=== PATIENT | female | born 1940 | race Caucasian/White ===

== ENCOUNTER → 2017-08-10 | Day surgery (SDC) | payer MEDICARE, SELFPAY | END | disposition home or self-care (01) | PROVIDERS: PCP Physician Assistant; Visit Provider Ophthalmology | DX: H25.12 Age-related nuclear cataract, left eye (principal); H40.119 Primary open-angle glaucoma, unspecified eye; I10 Essential (primary) hypertension | CPT/HCPCS: 66984; J2250; J3010 ==

== ENCOUNTER → 2017-09-17 09:58 | Outpatient (CLI) | payer MEDICARE, SELFPAY ==
--- NOTE | 2017-09-17 | DI.MG.S_ITS ---
BILATERAL DIGITAL DIAGNOSTIC MAMMOGRAM 3D/2D POST LUMPECTOMY: 09/17/2017 CLINICAL: Breast pain. Comparison is made to exams dated: 05/13/2016 mammogram, 09/14/2014 mammogram, and 07/21/2013 mammogram - [facility]. The tissue of both breasts is predominantly fatty. The left breast has post-operative findings. No significant masses, calcifications, or other findings are seen in either breast. IMPRESSION: NEGATIVE There is no abnormality seen in the left breast to correspond with the area of clinical concern, however, clinical followup is recommended. There is no mammographic evidence of malignancy. A 1 year screening mammogram is recommended. Note is made of the history of left breast cancer treated with surgery alone. Recommend continued clinical followup of the surgical site and if needed bilateral breast MRI with and without contrast. This exam was interpreted at Station ID: [id number]. NOTE: For mammograms, a report in lay terms will be sent to the patient. Approximately 15% of breast malignancies will not be visualized mammographically. In the management of a palpable breast mass, a negative mammogram must not discourage biopsy of a clinically suspicious lesion. Electronically Signed By: Rick Berry M.D. cj/:09/17/2017 12:33:40 copy to: ERNA JORGE letter sent: Clinical Evaluation ACR BI-RADS Category 1: Negative [id number]
== END ==
PROVIDERS: PCP Physician Assistant; Visit Provider Physician Assistant
DX: N64.4 Mastodynia (principal)
CPT/HCPCS: 77066; G0279

== ENCOUNTER → 2017-11-02 14:52 | Outpatient (CLI) | payer MEDICARE, SELFPAY ==
--- NOTE | 2017-11-02 | DI.RAD.S_ITS ---
PROCEDURE: XR HIP W PEL IF DONE RT 2V INDICATIONS: PAIN IN RIGHT HIP TECHNIQUE: AP pelvis with lateral view(s) of the right hip(s). COMPARISON: [facility], , HIPBILAT 3TO4V W PEL IF PERFD, 02/23/2017, 10:41. FINDINGS: Bones: There is a subcapital fracture of the right femoral neck with minimal displacement. Pelvic ring appears intact. No suspicious bony lesions. Soft tissues: The visualized bowel gas pattern is normal. No suspicious soft tissue calcifications. IMPRESSION: Minimally displaced subcapital fracture of the right femoral neck. Dictated by: Rosalina Calderón M.D. on 11/02/2017 at 16:05 Approved by: Rosalina Calderón M.D. on 11/02/2017 at 16:07
== END ==
PROVIDERS: PCP Physician Assistant; Visit Provider Physician Assistant
DX: S72.011A Unspecified intracapsular fracture of right femur, initial encounter for closed fracture (principal); M25.551 Pain in right hip
CPT/HCPCS: 73502

== ENCOUNTER 2017-11-02 15:42 | Inpatient (IN) | payer MEDICARE, SELFPAY ==
[2017-11-02] VITALS (9 sets, daily range): BP systolic 128–157; BP diastolic 80–96; PULSE 75–87; RESP 13–20; TEMP 36.4–36.6; O2SAT 95–100; BMI 26.9
--- NOTE | 2017-11-02 16:20 | ED.LOWEXIN ---
HPI - Extremity Injury (Lower) <Taty Leung PA-C - Last Filed: 11/02/17 22:44> General Chief Complaint: Extremity Injury, Lower Stated Complaint: HIP FX Time Seen by Provider: 11/02/17 16:20 Source: patient Mode of arrival: ambulatory Limitations: no limitations History of Present Illness HPI Narrative: This 77-year-old female was walking out of a restaurant when she is slipped on a curb and fell onto her right hip. She denies any other contusions or injuries such as head contusion. She does not have neck pain or spinal pain, and states that she actually walked on the curb and drove to her scheduled doctor's appointment, but it was painful to walk. She was sent for x-ray from that office and found to have a fracture so presents here. She states that she has pain with certain movements such as trying to cross her leg, but is not having pain in the hip at rest. She denies any weakness or paresthesia in the leg. She states that she simply tripped and denies any chest pain, dizziness, or other symptoms leading to her fall Related Data Home Medications Medication Instructions Recorded Confirmed cholecalciferol (vitamin D3) 1 tab PO QDAY #0 05/29/11 11/02/17 [Vitamin D3] melatonin 10 mg PO HSP PRN #0 05/29/11 11/02/17 multivitamin [Multiple Vitamins] 1 tab PO QDAY #0 05/29/11 11/02/17 simvastatin 20 mg PO HS #0 05/29/11 11/02/17 spironolactone 12.5 mg PO QDAY #0 05/29/11 11/02/17 yrwedmr-ixzzdzbcmjnci-oqhmbhhm 2 tab PO Q6HP PRN #0 01/12/17 11/02/17 [Excedrin Extra Strength] carvedilol [Coreg] 3.125 mg PO BID #0 01/12/17 11/02/17 omega 0-nes-skf-fish oil [Omera] 1,200 mg PO QDAY #0 01/12/17 11/02/17 timolol maleate 1 drp OPHTH BID #0 01/12/17 11/02/17 latanoprost [Xalatan] 1 drp OPHTH HS #0 08/10/17 11/02/17 aspirin 81 mg PO DAILY 11/02/17 11/02/17 bupropion HCl 150 mg PO BID 11/02/17 11/02/17 cetirizine 10 mg PO DAILY 11/02/17 11/02/17 denosumab [Prolia] 60 mg SUB-Q [id number] 11/02/17 11/02/17 duloxetine See Label Instructions .ROUTE 11/02/17 11/02/17 .COMPLEX meloxicam 15 mg PO DAILY 11/02/17 11/02/17 omeprazole 20 mg PO BID 11/02/17 11/02/17 oxycodone-acetaminophen [Percocet] 1 tab PO Q12H PRN 11/02/17 11/02/17 zonisamide 100 mg PO DAILY 11/02/17 11/02/17 Previous Rx's Medication Instructions Recorded erenumab-aooe 70 mg/mL 70 mg SUBCUT QMONTH #1 ml 10/28/17 subcutaneous auto-injector Allergies Allergy/AdvReac Type Severity Reaction Status Date / Time No Known Drug Allergies Allergy Unverified 10/28/17 13:12 Review of Systems <Taty Leung PA-C - Last Filed: 11/02/17 22:44> Review of Systems All systems reviewed & are unremarkable except as noted in HPI and below Exam <Taty Leung PA-C - Last Filed: 11/02/17 22:44> Initial Vital Signs Initial Vital Signs: Vital Signs Temperature 98 F 11/02/17 15:56 Pulse Rate 87 11/02/17 15:56 Respiratory Rate 13 11/02/17 15:56 Blood Pressure 147/81 H 11/02/17 15:56 Pulse Oximetry 98 11/02/17 15:56 GENERAL APPEARANCE: Patient sitting comfortably, in no distress. NECK: Supple LUNGS: Clear to auscultation bilaterally. HEART: Rate and rhythm regular, normal S1 and S2, no S3 or S4. ABDOMEN: Soft, nontender, nondistended palpable DERMATOLOGIC: No edema or ecchymoses on the hip, nor abrasions. She has various small abrasions on the right knee and right upper extremity NEUROLOGIC: Alert and oriented with normal speech and coordination MS: TTP over the R. anterolateral hip. Reduced range of motion secondary to tenderness. No tenderness to palpation about the knee or ankle with normal flexion and extension of the knee. EXTREMITIES: No cyanosis or edema, pedal pulses are intact on the right and sensation is grossly intact <Angeles Cortes DO - Last Filed: 11/03/17 08:08> Initial Vital Signs Initial Vital Signs: Vital Signs Temperature 98 F 11/02/17 15:56 Pulse Rate 87 11/02/17 15:56 Respiratory Rate 13 11/02/17 15:56 Blood Pressure 147/81 H 11/02/17 15:56 Pulse Oximetry 98 11/02/17 15:56 Course <Taty Leung PA-C - Last Filed: 11/02/17 22:44> Additional Information: [address] Tracy pest control technician for Ortho. He requested that we get CT scan and then phone when results are back so he can evaluate. 1800 Dr. Tracy has reviewed CT and seen patient. He requested she be admitted as inpatient to Medicine and he will follow and plan for surgery probably on . I spoke with Dr. Graff pest control technician for Internal Medicine who is agreeable with admission. Basic lab work and EKG ordered. Orders Ordered: Acetaminophen (Tylenol) 650 mg PO Q6HR PRN PRN Reason: As Needed for Fever/Mild Pain Carvedilol (Coreg) 3.125 mg PO BID [facility] Last Admin: 11/02/17 21:00 Dose: 3.125 mg Duloxetine HCl (Cymbalta) 30 mg PO BID [facility] Last Admin: 11/02/17 21:00 Dose: 30 mg Dextrose/Sodium Chloride (Dextrose 5%-0.45% Ns) 1,000 mls @ 100 mls/hr IV CONT [facility] Last Admin: 11/03/17 08:00 Dose: 100 mls/hr Infusion: 11/03/17 06:49 Dose: 100 mls/hr Admin: 11/02/17 20:49 Dose: 100 mls/hr Latanoprost (Xalatan) 1 drops EYE-BOTH BEDTIME [facility] Last Admin: 11/02/17 21:01 Dose: 1 drops Loratadine (Claritin) 10 mg PO DAILY [facility] Melatonin (Melatonin) 9 mg PO BEDTIME PRN PRN Reason: Sleep Morphine Sulfate (Morphine) 2 mg IV Q4HR PRN PRN Reason: Pain, Moderate (4-6) Last Admin: 11/03/17 05:17 Dose: 2 mg Admin: 11/02/17 20:30 Dose: 2 mg Simvastatin (Zocor) 20 mg PO BEDTIME [facility] Last Admin: 11/02/17 21:01 Dose: 20 mg Spironolactone (Aldactone) 12.5 mg PO DAILY [facility] Timolol Maleate (Timoptic 0.5%) 1 drops EYE-RIGHT BID [facility] Last Admin: 11/02/17 21:01 Dose: 1 % Zonisamide (Zonegran) 100 mg PO DAILY [facility] Discontinued Medications Hydromorphone HCl (Dilaudid) 0.5 mg IV NOW ONE Stop: 11/02/17 16:42 Last Admin: 11/02/17 17:06 Dose: 0.5 mg Morphine Sulfate (Morphine) 2 mg IV Q4HR PRN PRN Reason: Pain, Moderate (4-6) Vital Signs - 8 hr 11/03/17 04:46 Temperature 97.9 F Pulse Rate 73 Respiratory Rate 18 Blood Pressure 124/77 H Pulse Oximetry 97 <Angeles Cortes, - Last Filed: 11/03/17 08:08> Orders Ordered: Acetaminophen (Tylenol) 650 mg PO Q6HR PRN PRN Reason: As Needed for Fever/Mild Pain Carvedilol (Coreg) 3.125 mg PO BID [facility] Last Admin: 11/02/17 21:00 Dose: 3.125 mg Duloxetine HCl (Cymbalta) 30 mg PO BID [facility] Last Admin: 11/02/17 21:00 Dose: 30 mg Dextrose/Sodium Chloride (Dextrose 5%-0.45% Ns) 1,000 mls @ 100 mls/hr IV CONT [facility] Last Admin: 11/03/17 08:00 Dose: 100 mls/hr Infusion: 11/03/17 06:49 Dose: 100 mls/hr Admin: 18 20:49 Dose: 100 mls/hr Latanoprost (Xalatan) 1 drops EYE-BOTH BEDTIME [facility] Last Admin: 11/02/17 21:01 Dose: 1 drops Loratadine (Claritin) 10 mg PO DAILY [facility] Melatonin (Melatonin) 9 mg PO BEDTIME PRN PRN Reason: Sleep Morphine Sulfate (Morphine) 2 mg IV Q4HR PRN PRN Reason: Pain, Moderate (4-6) Last Admin: 11/03/17 05:17 Dose: 2 mg Admin: 11/02/17 20:30 Dose: 2 mg Simvastatin (Zocor) 20 mg PO BEDTIME [facility] Last Admin: 11/02/17 21:01 Dose: 20 mg Spironolactone (Aldactone) 12.5 mg PO DAILY [facility] Timolol Maleate (Timoptic 0.5%) 1 drops EYE-RIGHT BID [facility] Last Admin: 11/02/17 21:01 Dose: 1 % Zonisamide (Zonegran) 100 mg PO DAILY [facility] Discontinued Medications Hydromorphone HCl (Dilaudid) 0.5 mg IV NOW ONE Stop: 11/02/17 16:42 Last Admin: 11/02/17 17:06 Dose: 0.5 mg Morphine Sulfate (Morphine) 2 mg IV Q4HR PRN PRN Reason: Pain, Moderate (4-6) Vital Signs - 8 hr 11/03/17 04:46 Temperature 97.9 F Pulse Rate 73 Respiratory Rate 18 Blood Pressure 124/77 H Pulse Oximetry 97 MDM - Extremity Injury (Lower) <Taty Leung PA-C - Last Filed: 11/02/17 22:44> Lab Data Attestation: I reviewed the patient's lab results. Result diagrams: 11/02/17 16:14 11/02/17 16:14 Lab Results 11/02/17 11/02/17 11/02/17 Range/Units 16:14 16:14 16:14 WBC 10.5 (4.5-11.0) X10^3/uL RBC 3.94 L (4.0-5.2) X10^6/uL Hgb 12.4 (12.0-16.0) g/dL Hct 37.1 (36-46) % MCV 94.3 (80-100) fL MCH 31.4 (26-34) PG MCHC 33.3 (30-36) % RDW 14.0 (11.6-14.8) % Plt Count 350 (150-400) X10^3/uL Neut % (Auto) 55.1 (50-75) % Lymph % (Auto) 31.4 (25-40) % [place] % (Auto) 8.2 (3-14) % Eos % (Auto) 4.0 (2-4) % Baso % (Auto) 1.3 (0-2) % Neut # (Auto) 5800 (2548-5240) /uL PT 11.6 (10.1-12.7) SECONDS INR 1.1 (0.9-1.3) APTT 28 (26.4-36.2) SECONDS Sodium 139 (137-145) mmol/L Potassium 3.7 (3.4-5.1) mmol/L Chloride 105 (98-107) mmol/L Carbon Dioxide 23 (22-32) mmol/L BUN 18 H (7-17) mg/dL Creatinine 1.30 H (0.52-1.04) mg/dL Estimated GFR 39.8 L (>60) mL/min BUN/Creatinine Ratio 13.8 (6-22) Glucose 122 H (80-110) mg/dL Calcium 9.3 (8.4-10.2) mg/dL Imaging Data hip: Radiologist's impression: View Report History [address] [address] [address] Scan Report Signed Patient: Yaneth Laguerre MR#: [id number] : 1940 Acct:[id number] Age/Sex: 77 / F Date of Service: 11/02/17 Loc: ED Accession Number: [id number] Procedure: CT LE RT wo con Ordering Provider: Taty Leung P.A-C PROCEDURE: CT LE RT WO CON INDICATIONS: right hip fx, req per ortho TECHNIQUE: Noncontrast 3 mm axial sections acquired through the bony pelvis. Additional 3 mm axial sections acquired through the symptomatic hip joint, with coronal and sagittal reformats. COMPARISON: [facility], CR, XR HIP W PEL IF DONE RT 2V, 11/02/2017, 14:57. FINDINGS: Image quality: Excellent. Bones: Mildly displaced and impacted fracture of the right subcapital femoral neck is present, which demonstrates mild angulation. Soft tissues: Aortoiliac stent graft has been placed. IMPRESSION: No change in right subcapital femoral neck fracture. Dictated by: Trent Gamboa M.D. on 11/02/2017 at 17:41 Approved by: Trent Gamboa M.D. on 11/02/2017 at 17:43 View Report History [address] [address] XRay Report Signed Patient: Yaneth Laguerre MR#: [id number] : 1940 Acct:[id number] Age/Sex: 77 / F Date of Service: 11/02/17 Loc: [facility] Accession Number: [id number] Procedure: XR hip w pel if done RT 2V Ordering Provider: Maryanne Gaviria P.A-C PROCEDURE: XR HIP W PEL IF DONE RT 2V INDICATIONS: PAIN IN RIGHT HIP TECHNIQUE: AP pelvis with lateral view(s) of the right hip(s). COMPARISON: [facility], , HIPBILAT 3TO4V W PEL IF PERFD, 02/23/2017, 10:41. FINDINGS: Bones: There is a subcapital fracture of the right femoral neck with minimal displacement. Pelvic ring appears intact. No suspicious bony lesions. Soft tissues: The visualized bowel gas pattern is normal. No suspicious soft tissue calcifications. IMPRESSION: Minimally displaced subcapital fracture of the right femoral neck. Dictated by: Rosalina Calderón M.D. on 11/02/2017 at 16:05 Approved by: Rosalina Calderón M.D. on 11/02/2017 at 16:07 ECG Data Attestation: I personally reviewed and interpreted this ECG as follows: (Normal sinus rhythm with rate 76, no acute ST/T changes) <Angeles Cortes, - Last Filed: 11/03/17 08:08> Lab Data Lab Results 11/02/17 11/02/17 11/02/17 Range/Units 16:14 16:14 16:14 WBC 10.5 (4.5-11.0) X10^3/uL RBC 3.94 L (4.0-5.2) X10^6/uL Hgb 12.4 (12.0-16.0) g/dL Hct 37.1 (36-46) % MCV 94.3 (80-100) fL MCH 31.4 (26-34) PG MCHC 33.3 (30-36) % RDW 14.0 (11.6-14.8) % Plt Count 350 (150-400) X10^3/uL Neut % (Auto) 55.1 (50-75) % Lymph % (Auto) 31.4 (25-40) % [place] % (Auto) 8.2 (3-14) % Eos % (Auto) 4.0 (2-4) % Baso % (Auto) 1.3 (0-2) % Neut # (Auto) 5800 (1647-6491) /uL PT 11.6 (10.1-12.7) SECONDS INR 1.1 (0.9-1.3) APTT 28 (26.4-36.2) SECONDS Sodium 139 (137-145) mmol/L Potassium 3.7 (3.4-5.1) mmol/L Chloride 105 (98-107) mmol/L Carbon Dioxide 23 (22-32) mmol/L BUN 18 H (7-17) mg/dL Creatinine 1.30 H (0.52-1.04) mg/dL Estimated GFR 39.8 L (>60) mL/min BUN/Creatinine Ratio 13.8 (6-22) Glucose 122 H (80-110) mg/dL Calcium 9.3 (8.4-10.2) mg/dL Discharge Plan Departure Patient Disposition: Admitted As Inpatient Clinical Impression: Closed displaced fracture of right femoral neck Discharge Date/Time: 11/02/17 20:13 Interventions: ED Discharge Assessment Last Done: 11/02/17 20:12 Admit Date/Time: 11/02/17 19:39 Admit Provider: Joel Graff <Angeles Cortes DO - Last Filed: 11/03/17 08:08> Cosign ED Attending Janet Attestation: I was immediately available in the department for consultation. Documentation has been reviewed. I agree with assessment and plan.
--- NOTE | 2017-11-02 16:28 | PC.NURSE ---
Pt states she is not in much pain if she is lying supine without moving the affected limb. Both legs are warm, pink, and dry. Pulses are equal. She denies any symptoms at this time.
--- NOTE | 2017-11-02 16:53 | DI.CT.S_ITS ---
PROCEDURE: CT LE RT WO CON INDICATIONS: right hip fx, req per ortho TECHNIQUE: Noncontrast 3 mm axial sections acquired through the bony pelvis. Additional 3 mm axial sections acquired through the symptomatic hip joint, with coronal and sagittal reformats. COMPARISON: [facility], CR, XR HIP W PEL IF DONE RT 2V, 11/02/2017, 14:57. FINDINGS: Image quality: Excellent. Bones: Mildly displaced and impacted fracture of the right subcapital femoral neck is present, which demonstrates mild angulation. Soft tissues: Aortoiliac stent graft has been placed. IMPRESSION: No change in right subcapital femoral neck fracture. Dictated by: Trent Gamboa M.D. on 11/02/2017 at 17:41 Approved by: Trent Gamboa M.D. on 11/02/2017 at 17:43
[2017-11-02] MEDS: HYDROMORPHONE 1 MG INJ 0.5 MG IV (17:06)
[2017-11-02 19:27] LABS: Add Manual Diff / Slide Review NO; Basophils Percent Auto 1.3 % (0-2); Hematocrit 37.1 % (36-46); Hemoglobin 12.4 g/dL (12.0-16.0); INR 1.1 (0.9-1.3); Lymphocytes Percent Auto 31.4 % (25-40); Mean Corpuscular HGB Conc 33.3 % (30-36); Mean Corpuscular Hemoglobin 31.4 PG (26-34); Mean Corpuscular Volume 94.3 fL (80-100); Monocytes Percent Auto 8.2 % (3-14); Neutrophils Absolute Auto 5800 /uL (3000-5900); Neutrophils Percent Auto 55.1 % (50-75); Platelet Count 350 X10^3/uL (150-400); Prothrombin Time 11.6 SECONDS (10.1-12.7); Red Blood Cell Count 3.94 X10^6/uL (4.0-5.2); White Blood Cell Count 10.5 X10^3/uL (4.5-11.0)
[2017-11-02 19:30] LABS: PTT Partial Thromboplastin Tim 28 SECONDS (26.4-36.2)
[2017-11-02 19:32] LABS: BUN Creatinine Ratio 13.8 (6-22); Blood Urea Nitrogen 18 mg/dL (7-17); Calcium 9.3 mg/dL (8.4-10.2); Carbon Dioxide 23 mmol/L (22-32); Chloride 105 mmol/L (98-107); Estimated Glomerular Filt Rate 39.8 mL/min (>60); Glucose 122 mg/dL (80-110); HEMOLYSIS 31 (0-50); Potassium 3.7 mmol/L (3.4-5.1); Sodium 139 mmol/L (137-145)
[2017-11-02] MEDS: MORPHINE 4 MG/ML INJ 2 MG IV (20:30)
[2017-11-02] MEDS: DEXTROSE 5%-0.45% NS 1,000 ML 100 ML IV (20:49)
[2017-11-02] MEDS: DULOXETINE 30 MG CAPSULE PO (21:00)
[2017-11-02] MEDS: CARVEDILOL 3.125 MG TABLET PO (21:00)
[2017-11-02] MEDS: LATANOPROST 0.005% OPHTH 2.5 ML 1 DROPS EYE-BOTH (21:01)
[2017-11-02] MEDS: TIMOLOL 0.5% OPHTH 1 DROPS EYE-RIGHT (21:01)
[2017-11-02] MEDS: SIMVASTATIN 20 MG TABLET PO (21:01)
[2017-11-03 04:46] VITALS: BP 124/77; PULSE 73; RESP 18; TEMP 36.6; O2SAT 97
[2017-11-03] MEDS: MORPHINE 4 MG/ML INJ 2 MG IV ×3 (05:17→16:30)
--- NOTE | 2017-11-03 05:31 | PC.NURSE ---
Pt is AxOx3, VSS. Pt given 2mg Morphine IV 1x for pain 09/26. Pts blanton patent and draining 350cc of clear yellow urine. Pt kept NPO for now as per orders, Dr. Dash contacted abt order and said to continue NPO status until further clarification in the morning. IVF running as ordered. B/L SCD on.
[2017-11-03 07:00] VITALS: O2SAT 97
[2017-11-03 08:00] VITALS: BP 154/91; PULSE 69; RESP 16; TEMP 36.1; O2SAT 97
[2017-11-03] MEDS: DEXTROSE 5%-0.45% NS 1,000 ML 100 ML IV ×2 (08:00→17:31)
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
[2017-11-03] MEDS: CARVEDILOL 3.125 MG TABLET PO ×2 (09:44→20:54)
[2017-11-03] MEDS: DULOXETINE 30 MG CAPSULE PO ×2 (09:44→20:54)
[2017-11-03] MEDS: ZONISAMIDE 100 MG CAPSULE PO (09:44)
[2017-11-03] MEDS: LORATADINE 10 MG TABLET PO (09:44)
[2017-11-03] MEDS: SPIRONOLACTONE 25 MG TABLET 12.5 MG PO (09:44)
[2017-11-03] MEDS: TIMOLOL 0.5% OPHTH 1 DROPS EYE-RIGHT ×2 (09:44→20:56)
--- NOTE | 2017-11-03 11:05 | PM.PN.1 ---
Subjective Date Patient Seen: 11/03/17 Time Patient Seen: 11:05 Interval history: Hospital day 1. Pt with RT hip neck fracture after fall. Scheduled for surgery tomorrow with Dr. Thompson. 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 Exam Vital Signs (past 8 hours): - 11/03/17 04:46 11/03/17 07:00 11/03/17 08:00 Temperature 97.9 F 96.9 F L Pulse Rate 73 69 Respiratory Rate 18 16 Blood Pressure 124/77 H 154/91 H Pulse Oximetry 97 97 97 Oxygen Delivery Method Room Air Narrative Exam Narrative: Pt in bed. CHILDR[employer]'S SERVICE WORKER. Shelley. Rt hip TTP. Bilateral calves soft and nontender. Neurovascular status intact. 5/5 right ankle strength. Patient is alert and orient x3. Dressing over right carreon area. Objective Labs Result Diagrams: 11/02/17 16:14 11/02/17 16:14 Labs: Laboratory Results - last 24 hr 11/02/17 11/02/17 11/02/17 16:14 16:14 16:14 WBC 10.5 RBC 3.94 L Hgb 12.4 Hct 37.1 MCV 94.3 MCH 31.4 MCHC 33.3 RDW 14.0 Plt Count 350 Neut % (Auto) 55.1 Lymph % (Auto) 31.4 [place] % (Auto) 8.2 Eos % (Auto) 4.0 Baso % (Auto) 1.3 Neut # (Auto) 5800 PT 11.6 INR 1.1 APTT 28 Sodium 139 Potassium 3.7 Chloride 105 Carbon Dioxide 23 BUN 18 H Creatinine 1.30 H Estimated GFR 39.8 L BUN/Creatinine Ratio 13.8 Glucose 122 H Calcium 9.3 Assessment & Plan Plan: Assessment/Plan Narrative: Hospital day 1 patient with a right femoral neck fracture. Plan for surgery tomorrow. NPO after midnight. Continue DVT prophylaxis with SCD. Quality VTE Deep Vein Thrombosis/Pulmonary Embolism Present on Admission: No
--- NOTE | 2017-11-03 11:09 | P.PN_ITS ---
Subjective Date Patient Seen: 11/03/17 Time Patient Seen: 11:05 Interval history: Hospital day 1. Pt with RT hip neck fracture after fall. Scheduled for surgery tomorrow with Dr. Thompson. Pt on TOP POLISHER for pain. Exam Vital Signs (past 8 hours): - 11/03/17 04:46 11/03/17 07:00 11/03/17 08:00 Temperature 97.9 F 96.9 F L Pulse Rate 73 69 Respiratory Rate 18 16 Blood Pressure 124/77 H 154/91 H Pulse Oximetry 97 97 97 Oxygen Delivery Method Room Air Narrative Exam Narrative: Pt in bed. TOP POLISHER. Shelley. Rt hip TTP. Bilateral calves soft and nontender. Neurovascular status intact. 5/5 right ankle strength. Patient is alert and orient x3. Dressing over right carreon area. Objective Labs Result Diagrams: 11/02/17 16:14 11/02/17 16:14 Labs: Laboratory Results - last 24 hr 11/02/17 11/02/17 11/02/17 16:14 16:14 16:14 WBC 10.5 RBC 3.94 L Hgb 12.4 Hct 37.1 MCV 94.3 MCH 31.4 MCHC 33.3 RDW 14.0 Plt Count 350 Neut % (Auto) 55.1 Lymph % (Auto) 31.4 [place] % (Auto) 8.2 Eos % (Auto) 4.0 Baso % (Auto) 1.3 Neut # (Auto) 5800 PT 11.6 INR 1.1 APTT 28 Sodium 139 Potassium 3.7 Chloride 105 Carbon Dioxide 23 BUN 18 H Creatinine 1.30 H Estimated GFR 39.8 L BUN/Creatinine Ratio 13.8 Glucose 122 H Calcium 9.3 Assessment & Plan Plan: Assessment/Plan Narrative: Hospital day 1 patient with a right femoral neck fracture. Plan for surgery tomorrow. NPO after midnight. Continue DVT prophylaxis with SCD. Quality VTE Deep Vein Thrombosis/Pulmonary Embolism Present on Admission: No
[2017-11-03] MEDS: PANTOPRAZOLE 40 MG TABLET PO (12:47)
--- NOTE | 2017-11-03 12:57 | CM.DPNOTE ---
Addendum entered by Jeannine Perez LPN 11/03/17 13:15: Need: PASRR: can complete when pt is closer to d/c Original Note: Discharge Planning/Care Management DCP: assessment: case received, EMR reviewed and met with pt. Introduced self and role. Pt is a 77 year female who admitted last evening after a fall resulting in hip fracture. Admitted to hospitalist team. Ortho team consulting: surgery to repair this scheduled for tomorrow. Payer: Medicare and [employer] PCP: Zeus Gaviria Inpt admission status/confirmed by UR RN Pt is independent at baseline. Discussed d/c options for rehab after hospital with short snf stay identified as the plan. Snf choice list discussed: Decision: [facility] P: [facility] when stable for same....surgery tomorrow. Discharge Assessment Start: 11/03/17 12:46 Freq: Status: Active Protocol: Document 11/03/17 12:47 ITV (Rec: 11/03/17 12:57 ITV [id number]) Discharge Planning Assessment History Provided By Patient Medical Record Is this patient on Medicare? Yes Prior Living Arrangements House Household Members none Comment has had snf stay at [facility] and post snf in past/not recent Patient Discharge Plan Description Residential Facility Referrals Initiated Residential Comment [facility]/referral: [facility]: will review, expects to accept. Discharge Plan Residential Facility If patient plan is SNF: Has PASSR been will be done prior to d/c. completed? Review Status In Process Next Review Type Continued Stay Review
[2017-11-03 15:46] VITALS: BP 149/89; PULSE 76; RESP 18; TEMP 36.6; O2SAT 95
[2017-11-03] MEDS: MORPHINE 2 MG/ML INJ IV (16:30)
[2017-11-03 19:11] VITALS: BP 148/91; PULSE 85; RESP 18; TEMP 36.9; O2SAT 94
[2017-11-03] MEDS: LATANOPROST 0.005% OPHTH 2.5 ML 1 DROPS EYE-BOTH (20:54)
[2017-11-03] MEDS: SIMVASTATIN 20 MG TABLET PO (20:55)
[2017-11-04] VITALS (25 sets, daily range): BP systolic 101–178; BP diastolic 66–100; PULSE 75–100; RESP 10–18; TEMP 36.4–36.9; O2SAT 85–97; BMI 27.2
[2017-11-04] MEDS: MORPHINE 2 MG/ML INJ IV ×2 (00:19→11:33)
[2017-11-04] MEDS: DEXTROSE 5%-0.45% NS 1,000 ML 100 ML IV (03:20)
--- NOTE | 2017-11-04 03:35 | PC.NURSE ---
[employer]- Pt A&OX4, able to make needs known using call light. Pt reported 6/10 pain to right hip and anterior headache that is a chronic issue. Medicated with 2mg Morphine IV PRN with good effect, pain decreased to 3/10. IVF infusing well to right AC PIV. NPO since midnight for surgery later today. RLE CMS+, PPP, pt has good dorsal and plantar flexion. OOB with 1PA with LAPPING MACHINE SET UP OPERATOR using walker to BSC for large soft BM. Pt tolerated fair. Educated on repositioning in bed with slight tilt and not crossing BLE, keeping a pillow in between BLE. Pt stated she understood. Shelley insitu draining clear yellow urine. High fall risk precautions in place, bed alarm on.
[2017-11-04] MEDS: PANTOPRAZOLE 40 MG TABLET PO (06:28)
[2017-11-04 08:54] LABS: Add Manual Diff / Slide Review NO; Basophils Percent Auto 0.4 % (0-2); Eosinophils Percent Auto 4.2 % (2-4); Hematocrit 36.2 % (36-46); Hemoglobin 12.2 g/dL (12.0-16.0); Lymphocytes Percent Auto 17.1 % (25-40); Mean Corpuscular HGB Conc 33.8 % (30-36); Mean Corpuscular Hemoglobin 31.8 PG (26-34); Mean Corpuscular Volume 94.2 fL (80-100); Monocytes Percent Auto 9.7 % (3-14); Neutrophils Absolute Auto 6800 /uL (3000-5900); Neutrophils Percent Auto 68.6 % (50-75); Platelet Count 314 X10^3/uL (150-400); Red Blood Cell Count 3.84 X10^6/uL (4.0-5.2)
[2017-11-04 08:55] LABS: INR 1.1 (0.9-1.3); Prothrombin Time 11.4 SECONDS (10.1-12.7)
[2017-11-04 09:02] LABS: BUN Creatinine Ratio 12.2 (6-22); Blood Urea Nitrogen 11 mg/dL (7-17); Calcium 8.8 mg/dL (8.4-10.2); Carbon Dioxide 26 mmol/L (22-32); Chloride 104 mmol/L (98-107); Estimated Glomerular Filt Rate > 60.0 mL/min (>60); Glucose 117 mg/dL (80-110); HEMOLYSIS < 15 (0-50); Potassium 4.2 mmol/L (3.4-5.1); Sodium 136 mmol/L (137-145)
[2017-11-04] MEDS: CARVEDILOL 3.125 MG TABLET PO (09:27)
[2017-11-04] MEDS: TIMOLOL 0.5% OPHTH 1 DROPS EYE-RIGHT (09:27)
--- NOTE | 2017-11-04 10:23 | PM.PN.1 ---
Subjective Date Patient Seen: 11/04/17 Time Patient Seen: 10:23 Interval history: Hospital day 2 following right femoral neck subcapital fracture. The patient remained stable at the hospital. She is scheduled for right hip surgery at [address] Thompson. She is NPO. Patient does live alone. No stairs at home. Exam Vital Signs (past 8 hours): - 11/04/17 06:00 11/04/17 08:00 11/04/17 08:22 Temperature 97.9 F 98.5 F Pulse Rate 91 H 79 Respiratory Rate 18 16 Blood Pressure 158/97 H 178/92 H Pulse Oximetry 96 94 94 11/04/17 09:30 Temperature 98.5 F Pulse Rate 79 Respiratory Rate 16 Blood Pressure 178/92 H Pulse Oximetry 94 Oxygen Delivery Method Room Air Oxygen Flow Rate 0 Narrative Exam Narrative: Alert, oriented no acute distress resting in bed. Legs. No calf pain or swelling. Pulses symmetrical. Good sensation to touch her lower legs. Increased pain with movement of right hip. Objective Labs Result Diagrams: 11/04/17 08:25 11/04/17 08:25 Labs: Laboratory Results - last 24 hr 11/04/17 11/04/17 11/04/17 08:25 08:25 08:25 WBC 10.0 RBC 3.84 L Hgb 12.2 Hct 36.2 MCV 94.2 MCH 31.8 MCHC 33.8 RDW 14.0 Plt Count 314 Neut % (Auto) 68.6 Lymph % (Auto) 17.1 L [place] % (Auto) 9.7 Eos % (Auto) 4.2 H Baso % (Auto) 0.4 Neut # (Auto) 6800 H PT 11.4 INR 1.1 Sodium 136 L Potassium 4.2 Chloride 104 Carbon Dioxide 26 BUN 11 Creatinine 0.90 Estimated GFR > 60.0 BUN/Creatinine Ratio 12.2 Glucose 117 H Calcium 8.8 Assessment & Plan Plan: Assessment/Plan Narrative: Assessment: Right femoral neck subcapital fracture Patient will remain NPO. Plan right hip surgery later today by Dr. Thompson. Patient does live alone and may need either SNF or other help but did on her weight-bearing status postoperatively. Quality VTE Deep Vein Thrombosis/Pulmonary Embolism Present on Admission: No
--- NOTE | 2017-11-04 11:18 | PM.CN ---
History of Present Illness Date Patient Seen: 11/02/17 Time Patient Seen: 22:19 Chief complaint: HIP FX Reason for consult: Right hip pain Requesting provider: Negro Henning Narrative: Ms. Laguerre is a 77 yo female who had a fall from standing. She started to have right groin pain after she fell. She continue to weightbear L1 to a doctor's appointment afterwards. She continued to have groin pain and presented to the emergency room after x-ray was taken which showed a femoral neck fracture. 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 (Acute) Sleep apnea (Acute) Spinal stenosis of lumbar region (Acute) Vitamin D deficiency (Acute) Hyperglycemia (Chronic) Hyperlipidemia (Chronic) Social History household members: none Smoking Status: Never smoker alcohol intake: current Meds Home Medications Medication Instructions Recorded Confirmed Type cholecalciferol (vitamin D3) 1 tab PO QDAY #0 05/29/11 11/02/17 History [Vitamin D3] melatonin 10 mg PO HSP PRN #0 05/29/11 11/02/17 History multivitamin [Multiple Vitamins] 1 tab PO QDAY #0 05/29/11 11/02/17 History simvastatin 20 mg PO HS #0 05/29/11 11/02/17 History spironolactone 12.5 mg PO QDAY #0 05/29/11 11/02/17 History eoynpxc-sybttoexrhhll-kletyaqt 2 tab PO Q6HP PRN #0 01/12/17 11/02/17 History [Excedrin Extra Strength] carvedilol [Coreg] 3.125 mg PO BID #0 01/12/17 11/02/17 History omega 3-ikv-qlb-fish oil [Omera] 1,200 mg PO QDAY #0 01/12/17 11/02/17 History timolol maleate 1 drp OPHTH BID #0 01/12/17 11/02/17 History latanoprost [Xalatan] 1 drp OPHTH HS #0 08/10/17 11/02/17 History erenumab-aooe 70 mg/mL 70 mg SUBCUT QMONTH #1 ml 10/28/17 11/02/17 Rx subcutaneous auto-injector aspirin 81 mg PO DAILY 11/02/17 11/02/17 History bupropion HCl 150 mg PO BID 11/02/17 11/02/17 History cetirizine 10 mg PO DAILY 11/02/17 11/02/17 History denosumab [Prolia] 60 mg SUB-Q [id number] 11/02/17 11/02/17 History duloxetine See Label Instructions .ROUTE 11/02/17 11/02/17 History .COMPLEX meloxicam 15 mg PO DAILY 11/02/17 11/02/17 History omeprazole 20 mg PO BID 11/02/17 11/02/17 History oxycodone-acetaminophen [Percocet] 1 tab PO Q12H PRN 11/02/17 11/02/17 History zonisamide 100 mg PO DAILY 11/02/17 11/02/17 History Allergies Allergy/AdvReac Type Severity Reaction Status Date / Time No Known Drug Allergies Allergy Unverified 10/28/17 13:12 Review of Systems Review of Systems All systems reviewed & are unremarkable except as noted in HPI and below Exam Vital Signs (past 8 hours): - 11/04/17 06:00 11/04/17 08:00 11/04/17 08:22 Temperature 97.9 F 98.5 F Pulse Rate 91 H 79 Respiratory Rate 18 16 Blood Pressure 158/97 H 178/92 H Pulse Oximetry 96 94 94 11/04/17 09:30 Temperature 98.5 F Pulse Rate 79 Respiratory Rate 16 Blood Pressure 178/92 H Pulse Oximetry 94 Oxygen Delivery Method Room Air Oxygen Flow Rate 0 Extrem Other: RLE with pain on ROM and palpation in the groin, limited exam due to pain Objective Imaging CT right hip: My impression: Right minimumly displaced subcapital fx of the femoral neck Labs Result Diagrams: 11/04/17 08:25 11/04/17 08:25 Labs: Laboratory Results - last 24 hr 0711/04/17 11/04/17 08:25 08:25 08:25 WBC 10.0 RBC 3.84 L Hgb 12.2 Hct 36.2 MCV 94.2 MCH 31.8 MCHC 33.8 RDW 14.0 Plt Count 314 Neut % (Auto) 68.6 Lymph % (Auto) 17.1 L [place] % (Auto) 9.7 Eos % (Auto) 4.2 H Baso % (Auto) 0.4 Neut # (Auto) 6800 H PT 11.4 INR 1.1 Sodium 136 L Potassium 4.2 Chloride 104 Carbon Dioxide 26 BUN 11 Creatinine 0.90 Estimated GFR > 60.0 BUN/Creatinine Ratio 12.2 Glucose 117 H Calcium 8.8 Assessment & Plan Plan: Assessment/Plan Narrative: 77 yo F with active life style has minimumly displaced fermoal neck fx. After discussing risks and benefits of treatment options, patient elected to proceed with surgery treatment. Patient will be scheduled for closed reduction internal fixation of her femoral neck fracture on the right side. Patient is scheduled to have surgery after medical clearance. Time Spent With Patient Time with patient: 25 - 35 minutes
--- NOTE | 2017-11-04 11:24 | P.CONS_ITS ---
History of Present Illness Date Patient Seen: 11/02/17 Time Patient Seen: 22:19 Chief complaint: HIP FX Reason for consult: Right hip pain Requesting provider: Negro Henning Narrative: Ms. Laguerre is a 77 yo female who had a fall from standing. She started to have right groin pain after she fell. She continue to weightbear L1 to a doctor's appointment afterwards. She continued to have groin pain and presented to the emergency room after x-ray was taken which showed a femoral neck fracture. 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 (Acute) Sleep apnea (Acute) Spinal stenosis of lumbar region (Acute) Vitamin D deficiency (Acute) Hyperglycemia (Chronic) Hyperlipidemia (Chronic) Social History household members: none Smoking Status: Never smoker alcohol intake: current Meds Home Medications Medication Instructions Recorded Confirmed Type cholecalciferol (vitamin D3) 1 tab PO QDAY #0 05/29/11 11/02/17 History [Vitamin D3] melatonin 10 mg PO HSP PRN #0 05/29/11 11/02/17 History multivitamin [Multiple Vitamins] 1 tab PO QDAY #0 05/29/11 11/02/17 History simvastatin 20 mg PO HS #0 05/29/11 11/02/17 History spironolactone 12.5 mg PO QDAY #0 05/29/11 11/02/17 History krbxhgf-njtfkxmojsjui-oeekevbt 2 tab PO Q6HP PRN #0 01/12/17 11/02/17 History [Excedrin Extra Strength] carvedilol [Coreg] 3.125 mg PO BID #0 01/12/17 11/02/17 History omega 8-oof-kqz-fish oil [Omera] 1,200 mg PO QDAY #0 01/12/17 11/02/17 History timolol maleate 1 drp OPHTH BID #0 01/12/17 11/02/17 History latanoprost [Xalatan] 1 drp OPHTH HS #0 08/10/17 11/02/17 History erenumab-aooe 70 mg/mL 70 mg SUBCUT QMONTH #1 ml 10/28/17 11/02/17 Rx subcutaneous auto-injector aspirin 81 mg PO DAILY 11/02/17 11/02/17 History bupropion HCl 150 mg PO BID 11/02/17 11/02/17 History cetirizine 10 mg PO DAILY 11/02/17 11/02/17 History denosumab [Prolia] 60 mg SUB-Q [id number] 11/02/17 11/02/17 History duloxetine See Label Instructions .ROUTE 11/02/17 11/02/17 History .COMPLEX meloxicam 15 mg PO DAILY 11/02/17 11/02/17 History omeprazole 20 mg PO BID 11/02/17 11/02/17 History oxycodone-acetaminophen [Percocet] 1 tab PO Q12H PRN 11/02/17 11/02/17 History zonisamide 100 mg PO DAILY 11/02/17 11/02/17 History Allergies Allergy/AdvReac Type Severity Reaction Status Date / Time No Known Drug Allergies Allergy Unverified 10/28/17 13:12 Review of Systems Review of Systems All systems reviewed & are unremarkable except as noted in HPI and below Exam Vital Signs (past 8 hours): - 11/04/17 06:00 11/04/17 08:00 11/04/17 08:22 Temperature 97.9 F 98.5 F Pulse Rate 91 H 79 Respiratory Rate 18 16 Blood Pressure 158/97 H 178/92 H Pulse Oximetry 96 94 94 11/04/17 09:30 Temperature 98.5 F Pulse Rate 79 Respiratory Rate 16 Blood Pressure 178/92 H Pulse Oximetry 94 Oxygen Delivery Method Room Air Oxygen Flow Rate 0 Extrem Other: RLE with pain on ROM and palpation in the groin, limited exam due to pain Objective Imaging CT right hip: My impression: Right minimumly displaced subcapital fx of the femoral neck Labs Result Diagrams: 11/04/17 08:25 11/04/17 08:25 Labs: Laboratory Results - last 24 hr 0711/04/17 11/04/17 08:25 08:25 08:25 WBC 10.0 RBC 3.84 L Hgb 12.2 Hct 36.2 MCV 94.2 MCH 31.8 MCHC 33.8 RDW 14.0 Plt Count 314 Neut % (Auto) 68.6 Lymph % (Auto) 17.1 L [place] % (Auto) 9.7 Eos % (Auto) 4.2 H Baso % (Auto) 0.4 Neut # (Auto) 6800 H PT 11.4 INR 1.1 Sodium 136 L Potassium 4.2 Chloride 104 Carbon Dioxide 26 BUN 11 Creatinine 0.90 Estimated GFR > 60.0 BUN/Creatinine Ratio 12.2 Glucose 117 H Calcium 8.8 Assessment & Plan Plan: Assessment/Plan Narrative: 77 yo F with active life style has minimumly displaced fermoal neck fx. After discussing risks and benefits of treatment options, patient elected to proceed with surgery treatment. Patient will be scheduled for closed reduction internal fixation of her femoral neck fracture on the right side. Patient is scheduled to have surgery after medical clearance. Time Spent With Patient Time with patient: 25 - 35 minutes
--- NOTE | 2017-11-04 11:47 | PC.NURSE ---
Pt MEGHAN and franny emptied to prepare Pt for surgery. Surgery is able to take Pt early and she will be leaving shortly. 2mg IV Morphine given at 1133. Called Pt's son on Pt behalf to notify him that she would be leaving for surgery in a few minutesl
[2017-11-04] MEDS: LACTATED RINGERS 1,000 ML 42 ML IV (12:20)
--- NOTE | 2017-11-04 12:37 | SUR.HOLD ---
Pt. has abrasion to right elbow due to fall yesterday () at home. ER had dressed the wound yesterday; today this RN (author) noted dried blood on current dressing. This RN changed the dressing while in holding; using N.S. to clean the abrasion, sterile 2x2 to gently scrub/cleanse and to pat dry, antibiotic ointment applied to telfa and telfa applied to abrasion right elbow. Used paper tape to secure onto skin.
--- NOTE | 2017-11-04 13:00 | CM.DPC ---
DCP Cont: Patient having surgery today. Will continue to note progress with therapy team. Called [facility] to ensure that they would hold a bed. P: Will plan on [facility] if patient has 3 day length of stay. Florencia Kent RN/[employer]
[2017-11-04] MEDS: CEFAZOLIN VIAL 2 GM in SODIUM CHLORIDE 0.9% 100 ML 200 ML IV (13:48)
--- NOTE | 2017-11-04 14:21 | SUR.OPER ---
Head on pillow. Supine on fracture table with operative leg secured in traction. Other leg secured in padded stirrup. Arms across chest, secured with sheet.
[2017-11-04] MEDS: BUPIVACAINE 0.25% W/ EPI VIAL 30 ML INJ (14:30)
--- NOTE | 2017-11-04 14:51 | P.OP_ITS ---
Operative Date/Time/Diagnoses Date of procedure: 11/04/17 Time of procedure: 13:47 Pre-op diagnosis: Right femoral neck fracture Post-op diagnosis: same Procedure & Clinicians Procedure: Right hip close reduction and internal fixation with cannulated screws Same procedure as scheduled: Yes Indications: Ms. Laguerre is a 77-year-old female who had a fall from standing. She was seen in her family practice doctors office after ambulating since the fall. X-ray done in the family doctor's office shows a nondisplaced subcapital femoral neck fracture. Patient was sent to the emergency room. CT scan was ordered and shows and confirm a subcapital femoral neck fracture on the right side. After discussing risks benefits of treatment options patient elected proceed with surgical treatment. Surgeon: Vilma Thompson Click Yes if Unassisted: Yes Anesthesia Type: General Operative Notes Closure Type: primary Specimen(s): none sent Implants & Drains: Synthes 7.3 mm cannulated screws x 3 Applied: catheter Estimated Blood Loss (mL): 50 Blood products transfused: none Procedure in detail: Patient was seen in the preoperative area. Risks and benefits of the surgery was discussed with the patient. Informed consent was obtained from the patient and placed in the chart. Surgical site was marked. Patient was taken to the operative room. General anesthesia was administered. Prophylactic antibiotic was given to the patient less than 30 min before the incision was made. Patient was placed into a supine position on the fracture table. Patient's hip was then prepped and draped in the sterile fashion. Time- out was performed at this time. Using the fracture table, a closed reduction maneuver was performed to the right femoral neck fracture. This was done by distracting internally rotating and adducting the right hip. After the fracture reduction was completed and confirmed with AP and lateral C-arm imaging, Patient's hip was then prepped and draped in the sterile fashion. A 2 in incision just proximal to the greater trochanter was made on the lateral aspect of the patient's hip. Guidewire for the 7.3 mm cannulate screws was inserted through the incision onto the greater trochanter. The guidewire was driven into the femoral head through the femoral neck using power drill and confirmed with AP and lateral C-arm imaging. Two additional guidewires was driven through the lateral cortex of the femur into the femoral head and confirmed with AP and lateral C-arm imaging. Total 3 guidewires was placed. Depth gauge was used to measure the length of the cannulated screws. Two 80 mm screws and one 85 mm screw was placed after drilling the lateral cortex with a cannulated drill. The screws were placed into the proximal femur by hand. All 3 screws had excellent purchase. After all the hardware was placed, AP and lateral C-arm imaging was used to confirm placement of the hardware and reduction of the fracture. Good placement of the hardware and good reduction of the fracture was confirmed. The wound was then irrigated with sterile normal saline. The deep fascia was closed with 1-0 Vicryl, subcutaneous tissue was closed with 2-0 Vicryl and skin was closed with skin steven. Sterile dressing was applied the patient's skin and patient was woken up from anesthesia and transferred to recovery room stable condition. Complications: none Condition: stable Disposition: Acute Care Plan for aftercare: admit to inpatient hospital
[2017-11-04] MEDS: HYDROMORPHONE 2 MG INJ 0.25 MG IV ×4 (15:20→15:35)
--- NOTE | 2017-11-04 16:06 | PC.NURSE ---
Addendum entered by Yesica Sands R.N. 11/04/17 22:45: Spoke to Dr. Dash at [phone] regarding discontinued medications. stated to administer eye drops tonight and to hold the other medications until the AM. Medications that are listed as discontinued, but the pt requests to continue are: simvastatin, spironolactone, zonisamide, claritin, cymbalta, and corvedilol. Original Note: Addendum entered by Yesica Sands R.N. 11/04/17 21:00: Patient titrated to 2L NS, 95%. Reports tolerating pain of 4/10 and plans to ask for pain meds before bed time. Some of patient's medications, both evening and morning, are currently discontinued in JUN. Plan on reviewing records and calling health care team for rationale. Original Note: Addendum entered by Yesica Sands R.N. 11/04/17 17:23: Arrived to floor with 88% O2 RA, RT evaluated pt and placed on 3L with pt at 91%. NS started at 100ml/hr. Patient reports tolerating pain stilla t 3/10. Original Note: Patient arrived from PACU at 1600. 3 out of 10 pain reported, but pt able to tolerate at this time. Oriented to room. Denies n/v. Dressing to right hip cdi.
[2017-11-04] MEDS: SODIUM CHLORIDE 0.9% 1,000 ML 100 ML IV (17:08)
[2017-11-04] MEDS: PANTOPRAZOLE 20 MG TABLET PO (20:56)
[2017-11-04] MEDS: buPROPion SR 150 MG TAB PO (20:56)
[2017-11-05] VITALS: BP 149/96; PULSE 96; RESP 18; TEMP 36.1; O2SAT 98
[2017-11-05] MEDS: SODIUM CHLORIDE 0.9% 1,000 ML 100 ML IV (04:43)
[2017-11-05 05:11] VITALS: BP 147/97; PULSE 80; RESP 18; TEMP 36.1; O2SAT 96
[2017-11-05 06:53] VITALS: O2SAT 96
--- NOTE | 2017-11-05 08:02 | PM.PNPO.1 ---
Subjective Date Patient Seen: 11/05/17 Time Patient Seen: 08:02 Interval history: The patient is hospital day 3, postop day 1 status post ORIF right hip with percutaneous pinning for right femoral neck fracture by Dr. Thompson. Patient in bed. No complaints of pain. Plan is for the patient to the DC to SNF when medically stable by the hospital service for further therapy and rehab. Exam Vital Signs (past 8 hours): - 11/05/17 05:11 11/05/17 06:53 Temperature 97.0 F L Pulse Rate 80 Respiratory Rate 18 Blood Pressure 147/97 H Pulse Oximetry 96 96 Fraction of Inspired Oxygen 28 Oxygen Delivery Method Room Air Oxygen Flow Rate 2 Narrative Exam Narrative: Patient in bed. Nasal O2. Appears comfortable. Alert and orient x3. Right hip dressing clean dry intact. Moderate swelling right thigh. Bilateral calves soft and nontender. Neurovascular status intact. Able to actively dorsiflex and plantar flex right ankle. Objective Labs Result Diagrams: 11/04/17 08:25 11/04/17 08:25 Labs: Laboratory Results - last 24 hr 11/04/17 11/04/17 11/04/17 08:25 08:25 08:25 WBC 10.0 RBC 3.84 L Hgb 12.2 Hct 36.2 MCV 94.2 MCH 31.8 MCHC 33.8 RDW 14.0 Plt Count 314 Neut % (Auto) 68.6 Lymph % (Auto) 17.1 L Childress % (Auto) 9.7 Eos % (Auto) 4.2 H Baso % (Auto) 0.4 Neut # (Auto) 6800 H PT 11.4 INR 1.1 Sodium 136 L Potassium 4.2 Chloride 104 Carbon Dioxide 26 BUN 11 Creatinine 0.90 Estimated GFR > 60.0 BUN/Creatinine Ratio 12.2 Glucose 117 H Calcium 8.8 Assessment & Plan Post-op Postoperative Procedures Operation Date: 11/04/17 13:45 Actual Procedures Side Surgeon p ORIF Hip/Cannulated Screws Right Vilma Thompson MD Postop day 1 status post ORIF with percutaneous screws for a right hip fracture. Patient to be partial weight-bearing with walker. Ambulate with physical therapy. Aspirin 81 mg b.i.d. times 14 days for DVT prophylaxis. DC to his long-term facility when medically stable. Follow up with Ortho in 10-14 days postop. Time Spent With Patient less than 15 minutes Quality VTE Deep Vein Thrombosis/Pulmonary Embolism Present on Admission: No
[2017-11-05] MEDS: CEFAZOLIN 2 GM/100 ML FROZ.PIGGY IV (08:10)
--- NOTE | 2017-11-05 08:12 | PM.PN.1 ---
Subjective Date Patient Seen: 11/05/17 Time Patient Seen: 08:12 Interval history: Hospital day 3 Postop day 1 status post open reduction internal fixation right hip with percutaneous pinning for right femoral neck fracture for this pleasant 77-year-old lady sitting up in bed in no acute distress. She reports her pain as being 2-3 a rest. Exam Vital Signs (past 8 hours): - 11/05/17 05:11 11/05/17 06:53 Temperature 97.0 F L Pulse Rate 80 Respiratory Rate 18 Blood Pressure 147/97 H Pulse Oximetry 96 96 Fraction of Inspired Oxygen 28 Oxygen Delivery Method Room Air Oxygen Flow Rate 2 Const General: cooperative, healthy appearing, comfortable, well developed and well groomed Nutritional Appearance: average body habitus and well nourished Orientation: alert, awake and oriented x3 HENMT Head: normal to inspection, normocephalic and atraumatic Eyes General: appearance normal, both eyes and all related structures Pupils: PERRL Neck Neck: normal visual inspection and trachea midline Other: No JVD or lymphadenopathy Chest Chest: normal inspection of the chest Resp Effort & Inspection: normal respiratory effort and able to speak in complete sentences Auscultation: crackles bilaterally in the lower lung pichardo Cardio Rate: regular rate Rhythm: regular rhythm Heart Sounds: S1 normal and S2 normal GI Inspection: normal to inspection Palpation: soft Auscultation: normal bowel sounds Other: Urinary catheter drain in place. Skin General: no rashes or lesions noted, turgor normal, dry skin and warm Other: Right hip dressing dry and intact. Moderate swelling in right, but is soft. Bilateral calves soft and nontender. Neurovascular status intact. Neuro General: alert, awake, oriented x3 and moves all extremities Cognition: normal cognition Speech: speech normal Motor: muscle tone normal throughout Sensory Exam: no sensory deficits noted Extrem General: normal to inspection, capillary refill normal, no pedal edema and no calf tenderness Psych Appearance: grossly normal Mental Status: mental status grossly normal Speech and Movement: speech and movement normal Mood: congruent mood Affect: normal affect Attitude: cooperative Thought Process: normal Thought Content: normal Judgment: judgment good Objective Labs Result Diagrams: 11/04/17 08:25 11/04/17 08:25 Labs: Laboratory Results - last 24 hr 11/04/17 11/04/17 11/04/17 08:25 08:25 08:25 WBC 10.0 RBC 3.84 L Hgb 12.2 Hct 36.2 MCV 94.2 MCH 31.8 MCHC 33.8 RDW 14.0 Plt Count 314 Neut % (Auto) 68.6 Lymph % (Auto) 17.1 L Bacon % (Auto) 9.7 Eos % (Auto) 4.2 H Baso % (Auto) 0.4 Neut # (Auto) 6800 H PT 11.4 INR 1.1 Sodium 136 L Potassium 4.2 Chloride 104 Carbon Dioxide 26 BUN 11 Creatinine 0.90 Estimated GFR > 60.0 BUN/Creatinine Ratio 12.2 Glucose 117 H Calcium 8.8 Assessment & Plan Plan: Assessment/Plan Narrative: 1. Hip fracture the management as per Orthopedics. This is a pathologic fracture with underlying osteoporosis. This is postop day 1, and she is doing remarkably well. Minimal pain with pivoting to the bedside commode. She will work with PT and OT today for rehab. 2. History of chronic kidney disease with history of right nephrectomy for renal cell carcinoma creatinine baseline about 1.5 this has been stable. Her creatinine this morning is 0.9. We would recommend she not take anti-inflammatories 3. Hyperlipidemia on simvastatin plan to continue. 4. Chronic diastolic dysfunction stable 5. Hyperglycemia: probably mild diabetes previously undiagnosed plan to watch her glucose carefully while she is here. Her nonfasting glucose this morning is 117. 6. Code status she desires to be full code this was discussed with patient. 7. Disposition admission to inpatient status. Will work with physical therapy and probably discharge tomorrow a.m.. 8. Hypertension: plan to continue Coreg for management of her hypertension. Quality VTE Deep Vein Thrombosis/Pulmonary Embolism Present on Admission: No
[2017-11-05 08:30] VITALS: BP 140/93; PULSE 80; RESP 18; TEMP 36.3; O2SAT 98
--- NOTE | 2017-11-05 09:18 | PT.IIE ---
Current Diagnoses Essential (primary) hypertension (11/02/17) Other osteoporosis with current pathological fracture, right femur, initial encounter for fracture (11/02/17) Fracture of unspecified part of neck of right femur, initial encounter for closed fracture (11/02/17) Surgery Performed Operation Date: 11/04/17 13:45 Actual Procedures p ORIF Hip/Cannulated Screws(Right) - Vilma Thompson MD Medical History (Last Reviewed 11/04/17 @ 11:20 by Vilma Thompson MD) Age-related osteoporosis without current pathological fracture (Acute) Aortic aneurysm of unspecified site, without rupture (Acute) Chronic pain syndrome (Acute) Essential (primary) hypertension (Acute) GERD (gastroesophageal reflux disease) (Acute) Headache (Acute) Heart failure (Acute) Insomnia (Acute) Major depressive disorder, recurrent, moderate (Acute) Mixed hyperlipidemia (Acute) 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 Activities of Daily Living and IADL's independent Prior Functional Level (Other details) Pt reports multiple falls in the last year. At least 2 in the last 6 months - one maneuvering walker in/and out of her car. Social History Household Members none Living Arrangements House Number of Floors (Floors) One Floor Number of Stairs To Enter/Railing? no stairs to enter. Home Equipment Four Wheel Walker Quad Cane Straight Cane Grab Bars In Shower Employment Status Retired Additional Social History Comment Does not have any close neighbors. Son and daughter in law live nearby, but is often out of town traveling. 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 M2 PT-IP Current Condition Start: 11/04/17 17:10 Freq: NEEDED Status: Active Protocol: Document 11/05/17 09:18 MDD (Rec: 11/05/17 11:31 [facility] [id number]) Physical Therapy Current Condition Current Condition Evaluation Date 11/05/17 Treatment Diagnosis s/p R hip ORIF Onset Date 11/02/17 Weight Bearing Status Weight Bearing Status Touch Down Weight Bearing M3 PT-IP Subjective Start: 11/04/17 17:10 Freq: NEEDED Status: Active Protocol: Document 11/05/17 09:18 MDD (Rec: 11/05/17 11:31 [facility] [id number]) Subjective Physical Therapy Visit Type Type Initial Evaluation Visit Start Time 08:40 Visit Stop Time 09:18 Total Visit Minutes 38 Number of ENVIRONMENTAL ENGINEERING PROFESSOR Visits 0 Physical Therapy Visit Comments Patient Comments Agreeable to participate with PT. Reports she is nervous about going home due to fear of suffering additional falls. Therapy Pain Assessment Pain Present Pain Present Denied Pain M4 PT-IP Mobility and Gait Start: 11/04/17 17:10 Freq: NEEDED Status: Active Protocol: Document 11/05/17 09:18 MDD (Rec: 11/05/17 11:31 [facility] [id number]) PT-Bed Mobility Assessment Rolling Type of Rolling Roll to Left Level of Assist Independent Supine to Sit Supine to Sit Standby Assistance Sit to Supine Sit to Supine Standby Assistance Scooting Scooting to Edge of Bed Independent Scooting Up and Down in Bed Independent PT-Transfer Assessment Sit to and From Stand Sit to and from Stand Contact Guard Assistance Equipment Transfer Assistive Device Gait Belt Front Wheeled Walker Transfers Transfer Destination Bed Toilet Transfer Ability Level of Assist Contact Guard Assistance Gait Assessment Gait Gait Assistance Required: Contact Guard Assist Distance (Feet) (feet) 20 Able to Maintain Weight Bearing Status No During Gait Assistive Devices Assistive Device Gait Belt Front Wheeled Walker Orthotic/Prosthetic Devices or Brace: No Comments Gait Comments Difficulty maintaining TTWB. Requires heavy cues to follow precautions. PT-Balance Assessment Sitting Balance and Reactions Static Sitting Balance Ability Normal Dynamic Sitting Balance Ability Normal Standing Balance and Reactions Static Standing Balance Ability Fair Dynamic Standing Balance Ability Fair M5 PT-IP Objective Assessments Start: 11/04/17 17:10 Freq: NEEDED Status: Active Protocol: Document 11/05/17 09:18 MDD (Rec: 11/05/17 11:31 [facility] [id number]) Orientation Orientation/Cognition Level of Alertness Alert Orientation Name Age Birthday Month Date Year Day of Week Place Situation Language Function Ability No Deficits Noted Safety Awareness Understands Safety Issues Memory Description No Deficits Noted Gross Range of Motion Lower Extremity ROM Assessment Within Functional Limits Strength Lower Extremity Strength Assessment Within Functional Limits Sensation Assessment Sensation Gross Sensation WNL M6 PT-IP Treatment Start: 11/04/17 17:10 Freq: NEEDED Status: Active Protocol: Document 11/05/17 09:18 MDD (Rec: 11/05/17 11:31 MDD [id number]) Physical Therapy Treatment Exercises Exercises Ankle Pumps Gluteal Sets Quad Sets Heel Slides Straight Leg Raises Supine Hip Abduction Education Education Provided Precautions Weight Bearing Status Safety M7 PT-IP Assessment and Plan Start: 11/04/17 17:10 Freq: NEEDED Status: Active Protocol: Document 11/05/17 09:18 MDD (Rec: 11/05/17 11:31 MDD [id number]) PT Summary Assessment and Plan Potential Rehabilitation Potential Excellent Status of Condition at Evaluation Stable Summary Impairments Strength Balance Transfers Gait Progress Towards Goals Progressing Toward Goals Assessment Summary Pt demonstrates good LE strength and independent bed mobility. Requires CGA for safety with transfers and gait and heavy cueing for maintaining WB precautions. Goals Bed Mobility Goal Independent Transfer Goal Independent Gait Goal Independent Gait Distance 150 maintaining TTWB Days to Meet Goals 2 Frequency of Treatment Frequency Of Treatment Twice a Day Treatment Plan Physical Therapy Treatment Plan Transfer Training Gait Training Balance Retraining Post Op Education Other Recommendations and Next Treatment Emphasize WB precautions, Focus safety training Recommendations To Nursing Amount of Assist Needed 1 Person Assist Discharge Recommendations PT Discharge Recommendations SNF Rehab Outpatient PT Equipment Needed for Home Before front wheeled walker Discharge
[2017-11-05] MEDS: ASPIRIN EC 81 MG TABLET PO ×2 (10:34→20:45)
[2017-11-05] MEDS: DOCUSATE 100 MG CAPSULE PO (10:35)
[2017-11-05] MEDS: MULTIVITAMIN 1 TABLET 1 TAB PO (10:35)
[2017-11-05] MEDS: CHOLECALCIFEROL (VITAMIN D3) 1,000 UNIT TABLET 1000 UNIT PO (10:35)
[2017-11-05] MEDS: buPROPion SR 150 MG TAB PO ×2 (10:35→20:45)
[2017-11-05] MEDS: SPIRONOLACTONE 25 MG TABLET 12.5 MG PO (10:35)
[2017-11-05] MEDS: PANTOPRAZOLE 20 MG TABLET PO ×2 (10:35→20:45)
[2017-11-05] MEDS: CARVEDILOL 3.125 MG TABLET PO ×2 (10:35→20:45)
[2017-11-05] MEDS: TIMOLOL 0.25% OPHTH 1 DROPS EYE-BOTH (12:15)
--- NOTE | 2017-11-05 12:21 | PC.NURSE ---
Pt resting in bed. Shelley removed. Pt denies pain. Alert and oriented. Pt declines pain meds but agrees to call if pain level changes.
--- NOTE | 2017-11-05 14:43 | PT.IPTN ---
Current Diagnoses Essential (primary) hypertension (11/02/17) Other osteoporosis with current pathological fracture, right femur, initial encounter for fracture (11/02/17) Fracture of unspecified part of neck of right femur, initial encounter for closed fracture (11/02/17) Surgery Performed Operation Date: 11/04/17 13:45 Actual Procedures p ORIF Hip/Cannulated Screws(Right) - Vilma Thompson MD Physical Therapy Treatment Note M2 PT-IP Current Condition Start: 11/04/17 17:10 Freq: NEEDED Status: Active Protocol: Document 11/05/17 09:18 MDD (Rec: 11/05/17 11:31 MDD [id number]) Physical Therapy Current Condition Current Condition Evaluation Date 11/05/17 Treatment Diagnosis s/p R hip ORIF Onset Date 11/02/17 Weight Bearing Status Weight Bearing Status Touch Down Weight Bearing M3 PT-IP Subjective Start: 11/04/17 17:10 Freq: NEEDED Status: Active Protocol: Document 11/05/17 14:43 MDD (Rec: 11/05/17 16:41 MDD [id number]) Subjective Physical Therapy Visit Type Type Treatment Note Visit Start Time 14:20 Visit Stop Time 14:43 Total Visit Minutes 23 Number of PRESS OPERATOR AUTOMATIC Visits 1 Physical Therapy Visit Comments Patient Comments Reports very little pain this afternoon. Said she started feeling it a little while ago, but it was manageable and now it's gone again. Therapy Pain Assessment Pain Present Pain Present Denied Pain M4 PT-IP Mobility and Gait Start: 11/04/17 17:10 Freq: NEEDED Status: Active Protocol: Document 11/05/17 09:18 MDD (Rec: 11/05/17 11:31 MDD [id number]) PT-Bed Mobility Assessment Rolling Type of Rolling Roll to Left Level of Assist Independent Supine to Sit Supine to Sit Standby Assistance Sit to Supine Sit to Supine Standby Assistance Scooting Scooting to Edge of Bed Independent Scooting Up and Down in Bed Independent PT-Transfer Assessment Sit to and From Stand Sit to and from Stand Contact Guard Assistance Equipment Transfer Assistive Device Gait Belt Front Wheeled Walker Transfers Transfer Destination Bed Toilet Transfer Ability Level of Assist Contact Guard Assistance Gait Assessment Gait Gait Assistance Required: Contact Guard Assist Distance (Feet) (feet) 20 Able to Maintain Weight Bearing Status No During Gait Assistive Devices Assistive Device Gait Belt Front Wheeled Walker Orthotic/Prosthetic Devices or Brace: No Comments Gait Comments Difficulty maintaining TTWB. Requires heavy cues to follow precautions. PT-Balance Assessment Sitting Balance and Reactions Static Sitting Balance Ability Normal Dynamic Sitting Balance Ability Normal Standing Balance and Reactions Static Standing Balance Ability Fair Dynamic Standing Balance Ability Fair M5 PT-IP Objective Assessments Start: 11/04/17 17:10 Freq: NEEDED Status: Active Protocol: Document 11/05/17 09:18 MDD (Rec: 11/05/17 11:31 MDD [id number]) Orientation Orientation/Cognition Level of Alertness Alert Orientation Name Age Birthday Month Date Year Day of Week Place Situation Language Function Ability No Deficits Noted Safety Awareness Understands Safety Issues Memory Description No Deficits Noted Gross Range of Motion Lower Extremity ROM Assessment Within Functional Limits Strength Lower Extremity Strength Assessment Within Functional Limits Sensation Assessment Sensation Gross Sensation WNL M6 PT-IP Treatment Start: 11/04/17 17:10 Freq: NEEDED Status: Active Protocol: Document 11/05/17 14:43 MDD (Rec: 11/05/17 16:41 MDD [id number]) Physical Therapy Treatment Education Education Provided Precautions Weight Bearing Status Safety Other Treatments Other Treatment Performed Continued practice with ambulation x 30 [address] with CGA. Improved ability to maintain toe touch WB, but intermittently needs cues. Pt ambulated additional 10 feet <> toilet. Performing transfers with SBA. M7 PT-IP Assessment and Plan Start: 11/04/17 17:10 Freq: NEEDED Status: Active Protocol: Document 11/05/17 14:43 MDD (Rec: 11/05/17 16:41 MDD [id number]) PT Summary Assessment and Plan Potential Rehabilitation Potential Excellent Status of Condition at Evaluation Stable Summary Impairments Strength Balance Bed Mobility Transfers Gait Activity Tolerance Progress Towards Goals Progressing Toward Goals Assessment Summary Pt demonstrating improved mobility and greater gait distances. Continues to present high fall risk due to history of falls and no help in the home. Goals Bed Mobility Goal Independent Transfer Goal Independent Gait Goal Independent Gait Distance 150 maintaining TTWB Days to Meet Goals 2 Frequency of Treatment Frequency Of Treatment Twice a Day Treatment Plan Physical Therapy Treatment Plan Transfer Training Gait Training Balance Retraining Post Op Education Other Recommendations and Next Treatment Emphasize WB precautions, Focus safety training Recommendations To Nursing Amount of Assist Needed 1 Person Assist Discharge Recommendations PT Discharge Recommendations SNF Rehab Outpatient PT Equipment Needed for Home Before front wheeled walker Discharge
--- NOTE | 2017-11-05 15:57 | OT.IP.EVAL ---
Current Diagnoses Essential (primary) hypertension (11/02/17) Other osteoporosis with current pathological fracture, right femur, initial encounter for fracture (11/02/17) Fracture of unspecified part of neck of right femur, initial encounter for closed fracture (11/02/17) Surgery Performed Operation Date: 11/04/17 13:45 Actual Procedures p ORIF Hip/Cannulated Screws(Right) - Vilma Thompson MD Past Medical History (Last Reviewed 11/04/17 @ 11:20 by Vilma Thompson MD) Age-related osteoporosis without current pathological fracture (Acute) Aortic aneurysm of unspecified site, without rupture (Acute) Chronic pain syndrome (Acute) Essential (primary) hypertension (Acute) GERD (gastroesophageal reflux disease) (Acute) Headache (Acute) Heart failure (Acute) Insomnia (Acute) Major depressive disorder, recurrent, moderate (Acute) Mixed hyperlipidemia (Acute) 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 Activities of Daily Living and IADL's independent Prior Functional Level (Other details) Pt reports multiple falls in the last year. At least 2 in the last 6 months - one maneuvering walker in/and out of her car. Social History Household Members none Living Arrangements House Number of Floors (Floors) One Floor Number of Stairs To Enter/Railing? no stairs to enter. Home Equipment Four Wheel Walker Quad Cane Straight Cane Grab Bars In Shower Employment Status Retired Additional Social History Comment Does not have any close neighbors. Son and daughter in law live nearby, but is often out of town traveling. Has an emergency call button ( only works inside her home). Database Tester comes to clean once a week. M1 PT/OT-IP Prior Functional Status Start: 11/05/17 15:32 Freq: NEEDED Status: Active Protocol: Document 11/05/17 15:35 [facility] (Rec: 07/20/18 15:55 [facility] [id number]) Medical Review Prior Functional Status Medical History Reviewed Yes Communication nml Mobility and Gait mod independent with 4WW. Activities of Daily Living and IADL's independent Prior Functional Level (Other details) Pt reports multiple falls in the last year. At least 2 in the last 6 months - one maneuvering walker in/and out of her car. Social History Household Members none Living Arrangements House Number of Floors (Floors) One Floor Number of Stairs To Enter/Railing? no stairs to enter. Home Equipment Four Wheel Walker Quad Cane Straight Cane Grab Bars In Shower Employment Status Retired Additional Social History Comment Does not have any close neighbors. Son and daughter in law live nearby, but is often out of town traveling. Has an emergency call button ( only works inside her home). Database Tester comes to clean once a week. M2 OT-IP Current Condition Start: 11/05/17 15:32 Freq: Status: Active Protocol: Document 11/05/17 15:35 [facility] (Rec: 11/05/17 15:55 [facility] [id number]) Occupational Therapy Current Condition Current Condition Evaluation Date 11/05/17 Treatment Diagnosis Fracture of unspecified part of the neck Right femur Diagnosis Onset Date 11/02/17 Weight Bearing Status Weight Bearing Status Touch Down Weight Bearing M3 OT- IP Subjective and Pain Start: 11/05/17 15:32 Freq: Status: Active Protocol: Document 11/05/17 15:35 [facility] (Rec: 11/05/17 15:55 [facility] [id number]) OT- Subjective Occupational Therapy Visit Type Type Initial Evaluation Visit Start Time 15:05 Visit Stop Time 15:30 Total Visit Minutes 25 Occupational Therapy Visit Comments Patient/Caregiver Goals Pt wanting to go to rehab prior to going home as lives alone. OT Pain Assessment Pain When Pain Assessed At Rest Pain Present Pain Present Denied Pain M4 OT- IP ADL's Start: 11/05/17 15:32 Freq: Status: Active Protocol: Document 11/05/17 15:35 [facility] (Rec: 11/05/17 15:55 [facility] [id number]) OT ADL-Dressing General Eval Lower Body Dressing Ability Maximum Assistance Areas Needing Assistance Socks Comments OT Dressing Comments Pt unable to reach R foot to do LB dressing needs and will benefit from use of AED. M5 OT- IP IADL's Start: 11/05/17 15:32 Freq: Status: Active Protocol: Document 11/05/17 15:35 [facility] (Rec: 11/05/17 15:55 [facility] [id number]) OT-Instrumental Activities of Daily Living Scullion Chief Scullion Chief Comments At this time pt will not be able to care for her cat, do laundry, take out the garbage. M6 OT- IP Functional Cognition Start: 11/05/17 15:32 Freq: Status: Active Protocol: Document 11/05/17 15:35 [facility] (Rec: 11/05/17 15:55 [facility] [id number]) Cognitive Factors Limiting Selfcare Function Cognitive Ability Level of Alertness Alert Patient Orientation Name Place Situation Attention Span Ability Capable of Focused Attention Capable of Sustained Attention Ability to Follow Commands Able to Follow Multi-Step Commands Memory Description No Deficits Noted OT- Vision and Hearing OT- Hearing Assessment OT- Hearing Assessment WFL M7 OT- IP Mobility and Balance Start: 11/05/17 15:32 Freq: Status: Active Protocol: Document 11/05/17 15:35 [facility] (Rec: 11/05/17 15:55 [facility] [email or web address]) OT- Bed Mobility Assessment Sit to Supine Sit to Supine Assist Standby Assistance OT-Transfer Assessment Sit to and From Stand Sit to and from Stand Contact Guard Assistance Transfers Transfer Ability Contact Guard Assistance Technique Transfer Destination Bed Transfer Technique Stand Step Pivot Devices Transfer Assistive Devices Gait Belt Front Wheeled Walker Comments Mobility Comments Pt will need assist to stand from lower surfaces. Pt able to maintain TTWB while taking steps from recliner to bed. Pt would benefit from a wheelchair from longer distances. OT- Balance Assessment Sitting Balance and Reactions Static Sitting Balance Ability Normal Dynamic Sitting Balance Ability Normal Standing Balance and Reactions Static Standing Balance Ability Fair M8 OT- IP Objective Assessments Start: 11/05/17 15:32 Freq: Status: Active Protocol: Document 11/05/17 15:35 [facility] (Rec: 11/05/17 15:55 [facility] [email or web address]) OT Gross Range of Motion Upper Extremity Range of Motion Assessment Within Functional Limits OT Strength Upper Extremity Strength Assessment Within Functional Limits OT-Muscle Tone Assessment Muscle Tone WNL Yes M9 OT- IP Assessment and Plan Start: 11/05/17 15:32 Freq: Status: Active Protocol: Document 11/05/17 15:35 [facility] (Rec: 11/05/17 15:55 [facility] [email or web address]) OT Summary Assessment and Plan Potential Rehabilitation Potential Good Analytic Complexity at Evaluation Low Summary OT Impairments Balance Functional Mobility Grooming Dressing Toileting Bathing Toilet Transfers Shower Transfers Progress Towards Goals Progressing Toward Goals Assessment Summary Pt main barrier activity tolerance due to TTWB status and needing assist for ADl's, IADL needs and would benefit from skilled rehab prior to going home. Goals Grooming Goal Standby Assistance Dressing Goal Standby Assistance Toileting Goal Standby Assistance Bathing Goal Minimal Assistance Toilet Transfer Goal Standby Assistance Shower Transfer Goal Minimal Assistance Patient/Caregiver Education Goal Demonstrate Energy Conservation and Pacing Days to Meet Goals 5 Frequency of Treatment Frequency Of Treatment Once a Day Treatment Plan OT Treatment Plan ADL Training Functional Mobility Patient/Family Education Discharge Planning Other Treatment Recommendations and Next Practice AED for dressing, Treatment Focus shower if appropriate. Discharge Recommendations OT Discharge Recommendations SNF Rehab Home Equipment Needs stool for shower,grab bars
[2017-11-05 16:01] VITALS: BP 149/86; PULSE 83; RESP 19; TEMP 36.4; O2SAT 96
[2017-11-05] MEDS: LATANOPROST 0.005% OPHTH 2.5 ML 1 DROPS EYE-BOTH (20:43)
[2017-11-05] MEDS: SODIUM CHLORIDE 0.9% FLUSH 10 ML IV (20:45)
[2017-11-05 23:43] VITALS: BP 155/94; PULSE 81; RESP 16; TEMP 36.7; O2SAT 95
[2017-11-06 05:33] LABS: Add Manual Diff / Slide Review NO; Basophils Percent Auto 0.8 % (0-2); Eosinophils Percent Auto 2.6 % (2-4); Hematocrit 32.9 % (36-46); Hemoglobin 10.9 g/dL (12.0-16.0); Lymphocytes Percent Auto 30.2 % (25-40); Mean Corpuscular HGB Conc 33.2 % (30-36); Mean Corpuscular Hemoglobin 31.3 PG (26-34); Mean Corpuscular Volume 94.1 fL (80-100); Monocytes Percent Auto 7.5 % (3-14); Neutrophils Absolute Auto 6900 /uL (3000-5900); Neutrophils Percent Auto 58.9 % (50-75); Platelet Count 293 X10^3/uL (150-400); Red Blood Cell Count 3.49 X10^6/uL (4.0-5.2); Red Cell Distribution Width 14.3 % (11.6-14.8); White Blood Cell Count 11.7 X10^3/uL (4.5-11.0)
[2017-11-06 05:40] LABS: Chloride 108 mmol/L (98-107); HEMOLYSIS < 15 (0-50)
[2017-11-06 05:42] LABS: Blood Urea Nitrogen 17 mg/dL (7-17); Calcium 8.8 mg/dL (8.4-10.2); Carbon Dioxide 25 mmol/L (22-32); Estimated Glomerular Filt Rate 53.9 mL/min (>60); Glucose 95 mg/dL (80-110); Sodium 140 mmol/L (137-145)
--- NOTE | 2017-11-06 08:34 | PM.PNPO.1 ---
Subjective Date Patient Seen: 11/06/17 Time Patient Seen: 08:34 Interval history: Postop day 2 status post ORIF right hip with percutaneous pinning for right femoral neck fracture by Dr. Thompson. No complaints of pain. Plan is for the patient to the [facility] to [facility] when medically stable by the hospital service for further therapy and rehab. Exam Vital Signs (past 8 hours): Fraction of Inspired Oxygen 28 Oxygen Delivery Method Room Air Oxygen Flow Rate 2 Narrative Exam Narrative: Patient lying in bed in no acute distress. Dressing is peeling on upper corner. This will need to be changed prior to discharge. Dressing is dry. She is able to actively dorsiflex and plantar flex. Calves are soft, compressible, nontender bilaterally. Objective Labs Result Diagrams: 11/06/17 05:15 11/06/17 05:15 Labs: Laboratory Results - last 24 hr 11/06/17 11/06/17 05:15 05:15 WBC 11.7 H RBC 3.49 L Hgb 10.9 L Hct 32.9 L MCV 94.1 MCH 31.3 MCHC 33.2 RDW 14.3 Plt Count 293 Neut % (Auto) 58.9 Lymph % (Auto) 30.2 Person % (Auto) 7.5 Eos % (Auto) 2.6 Baso % (Auto) 0.8 Neut # (Auto) 6900 H Sodium 140 Potassium 4.0 Chloride 108 H Carbon Dioxide 25 BUN 17 Creatinine 1.00 Estimated GFR 53.9 L BUN/Creatinine Ratio 17.0 Glucose 95 Calcium 8.8 Assessment & Plan Post-op Postoperative Procedures Operation Date: 11/04/17 13:45 Actual Procedures Side Surgeon p ORIF Hip/Cannulated Screws Right Vilma Thompson MD POD 2 status post ORIF right hip with percutaneous pinning for right femoral neck fracture by Dr. Thompson. Change dressing or secure with tape prior to discharge. Plan is for the patient to the [place] to [facility] when medically stable by the hospital service for further therapy and rehab, likely today. Time Spent With Patient less than 15 minutes Quality VTE Deep Vein Thrombosis/Pulmonary Embolism Present on Admission: No
[2017-11-06] MEDS: MULTIVITAMIN 1 TABLET 1 TAB PO (08:55)
[2017-11-06] MEDS: TIMOLOL 0.25% OPHTH 1 DROPS EYE-BOTH (08:55)
[2017-11-06] MEDS: CHOLECALCIFEROL (VITAMIN D3) 1,000 UNIT TABLET 1000 UNIT PO (08:55)
[2017-11-06] MEDS: buPROPion SR 150 MG TAB PO (08:56)
[2017-11-06] MEDS: ASPIRIN EC 81 MG TABLET PO (08:56)
[2017-11-06] MEDS: PANTOPRAZOLE 20 MG TABLET PO (08:56)
[2017-11-06] MEDS: SPIRONOLACTONE 25 MG TABLET 12.5 MG PO (08:56)
[2017-11-06] MEDS: CARVEDILOL 3.125 MG TABLET PO (08:57)
[2017-11-06 09:15] VITALS: BP 174/99; PULSE 76; RESP 18; TEMP 36.8; O2SAT 97
--- NOTE | 2017-11-06 09:53 | P.DS_ITS ---
History of Present Illness Chief complaint: HIP FX Narrative: 77-year-old female presents after falling at home and injuring her right hip. Seen in the ER with a diagnosis of mildly displaced subcapital neck fracture on the right. She has been in relatively good health recently no specific medical complaints today. Discharge Providers Date of admission: 11/02/17 19:39 Primary care physician: Maryanne Gaviria PA-C Consults: 11/04/17 16:03 Consult to Occupational Therapy Evaluate & Treat Comment: Physician Instructions: Evaluate and treat Consult to Physical Therapy Evaluate & Treat Comment: Physician Instructions: Evaluate and Treat Discharge provider: Joel Graff MD Summary Discharge Diagnosis: One. Hip fracture status post closed reduction and internal fixation with cannulated screws 2. History of chronic kidney disease with history of right nephrectomy baseline creatinine 1.5 3. Hyperlipidemia 4. Chronic diastolic dysfunction 5. Impaired glucose tolerance 6. Hypertension Hospital Course: Patient admitted with the hip fracture underwent surgical repair as per the Orthopedics. She has been healing well she has been recovering and has been up with physical physical therapy. Her medical problems have remained stable during this hospitalization. She does have some mild chronic kidney disease from previous nephrectomy baseline creatinine probably about 1.3-1.5. Because of this we have stopped her anti- inflammatories the meloxicam that she was taking. Also blood sugar was mildly elevated and probably has some mild impaired glucose tolerance. Otherwise medical problems have been stable while she has been here the patient will follow up with her orthopedic outpatient visit and also when she is discharged from the dog a will follow up with primary care who is Rose at [facility] Status at Discharge Functional status at discharge: uses cane/walker Overall status at discharge: patient is not back to baseline Time Spent with Patient Greater than 30 minutes Exam Vital Signs (past 8 hours): Fraction of Inspired Oxygen 28 Oxygen Delivery Method Room Air Oxygen Flow Rate 2 Objective Labs Result Diagrams: 11/06/17 05:15 11/06/17 05:15 Labs: Laboratory Results - last 24 hr 11/06/17 11/06/17 05:15 05:15 WBC 11.7 H RBC 3.49 L Hgb 10.9 L Hct 32.9 L MCV 94.1 MCH 31.3 MCHC 33.2 RDW 14.3 Plt Count 293 Neut % (Auto) 58.9 Lymph % (Auto) 30.2 [place]ake % (Auto) 7.5 Eos % (Auto) 2.6 Baso % (Auto) 0.8 Neut # (Auto) 6900 H Sodium 140 Potassium 4.0 Chloride 108 H Carbon Dioxide 25 BUN 17 Creatinine 1.00 Estimated GFR 53.9 L BUN/Creatinine Ratio 17.0 Glucose 95 Calcium 8.8 Discharge Plan Discharge Plan Patient Disposition: SNF Transfer to: [facility] Under care of provider: Dr. Ng Transportation: Facility vehicle Consult as needed: Dental, Hearing, Mental health, Podiatry and Vision Discharge comment: to snf I certify the postop hospital usp care is medically necessary on a continuing basis for any conditions for which he/ she received care during this hospitalization.: Yes The receiving facility has agreed to accept transfer and provide medical treatment.: Yes Discharge Health Status Brief summary of current health status: see notes Multidrug resistant organism: No MDRO MDRO Verified by culture: No Precautions: [place] Provider Discharge Instructions Diet: Diet as Tolerated Liquid consistency: Normal/Thin Food texture: Regular Activity: Patient to be partial weight-bearing with walker. Special Rehabilitation Services Reason for rehabilitation: Post-operative therapy Rehab type: Physical therapy Discharge Data Primary Care Provider: Maryanne Gaviria Attending Provider: Joel Graff Admit Date/Time: 11/02/17 19:39 Quality VTE Deep Vein Thrombosis/Pulmonary Embolism Present on Admission: No
--- NOTE | 2017-11-06 10:31 | PT.IPTN ---
Current Diagnoses Essential (primary) hypertension (11/02/17) Other osteoporosis with current pathological fracture, right femur, initial encounter for fracture (11/02/17) Fracture of unspecified part of neck of right femur, initial encounter for closed fracture (11/02/17) Surgery Performed Operation Date: 11/04/17 13:45 Actual Procedures p ORIF Hip/Cannulated Screws(Right) - Vilma Thompson MD Physical Therapy Treatment Note M2 PT-IP Current Condition Start: 11/04/17 17:10 Freq: NEEDED Status: Active Protocol: Document 11/05/17 09:18 MDD (Rec: 11/05/17 11:31 MDD [id number]) Physical Therapy Current Condition Current Condition Evaluation Date 11/05/17 Treatment Diagnosis s/p R hip ORIF Onset Date 11/02/17 Weight Bearing Status Weight Bearing Status Touch Down Weight Bearing M3 PT-IP Subjective Start: 11/04/17 17:10 Freq: NEEDED Status: Active Protocol: Document 11/06/17 10:31 GGD (Rec: 11/06/17 10:31 GGD [id number]) Subjective Physical Therapy Visit Type Type Patient Refusal Notes Pt states she is tired after her shower and would like to rest. M4 PT-IP Mobility and Gait Start: 11/04/17 17:10 Freq: NEEDED Status: Active Protocol: Document 11/05/17 09:18 MDD (Rec: 11/05/17 11:31 MDD [id number]) PT-Bed Mobility Assessment Rolling Type of Rolling Roll to Left Level of Assist Independent Supine to Sit Supine to Sit Standby Assistance Sit to Supine Sit to Supine Standby Assistance Scooting Scooting to Edge of Bed Independent Scooting Up and Down in Bed Independent PT-Transfer Assessment Sit to and From Stand Sit to and from Stand Contact Guard Assistance Equipment Transfer Assistive Device Gait Belt Front Wheeled Walker Transfers Transfer Destination Bed Toilet Transfer Ability Level of Assist Contact Guard Assistance Gait Assessment Gait Gait Assistance Required: Contact Guard Assist Distance (Feet) (feet) 20 Able to Maintain Weight Bearing Status No During Gait Assistive Devices Assistive Device Gait Belt Front Wheeled Walker Orthotic/Prosthetic Devices or Brace: No Comments Gait Comments Difficulty maintaining TTWB. Requires heavy cues to follow precautions. Frequency Of Treatment Twice a Day Treatment Plan Physical Therapy Treatment Plan Transfer Training Gait Training Balance Retraining Post Op Education Other Recommendations and Next Treatment Emphasize WB precautions, Focus safety training Recommendations To Nursing Amount of Assist Needed 1 Person Assist Discharge Recommendations PT Discharge Recommendations SNF Rehab Outpatient PT Equipment Needed for Home Before front wheeled walker Discharge
--- NOTE | 2017-11-06 10:40 | CM.DPC ---
DCP: continued: Case received. Pt now ok'd for d/c to [facility] for rehab/recovery. Finalized orders with Dr. Graff. PASRR completed. Checked in with pt and YANA Pérez and called Evelyn/[facility]. All is now set up for w/c transport at 1130 today. Pt has already spoken with her son today re the d/c and confirms she will call him re the time. Orders and PASRR are faxed and placed to [facility]. Pt states she feels ready for the d/c to [facility] today.
[2017-11-06] MEDS: OXYCODONE IR 5 MG TABLET PO (10:54)
--- NOTE | 2017-11-06 13:00 | PC.NURSE ---
Report called to Ashley at [facility], all questions answered to satisfaction. patient left w/ staff from [facility] by at 1135.
== END 2017-11-06 11:35 | DRG 481 ==
LOC: ED 19:20 → AC 19:39
PROVIDERS: Nurse Practitioner Acute Care; Orthopaedic Surgery Orthopaedic Surgery of the Spine; Physician Assistant; Admitting Provider Internal Medicine; Emergency Provider Internal Medicine; PCP Physician Assistant; Referring Provider Physician Assistant; Visit Provider Internal Medicine
PROC: 0QH604Z Insertion of Internal Fixation Device into Right Upper Femur, Open Approach (ICD-10-PCS; principal; 2017-11-04 13:45)
DX: M80.851A Other osteoporosis with current pathological fracture, right femur, initial encounter for fracture (principal); I50.32 Chronic diastolic (congestive) heart failure; W10.1XXA Fall (on)(from) sidewalk curb, initial encounter; Y92.511 Restaurant or cafe as the place of occurrence of the external cause; N18.9 Chronic kidney disease, unspecified; G89.4 Chronic pain syndrome; K21.9 Gastro-esophageal reflux disease without esophagitis; F32.9 Major depressive disorder, single episode, unspecified; G47.30 Sleep apnea, unspecified; E55.9 Vitamin D deficiency, unspecified; E78.5 Hyperlipidemia, unspecified; Z85.528 Personal history of other malignant neoplasm of kidney; R73.02 Impaired glucose tolerance (oral)
CPT/HCPCS: 36415; 36591; 51701; 73502; 73700; 80048; 85025; 85610; 85730; 93005; 94760; 94762; 96374; 97110; 97116; 97161; 97165; 99283; 99285; J0690; J1100; J1170; J2270; J2405; J2704; J3010

== ENCOUNTER 2018-01-11 17:15 | Inpatient (IN) | payer MEDICARE, SELFPAY ==
[2017-11-02 21:28] VITALS: BMI 26.9
[2018-01-11 17:24] VITALS: BP 167/94; PULSE 85; RESP 20; TEMP 36.4; O2SAT 98; BMI 24.7
--- NOTE | 2018-01-11 17:26 | ED.FALL ---
HPI - Fall <Taty Leung PA-C - Last Filed: 01/11/18 21:43> General Chief Complaint: Fall Stated Complaint: GLF Time Seen by Provider: 01/11/18 17:26 Source: patient Mode of arrival: EMS Limitations: no limitations History of Present Illness HPI Narrative: This 77-year-old female is brought in by EMS due to ground level fall. She states that she fell mainly onto her left hip and rib area (states she purposefully tried to avoid the right side due to recent hip fracture). She states that she over did it with her walking today, played pool and went to the grocery store and felt like her leg was sore and weak. She states that she had to rest at the grocery store due to this. After she got home, she was bringing groceries with her walker and felt like her leg gave out and fell backwards onto the cement. She states that she hit her hip and left side 1st, states that she bumped the back of her head slightly. Does not think she hit her neck at all. She states that she has very mild headache, no nausea or vision change. She states that she has mild pain just lying down, but increased pain with deep breath, cough, or moving her trunk. She does not feel short of breath. She states that she any chest pain or dizziness leading up to the fall, but states when she was scooting and crawling to get back in the house her chest hurt somewhat, no pain now. She denies any other complaints on systems review. States she has been doing okay with her recent right hip fracture and was supposed to start outpatient PT tomorrow Related Data Home Medications Medication Instructions Recorded Confirmed cholecalciferol (vitamin D3) 1 tab PO QDAY #0 05/29/11 01/11/18 [Vitamin D3] melatonin 10 mg PO HSP PRN #0 05/29/11 01/11/18 simvastatin 20 mg PO HS #0 05/29/11 01/11/18 spironolactone 12.5 mg PO QDAY #0 05/29/11 01/11/18 gbzbvbg-usfkzmzkvurkg-erikjhwf 2 tab PO Q6HP PRN #0 01/12/17 01/11/18 [Excedrin Extra Strength] carvedilol [Coreg] 3.125 mg PO BID #0 01/12/17 01/11/18 omega 2-jru-gqy-fish oil [[place]] 1,200 mg PO QDAY #0 01/12/17 01/11/18 timolol maleate 1 drp OPHTH BID #0 01/12/17 01/11/18 latanoprost [Xalatan] 1 drp OPHTH HS #0 08/10/17 01/11/18 aspirin 81 mg PO DAILY 11/02/17 01/11/18 bupropion HCl 150 mg PO BID 11/02/17 01/11/18 cetirizine 10 mg PO DAILY 11/02/17 01/11/18 duloxetine See Label Instructions .ROUTE 11/02/17 01/11/18 .COMPLEX omeprazole 20 mg PO BID 11/02/17 01/11/18 zonisamide 100 mg PO DAILY 11/02/17 01/11/18 Previous Rx's Medication Instructions Recorded erenumab-aooe 70 mg/mL 70 mg SUBCUT QMONTH #1 ml 10/28/17 subcutaneous auto-injector oxycodone-acetaminophen [Percocet] 1 tab PO Q12H PRN #30 tab 11/06/17 Allergies Allergy/AdvReac Type Severity Reaction Status Date / Time No Known Drug Allergies Allergy Verified 11/04/17 12:26 Review of Systems <Taty Leung PA-C - Last Filed: 01/11/18 21:43> Review of Systems All systems reviewed & are unremarkable except as noted in HPI and below Exam <Taty Leung PA-C - Last Filed: 01/11/18 21:43> Narrative Exam Narrative: GENERAL APPEARANCE: Patient sitting comfortably, in no distress. HEENT: No visible scalp hematoma, no ecchymoses. PERRL, EOMI, NORMAL TMS AND OROPHARYNX NECK/THYROID: Neck supple, LUNGS: Clear to auscultation bilaterally. HEART: Regular rate and rhythm without murmur, normal S1, S2, no S3 or S4. ABDOMEN: Soft, NT, ND EXTREMITIES: No cyanosis. No calf tenderness NEUROLOGIC: Alert and oriented, normal speech, and coordination. MS: Moderate tenderness at the mid C-spine most C3-4 levels. No tenderness over the remainder of the cervical, thoracic or lumbar spine. Mild paraspinal musculature tenderness. Full range of motion of the neck. Normal upper extremity range of motion. Tender over the left inferior lateral and posterior ribs. Moderate tenderness over the left lateral hip. She appears to have normal range of motion nonweightbearing, negative [place]'s test. No tenderness over the knees or ankles bilaterally. DERMATOLOGIC: Patchy ecchymoses around the right posterior shoulder, none noted elsewhere Initial Vital Signs Initial Vital Signs: Vital Signs Temperature 97.5 F L 01/11/18 17:24 Pulse Rate 85 01/11/18 17:24 Respiratory Rate 20 01/11/18 17:24 Blood Pressure 167/94 H 01/11/18 17:24 Pulse Oximetry 98 01/11/18 17:24 <Negro Henning DO - Last Filed: 01/12/18 02:59> Initial Vital Signs Initial Vital Signs: Vital Signs Temperature 97.5 F L 01/11/18 17:24 Pulse Rate 85 01/11/18 17:24 Respiratory Rate 20 01/11/18 17:24 Blood Pressure 167/94 H 01/11/18 17:24 Pulse Oximetry 98 01/11/18 17:24 Course <Taty Leung PA-C - Last Filed: 01/11/18 21:43> Decision to Admit Date: 01/11/18 Decision to Admit time: 19:23 Additional Information: I spoke with Dr. Young relationship associate for Medicine re: 3 L. sided rib fractures. Patient is splinting. O2 sats in low to upper 90% range. She is agreeable with admission for pain control and monitoring. Reviewed additional workup done Orders Ordered: ED Orders 01/11/18 18:35 Basic Metabolic Panel Stat Complete Blood Count AUTO DIFF Stat Troponin & CK Cardiac Panel Stat 01/11/18 20:55 Education, smoking cessation ONGOING 01/11/18 20:57 Consult to Occupational Therapy Evaluate & Treat Consult to Physical Therapy Evaluate & Treat 01/12/18 05:00 Basic Metabolic Panel Routine Complete Blood Count AUTO DIFF Routine Hydrocodone Bitart/Acetaminophen ([place] 5/325) 1 tab PO Q4HR PRN PRN Reason: Pain, Moderate (4-6) Last Admin: 01/11/18 23:57 Dose: 1 tab Aspirin (Aspirin Ec) 81 mg PO DAILY [facility] Bisacodyl (Dulcolax) 10 mg SC DAILY PRN PRN Reason: Constipation Bupropion HCl (Welbutrin) 150 mg PO BID [facility] Last Admin: 01/11/18 21:34 Dose: 150 mg Calcium Carbonate (Tums) 500 mg PO BID [facility] Last Admin: 01/11/18 21:30 Dose: Not Given Carvedilol (Coreg) 3.125 mg PO BID [facility] Last Admin: 01/11/18 21:29 Dose: 3.125 mg Docusate Sodium (Colace) 100 mg PO BID [facility] Last Admin: 01/11/18 21:28 Dose: Not Given Duloxetine HCl (Cymbalta) 20 mg PO DAILY [facility] Enoxaparin Sodium (Lovenox) 40 mg SUBCUT DAILY [facility] Hydromorphone HCl (Dilaudid) 0.5 mg IV Q4H PRN PRN Reason: Pain, Severe (7-10) Sodium Chloride (Normal Saline 0.45%) 1,000 mls @ 100 mls/hr IV CONT [facility] Last Admin: 01/11/18 21:26 Dose: 100 mls/hr Latanoprost (Xalatan) 1 drops EYE-BOTH BEDTIME [facility] Last Admin: 01/11/18 21:27 Dose: 1 drops Ondansetron HCl (Zofran) 4 mg IV Q8HR PRN PRN Reason: Nausea And Vomiting Pantoprazole Sodium (Protonix) 20 mg PO BID [facility] Last Admin: 01/11/18 21:35 Dose: 20 mg Simvastatin (Zocor) 20 mg PO BEDTIME [facility] Last Admin: 01/11/18 21:29 Dose: 20 mg Spironolactone (Aldactone) 12.5 mg PO DAILY [facility] Timolol Maleate (Timoptic 0.25% Oph) 1 drops EYE-BOTH DAILY [facility] Vitamin D (Vitamin D3) 2,000 unit PO DAILY [facility] Zonisamide (Zonegran) 100 mg PO BEDTIME [facility] Last Admin: 01/11/18 21:31 Dose: 100 mg Discontinued Medications Denosumab (Prolia) 60 mg SUBCUT NOW ONE Stop: 01/11/18 21:01 Influenza Virus Vaccine (Flu Vaccine) 0.5 ml IM .ONCE ONE Stop: 01/11/18 20:57 Last Admin: 01/11/18 21:40 Dose: 0.5 ml Non-Formulary Medication (Omeprazole) 20 mg PO BID [facility] Last Admin: 01/11/18 21:40 Dose: Oxycodone/Acetaminophen (Percocet 5/325) 2 tab PO NOW ONE Stop: 01/11/18 17:44 Last Admin: 01/11/18 18:52 Dose: 2 tab Vital Signs - 8 hr 01/11/18 20:55 01/11/18 21:05 01/11/18 21:29 Temperature 97.9 F Pulse Rate 90 90 Respiratory Rate 16 Blood Pressure 150/98 H 150/98 H Pulse Oximetry 97 97 01/12/18 00:10 01/12/18 00:17 Temperature 97.3 F L Pulse Rate 84 Respiratory Rate 19 Blood Pressure 150/90 H Pulse Oximetry 93 97 <Negro Henning DO - Last Filed: 01/12/18 02:59> Orders Ordered: ED Orders 01/11/18 18:35 Basic Metabolic Panel Stat Complete Blood Count AUTO DIFF Stat Troponin & CK Cardiac Panel Stat 01/11/18 20:55 Education, smoking cessation ONGOING 01/11/18 20:57 Consult to Occupational Therapy Evaluate & Treat Consult to Physical Therapy Evaluate & Treat 01/12/18 05:00 Basic Metabolic Panel Routine Complete Blood Count AUTO DIFF Routine Hydrocodone Bitart/Acetaminophen ([place] 5/325) 1 tab PO Q4HR PRN PRN Reason: Pain, Moderate (4-6) Last Admin: 01/11/18 23:57 Dose: 1 tab Aspirin (Aspirin Ec) 81 mg PO DAILY [facility] Bisacodyl (Dulcolax) 10 mg SC DAILY PRN PRN Reason: Constipation Bupropion HCl (Welbutrin) 150 mg PO BID [facility] Last Admin: 01/11/18 21:34 Dose: 150 mg Calcium Carbonate (Tums) 500 mg PO BID [facility] Last Admin: 01/11/18 21:30 Dose: Not Given Carvedilol (Coreg) 3.125 mg PO BID [facility] Last Admin: 01/11/18 21:29 Dose: 3.125 mg Docusate Sodium (Colace) 100 mg PO BID [facility] Last Admin: 01/11/18 21:28 Dose: Not Given Duloxetine HCl (Cymbalta) 20 mg PO DAILY [facility] Enoxaparin Sodium (Lovenox) 40 mg SUBCUT DAILY [facility] Hydromorphone HCl (Dilaudid) 0.5 mg IV Q4H PRN PRN Reason: Pain, Severe (7-10) Sodium Chloride (Normal Saline 0.45%) 1,000 mls @ 100 mls/hr IV CONT [facility] Last Admin: 01/11/18 21:26 Dose: 100 mls/hr Latanoprost (Xalatan) 1 drops EYE-BOTH BEDTIME [facility] Last Admin: 01/11/18 21:27 Dose: 1 drops Ondansetron HCl (Zofran) 4 mg IV Q8HR PRN PRN Reason: Nausea And Vomiting Pantoprazole Sodium (Protonix) 20 mg PO BID [facility] Last Admin: 01/11/18 21:35 Dose: 20 mg Simvastatin (Zocor) 20 mg PO BEDTIME [facility] Last Admin: 01/11/18 21:29 Dose: 20 mg Spironolactone (Aldactone) 12.5 mg PO DAILY [facility] Timolol Maleate (Timoptic 0.25% Ophth) 1 drops EYE-BOTH DAILY [facility] Vitamin D (Vitamin D3) 2,000 unit PO DAILY [facility] Zonisamide (Zonegran) 100 mg PO BEDTIME [facility] Last Admin: 01/11/18 21:31 Dose: 100 mg Discontinued Medications Denosumab (Prolia) 60 mg SUBCUT NOW ONE Stop: 01/11/18 21:01 Influenza Virus Vaccine (Flu Vaccine) 0.5 ml IM .ONCE ONE Stop: 01/11/18 20:57 Last Admin: 01/11/18 21:40 Dose: 0.5 ml Non-Formulary Medication (Omeprazole) 20 mg PO BID [facility] Last Admin: 01/11/18 21:40 Dose: Oxycodone/Acetaminophen (Percocet 5/325) 2 tab PO NOW ONE Stop: 01/11/18 17:44 Last Admin: 01/11/18 18:52 Dose: 2 tab Vital Signs - 8 hr 01/11/18 20:55 01/11/18 21:05 01/11/18 21:29 Temperature 97.9 F Pulse Rate 90 90 Respiratory Rate 16 Blood Pressure 150/98 H 150/98 H Pulse Oximetry 97 97 01/12/18 00:10 01/12/18 00:17 Temperature 97.3 F L Pulse Rate 84 Respiratory Rate 19 Blood Pressure 150/90 H Pulse Oximetry 93 97 MDM - Fall <Taty Leung PA-C - Last Filed: 01/11/18 21:43> Lab Data Attestation: I reviewed the patient's lab results. Result diagrams: 01/11/18 18:35 01/11/18 18:35 Lab Results 01/11/18 01/11/18 Range/Units 18:35 18:35 WBC 12.2 H (4.5-11.0) X10^3/uL RBC 4.29 (4.0-5.2) X10^6/uL Hgb 13.0 (12.0-16.0) g/dL Hct 38.6 (36-46) % MCV 90.0 (80-100) fL MCH 30.4 (26-34) PG MCHC 33.8 (30-36) % RDW 14.6 (11.6-14.8) % Plt Count 312 (150-400) X10^3/uL Neut % (Auto) 68.4 (50-75) % Lymph % (Auto) 23.0 L (25-40) % [place] % (Auto) 7.3 (3-14) % Eos % (Auto) 0.9 L (2-4) % Baso % (Auto) 0.4 (0-2) % Neut # (Auto) 8300 H (6718-2700) /uL Sodium 140 (137-145) mmol/L Potassium 3.3 L (3.4-5.1) mmol/L Chloride 105 (98-107) mmol/L Carbon Dioxide 22 (22-32) mmol/L BUN 20 H (7-17) mg/dL Creatinine 1.20 H (0.52-1.04) mg/dL Estimated GFR 43.7 L (>60) mL/min BUN/Creatinine Ratio 16.7 (6-22) Glucose 101 (80-110) mg/dL Calcium 9.6 (8.4-10.2) mg/dL Total Creatine Kinase 61 (30-135) U/L CK-MB (CK-2) TNP CK-MB (CK-2) Rel Index TNP Troponin I < 0.012 (0.01-0.034) ng/mL Imaging Data CT scan - head: Radiologist's impression: [address] [address] [address] Scan Report Signed Patient: Yaneth Laguerre LMR#: [id number] : 2Acct:[id number] Age/Sex: 77 / FDate of Service: 01/11/18 Loc: ED Accession Number: [id number] Procedure: CT head/brain wo con Ordering Provider: Taty Leung P.A-C PROCEDURE: CT HEAD/BRAIN WO CON INDICATIONS: fall, head contusion TECHNIQUE: Noncontrast 4.5 mm thick angled axial sections acquired from the foramen magnum to the vertex, with coronal and sagittal reformats. For radiation dose reduction, the following was used: automated exposure control, adjustment of mA and/or kV according to patient size. COMPARISON: [facility], CT, HEAD WITHOUT CONTRAST, 01/12/2017, 12:19. FINDINGS: Image quality: Excellent. CSF spaces: Basal cisterns are patent. No extra-axial fluid collections. The ventricles are symmetric in size and shape. Brain: No intracranial bleeds or masses. There is moderate cerebral volume loss for age, with resultant ventricular and sulcal prominence. There are severe periventricular and deep white matter chronic small vessel ischemic changes. There is intracranial internal carotid artery atherosclerosis. Skull and face: Calvarium and visualized facial bones appear intact, without suspicious lesions. Sinuses: Visualized sinuses and mastoids are clear. IMPRESSION: No acute intracranial disease process. Dictated by: Kristal De Leon MD, PhD on 01/11/2018 at 18:39 Approved by: Kristal De Leon MD, PhD on 01/11/2018 at 18:43 hip: Radiologist's impression: [address] [address] XRay Report Signed Patient: Yaneth Laguerre LMR#: [id number] : 2Acct:[id number] Age/Sex: 77 / FDate of Service: 01/11/18 Loc: ED Accession Number: [id number] Procedure: XR hip w pel if done JESUS 3to4V Ordering Provider: Taty Leung P.A-C PROCEDURE: XR HIP W PEL IF DONE LT MIN 4V INDICATIONS: fall, pain TECHNIQUE: AP pelvis with lateral view(s) of the left and right hip(s). COMPARISON: None. FINDINGS: Bones: Postsurgical changes compatible with ORIF of right femoral neck fracture noted. No acute fractures or dislocations. Pelvic ring appears intact. No suspicious bony lesions. Soft tissues: The visualized bowel gas pattern is normal. No suspicious soft tissue calcifications. Aortic endograft noted. IMPRESSION: No fracture. No acute osseous lesion. If there are persistent symptoms or clinical suspicion for pathology, then repeat radiographs or advanced imaging (CT, MRI or bone scan) should be considered for further evaluation. Dictated by: Kristal De Leon MD, PhD on 01/11/2018 at 18:38 Approved by: Kristal De Leon MD, PhD on 01/11/2018 at 18:39 ribs: Radiologist's impression: [address] [address] XRay Report Signed Patient: Yaneth Laguerre LMR#: [id number] : 1940cct:[id number] Age/Sex: 77 / FDate of Service: 01/11/18 Loc: ED Accession Number: [id number] Procedure: XR ribs LT min 3V w CXR1V Ordering Provider: Taty Leung P.A-C PROCEDURE: XR RIBS LT MIN 3V W CXR1V INDICATIONS: pain L. inferior ribs s/p fall TECHNIQUE: 2 views of the left ribs were acquired, along with a single view chest. COMPARISON: None. FINDINGS: Surgical changes and devices: Aortic endograft noted. Bones and chest wall: Displaced posterior lateral left eighth, ninth and 10th ribs. No suspicious bony lesions. Overlying soft tissues appear unremarkable. Lungs and pleura: No pleural effusions or pneumothorax. Lungs appear clear. Mediastinum: Mediastinal contours appear normal. Heart size is normal. IMPRESSION: Left eighth, ninth and 10th rib fractures. Dictated by: Kristal De Leon MD, PhD on 01/11/2018 at 18:36 Approved by: Kristal De Leon MD, PhD on 01/11/2018 at 18:38 neck: Radiologist's impression: 19 Taty Leung PA-C Find Patient Imaging ACTIVITY DATE EXAM STATUS AUTHOR 01/11/18 17:43 Signed Kristal De Leon ~ 01/11/18 17:43 Signed Kristal De Leon ~ 01/11/18 17:43 Signed Kristal De Leon ~ 01/11/18 17:43 Signed Kristal De Leon ~ ORDER STATUS ORDER START ORDER DETAIL XR hip w pel if done LT min 4V Cancelled 01/11/18 17:[address] [address] [address] Scan Report Signed Patient: Yaneth Laguerre LMR#: [id number] : 2Acct:[id number] Age/Sex: 77 / FDate of Service: 01/11/18 Loc: ED Accession Number: [id number] Procedure: CT cervical spine wo con Ordering Provider: Taty Leung P.A-C PROCEDURE: CT CERVICAL SPINE WO CON INDICATIONS: pain, fall TECHNIQUE: Noncontrast 3 mm thick sections acquired from the skull base to the T4 level. Sagittal and coronal reformats were then constructed. For radiation dose reduction, the following was used: automated exposure control, adjustment of mA and/or kV according to patient size. COMPARISON: [facility], CT, C-SPINE WITHOUT CONTRAST, 01/12/2017, 12:19. FINDINGS: Image quality: Excellent. Bones: No fractures or dislocations. Trace degenerative C7-T1 and T1-T2 anterolisthesis Visualized superior ribs are intact. Spine degenerative disease and facet arthropathy noted. Soft tissues: Prevertebral soft tissues are normal in thickness. No paravertebral hematomas. No apical pneumothoraces. Atherosclerotic calcifications noted in the carotid arteries. IMPRESSION: No fracture. No acute osseous lesion. If there are persistent symptoms or continued clinical suspicion for pathology, then MRI should be considered for further evaluation. Dictated by: Kristal De Leon MD, PhD on 01/11/2018 at 18:43 Approved by: Kristal De Leon MD, PhD on 01/11/2018 at 18:49 ECG Data Attestation: I personally reviewed and interpreted this ECG as follows: (Normal sinus rhythm with rate 82, normal axis, no acute changes) Prior ECG tracings: available for review <Negro Henning DO - Last Filed: 01/12/18 02:59> Lab Data Lab Results 01/11/18 01/11/18 Range/Units 18:35 18:35 WBC 12.2 H (4.5-11.0) X10^3/uL RBC 4.29 (4.0-5.2) X10^6/uL Hgb 13.0 (12.0-16.0) g/dL Hct 38.6 (36-46) % MCV 90.0 (80-100) fL MCH 30.4 (26-34) PG MCHC 33.8 (30-36) % RDW 14.6 (11.6-14.8) % Plt Count 312 (150-400) X10^3/uL Neut % (Auto) 68.4 (50-75) % Lymph % (Auto) 23.0 L (25-40) % [place] % (Auto) 7.3 (3-14) % Eos % (Auto) 0.9 L (2-4) % Baso % (Auto) 0.4 (0-2) % Neut # (Auto) 8300 H (7485-5125) /uL Sodium 140 (137-145) mmol/L Potassium 3.3 L (3.4-5.1) mmol/L Chloride 105 (98-107) mmol/L Carbon Dioxide 22 (22-32) mmol/L BUN 20 H (7-17) mg/dL Creatinine 1.20 H (0.52-1.04) mg/dL Estimated GFR 43.7 L (>60) mL/min BUN/Creatinine Ratio 16.7 (6-22) Glucose 101 (80-110) mg/dL Calcium 9.6 (8.4-10.2) mg/dL Total Creatine Kinase 61 (30-135) U/L CK-MB (CK-2) TNP CK-MB (CK-2) Rel Index TNP Troponin I < 0.012 (0.01-0.034) ng/mL Discharge Plan Departure Patient Disposition: Admitted As Inpatient Clinical Impression: Multiple fractures of ribs of left side Discharge Date/Time: 01/11/18 20:35 Interventions: ED Discharge Assessment Last Done: 01/11/18 20:34 Admit Date/Time: 01/11/18 20:28 Admit Provider: Roz Young <Negro Henning DO - Last Filed: 01/12/18 02:59> Cosign ED Attending Janet Attestation: I was immediately available in the department for consultation. Documentation has been reviewed. I agree with assessment and plan.
--- NOTE | 2018-01-11 17:43 | DI.CT.S_ITS ---
PROCEDURE: CT HEAD/BRAIN WO CON INDICATIONS: fall, head contusion TECHNIQUE: Noncontrast 4.5 mm thick angled axial sections acquired from the foramen magnum to the vertex, with coronal and sagittal reformats. For radiation dose reduction, the following was used: automated exposure control, adjustment of mA and/or kV according to patient size. COMPARISON: [facility], CT, HEAD WITHOUT CONTRAST, 01/12/2017, 12:19. FINDINGS: Image quality: Excellent. CSF spaces: Basal cisterns are patent. No extra-axial fluid collections. The ventricles are symmetric in size and shape. Brain: No intracranial bleeds or masses. There is moderate cerebral volume loss for age, with resultant ventricular and sulcal prominence. There are severe periventricular and deep white matter chronic small vessel ischemic changes. There is intracranial internal carotid artery atherosclerosis. Skull and face: Calvarium and visualized facial bones appear intact, without suspicious lesions. Sinuses: Visualized sinuses and mastoids are clear. IMPRESSION: No acute intracranial disease process. Dictated by: Kristal De Leon MD, PhD on 01/11/2018 at 18:39 Approved by: Kristal De Leon MD, PhD on 01/11/2018 at 18:43
--- NOTE | 2018-01-11 17:43 | DI.CT.S_ITS ---
PROCEDURE: CT CERVICAL SPINE WO CON INDICATIONS: pain, fall TECHNIQUE: Noncontrast 3 mm thick sections acquired from the skull base to the T4 level. Sagittal and coronal reformats were then constructed. For radiation dose reduction, the following was used: automated exposure control, adjustment of mA and/or kV according to patient size. COMPARISON: [facility], CT, C-SPINE WITHOUT CONTRAST, 01/12/2017, 12:19. FINDINGS: Image quality: Excellent. Bones: No fractures or dislocations. Trace degenerative C7-T1 and T1-T2 anterolisthesis Visualized superior ribs are intact. Spine degenerative disease and facet arthropathy noted. Soft tissues: Prevertebral soft tissues are normal in thickness. No paravertebral hematomas. No apical pneumothoraces. Atherosclerotic calcifications noted in the carotid arteries. IMPRESSION: No fracture. No acute osseous lesion. If there are persistent symptoms or continued clinical suspicion for pathology, then MRI should be considered for further evaluation. Dictated by: Kristal De Leon MD, PhD on 01/11/2018 at 18:43 Approved by: Kristal De Leon MD, PhD on 01/11/2018 at 18:49
--- NOTE | 2018-01-11 17:43 | DI.RAD.S_ITS ---
PROCEDURE: XR HIP W PEL IF DONE LT MIN 4V INDICATIONS: fall, pain TECHNIQUE: AP pelvis with lateral view(s) of the left and right hip(s). COMPARISON: None. FINDINGS: Bones: Postsurgical changes compatible with ORIF of right femoral neck fracture noted. No acute fractures or dislocations. Pelvic ring appears intact. No suspicious bony lesions. Soft tissues: The visualized bowel gas pattern is normal. No suspicious soft tissue calcifications. Aortic endograft noted. IMPRESSION: No fracture. No acute osseous lesion. If there are persistent symptoms or clinical suspicion for pathology, then repeat radiographs or advanced imaging (CT, MRI or bone scan) should be considered for further evaluation. Dictated by: Kristal De Leon MD, PhD on 01/11/2018 at 18:38 Approved by: Kristal De Leon MD, PhD on 01/11/2018 at 18:39
--- NOTE | 2018-01-11 17:43 | DI.RAD.S_ITS ---
PROCEDURE: XR RIBS LT MIN 3V W CXR1V INDICATIONS: pain L. inferior ribs s/p fall TECHNIQUE: 2 views of the left ribs were acquired, along with a single view chest. COMPARISON: None. FINDINGS: Surgical changes and devices: Aortic endograft noted. Bones and chest wall: Displaced posterior lateral left eighth, ninth and 10th ribs. No suspicious bony lesions. Overlying soft tissues appear unremarkable. Lungs and pleura: No pleural effusions or pneumothorax. Lungs appear clear. Mediastinum: Mediastinal contours appear normal. Heart size is normal. IMPRESSION: Left eighth, ninth and 10th rib fractures. Dictated by: Kristal De Leon MD, PhD on 01/11/2018 at 18:36 Approved by: Kristal De Leon MD, PhD on 01/11/2018 at 18:38
--- NOTE | 2018-01-11 17:51 | ED_ITS ---
HPI - Fall <Taty Leung PA-C - Last Filed: 01/11/18 21:43> General Chief Complaint: Fall Stated Complaint: GLF Time Seen by Provider: 01/11/18 17:26 Source: patient Mode of arrival: EMS Limitations: no limitations History of Present Illness HPI Narrative: This 77-year-old female is brought in by EMS due to ground level fall. She states that she fell mainly onto her left hip and rib area (states she purposefully tried to avoid the right side due to recent hip fracture). She states that she over did it with her walking today, played pool and went to the grocery store and felt like her leg was sore and weak. She states that she had to rest at the grocery store due to this. After she got home, she was bringing groceries with her walker and felt like her leg gave out and fell backwards onto the cement. She states that she hit her hip and left side 1st, states that she bumped the back of her head slightly. Does not think she hit her neck at all. She states that she has very mild headache, no nausea or vision change. She states that she has mild pain just lying down, but increased pain with deep breath, cough, or moving her trunk. She does not feel short of breath. She states that she any chest pain or dizziness leading up to the fall, but states when she was scooting and crawling to get back in the house her chest hurt somewhat, no pain now. She denies any other complaints on systems review. States she has been doing okay with her recent right hip fracture and was supposed to start outpatient PT tomorrow Related Data Home Medications Medication Instructions Recorded Confirmed cholecalciferol (vitamin D3) 1 tab PO QDAY #0 05/29/11 01/11/18 [Vitamin D3] melatonin 10 mg PO HSP PRN #0 05/29/11 01/11/18 simvastatin 20 mg PO HS #0 05/29/11 01/11/18 spironolactone 12.5 mg PO QDAY #0 05/29/11 01/11/18 mjgqwkd-hloknbktkuxpi-asqlabzw 2 tab PO Q6HP PRN #0 01/12/17 01/11/18 [Excedrin Extra Strength] carvedilol [Coreg] 3.125 mg PO BID #0 01/12/17 01/11/18 omega 0-wgh-thv-fish oil [Omera] 1,200 mg PO QDAY #0 01/12/17 01/11/18 timolol maleate 1 drp OPHTH BID #0 01/12/17 01/11/18 latanoprost [Xalatan] 1 drp OPHTH HS #0 08/10/17 01/11/18 aspirin 81 mg PO DAILY 11/02/17 01/11/18 bupropion HCl 150 mg PO BID 11/02/17 01/11/18 cetirizine 10 mg PO DAILY 11/02/17 01/11/18 duloxetine See Label Instructions .ROUTE 11/02/17 01/11/18 .COMPLEX omeprazole 20 mg PO BID 11/02/17 01/11/18 zonisamide 100 mg PO DAILY 11/02/17 01/11/18 Previous Rx's Medication Instructions Recorded erenumab-aooe 70 mg/mL 70 mg SUBCUT QMONTH #1 ml 10/28/17 subcutaneous auto-injector oxycodone-acetaminophen [Percocet] 1 tab PO Q12H PRN #30 tab 11/06/17 Allergies Allergy/AdvReac Type Severity Reaction Status Date / Time No Known Drug Allergies Allergy Verified 11/04/17 12:26 Review of Systems <Taty Leung PA-C - Last Filed: 01/11/18 21:43> Review of Systems All systems reviewed & are unremarkable except as noted in HPI and below Exam <Taty Leung PA-C - Last Filed: 01/11/18 21:43> Narrative Exam Narrative: GENERAL APPEARANCE: Patient sitting comfortably, in no distress. HEENT: No visible scalp hematoma, no ecchymoses. PERRL, EOMI, NORMAL TMS AND OROPHARYNX NECK/THYROID: Neck supple, LUNGS: Clear to auscultation bilaterally. HEART: Regular rate and rhythm without murmur, normal S1, S2, no S3 or S4. ABDOMEN: Soft, NT, ND EXTREMITIES: No cyanosis. No calf tenderness NEUROLOGIC: Alert and oriented, normal speech, and coordination. MS: Moderate tenderness at the mid C-spine most C3-4 levels. No tenderness over the remainder of the cervical, thoracic or lumbar spine. Mild paraspinal musculature tenderness. Full range of motion of the neck. Normal upper extremity range of motion. Tender over the left inferior lateral and posterior ribs. Moderate tenderness over the left lateral hip. She appears to have normal range of motion nonweightbearing, negative [place]'s test. No tenderness over the knees or ankles bilaterally. DERMATOLOGIC: Patchy ecchymoses around the right posterior shoulder, none noted elsewhere Initial Vital Signs Initial Vital Signs: Vital Signs Temperature 97.5 F L 01/11/18 17:24 Pulse Rate 85 01/11/18 17:24 Respiratory Rate 20 01/11/18 17:24 Blood Pressure 167/94 H 01/11/18 17:24 Pulse Oximetry 98 01/11/18 17:24 <Negro Henning DO - Last Filed: 01/12/18 02:59> Initial Vital Signs Initial Vital Signs: Vital Signs Temperature 97.5 F L 01/11/18 17:24 Pulse Rate 85 01/11/18 17:24 Respiratory Rate 20 01/11/18 17:24 Blood Pressure 167/94 H 01/11/18 17:24 Pulse Oximetry 98 01/11/18 17:24 Course <Taty Leung PA-C - Last Filed: 01/11/18 21:43> Decision to Admit Date: 01/11/18 Decision to Admit time: 19:23 Additional Information: I spoke with Dr. Young personal care service provider for Medicine re: 3 L. sided rib fractures. Patient is splinting. O2 sats in low to upper 90% range. She is agreeable with admission for pain control and monitoring. Reviewed additional workup done Orders Ordered: ED Orders 01/11/18 18:35 Basic Metabolic Panel Stat Complete Blood Count AUTO DIFF Stat Troponin & CK Cardiac Panel Stat 01/11/18 20:55 Education, smoking cessation ONGOING 01/11/18 20:57 Consult to Occupational Therapy Evaluate & Treat Consult to Physical Therapy Evaluate & Treat 01/12/18 05:00 Basic Metabolic Panel Routine Complete Blood Count AUTO DIFF Routine Hydrocodone Bitart/Acetaminophen ([place] 5/325) 1 tab PO Q4HR PRN PRN Reason: Pain, Moderate (4-6) Last Admin: 01/11/18 23:57 Dose: 1 tab Aspirin (Aspirin Ec) 81 mg PO DAILY [facility] Bisacodyl (Dulcolax) 10 mg [place] DAILY PRN PRN Reason: Constipation Bupropion HCl (Welbutrin) 150 mg PO BID [facility] Last Admin: 01/11/18 21:34 Dose: 150 mg Calcium Carbonate (Tums) 500 mg PO BID [facility] Last Admin: 01/11/18 21:30 Dose: Not Given Carvedilol (Coreg) 3.125 mg PO BID [facility] Last Admin: 01/11/18 21:29 Dose: 3.125 mg Docusate Sodium (Colace) 100 mg PO BID [facility] Last Admin: 01/11/18 21:28 Dose: Not Given Duloxetine HCl (Cymbalta) 20 mg PO DAILY [facility] Enoxaparin Sodium (Lovenox) 40 mg SUBCUT DAILY [facility] Hydromorphone HCl (Dilaudid) 0.5 mg IV Q4H PRN PRN Reason: Pain, Severe (7-10) Sodium Chloride (Normal Saline 0.45%) 1,000 mls @ 100 mls/hr IV CONT [facility] Last Admin: 01/11/18 21:26 Dose: 100 mls/hr Latanoprost (Xalatan) 1 drops EYE-BOTH BEDTIME [facility] Last Admin: 01/11/18 21:27 Dose: 1 drops Ondansetron HCl (Zofran) 4 mg IV Q8HR PRN PRN Reason: Nausea And Vomiting Pantoprazole Sodium (Protonix) 20 mg PO BID [facility] Last Admin: 01/11/18 21:35 Dose: 20 mg Simvastatin (Zocor) 20 mg PO BEDTIME [facility] Last Admin: 01/11/18 21:29 Dose: 20 mg Spironolactone (Aldactone) 12.5 mg PO DAILY [facility] Timolol Maleate (Timoptic 0.25% Oph) 1 drops EYE-BOTH DAILY [facility] Vitamin D (Vitamin D3) 2,000 unit PO DAILY [facility] Zonisamide (Zonegran) 100 mg PO BEDTIME [facility] Last Admin: 01/11/18 21:31 Dose: 100 mg Discontinued Medications Denosumab (Prolia) 60 mg SUBCUT NOW ONE Stop: 01/11/18 21:01 Influenza Virus Vaccine (Flu Vaccine) 0.5 ml IM .ONCE ONE Stop: 01/11/18 20:57 Last Admin: 01/11/18 21:40 Dose: 0.5 ml Non-Formulary Medication (Omeprazole) 20 mg PO BID [facility] Last Admin: 01/11/18 21:40 Dose: Oxycodone/Acetaminophen (Percocet 5/325) 2 tab PO NOW ONE Stop: 01/11/18 17:44 Last Admin: 01/11/18 18:52 Dose: 2 tab Vital Signs - 8 hr 01/11/18 20:55 01/11/18 21:05 01/11/18 21:29 Temperature 97.9 F Pulse Rate 90 90 Respiratory Rate 16 Blood Pressure 150/98 H 150/98 H Pulse Oximetry 97 97 01/12/18 00:10 01/12/18 00:17 Temperature 97.3 F L Pulse Rate 84 Respiratory Rate 19 Blood Pressure 150/90 H Pulse Oximetry 93 97 <Negro Henning DO - Last Filed: 01/12/18 02:59> Orders Ordered: ED Orders 01/11/18 18:35 Basic Metabolic Panel Stat Complete Blood Count AUTO DIFF Stat Troponin & CK Cardiac Panel Stat 01/11/18 20:55 Education, smoking cessation ONGOING 01/11/18 20:57 Consult to Occupational Therapy Evaluate & Treat Consult to Physical Therapy Evaluate & Treat 01/12/18 05:00 Basic Metabolic Panel Routine Complete Blood Count AUTO DIFF Routine Hydrocodone Bitart/Acetaminophen ([place] 5/325) 1 tab PO Q4HR PRN PRN Reason: Pain, Moderate (4-6) Last Admin: 01/11/18 23:57 Dose: 1 tab Aspirin (Aspirin Ec) 81 mg PO DAILY [facility] Bisacodyl (Dulcolax) 10 mg [place] DAILY PRN PRN Reason: Constipation Bupropion HCl (Welbutrin) 150 mg PO BID [facility] Last Admin: 01/11/18 21:34 Dose: 150 mg Calcium Carbonate (Tums) 500 mg PO BID [facility] Last Admin: 01/11/18 21:30 Dose: Not Given Carvedilol (Coreg) 3.125 mg PO BID [facility] Last Admin: 01/11/18 21:29 Dose: 3.125 mg Docusate Sodium (Colace) 100 mg PO BID [facility] Last Admin: 01/11/18 21:28 Dose: Not Given Duloxetine HCl (Cymbalta) 20 mg PO DAILY [facility] Enoxaparin Sodium (Lovenox) 40 mg SUBCUT DAILY [facility] Hydromorphone HCl (Dilaudid) 0.5 mg IV Q4H PRN PRN Reason: Pain, Severe (7-10) Sodium Chloride (Normal Saline 0.45%) 1,000 mls @ 100 mls/hr IV CONT [facility] Last Admin: 01/11/18 21:26 Dose: 100 mls/hr Latanoprost (Xalatan) 1 drops EYE-BOTH BEDTIME [facility] Last Admin: 01/11/18 21:27 Dose: 1 drops Ondansetron HCl (Zofran) 4 mg IV Q8HR PRN PRN Reason: Nausea And Vomiting Pantoprazole Sodium (Protonix) 20 mg PO BID [facility] Last Admin: 01/11/18 21:35 Dose: 20 mg Simvastatin (Zocor) 20 mg PO BEDTIME [facility] Last Admin: 01/11/18 21:29 Dose: 20 mg Spironolactone (Aldactone) 12.5 mg PO DAILY [facility] Timolol Maleate (Timoptic 0.25% Ophth) 1 drops EYE-BOTH DAILY [facility] Vitamin D (Vitamin D3) 2,000 unit PO DAILY [facility] Zonisamide (Zonegran) 100 mg PO BEDTIME [facility] Last Admin: 01/11/18 21:31 Dose: 100 mg Discontinued Medications Denosumab (Prolia) 60 mg SUBCUT NOW ONE Stop: 01/11/18 21:01 Influenza Virus Vaccine (Flu Vaccine) 0.5 ml IM .ONCE ONE Stop: 01/11/18 20:57 Last Admin: 01/11/18 21:40 Dose: 0.5 ml Non-Formulary Medication (Omeprazole) 20 mg PO BID [facility] Last Admin: 01/11/18 21:40 Dose: Oxycodone/Acetaminophen (Percocet 5/325) 2 tab PO NOW ONE Stop: 01/11/18 17:44 Last Admin: 01/11/18 18:52 Dose: 2 tab Vital Signs - 8 hr 01/11/18 20:55 01/11/18 21:05 01/11/18 21:29 Temperature 97.9 F Pulse Rate 90 90 Respiratory Rate 16 Blood Pressure 150/98 H 150/98 H Pulse Oximetry 97 97 01/12/18 00:10 01/12/18 00:17 Temperature 97.3 F L Pulse Rate 84 Respiratory Rate 19 Blood Pressure 150/90 H Pulse Oximetry 93 97 MDM - Fall <Taty Leung PA-C - Last Filed: 01/11/18 21:43> Lab Data Attestation: I reviewed the patient's lab results. Result diagrams: 01/11/18 18:35 01/11/18 18:35 Lab Results 01/11/18 01/11/18 Range/Units 18:35 18:35 WBC 12.2 H (4.5-11.0) X10^3/uL RBC 4.29 (4.0-5.2) X10^6/uL Hgb 13.0 (12.0-16.0) g/dL Hct 38.6 (36-46) % MCV 90.0 (80-100) fL MCH 30.4 (26-34) PG MCHC 33.8 (30-36) % RDW 14.6 (11.6-14.8) % Plt Count 312 (150-400) X10^3/uL Neut % (Auto) 68.4 (50-75) % Lymph % (Auto) 23.0 L (25-40) % [place] % (Auto) 7.3 (3-14) % Eos % (Auto) 0.9 L (2-4) % Baso % (Auto) 0.4 (0-2) % Neut # (Auto) 8300 H (1575-0766) /uL Sodium 140 (137-145) mmol/L Potassium 3.3 L (3.4-5.1) mmol/L Chloride 105 (98-107) mmol/L Carbon Dioxide 22 (22-32) mmol/L BUN 20 H (7-17) mg/dL Creatinine 1.20 H (0.52-1.04) mg/dL Estimated GFR 43.7 L (>60) mL/min BUN/Creatinine Ratio 16.7 (6-22) Glucose 101 (80-110) mg/dL Calcium 9.6 (8.4-10.2) mg/dL Total Creatine Kinase 61 (30-135) U/L CK-MB (CK-2) TNP CK-MB (CK-2) Rel Index TNP Troponin I < 0.012 (0.01-0.034) ng/mL Imaging Data CT scan - head: Radiologist's impression: [address] [address] [address] Scan Report Signed Patient: Yaneth Laguerre LMR#: [id number] : 2Acct:[id number] Age/Sex: 77 / FDate of Service: 01/11/18 Loc: ED Accession Number: [id number] Procedure: CT head/brain wo con Ordering Provider: Taty Leung P.A-C PROCEDURE: CT HEAD/BRAIN WO CON INDICATIONS: fall, head contusion TECHNIQUE: Noncontrast 4.5 mm thick angled axial sections acquired from the foramen magnum to the vertex, with coronal and sagittal reformats. For radiation dose reduction, the following was used: automated exposure control, adjustment of mA and/or kV according to patient size. COMPARISON: [facility], CT, HEAD WITHOUT CONTRAST, 01/12/2017, 12:19. FINDINGS: Image quality: Excellent. CSF spaces: Basal cisterns are patent. No extra-axial fluid collections. The ventricles are symmetric in size and shape. Brain: No intracranial bleeds or masses. There is moderate cerebral volume loss for age, with resultant ventricular and sulcal prominence. There are severe periventricular and deep white matter chronic small vessel ischemic changes. There is intracranial internal carotid artery atherosclerosis. Skull and face: Calvarium and visualized facial bones appear intact, without suspicious lesions. Sinuses: Visualized sinuses and mastoids are clear. IMPRESSION: No acute intracranial disease process. Dictated by: Kristal De Leon MD, PhD on 01/11/2018 at 18:39 Approved by: Kristal De Leon MD, PhD on 01/11/2018 at 18:43 hip: Radiologist's impression: [address] [address] XRay Report Signed Patient: Yaneth Laguerre LMR#: [id number] : 2Acct:[id number] Age/Sex: 77 / FDate of Service: 01/11/18 Loc: ED Accession Number: [id number] Procedure: XR hip w pel if done JESUS 3to4V Ordering Provider: Taty Leung P.A-C PROCEDURE: XR HIP W PEL IF DONE LT MIN 4V INDICATIONS: fall, pain TECHNIQUE: AP pelvis with lateral view(s) of the left and right hip(s). COMPARISON: None. FINDINGS: Bones: Postsurgical changes compatible with ORIF of right femoral neck fracture noted. No acute fractures or dislocations. Pelvic ring appears intact. No suspicious bony lesions. Soft tissues: The visualized bowel gas pattern is normal. No suspicious soft tissue calcifications. Aortic endograft noted. IMPRESSION: No fracture. No acute osseous lesion. If there are persistent symptoms or clinical suspicion for pathology, then repeat radiographs or advanced imaging ( CT, MRI or bone scan) should be considered for further evaluation. Dictated by: Kristal De Leon MD, PhD on 01/11/2018 at 18:38 Approved by: Kristal De Leon MD, PhD on 01/11/2018 at 18:39 ribs: Radiologist's impression: [address] [address] XRay Report Signed Patient: Yaneth Laguerre LMR#: [id number] : 1940cct:[id number] Age/Sex: 77 / FDate of Service: 01/11/18 Loc: ED Accession Number: [id number] Procedure: XR ribs LT min 3V w CXR1V Ordering Provider: Taty Leung P.A-C PROCEDURE: XR RIBS LT MIN 3V W CXR1V INDICATIONS: pain L. inferior ribs s/p fall TECHNIQUE: 2 views of the left ribs were acquired, along with a single view chest. COMPARISON: None. FINDINGS: Surgical changes and devices: Aortic endograft noted. Bones and chest wall: Displaced posterior lateral left eighth, ninth and 10th ribs. No suspicious bony lesions. Overlying soft tissues appear unremarkable. Lungs and pleura: No pleural effusions or pneumothorax. Lungs appear clear. Mediastinum: Mediastinal contours appear normal. Heart size is normal. IMPRESSION: Left eighth, ninth and 10th rib fractures. Dictated by: Kristal De Leon MD, PhD on 01/11/2018 at 18:36 Approved by: Kristal De Leon MD, PhD on 01/11/2018 at 18:38 neck: Radiologist's impression: 19 Taty Leung PA-C Find Patient Imaging ACTIVITY DATE EXAM STATUS AUTHOR 01/11/18 17:43 Signed Kristal De Leon ~ 01/11/18 17:43 Signed Kristal De Leon ~ 01/11/18 17:43 Signed Kristal De Leon ~ 01/11/18 17:43 Signed Kristal De Leon ~ ORDER STATUS ORDER START ORDER DETAIL XR hip w pel if done LT min 4V Cancelled 01/11/18 17:[address] [address] [address] Scan Report Signed Patient: Yaneth Laguerre LMR#: [id number] : 2Acct:[id number] Age/Sex: 77 / FDate of Service: 01/11/18 Loc: ED Accession Number: [id number] Procedure: CT cervical spine wo con Ordering Provider: Taty Leung P.A-C PROCEDURE: CT CERVICAL SPINE WO CON INDICATIONS: pain, fall TECHNIQUE: Noncontrast 3 mm thick sections acquired from the skull base to the T4 level. Sagittal and coronal reformats were then constructed. For radiation dose reduction, the following was used: automated exposure control, adjustment of mA and/or kV according to patient size. COMPARISON: [facility], CT, C-SPINE WITHOUT CONTRAST, 01/12/2017, 12:19. FINDINGS: Image quality: Excellent. Bones: No fractures or dislocations. Trace degenerative C7-T1 and T1-T2 anterolisthesis Visualized superior ribs are intact. Spine degenerative disease and facet arthropathy noted. Soft tissues: Prevertebral soft tissues are normal in thickness. No paravertebral hematomas. No apical pneumothoraces. Atherosclerotic calcifications noted in the carotid arteries. IMPRESSION: No fracture. No acute osseous lesion. If there are persistent symptoms or continued clinical suspicion for pathology, then MRI should be considered for further evaluation. Dictated by: Kristal De Leon MD, PhD on 01/11/2018 at 18:43 Approved by: Kristal De Leon MD, PhD on 01/11/2018 at 18:49 ECG Data Attestation: I personally reviewed and interpreted this ECG as follows: (Normal sinus rhythm with rate 82, normal axis, no acute changes) Prior ECG tracings: available for review <Negro Henning DO - Last Filed: 01/12/18 02:59> Lab Data Lab Results 01/11/18 01/11/18 Range/Units 18:35 18:35 WBC 12.2 H (4.5-11.0) X10^3/uL RBC 4.29 (4.0-5.2) X10^6/uL Hgb 13.0 (12.0-16.0) g/dL Hct 38.6 (36-46) % MCV 90.0 (80-100) fL MCH 30.4 (26-34) PG MCHC 33.8 (30-36) % RDW 14.6 (11.6-14.8) % Plt Count 312 (150-400) X10^3/uL Neut % (Auto) 68.4 (50-75) % Lymph % (Auto) 23.0 L (25-40) % [place] % (Auto) 7.3 (3-14) % Eos % (Auto) 0.9 L (2-4) % Baso % (Auto) 0.4 (0-2) % Neut # (Auto) 8300 H (2102-8005) /uL Sodium 140 (137-145) mmol/L Potassium 3.3 L (3.4-5.1) mmol/L Chloride 105 (98-107) mmol/L Carbon Dioxide 22 (22-32) mmol/L BUN 20 H (7-17) mg/dL Creatinine 1.20 H (0.52-1.04) mg/dL Estimated GFR 43.7 L (>60) mL/min BUN/Creatinine Ratio 16.7 (6-22) Glucose 101 (80-110) mg/dL Calcium 9.6 (8.4-10.2) mg/dL Total Creatine Kinase 61 (30-135) U/L CK-MB (CK-2) TNP CK-MB (CK-2) Rel Index TNP Troponin I < 0.012 (0.01-0.034) ng/mL Discharge Plan Departure Patient Disposition: Admitted As Inpatient Clinical Impression: Multiple fractures of ribs of left side Discharge Date/Time: 01/11/18 20:35 Interventions: ED Discharge Assessment Last Done: 01/11/18 20:34 Admit Date/Time: 01/11/18 20:28 Admit Provider: Roz Young <Negro Henning DO - Last Filed: 01/12/18 02:59> Cosign ED Attending Janet Attestation: I was immediately available in the department for consultation. Documentation has been reviewed. I agree with assessment and plan.
[2018-01-11 18:46] LABS: Add Manual Diff / Slide Review NO; Basophils Percent Auto 0.4 % (0-2); Eosinophils Percent Auto 0.9 % (2-4); Hematocrit 38.6 % (36-46); Mean Corpuscular HGB Conc 33.8 % (30-36); Mean Corpuscular Hemoglobin 30.4 PG (26-34); Monocytes Percent Auto 7.3 % (3-14); Neutrophils Absolute Auto 8300 /uL (3000-5900); Neutrophils Percent Auto 68.4 % (50-75); Platelet Count 312 X10^3/uL (150-400); Red Blood Cell Count 4.29 X10^6/uL (4.0-5.2); Red Cell Distribution Width 14.6 % (11.6-14.8); White Blood Cell Count 12.2 X10^3/uL (4.5-11.0)
[2018-01-11 18:49] VITALS: BP 150/91; PULSE 94; RESP 28; O2SAT 97
[2018-01-11] MEDS: OXYCODONE/ACETAMINOPHEN 5/325 TABLET 2 TAB PO (18:52)
[2018-01-11 19:02] LABS: BUN Creatinine Ratio 16.7 (6-22); Blood Urea Nitrogen 20 mg/dL (7-17); Calcium 9.6 mg/dL (8.4-10.2); Carbon Dioxide 22 mmol/L (22-32); Chloride 105 mmol/L (98-107); Creatine Kinase 61 U/L (30-135); Estimated Glomerular Filt Rate 43.7 mL/min (>60); Glucose 101 mg/dL (80-110); HEMOLYSIS 18 (0-50); Potassium 3.3 mmol/L (3.4-5.1); Sodium 140 mmol/L (137-145)
--- NOTE | 2018-01-11 19:04 | PC.NURSE ---
C-collar removed by provider.
[2018-01-11 19:20] LABS: Troponin I < 0.012 ng/mL (0.01-0.034)
[2018-01-11 20:50] VITALS: BMI 24.7
[2018-01-11 20:55] VITALS: BP 150/98; PULSE 90; RESP 16; TEMP 36.6; O2SAT 97
[2018-01-11 21:05] VITALS: O2SAT 97
[2018-01-11] MEDS: SODIUM CHLORIDE 0.45% 1,000 ML 100 ML IV (21:26)
[2018-01-11] MEDS: LATANOPROST 0.005% OPHTH 2.5 ML 1 DROPS EYE-BOTH (21:27)
[2018-01-11 21:29] VITALS: BP 150/98; PULSE 90
[2018-01-11] MEDS: SIMVASTATIN 20 MG TABLET PO (21:29)
[2018-01-11] MEDS: CARVEDILOL 3.125 MG TABLET PO (21:29)
[2018-01-11] MEDS: ZONISAMIDE 100 MG CAPSULE PO (21:31)
[2018-01-11] MEDS: buPROPion 75 MG TABLET 150 MG PO (21:34)
[2018-01-11] MEDS: PANTOPRAZOLE 20 MG TABLET PO (21:35)
[2018-01-11] MEDS: INFLUENZA VACCINE 0.5 ML SYRINGE IM (21:40)
--- NOTE | 2018-01-11 21:57 | PC.ADMIT ---
Addendum entered by Lien Martin R.N. 01/11/18 22:41: sub cut. shot not available in night pharmacy. will get form day pharmacy tomorrow. pt updated, will continue to monitor. Original Note: [id number] [address] Admission Note: The patient,Yaneth Laguerre,77 y/o, was given written information regarding hospital policies, unit procedures and contact persons. Patient's smoking status: Former smoker. Vital Signs - 8 hr 01/11/18 17:24 01/11/18 18:49 01/11/18 20:55 Temperature 97.5 F L 97.9 F Pulse Rate 85 94 H 90 Respiratory Rate 20 28 H 16 Blood Pressure 167/94 H 150/98 H Blood Pressure [Left Arm] 150/91 H Pulse Oximetry 98 97 97 01/11/18 21:05 01/11/18 21:29 Temperature Pulse Rate 90 Respiratory Rate Blood Pressure 150/98 H Blood Pressure [Left Arm] Pulse Oximetry 97 Pt arrived to floor with long goods drier and stretcher. Pt complains of pain 4/10 but states it is tolerable. Pt compliant and good historian with admission process. FLU vaccine ordered and administered. Pt uses call light. encouraged to take deep breaths. will teach IS use. fluids started. night meds given. pt uses call light. will continue to monitor pt for safety.
[2018-01-11] MEDS: HYDROCODONE/ACET 5/325 TABLET 1 TAB PO (23:57)
[2018-01-12] VITALS (12 sets, daily range): BP systolic 124–150; BP diastolic 73–90; PULSE 67–89; RESP 14–19; TEMP 35.9–36.6; O2SAT 93–99
--- NOTE | 2018-01-12 00:18 | PC.NURSE ---
Patient is alert and oriented except off on day of week. Breath sounds CTA with RA sat of 97%; hurts to take deep breath so discussed importance of pain control so that she maintains ability to deep breathe in order to prevent pneumonia. HRR with elevated BP of 150/90. Denies nausea. BT present and abdomen is soft. Up to BSC with 1 assist and denies dysuria, frequency, urgency or incontinence. Noted large bruised area at posterior, lower left ribs and small bruises on right posterior shoulder. States pain is currently 5/10 so medicated with Vicodin. Fall risk score is high and bed alarm is activated.
[2018-01-12] MEDS: HYDROCODONE/ACET 5/325 TABLET 1 TAB PO ×3 (05:44→21:17)
[2018-01-12 06:07] LABS: Add Manual Diff / Slide Review NO; Basophils Percent Auto 0.5 % (0-2); Eosinophils Percent Auto 1.6 % (2-4); Hematocrit 36.7 % (36-46); Hemoglobin 12.5 g/dL (12.0-16.0); Mean Corpuscular HGB Conc 34.1 % (30-36); Mean Corpuscular Hemoglobin 30.2 PG (26-34); Mean Corpuscular Volume 88.8 fL (80-100); Monocytes Percent Auto 10.3 % (3-14); Neutrophils Absolute Auto 4300 /uL (3000-5900); Neutrophils Percent Auto 58.6 % (50-75); Platelet Count 286 X10^3/uL (150-400); Red Blood Cell Count 4.14 X10^6/uL (4.0-5.2); Red Cell Distribution Width 14.4 % (11.6-14.8); White Blood Cell Count 7.4 X10^3/uL (4.5-11.0)
[2018-01-12 06:17] LABS: BUN Creatinine Ratio 14.2 (6-22); Blood Urea Nitrogen 17 mg/dL (7-17); Calcium 9.3 mg/dL (8.4-10.2); Carbon Dioxide 25 mmol/L (22-32); Chloride 105 mmol/L (98-107); Estimated Glomerular Filt Rate 43.7 mL/min (>60); Glucose 93 mg/dL (80-110); HEMOLYSIS < 15 (0-50); Sodium 141 mmol/L (137-145)
[2018-01-12] MEDS: SODIUM CHLORIDE 0.45% 1,000 ML 100 ML IV ×2 (07:01→16:52)
[2018-01-12] MEDS: ASPIRIN EC 81 MG TABLET PO (08:35)
[2018-01-12] MEDS: buPROPion 75 MG TABLET 150 MG PO ×2 (08:36→21:17)
[2018-01-12] MEDS: CARVEDILOL 3.125 MG TABLET PO ×2 (08:37→21:17)
[2018-01-12] MEDS: DOCUSATE 100 MG CAPSULE PO ×2 (08:38→21:17)
[2018-01-12] MEDS: CHOLECALCIFEROL (VITAMIN D3) 1,000 UNIT TABLET 2000 UNIT PO (08:38)
[2018-01-12] MEDS: DULOXETINE 20 MG CAPSULE PO (08:39)
[2018-01-12] MEDS: ENOXAPARIN 40 MG/0.4 ML SYRINGE SUBCUT (08:39)
[2018-01-12] MEDS: PANTOPRAZOLE 20 MG TABLET PO ×2 (08:40→21:18)
[2018-01-12] MEDS: SPIRONOLACTONE 25 MG TABLET 12.5 MG PO (08:40)
[2018-01-12] MEDS: TIMOLOL 0.25% OPHTH 1 DROPS EYE-BOTH (08:41)
[2018-01-12] MEDS: HYDROMORPHONE 2 MG INJ 0.5 MG IV (10:07)
--- NOTE | 2018-01-12 11:50 | PT.IIE ---
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 Activities of Daily Living and IADL's Independent Prior Functional Level (Other details) Has had several falls in the past including one about 6 - 8 weeks ago with a fracture of her right hip - ORIF, WBAT. The day of admit through the ER she had gone to play pool at the [employer] and then to the grocery store. This was her first time out since her fractured hip and she feels she over did it as it felt like her left leg went out when bringing groceries in. Social History Household Members none Living Arrangements House Number of Floors (Floors) One Floor Number of Stairs To Enter/Railing? None Home Environment Standard Height Toilet Home Equipment Front Wheel Walker Four Wheel Walker Straight Cane Tub Transfer Bench Grab Bars In Shower Employment Status Retired Additional Social History Comment Plays pool at the [employer] on girls day each week prior to fall. Likes to play bingo as well, still driving. M2 PT-IP Current Condition Start: 01/12/18 11:10 Freq: NEEDED Status: Active Protocol: Document 01/12/18 09:30 IJS (Rec: 01/12/18 11:50 [facility] [id number]) Physical Therapy Current Condition Current Condition Evaluation Date 11/10/17 Treatment Diagnosis Fractured ribs, mobility disturbance Onset Date 11/09/17 Precautions Other Precautions Gait belt below 10th rib. Weight Bearing Status Weight Bearing Status Full Weight Bearing M3 PT-IP Subjective Start: 01/12/18 11:10 Freq: NEEDED Status: Active Protocol: Document 01/12/18 09:30 IJS (Rec: 01/12/18 11:50 IJS [id number]) Subjective Physical Therapy Visit Type Type Initial Evaluation Visit Start Time 09:30 Visit Stop Time 09:53 Total Visit Minutes 28 Number of RESEARCH ENVIRONMENTAL SCIENTIST Visits 0 Physical Therapy Visit Comments Patient Comments Willing to get up and move around, needs to go to the bathroom. Waiting for her son to visit and bring her a book . Patient Goals Return home when pain controlled well. Therapy Pain Assessment Pain When Pain Assessed During Mobility Pain Present Pain Present Pain Reported Location Left rib Intensity 8 Description Acute Sharp Pain Behaviors Holding Area Pain Management Techniques Re-positioning Timing of Activity with Medications M4 PT-IP Mobility and Gait Start: 01/12/18 11:10 Freq: NEEDED Status: Active Protocol: Document 01/12/18 09:30 IJS (Rec: 01/12/18 11:50 IJS [id number]) PT-Bed Mobility Assessment Rolling Level of Assist Standby Assistance Supine to Sit Supine to Sit Standby Assistance Scooting Scooting to Edge of Bed Standby Assistance Scooting Up and Down in Bed Standby Assistance PT-Transfer Assessment Sit to and From Stand Sit to and from Stand Standby Assistance Equipment Transfer Assistive Device Gait Belt Front Wheeled Walker Orthotic/Prosthetic Devices or Brace: No Transfers Transfer Destination Chair Transfer Technique Stand Step Pivot Transfer Ability Level of Assist Standby Assistance Comments Mobility Comments Pain at rest 6/10 left rib fractures. After gait/ mobility pain 8/10 at ribs and right hip. Gait Assessment Gait Gait Assistance Required: Standby Assistance Distance (Feet) 140 Able to Maintain Weight Bearing Status Yes During Gait Assistive Devices Assistive Device Gait Belt Front Wheeled Walker Orthotic/Prosthetic Devices or Brace: No Gait Deviations General Gait Pattern Within Normal Limits Comments Gait Comments Slower pace than normal right now. PT-Balance Assessment Sitting Balance and Reactions Static Sitting Balance Ability Normal Dynamic Sitting Balance Ability Normal Standing Balance and Reactions Static Standing Balance Ability Normal Dynamic Standing Balance Ability Good Functional Assessments Functional Tests Tinetti Balance and Gait Assessment moderate fall risk M6 PT-IP Treatment Start: 01/12/18 11:10 Freq: NEEDED Status: Active Protocol: Document 01/12/18 09:30 IJS (Rec: 01/12/18 11:50 IJS [id number]) Physical Therapy Treatment Exercises Exercises Ankle Pumps Shoulder Flexion M7 PT-IP Assessment and Plan Start: 01/12/18 11:10 Freq: NEEDED Status: Active Protocol: Document 01/12/18 09:30 IJS (Rec: 01/12/18 11:50 IJS [id number]) PT Summary Assessment and Plan Potential Rehabilitation Potential Good Status of Condition at Evaluation Stable Summary Impairments Pain Balance Activity Tolerance Goals Bed Mobility Goal Independent Transfer Goal Independent Gait Goal Independent Cane Front Wheel Walker Gait Distance 200 Days to Meet Goals 2 Frequency of Treatment Frequency Of Treatment Once a Day Treatment Plan Physical Therapy Treatment Plan Bed Mobility Training Gait Training Balance Retraining Neuromuscular Re-ed Other Recommendations and Next Treatment Ease with bed mobility, log Focus roll. Some pain medicaton before treatment. Progress with balance and gait training with goal of returning to use of single point cane. Recommendations To Nursing Amount of Assist Needed Standby Assistance Discharge Recommendations PT Discharge Recommendations Home Outpatient PT Other Discharge Recommendations She was scheduled for outpatient PT at [facility] to start today so we cancelled that apt. She was getting home health but thinks she can do the exercises on her own now. Plans to start outpatient PT when she is ready.
--- NOTE | 2018-01-12 12:17 | PT.IIE ---
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 Activities of Daily Living and IADL's Independent Prior Functional Level (Other details) Has had several falls in the past including one about 6 - 8 weeks ago with a fracture of her right hip - ORIF, WBAT. The day of admit through the ER she had gone to play pool at the [employer] and then to the grocery store. This was her first time out since her fractured hip and she feels she over did it as it felt like her left leg went out when bringing groceries in. Social History Household Members none Living Arrangements House Number of Floors (Floors) One Floor Number of Stairs To Enter/Railing? None Home Environment Standard Height Toilet Home Equipment Front Wheel Walker Four Wheel Walker Straight Cane Tub Transfer Bench Grab Bars In Shower Employment Status Retired Additional Social History Comment Plays pool at the [employer] on girls day each week prior to fall. Likes to play bingo as well, still driving. M2 PT-IP Current Condition Start: 01/12/18 11:10 Freq: NEEDED Status: Active Protocol: Document 01/12/18 09:30 IJS (Rec: 01/12/18 11:50 [facility] [id number]) Physical Therapy Current Condition Current Condition Evaluation Date 11/10/17 Treatment Diagnosis Fractured ribs, mobility disturbance Onset Date 11/09/17 Precautions Other Precautions Gait belt below 10th rib. Weight Bearing Status Weight Bearing Status Full Weight Bearing M3 PT-IP Subjective Start: 01/12/18 11:10 Freq: NEEDED Status: Active Protocol: Document 01/12/18 09:30 IJS (Rec: 01/12/18 11:50 IJS [id number]) Subjective Physical Therapy Visit Type Type Initial Evaluation Visit Start Time 09:30 Visit Stop Time 09:53 Total Visit Minutes 28 Number of [employer] AGENT Visits 0 Physical Therapy Visit Comments Patient Comments Willing to get up and move around, needs to go to the bathroom. Waiting for her son to visit and bring her a book . Patient Goals Return home when pain controlled well. Therapy Pain Assessment Pain When Pain Assessed During Mobility Pain Present Pain Present Pain Reported Location Left rib Intensity 8 Description Acute Sharp Pain Behaviors Holding Area Pain Management Techniques Re-positioning Timing of Activity with Medications M4 PT-IP Mobility and Gait Start: 01/12/18 11:10 Freq: NEEDED Status: Active Protocol: Document 01/12/18 09:30 IJS (Rec: 01/12/18 11:50 IJS [id number]) PT-Bed Mobility Assessment Rolling Level of Assist Standby Assistance Supine to Sit Supine to Sit Standby Assistance Scooting Scooting to Edge of Bed Standby Assistance Scooting Up and Down in Bed Standby Assistance PT-Transfer Assessment Sit to and From Stand Sit to and from Stand Standby Assistance Equipment Transfer Assistive Device Gait Belt Front Wheeled Walker Orthotic/Prosthetic Devices or Brace: No Transfers Transfer Destination Chair Transfer Technique Stand Step Pivot Transfer Ability Level of Assist Standby Assistance Comments Mobility Comments Pain at rest 6/10 left rib fractures. After gait/ mobility pain 8/10 at ribs and right hip. Gait Assessment Gait Gait Assistance Required: Standby Assistance Distance (Feet) 140 Able to Maintain Weight Bearing Status Yes During Gait Assistive Devices Assistive Device Gait Belt Front Wheeled Walker Orthotic/Prosthetic Devices or Brace: No Gait Deviations General Gait Pattern Within Normal Limits Comments Gait Comments Slower pace than normal right now. PT-Balance Assessment Sitting Balance and Reactions Static Sitting Balance Ability Normal Dynamic Sitting Balance Ability Normal Standing Balance and Reactions Static Standing Balance Ability Normal Dynamic Standing Balance Ability Good Functional Assessments Functional Tests Tinetti Balance and Gait Assessment moderate fall risk M5 PT-IP Objective Assessments Start: 01/12/18 11:10 Freq: NEEDED Status: Active Protocol: Document 01/12/18 09:30 IJS (Rec: 01/12/18 12:16 IJS [id number]) Orientation Orientation/Cognition Level of Alertness Alert Orientation Name Age Birthday Month Date Year Day of Week Place Situation Language Function Ability No Deficits Noted Gross Range of Motion Upper Extremity ROM Assessment Within Functional Limits Lower Extremity ROM Assessment Within Functional Limits Strength Upper Extremity Strength Assessment Within Functional Limits Lower Extremity Strength Assessment Within Functional Limits Coordination Assessment Gross Coordination Gross Coordination WNL Assessment Finger to Nose Test Normal Performance Pronation/Supination Test Normal Performance Foot Tapping Test Normal Performance Sensation Assessment Sensation Gross Sensation WNL Light Touch Intact Proprioception (Position) Intact Muscle Tone Muscle Tone WNL Yes M6 PT-IP Treatment Start: 01/12/18 11:10 Freq: NEEDED Status: Active Protocol: Document 01/12/18 09:30 IJS (Rec: 01/12/18 11:50 IJS [id number]) Physical Therapy Treatment Exercises Exercises Ankle Pumps Shoulder Flexion M7 PT-IP Assessment and Plan Start: 01/12/18 11:10 Freq: NEEDED Status: Active Protocol: Document 01/12/18 09:30 IJS (Rec: 01/12/18 11:50 IJS [id number]) PT Summary Assessment and Plan Potential Rehabilitation Potential Good Status of Condition at Evaluation Stable Summary Impairments Pain Balance Activity Tolerance Goals Bed Mobility Goal Independent Transfer Goal Independent Gait Goal Independent Cane Front Wheel Walker Gait Distance 200 Days to Meet Goals 2 Frequency of Treatment Frequency Of Treatment Once a Day Treatment Plan Physical Therapy Treatment Plan Bed Mobility Training Gait Training Balance Retraining Neuromuscular Re-ed Other Recommendations and Next Treatment Ease with bed mobility, log Focus roll. Some pain medicaton before treatment. Progress with balance and gait training with goal of returning to use of single point cane. Recommendations To Nursing Amount of Assist Needed Standby Assistance Discharge Recommendations PT Discharge Recommendations Home Outpatient PT Other Discharge Recommendations She was scheduled for outpatient PT at [place] to start today so we cancelled that apt. She was getting home health but thinks she can do the exercises on her own now. Plans to start outpatient PT when she is ready.
--- NOTE | 2018-01-12 16:02 | OT.IP.EVAL ---
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 Activities of Daily Living and IADL's Independent Prior Functional Level (Other details) Has had several falls in the past including one about 6 - 8 weeks ago with a fracture of her right hip - ORIF, WBAT. The day of admit through the ER she had gone to play pool at the [employer] and then to the grocery store. This was her first time out since her fractured hip and she feels she over did it as it felt like her left leg went out when bringing groceries in. Social History Household Members none Living Arrangements House Number of Floors (Floors) One Floor Number of Stairs To Enter/Railing? None Home Environment Standard Height Toilet Home Equipment Front Wheel Walker Four Wheel Walker Straight Cane Tub Transfer Bench Grab Bars In Shower Employment Status Retired Additional Social History Comment Plays pool at the [employer] on girls day each week prior to fall. Likes to play bingo as well, still driving. M1 PT/OT-IP Prior Functional Status Start: 01/12/18 15:40 Freq: NEEDED Status: Active Protocol: Document 01/12/18 15:41 [facility] (Rec: 01/12/18 16:02 [facility] [id number]) Medical Review Prior Functional Status Medical History Reviewed Yes Communication No deficits noted Mobility and Gait Independent with single point cane. Activities of Daily Living and IADL's Independent Prior Functional Level (Other details) Has had several falls in the past including one about 6 - 8 weeks ago with a fracture of her right hip - ORIF, WBAT. The day of admit through the ER she had gone to play pool at the [employer] [place] and then to the grocery store. This was her first time out since her fractured hip and she feels she over did it as it felt like her left leg went out when bringing groceries in. Social History Household Members none Living Arrangements House Number of Floors (Floors) One Floor Number of Stairs To Enter/Railing? None Home Environment Standard Height Toilet Home Equipment Front Wheel Walker Four Wheel Walker Straight Cane Tub Transfer Bench Grab Bars In Shower Employment Status Retired Additional Social History Comment Plays pool at the [facility] on girls day each week prior to fall. Likes to play bingo as well, still driving. M2 OT-IP Current Condition Start: 01/12/18 15:40 Freq: Status: Active Protocol: Document 01/12/18 15:41 [facility] (Rec: 01/12/18 16:02 [facility] [id number]) Occupational Therapy Current Condition Current Condition Evaluation Date 01/12/18 Treatment Diagnosis Rib fx 8,9,10 Diagnosis Onset Date 01/11/18 Post Operative Precautions Other Precautions Gait belt below 10th rib. Weight Bearing Status Weight Bearing Status Full Weight Bearing M3 OT- IP Subjective and Pain Start: 01/12/18 15:40 Freq: Status: Active Protocol: Document 01/12/18 15:41 [facility] (Rec: 01/12/18 16:02 [facility] [id number]) OT- Subjective Occupational Therapy Visit Type Type Initial Evaluation Visit Start Time 15:00 Visit Stop Time 15:35 Total Visit Minutes 35 Occupational Therapy Visit Comments Patient/Caregiver Goals Pt states would like to do short skilled rehab prior to going home. 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 OT Pain Assessment Pain When Pain Assessed At Rest Pain Present Pain Present Pain Reported Location Left rib Intensity 7 Scale Used Numeric (1 - 10) Description Radiating Pain Behaviors Calling Out Facial Grimacing Wincing Management Techniques Re-positioning Timing of Activity with Medications M4 OT- IP ADL's Start: 01/12/18 15:40 Freq: Status: Active Protocol: Document 01/12/18 15:41 [facility] (Rec: 01/12/18 16:02 [facility] [id number]) OT ADL-Grooming General Evaluation Grooming Ability Standby Assistance Areas Needing Assistance Retrieving/Set-up of Grooming Items Comments OT Grooming Comments SBA with FWW at sink and vc to keep FWW in front of her at all times. OT ADL-Oral Care General Eval Oral Care Ability Independent OT ADL-Dressing General Eval Lower Body Dressing Ability Maximum Assistance Comments OT Dressing Comments MAX A at this time due to pain and not able to bend down to do LB dressing needs of socks and shoes. OT ADL-Toileting General Evaluation Toileting Ability Standby Assistance Minimal Assistance Areas Needing Assistance Manage Clothing Perform Perineal Hygiene Comments OT Toileting Comments CGA for balance while standing and would benefit from completeness for hygiene as pt has pain while trying to wipe . Pt has RTS at home. M5 OT- IP IADL's Start: 01/12/18 15:40 Freq: Status: Active Protocol: Document 01/12/18 15:41 [facility] (Rec: 01/12/18 16:02 [facility] [id number]) OT-Instrumental Activities of Daily Living Medication Management Medication Management Comments Pt states just started using pill organizer to assist with her independence. M6 OT- IP Functional Cognition Start: 01/12/18 15:40 Freq: Status: Active Protocol: Document 01/12/18 15:41 [facility] (Rec: 01/12/18 16:02 [facility] [id number]) Cognitive Factors Limiting Selfcare Function Cognitive Ability Level of Alertness Alert Patient Orientation Name Place Situation Attention Span Ability Capable of Focused Attention Capable of Sustained Attention Ability to Follow Commands Able to Follow Multi-Step Commands Safety Awareness Underestimates Need for Assistance Cognitive Comments Cognitive Assessment Comments Pt a bit impulsive and needing vc to use FWW at all times, have the FWW in front of her, FWW safety, and getting all the way turned around before sitting down. M7 OT- IP Mobility and Balance Start: 01/12/18 15:40 Freq: Status: Active Protocol: Document 01/12/18 15:41 [facility] (Rec: 01/12/18 16:02 [facility] [id number]) OT- Bed Mobility Assessment Rolling Type of Rolling Roll to Right Level of Assistance Standby Assistance Supine to Sit Supine to Sit Assist Standby Assistance Head of Bed Elevated Sit to Supine Sit to Supine Assist Standby Assistance Head of Bed Elevated Scooting Scooting to Edge of Bed Standby Assistance Scooting Up and Down in Bed Standby Assistance OT-Transfer Assessment Sit to and From Stand Sit to and from Stand Standby Assistance Transfers Transfer Ability Standby Assistance Contact Guard Assistance Technique Transfer Destination Bed Toilet Transfer Technique Stand Step Pivot Devices Transfer Assistive Devices Gait Belt Front Wheeled Walker Comments Mobility Comments Pt tends to lean to left side while walking with FWW and needs occasional CGA for balance and assist for IV pole management. OT- Balance Assessment Sitting Balance and Reactions Static Sitting Balance Ability Normal Dynamic Sitting Balance Ability Good Standing Balance and Reactions Static Standing Balance Ability Fair M8 OT- IP Objective Assessments Start: 01/12/18 15:40 Freq: Status: Active Protocol: Document 01/12/18 15:41 [facility] (Rec: 01/12/18 16:02 [facility] [id number]) OT Gross Range of Motion Upper Extremity Range of Motion ROM Impairments Grossly WFL. OT Strength Comments Strength Comments WFL for needs, not formally tested due to rib pain at least 4-/5. OT- Coordination Assessment Comments Coordination Comments Pt needing assist for FMS to open small items/objects. M9 OT- IP Assessment and Plan Start: 01/12/18 15:40 Freq: Status: Active Protocol: Document 01/12/18 15:41 [facility] (Rec: 01/12/18 16:02 [facility] [id number]) OT Summary Assessment and Plan Potential Rehabilitation Potential Excellent Analytic Complexity at Evaluation Low Summary OT Impairments Pain Strength Balance Coordination Functional Mobility Dressing Toileting Bathing Toilet Transfers Shower Transfers Progress Towards Goals Slow Progress due to Pain Assessment Summary Pt low complexity and main barrier is pain, and now needing assist for LB dressing needs due to pain and would benefit from skilled rehab prior to going home. Goals Grooming Goal Independent Dressing Goal Minimal Assistance Toileting Goal Standby Assistance Bathing Goal Minimal Assistance Toilet Transfer Goal Independent Shower Transfer Goal Contact Guard Assistance Patient/Caregiver Education Goal Demonstrate Energy Conservation and Pacing Days to Meet Goals 5 Frequency of Treatment Frequency Of Treatment Once a Day Treatment Plan OT Treatment Plan ADL Training Functional Cognition Training Functional Mobility Patient/Family Education Discharge Planning Other Treatment Recommendations and Next AED for dressing, shower if Treatment Focus appropriate. Discharge Recommendations OT Discharge Recommendations SNF Rehab
--- NOTE | 2018-01-12 16:08 | CM.DANOTE ---
Discharge Planning/Care Management DCP: assessment: case received, EMR reviewed and met with pt, early this morning for introduction of self and role and than again after her session with OT Niecy. Pt is a 77 year old female who admitted to care of hospitalist team last night. OT and PT are ordered. PayerL Medicare and [employer]. P: now identified as [facility]...expect likely Sunday 01/14 or >. Will be following CM Discharge Assessment Start: 01/12/18 15:50 Freq: Status: Active Protocol: Document 01/12/18 15:50 ITV (Rec: 01/12/18 16:07 ITV [id number]) Discharge Planning Assessment Advance Directives? No History Provided By Patient Medical Record Prior Living Arrangements House Household Members none Type of transporation used prior to Drives own vehicle admit Independent with ADL's Yes Is patient alert and oriented? Yes DME Already Rented / Owned FWW / Walker Cane Comment uses cane since recent R hip fx and surgery with recovery at [facility]. uses 4ww to haul items such as groceries from car to home Patient/Family Preference Group Home Facility Comment FCC/referral: Rk: has pt on pending list for Wednesday if pt stable for same. Barriers to Discharge No Discharge Plan Group Home Facility Referrals Initiated Group Home If patient plan is SNF: Has PASSR been will be done prior to d/c. completed? Comment inpt admission confirmed: 01/11 Medicare Choice List Provided Yes SNF/HH Preference [facility] Has Agency SNF been contacted Yes Comment Rk has referral Whiteboard Updated in Patient Room with Yes name and ext. # of Litigation Support Analyst Review Status In Process Next Review Type Continued Stay Review Discharge Planning/Care Management CM Discharge Assessment Start: 01/12/18 15:50 Freq: Status: Active Protocol: Document 01/12/18 15:50 ITV (Rec: 01/12/18 16:07 ITV [id number]) Discharge Planning Assessment Advance Directives? No History Provided By Patient Medical Record Prior Living Arrangements House Household Members none Type of transporation used prior to Drives own vehicle admit Independent with ADL's Yes Is patient alert and oriented? Yes DME Already Rented / Owned FWW / Walker Cane Comment uses cane since recent R hip fx and surgery with recovery at [facility]. uses 4ww to haul items such as groceries from car to home Patient/Family Preference Group Home Facility Comment FCC/referral: Rk: has pt on pending list for Wednesday if pt stable for same. Barriers to Discharge No Discharge Plan Group Home Facility Referrals Initiated Group Home If patient plan is SNF: Has PASSR been will be done prior to d/c. completed? Comment inpt admission confirmed: 01/11 Medicare Choice List Provided Yes SNF/HH Preference [facility] Has Agency SNF been contacted Yes Comment Rk has referral Whiteboard Updated in Patient Room with Yes name and ext. # of Litigation Support Analyst Review Status In Process Next Review Type Continued Stay Review
--- NOTE | 2018-01-12 19:25 | P.PN_ITS ---
Subjective Date Patient Seen: 01/12/18 Time Patient Seen: 19:16 Interval history: Patient seen at bedside. Complaining of pain in the L rib cage area. Using incentive spirometer with good volumes. No overnight events. Exam Vital Signs (past 8 hours): - 01/12/18 15:35 01/12/18 16:53 Temperature 97.3 F L Pulse Rate 67 Respiratory Rate 18 Blood Pressure 132/73 Pulse Oximetry 99 99 Oxygen Delivery Method Room Air Oxygen Flow Rate 0 Narrative Exam Narrative: General: NAD, AAOx3 HEENT: NC/AT, EOMI, PERRL, Oropharyxn clear neck supple Lungs: clear to auscultation CV: RRR nl Sl S2 2/6 MISSY Chest: L sided bruising ABd: soft non tender non distended Chest: patient guarding right side Ext: no edema Neuro: non focal Psychiatry: no delusions, hallucinations Objective Labs Result Diagrams: 01/12/18 05:31 01/12/18 05:31 Labs: Laboratory Results - last 24 hr 01/11/18 01/12/18 01/12/18 18:35 05:31 05:31 WBC 7.4 RBC 4.14 Hgb 12.5 Hct 36.7 MCV 88.8 MCH 30.2 MCHC 34.1 RDW 14.4 Plt Count 286 Neut % (Auto) 58.6 Lymph % (Auto) 29.0 [place] % (Auto) 10.3 Eos % (Auto) 1.6 L Baso % (Auto) 0.5 Neut # (Auto) 4300 Sodium 141 Potassium 3.0 L Chloride 105 Carbon Dioxide 25 BUN 17 Creatinine 1.20 H Estimated GFR 43.7 L BUN/Creatinine Ratio 14.2 Glucose 93 Calcium 9.3 Troponin I < 0.012 Assessment & Plan Plan: Assessment/Plan Narrative: 77yo F with PMH of HTN, osteoporosis, recent R hip fracture presented to ED s/ p Fall. Found to have multiple L rib fractures 1. Multiple L Rib fractures - Continue incentive spirometry and pain control - Cont Ca, Vit D, bisphosponate 2. Falls - PT/OT on board, will follow up for placement recommendations 3. HTN - Continue Coreg and Spiranolactone 4. Osteoporosis - continue Ca/ Vit D/Bisphosphonate 5. ALOK - Cr 1.20 - Continue IVF .45NS @100cc/hr DNR/DNI Quality VTE Deep Vein Thrombosis/Pulmonary Embolism Present on Admission: No
[2018-01-12] MEDS: POTASSIUM CHLORIDE 40 MEQ in SODIUM CHLORIDE 0.9% 500 ML 130 ML IV (21:17)
[2018-01-12] MEDS: ZONISAMIDE 100 MG CAPSULE PO (21:18)
[2018-01-12] MEDS: CALCIUM CARBONATE 500 MG TAB PO (21:18)
[2018-01-12] MEDS: SIMVASTATIN 20 MG TABLET PO (21:18)
[2018-01-12] MEDS: LATANOPROST 0.005% OPHTH 2.5 ML 1 DROPS EYE-BOTH (21:19)
--- NOTE | 2018-01-12 23:57 | PC.NURSE ---
Addendum entered by Tata Paula R.N. 01/13/18 04:20: Complains of 7/10 left lower, posterior rib cage pain; medicated with Vicodin. Up to bathroom to void. Upon lying down in bed states she feels dizzy but then relates that dizziness when lying down is normal for her and only lasts for about 30 minutes. BP remains elevated at 152/94. Original Note: Patient is alert and oriented. Breath sounds diminished but CTA with RA sat of 95%. HRR but BP remains slightly elevated at 143/87. Denies nausea. BT present and abdomen is soft. Bruising on left posterior lower ribs and right posterior shoulder. States pain at rest is 5/10 but tolerable and last had Vicodin at 2116. Is able to turn self in bed. Ambulates to bathroom with SBA and walker. Fall risk score is high and bed alarm is activated.
[2018-01-13] VITALS (8 sets, daily range): BP systolic 129–152; BP diastolic 82–94; PULSE 73–82; RESP 15–20; TEMP 36.4–37.1; O2SAT 96–98
[2018-01-13] MEDS: HYDROCODONE/ACET 5/325 TABLET 1 TAB PO ×3 (04:13→20:39)
[2018-01-13 05:35] LABS: Add Manual Diff / Slide Review NO; Basophils Percent Auto 0.3 % (0-2); Eosinophils Percent Auto 1.6 % (2-4); Hematocrit 33.6 % (36-46); Hemoglobin 11.6 g/dL (12.0-16.0); Lymphocytes Percent Auto 24.8 % (25-40); Mean Corpuscular HGB Conc 34.6 % (30-36); Mean Corpuscular Hemoglobin 30.7 PG (26-34); Mean Corpuscular Volume 88.5 fL (80-100); Monocytes Percent Auto 10.3 % (3-14); Neutrophils Absolute Auto 4100 /uL (3000-5900); Platelet Count 265 X10^3/uL (150-400); Red Cell Distribution Width 14.2 % (11.6-14.8); White Blood Cell Count 6.4 X10^3/uL (4.5-11.0)
[2018-01-13 05:41] LABS: BUN Creatinine Ratio 13.6 (6-22); Blood Urea Nitrogen 15 mg/dL (7-17); Carbon Dioxide 23 mmol/L (22-32); Chloride 109 mmol/L (98-107); Estimated Glomerular Filt Rate 48.3 mL/min (>60); Glucose 98 mg/dL (80-110); HEMOLYSIS < 15 (0-50); Potassium 3.5 mmol/L (3.4-5.1); Sodium 142 mmol/L (137-145)
[2018-01-13] MEDS: SODIUM CHLORIDE 0.45% 1,000 ML 100 ML IV (06:54)
[2018-01-13] MEDS: buPROPion 75 MG TABLET 150 MG PO ×2 (07:52→20:41)
[2018-01-13] MEDS: ASPIRIN EC 81 MG TABLET PO (07:52)
[2018-01-13] MEDS: CHOLECALCIFEROL (VITAMIN D3) 1,000 UNIT TABLET 2000 UNIT PO (07:53)
[2018-01-13] MEDS: CARVEDILOL 3.125 MG TABLET PO ×2 (07:53→20:41)
[2018-01-13] MEDS: CALCIUM CARBONATE 500 MG TAB PO ×2 (07:53→20:41)
[2018-01-13] MEDS: TIMOLOL 0.25% OPHTH 1 DROPS EYE-BOTH (07:54)
[2018-01-13] MEDS: PANTOPRAZOLE 20 MG TABLET PO ×2 (07:54→20:40)
[2018-01-13] MEDS: DULOXETINE 20 MG CAPSULE PO (07:54)
[2018-01-13] MEDS: SPIRONOLACTONE 25 MG TABLET 12.5 MG PO (07:54)
[2018-01-13] MEDS: ENOXAPARIN 40 MG/0.4 ML SYRINGE SUBCUT (07:54)
--- NOTE | 2018-01-13 09:05 | PT.IPTN ---
Physical Therapy Treatment Note M2 PT-IP Current Condition Start: 01/12/18 11:10 Freq: NEEDED Status: Active Protocol: Document 01/12/18 09:30 IJS (Rec: 01/12/18 11:50 IJS [id number]) Physical Therapy Current Condition Current Condition Evaluation Date 11/10/17 Treatment Diagnosis Fractured ribs, mobility disturbance Onset Date 11/09/17 Precautions Other Precautions Gait belt below 10th rib. Weight Bearing Status Weight Bearing Status Full Weight Bearing M3 PT-IP Subjective Start: 01/12/18 11:10 Freq: NEEDED Status: Active Protocol: Document 01/13/18 08:40 LRN (Rec: 01/13/18 09:13 LRN [id number]) Subjective Physical Therapy Visit Type Type Treatment Note Visit Start Time 08:40 Visit Stop Time 09:04 Total Visit Minutes 24 Number of ELECTRIC MOTOR TESTER ASSEMBLER Visits 0 Physical Therapy Visit Comments Patient Comments Just finished breakfast, willing to walk. States she does not feel safe walking by herself. Patient Goals SNF for rehab because fearful of going home alone,. Therapy Pain Assessment Pain When Pain Assessed During Exercise Pain Present Pain Present Pain Reported Location Left rib Intensity 8 M4 PT-IP Mobility and Gait Start: 01/12/18 11:10 Freq: NEEDED Status: Active Protocol: Document 01/13/18 09:05 LRN (Rec: 01/13/18 09:13 LRN [id number]) PT-Transfer Assessment Sit to and From Stand Sit to and from Stand Standby Assistance Equipment Transfer Assistive Device Front Wheeled Walker Orthotic/Prosthetic Devices or Brace: No Comments Mobility Comments Pain at rest 6/10 left rib fractures. After gait/ mobility pain 8/10 at ribs. Gait Assessment Gait Gait Assistance Required: Independent Standby Assistance Distance (Feet) 100 Able to Maintain Weight Bearing Status Yes During Gait Assistive Devices Assistive Device Gait Belt Front Wheeled Walker Orthotic/Prosthetic Devices or Brace: No M5 PT-IP Objective Assessments Start: 01/12/18 11:10 Freq: NEEDED Status: Active Protocol: Document 01/12/18 09:30 IJS (Rec: 01/12/18 12:16 IJS [id number]) Orientation Orientation/Cognition Level of Alertness Alert Orientation Name Age Birthday Month Date Year Day of Week Place Situation Language Function Ability No Deficits Noted Gross Range of Motion Upper Extremity ROM Assessment Within Functional Limits Lower Extremity ROM Assessment Within Functional Limits Strength Upper Extremity Strength Assessment Within Functional Limits Lower Extremity Strength Assessment Within Functional Limits Coordination Assessment Gross Coordination Gross Coordination WNL Assessment Finger to Nose Test Normal Performance Pronation/Supination Test Normal Performance Foot Tapping Test Normal Performance Sensation Assessment Sensation Gross Sensation WNL Light Touch Intact Proprioception (Position) Intact Muscle Tone Muscle Tone WNL Yes M6 PT-IP Treatment Start: 01/12/18 11:10 Freq: NEEDED Status: Active Protocol: Document 01/13/18 08:40 LRN (Rec: 01/13/18 09:13 LRN [id number]) Physical Therapy Treatment Exercises Exercises Shoulder Flexion Elbow Flexion/Extension Other Treatments Other Treatment Performed Shoulder AB with elbow flexed. M7 PT-IP Assessment and Plan Start: 01/12/18 11:10 Freq: NEEDED Status: Active Protocol: Document 01/13/18 08:40 LRN (Rec: 01/13/18 10:31 LRN [id number]) PT Summary Assessment and Plan Frequency of Treatment Frequency Of Treatment Once a Day Treatment Plan Physical Therapy Treatment Plan Bed Mobility Training Gait Training Balance Retraining Neuromuscular Re-ed Other Recommendations and Next Treatment Ease with bed mobility, log Focus roll. Some pain medicaton before treatment. Progress with balance and gait training with goal of returning to use of single point cane. Recommendations To Nursing Amount of Assist Needed Standby Assistance Discharge Recommendations PT Discharge Recommendations SNF Rehab Other Discharge Recommendations Outpatient physical therapy when appropriate.
--- NOTE | 2018-01-13 11:05 | PC.NURSE ---
Patient without complaints today. SHowered with OT assistance. Ambulating with walker and min assist for safety. Denies pain at rest, up in chair with call light within reach. Continue to follow.
--- NOTE | 2018-01-13 11:09 | OT.IP.TRT ---
Occupational Therapy Treatment Note M2 OT-IP Current Condition Start: 01/12/18 15:40 Freq: Status: Active Protocol: Document 01/12/18 15:41 [facility] (Rec: 01/12/18 16:02 [facility] [id number]) Occupational Therapy Current Condition Current Condition Evaluation Date 01/12/18 Treatment Diagnosis Rib fx 8,9,10 Diagnosis Onset Date 01/11/18 Post Operative Precautions Other Precautions Gait belt below 10th rib. Weight Bearing Status Weight Bearing Status Full Weight Bearing M3 OT- IP Subjective and Pain Start: 01/12/18 15:40 Freq: Status: Active Protocol: Document 01/13/18 10:56 [facility] (Rec: 01/13/18 11:09 [facility] [id number]) OT- Subjective Occupational Therapy Visit Type Type Treatment Note Visit Start Time 10:00 Visit Stop Time 10:45 Total Visit Minutes 45 Occupational Therapy Visit Comments Patient/Caregiver Goals Pt wanting to shower. OT Pain Assessment Pain When Pain Assessed During Mobility Pain Present Pain Present Pain Reported Location Left rib Intensity 9 Scale Used Numeric (1 - 10) Description Radiating Pain Behaviors Calling Out Facial Grimacing Management Techniques Re-positioning Timing of Activity with Medications M4 OT- IP ADL's Start: 01/12/18 15:40 Freq: Status: Active Protocol: Document 01/13/18 10:56 [facility] (Rec: 01/13/18 11:09 [facility] [id number]) OT ADL-Dressing General Eval Lower Body Dressing Ability Moderate Assistance Areas Needing Assistance Underpants/Brief Socks Comments OT Dressing Comments Due to pain by reaching down to her feet, pt needing assist for LB dressing. OT ADL-Toileting General Evaluation Toileting Ability Standby Assistance Comments OT Toileting Comments SBA today and able to reach better for pericare needs. OT ADL-Bathing Bathing Type Bathing Type Shower General Evaluation Bathing Ability Moderate Assistance Areas Needing Assistance Wash/Dry Back Wash/Dry Lower Extremities Devices Bathing Equipment Hand Held Shower Sprayer Shower Chair with Arms Grab Bars Comments OT Bathing Comments Due to pain from her ribs, needing RASHEED for LE, back, and assist to wash her hair. M5 OT- IP IADL's Start: 01/12/18 15:40 Freq: Status: Active Protocol: Document 01/12/18 15:41 [facility] (Rec: 01/12/18 16:02 [facility] [id number]) OT-Instrumental Activities of Daily Living Medication Management Medication Management Comments Pt states just started using pill organizer to assist with her independence. M6 OT- IP Functional Cognition Start: 01/12/18 15:40 Freq: Status: Active Protocol: Document 01/13/18 10:56 [facility] (Rec: 01/13/18 11:09 [facility] [id number]) Cognitive Factors Limiting Selfcare Function Cognitive Ability Level of Alertness Alert Patient Orientation Name Place Situation Attention Span Ability Capable of Focused Attention Capable of Sustained Attention Ability to Follow Commands Able to Follow Multi-Step Commands Memory Description No Deficits Noted Safety Awareness Underestimates Need for Assistance M7 OT- IP Mobility and Balance Start: 01/12/18 15:40 Freq: Status: Active Protocol: Document 01/13/18 10:56 [facility] (Rec: 01/13/18 11:09 [facility] [id number]) OT-Transfer Assessment Sit to and From Stand Sit to and from Stand Standby Assistance Transfers Transfer Ability Standby Assistance Technique Transfer Destination Chair Shower Stall Toilet Transfer Technique Stand Step Pivot Devices Transfer Assistive Devices Gait Belt Front Wheeled Walker Comments Mobility Comments Pt moving better today and attempted sojme walking without device and was SBA to CGA as a little unsteady on her fett and needing to shuffle her feet versus picking them all the way up. OT- Balance Assessment Sitting Balance and Reactions Static Sitting Balance Ability Normal Dynamic Sitting Balance Ability Normal Standing Balance and Reactions Static Standing Balance Ability Good Dynamic Standing Balance Ability Fair M8 OT- IP Objective Assessments Start: 01/12/18 15:40 Freq: Status: Active Protocol: Document 01/12/18 15:41 [facility] (Rec: 01/12/18 16:02 [facility] [id number]) OT Gross Range of Motion Upper Extremity Range of Motion ROM Impairments Grossly WFL. OT Strength Comments Strength Comments WFL for needs, not formally tested due to rib pain at least 4-/5. OT- Coordination Assessment Comments Coordination Comments Pt needing assist for FMS to open small items/objects. M9 OT- IP Assessment and Plan Start: 01/12/18 15:40 Freq: Status: Active Protocol: Document 01/13/18 10:56 [facility] (Rec: 01/13/18 11:09 [facility] [id number]) OT Summary Assessment and Plan Potential Rehabilitation Potential Excellent Analytic Complexity at Evaluation Low Summary OT Impairments Pain Strength Balance Functional Mobility Dressing Bathing Shower Transfers Progress Towards Goals Progressing Toward Goals Assessment Summary Pt doing better with ADL's however still needing assist for ADl's due to pain and would benefit from skilled rehab to work on increasing overall strength, endurance, and balance needs. Goals Dressing Goal Minimal Assistance Bathing Goal Minimal Assistance Patient/Caregiver Education Goal Demonstrate Energy Conservation and Pacing Days to Meet Goals 2 Frequency of Treatment Frequency Of Treatment Once a Day Treatment Plan OT Treatment Plan ADL Training Functional Cognition Training Functional Mobility Patient/Family Education Discharge Planning Other Treatment Recommendations and Next Go over fall prevention Treatment Focus information. Discharge Recommendations OT Discharge Recommendations SNF Rehab
--- NOTE | 2018-01-13 12:03 | CM.DPC ---
Addendum entered by Jeannine Perez LPN 01/13/18 12:27: Spoke with pt re transport. She advised to call her son Gumaro who wanted to help in any way her could. Called his cell [phone]. He notes he is happy to transport her by car and help her settle into the facility. Agreed to call him tomorrow when have a firmer idea of the d/c time. Will update pt. Original Note: DCP: continued: Met with pt again after morning Team Rounds. KUSHAL Mena reported that pt now wanted to go home and not to snf setting. Pt expressed surprise re this, said that she saw PT Priya this morning (those notes are not yet in) and that Priya was encouraging re the snf plan. I still very much want to go to [facility] for rehab. I do not feel that I am ready to go to my home with these rib fractures.. Left Vm for [facility]. Plan for a d/c tomorrow. Transport discussed: If [facility] van is unavailable pt's son Gumaro would be able to drive her. staff to assist pt into car and [facility] staff assist out of car. Confirmed with multimedia project manager Treasure that this was acceptable as long as ok on [facility] end. Spoke with [facility]. She confirms above transport plan is appropriate as long as staff insure that pt is escorted to the car and assisted into in on side. She notes van is likely not available. P: [facility] tomorrow if stable for same. Will do PASRR prior to the d/c.
--- NOTE | 2018-01-13 15:14 | PM.PN.1 ---
Subjective Date Patient Seen: 01/13/18 Time Patient Seen: 15:15 Interval history: Patient seen at bedside. Still has a little bit of pain in the L side of the chest. No overnight events. Pending placement. Exam Vital Signs (past 8 hours): - 01/13/18 07:45 01/13/18 07:53 01/13/18 12:00 Temperature 98.1 F 98.0 F Pulse Rate 80 80 73 Respiratory Rate 16 16 Blood Pressure 136/88 136/88 129/87 Pulse Oximetry 96 98 Oxygen Delivery Method Room Air Oxygen Flow Rate 0 Narrative Exam Narrative: General: NAD, AAOx3 HEENT: NC/AT, EOMI, PERRL, Oropharyxn clear neck supple Lungs: clear to auscultation CV: RRR nl Sl S2 2/6 MISSY Chest: L sided bruising ABd: soft non tender non distended Chest: patient guarding right side Ext: no edema Neuro: non focal Psychiatry: no delusions, hallucinations Objective Labs Result Diagrams: 01/13/18 05:18 01/13/18 05:18 Labs: Laboratory Results - last 24 hr 01/13/18 01/13/18 05:18 05:18 WBC 6.4 RBC 3.80 L Hgb 11.6 L Hct 33.6 L MCV 88.5 MCH 30.7 MCHC 34.6 RDW 14.2 Plt Count 265 Neut % (Auto) 63.0 Lymph % (Auto) 24.8 L [place] % (Auto) 10.3 Eos % (Auto) 1.6 L Baso % (Auto) 0.3 Neut # (Auto) 4100 Sodium 142 Potassium 3.5 Chloride 109 H Carbon Dioxide 23 BUN 15 Creatinine 1.10 H Estimated GFR 48.3 L BUN/Creatinine Ratio 13.6 Glucose 98 Calcium 9.0 Assessment & Plan Plan: Assessment/Plan Narrative: 77yo F with PMH of HTN, osteoporosis, recent R hip fracture presented to ED s/p Fall. Found to have multiple L rib fractures 1. Multiple L Rib fractures - Continue incentive spirometry and pain control - Cont Ca, Vit D, bisphosponate 2. Falls - PT/OT on board, will follow up for placement recommendations 3. HTN - Continue Coreg and Spiranolactone 4. Osteoporosis - continue Ca/ Vit D/Bisphosphonate 5. ALOK - Cr 1.20->1.10, improving - Will stop fluids Quality VTE Deep Vein Thrombosis/Pulmonary Embolism Present on Admission: No
[2018-01-13] MEDS: SIMVASTATIN 20 MG TABLET PO (20:40)
[2018-01-13] MEDS: LATANOPROST 0.005% OPHTH 2.5 ML 1 DROPS EYE-BOTH (20:41)
[2018-01-13] MEDS: ZONISAMIDE 100 MG CAPSULE PO (20:41)
--- NOTE | 2018-01-14 00:26 | PC.NURSE ---
0010 Checked pt. to do assessment, but she's sound asleep. Snoring lightly, will monitor & assess when she wakes up.
[2018-01-14 02:30] VITALS: BP 144/83; PULSE 81; RESP 18; TEMP 36.4; O2SAT 94
[2018-01-14] MEDS: HYDROCODONE/ACET 5/325 TABLET 1 TAB PO ×2 (02:38→10:02)
[2018-01-14 02:51] VITALS: O2SAT 92
[2018-01-14 05:45] LABS: Add Manual Diff / Slide Review NO; Basophils Percent Auto 0.3 % (0-2); Eosinophils Percent Auto 1.6 % (2-4); Hematocrit 34.2 % (36-46); Hemoglobin 11.7 g/dL (12.0-16.0); Mean Corpuscular HGB Conc 34.4 % (30-36); Mean Corpuscular Hemoglobin 30.3 PG (26-34); Neutrophils Absolute Auto 3300 /uL (3000-5900); Neutrophils Percent Auto 52.1 % (50-75); Platelet Count 273 X10^3/uL (150-400); Red Blood Cell Count 3.88 X10^6/uL (4.0-5.2); Red Cell Distribution Width 14.6 % (11.6-14.8); White Blood Cell Count 6.3 X10^3/uL (4.5-11.0)
[2018-01-14 06:01] LABS: Blood Urea Nitrogen 12 mg/dL (7-17); Calcium 9.3 mg/dL (8.4-10.2); Carbon Dioxide 23 mmol/L (22-32); Chloride 109 mmol/L (98-107); Estimated Glomerular Filt Rate 53.9 mL/min (>60); Glucose 107 mg/dL (80-110); HEMOLYSIS < 15 (0-50); Sodium 142 mmol/L (137-145)
[2018-01-14 06:08] VITALS: BP 152/84; PULSE 85; RESP 16; TEMP 36.4; O2SAT 96
[2018-01-14 08:47] VITALS: BP 152/84
[2018-01-14] MEDS: CARVEDILOL 3.125 MG TABLET PO (08:47)
[2018-01-14] MEDS: ASPIRIN EC 81 MG TABLET PO (08:47)
[2018-01-14] MEDS: buPROPion 75 MG TABLET 150 MG PO (08:47)
[2018-01-14] MEDS: POTASSIUM CHLORIDE 20 MEQ TAB 60 MEQ PO (08:47)
[2018-01-14] MEDS: CHOLECALCIFEROL (VITAMIN D3) 1,000 UNIT TABLET 2000 UNIT PO (08:48)
[2018-01-14] MEDS: CALCIUM CARBONATE 500 MG TAB PO (08:48)
[2018-01-14] MEDS: ENOXAPARIN 40 MG/0.4 ML SYRINGE SUBCUT (08:48)
[2018-01-14] MEDS: TIMOLOL 0.25% OPHTH 1 DROPS EYE-BOTH (08:49)
[2018-01-14] MEDS: PANTOPRAZOLE 20 MG TABLET PO (08:49)
[2018-01-14] MEDS: SPIRONOLACTONE 25 MG TABLET 12.5 MG PO (08:49)
[2018-01-14] MEDS: SODIUM CHLORIDE 0.9% FLUSH 10 ML IV (08:49)
[2018-01-14] MEDS: DULOXETINE 20 MG CAPSULE PO (08:50)
[2018-01-14 09:36] VITALS: O2SAT 96
--- NOTE | 2018-01-14 10:19 | PM.DS.1 ---
History of Present Illness Date Patient Seen: 01/14/18 Time Patient Seen: 10:21 Chief complaint: GLF Narrative: 77yo F with PMH of recent R hip fracture, GERD, CHF, HLD, and depression presented to ED s/p fall. Patient was shopping day of the admission and felt her leg giving out. In an attempt to prevent falling on her hip, she fell forward. Patient hit the back of her head. She presented to the ED where she was found to have 3 rib fractures on the right. Her head CT was negative for a bleed. Patient had an Xray of her hip with no evidence of fracture. She had significant pain, splinting, an difficulty breathing. She was admitted to the hospital for further evaluation. Discharge Providers Date of admission: 01/11/18 20:28 Primary care physician: Maryanne Gaviria PA-C Consults: 01/11/18 20:57 Consult to Occupational Therapy Evaluate & Treat Comment: Physician Instructions: Evaluate and treat Consult to Physical Therapy Evaluate & Treat Comment: Physician Instructions: Evaluate and Treat Discharge provider: Paula Poole MD Summary Discharge Diagnosis: L 3 rib fractures Hospital Course: Patient was admitted for pain control and further monitoring. She was assessed by Physical therapy who recommended the patient goes to a subacute rehab facility in to regain her strength. Patient was put on incentive spirometry, where she was able to get good volumes. Her high blood pressure was controlled with home medications Coreg and spironolactone. Her osteoporosis was controlled with calcium vitamin-D and bisphosphonate. Patient initially had ALOK on admission, which resolved with 2 days worth of fluid administration. She was accepted at the downgoing care and will be going there for further rehab. Status at Discharge Functional status at discharge: uses cane/walker Overall status at discharge: patient is progressing back to baseline Time Spent with Patient Less than 30 minutes Exam Vital Signs (past 8 hours): - 01/14/18 02:30 01/14/18 02:51 01/14/18 06:08 Temperature 97.5 F L 97.6 F Pulse Rate 81 85 Respiratory Rate 18 16 Blood Pressure 144/83 H 152/84 H Pulse Oximetry 94 92 96 01/14/18 08:47 01/14/18 09:36 Temperature Pulse Rate Respiratory Rate Blood Pressure 152/84 H Pulse Oximetry 96 Oxygen Delivery Method Room Air Oxygen Flow Rate 0 Narrative Exam Narrative: General: NAD, AAOx3 HEENT: NC/AT, EOMI, PERRL, Oropharyxn clear neck supple Lungs: clear to auscultation CV: RRR nl Sl S2 2/6 MISSY Chest: L sided bruising ABd: soft non tender non distended Chest: patient guarding right side Ext: no edema Neuro: non focal Psychiatry: no delusions, hallucinations Objective Labs Result Diagrams: 01/14/18 05:19 01/14/18 05:19 Labs: Laboratory Results - last 24 hr 01/14/18 01/14/18 05:19 05:19 WBC 6.3 RBC 3.88 L Hgb 11.7 L Hct 34.2 L MCV 88.0 MCH 30.3 MCHC 34.4 RDW 14.6 Plt Count 273 Neut % (Auto) 52.1 Lymph % (Auto) 36.0 [place] % (Auto) 10.0 Eos % (Auto) 1.6 L Baso % (Auto) 0.3 Neut # (Auto) 3300 Sodium 142 Potassium 3.0 L Chloride 109 H Carbon Dioxide 23 BUN 12 Creatinine 1.00 Estimated GFR 53.9 L BUN/Creatinine Ratio 12.0 Glucose 107 Calcium 9.3 Discharge Plan Discharge Plan Transfer to: [facility] I certify the postop hospital care home care is medically necessary on a continuing basis for any conditions for which he/ she received care during this hospitalization.: Yes The receiving facility has agreed to accept transfer and provide medical treatment.: Yes Discharge Med Rec/Prescriptions Prescriptions: New hydrocodone-acetaminophen 5-325 mg Tablet 1 tab PO Q4HR PRN (Reason: Pain, Moderate (4-6)) Qty: 20 RF: 0 Continue melatonin 5 MG tablet 10 mg PO HSP PRN (Reason: Sleep) Qty: 0 RF: 0 spironolactone 25 MG tablet 12.5 mg PO QDAY Qty: 0 RF: 0 simvastatin 20 MG tablet 20 mg PO HS Qty: 0 RF: 0 cholecalciferol (vitamin D3) [Vitamin D3] 2,000 UNIT tablet 1 tab PO QDAY Qty: 0 RF: 0 omega 5-fmx-vej-fish oil [Omera] 1 EACH capsule 1,200 mg PO QDAY Qty: 0 RF: 0 carvedilol [Coreg] 3.125 MG tablet 3.125 mg PO BID Qty: 0 RF: 0 zxejrvd-tettgocsogoje-hrhqccal [Excedrin Extra Strength] 1 EACH tablet 2 tab PO Q6HP PRN (Reason: Pain, Moderate) Qty: 0 RF: 0 timolol maleate 0.5 % drops 1 drp OPHTH BID Qty: 0 RF: 0 latanoprost [Xalatan] 0.005 % drops 1 drp OPHTH HS Qty: 0 RF: 0 cetirizine 10 mg Tablet 10 mg PO DAILY RF: 0 zonisamide 100 mg Capsule 100 mg PO DAILY RF: 0 duloxetine 30 mg Capsule,Delayed Release(Dr/Ec) See Label Instructions .ROUTE .COMPLEX RF: 0 bupropion HCl 150 mg Tablet Extended Release 12 Hr 150 mg PO BID RF: 0 aspirin 81 mg Tablet,Delayed Release (Dr/Ec) 81 mg PO DAILY RF: 0 omeprazole 20 mg Capsule,Delayed Release(Dr/Ec) 20 mg PO BID RF: 0 erenumab-aooe [Aimovig Autoinjector] 70 mg/mL auto-injector 70 mg SUBCUT QMONTH Qty: 1 RF: 0 Discontinued oxycodone-acetaminophen [Percocet] 5-325 mg Tablet 1 tab PO Q12H PRN (Reason: spinal stenosis pain) Qty: 30 RF: 0 Follow up/Referrals: Maryanne Gaviria PA-C [Primary Care Provider] - 1 Week Discharge Orders: Discharge (Order); Ordered 01/14/18 Ordered By: Paula Poole Provider Discharge Instructions Diet: Low-sodium Liquid consistency: Normal/Thin Food texture: Regular [facility] Reason for rehabilitation: Other Rehab type: Physical therapy Discharge Data Primary Care Provider: Maryanne Gaviria Attending Provider: Roz Young Admit Date/Time: 01/11/18 20:28 Quality VTE Deep Vein Thrombosis/Pulmonary Embolism Present on Admission: No
--- NOTE | 2018-01-14 10:27 | P.DS_ITS ---
History of Present Illness Date Patient Seen: 01/14/18 Time Patient Seen: 10:21 Chief complaint: GLF Narrative: 77yo F with PMH of recent R hip fracture, GERD, CHF, HLD, and depression presented to ED s/p fall. Patient was shopping day of the admission and felt her leg giving out. In an attempt to prevent falling on her hip, she fell forward. Patient hit the back of her head. She presented to the ED where she was found to have 3 rib fractures on the right. Her head CT was negative for a bleed. Patient had an Xray of her hip with no evidence of fracture. She had significant pain, splinting, an difficulty breathing. She was admitted to the hospital for further evaluation. Discharge Providers Date of admission: 01/11/18 20:28 Primary care physician: Maryanne Gaviria PA-C Consults: 01/11/18 20:57 Consult to Occupational Therapy Evaluate & Treat Comment: Physician Instructions: Evaluate and treat Consult to Physical Therapy Evaluate & Treat Comment: Physician Instructions: Evaluate and Treat Discharge provider: Paula Poole MD Summary Discharge Diagnosis: L 3 rib fractures Hospital Course: Patient was admitted for pain control and further monitoring. She was assessed by Physical therapy who recommended the patient goes to a subacute rehab facility in to regain her strength. Patient was put on incentive spirometry, where she was able to get good volumes. Her high blood pressure was controlled with home medications Coreg and spironolactone. Her osteoporosis was controlled with calcium vitamin-D and bisphosphonate. Patient initially had ALOK on admission, which resolved with 2 days worth of fluid administration. She was accepted at the downgoing care and will be going there for further rehab. Status at Discharge Functional status at discharge: uses cane/walker Overall status at discharge: patient is progressing back to baseline Time Spent with Patient Less than 30 minutes Exam Vital Signs (past 8 hours): - 01/14/18 02:30 01/14/18 02:51 01/14/18 06:08 Temperature 97.5 F L 97.6 F Pulse Rate 81 85 Respiratory Rate 18 16 Blood Pressure 144/83 H 152/84 H Pulse Oximetry 94 92 96 01/14/18 08:47 01/14/18 09:36 Temperature Pulse Rate Respiratory Rate Blood Pressure 152/84 H Pulse Oximetry 96 Oxygen Delivery Method Room Air Oxygen Flow Rate 0 Narrative Exam Narrative: General: NAD, AAOx3 HEENT: NC/AT, EOMI, PERRL, Oropharyxn clear neck supple Lungs: clear to auscultation CV: RRR nl Sl S2 2/6 MISSY Chest: L sided bruising ABd: soft non tender non distended Chest: patient guarding right side Ext: no edema Neuro: non focal Psychiatry: no delusions, hallucinations Objective Labs Result Diagrams: 01/14/18 05:19 01/14/18 05:19 Labs: Laboratory Results - last 24 hr 01/14/18 01/14/18 05:19 05:19 WBC 6.3 RBC 3.88 L Hgb 11.7 L Hct 34.2 L MCV 88.0 MCH 30.3 MCHC 34.4 RDW 14.6 Plt Count 273 Neut % (Auto) 52.1 Lymph % (Auto) 36.0 [place] % (Auto) 10.0 Eos % (Auto) 1.6 L Baso % (Auto) 0.3 Neut # (Auto) 3300 Sodium 142 Potassium 3.0 L Chloride 109 H Carbon Dioxide 23 BUN 12 Creatinine 1.00 Estimated GFR 53.9 L BUN/Creatinine Ratio 12.0 Glucose 107 Calcium 9.3 Discharge Plan Discharge Plan Transfer to: [facility] I certify the postop hospital jail care is medically necessary on a continuing basis for any conditions for which he/ she received care during this hospitalization.: Yes The receiving facility has agreed to accept transfer and provide medical treatment.: Yes Discharge Med Rec/Prescriptions Prescriptions: New hydrocodone-acetaminophen 5-325 mg Tablet 1 tab PO Q4HR PRN (Reason: Pain, Moderate (4-6)) Qty: 20 RF: 0 Continue melatonin 5 MG tablet 10 mg PO HSP PRN (Reason: Sleep) Qty: 0 RF: 0 spironolactone 25 MG tablet 12.5 mg PO QDAY Qty: 0 RF: 0 simvastatin 20 MG tablet 20 mg PO HS Qty: 0 RF: 0 cholecalciferol (vitamin D3) [Vitamin D3] 2,000 UNIT tablet 1 tab PO QDAY Qty: 0 RF: 0 omega 0-rqu-spk-fish oil [Omera] 1 EACH capsule 1,200 mg PO QDAY Qty: 0 RF: 0 carvedilol [Coreg] 3.125 MG tablet 3.125 mg PO BID Qty: 0 RF: 0 kepojur-bgivoytvoywbi-whmpughc [Excedrin Extra Strength] 1 EACH tablet 2 tab PO Q6HP PRN (Reason: Pain, Moderate) Qty: 0 RF: 0 timolol maleate 0.5 % drops 1 drp OPHTH BID Qty: 0 RF: 0 latanoprost [Xalatan] 0.005 % drops 1 drp OPHTH HS Qty: 0 RF: 0 cetirizine 10 mg Tablet 10 mg PO DAILY RF: 0 zonisamide 100 mg Capsule 100 mg PO DAILY RF: 0 duloxetine 30 mg Capsule,Delayed Release(Dr/Ec) See Label Instructions .ROUTE .COMPLEX RF: 0 bupropion HCl 150 mg Tablet Extended Release 12 Hr 150 mg PO BID RF: 0 aspirin 81 mg Tablet,Delayed Release (Dr/Ec) 81 mg PO DAILY RF: 0 omeprazole 20 mg Capsule,Delayed Release(Dr/Ec) 20 mg PO BID RF: 0 erenumab-aooe [Aimovig Autoinjector] 70 mg/mL auto-injector 70 mg SUBCUT QMONTH Qty: 1 RF: 0 Discontinued oxycodone-acetaminophen [Percocet] 5-325 mg Tablet 1 tab PO Q12H PRN (Reason: spinal stenosis pain) Qty: 30 RF: 0 Follow up/Referrals: Maryanne Gaviria PA-C [Primary Care Provider] - 1 Week Discharge Orders: Discharge (Order); Ordered 01/14/18 Ordered By: Paula Poole Provider Discharge Instructions Diet: Low-sodium Liquid consistency: Normal/Thin Food texture: Regular [facility] Reason for rehabilitation: Other Rehab type: Physical therapy Discharge Data Primary Care Provider: Maryanne Gaviria Attending Provider: Roz Young Admit Date/Time: 01/11/18 20:28 Quality VTE Deep Vein Thrombosis/Pulmonary Embolism Present on Admission: No
--- NOTE | 2018-01-14 11:10 | PC.NURSE ---
Gave report to Lorraine at [facility]. Answered all questions and Pt will be ready for discharge.
--- NOTE | 2018-01-14 11:35 | CM.DPC ---
DCP: continued: Pt now with orders for [facility]. Rk can accept at 1330. Pt's son Gumaro is alerted and will drive pt to the facility as planned. Pt continues to be comfortable with the d/c for today. PASRR completed and faxed to [facility] along with snf orders. YANA Zapien is updated.
--- NOTE | 2018-01-14 11:50 | PT.IPTN ---
Current Diagnoses Multiple fractures of ribs, left side, initial encounter for closed fracture (01/11/18) Physical Therapy Treatment Note M2 PT-IP Current Condition Start: 01/12/18 11:10 Freq: NEEDED Status: Active Protocol: Document 01/12/18 09:30 IJS (Rec: 01/12/18 11:50 IJS [id number]) Physical Therapy Current Condition Current Condition Evaluation Date 11/10/17 Treatment Diagnosis Fractured ribs, mobility disturbance Onset Date 11/09/17 Precautions Other Precautions Gait belt below 10th rib. Weight Bearing Status Weight Bearing Status Full Weight Bearing M3 PT-IP Subjective Start: 01/12/18 11:10 Freq: NEEDED Status: Active Protocol: Document 01/14/18 11:44 LRN (Rec: 01/14/18 11:49 LRN [id number]) Subjective Physical Therapy Visit Type Type Discharge Summary Visit Start Time 11:30 Visit Stop Time 11:35 Total Visit Minutes 5 Notes Pt dressed for DC from hospital. Pt refused PT, I just finished showering and I' m leaving after lunch. Physical Therapy Visit Comments Patient Comments Condition is the same but she feels she is gaining some confidence in her level of independence. Patient Goals SNF for rehab because fearful of going home alone,. M4 PT-IP Mobility and Gait Start: 01/12/18 11:10 Freq: NEEDED Status: Active Protocol: Document 01/13/18 09:05 LRN (Rec: 01/13/18 09:13 LRN [id number]) PT-Transfer Assessment Sit to and From Stand Sit to and from Stand Standby Assistance Equipment Transfer Assistive Device Front Wheeled Walker Orthotic/Prosthetic Devices or Brace: No Comments Mobility Comments Pain at rest 6/10 left rib fractures. After gait/ mobility pain 8/10 at ribs. Gait Assessment Gait Gait Assistance Required: Independent Standby Assistance Distance (Feet) 100 Able to Maintain Weight Bearing Status Yes During Gait Assistive Devices Assistive Device Gait Belt Front Wheeled Walker Orthotic/Prosthetic Devices or Brace: No M5 PT-IP Objective Assessments Start: 01/12/18 11:10 Freq: NEEDED Status: Active Protocol: Document 01/12/18 09:30 IJS (Rec: 01/12/18 12:16 IJS [id number]) Orientation Orientation/Cognition Level of Alertness Alert Orientation Name Age Birthday Month Date Year Day of Week Place Situation Language Function Ability No Deficits Noted Gross Range of Motion Upper Extremity ROM Assessment Within Functional Limits Lower Extremity ROM Assessment Within Functional Limits Strength Upper Extremity Strength Assessment Within Functional Limits Lower Extremity Strength Assessment Within Functional Limits Coordination Assessment Gross Coordination Gross Coordination WNL Assessment Finger to Nose Test Normal Performance Pronation/Supination Test Normal Performance Foot Tapping Test Normal Performance Sensation Assessment Sensation Gross Sensation WNL Light Touch Intact Proprioception (Position) Intact Muscle Tone Muscle Tone WNL Yes M6 PT-IP Treatment Start: 01/12/18 11:10 Freq: NEEDED Status: Active Protocol: Document 01/13/18 08:40 LRN (Rec: 01/13/18 09:13 LRN [id number]) Physical Therapy Treatment Exercises Exercises Shoulder Flexion Elbow Flexion/Extension Other Treatments Other Treatment Performed Shoulder AB with elbow flexed. M7 PT-IP Assessment and Plan Start: 01/12/18 11:10 Freq: NEEDED Status: Active Protocol: Document 01/14/18 11:44 LRN (Rec: 01/14/18 11:49 LRN [id number]) PT Summary Assessment and Plan Summary Assessment Summary Unable to assess, pt chosing to decline therapy due to pending DC from hospital. Discharge Recommendations PT Discharge Recommendations SNF Rehab
--- NOTE | 2018-01-14 13:54 | PC.NURSE ---
Pt out via w/c by RN with Pt's son and all belongings. Pt's son plans to wheel her across the street to [facility] as he does not wish to put her thru getting in and out of the car. Pt's son states he will return the w/c to the er entrance w/c depot.
--- NOTE | 2018-01-14 13:57 | OT.IP.TRT ---
Current Diagnoses Multiple fractures of ribs, left side, initial encounter for closed fracture (01/11/18) Occupational Therapy Treatment Note M2 OT-IP Current Condition Start: 01/12/18 15:40 Freq: Status: Active Protocol: Document 01/12/18 15:41 [facility] (Rec: 01/12/18 16:02 [facility] [id number]) Occupational Therapy Current Condition Current Condition Evaluation Date 01/12/18 Treatment Diagnosis Rib fx 8,9,10 Diagnosis Onset Date 01/11/18 Post Operative Precautions Other Precautions Gait belt below 10th rib. Weight Bearing Status Weight Bearing Status Full Weight Bearing M3 OT- IP Subjective and Pain Start: 01/12/18 15:40 Freq: Status: Active Protocol: Document 01/14/18 13:55 [facility] (Rec: 01/14/18 13:56 [facility] [id number]) OT- Subjective Occupational Therapy Visit Type Type Administrative Note Notes Spoke to pt and pt's son. Son states for the future looking into alternative living arrangement for his mother, apartment, assistive or independent living. Pt going to skilled rehab today.
== END 2018-01-14 13:56 | DRG 543 ==
LOC: ED 19:27 → AC 20:29
PROVIDERS: Internal Medicine; Admitting Provider Internal Medicine; Emergency Provider Internal Medicine; Family Provider Physician Assistant; PCP Physician Assistant; Visit Provider Internal Medicine
DX: M80.00XA Age-related osteoporosis with current pathological fracture, unspecified site, initial encounter for fracture (principal); N17.9 Acute kidney failure, unspecified; S00.93XA Contusion of unspecified part of head, initial encounter; W18.30XA Fall on same level, unspecified, initial encounter; Z91.81 History of falling; I10 Essential (primary) hypertension; R53.1 Weakness; K21.9 Gastro-esophageal reflux disease without esophagitis; E78.5 Hyperlipidemia, unspecified; G89.29 Other chronic pain; G47.33 Obstructive sleep apnea (adult) (pediatric); G47.00 Insomnia, unspecified; F32.9 Major depressive disorder, single episode, unspecified
CPT/HCPCS: 36415; 36591; 70450; 71101; 72125; 73522; 80048; 82550; 84484; 85025; 90471; 90656; 93005; 97161; 97165; 97530; 97535; 99283; 99285; J0897; J1170; J1650; J3480; J7050; Q2038

== ENCOUNTER 2018-01-24 15:10 | Inpatient (IN) | payer MEDICARE, SELFPAY ==
[2018-01-24] VITALS (8 sets, daily range): BP systolic 107–189; BP diastolic 75–117; PULSE 75–91; RESP 14–22; TEMP 36.1–36.6; O2SAT 89–94; BMI 25.8
--- NOTE | 2018-01-24 15:19 | DI.RAD.S_ITS ---
PROCEDURE: XR CHEST 2V INDICATIONS: cough, hypoxia, rib fractures TECHNIQUE: 2 views of the chest were acquired. COMPARISON: [facility], , XR RIBS LT MIN 3V W CXR1V, 01/11/2018, 17:32. [facility], , CHEST 1 VIEW, 10/02/2016, 9:42. [facility], CR, CHEST 1 VIEW, 10/01/2016, 18:06. [facility], , CHEST 2 VIEW, 12/30/2015, 14:59. FINDINGS: Surgical changes and devices: None. Lungs and pleura: No pleural effusions or pneumothorax. Lungs are abnormal with alveolar radiodensity increased across the lung bases bilaterally to the degree that mild or early pneumonia could be present. However, no pleural effusion is seen. The inspiratory volume is reduced. Mediastinum: Mediastinal contours are normal. Heart size is normal. Bones and chest wall: No new suspicious bony abnormalities in addition to the prior left-sided lower lateral rib fractures identified 01/11/18. Soft tissues appear unremarkable. IMPRESSION: Reduced inspiration, bibasilar mild atelectasis or pneumonia. No pleural effusion found. Healing left-sided rib fractures. Dictated by: Michel Royal M.D. on 01/24/2018 at 15:41 Approved by: Michel Royal M.D. on 01/24/2018 at 15:43
--- NOTE | 2018-01-24 15:33 | ED.CHESTPAIN ---
HPI - Chest Pain General Chief Complaint: Chest Pain Stated Complaint: L sided chest pain Time Seen by Provider: 01/24/18 15:14 Source: patient, EMS and old records reviewed Mode of arrival: EMS Limitations: no limitations History of Present Illness HPI narrative: Patient is a 77-year-old female who presents with chest pain as and left rib pain. She was admitted January 11 12/21/2027 for multiple rib fractures as. She now is having increasing pain she throughout the few times yesterday she denies shortness of breath though on room air she is satting 90% with a good waveform. She has no chest pain. She says she has a little bit of a cough but does not feel like she gets anything up Related Data Home Medications Medication Instructions Recorded Confirmed cholecalciferol (vitamin D3) 1 tab PO QDAY #0 05/29/11 01/24/18 [Vitamin D3] simvastatin 20 mg PO HS #0 05/29/11 01/24/18 spironolactone 12.5 mg PO QDAY #0 05/29/11 01/24/18 cqrxkco-askzocwrbxraw-dykhbtnv 2 tab PO Q6HP PRN #0 01/12/17 01/24/18 [Excedrin Extra Strength] carvedilol [Coreg] 3.125 mg PO BID #0 01/12/17 01/24/18 omega 1-uok-pgt-fish oil [Omera] 1,200 mg PO QDAY #0 01/12/17 01/24/18 timolol maleate 1 drp OPHTH BID #0 01/12/17 01/24/18 latanoprost [Xalatan] 1 drp OPHTH HS #0 08/10/17 01/24/18 aspirin 81 mg PO DAILY 11/02/17 01/24/18 bupropion HCl 150 mg PO BID 11/02/17 01/24/18 cetirizine 10 mg PO DAILY 11/02/17 01/24/18 duloxetine 30 mg PO QPM 11/02/17 01/24/18 omeprazole 20 mg PO BID 11/02/17 01/24/18 zonisamide 100 mg PO QPM 11/02/17 01/24/18 bisacodyl 1 - 2 tab PO PRN PRN 01/24/18 01/24/18 bisacodyl 1 supp CA PRN PRN 01/24/18 01/24/18 duloxetine 60 mg PO QAM 01/24/18 01/24/18 hydrocodone-acetaminophen 2 tab PO Q4HR PRN MDD 3000 mg 01/24/18 01/24/18 magnesium hydroxide [Milk of 30 ml PO PRN PRN 01/24/18 01/24/18 Magnesia] melatonin 10 mg PO BEDTIME PRN 01/24/18 01/24/18 ondansetron HCl [Zofran] 4 mg PO Q6H PRN 01/24/18 01/24/18 sodium phosphates [Fleet Enema] 1 supp CA PRN PRN 01/24/18 01/24/18 Previous Rx's Medication Instructions Recorded erenumab-aooe 70 mg/mL 70 mg SUBCUT QMONTH #1 ml 10/28/17 subcutaneous auto-injector Allergies Allergy/AdvReac Type Severity Reaction Status Date / Time No Known Drug Allergies Allergy Verified 01/24/18 15:20 Review of Systems Constitutional Denies chills, Denies fever(s), Denies lethargy and Denies weakness Cardiovascular Reports chest pain (Rib pain), Denies edema, Denies dyspnea, Denies dyspnea on exertion and Denies orthopnea Respiratory Reports cough, Reports pain with cough, Denies dyspnea, Denies dyspnea on exertion and Denies wheezing Gastrointestinal Gastrointestinal: Denies abdominal pain, Denies change in bowel habits, Denies diarrhea, Reports nausea and Reports vomiting Musculoskeletal Reports as per HPI Integumentary/Breasts Denies pruritus, Denies erythema, Denies rash and Denies wounds Neurologic Denies weakness Allergic/Immunologic Denies wheezing [facility] Medical History Age-related osteoporosis without current pathological fracture (Chronic) Aortic aneurysm of unspecified site, without rupture (Chronic) Chronic pain syndrome (Chronic) Essential (primary) hypertension (Chronic) GERD (gastroesophageal reflux disease) (Chronic) Headache (Chronic) Heart failure (Chronic) Hyperglycemia (Chronic) Hyperlipidemia (Chronic) Insomnia (Chronic) Major depressive disorder, recurrent, moderate (Chronic) Mixed hyperlipidemia (Chronic) 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 HEENT: Head atraumatic,EOMI, pupils reactive, face symmetric Chest: Mastectomy left CARDIOVASCULAR: Regular rate and rhythm without murmurs, rubs or gallops. RESPIRATORY: Crackles bilaterally no respiratory distress no paradoxical movement ABDOMEN: Soft, nontender. Normoactive bowel sounds all 4 quadrants. No guarding or rebound. EXTREMITIES: Normal range of motion, no clubbing or edema. Neurovascularly intact NEUROLOGICAL: Alert and oriented x4.Normal gait and speech. Cranial nerves II through XII grossly intact. SKIN: Warm, dry, no laceration, no petechiae, no rashes or lesions. Scores qSOFA Altered Mental Status (GCS <15): No Respiratory rate greater than/equal to 22: No Systolic blood pressure less than or equal to 100: No qSOFA Total: 0 0-1 Not High Risk 1-3 High risk Course Orders Ordered: ED Orders 01/24/18 15:19 XR chest 2V Stat 01/24/18 15:25 B Type Natriuretic Peptide Stat Complete Blood Count AUTO DIFF Stat Comprehensive Metabolic Panel Stat Lactate (Lactic Acid) Stat Procalcitonin Stat Troponin & CK Cardiac Panel Stat 01/24/18 15:50 Blood Culture Stat 01/24/18 16:23 Urinalysis and Microscopic Stat 01/24/18 16:34 CT abdomen pelvis w con Stat 01/24/18 17:39 Consult to General Surgery Stat Sodium Chloride (Normal Saline 0.9%) 1,000 mls @ 150 mls/hr IV CONT AUDELIA Last Admin: 01/24/18 16:04 Dose: 150 mls/hr Vancomycin HCl/Dextrose (Vancomycin) 1,000 mg in 200 mls @ 200 mls/hr IV NOW ONE Stop: 01/24/18 18:52 Last Admin: 01/24/18 18:05 Dose: 200 mls/hr Discontinued Medications Piperacillin/Tazobactam/Dextrose (Zosyn) 3.375 gm in 50 mls @ 100 mls/hr IV NOW ONE Stop: 01/24/18 17:17 Last Infusion: 01/24/18 18:04 Dose: 0 mls/hr Admin: 01/24/18 17:16 Dose: 100 mls/hr Vital Signs - 8 hr 01/24/18 15:10 01/24/18 15:27 01/24/18 15:55 Temperature 97.0 F L Pulse Rate 91 H 91 H 87 Respiratory Rate 22 22 20 Blood Pressure 186/117 H Blood Pressure [Left Arm] 189/101 H 143/89 H Pulse Oximetry 90 L 92 93 01/24/18 18:07 Temperature Pulse Rate 87 Respiratory Rate 14 Blood Pressure Blood Pressure [Left Arm] 142/98 H Pulse Oximetry 92 MDM - Chest Pain Medical Records Data Attestation: I reviewed the patient's medical records. Lab Data Attestation: I reviewed the patient's lab results. Result diagrams: 01/24/18 15:25 01/24/18 15:25 Lab Results 01/24/18 01/24/18 01/24/18 Range/Units 15:25 15:25 15:25 WBC 19.5 H (4.5-11.0) X10^3/uL RBC 4.75 (4.0-5.2) X10^6/uL Hgb 14.3 (12.0-16.0) g/dL Hct 42.2 (36-46) % MCV 88.8 (80-100) fL MCH 30.2 (26-34) PG MCHC 34.0 (30-36) % RDW 14.7 (11.6-14.8) % Plt Count 370 (150-400) X10^3/uL Neut % (Auto) 86.1 H (50-75) % Lymph % (Auto) 8.9 L (25-40) % [place] % (Auto) 4.9 (3-14) % Eos % (Auto) 0.0 L (2-4) % Baso % (Auto) 0.1 (0-2) % Neut # (Auto) 19493 H (6240-7799) /uL Sodium 141 (137-145) mmol/L Potassium 3.3 L (3.4-5.1) mmol/L Chloride 94 L (98-107) mmol/L Carbon Dioxide 30 (22-32) mmol/L BUN 31 H (7-17) mg/dL Creatinine 1.20 H (0.52-1.04) mg/dL Estimated GFR 43.7 L (>60) mL/min BUN/Creatinine Ratio 25.8 H (6-22) Glucose 157 H (80-110) mg/dL Lactate (0.7-2.1) mmol/L Calcium 9.6 (8.4-10.2) mg/dL Total Bilirubin 0.9 (0.2-1.3) mg/dL AST 33 (14-36) IU/L ALT 18 (9-52) IU/L Alkaline Phosphatase 77 (38-126) U/L Total Creatine Kinase < 20 L (30-135) U/L CK-MB (CK-2) TNP CK-MB (CK-2) Rel Index TNP Troponin I 0.013 (0.01-0.034) ng/mL B-Natriuretic Peptide 281.0 H (<100) Total Protein 7.7 (6.3-8.2) g/dL Albumin 4.2 (3.5-5.0) g/dL Globulin 3.5 (1.7-4.1) g/dL Albumin/Globulin Ratio 1.2 (1.0-2.8) Procalcitonin 13.09 H (<0.5) ng/mL 01/24/18 Range/Units 15:25 WBC (4.5-11.0) X10^3/uL RBC (4.0-5.2) X10^6/uL Hgb (12.0-16.0) g/dL Hct (36-46) % MCV (80-100) fL MCH (26-34) PG MCHC (30-36) % RDW (11.6-14.8) % Plt Count (150-400) X10^3/uL Neut % (Auto) (50-75) % Lymph % (Auto) (25-40) % [place] % (Auto) (3-14) % Eos % (Auto) (2-4) % Baso % (Auto) (0-2) % Neut # (Auto) (1849-6633) /uL Sodium (137-145) mmol/L Potassium (3.4-5.1) mmol/L Chloride (98-107) mmol/L Carbon Dioxide (22-32) mmol/L BUN (7-17) mg/dL Creatinine (0.52-1.04) mg/dL Estimated GFR (>60) mL/min BUN/Creatinine Ratio (6-22) Glucose (80-110) mg/dL Lactate 1.6 (0.7-2.1) mmol/L Calcium (8.4-10.2) mg/dL Total Bilirubin (0.2-1.3) mg/dL AST (14-36) IU/L ALT (9-52) IU/L Alkaline Phosphatase (38-126) U/L Total Creatine Kinase (30-135) U/L CK-MB (CK-2) CK-MB (CK-2) Rel Index Troponin I (0.01-0.034) ng/mL B-Natriuretic Peptide (<100) Total Protein (6.3-8.2) g/dL Albumin (3.5-5.0) g/dL Globulin (1.7-4.1) g/dL Albumin/Globulin Ratio (1.0-2.8) Procalcitonin (<0.5) ng/mL Imaging Data Chest x-ray: Radiologist's impression: PROCEDURE: XR CHEST 2V INDICATIONS: cough, hypoxia, rib fractures TECHNIQUE: 2 views of the chest were acquired. COMPARISON: [facility], , XR RIBS LT MIN 3V W CXR1V, 01/11/2018, 17:32. [facility], , CHEST 1 VIEW, 10/02/2016, 9:42. [facility], , CHEST 1 VIEW, 10/01/2016, 18:06. [facility], , CHEST 2 VIEW, 12/30/2015, 14:59. FINDINGS: Surgical changes and devices: None. Lungs and pleura: No pleural effusions or pneumothorax. Lungs are abnormal with alveolar radiodensity increased across the lung bases bilaterally to the degree that mild or early pneumonia could be present. However, no pleural effusion is seen. The inspiratory volume is reduced. Mediastinum: Mediastinal contours are normal. Heart size is normal. Bones and chest wall: No new suspicious bony abnormalities in addition to the prior left-sided lower lateral rib fractures identified 01/11/18. Soft tissues appear unremarkable. IMPRESSION: Reduced inspiration, bibasilar mild atelectasis or pneumonia. No pleural effusion found. Healing left-sided rib fractures. Dictated by: Michel Royal M.D. on 01/24/2018 at 15:41 CT scan - abdomen: Radiologist's impression: PROCEDURE: CT ABDOMEN PELVIS W CON INDICATIONS: Vomiting, fever and abdominal pain TECHNIQUE: After the administration of intravenous contrast, 5 mm thick sections acquired from the diaphragm to the symphysis. 5 mm coronal and sagittal reformats were acquired. For radiation dose reduction, the following was used: automated exposure control, adjustment of mA and/or kV according to patient size. COMPARISON: [facility], CT, ABDOMEN/PELVIS WITH CONTRAST, 12/29/2012, 10:40. FINDINGS: Image quality: Excellent. ABDOMEN: Lung bases: Lung bases are abnormal with what appears to be mild bibasilar pneumonia without effusions, or basilar atelectasis. Heart size is normal. Solid organs: Liver is normal in size and enhancement. Gallbladder has been previously resected. Biliary system is non dilated. Pancreas enhances normally. Spleen is normal in size and enhancement. No adrenal nodules. Kidneys demonstrate normal size and enhancement, without hydronephrosis. Peritoneum and bowel: Small bowel loops demonstrate normal wall thickness but abnormal increased caliber and fluid retention over the upper and mid small bowel. Portions of the distal small bowel are collapsed at the right lower quadrant, and the colon also does not appear distended. An underlying cause is not identified.. No free fluid or air. Nodes and vessels: No retroperitoneal or mesenteric adenopathy by size criteria. Aorta and inferior vena cava are normal in size. Aortobiiliac stent graft appears present. Miscellaneous: No ventral hernias. PELVIS: Genitourinary: Bladder wall thickness is normal. Miscellaneous: No inguinal hernias or adenopathy. Bones: No suspicious bony lesions. No vertebral body compression fractures. IMPRESSION: 1. Prior cholecystectomy. 2. Bibasilar pneumonia versus atelectasis. 3. Small bowel obstruction pattern, leading to distention of the small bowel to the right lower quadrant where collapsed small bowel loops can be seen without a discrete underlying etiology. Small bowel mass or intussusception, or volvulus, in general he is easily detectable by CT scanning and for this reason adhesion either acquired or congenital is the likely cause. 4. Patent biiliac stent graft. Dictated by: Michel Royal M.D. on 01/24/2018 at 17:16 MDM Narrative Medical decision making narrative: Patient has leukocytosis and a significantly elevated procalcitonin. She has crackles in her lungs bilaterally and pneumonia on x-ray. She does continue to feel nauseous is an vomited once in the ED. Decision for abdominal CT. Patient is started on Zosyn and vancomycin for recent hospitalization and hospital-acquired organisms. Abdominal CT does confirm a small bowel obstruction. Head I have called and spoken with Dr. Young who agrees with admission along with Zosyn and vancomycin. I have spoken with Dr. giraldo on surgery in regards to small bowel obstruction. She will be on consult and follow patient. Recommends if patient is still nauseous for an and NG tube Over 1 L out of NG. Patient is feeling better. Discharge Plan Departure Patient Disposition: Admitted As Inpatient Clinical Impression: Pneumonia, SBO (small bowel obstruction) Admit Date/Time: 01/24/18 17:48 Admit Provider: Roz Young
[2018-01-24 15:34] LABS: Add Manual Diff / Slide Review NO; Basophils Percent Auto 0.1 % (0-2); Hematocrit 42.2 % (36-46); Hemoglobin 14.3 g/dL (12.0-16.0); Lymphocytes Percent Auto 8.9 % (25-40); Mean Corpuscular Hemoglobin 30.2 PG (26-34); Mean Corpuscular Volume 88.8 fL (80-100); Monocytes Percent Auto 4.9 % (3-14); Neutrophils Absolute Auto 16800 /uL (3000-5900); Neutrophils Percent Auto 86.1 % (50-75); Platelet Count 370 X10^3/uL (150-400); Red Blood Cell Count 4.75 X10^6/uL (4.0-5.2); Red Cell Distribution Width 14.7 % (11.6-14.8); White Blood Cell Count 19.5 X10^3/uL (4.5-11.0)
--- NOTE | 2018-01-24 15:36 | ED_ITS ---
HPI - Chest Pain General Chief Complaint: Chest Pain Stated Complaint: L sided chest pain Time Seen by Provider: 01/24/18 15:14 Source: patient, EMS and old records reviewed Mode of arrival: EMS Limitations: no limitations History of Present Illness HPI narrative: Patient is a 77-year-old female who presents with chest pain as and left rib pain. She was admitted January 11 12/21/2027 for multiple rib fractures as. She now is having increasing pain she throughout the few times yesterday she denies shortness of breath though on room air she is satting 90% with a good waveform. She has no chest pain. She says she has a little bit of a cough but does not feel like she gets anything up Related Data Home Medications Medication Instructions Recorded Confirmed cholecalciferol (vitamin D3) 1 tab PO QDAY #0 05/29/11 01/24/18 [Vitamin D3] simvastatin 20 mg PO HS #0 05/29/11 01/24/18 spironolactone 12.5 mg PO QDAY #0 05/29/11 01/24/18 uymcksq-mvlfacbmjjhxf-ffohlemc 2 tab PO Q6HP PRN #0 01/12/17 01/24/18 [Excedrin Extra Strength] carvedilol [Coreg] 3.125 mg PO BID #0 01/12/17 01/24/18 omega 0-bcz-cfz-fish oil [Omera] 1,200 mg PO QDAY #0 01/12/17 01/24/18 timolol maleate 1 drp OPHTH BID #0 01/12/17 01/24/18 latanoprost [Xalatan] 1 drp OPHTH HS #0 08/10/17 01/24/18 aspirin 81 mg PO DAILY 11/02/17 01/24/18 bupropion HCl 150 mg PO BID 11/02/17 01/24/18 cetirizine 10 mg PO DAILY 11/02/17 01/24/18 duloxetine 30 mg PO QPM 11/02/17 01/24/18 omeprazole 20 mg PO BID 11/02/17 01/24/18 zonisamide 100 mg PO QPM 11/02/17 01/24/18 bisacodyl 1 - 2 tab PO PRN PRN 01/24/18 01/24/18 bisacodyl 1 supp MS PRN PRN 01/24/18 01/24/18 duloxetine 60 mg PO QAM 01/24/18 01/24/18 hydrocodone-acetaminophen 2 tab PO Q4HR PRN MDD 3000 mg 01/24/18 01/24/18 magnesium hydroxide [Milk of 30 ml PO PRN PRN 01/24/18 01/24/18 Magnesia] melatonin 10 mg PO BEDTIME PRN 01/24/18 01/24/18 ondansetron HCl [Zofran] 4 mg PO Q6H PRN 01/24/18 01/24/18 sodium phosphates [Fleet Enema] 1 supp MS PRN PRN 01/24/18 01/24/18 Previous Rx's Medication Instructions Recorded erenumab-aooe 70 mg/mL 70 mg SUBCUT QMONTH #1 ml 10/28/17 subcutaneous auto-injector Allergies Allergy/AdvReac Type Severity Reaction Status Date / Time No Known Drug Allergies Allergy Verified 01/24/18 15:20 Review of Systems Constitutional Denies chills, Denies fever(s), Denies lethargy and Denies weakness Cardiovascular Reports chest pain (Rib pain), Denies edema, Denies dyspnea, Denies dyspnea on exertion and Denies orthopnea Respiratory Reports cough, Reports pain with cough, Denies dyspnea, Denies dyspnea on exertion and Denies wheezing Gastrointestinal Gastrointestinal: Denies abdominal pain, Denies change in bowel habits, Denies diarrhea, Reports nausea and Reports vomiting Musculoskeletal Reports as per HPI Integumentary/Breasts Denies pruritus, Denies erythema, Denies rash and Denies wounds Neurologic Denies weakness Allergic/Immunologic Denies wheezing [facility] Medical History Age-related osteoporosis without current pathological fracture (Chronic) Aortic aneurysm of unspecified site, without rupture (Chronic) Chronic pain syndrome (Chronic) Essential (primary) hypertension (Chronic) GERD (gastroesophageal reflux disease) (Chronic) Headache (Chronic) Heart failure (Chronic) Hyperglycemia (Chronic) Hyperlipidemia (Chronic) Insomnia (Chronic) Major depressive disorder, recurrent, moderate (Chronic) Mixed hyperlipidemia (Chronic) 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 HEENT: Head atraumatic,EOMI, pupils reactive, face symmetric Chest: Mastectomy left CARDIOVASCULAR: Regular rate and rhythm without murmurs, rubs or gallops. RESPIRATORY: Crackles bilaterally no respiratory distress no paradoxical movement ABDOMEN: Soft, nontender. Normoactive bowel sounds all 4 quadrants. No guarding or rebound. EXTREMITIES: Normal range of motion, no clubbing or edema. Neurovascularly intact NEUROLOGICAL: Alert and oriented x4.Normal gait and speech. Cranial nerves II through XII grossly intact. SKIN: Warm, dry, no laceration, no petechiae, no rashes or lesions. Scores qSOFA Altered Mental Status (GCS <15): No Respiratory rate greater than/equal to 22: No Systolic blood pressure less than or equal to 100: No qSOFA Total: 0 0-1 Not High Risk 1-3 High risk Course Orders Ordered: ED Orders 01/24/18 15:19 XR chest 2V Stat 01/24/18 15:25 B Type Natriuretic Peptide Stat Complete Blood Count AUTO DIFF Stat Comprehensive Metabolic Panel Stat Lactate (Lactic Acid) Stat Procalcitonin Stat Troponin & CK Cardiac Panel Stat 01/24/18 15:50 Blood Culture Stat 01/24/18 16:23 Urinalysis and Microscopic Stat 01/24/18 16:34 CT abdomen pelvis w con Stat 01/24/18 17:39 Consult to General Surgery Stat Sodium Chloride (Normal Saline 0.9%) 1,000 mls @ 150 mls/hr IV CONT AUDELIA Last Admin: 01/24/18 16:04 Dose: 150 mls/hr Vancomycin HCl/Dextrose (Vancomycin) 1,000 mg in 200 mls @ 200 mls/hr IV NOW ONE Stop: 01/24/18 18:52 Last Admin: 01/24/18 18:05 Dose: 200 mls/hr Discontinued Medications Piperacillin/Tazobactam/Dextrose (Zosyn) 3.375 gm in 50 mls @ 100 mls/hr IV NOW ONE Stop: 01/24/18 17:17 Last Infusion: 01/24/18 18:04 Dose: 0 mls/hr Admin: 01/24/18 17:16 Dose: 100 mls/hr Vital Signs - 8 hr 01/24/18 15:10 01/24/18 15:27 01/24/18 15:55 Temperature 97.0 F L Pulse Rate 91 H 91 H 87 Respiratory Rate 22 22 20 Blood Pressure 186/117 H Blood Pressure [Left Arm] 189/101 H 143/89 H Pulse Oximetry 90 L 92 93 01/24/18 18:07 Temperature Pulse Rate 87 Respiratory Rate 14 Blood Pressure Blood Pressure [Left Arm] 142/98 H Pulse Oximetry 92 MDM - Chest Pain Medical Records Data Attestation: I reviewed the patient's medical records. Lab Data Attestation: I reviewed the patient's lab results. Result diagrams: 01/24/18 15:25 01/24/18 15:25 Lab Results 01/24/18 01/24/18 01/24/18 Range/Units 15:25 15:25 15:25 WBC 19.5 H (4.5-11.0) X10^3/uL RBC 4.75 (4.0-5.2) X10^6/uL Hgb 14.3 (12.0-16.0) g/dL Hct 42.2 (36-46) % MCV 88.8 (80-100) fL MCH 30.2 (26-34) PG MCHC 34.0 (30-36) % RDW 14.7 (11.6-14.8) % Plt Count 370 (150-400) X10^3/uL Neut % (Auto) 86.1 H (50-75) % Lymph % (Auto) 8.9 L (25-40) % Jessamine % (Auto) 4.9 (3-14) % Eos % (Auto) 0.0 L (2-4) % Baso % (Auto) 0.1 (0-2) % Neut # (Auto) 66046 H (3916-5264) /uL Sodium 141 (137-145) mmol/L Potassium 3.3 L (3.4-5.1) mmol/L Chloride 94 L (98-107) mmol/L Carbon Dioxide 30 (22-32) mmol/L BUN 31 H (7-17) mg/dL Creatinine 1.20 H (0.52-1.04) mg/dL Estimated GFR 43.7 L (>60) mL/min BUN/Creatinine Ratio 25.8 H (6-22) Glucose 157 H (80-110) mg/dL Lactate (0.7-2.1) mmol/L Calcium 9.6 (8.4-10.2) mg/dL Total Bilirubin 0.9 (0.2-1.3) mg/dL AST 33 (14-36) IU/L ALT 18 (9-52) IU/L Alkaline Phosphatase 77 (38-126) U/L Total Creatine Kinase < 20 L (30-135) U/L CK-MB (CK-2) TNP CK-MB (CK-2) Rel Index TNP Troponin I 0.013 (0.01-0.034) ng/mL B-Natriuretic Peptide 281.0 H (<100) Total Protein 7.7 (6.3-8.2) g/dL Albumin 4.2 (3.5-5.0) g/dL Globulin 3.5 (1.7-4.1) g/dL Albumin/Globulin Ratio 1.2 (1.0-2.8) Procalcitonin 13.09 H (<0.5) ng/mL 01/24/18 Range/Units 15:25 WBC (4.5-11.0) X10^3/uL RBC (4.0-5.2) X10^6/uL Hgb (12.0-16.0) g/dL Hct (36-46) % MCV (80-100) fL MCH (26-34) PG MCHC (30-36) % RDW (11.6-14.8) % Plt Count (150-400) X10^3/uL Neut % (Auto) (50-75) % Lymph % (Auto) (25-40) % Jessamine % (Auto) (3-14) % Eos % (Auto) (2-4) % Baso % (Auto) (0-2) % Neut # (Auto) (1240-2465) /uL Sodium (137-145) mmol/L Potassium (3.4-5.1) mmol/L Chloride (98-107) mmol/L Carbon Dioxide (22-32) mmol/L BUN (7-17) mg/dL Creatinine (0.52-1.04) mg/dL Estimated GFR (>60) mL/min BUN/Creatinine Ratio (6-22) Glucose (80-110) mg/dL Lactate 1.6 (0.7-2.1) mmol/L Calcium (8.4-10.2) mg/dL Total Bilirubin (0.2-1.3) mg/dL AST (14-36) IU/L ALT (9-52) IU/L Alkaline Phosphatase (38-126) U/L Total Creatine Kinase (30-135) U/L CK-MB (CK-2) CK-MB (CK-2) Rel Index Troponin I (0.01-0.034) ng/mL B-Natriuretic Peptide (<100) Total Protein (6.3-8.2) g/dL Albumin (3.5-5.0) g/dL Globulin (1.7-4.1) g/dL Albumin/Globulin Ratio (1.0-2.8) Procalcitonin (<0.5) ng/mL Imaging Data Chest x-ray: Radiologist's impression: PROCEDURE: XR CHEST 2V INDICATIONS: cough, hypoxia, rib fractures TECHNIQUE: 2 views of the chest were acquired. COMPARISON: [facility], , XR RIBS LT MIN 3V W CXR1V, 01/11/2018, 17:32. [facility], , CHEST 1 VIEW, 10/02/2016, 9:42. [facility], , CHEST 1 VIEW , 10/01/2016, 18:06. [facility], , CHEST 2 VIEW, 12/30/2015, 14:59. FINDINGS: Surgical changes and devices: None. Lungs and pleura: No pleural effusions or pneumothorax. Lungs are abnormal with alveolar radiodensity increased across the lung bases bilaterally to the degree that mild or early pneumonia could be present. However, no pleural effusion is seen. The inspiratory volume is reduced. Mediastinum: Mediastinal contours are normal. Heart size is normal. Bones and chest wall: No new suspicious bony abnormalities in addition to the prior left-sided lower lateral rib fractures identified 01/11/18. Soft tissues appear unremarkable. IMPRESSION: Reduced inspiration, bibasilar mild atelectasis or pneumonia. No pleural effusion found. Healing left-sided rib fractures. Dictated by: Michel Royal M.D. on 01/24/2018 at 15:41 CT scan - abdomen: Radiologist's impression: PROCEDURE: CT ABDOMEN PELVIS W CON INDICATIONS: Vomiting, fever and abdominal pain TECHNIQUE: After the administration of intravenous contrast, 5 mm thick sections acquired from the diaphragm to the symphysis. 5 mm coronal and sagittal reformats were acquired. For radiation dose reduction, the following was used: automated exposure control, adjustment of mA and/or kV according to patient size. COMPARISON: [facility], CT, ABDOMEN/PELVIS WITH CONTRAST, 12/29/2012, 10: 40. FINDINGS: Image quality: Excellent. ABDOMEN: Lung bases: Lung bases are abnormal with what appears to be mild bibasilar pneumonia without effusions, or basilar atelectasis. Heart size is normal. Solid organs: Liver is normal in size and enhancement. Gallbladder has been previously resected. Biliary system is non dilated. Pancreas enhances normally. Spleen is normal in size and enhancement. No adrenal nodules. Kidneys demonstrate normal size and enhancement, without hydronephrosis. Peritoneum and bowel: Small bowel loops demonstrate normal wall thickness but abnormal increased caliber and fluid retention over the upper and mid small bowel. Portions of the distal small bowel are collapsed at the right lower quadrant, and the colon also does not appear distended. An underlying cause is not identified.. No free fluid or air. Nodes and vessels: No retroperitoneal or mesenteric adenopathy by size criteria. Aorta and inferior vena cava are normal in size. Aortobiiliac stent graft appears present. Miscellaneous: No ventral hernias. PELVIS: Genitourinary: Bladder wall thickness is normal. Miscellaneous: No inguinal hernias or adenopathy. Bones: No suspicious bony lesions. No vertebral body compression fractures. IMPRESSION: 1. Prior cholecystectomy. 2. Bibasilar pneumonia versus atelectasis. 3. Small bowel obstruction pattern, leading to distention of the small bowel to the right lower quadrant where collapsed small bowel loops can be seen without a discrete underlying etiology. Small bowel mass or intussusception, or volvulus, in general he is easily detectable by CT scanning and for this reason adhesion either acquired or congenital is the likely cause. 4. Patent biiliac stent graft. Dictated by: Michel Royal M.D. on 01/24/2018 at 17:16 MDM Narrative Medical decision making narrative: Patient has leukocytosis and a significantly elevated procalcitonin. She has crackles in her lungs bilaterally and pneumonia on x-ray. She does continue to feel nauseous is an vomited once in the ED. Decision for abdominal CT. Patient is started on Zosyn and vancomycin for recent hospitalization and hospital-acquired organisms. Abdominal CT does confirm a small bowel obstruction. Head I have called and spoken with Dr. Young who agrees with admission along with Zosyn and vancomycin. I have spoken with Dr. giraldo on surgery in regards to small bowel obstruction. She will be on consult and follow patient. Recommends if patient is still nauseous for an and NG tube Over 1 L out of NG. Patient is feeling better. Discharge Plan Departure Patient Disposition: Admitted As Inpatient Clinical Impression: Pneumonia, SBO (small bowel obstruction) Admit Date/Time: 01/24/18 17:48 Admit Provider: Roz Young
[2018-01-24 15:54] LABS: Lactate (Lactic Acid) 1.6 mmol/L (0.7-2.1)
[2018-01-24 15:55] LABS: Alanine Aminotransferase 18 IU/L (9-52); Albumin 4.2 g/dL (3.5-5.0); Albumin Globulin Ratio 1.2 (1.0-2.8); Alkaline Phosphatase 77 U/L (38-126); Aspartate Aminotransferase 33 IU/L (14-36); BUN Creatinine Ratio 25.8 (6-22); Bilirubin Total 0.9 mg/dL (0.2-1.3); Blood Urea Nitrogen 31 mg/dL (7-17); Calcium 9.6 mg/dL (8.4-10.2); Carbon Dioxide 30 mmol/L (22-32); Chloride 94 mmol/L (98-107); Creatine Kinase < 20 U/L (30-135); Estimated Glomerular Filt Rate 43.7 mL/min (>60); Globulin 3.5 g/dL (1.7-4.1); Glucose 157 mg/dL (80-110); HEMOLYSIS < 15 (0-50); Potassium 3.3 mmol/L (3.4-5.1); Sodium 141 mmol/L (137-145); Total Protein 7.7 g/dL (6.3-8.2)
--- NOTE | 2018-01-24 15:57 | PC.NURSE ---
Received zofran 8 mg en route via EMS for nausea / vomiting.
[2018-01-24] MEDS: SODIUM CHLORIDE 0.9% 1,000 ML 150 ML IV ×2 (16:04→23:29)
[2018-01-24 16:06] LABS: Troponin I 0.013 ng/mL (0.01-0.034)
--- NOTE | 2018-01-24 16:34 | DI.CT.S_ITS ---
PROCEDURE: CT ABDOMEN PELVIS W CON INDICATIONS: Vomiting, fever and abdominal pain TECHNIQUE: After the administration of intravenous contrast, 5 mm thick sections acquired from the diaphragm to the symphysis. 5 mm coronal and sagittal reformats were acquired. For radiation dose reduction, the following was used: automated exposure control, adjustment of mA and/or kV according to patient size. COMPARISON: Located [facility], CT, ABDOMEN/PELVIS WITH CONTRAST, 12/29/2012, 10:40. FINDINGS: Image quality: Excellent. ABDOMEN: Lung bases: Lung bases are abnormal with what appears to be mild bibasilar pneumonia without effusions, or basilar atelectasis. Heart size is normal. Solid organs: Liver is normal in size and enhancement. Gallbladder has been previously resected. Biliary system is non dilated. Pancreas enhances normally. Spleen is normal in size and enhancement. No adrenal nodules. Kidneys demonstrate normal size and enhancement, without hydronephrosis. Peritoneum and bowel: Small bowel loops demonstrate normal wall thickness but abnormal increased caliber and fluid retention over the upper and mid small bowel. Portions of the distal small bowel are collapsed at the right lower quadrant, and the colon also does not appear distended. An underlying cause is not identified.. No free fluid or air. Nodes and vessels: No retroperitoneal or mesenteric adenopathy by size criteria. Aorta and inferior vena cava are normal in size. Aortobiiliac stent graft appears present. Miscellaneous: No ventral hernias. PELVIS: Genitourinary: Bladder wall thickness is normal. Miscellaneous: No inguinal hernias or adenopathy. Bones: No suspicious bony lesions. No vertebral body compression fractures. IMPRESSION: 1. Prior cholecystectomy. 2. Bibasilar pneumonia versus atelectasis. 3. Small bowel obstruction pattern, leading to distention of the small bowel to the right lower quadrant where collapsed small bowel loops can be seen without a discrete underlying etiology. Small bowel mass or intussusception, or volvulus, in general he is easily detectable by CT scanning and for this reason adhesion either acquired or congenital is the likely cause. 4. Patent biiliac stent graft. Dictated by: Michel Royal M.D. on 01/24/2018 at 17:16 Approved by: Michel Royal M.D. on 01/24/2018 at 17:20
[2018-01-24 16:40] LABS: Procalcitonin 13.09 ng/mL (<0.5)
[2018-01-24] MEDS: PIPERACILLIN-TAZO 3.375 GM/50 ML FROZ.PIGGY IV ×2 (17:16→23:28)
[2018-01-24] MEDS: VANCOMYCIN 1,000 MG/200 ML FROZ.PIGGY 200 MG IV (18:05)
--- NOTE | 2018-01-24 18:08 | PC.NURSE ---
NGT insertion tolerated well w/ large amount (1000 cc +) of bile / green fluid out. Tube secured w/ nose tape as well as safety pin. Pt states nausea is now resolved. To Low wall intermittent suction.
--- NOTE | 2018-01-24 20:24 | PM.HP.1 ---
History of Present Illness Date Patient Seen: 01/24/18 Chief complaint: L sided chest pain Narrative: Patient is an 77 y/o female who was hospitalized last week following a fall for multiple rib fractures. She was discharged to [facility] where she was well until 2 days prior to admission. Patient reports she developed nausea, vomiting, and abdominal pain. She has been unable to eat for the last 2 days because of the nausea. She felt chilled but had no fever. She had a cough that was non productive. She denies any hemetemesis, bright red blood per rectum or melena. Patient has felt poorly and presented to the hospital for evaluation. Her right lower quadrant pain is dull, does not radiate is not worse with coughing and does not seem to improve with activity. She was evaulated in the Emergency Department with a Chest Xray/ ABD/ Pelvic CT which confirmed bibasilar infiltrates and a small bowel obstruction. The patient had her right kidney removed years ago. She also reports breathing more shallow since her rib fractures from her fall. 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) Sleep apnea (Chronic) Spinal stenosis of lumbar region (Chronic) Vitamin D deficiency (Chronic) History of fracture of right hip (Resolved) Surgical History History of nephrectomy (Acute) Family & Social History Family History Father Cancer Brother Cancer Social History: household members none Prior Living Arrangements Skilled Nurse Facility Safety & Behavioral: Feels Safe in Current Yes Environment Been Physically Hurt or No Threatened By a Person Suicidal Ideation Description None Suicide Plan Description No Plan Tobacco & Substance use: Smoking Status Former smoker alcohol intake current alcohol intake frequency holiday/special occasion Substance Use Type does not use Meds Home Medications Medication Instructions Recorded Confirmed Type cholecalciferol (vitamin D3) 1 tab PO QDAY #0 05/29/11 01/24/18 History [Vitamin D3] simvastatin 20 mg PO HS #0 05/29/11 01/24/18 History spironolactone 12.5 mg PO QDAY #0 05/29/11 01/24/18 History bvsvyfu-unbnrpolqybfk-jqhghbes 2 tab PO Q6HP PRN #0 01/12/17 01/24/18 History [Excedrin Extra Strength] carvedilol [Coreg] 3.125 mg PO BID #0 01/12/17 01/24/18 History omega 5-yeh-spi-fish oil [Omera] 1,200 mg PO QDAY #0 01/12/17 01/24/18 History timolol maleate 1 drp OPHTH BID #0 01/12/17 01/24/18 History latanoprost [Xalatan] 1 drp OPHTH HS #0 08/10/17 01/24/18 History erenumab-aooe 70 mg/mL 70 mg SUBCUT QMONTH #1 ml 10/28/17 01/24/18 Rx subcutaneous auto-injector aspirin 81 mg PO DAILY 11/02/17 01/24/18 History bupropion HCl 150 mg PO BID 11/02/17 01/24/18 History cetirizine 10 mg PO DAILY 11/02/17 01/24/18 History duloxetine 30 mg PO QPM 11/02/17 01/24/18 History omeprazole 20 mg PO BID 11/02/17 01/24/18 History zonisamide 100 mg PO QPM 11/02/17 01/24/18 History bisacodyl 1 - 2 tab PO PRN PRN 01/24/18 01/24/18 History bisacodyl 1 supp NM PRN PRN 01/24/18 01/24/18 History duloxetine 60 mg PO QAM 01/24/18 01/24/18 History hydrocodone-acetaminophen 2 tab PO Q4HR PRN MDD 3000 mg 01/24/18 01/24/18 History magnesium hydroxide [Milk of 30 ml PO PRN PRN 01/24/18 01/24/18 History Magnesia] melatonin 10 mg PO BEDTIME PRN 01/24/18 01/24/18 History ondansetron HCl [Zofran] 4 mg PO Q6H PRN 01/24/18 01/24/18 History sodium phosphates [Fleet Enema] 1 supp NM PRN PRN 01/24/18 01/24/18 History Allergies Allergy/AdvReac Type Severity Reaction Status Date / Time No Known Drug Allergies Allergy Verified 01/24/18 15:20 Review of Systems Review of Systems All systems reviewed & are unremarkable except as noted in HPI and below Exam Vital Signs (past 8 hours): - 01/24/18 15:10 01/24/18 15:27 01/24/18 15:55 Temperature 97.0 F L Pulse Rate 91 H 91 H 87 Respiratory Rate 22 22 20 Blood Pressure 186/117 H Blood Pressure [Left Arm] 189/101 H 143/89 H Pulse Oximetry 90 L 92 93 01/24/18 18:07 01/24/18 18:41 01/24/18 20:13 Temperature 97.7 F Pulse Rate 87 75 85 Respiratory Rate 14 14 20 Blood Pressure 157/86 H Blood Pressure [Left Arm] 142/98 H 107/75 Pulse Oximetry 92 93 94 Oxygen Delivery Method Nasal Cannula Oxygen Flow Rate 2 Narrative Exam Narrative: Ill appearing female who appears mildly uncomfortable HEENT: NC/AT, EOMI, Oropharynx reveals dry mucus membranes, Neck supple, no adenopathy Lungs: bibasilar crackles CV: RRR nl Sl S2 2/6 MISSY ABd: soft/ non distended/ mild right lower quadrant tenderness, no board like rigidity/ no rebound, no palpable masses, well healed midline surgical scar Ext: no edema Skin: no lesion Neuro: non focal Psychiatry: clear coherent, no hallucinations, no delusions Objective Labs Result Diagrams: 01/24/18 15:25 01/24/18 15:25 Labs: Laboratory Results - last 24 hr 01/24/18 01/24/18 01/24/18 15:25 15:25 15:25 WBC 19.5 H RBC 4.75 Hgb 14.3 Hct 42.2 MCV 88.8 MCH 30.2 MCHC 34.0 RDW 14.7 Plt Count 370 Neut % (Auto) 86.1 H Lymph % (Auto) 8.9 L Bath % (Auto) 4.9 Eos % (Auto) 0.0 L Baso % (Auto) 0.1 Neut # (Auto) 25008 H Sodium 141 Potassium 3.3 L Chloride 94 L Carbon Dioxide 30 BUN 31 H Creatinine 1.20 H Estimated GFR 43.7 L BUN/Creatinine Ratio 25.8 H Glucose 157 H Lactate Calcium 9.6 Total Bilirubin 0.9 AST 33 ALT 18 Alkaline Phosphatase 77 Total Creatine Kinase < 20 L CK-MB (CK-2) TNP CK-MB (CK-2) Rel Index TNP Troponin I 0.013 B-Natriuretic Peptide 281.0 H Total Protein 7.7 Albumin 4.2 Globulin 3.5 Albumin/Globulin Ratio 1.2 Procalcitonin 13.09 H 01/24/18 15:25 WBC RBC Hgb Hct MCV MCH MCHC RDW Plt Count Neut % (Auto) Lymph % (Auto) Bath % (Auto) Eos % (Auto) Baso % (Auto) Neut # (Auto) Sodium Potassium Chloride Carbon Dioxide BUN Creatinine Estimated GFR BUN/Creatinine Ratio Glucose Lactate 1.6 Calcium Total Bilirubin AST ALT Alkaline Phosphatase Total Creatine Kinase CK-MB (CK-2) CK-MB (CK-2) Rel Index Troponin I B-Natriuretic Peptide Total Protein Albumin Globulin Albumin/Globulin Ratio Procalcitonin Assessment & Plan (1) History of nephrectomy, unilateral: Problem details: Likely etiology of adhesions Current visit: Yes Status: Acute (2) SBO (small bowel obstruction): Problem details: NPO, NG tube to LIS, follow up KUB 1-2 days Current visit: Yes Status: Acute (3) Pneumonia: Problem details: Agree with Vancomycin and Zosyn given recent hospitalization Qualifiers: Aspiration pneumonia type: Laterality: bilateral Lung location: lower lobe of lung Pneumonia type: due to unspecified organism Qualified Code(s): J18.1 - Lobar pneumonia, unspecified organism Current visit: Yes Status: Acute (4) Multiple fractures of ribs of left side: Problem details: pain control PT/OT consultation Qualifiers: Encounter type: initial encounter Fracture healing: Fracture type: closed Qualified Code(s): S22.42XA - Multiple fractures of ribs, left side, initial encounter for closed fracture Current visit: No Status: Acute (5) Hypertension: Problem details: continue usual medications Current visit: No Status: Chronic (6) Osteoporosis: Problem details: as above Current visit: No Status: Acute (7) Hypokalemia: Problem details: Will replace Current visit: Yes Status: Acute (8) Renal insufficiency, mild: Current visit: Yes Status: Acute (9) Renal insufficiency: Problem details: continue IV hydration and follow up Current visit: Yes Status: Acute
--- NOTE | 2018-01-24 20:35 | P.HP_ITS ---
History of Present Illness Date Patient Seen: 01/24/18 Chief complaint: L sided chest pain Narrative: Patient is an 77 y/o female who was hospitalized last week following a fall for multiple rib fractures. She was discharged to [facility] where she was well until 2 days prior to admission. Patient reports she developed nausea, vomiting, and abdominal pain. She has been unable to eat for the last 2 days because of the nausea. She felt chilled but had no fever. She had a cough that was non productive. She denies any hemetemesis, bright red blood per rectum or melena. Patient has felt poorly and presented to the hospital for evaluation. Her right lower quadrant pain is dull, does not radiate is not worse with coughing and does not seem to improve with activity. She was evaulated in the Emergency Department with a Chest Xray/ ABD/ Pelvic CT which confirmed bibasilar infiltrates and a small bowel obstruction. The patient had her right kidney removed years ago. She also reports breathing more shallow since her rib fractures from her fall. 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) Sleep apnea (Chronic) Spinal stenosis of lumbar region (Chronic) Vitamin D deficiency (Chronic) History of fracture of right hip (Resolved) Surgical History History of nephrectomy (Acute) Family & Social History Family History Father Cancer Brother Cancer Social History: household members none Prior Living Arrangements Skilled Nurse Facility Safety & Behavioral: Feels Safe in Current Yes Environment Been Physically Hurt or No Threatened By a Person Suicidal Ideation Description None Suicide Plan Description No Plan Tobacco & Substance use: Smoking Status Former smoker alcohol intake current alcohol intake frequency holiday/special occasion Substance Use Type does not use Meds Home Medications Medication Instructions Recorded Confirmed Type cholecalciferol (vitamin D3) 1 tab PO QDAY #0 05/29/11 01/24/18 History [Vitamin D3] simvastatin 20 mg PO HS #0 05/29/11 01/24/18 History spironolactone 12.5 mg PO QDAY #0 05/29/11 01/24/18 History zndtata-qplfwvncfgsui-pkwqueoj 2 tab PO Q6HP PRN #0 01/12/17 01/24/18 History [Excedrin Extra Strength] carvedilol [Coreg] 3.125 mg PO BID #0 01/12/17 01/24/18 History omega 2-jzk-ifq-fish oil [Omera] 1,200 mg PO QDAY #0 01/12/17 01/24/18 History timolol maleate 1 drp OPHTH BID #0 01/12/17 01/24/18 History latanoprost [Xalatan] 1 drp OPHTH HS #0 08/10/17 01/24/18 History erenumab-aooe 70 mg/mL 70 mg SUBCUT QMONTH #1 ml 10/28/17 01/24/18 Rx subcutaneous auto-injector aspirin 81 mg PO DAILY 11/02/17 01/24/18 History bupropion HCl 150 mg PO BID 11/02/17 01/24/18 History cetirizine 10 mg PO DAILY 11/02/17 01/24/18 History duloxetine 30 mg PO QPM 11/02/17 01/24/18 History omeprazole 20 mg PO BID 11/02/17 01/24/18 History zonisamide 100 mg PO QPM 11/02/17 01/24/18 History bisacodyl 1 - 2 tab PO PRN PRN 01/24/18 01/24/18 History bisacodyl 1 supp GA PRN PRN 01/24/18 01/24/18 History duloxetine 60 mg PO QAM 01/24/18 01/24/18 History hydrocodone-acetaminophen 2 tab PO Q4HR PRN MDD 3000 mg 01/24/18 01/24/18 History magnesium hydroxide [Milk of 30 ml PO PRN PRN 01/24/18 01/24/18 History Magnesia] melatonin 10 mg PO BEDTIME PRN 01/24/18 01/24/18 History ondansetron HCl [Zofran] 4 mg PO Q6H PRN 01/24/18 01/24/18 History sodium phosphates [Fleet Enema] 1 supp GA PRN PRN 01/24/18 01/24/18 History Allergies Allergy/AdvReac Type Severity Reaction Status Date / Time No Known Drug Allergies Allergy Verified 01/24/18 15:20 Review of Systems Review of Systems All systems reviewed & are unremarkable except as noted in HPI and below Exam Vital Signs (past 8 hours): - 01/24/18 15:10 01/24/18 15:27 01/24/18 15:55 Temperature 97.0 F L Pulse Rate 91 H 91 H 87 Respiratory Rate 22 22 20 Blood Pressure 186/117 H Blood Pressure [Left Arm] 189/101 H 143/89 H Pulse Oximetry 90 L 92 93 01/24/18 18:07 01/24/18 18:41 01/24/18 20:13 Temperature 97.7 F Pulse Rate 87 75 85 Respiratory Rate 14 14 20 Blood Pressure 157/86 H Blood Pressure [Left Arm] 142/98 H 107/75 Pulse Oximetry 92 93 94 Oxygen Delivery Method Nasal Cannula Oxygen Flow Rate 2 Narrative Exam Narrative: Ill appearing female who appears mildly uncomfortable HEENT: NC/AT, EOMI, Oropharynx reveals dry mucus membranes, Neck supple, no adenopathy Lungs: bibasilar crackles CV: RRR nl Sl S2 2/6 MISSY ABd: soft/ non distended/ mild right lower quadrant tenderness, no board like rigidity/ no rebound, no palpable masses, well healed midline surgical scar Ext: no edema Skin: no lesion Neuro: non focal Psychiatry: clear coherent, no hallucinations, no delusions Objective Labs Result Diagrams: 01/24/18 15:25 01/24/18 15:25 Labs: Laboratory Results - last 24 hr 01/24/18 01/24/18 01/24/18 15:25 15:25 15:25 WBC 19.5 H RBC 4.75 Hgb 14.3 Hct 42.2 MCV 88.8 MCH 30.2 MCHC 34.0 RDW 14.7 Plt Count 370 Neut % (Auto) 86.1 H Lymph % (Auto) 8.9 L [place] % (Auto) 4.9 Eos % (Auto) 0.0 L Baso % (Auto) 0.1 Neut # (Auto) 20657 H Sodium 141 Potassium 3.3 L Chloride 94 L Carbon Dioxide 30 BUN 31 H Creatinine 1.20 H Estimated GFR 43.7 L BUN/Creatinine Ratio 25.8 H Glucose 157 H Lactate Calcium 9.6 Total Bilirubin 0.9 AST 33 ALT 18 Alkaline Phosphatase 77 Total Creatine Kinase < 20 L CK-MB (CK-2) TNP CK-MB (CK-2) Rel Index TNP Troponin I 0.013 B-Natriuretic Peptide 281.0 H Total Protein 7.7 Albumin 4.2 Globulin 3.5 Albumin/Globulin Ratio 1.2 Procalcitonin 13.09 H 01/24/18 15:25 WBC RBC Hgb Hct MCV MCH MCHC RDW Plt Count Neut % (Auto) Lymph % (Auto) [place] % (Auto) Eos % (Auto) Baso % (Auto) Neut # (Auto) Sodium Potassium Chloride Carbon Dioxide BUN Creatinine Estimated GFR BUN/Creatinine Ratio Glucose Lactate 1.6 Calcium Total Bilirubin AST ALT Alkaline Phosphatase Total Creatine Kinase CK-MB (CK-2) CK-MB (CK-2) Rel Index Troponin I B-Natriuretic Peptide Total Protein Albumin Globulin Albumin/Globulin Ratio Procalcitonin Assessment & Plan (1) History of nephrectomy, unilateral: Problem details: Likely etiology of adhesions Current visit: Yes Status: Acute (2) SBO (small bowel obstruction): Problem details: NPO, NG tube to LIS, follow up KUB 1-2 days Current visit: Yes Status: Acute (3) Pneumonia: Problem details: Agree with Vancomycin and Zosyn given recent hospitalization Qualifiers: Aspiration pneumonia type: Laterality: bilateral Lung location: lower lobe of lung Pneumonia type: due to unspecified organism Qualified Code( s): J18.1 - Lobar pneumonia, unspecified organism Current visit: Yes Status: Acute (4) Multiple fractures of ribs of left side: Problem details: pain control PT/OT consultation Qualifiers: Encounter type: initial encounter Fracture healing: Fracture type: closed Qualified Code(s): S22.42XA - Multiple fractures of ribs, left side, initial encounter for closed fracture Current visit: No Status: Acute (5) Hypertension: Problem details: continue usual medications Current visit: No Status: Chronic (6) Osteoporosis: Problem details: as above Current visit: No Status: Acute (7) Hypokalemia: Problem details: Will replace Current visit: Yes Status: Acute (8) Renal insufficiency, mild: Current visit: Yes Status: Acute (9) Renal insufficiency: Problem details: continue IV hydration and follow up Current visit: Yes Status: Acute
[2018-01-24] MEDS: LATANOPROST 0.005% OPHTH 2.5 ML 1 DROPS EYE-BOTH (21:13)
[2018-01-24] MEDS: HYDROMORPHONE 1 MG INJ 0.5 MG IV (21:20)
[2018-01-24] MEDS: TIMOLOL 0.25% OPHTH 1 DROPS EYE-BOTH (21:21)
--- NOTE | 2018-01-24 22:07 | PC.NURSE ---
Pt jf GAINES patent. IV fluids infusing via pump as per orders w/o incidence. Pt oriented to room and call system. Med at 2114 w/ Dilaudid w/ good relief. HS CBG 109. Call light w/in reach, bed alarm on for pt safety. Continue w/plan of care.
[2018-01-24 22:57] LABS: Appearance Urine UA SL CLOUDY; Bilirubin Urine UA NEGATIVE (NEGATIVE); Color Urine UA YELLOW; Glucose Urine UA NEGATIVE (Normal); Ketones Urine UA TRACE (NEGATIVE); Leukocyte Esterase Urine UA 1+ (NEGATIVE); Nitrite Urine UA POSITIVE (Negative); Occult Blood Urine UA 1+ (Negative); Protein Urine UA 2+ (Negative); Urobilinogen Urine UA 0.2 E.U./dL (0.2)
[2018-01-24 23:02] LABS: Bacteria Urine Many (>30); Culture Indicated Urine Specimen Cultured; Hyaline Casts Urine 0-1/LPF; RBC Urine 0-1/HPF (0-5/HPF); Squamous Epithelial Cell Urine 1-5 /HPF; WBC Urine 30-100/HPF (0-5/HPF)
[2018-01-25] VITALS (14 sets, daily range): BP systolic 111–142; BP diastolic 73–97; PULSE 80–91; RESP 16–19; TEMP 35.7–37.2; O2SAT 88–96
[2018-01-25] MEDS: HYDROMORPHONE 1 MG INJ 0.5 MG IV ×4 (04:03→22:07)
[2018-01-25] MEDS: PIPERACILLIN-TAZO 3.375 GM/50 ML FROZ.PIGGY IV ×4 (05:28→21:54)
[2018-01-25 05:55] LABS: Add Manual Diff / Slide Review NO; Basophils Percent Auto 0.2 % (0-2); Eosinophils Percent Auto 0.5 % (2-4); Hematocrit 38.5 % (36-46); Lymphocytes Percent Auto 16.2 % (25-40); Mean Corpuscular HGB Conc 33.7 % (30-36); Mean Corpuscular Hemoglobin 30.2 PG (26-34); Mean Corpuscular Volume 89.6 fL (80-100); Monocytes Percent Auto 7.9 % (3-14); Neutrophils Absolute Auto 8300 /uL (3000-5900); Neutrophils Percent Auto 75.2 % (50-75); Platelet Count 339 X10^3/uL (150-400); Red Cell Distribution Width 14.6 % (11.6-14.8)
[2018-01-25 06:10] LABS: Blood Urea Nitrogen 36 mg/dL (7-17); Calcium 8.5 mg/dL (8.4-10.2); Carbon Dioxide 34 mmol/L (22-32); Chloride 95 mmol/L (98-107); Estimated Glomerular Filt Rate 33.8 mL/min (>60); Glucose 124 mg/dL (80-110); HEMOLYSIS < 15 (0-50); Potassium 2.9 mmol/L (3.4-5.1); Sodium 141 mmol/L (137-145)
[2018-01-25] MEDS: SODIUM CHLORIDE 0.9% 1,000 ML 150 ML IV (06:54)
--- NOTE | 2018-01-25 07:40 | PC.NURSE ---
shift boss: Pt has been alert and oriented. Sats on RA 88-89%, placed on 1L o2 overnight with sats 93-94%, diminished lung sounds and crackles, shallow breathing noted. Repositioning frequently due to erythema and open area to gluteal fold, wound graph and picture done and placed in chart. Barrier cream applied to site as well. Medicated with IV Dilaudid for left side rib pain with good pain relief. Bed alarm on.
--- NOTE | 2018-01-25 08:48 | CM.DANOTE ---
DCP: Case received, EMR reviewed. Patient sleeping in her room at this time, but updated her white board in her room,. Information received from Mychal at [facility] on patient. DCP template completed with information currently available. Patient is a 77 year old female who admitted yesterday afternoon to the care of the hospitalist team. PCP: Dr. Gaviria. Payer: confirmed: Medicare/AARP Patient was sent to hospital by [facility]. Had been recently admitted there for a post ground level fall, in which she had rib fracture. At this time, she presented with bowel impaction, and shortness of breath. Patient carries diagnosis of small bowel obstruction, as well as Pneumonia. Spoke to Mychal at [facility], who stated that they will accept her back when she is medically stable. P: DCP to continue to assess. Plan is for patient to return to [facility]. Florencia Kent RN/Scientific Artist
[2018-01-25] MEDS: ENOXAPARIN 40 MG/0.4 ML SYRINGE SUBCUT (09:35)
[2018-01-25] MEDS: PANTOPRAZOLE 40 MG VIAL IV (09:36)
[2018-01-25] MEDS: TIMOLOL 0.25% OPHTH 1 DROPS EYE-BOTH ×2 (09:37→21:06)
--- NOTE | 2018-01-25 10:40 | PC.NURSE ---
Assumed pt care at 0700. Pt c/o pain 11/26, Dilaudid given at 1000. Pt is a/o x3, no c/o nausea. On 1.5L O2. Q2 turns in bed. Bed in lowest position, call light within reach and bed alarm set. Pt care continues.
[2018-01-25] MEDS: VANCOMYCIN 1,000 MG/200 ML FROZ.PIGGY 200 MG IV (12:11)
[2018-01-25] MEDS: SODIUM CHLORIDE 0.9% FLUSH 10 ML IV ×2 (13:18→20:51)
--- NOTE | 2018-01-25 15:28 | PM.PN.1 ---
Subjective Date Patient Seen: 01/25/18 Interval history: Still with abdominal pain, no nausea, no emesis. Still with significant NG tube output. She reports her ribs hurt with deep breathing Exam Vital Signs (past 8 hours): - 01/25/18 07:45 01/25/18 08:46 01/25/18 09:24 Temperature 97.7 F Pulse Rate 80 Respiratory Rate 16 Blood Pressure 129/85 Pulse Oximetry 96 96 95 01/25/18 10:14 01/25/18 11:25 Temperature 97.7 F Pulse Rate 80 Respiratory Rate 18 Blood Pressure 132/74 Pulse Oximetry 95 95 Oxygen Delivery Method Room Air Oxygen Flow Rate 1.5 Narrative Exam Narrative: appears more comfortable today Lungs: Decreased breath sounds CV: RRR nl Sl S2 2/6 MISSY ABd: soft/non tender/ hypoactive bowel tones, no board like rigidity no rebound tenderness, no palpable masses Ext: no edema Objective Labs Result Diagrams: 01/25/18 05:43 01/25/18 05:43 Labs: Laboratory Results - last 24 hr 01/24/18 01/24/18 01/24/18 15:25 15:25 15:25 WBC 19.5 H RBC 4.75 Hgb 14.3 Hct 42.2 MCV 88.8 MCH 30.2 MCHC 34.0 RDW 14.7 Plt Count 370 Neut % (Auto) 86.1 H Lymph % (Auto) 8.9 L [place] % (Auto) 4.9 Eos % (Auto) 0.0 L Baso % (Auto) 0.1 Neut # (Auto) 30307 H Sodium 141 Potassium 3.3 L Chloride 94 L Carbon Dioxide 30 BUN 31 H Creatinine 1.20 H Estimated GFR 43.7 L BUN/Creatinine Ratio 25.8 H Glucose 157 H Lactate Calcium 9.6 Total Bilirubin 0.9 AST 33 ALT 18 Alkaline Phosphatase 77 Total Creatine Kinase < 20 L CK-MB (CK-2) TNP CK-MB (CK-2) Rel Index TNP Troponin I 0.013 B-Natriuretic Peptide 281.0 H Total Protein 7.7 Albumin 4.2 Globulin 3.5 Albumin/Globulin Ratio 1.2 Procalcitonin 13.09 H Urine Color Urine Appearance Urine pH Ur Specific [place] Urine Protein Urine Glucose (UA) Urine Ketones Urine Occult Blood Urine Nitrate Urine Bilirubin Urine Urobilinogen Ur Leukocyte Esterase Urine RBC Urine WBC Ur Squamous Epith Cells Urine Bacteria Hyaline Casts Ur Culture Indicated? Micro UA Comment 01/24/18 01/24/18 01/25/18 15:25 22:30 05:43 WBC 11.0 RBC 4.30 Hgb 13.0 Hct 38.5 MCV 89.6 MCH 30.2 MCHC 33.7 RDW 14.6 Plt Count 339 Neut % (Auto) 75.2 H Lymph % (Auto) 16.2 L [place] % (Auto) 7.9 Eos % (Auto) 0.5 L Baso % (Auto) 0.2 Neut # (Auto) 8300 H Sodium Potassium Chloride Carbon Dioxide BUN Creatinine Estimated GFR BUN/Creatinine Ratio Glucose Lactate 1.6 Calcium Total Bilirubin AST ALT Alkaline Phosphatase Total Creatine Kinase CK-MB (CK-2) CK-MB (CK-2) Rel Index Troponin I B-Natriuretic Peptide Total Protein Albumin Globulin Albumin/Globulin Ratio Procalcitonin Urine Color Yellow Urine Appearance Sl cloudy Urine pH 5.0 Ur Specific [place] 1.010 Urine Protein 2+ H Urine Glucose (UA) Negative Urine Ketones Trace H Urine Occult Blood 1+ H Urine Nitrate Positive H Urine Bilirubin Negative Urine Urobilinogen 0.2 Ur Leukocyte Esterase 1+ H Urine RBC 0-1/hpf Urine WBC 30-100/hpf H Ur Squamous Epith Cells 1-5 /hpf Urine Bacteria Many (>30) H Hyaline Casts 0-1/lpf Ur Culture Indicated? Specimen cultured Micro UA Comment Not Reportable 01/25/18 05:43 WBC RBC Hgb Hct MCV MCH MCHC RDW Plt Count Neut % (Auto) Lymph % (Auto) [place] % (Auto) Eos % (Auto) Baso % (Auto) Neut # (Auto) Sodium 141 Potassium 2.9 L Chloride 95 L Carbon Dioxide 34 H BUN 36 H Creatinine 1.50 H Estimated GFR 33.8 L BUN/Creatinine Ratio 24.0 H Glucose 124 H Lactate Calcium 8.5 Total Bilirubin AST ALT Alkaline Phosphatase Total Creatine Kinase CK-MB (CK-2) CK-MB (CK-2) Rel Index Troponin I B-Natriuretic Peptide Total Protein Albumin Globulin Albumin/Globulin Ratio Procalcitonin Urine Color Urine Appearance Urine pH Ur Specific [place] Urine Protein Urine Glucose (UA) Urine Ketones Urine Occult Blood Urine Nitrate Urine Bilirubin Urine Urobilinogen Ur Leukocyte Esterase Urine RBC Urine WBC Ur Squamous Epith Cells Urine Bacteria Hyaline Casts Ur Culture Indicated? Micro UA Comment Assessment & Plan (1) Renal insufficiency: Problem details: continue IV hydration and follow up I will discontinue vancomycin for now Current visit: Yes Status: Acute (2) Hypokalemia: Problem details: Will replace Added to IVF Current visit: Yes Status: Acute (3) Pneumonia: Problem details: Agree with Zosyn given recent hospitalization Qualifiers: Aspiration pneumonia type: Laterality: bilateral Lung location: lower lobe of lung Pneumonia type: due to unspecified organism Qualified Code(s): J18.1 - Lobar pneumonia, unspecified organism Current visit: Yes Status: Acute (4) SBO (small bowel obstruction): Problem details: NPO, NG tube to LIS, follow up KUB 1-2 days Current visit: Yes Status: Acute (5) Osteoporosis: Problem details: as above Current visit: No Status: Acute Plan: Assessment/Plan Narrative: KUB in am
--- NOTE | 2018-01-25 15:45 | DI.RAD.S_ITS ---
PROCEDURE: XR KUB INDICATIONS: f/u SBO TECHNIQUE: One view of the abdomen acquired. COMPARISON: [facility], CT, CT ABDOMEN PELVIS W CON, 01/24/2018, 16:55. [facility], CR, KUB XRAY (1 VIEW ABDOMEN), 09/27/2015, 18:22. FINDINGS: Surgical changes and devices: None. Bowel: Dilated, gas-filled loops of small bowel persist, predominantly within the right and left upper quadrants. No pneumoperitoneum on this supine view. Soft tissues: No suspicious abdominal calcifications. Visualized solid organ contours appear normal in size. Aortic endograft is redemonstrated. Contrast is visualized within the decompressed bladder. Cholecystectomy clips are present in the gallbladder fossa. Bones: No suspicious bony lesions. 2 right cannulated femoral screws are noted. IMPRESSION: Persistent dilated loops of small bowel consistent with small bowel obstruction or ileus. Dictated by: Bisi Leavitt M.D. on 01/25/2018 at 17:04 Approved by: Bisi Leavitt M.D. on 01/25/2018 at 17:05
[2018-01-25] MEDS: KCL 40 MEQ IN NS 1,000 ML 125 MEQ IV (15:52)
--- NOTE | 2018-01-25 17:38 | PC.NURSE ---
Addendum entered by Fabby Hopson R.N. 01/25/18 22:28: Procalcitonin at 2100 was 7.32, Dr. Castaneda notified. Original Note: Addendum entered by Fabby Hopson R.N. 01/25/18 20:55: Relatively uneventful evening. Dr. Castaneda in to see and discussion of possible surgery. States discomfort mid abdomen and left rib area is tolerable. IV fluids continue as per orders. NG patent dark content. Call light w/in reach. Continue w/plan of care. Original Note: Pt resting quielty at thsi time Med w/dilaudid w/good relief. IV fluids infusing via pump as per orders w/o incidence. NG patent dark content. Call light w/in reach, bed alarm on for pt safety.
--- NOTE | 2018-01-25 19:03 | P.CONS_ITS ---
History of Present Illness Date Patient Seen: 01/25/18 Time Patient Seen: 19:02 Chief complaint: L sided chest pain Reason for consult: Abdominal pain and distention Requesting provider: Roz Young Narrative: 77-year-old female with significant comorbid medical conditions who presented the emergency department with abdominal pain, distention, nausea, and vomiting. She is also complaining of some left chest wall pain possibly related to recent rib fractures. She states that she last passed flatus and had a bowel movement 3 or 4 days ago. She has been relatively anorexic and unable to tolerate any significant oral intake. She is also complaining of some right-sided abdominal pain which does not radiate to the back of the shoulder. No current chest pain or shortness of breath. No productive cough. However, she did have evidence of pneumonia on initial admission for which she is being treated. Denies any dysuria or hematuria. No subjective fever or chills. 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, unilateral (Acute) Small bowel obstruction, partial (Acute) Age-related osteoporosis without current pathological fracture (Chronic) Aortic aneurysm of unspecified site, without rupture (Chronic) Chronic pain syndrome (Chronic) Essential (primary) hypertension (Chronic) GERD (gastroesophageal reflux disease) (Chronic) Headache (Chronic) Heart failure (Chronic) Hyperglycemia (Chronic) Hyperlipidemia (Chronic) Insomnia (Chronic) Major depressive disorder, recurrent, moderate (Chronic) Mixed hyperlipidemia (Chronic) 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) Sleep apnea (Chronic) Spinal stenosis of lumbar region (Chronic) Vitamin D deficiency (Chronic) History of fracture of right hip (Resolved) Surgical History History of lumpectomy (Acute) History of nephrectomy (Acute) History of repair of aneurysm of abdominal aorta using endovascular stent graft (Acute) Family History Father Cancer Brother Cancer Social History household members: none Smoking Status: Former smoker alcohol intake: current Meds Home Medications Medication Instructions Recorded Confirmed Type cholecalciferol (vitamin D3) 1 tab PO QDAY #0 05/29/11 01/24/18 History [Vitamin D3] simvastatin 20 mg PO HS #0 05/29/11 01/24/18 History spironolactone 12.5 mg PO QDAY #0 05/29/11 01/24/18 History bokjtrj-rebmroszblatp-ksrjqjhi 2 tab PO Q6HP PRN #0 01/12/17 01/24/18 History [Excedrin Extra Strength] carvedilol [Coreg] 3.125 mg PO BID #0 01/12/17 01/24/18 History omega 1-kjp-trf-fish oil [Omera] 1,200 mg PO QDAY #0 01/12/17 01/24/18 History timolol maleate 1 drp OPHTH BID #0 01/12/17 01/24/18 History latanoprost [Xalatan] 1 drp OPHTH HS #0 08/10/17 01/24/18 History erenumab-aooe 70 mg/mL 70 mg SUBCUT QMONTH #1 ml 10/28/17 01/24/18 Rx subcutaneous auto-injector aspirin 81 mg PO DAILY 11/02/17 01/24/18 History bupropion HCl 150 mg PO BID 11/02/17 01/24/18 History cetirizine 10 mg PO DAILY 11/02/17 01/24/18 History duloxetine 30 mg PO QPM 11/02/17 01/24/18 History omeprazole 20 mg PO BID 11/02/17 01/24/18 History zonisamide 100 mg PO QPM 11/02/17 01/24/18 History bisacodyl 1 - 2 tab PO PRN PRN 01/24/18 01/24/18 History bisacodyl 1 supp SC PRN PRN 01/24/18 01/24/18 History duloxetine 60 mg PO QAM 01/24/18 01/24/18 History hydrocodone-acetaminophen 2 tab PO Q4HR PRN MDD 3000 mg 01/24/18 01/24/18 History magnesium hydroxide [Milk of 30 ml PO PRN PRN 01/24/18 01/24/18 History Magnesia] melatonin 10 mg PO BEDTIME PRN 01/24/18 01/24/18 History ondansetron HCl [Zofran] 4 mg PO Q6H PRN 01/24/18 01/24/18 History sodium phosphates [Fleet Enema] 1 supp SC PRN PRN 01/24/18 01/24/18 History Allergies Allergy/AdvReac Type Severity Reaction Status Date / Time No Known Drug Allergies Allergy Verified 01/24/18 15:20 Review of Systems Review of Systems All systems reviewed & are unremarkable except as noted in HPI and below Exam Vital Signs (past 8 hours): - 01/25/18 11:25 01/25/18 15:42 01/25/18 17:30 Temperature 97.7 F 96.3 F L Pulse Rate 80 81 Respiratory Rate 18 18 Blood Pressure 132/74 138/80 Pulse Oximetry 95 95 95 Oxygen Delivery Method Nasal Cannula Oxygen Flow Rate 1.5 Narrative Exam Narrative: Patient seen and examined with the assistance of the nurseFabby Nasogastric tube is in place draining dark bilious fluid. Output this shift is been approximately 400 cc. Urine output is approximately 300-400 cc per shift, but patient does not have Shelley catheter in place. Elderly female lying comfortably in bed in no acute distress. Alert oriented x3. Overall, she is in good spirits. Neck is supple Regular rate and rhythm. No crackles Abdomen is soft and mildly distended. She is tympanitic in the right abdomen. She has actually moderately tender in the right lateral abdomen toward the right lower quadrant but without involuntary guarding. No rebound tenderness. No obvious masses. No ascites. Well-healed midline abdominal scar without obvious hernias. Extremities show no clubbing or cyanosis Objective Labs Result Diagrams: 01/25/18 05:43 01/25/18 05:43 Labs: Laboratory Results - last 24 hr 01/24/18 01/25/18 01/25/18 22:30 05:43 05:43 WBC 11.0 RBC 4.30 Hgb 13.0 Hct 38.5 MCV 89.6 MCH 30.2 MCHC 33.7 RDW 14.6 Plt Count 339 Neut % (Auto) 75.2 H Lymph % (Auto) 16.2 L [place] % (Auto) 7.9 Eos % (Auto) 0.5 L Baso % (Auto) 0.2 Neut # (Auto) 8300 H Sodium 141 Potassium 2.9 L Chloride 95 L Carbon Dioxide 34 H BUN 36 H Creatinine 1.50 H Estimated GFR 33.8 L BUN/Creatinine Ratio 24.0 H Glucose 124 H Calcium 8.5 Urine Color Yellow Urine Appearance Sl cloudy Urine pH 5.0 Ur Specific [place] 1.010 Urine Protein 2+ H Urine Glucose (UA) Negative Urine Ketones Trace H Urine Occult Blood 1+ H Urine Nitrate Positive H Urine Bilirubin Negative Urine Urobilinogen 0.2 Ur Leukocyte Esterase 1+ H Urine RBC 0-1/hpf Urine WBC 30-100/hpf H Ur Squamous Epith Cells 1-5 /hpf Urine Bacteria Many (>30) H Hyaline Casts 0-1/lpf Ur Culture Indicated? Specimen cultured Micro UA Comment Not Reportable Urine and blood cultures are pending at this time. Early growth in the urine culture but no growth in the blood cultures at this point. Quite concerning is her significantly elevated procalcitonin level at admission. Repeat level is pending at this time. Creatinine mildly elevated. I have personally reviewed her CT scan of the abdomen and pelvis done at the time of admission along with KUB plain x-ray today. She clearly has multiple dilated loops of small bowel with what appears to be a distal partial small bowel obstruction. I suspect etiology is adhesions deep in the pelvis. No free fluid or obviously inflamed bowel loops. No free air. Assessment & Plan Plan: Assessment/Plan Narrative: 77-year-old female with significant comorbid medical conditions and partial small bowel obstruction. I am concerned about her procalcitonin level and abdominal exam findings at the moment. She does not have evidence of obvious peritonitis however. Elevated procalcitonin could be due to pneumonia and/or urinary tract infection. She is currently maintained on Zosyn. Lactate level was normal at admission. She has significant NG output and no reportable bowel function. Am concerned that the bowel obstruction will not resolve spontaneously. Await procalcitonin level currently. Repeat CBC and basic metabolic panel tomorrow as well as three-view abdominal x-ray series. If her examination and above studies continue to show unchanging bowel obstruction that I believe she would likely warrant laparotomy. I discussed this with her at some length this evening, especially regarding the elevated risk in a somewhat elderly debilitated patient with single kidney, active pneumonia, elevated creatinine, and probable significant abdominal adhesions. We discussed the small possibility of ICU admission afterwards depending upon findings if surgery is even indicated. We will continue to follow her examination and clinical evaluation as above. In the interim we will continue current care. All patient's questions were answered to her satisfaction, and she voiced understanding. She was agreeable to the plan. Orders were written.
[2018-01-25] MEDS: LATANOPROST 0.005% OPHTH 2.5 ML 1 DROPS EYE-BOTH (20:45)
[2018-01-25 21:45] LABS: Procalcitonin 7.32 ng/mL (<0.5)
[2018-01-26] VITALS (31 sets, daily range): BP systolic 110–187; BP diastolic 66–111; PULSE 71–91; RESP 12–18; TEMP 36.1–37.2; O2SAT 90–97; BMI 25.5
--- NOTE | 2018-01-26 | DI.RAD.S_ITS ---
PROCEDURE: XR ACUTE ABDOMEN SERIES INDICATIONS: SMALL BOWEL OBSTRUCTION TECHNIQUE: One view chest and two views of the abdomen were acquired. COMPARISON: [facility], CT, CT ABDOMEN PELVIS W CON, 01/24/2018, 16:55. [facility], CR, XR KUB, 01/25/2018, 15:46. FINDINGS: Surgical changes and devices: An NG tube is seen, with the tip coiled and overlying the fundus of the stomach. The sidehole is clearly below the level of the diaphragm. There is an aortobiiliac stent graft in. There are right proximal femur screws. A right mid abdomen clip can be seen. Cholecystectomy clips are seen. Chest: Mild, streaky opacities are seen at the lung bases. Interstitial prominence is seen. The cardiac contours are within normal limits. The aorta demonstrates calcification and tortuosity. No pleural effusions. No pneumoperitoneum. Abdomen: Dilated loops of small bowel are seen, which measure up to 3.8 cm. Differential air-fluid levels can be seen on the upright image. No suspicious calcifications. Visualized solid organ contours appear normal. Bones: No suspicious bony lesions. Age-appropriate bony degenerative changes are seen. Mild dextroconvex scoliotic curvature is seen. IMPRESSION: Continued small bowel obstruction. The tip of the NG tube is seen overlying the fundus of the stomach. Postoperative and degenerative changes. Likely atelectasis is seen at the lung bases. Interstitial prominence is seen throughout. The interstitial prominence is nonspecific, yet may be related to pulmonary edema. Dictated by: Dave Craft M.D. on 01/26/2018 at 8:56 Approved by: Dave Craft M.D. on 01/26/2018 at 9:05
[2018-01-26] MEDS: KCL 40 MEQ IN NS 1,000 ML 125 MEQ IV ×2 (01:04→11:11)
[2018-01-26] MEDS: PIPERACILLIN-TAZO 3.375 GM/50 ML FROZ.PIGGY IV ×4 (05:04→23:41)
[2018-01-26 05:55] LABS: Add Manual Diff / Slide Review NO; Basophils Percent Auto 0.3 % (0-2); Eosinophils Percent Auto 2.1 % (2-4); Hematocrit 36.9 % (36-46); Hemoglobin 12.5 g/dL (12.0-16.0); Lymphocytes Percent Auto 18.3 % (25-40); Mean Corpuscular HGB Conc 33.9 % (30-36); Mean Corpuscular Hemoglobin 30.4 PG (26-34); Mean Corpuscular Volume 89.7 fL (80-100); Monocytes Percent Auto 5.9 % (3-14); Neutrophils Absolute Auto 6600 /uL (3000-5900); Neutrophils Percent Auto 73.4 % (50-75); Platelet Count 298 X10^3/uL (150-400); Red Blood Cell Count 4.11 X10^6/uL (4.0-5.2); Red Cell Distribution Width 14.6 % (11.6-14.8)
[2018-01-26 06:06] LABS: BUN Creatinine Ratio 17.1 (6-22); Blood Urea Nitrogen 24 mg/dL (7-17); Calcium 8.6 mg/dL (8.4-10.2); Carbon Dioxide 30 mmol/L (22-32); Chloride 101 mmol/L (98-107); Estimated Glomerular Filt Rate 36.6 mL/min (>60); Glucose 96 mg/dL (80-110); HEMOLYSIS < 15 (0-50); Potassium 3.5 mmol/L (3.4-5.1); Sodium 144 mmol/L (137-145)
[2018-01-26] MEDS: HYDROMORPHONE 1 MG INJ 0.5 MG IV (08:25)
[2018-01-26] MEDS: PANTOPRAZOLE 40 MG VIAL IV (08:57)
[2018-01-26] MEDS: ENOXAPARIN 40 MG/0.4 ML SYRINGE SUBCUT (09:30)
[2018-01-26] MEDS: BENZOCAINE/MENTHOL 1 LOZ PKT 1 EACH PO (09:35)
[2018-01-26] MEDS: TIMOLOL 0.25% OPHTH 1 DROPS EYE-BOTH ×2 (09:36→20:42)
--- NOTE | 2018-01-26 10:18 | PM.PN.1 ---
Subjective Date Patient Seen: 01/26/18 Time Patient Seen: :18 Interval history: Continues to complain of right-sided abdominal pain. No new chest pain or shortness of breath although she is now on 2 L nasal cannula oxygen. Denies productive cough. No subjective fever or chills. Continues to feel subjectively distended throughout the abdomen. Denies any flatus or bowel function of any type. Complaining of mild dry sore throat secondary to nasogastric tube. No dysuria. Exam Vital Signs (past 8 hours): - 01/26/18 03:00 01/26/18 07:40 01/26/18 09:00 Temperature 98.0 F 97.8 F Pulse Rate 83 91 H Respiratory Rate 18 18 Blood Pressure 142/94 H 151/111 H Pulse Oximetry 94 92 92 01/26/18 09:10 01/26/18 09:12 Temperature Pulse Rate Respiratory Rate Blood Pressure Pulse Oximetry 90 L 92 Fraction of Inspired Oxygen 24 Oxygen Delivery Method Nasal Cannula Oxygen Flow Rate 1 Narrative Exam Narrative: Elderly female sitting comfortably in bed in no acute distress. Alert oriented x3. No fevers and no tachycardia. Mildly hypertensive last night but blood pressure otherwise stable. Nasogastric tube has collected approximately 2.2 L of dark green bilious fluid over the last 24 hr. Chest is clear to auscultation although breath sounds are diminished bilaterally. No crackles or wheezes currently. Abdomen is soft but distended. She does have active bowel sounds. She remains markedly tender in the right lateral abdomen with some voluntary guarding. No masses. Remains tympanitic. Exam otherwise does not seem to be remarkably changed since yesterday at the time of my initial consultation. Again, her tenderness is significant. Extremities show no clubbing or cyanosis Objective Labs Result Diagrams: 01/26/18 05:43 01/26/18 05:43 Labs: Laboratory Results - last 24 hr 01/25/18 01/26/18 01/26/18 21:12 05:43 05:43 WBC 9.0 RBC 4.11 Hgb 12.5 Hct 36.9 MCV 89.7 MCH 30.4 MCHC 33.9 RDW 14.6 Plt Count 298 Neut % (Auto) 73.4 Lymph % (Auto) 18.3 L [place] % (Auto) 5.9 Eos % (Auto) 2.1 Baso % (Auto) 0.3 Neut # (Auto) 6600 H Sodium 144 Potassium 3.5 Chloride 101 Carbon Dioxide 30 BUN 24 H Creatinine 1.40 H Estimated GFR 36.6 L BUN/Creatinine Ratio 17.1 Glucose 96 Calcium 8.6 Procalcitonin 7.32 H Procalcitonin is trending down as anticipated. Cultures are showing gram-negative rods in the urine culture but blood cultures remain negative to date. Awaiting identification of urine bacteria. I have personally reviewed her acute abdominal series with the staff radiologist this morning. She continues to show multiple dilated loops of small bowel with significant dilatation and air-fluid levels. NG tube is in good position in the stomach. No free air. Bibasilar infiltrates of the lungs remain present. Assessment & Plan Plan: Assessment/Plan Narrative: 77-year-old female with persistent significant small-bowel obstruction likely near the distal ileum. I suspected transition point is secondary to adhesions deep in the pelvis. She clearly is not improving and has ongoing concerning examination findings. At this point I do not believe that the obstruction will spontaneously resolve. I have therefore recommended exploratory laparotomy with lysis of adhesions and possible bowel resection. Technical details of the procedure were discussed. Anticipated healing and recovery times reviewed. I anticipate a prolonged hospital stay. After her elective nephrectomy she required 3 weeks in the hospital for recovery purposes. I also have no doubt she will require snf facility placement following discharge from the hospital. She has been to the [facility] in the past for other reasons following prior surgeries including the nephrectomy. She is agreeable to that plan. I also suspect she will require some intensive care unit stay after surgery. We discussed the small possibility that she may need to be on the ventilator for respiratory support following such a major operation complicated by her known pneumonia. Risks, benefits, alternatives were explained. The alternative of observation only is unlikely to result in spontaneous resolution of the bowel obstruction, and may even progressed to skinny mesenteric ischemia which would very likely result in her demise. Risks of the operation including but not limited to anesthesia, respiratory failure, bleeding, need for transfusion, pain, scar, poor wound healing, infection, abscess, small bowel injury, anastomotic leak, colon injury, bladder injury, left ureter injury, gastric injury, renal failure, sepsis, need for ostomy, possible permanent ostomy, and need for further major abdominal surgery were all discussed in detail. All questions were answered to her satisfaction, and she voiced understanding. At her request I discussed the above issues with her ztcybjlz-ou-suy, Manisha, via telephone. She voiced understanding also. Patient and family were agreeable to the plan. Consent was placed on the chart. We will proceed with surgery within the next several hours.
[2018-01-26] MEDS: SODIUM CHLORIDE 0.9% FLUSH 10 ML IV ×2 (10:20→20:42)
--- NOTE | 2018-01-26 12:24 | PM.PN.1 ---
Subjective Date Patient Seen: 01/26/18 Interval history: Still with abdominal discomfort. Her mouth is dry and she does not like the NG tube. She is scheduled for definitive surgery in a few hours. Her blood pressure has been elevated Exam Vital Signs (past 8 hours): - 01/26/18 07:40 01/26/18 09:00 01/26/18 09:10 Temperature 97.8 F Pulse Rate 91 H Respiratory Rate 18 Blood Pressure 151/111 H Pulse Oximetry 92 92 90 L 01/26/18 09:12 Temperature Pulse Rate Respiratory Rate Blood Pressure Pulse Oximetry 92 Fraction of Inspired Oxygen 24 Oxygen Delivery Method Nasal Cannula Oxygen Flow Rate 1 Narrative Exam Narrative: Pleasant female somewhat anxious about surgery Lungs: Decreased breathsounds with bibasilar crackles CV: RRR nl SlS2 Abd: soft/ mildly tender/no rebound/ no board like rigidity/no masses Ext: no edema Objective Labs Result Diagrams: 01/26/18 05:43 01/26/18 05:43 Labs: Laboratory Results - last 24 hr 01/25/18 01/26/18 01/26/18 21:12 05:43 05:43 WBC 9.0 RBC 4.11 Hgb 12.5 Hct 36.9 MCV 89.7 MCH 30.4 MCHC 33.9 RDW 14.6 Plt Count 298 Neut % (Auto) 73.4 Lymph % (Auto) 18.3 L [place] % (Auto) 5.9 Eos % (Auto) 2.1 Baso % (Auto) 0.3 Neut # (Auto) 6600 H Sodium 144 Potassium 3.5 Chloride 101 Carbon Dioxide 30 BUN 24 H Creatinine 1.40 H Estimated GFR 36.6 L BUN/Creatinine Ratio 17.1 Glucose 96 Calcium 8.6 Procalcitonin 7.32 H Blood Type Antibody Screen 01/26/18 10:44 WBC RBC Hgb Hct MCV MCH MCHC RDW Plt Count Neut % (Auto) Lymph % (Auto) [place] % (Auto) Eos % (Auto) Baso % (Auto) Neut # (Auto) Sodium Potassium Chloride Carbon Dioxide BUN Creatinine Estimated GFR BUN/Creatinine Ratio Glucose Calcium Procalcitonin Blood Type AB Positive Antibody Screen Negative Assessment & Plan (1) SBO (small bowel obstruction): Problem details: NPO, NG tube to LIS, Patient going for definitive surgery today Current visit: Yes Status: Acute (2) Pneumonia: Problem details: Agree with Zosyn given recent hospitalization Qualifiers: Aspiration pneumonia type: Laterality: bilateral Lung location: lower lobe of lung Pneumonia type: due to unspecified organism Qualified Code(s): J18.1 - Lobar pneumonia, unspecified organism Current visit: Yes Status: Acute (3) Renal insufficiency: Problem details: continue IV hydration and follow up I will discontinue vancomycin for now Current visit: Yes Status: Acute (4) Hypertension: Problem details: IV Lopressor as needed Current visit: Yes Status: Acute
--- NOTE | 2018-01-26 13:07 | PC.NURSE ---
Day Shift- BP elevated at 151/107, Dr. Young made aware of hypertension issue today at 1215. New order rec'd for Metoprolol. Pt needs to be on telemetry monitoring for 1st does, telemetry box rec'd, OR staff present at 1250 to pick pt up. Unable to give prn Metoprolol, OR staff aware and will reassess. PIV S/L'd. NGT output for shift is approx 500mls of green/brown fluid. Pt to OR via bed at 1300 in no distress. Pt's ANGELA Dyer took personal belongings with her with pt permission. Pajamas, dentures, cell phone, tablet, 2 chargers and novel.
[2018-01-26] MEDS: LACTATED RINGERS 1,000 ML 125 ML IV (13:17)
[2018-01-26] MEDS: METOPROLOL TARTRATE 5 MG/5 ML INJ IV (13:18)
--- NOTE | 2018-01-26 14:05 | CM.DPC ---
DCP: continued: case received, EMR reviewed and went to room to meet pt. She has been taken to surgery under Dr. Castaneda's care for an exploratory lap, VALENTE and possible bowel resection. P: remains a return to [facility] to continue her rehab recovery stay. Hospitalist team is primary, surgery consulting.
[2018-01-26] MEDS: CEFOTETAN 2 GM/50 ML PIGGYBACK IV (14:11)
--- NOTE | 2018-01-26 14:41 | SUR.OPER ---
Supine on padded OR bed, head on pillow, arms secured on padded arm boards at <90 degrees abduction, legs uncrossed, safety belt at thigh, tape over blanket over lower legs.
[2018-01-26] MEDS: ACETAMINOPHEN IV 1,000 MG/100 ML VIAL 400 MG IV (14:55)
--- NOTE | 2018-01-26 15:48 | P.OP_ITS ---
Operative Date/Time/Diagnoses Date of procedure: 01/26/18 Time of procedure: 15:42 Pre-op diagnosis: Small-bowel obstruction Post-op diagnosis: other (Significant small-bowel obstruction secondary to adhesions) Procedure & Clinicians Procedure: Exploratory laparotomy with lysis of adhesions Same procedure as scheduled: Yes Indications: 77-year-old female who presented with abdominal pain, nausea, vomiting, and lack of bowel function. Examination and evaluation were consistent with small-bowel obstruction. She failed conservative nonoperative management and laparotomy was recommended. Surgeon: Joel Castaneda Community Cultural Development Officer: Melanie Wheatley Click Yes if Unassisted: No Anesthesia Type: General Operative Notes Findings: 1. Significant dilated proximal small bowel but with no evidence of mesenteric ischemia or perforation 2. No significant free fluid in the abdomen. Certainly no gross pus. 3. Extensive adhesions throughout the entire abdomen and pelvis 4. Clear transition point secondary to adhesions in the distal small bowel 5. Palpable aortobiiliac endovascular graft in the retroperitoneum 6. Normal appendix Closure Type: primary Specimen(s): none sent Implants & Drains: None Estimated Blood Loss (mL): 50 Blood products transfused: none Procedure in detail: After obtaining informed consent patient was brought to the operating room and placed supine on the table. After satisfactory induction of anesthesia the abdomen was prepped and draped in usual sterile fashion including Ioban. SCOAP time out was performed per standard protocol. A vertical midline incision was created with 10 scalpel blade incorporating the existing lower abdominal scar. Bovie was used to achieve hemostasis. Dissection proceeded through the subcutaneous tissue to the rectus fascia which was divided in the midline near the umbilicus. Peritoneum was entered in the surgeon's finger was then inserted into the abdominal cavity. Remaining portion of the fascia for the length of the incision was then opened with the Bovie over the Surgeons inserted fingers. Findings are as above. Adhesions were taken down with a combination of the Bovie as well as Metzenbaum scissors. Eventually the entire small bowel from the ligament of Treitz to the terminal ileum at the ileocecal valve with liberated and the obstruction was relieved. Colon was otherwise normal and viable without evidence of any abnormalities. Small bowel was meticulously examined from the ligament Treitz to the ileocecal valve and there was no evidence of any enterotomies, ischemia, or significant serosal tears. Bowel was replaced into its usual anatomic position. Omentum was brought down over the bowel and the fascia was closed with 2 running interrupted 1 Prolene suture tied in the midline. Subcutaneous tissue was irrigated with copious amounts of sterile saline solution. Hemostasis was verified. Skin was loosely closed with steven. Sterile dressing was applied. Anesthesia was reversed and patient extubated in the operating room. She was taken recovery in stable condition. Complications: none Condition: stable Disposition: PACU Plan for aftercare: 1. Admit to ICU for observation given the patient's comorbid medical conditions and bilateral pneumonia
[2018-01-26] MEDS: HYDROMORPHONE 0.5 MG INJ IV (16:09)
[2018-01-26] MEDS: LACTATED RINGERS 1,000 ML 43 ML IV ×2 (16:10→17:29)
[2018-01-26] MEDS: HYDROMORPHONE 2 MG INJ 0.5 MG IV ×6 (16:14→17:03)
--- NOTE | 2018-01-26 16:55 | SUR.PHASEI ---
talked with pt about pain management. Pt states she has a very high tolerance for pain. Pt awake and talking. Report given to Ya MILLAN in ICU.
--- NOTE | 2018-01-26 18:03 | PC.NURSE ---
1715- Patient arrived to room 104 in a bed. Patient is alert and oriented. Midline dressing intact with some drainage noted. NGT to lis tubing has green fluid. Shelley to gravity clear yellow urine. IVF infusing per MD order. CARTRIDGE FILLER per MD order. Family is at bedside. Will monitor closely.
[2018-01-26] MEDS: LATANOPROST 0.005% OPHTH 2.5 ML 1 DROPS EYE-BOTH (20:42)
[2018-01-26] MEDS: HYDROMORPHONE PCA 6 MG/30 ML PCA.VIAL 1.1 MG IV (22:24)
[2018-01-27] VITALS (13 sets, daily range): BP systolic 122–163; BP diastolic 75–92; PULSE 77–98; RESP 10–20; TEMP 35.8–36.4; O2SAT 93–97
[2018-01-27] MEDS: LACTATED RINGERS 1,000 ML 43 ML IV (02:24)
[2018-01-27] MEDS: PIPERACILLIN-TAZO 3.375 GM/50 ML FROZ.PIGGY IV ×4 (05:08→22:51)
[2018-01-27] MEDS: HYDROMORPHONE PCA 6 MG/30 ML PCA.VIAL IV ×2 (05:28→06:32)
--- NOTE | 2018-01-27 05:37 | PC.NURSE ---
ML ABD dressing with shadow drainage (marked) and increased oozing noted to LLQ. Dressing reinforced. Pain not adequately controlled. Pt states she finally falls asleep and doesn't press her SYSTEMS LIBRARIAN button and then can't catch up. Dr. Wheatley notified, order for continuous 0.1 mg/hour dose for the SYSTEMS LIBRARIAN. Changes inititated.
[2018-01-27 06:03] LABS: Procalcitonin 2.44 ng/mL (<0.5)
[2018-01-27 07:15] LABS: Add Manual Diff / Slide Review NO; Basophils Percent Auto 0.2 % (0-2); Eosinophils Percent Auto 1.6 % (2-4); Hematocrit 37.3 % (36-46); Hemoglobin 12.3 g/dL (12.0-16.0); Lymphocytes Percent Auto 14.9 % (25-40); Mean Corpuscular HGB Conc 32.9 % (30-36); Mean Corpuscular Hemoglobin 30.1 PG (26-34); Mean Corpuscular Volume 91.4 fL (80-100); Monocytes Percent Auto 6.4 % (3-14); Neutrophils Absolute Auto 7500 /uL (3000-5900); Neutrophils Percent Auto 76.9 % (50-75); Platelet Count 300 X10^3/uL (150-400); Red Blood Cell Count 4.08 X10^6/uL (4.0-5.2); Red Cell Distribution Width 14.6 % (11.6-14.8); White Blood Cell Count 9.8 X10^3/uL (4.5-11.0)
[2018-01-27 07:19] LABS: BUN Creatinine Ratio 16.4 (6-22); Blood Urea Nitrogen 18 mg/dL (7-17); Calcium 8.4 mg/dL (8.4-10.2); Carbon Dioxide 25 mmol/L (22-32); Chloride 106 mmol/L (98-107); Estimated Glomerular Filt Rate 48.3 mL/min (>60); Glucose 96 mg/dL (80-110); HEMOLYSIS < 15 (0-50); Magnesium 1.6 mg/dL (1.6-2.3); Potassium 3.6 mmol/L (3.4-5.1); Sodium 142 mmol/L (137-145)
--- NOTE | 2018-01-27 08:22 | P.PN_ITS ---
Subjective Date Patient Seen: 01/27/18 Time Patient Seen: 08:16 Interval history: Patient's major complaint remains uncontrolled pain. She was given a basal Dilaudid ENVIRONMENTAL PROTECTION GEOLOGIST rate last night which offered some relief in conjunction with her demand mode but apparently she then falls asleep and wakes up with significant discomfort. Denies nausea or vomiting. No subjective fever or chills. Denies chest pain or shortness of breath. Exam Vital Signs (past 8 hours): - 01/27/18 04:48 01/27/18 06:09 01/27/18 07:23 Temperature 96.5 F L 97.5 F L Pulse Rate 78 80 84 Respiratory Rate 16 10 L Blood Pressure 163/92 H 143/92 H 145/83 H Pulse Oximetry 97 95 95 Fraction of Inspired Oxygen 24 Oxygen Delivery Method Nasal Cannula Oxygen Flow Rate 3 Narrative Exam Narrative: Patient seen and examined with the attending nurseFranc She is resting comfortably in bed at the moment. Easily arousable. Alert oriented x3 Nasogastric tube continues to collect bilious fluid although output was only approximately 500 cc since surgery. Urine output was 400 cc clear yellow in the Shelley bag last shift. She remained stable with saturation of 94-95% on 3 L nasal cannula oxygen. Good cough effort but does cause her some obvious discomfort along the incision Chest is clear to auscultation with regular rate and rhythm currently. No wheezes or crackles. Breath sounds are diminished bilateral bases however. Abdomen is soft and minimally distended. She is appropriately tender to palpation without guarding or rebound. Her wound shows some cutaneous bleeding near the umbilicus. I changed the dressing completely and placed gauze pressure dressing over the area after holding digital pressure for several minutes. Bleeding appeared to be subsequently controlled. No ecchymoses or hematomas however. No cellulitis or erythema. Wound is otherwise clean and intact. Extremities show no clubbing or cyanosis Objective Labs Result Diagrams: 01/27/18 04:36 01/27/18 04:36 Labs: Laboratory Results - last 24 hr 01/26/18 01/26/18 01/27/18 10:44 17:50 04:36 WBC RBC Hgb Hct MCV MCH MCHC RDW Plt Count Neut % (Auto) Lymph % (Auto) [place] % (Auto) Eos % (Auto) Baso % (Auto) Neut # (Auto) Sodium Potassium Chloride Carbon Dioxide BUN Creatinine Estimated GFR BUN/Creatinine Ratio Glucose Calcium Magnesium Procalcitonin 2.44 H Nasal Screen MRSA (PCR) Negative for mrsa Blood Type AB Positive Antibody Screen Negative 01/27/18 01/27/18 04:36 04:36 WBC 9.8 RBC 4.08 Hgb 12.3 Hct 37.3 MCV 91.4 MCH 30.1 MCHC 32.9 RDW 14.6 Plt Count 300 Neut % (Auto) 76.9 H Lymph % (Auto) 14.9 L [place] % (Auto) 6.4 Eos % (Auto) 1.6 L Baso % (Auto) 0.2 Neut # (Auto) 7500 H Sodium 142 Potassium 3.6 Chloride 106 Carbon Dioxide 25 BUN 18 H Creatinine 1.10 H Estimated GFR 48.3 L BUN/Creatinine Ratio 16.4 Glucose 96 Calcium 8.4 Magnesium 1.6 Procalcitonin Nasal Screen MRSA (PCR) Blood Type Antibody Screen Assessment & Plan Plan: Assessment/Plan Narrative: 77-year-old female postoperative day 1 from exploratory laparotomy with lysis of adhesions for bowel obstruction who is otherwise stable but is having difficulties with analgesia. We will increase her basal rate, add Dilaudid boluses as needed every few hours, and increased the demand mode. She may still yet be a candidate for epidural catheter if these measures remain and effective. I would not give her Toradol or other NSAIDs given her single kidney. IV Tylenol is not an option outside of the operating room at this institution. Cannot yet add gabapentin due to NPO status. Continue nasogastric tube. She may have ice chips and Cepacol lozenges as needed for oral comfort. Physical therapy has been consulted for mobilization. Hope to ambulate her today at the bedside. Respiratory therapy will continue to evaluate the patient and wean oxygen accordingly per parameters. Strongly encouraged cough and incentive spirometry with the patient today. Repeat laboratory studies tomorrow, but supplement potassium and magnesium today. IV fluids have been changed and the rate slightly decreased. Continue Zosyn. Urine culture shows Citrobacter species with no sensitivities characterized. However, her procalcitonin is decreasing appropriately so the antibiotic appears to be effective. PICC line to be placed today. I suspect she will need TPN beginning tomorrow after she has been adequately resuscitated with isotonic fluids today. If she remains stable then she could potentially be transferred from the ICU to the regular floor status later this afternoon or tomorrow morning. All the above discussed with the patient and the attending nurse in detail. Patient's questions were answered to her satisfaction, and she voiced understanding. Orders written.
[2018-01-27] MEDS: BENZOCAINE/MENTHOL 1 LOZ PKT 1 EACH PO (08:42)
[2018-01-27] MEDS: HYDROMORPHONE 2 MG INJ 1 MG IV (08:45)
--- NOTE | 2018-01-27 08:59 | CM.DANOTE ---
Addendum entered by Jeannine Perez LPN 01/27/18 15:33: Met with pt as planned. Pt confirms her plan for a return to [facility] when she is stable for same. She notes that she is relieved that the surgery went well and was not as extensive as she feared it might be. Spoke with Ashley Juarez/[facility] who gives assurance that [facility] is holding her belongings and bed and she need have no concerns re this. OT and PT are seeing pt today. P: remains return to [facility] when stable for same. Original Note: DCP: continued: EMR reviewed. Pt has surgery as planned yesterday: exploratory laparotomy/[facility] surgeon: Dr. Castaneda. Pt is now in the ICU setting. She also is treated for bilateral pneumonia and is under primary care of the hospitalist team. Will check in with her today to let her know the DCP team is continuing to follow her case. P: remains: return to [facility] to continue rehab and recovery. Will need PASRR even though she is readmitting, as per [facility] protocol. Will need doc to doc discussion at d/c: Hospitalist to [facility] medical office representative: Francisco Javier Trimble or RUTH: cell: [phone]
[2018-01-27] MEDS: DEXTROSE 5%-NS W/KCL 20MEQ 1,000 ML 100 MEQ IV ×2 (09:18→21:49)
[2018-01-27] MEDS: MAGNESIUM SULFATE 2 GM/50 ML PIGGYBACK IV (09:19)
[2018-01-27] MEDS: SODIUM CHLORIDE 0.9% FLUSH 10 ML IV ×2 (09:20→20:50)
[2018-01-27] MEDS: PANTOPRAZOLE 40 MG VIAL IV (09:20)
[2018-01-27] MEDS: TIMOLOL 0.25% OPHTH 1 DROPS EYE-BOTH ×2 (09:20→21:05)
--- NOTE | 2018-01-27 10:04 | PC.NURSE ---
Addendum entered by Andreas Nguyen R.N. 01/27/18 14:57: Dsg noted to be oozing from left and right side sang drainage of moderate amount. Dsg was previously reinforced prior to paging MD. Removed previously reinforced dsg as well as outer dsg done by Dr. Castaneda this AM. Left intact pressure dsg and placed by Dr. Castaneda. Cleansed outer area with SNS and replaced 4x4s and abd pads. Secured with paper tape. Pt tolerated well. Original Note: Addendum entered by Andreas Nguyen R.N. 01/27/18 13:35: 1300- Dr. Young on rounds. Reported UOP 100 ml. Verbal order received for NS 250 ML IV Bolus x [address] Castaneda regarding moderate amount of sang drainage to abd dressing. VSS. Awaiting call back. Original Note: Pt agreeable to get up to chair. Log rolled and sat up to edge of bed with 1PA. Stood, pivoted, and transferred to chair with CGA, Gait Belt, FWW, yellow socks. Pt tolerated well. Reports pain 5/10 after transferring to chair which is much improved from initial pain assessment of 8/10 at rest. Pt is using CHIEF SECURITY AND SAFETY OFFICER appropriately. Call light in easy reach. Pt agrees to use call light for all needs and agrees not to get up without assistance.
--- NOTE | 2018-01-27 11:30 | DI.RAD.S_ITS ---
PROCEDURE: XR CHEST FOR PICC 1V INDICATIONS: picc placed COMPARISON: None. FINDINGS: PICC was placed by the intravenous therapy team from the right side. Fluoroscopic spot film demonstrates tip of PICC in the distal SVC. NG tube projects grossly GE junction into the proximal stomach. IMPRESSION: Tip of PICC lies within the distal SVC. Dictated by: Kristal De Leon MD, PhD on 01/27/2018 at 12:17 Approved by: Kristal De Leon MD, PhD on 01/27/2018 at 12:18
[2018-01-27] MEDS: INSULIN ASPART 100 UNIT/ML INSULN PEN SUBCUT ×2 (12:21→18:11)
--- NOTE | 2018-01-27 12:46 | PT.IPTN ---
Current Diagnoses Hypokalemia (01/24/18) Essential (primary) hypertension (01/24/18) Lobar pneumonia, unspecified organism (01/24/18) Unspecified intestinal obstruction, unspecified as to partial versus complete obstruction (01/24/18) Age-related osteoporosis without current pathological fracture (01/24/18) Disorder of kidney and ureter, unspecified (01/24/18) Multiple fractures of ribs, left side, initial encounter for closed fracture (01/24/18) Acquired absence of kidney (01/24/18) Surgery Performed Operation Date: 01/26/18 14:30 Actual Procedures p Exploratory Laparotomy - Joel Castaneda MD Physical Therapy Treatment Note M3 PT-IP Subjective Start: 01/27/18 12:45 Freq: NEEDED Status: Active Protocol: Document 01/27/18 12:45 AB (Rec: 01/27/18 12:46 AB [id number]) Subjective Physical Therapy Visit Type Notes called to ICU and nurse stated that they are putting a picc line on pt and will take ~ 40 min. jared check on pt this afternoon.
--- NOTE | 2018-01-27 12:58 | PM.PN.1 ---
Subjective Date Patient Seen: 01/27/18 Interval history: Events reviewed. Patient was in significant pain earlier. Pain control improved after RN ORTHOPEDIC adjusted. Low urine output Patient was up in a chair earlier, she is awake and alert , conversant now Exam Vital Signs (past 8 hours): - 01/27/18 06:09 01/27/18 07:23 01/27/18 08:00 Temperature 97.5 F L Pulse Rate 80 84 Respiratory Rate 10 L Blood Pressure 143/92 H 145/83 H Pulse Oximetry 95 95 96 01/27/18 10:47 01/27/18 11:53 01/27/18 12:07 Temperature 97.4 F L Pulse Rate 77 82 Respiratory Rate 18 20 Blood Pressure 122/88 124/82 Pulse Oximetry 94 96 Fraction of Inspired Oxygen 24 Oxygen Delivery Method Nasal Cannula Oxygen Flow Rate 3 Narrative Exam Narrative: Pleasant female, awake and alert Lungs: clear to auscultation CV: RRR nl Sl s2 2/6 MISSY ABd: soft/ dressing with some oozing of blood NGT in place, blanton in place Ext: no edema Objective Labs Result Diagrams: 01/27/18 04:36 01/27/18 04:36 Labs: Laboratory Results - last 24 hr 01/26/18 01/27/18 01/27/18 17:50 04:36 04:36 WBC 9.8 RBC 4.08 Hgb 12.3 Hct 37.3 MCV 91.4 MCH 30.1 MCHC 32.9 RDW 14.6 Plt Count 300 Neut % (Auto) 76.9 H Lymph % (Auto) 14.9 L [place] % (Auto) 6.4 Eos % (Auto) 1.6 L Baso % (Auto) 0.2 Neut # (Auto) 7500 H Sodium Potassium Chloride Carbon Dioxide BUN Creatinine Estimated GFR BUN/Creatinine Ratio Glucose Calcium Magnesium Procalcitonin 2.44 H Nasal Screen MRSA (PCR) Negative for mrsa 01/27/18 04:36 WBC RBC Hgb Hct MCV MCH MCHC RDW Plt Count Neut % (Auto) Lymph % (Auto) [place] % (Auto) Eos % (Auto) Baso % (Auto) Neut # (Auto) Sodium 142 Potassium 3.6 Chloride 106 Carbon Dioxide 25 BUN 18 H Creatinine 1.10 H Estimated GFR 48.3 L BUN/Creatinine Ratio 16.4 Glucose 96 Calcium 8.4 Magnesium 1.6 Procalcitonin Nasal Screen MRSA (PCR) Assessment & Plan (1) Pneumonia: Problem details: Agree with Zosyn given recent hospitalization Qualifiers: Aspiration pneumonia type: Laterality: bilateral Lung location: lower lobe of lung Pneumonia type: due to unspecified organism Qualified Code(s): J18.1 - Lobar pneumonia, unspecified organism Current visit: Yes Status: Acute (2) SBO (small bowel obstruction): Problem details: S/p Exploratory Lap. Making good progress Current visit: Yes Status: Acute (3) Renal insufficiency, mild: Problem details: Improved with IV hydration Current visit: Yes Status: Acute (4) Hypertension: Problem details: IV Lopressor as needed Current visit: Yes Status: Acute (5) S/P exploratory laparotomy: Current visit: Yes Status: Acute (6) Urinary tract infection: Problem details: On Zosyn, growing citrobacter, awaiting sensitivities Current visit: Yes Status: Acute
[2018-01-27] MEDS: SODIUM CHLORIDE 0.9% 250 ML 500 ML IV (13:15)
[2018-01-27] MEDS: ENOXAPARIN 40 MG/0.4 ML SYRINGE SUBCUT (14:15)
[2018-01-27] MEDS: HYDROMORPHONE PCA 6 MG/30 ML PCA.VIAL 1 MG IV ×2 (14:21→20:45)
--- NOTE | 2018-01-27 14:49 | PT.IIE ---
Current Diagnoses Hypokalemia (01/24/18) Essential (primary) hypertension (01/24/18) Lobar pneumonia, unspecified organism (01/24/18) Unspecified intestinal obstruction, unspecified as to partial versus complete obstruction (01/24/18) Age-related osteoporosis without current pathological fracture (01/24/18) Disorder of kidney and ureter, unspecified (01/24/18) Urinary tract infection, site not specified (01/24/18) Multiple fractures of ribs, left side, initial encounter for closed fracture (01/24/18) Acquired absence of kidney (01/24/18) Other specified postprocedural states (01/24/18) Surgery Performed Operation Date: 01/26/18 14:30 Actual Procedures p Exploratory Laparotomy GEN - Joel Castaneda MD Surgical History (Last Reviewed 01/25/18 @ 19:07 by Joel Castaneda MD) History of lumpectomy (Acute) History of nephrectomy (Acute) History of repair of aneurysm of abdominal aorta using endovascular stent graft (Acute) Medical History (Last Updated 01/25/18 @ 19:06 by Joel Castaneda MD) 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, unilateral (Acute) Small bowel obstruction, partial (Acute) Age-related osteoporosis without current pathological fracture (Chronic) Aortic aneurysm of unspecified site, without rupture (Chronic) Chronic pain syndrome (Chronic) Essential (primary) hypertension (Chronic) GERD (gastroesophageal reflux disease) (Chronic) Headache (Chronic) Heart failure (Chronic) Hyperglycemia (Chronic) Hyperlipidemia (Chronic) Insomnia (Chronic) Major depressive disorder, recurrent, moderate (Chronic) Mixed hyperlipidemia (Chronic) 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) Sleep apnea (Chronic) Spinal stenosis of lumbar region (Chronic) Vitamin D deficiency (Chronic) History of fracture of right hip (Resolved) Physical Therapy Inpatient Evaluation/Re-Eval M1 PT/OT-IP Prior Functional Status Start: 01/27/18 12:45 Freq: NEEDED Status: Active Protocol: Document 01/27/18 14:17 LRN (Rec: 01/27/18 14:49 LRN [id number]) Medical Review Prior Functional Status Medical History Reviewed Yes Diet/Fluid Consistency NPO Communication Good verbal skills Mobility and Gait Gait with walker Activities of Daily Living and IADL's Assist required Prior Functional Level (Other details) Resident at [facility] ([facility]) Social History Household Members none Living Arrangements Skilled Nurse Facility M2 PT-IP Current Condition Start: 01/27/18 12:45 Freq: NEEDED Status: Active Protocol: Document 01/27/18 14:17 LRN (Rec: 01/27/18 14:49 LRN [email or web address]) Physical Therapy Current Condition Current Condition Evaluation Date 01/27/18 Treatment Diagnosis 01/24/18: L sided Chest Pain SBO Onset Date 01/24/18 Precautions Abdominal Surgery Precautions Log Roll Lifting Restrictions Other Precautions Gait belt high on chest due to PICC line and abdominal incision. M3 PT-IP Subjective Start: 01/27/18 12:45 Freq: NEEDED Status: Active Protocol: Document 01/27/18 14:17 LRN (Rec: 01/27/18 14:49 LRN [email or web address]) Subjective Physical Therapy Visit Type Type Initial Evaluation Visit Start Time 13:45 Visit Stop Time 14:25 Total Visit Minutes 40 Number of MOTOR TUNE UP SPECIALIST Visits 0 Physical Therapy Visit Comments Patient Comments Pt reports pain is 4/10 after getting out of bed. Nsg states pain was 6-7/10 in bed. Patient Goals Pt goal is to get well enough eventually to be in an independent living space that can transition to assisted living without having to move . Therapy Pain Assessment Pain When Pain Assessed After Treatment Pain Present Pain Present Pain Reported Location Abdomen Intensity 4 M4 PT-IP Mobility and Gait Start: 01/27/18 12:45 Freq: NEEDED Status: Active Protocol: Document 01/27/18 14:17 LRN (Rec: 01/27/18 14:49 LRN [id number]) PT-Bed Mobility Assessment Rolling Type of Rolling Log Rolling Roll to Left Level of Assist Minimal Assistance Supine to Sit Supine to Sit Moderate Assistance Sit to Supine Sit to Supine Minimal Assistance Scooting Scooting to Edge of Bed Contact Guard Assistance PT-Transfer Assessment Sit to and From Stand Sit to and from Stand Contact Guard Assistance Equipment Transfer Assistive Device Gait Belt Front Wheeled Walker Transfers Transfer Destination Chair Transfer Ability Level of Assist Contact Guard Assistance Comments Mobility Comments Pt bent forward due to abdominal pain. Gait Assessment Gait Gait Assistance Required: Contact Guard Assist Distance (Feet) 10 Able to Maintain Weight Bearing Status Yes During Gait Assistive Devices Assistive Device Gait Belt Front Wheeled Walker Gait Deviations General Gait Pattern Decreased Stride Length Flexed Trunk Comments Gait Comments 5' making it just out of the room and turned with assist of FWW back to room to sit in chair. Nurse was present to assist with IV pole and O2 tank. PT-Balance Assessment Sitting Balance and Reactions Static Sitting Balance Ability Good Standing Balance and Reactions Static Standing Balance Ability Good Comments Other Balance Tests/Deviations/Treatment Pt stood bedside without use : of Assist device, independently. M5 PT-IP Objective Assessments Start: 01/27/18 12:45 Freq: NEEDED Status: Active Protocol: Document 01/27/18 14:17 LRN (Rec: 01/27/18 14:49 LRN [id number]) Orientation Orientation/Cognition Level of Alertness Alert Orientation Name Place Situation Language Function Ability No Deficits Noted Safety Awareness Understands Safety Issues Memory Description No Deficits Noted Gross Range of Motion Upper Extremity ROM Assessment Within Functional Limits Lower Extremity ROM Assessment Within Functional Limits Impairments Movement of RLE limited due to L lateral trunk pain. Strength Upper Extremity Strength Assessment Bilaterally Impaired Lower Extremity Strength Assessment Bilaterally Impaired Comments Strength Comments Strength impaired due to rib fracture and abdominal incision pain. M7 PT-IP Assessment and Plan Start: 01/27/18 12:45 Freq: NEEDED Status: Active Protocol: Document 01/27/18 14:17 LRN (Rec: 01/27/18 14:49 LRN [id number]) PT Summary Assessment and Plan Potential Rehabilitation Potential Good Status of Condition at Evaluation Evolving Summary Impairments Pain ROM Strength Transfers Gait Activity Tolerance Assessment Summary Pt is limited in mobility at this time due to incisional and abdominal pain, and with UE's limited due to rib fracture pain. The pt requires assist with functional activities due to her pain and her fear of falling. She would not be safe for independent living at this time. Goals Bed Mobility Goal Standby Assistance Transfer Goal Standby Assistance Gait Goal Standby Assistance Front Wheel Walker Gait Distance 50' Days to Meet Goals 2 Frequency of Treatment Frequency Of Treatment Twice a Day Treatment Plan Physical Therapy Treatment Plan Transfer Training Gait Training Therapeutic Exercise Post Op Education Other Recommendations and Next Treatment Gait belt high due to Focus abdominal incision and PICC line. Teach pt deep breathing , start gentle LE/UE ROM ex's, progress to SBA for transfers and gait. Recommendations To Nursing Amount of Assist Needed 1 Person Assist Discharge Recommendations PT Discharge Recommendations SNF Rehab
--- NOTE | 2018-01-27 17:29 | PC.NURSE ---
Pts. abdominal incision oozing small amt. of serosanguinous drainage to the left side of abdomen. Peeled off top abd. drsg and reinforced with 4x4 gauze and 2 abd. over it. Drsg. that was removed was not saturated with drainage. Will continue to monitor.
--- NOTE | 2018-01-27 17:57 | PC.NURSE ---
Dr. Castaneda here and informed of pts. wound drainage status. Pt. status is changed to floor care. Plan to start TPN tomorrow.
[2018-01-27] MEDS: SODIUM CHLORIDE 0.9% 1,000 ML 250 ML IV (18:53)
[2018-01-27] MEDS: LATANOPROST 0.005% OPHTH 2.5 ML 1 DROPS EYE-BOTH (20:49)
[2018-01-27] MEDS: HYDROCORTISONE 1% CREAM 28 GM 1 APPLIC TOP (20:51)
--- NOTE | 2018-01-27 22:59 | PC.NURSE ---
Cleared 4.4 mg of the Dilaudid FIELD SERVICE ANALYST.
[2018-01-28] VITALS (10 sets, daily range): BP systolic 80–184; BP diastolic 52–99; PULSE 70–109; RESP 15–18; TEMP 36.1–36.8; O2SAT 94–99
--- NOTE | 2018-01-28 00:34 | PC.NURSE ---
Addendum entered by Lara Poole R.N. 01/28/18 05:58: UO this shift [address] Kim made aware, plan to monitor. H/H 9.3/27.2 this am down from 12.3/37.3 accompanied by moderate oozing to ABD incision. Since the dressing change the oozing has slowed, dressing currently CDI. Plan to repeat H/H at noon today. Original Note: 2330 On initial assessment ABD dressing intact with a good amount of shadow drainage but no active oozing/leaking noted. Pt declined offered dressing change. 0030 pt being repositioned and noted increased shadowing and oozing from left side. Complete dressing takedown performed, cleansed with SNS. Continuous oozing noted to umbilicus area with a large clot forming in the umbilicus all the way down the sides within the abd fold. New dressing applied. Dr. Eid notified of increase in wound drainage and clotting. No new orders.
[2018-01-28] MEDS: PIPERACILLIN-TAZO 3.375 GM/50 ML FROZ.PIGGY IV ×4 (05:09→23:59)
[2018-01-28 05:28] LABS: Add Manual Diff / Slide Review NO; Basophils Percent Auto 0.3 % (0-2); Eosinophils Percent Auto 2.3 % (2-4); Hematocrit 27.2 % (36-46); Hemoglobin 9.3 g/dL (12.0-16.0); Lymphocytes Percent Auto 18.7 % (25-40); Mean Corpuscular HGB Conc 34.1 % (30-36); Mean Corpuscular Hemoglobin 30.9 PG (26-34); Mean Corpuscular Volume 90.7 fL (80-100); Monocytes Percent Auto 8.9 % (3-14); Neutrophils Absolute Auto 7100 /uL (3000-5900); Neutrophils Percent Auto 69.8 % (50-75); Platelet Count 270 X10^3/uL (150-400); Red Cell Distribution Width 14.7 % (11.6-14.8); White Blood Cell Count 10.1 X10^3/uL (4.5-11.0)
[2018-01-28 05:37] LABS: Alanine Aminotransferase 18 IU/L (9-52); Albumin 2.7 g/dL (3.5-5.0); Albumin Globulin Ratio 1.1 (1.0-2.8); Alkaline Phosphatase 40 U/L (38-126); Aspartate Aminotransferase 28 IU/L (14-36); BUN Creatinine Ratio 15.6 (6-22); Bilirubin Total 0.4 mg/dL (0.2-1.3); Blood Urea Nitrogen 14 mg/dL (7-17); Calcium 8.1 mg/dL (8.4-10.2); Carbon Dioxide 28 mmol/L (22-32); Chloride 111 mmol/L (98-107); Estimated Glomerular Filt Rate > 60.0 mL/min (>60); Globulin 2.4 g/dL (1.7-4.1); Glucose 160 mg/dL (80-110); HEMOLYSIS 25 (0-50); Phosphorous 1.4 mg/dL (2.8-4.1); Potassium 3.8 mmol/L (3.4-5.1); Sodium 145 mmol/L (137-145); Total Protein 5.1 g/dL (6.3-8.2)
[2018-01-28] MEDS: INSULIN ASPART 100 UNIT/ML INSULN PEN SUBCUT ×2 (06:03→12:37)
[2018-01-28] MEDS: HYDROMORPHONE PCA 6 MG/30 ML PCA.VIAL 1 MG IV ×3 (06:05→21:15)
[2018-01-28] MEDS: HYDROMORPHONE 2 MG INJ 1 MG IV (08:13)
[2018-01-28] MEDS: TIMOLOL 0.25% OPHTH 1 DROPS EYE-BOTH ×2 (08:13→21:11)
[2018-01-28] MEDS: ENOXAPARIN 40 MG/0.4 ML SYRINGE SUBCUT (08:14)
[2018-01-28] MEDS: PANTOPRAZOLE 40 MG VIAL IV (08:14)
[2018-01-28] MEDS: SODIUM CHLORIDE 0.9% FLUSH 10 ML IV (08:17)
[2018-01-28] MEDS: DEXTROSE 5%-NS W/KCL 20MEQ 1,000 ML 100 MEQ IV (08:28)
--- NOTE | 2018-01-28 10:55 | PT.IPTN ---
Current Diagnoses Hypokalemia (01/24/18) Essential (primary) hypertension (01/24/18) Lobar pneumonia, unspecified organism (01/24/18) Unspecified intestinal obstruction, unspecified as to partial versus complete obstruction (01/24/18) Age-related osteoporosis without current pathological fracture (01/24/18) Disorder of kidney and ureter, unspecified (01/24/18) Urinary tract infection, site not specified (01/24/18) Multiple fractures of ribs, left side, initial encounter for closed fracture (01/24/18) Acquired absence of kidney (01/24/18) Other specified postprocedural states (01/24/18) Surgery Performed Operation Date: 01/26/18 14:30 Actual Procedures p Exploratory Laparotomy - Joel Castaneda MD Physical Therapy Treatment Note M2 PT-IP Current Condition Start: 01/27/18 12:45 Freq: NEEDED Status: Active Protocol: Document 01/27/18 14:17 LRN (Rec: 01/27/18 14:49 LRN [id number]) Physical Therapy Current Condition Current Condition Evaluation Date 01/27/18 Treatment Diagnosis 01/24/18: L sided Chest Pain SBO Onset Date 01/24/18 Precautions Abdominal Surgery Precautions Log Roll Lifting Restrictions Other Precautions Gait belt high on chest due to PICC line and abdominal incision. M3 PT-IP Subjective Start: 01/27/18 12:45 Freq: NEEDED Status: Active Protocol: Document 01/28/18 10:55 GGD (Rec: 01/28/18 14:37 GGD [id number]) Subjective Physical Therapy Visit Type Type Treatment Note Visit Start Time 10:30 Visit Stop Time 10:55 Total Visit Minutes 25 Number of INTERVENTIONAL RADIOLOGY TECH Visits 1 Physical Therapy Visit Comments Patient Comments Pt states she would like to get up out of bed. Therapy Pain Assessment Pain When Pain Assessed At Rest Pain Present Pain Present Pain Reported Location Abdomen Intensity 6 Scale Used Numeric (1 - 10) M4 PT-IP Mobility and Gait Start: 01/27/18 12:45 Freq: NEEDED Status: Active Protocol: Document 01/28/18 10:55 GGD (Rec: 01/28/18 14:37 GGD [id number]) PT-Bed Mobility Assessment Rolling Type of Rolling Log Rolling Roll to Left Level of Assist Minimal Assistance 1 Person Assistance Supine to Sit Supine to Sit Moderate Assistance 1 Person Assistance Bedrails Scooting Scooting to Edge of Bed Contact Guard Assistance PT-Transfer Assessment Sit to and From Stand Sit to and from Stand Contact Guard Assistance Use of Upper Extremities Equipment Transfer Assistive Device Gait Belt Front Wheeled Walker Orthotic/Prosthetic Devices or Brace: No Transfers Transfer Destination Chair Transfer Ability Level of Assist Contact Guard Assistance Gait Assessment Gait Gait Assistance Required: Contact Guard Assist Distance (Feet) 60 Able to Maintain Weight Bearing Status Yes During Gait Assistive Devices Assistive Device Gait Belt Front Wheeled Walker Gait Deviations General Gait Pattern Decreased Stride Length Flexed Trunk Factors Limiting Gait Function Factors Limiting Gait Function Decreased Activity Tolerance Decreased Strength Pain M5 PT-IP Objective Assessments Start: 01/27/18 12:45 Freq: NEEDED Status: Active Protocol: Document 01/27/18 14:17 LRN (Rec: 01/27/18 14:49 LRN [id number]) Orientation Orientation/Cognition Level of Alertness Alert Orientation Name Place Situation Language Function Ability No Deficits Noted Safety Awareness Understands Safety Issues Memory Description No Deficits Noted Gross Range of Motion Upper Extremity ROM Assessment Within Functional Limits Lower Extremity ROM Assessment Within Functional Limits Impairments Movement of RLE limited due to L lateral trunk pain. Strength Upper Extremity Strength Assessment Bilaterally Impaired Lower Extremity Strength Assessment Bilaterally Impaired Comments Strength Comments Strength impaired due to rib fracture and abdominal incision pain. M7 PT-IP Assessment and Plan Start: 01/27/18 12:45 Freq: NEEDED Status: Active Protocol: Document 01/28/18 10:55 GGD (Rec: 01/28/18 14:37 GGD [id number]) PT Summary Assessment and Plan Summary Assessment Summary Pt was able to progress gait. She had improved posture with gait with min cues. She needed assist with bed mobility. She did need assist with bed mobility and had increase in pain with mobility. Frequency of Treatment Frequency Of Treatment Twice a Day Recommendations To Nursing Amount of Assist Needed 1 Person Assist Discharge Recommendations PT Discharge Recommendations SNF Rehab
--- NOTE | 2018-01-28 14:12 | PC.NURSE ---
Pt transferred to room 228 a couple of hours ago. NG hooked up to LIS and putting out a black/green colored bile. She enjoys her ice chips and she denies discomfort at this time. Using Dilaudid DIGITAL PROGRAM MANAGER for comfort and helpful. Family in visiting now and she is doing well.
--- NOTE | 2018-01-28 14:24 | P.PN_ITS ---
Subjective Date Patient Seen: 01/28/18 Time Patient Seen: 11:20 Interval history: History of present illness Patient is postop day 2. After undergoing small bowel obstruction several days ago with lysis of adhesions Review of systems No chest pain or shortness of breath no nausea Patient does note discomfort in the region of the incision Exam Vital Signs (past 8 hours): - 01/28/18 08:07 01/28/18 08:30 01/28/18 12:00 Temperature 97.5 F L 97.0 F L Pulse Rate 74 74 Respiratory Rate 16 18 Blood Pressure 177/91 H 152/95 H Pulse Oximetry 99 94 98 Fraction of Inspired Oxygen 24 Oxygen Delivery Method Nasal Cannula Oxygen Flow Rate 3 Narrative Exam Narrative: General appearance patient is not awake and alert in no apparent distress at rest Psychiatric well oriented to time place and person mood is pleasant affect is appropriate Respiratory fairly clear to auscultation no wheezes no crackles good airflow Cardiovascular regular rate rhythm no murmurs GI bandage noted, diminished bowel sounds, tenderness noted to mild palpation Neurologic no focal neurologic changes cranial nerves 2-12 grossly intact Objective Labs Result Diagrams: 01/28/18 05:00 01/28/18 05:00 Labs: Laboratory Results - last 24 hr 01/28/18 01/28/18 05:00 05:00 WBC 10.1 RBC 3.00 L Hgb 9.3 L Hct 27.2 L MCV 90.7 MCH 30.9 MCHC 34.1 RDW 14.7 Plt Count 270 Neut % (Auto) 69.8 Lymph % (Auto) 18.7 L [place] % (Auto) 8.9 Eos % (Auto) 2.3 Baso % (Auto) 0.3 Neut # (Auto) 7100 H Sodium 145 Potassium 3.8 Chloride 111 H Carbon Dioxide 28 BUN 14 Creatinine 0.90 Estimated GFR > 60.0 BUN/Creatinine Ratio 15.6 Glucose 160 H Calcium 8.1 L Phosphorus 1.4 L Total Bilirubin 0.4 AST 28 ALT 18 Alkaline Phosphatase 40 Total Protein 5.1 L Albumin 2.7 L Globulin 2.4 Albumin/Globulin Ratio 1.1 Assessment & Plan Plan: Assessment/Plan Narrative: Pneumonia: Zosyn given recent hospitalization lower lobe of lung is site of pneumonia Empiric treatment provided SBO (small bowel obstruction): S/p Exploratory Lap January 26 Patient is postop day 2. Today Patient NPO. Diet to be advanced per surgeon's instruction Acute Renal insufficiency Improved with IV hydration Patient's serum creatinine is corrected to normal as of this morning January 28 Hypertension: IV Lopressor as needed Urinary tract infection: On Zosyn, growing citrobacter, awaiting sensitivities Time Spent With Patient Time with patient: 25 - 35 minutes (25 min)
[2018-01-28 14:41] LABS: Hematocrit 26.3 % (36-46); Hemoglobin 8.7 g/dL (12.0-16.0)
--- NOTE | 2018-01-28 15:29 | PC.NURSE ---
Pts dressing saturated with bloody drainage around 1450 with a medium sized clot on gauze. Pts area cleaned up and there is a small place on praxoimal part of incision that is oozing. Dr. Eid did put a couple of more sutures in pts today. Crit is 26 at 1300. Pt is stable and resting comfortably. Per Family was going to start TPN orders for patient last night and that was not ordered. Faxed MD Eid and he is aware of this all.
--- NOTE | 2018-01-28 15:42 | PT.IPTN ---
Current Diagnoses Hypokalemia (01/24/18) Essential (primary) hypertension (01/24/18) Lobar pneumonia, unspecified organism (01/24/18) Unspecified intestinal obstruction, unspecified as to partial versus complete obstruction (01/24/18) Age-related osteoporosis without current pathological fracture (01/24/18) Disorder of kidney and ureter, unspecified (01/24/18) Urinary tract infection, site not specified (01/24/18) Multiple fractures of ribs, left side, initial encounter for closed fracture (01/24/18) Acquired absence of kidney (01/24/18) Other specified postprocedural states (01/24/18) Surgery Performed Operation Date: 01/26/18 14:30 Actual Procedures p Exploratory Laparotomy - Joel Castaneda MD Physical Therapy Treatment Note M2 PT-IP Current Condition Start: 01/27/18 12:45 Freq: NEEDED Status: Active Protocol: Document 01/27/18 14:17 LRN (Rec: 01/27/18 14:49 LRN [email or web address]) Physical Therapy Current Condition Current Condition Evaluation Date 01/27/18 Treatment Diagnosis 01/24/18: L sided Chest Pain SBO Onset Date 01/24/18 Precautions Abdominal Surgery Precautions Log Roll Lifting Restrictions Other Precautions Gait belt high on chest due to PICC line and abdominal incision. M3 PT-IP Subjective Start: 01/27/18 12:45 Freq: NEEDED Status: Active Protocol: Document 01/28/18 15:39 GGD (Rec: 01/28/18 15:41 GGD [id number]) Subjective Physical Therapy Visit Type Type Patient Refusal Notes Pt refused she states that she is tired and had a very busy afternoon. Frequency of Treatment Frequency Of Treatment Twice a Day Recommendations To Nursing Amount of Assist Needed 1 Person Assist Discharge Recommendations PT Discharge Recommendations SNF Rehab
[2018-01-28] MEDS: POTASSIUM PHOSPHATE 15 MMOL in DEXTROSE 5% IN WATER 250 ML 63.75 ML IV (16:09)
[2018-01-28] MEDS: METOPROLOL TARTRATE 5 MG/5 ML INJ IV (16:15)
[2018-01-28] MEDS: AA 5 %/CALCIUM/LYTES/DEXT 20 % 1,000 ML with MULTIVITAMIN 10 ML, TRACE ELEMENTS 1 ML, F... 42.254 ML IV (17:18)
[2018-01-28] MEDS: FAT EMULSIONS 50 GM/250 ML EMULSION IV (17:18)
--- NOTE | 2018-01-28 19:46 | PM.PNPO.1 ---
Subjective Date Patient Seen: 01/28/18 Time Patient Seen: 19:00 Interval history: Patient was actually seen twice today. Early this morning I sutured her wound is it was oozing. It appeared to be controlled but the continued ooze through the day though not quite at so vigorous celebrate. Her pain in her abdomen is well controlled. I saw her again this evening. She has not had any bowel function. Exam Vital Signs (past 8 hours): - 01/28/18 12:00 01/28/18 15:25 01/28/18 16:10 Temperature 97.0 F L 96.9 F L Pulse Rate 74 77 78 Respiratory Rate 18 18 Blood Pressure 152/95 H 182/91 H 184/99 H Pulse Oximetry 98 97 01/28/18 16:50 Temperature Pulse Rate Respiratory Rate Blood Pressure Pulse Oximetry 95 Fraction of Inspired Oxygen 24 Oxygen Delivery Method Nasal Cannula Oxygen Flow Rate 2 Narrative Exam Narrative: Lungs are clear to auscultation no rales or rhonchi heart regular rate and rhythm no murmur gallop abdomen is flat soft with in whose Ng area just below the umbilicus. Objective Labs Result Diagrams: 01/28/18 14:02 01/28/18 05:00 Labs: Laboratory Results - last 24 hr 01/28/18 01/28/18 01/28/18 05:00 05:00 14:02 WBC 10.1 RBC 3.00 L Hgb 9.3 L 8.7 L Hct 27.2 L 26.3 L MCV 90.7 MCH 30.9 MCHC 34.1 RDW 14.7 Plt Count 270 Neut % (Auto) 69.8 Lymph % (Auto) 18.7 L [place] % (Auto) 8.9 Eos % (Auto) 2.3 Baso % (Auto) 0.3 Neut # (Auto) 7100 H Sodium 145 Potassium 3.8 Chloride 111 H Carbon Dioxide 28 BUN 14 Creatinine 0.90 Estimated GFR > 60.0 BUN/Creatinine Ratio 15.6 Glucose 160 H Calcium 8.1 L Phosphorus 1.4 L Total Bilirubin 0.4 AST 28 ALT 18 Alkaline Phosphatase 40 Total Protein 5.1 L Albumin 2.7 L Globulin 2.4 Albumin/Globulin Ratio 1.1 Assessment & Plan Post-op Postoperative Procedures Operation Date: 01/26/18 14:30 Actual Procedures Side Surgeon p Exploratory Laparotomy GEN Joel Castaneda MD Postoperative status narrative: This morning I prepped her wound with chlorhexidine alcohol and placed 230 sutures to try to control what appeared to be skin edge bleeding. This evening I prepped her skin with Betadine removed those stitches along with the steven in the area so I could examine the wound carefully. Once I did this there was no obvious bleeding site. So I sutured the wound closed with vertical mattress 2 0 nylon tying them quite snugly. There do not appear to be any further bleeding externally. New dressing was applied. Time Spent With Patient Greater than 35 minutes
[2018-01-28] MEDS: LATANOPROST 0.005% OPHTH 2.5 ML 1 DROPS EYE-BOTH (21:11)
--- NOTE | 2018-01-28 22:15 | PC.NURSE ---
PATIENTS BP DOWN 88/59 AND 80/52 , UPDATED NEW ORDER TO STOP CONTINUOUS DOSE ON FOREST FIRE WARDEN. PATIENT INFORMED ABOUT D/C OF CONTINUOUS DOSE BUT SHE CAN STILL USE BUTTON.NASAL CANNULA REPLACED TO NARES SATS 94% ON 2L
[2018-01-29] VITALS (18 sets, daily range): BP systolic 107–201; BP diastolic 64–120; PULSE 75–98; RESP 16–20; TEMP 35.8–36.8; O2SAT 89–100
--- NOTE | 2018-01-29 | DI.RAD.S_ITS ---
PROCEDURE: XR CHEST 1V INDICATIONS: evaluate gastric distention TECHNIQUE: One view of the chest was acquired. COMPARISON: [facility], CR, XR ACUTE ABDOMEN SERIES, 01/29/2018, 5:36. [facility], CR, XR CHEST FOR PICC 1V, 01/27/2018, 11:37. FINDINGS: Surgical changes and devices: NG tube projects past the GE junction. Lungs and pleura: No pleural effusions or pneumothorax. Lungs are clear. Mediastinum: Mediastinal contours appear normal. Heart size is normal. Bones and chest wall: No suspicious bony lesions. Overlying soft tissues appear unremarkable. There is marked gastric distention. Noted on the hemidiaphragms. IMPRESSION: 1. Marked gastric distention slightly diminished compared to abdominal series x-ray obtained 01/29/2018 at 0536 hours. 2. Pneumoperitoneum which could be related to recent exploratory laparotomy or bowel perforation. 3. Findings discussed with Dr. Eid on 01/29/2018 at 1059 hrs. Dictated by: Kristal De Leon MD, PhD on 01/29/2018 at 10:52 Approved by: Kristal De Leon MD, PhD on 01/29/2018 at 11:01
[2018-01-29] MEDS: DEXTROSE 5%-NS W/KCL 20MEQ 1,000 ML 100 MEQ IV ×3 (00:10→20:56)
[2018-01-29] MEDS: INSULIN ASPART 100 UNIT/ML INSULN PEN SUBCUT ×4 (00:14→18:27)
[2018-01-29] MEDS: BENZOCAINE/MENTHOL 1 LOZ PKT 1 EACH PO (03:43)
[2018-01-29 06:03] LABS: Alanine Aminotransferase 18 IU/L (9-52); Albumin 2.3 g/dL (3.5-5.0); Alkaline Phosphatase 37 U/L (38-126); Aspartate Aminotransferase 28 IU/L (14-36); BUN Creatinine Ratio 13.3 (6-22); Bilirubin Total 0.2 mg/dL (0.2-1.3); Blood Urea Nitrogen 12 mg/dL (7-17); Calcium 7.9 mg/dL (8.4-10.2); Carbon Dioxide 27 mmol/L (22-32); Chloride 108 mmol/L (98-107); Estimated Glomerular Filt Rate > 60.0 mL/min (>60); Globulin 2.2 g/dL (1.7-4.1); Glucose 280 mg/dL (80-110); HEMOLYSIS < 15 (0-50); Potassium 3.8 mmol/L (3.4-5.1); Sodium 141 mmol/L (137-145); Total Protein 4.5 g/dL (6.3-8.2)
[2018-01-29 06:17] LABS: Mean Corpuscular HGB Conc 33.4 % (30-36); Mean Corpuscular Hemoglobin 30.6 PG (26-34); Mean Corpuscular Volume 91.6 fL (80-100); Platelet Count 243 X10^3/uL (150-400); Red Blood Cell Count 2.02 X10^6/uL (4.0-5.2); Red Cell Distribution Width 14.7 % (11.6-14.8)
[2018-01-29 06:25] LABS: White Blood Cell Count 15.1 X10^3/uL (4.5-11.0)
[2018-01-29 06:26] LABS: Hemoglobin 6.2 g/dL (12.0-16.0)
[2018-01-29 06:27] LABS: Hematocrit 18.5 % (36-46)
[2018-01-29] MEDS: PIPERACILLIN-TAZO 3.375 GM/50 ML FROZ.PIGGY IV ×4 (06:34→20:57)
[2018-01-29] MEDS: HYDROMORPHONE PCA 6 MG/30 ML PCA.VIAL IV ×3 (06:35→20:53)
[2018-01-29 06:51] LABS: Add Manual Diff / Slide Review YES
[2018-01-29] MEDS: ONDANSETRON 4 MG/2 ML INJ IV (06:56)
--- NOTE | 2018-01-29 07:00 | DI.RAD.S_ITS ---
PROCEDURE: XR ACUTE ABDOMEN SERIES INDICATIONS: follow up for small bowel obstruction and pneumonia TECHNIQUE: One view chest and two views of the abdomen were acquired. COMPARISON: [facility], CR, XR ACUTE ABDOMEN SERIES, 01/26/2018, 8:38. FINDINGS: Surgical changes and devices: NG tube projects across the GE junction is coiled within the gastric body. Aortic endovascular stent graft is noted. Postsurgical changes compatible with ORIF of right femoral neck fracture. Chest: Lungs are clear. Heart size is normal. No pleural effusions. Possible free air noted on the hemidiaphragms left greater than right. Abdomen: There are multiple dilated loops of small bowel measuring up to 5.7 cm. No suspicious calcifications. Visualized solid organ contours appear normal. Bones: No suspicious bony lesions. IMPRESSION: 1. Dilated loops of small bowel compatible small bowel obstruction. Loops of small bowel which have increased in size and number compared to 01/26/2018. 2. Possible pneumoperitoneum. 3. Findings discussed with Dr. Soriano on 01/29/[address] Soriano reports patient had laparoscopic exploratory surgery on 01/26/2018. Dictated by: Kristal De Leon MD, PhD on 01/29/2018 at 10:04 Approved by: Kristal De Leon MD, PhD on 01/29/2018 at 10:18
[2018-01-29 07:13] LABS: Basophilic Stippling 1+; Hypochromasia 1+; Neutrophils Absolute Manual 11476 /uL (3000-5900); Polychromasia 1+; Total Cells Counted 100
--- NOTE | 2018-01-29 07:41 | PC.NURSE ---
Lab called this AM w/ critical H&H of 6.[address] Graff notified via phone and order obtained for 2 units PRBC's. Orders entered into computer. Consent for blood products presented to pt for explanation/signature. Pt stated she wanted to think about it before accepting the 2 units ordered per MD.
[2018-01-29] MEDS: PANTOPRAZOLE 40 MG VIAL IV (08:41)
[2018-01-29] MEDS: SODIUM CHLORIDE 0.9% FLUSH 10 ML IV ×2 (08:41→20:48)
[2018-01-29] MEDS: TIMOLOL 0.25% OPHTH 1 DROPS EYE-BOTH ×2 (08:41→20:52)
--- NOTE | 2018-01-29 11:10 | PM.PNPO.1 ---
Subjective Date Patient Seen: 01/29/18 Time Patient Seen: 11:10 Interval history: Patient is a woman post laparotomy on the . She had a losing from her wound yesterday. She is asking about a blood transfusion. She does not have much abdominal pain. NG tube remains in place. She has a little bit of a sore throat. Exam Vital Signs (past 8 hours): - 01/29/18 04:00 01/29/18 07:38 01/29/18 08:12 Temperature 97.0 F L 97.2 F L Pulse Rate 93 H 91 H Respiratory Rate 16 18 Blood Pressure 144/64 H 142/91 H Pulse Oximetry 94 94 98 Fraction of Inspired Oxygen 24 Oxygen Delivery Method Nasal Cannula Oxygen Flow Rate 3 Narrative Exam Narrative: Lungs are fairly clear. Decreased in the bases. Heart regular rate and rhythm without murmur gallop. Abdomen is soft. There is no unusual tenderness. In fact she has very little tenderness even with fairly vigorous shaking. The dressing applied last night after opening and re-sutured ring her wound is dry. Objective Imaging Abdominal x-ray: My impression: The patient was noted to have free air and fairly massive distention of her stomach. Labs Result Diagrams: 01/29/18 05:02 01/29/18 05:02 Labs: Laboratory Results - last 24 hr 01/26/18 01/28/18 01/29/18 10:44 14:02 05:02 WBC 15.1 H RBC 2.02 L Hgb 8.7 L 6.2 L* Hct 26.3 L 18.5 L* MCV 91.6 MCH 30.6 MCHC 33.4 RDW 14.7 Plt Count 243 Neut % (Auto) Electric Pile Driver Operator Lymph % (Auto) Electric Pile Driver Operator [place] % (Auto) Electric Pile Driver Operator Eos % (Auto) Electric Pile Driver Operator Baso % (Auto) Electric Pile Driver Operator Neut # (Auto) Electric Pile Driver Operator Total Counted 100 Seg Neutrophils % 70.0 Band Neutrophils % 6.0 Lymphocytes % (Manual) 18.0 L Monocytes % (Manual) 3.0 Eosinophils % (Manual) 1.0 L Myelocytes % 2.0 H Neutrophils # (Manual) 24944 H RBC Morphology See below Polychromasia 1+ H Hypochromasia 1+ H Basophilic Stippling 1+ H Sodium Potassium Chloride Carbon Dioxide BUN Creatinine Estimated GFR BUN/Creatinine Ratio Glucose Calcium Phosphorus Total Bilirubin AST ALT Alkaline Phosphatase Total Protein Albumin Globulin Albumin/Globulin Ratio Blood Type AB Positive Antibody Screen Negative Crossmatch See Detail 01/29/18 05:02 WBC RBC Hgb Hct MCV MCH MCHC RDW Plt Count Neut % (Auto) Lymph % (Auto) [place] % (Auto) Eos % (Auto) Baso % (Auto) Neut # (Auto) Total Counted Seg Neutrophils % Band Neutrophils % Lymphocytes % (Manual) Monocytes % (Manual) Eosinophils % (Manual) Myelocytes % Neutrophils # (Manual) RBC Morphology Polychromasia Hypochromasia Basophilic Stippling Sodium 141 Potassium 3.8 Chloride 108 H Carbon Dioxide 27 BUN 12 Creatinine 0.90 Estimated GFR > 60.0 BUN/Creatinine Ratio 13.3 Glucose 280 H D Calcium 7.9 L Phosphorus 2.0 L Total Bilirubin 0.2 AST 28 ALT 18 Alkaline Phosphatase 37 L Total Protein 4.5 L Albumin 2.3 L Globulin 2.2 Albumin/Globulin Ratio 1.0 Blood Type Antibody Screen Crossmatch Assessment & Plan Post-op Postoperative Procedures Operation Date: 01/26/18 14:30 Actual Procedures Side Surgeon p Exploratory Laparotomy GEN Joel Castaneda MD Postoperative day: 3 Postoperative status: anemia (Acute blood-loss hematocrit down to 18.) Postoperative status narrative: NG tube was repositioned and the blue port had the valve removed and the tube was made to function properly. Repeat x-ray showed less distention of the stomach. Patient is noted to have free air. External bleeding seems to be under control. It is impossible to know if there is anything going on internally. All anticoagulants and anti-platelet agents have been stopped. Her platelet count is adequate/normal. Sugars have been markedly elevated since starting the TPN despite adding insulin to the bag. Postoperative plan narrative: I cleaned upper orders and removed the duplicate. I increased her to a high glucose control regimen with insulin. I added additional 10 units to the bag making a total of 20. Will continue with the same rate. I ordered 2 units of blood. Because of her age and overall status I will give her some Lasix between units. The phosphorus level is low in this patient so a K-Phos rider has been ordered. Time Spent With Patient Greater than 35 minutes
[2018-01-29] MEDS: METOPROLOL TARTRATE 5 MG/5 ML INJ IV ×3 (11:58→19:21)
--- NOTE | 2018-01-29 12:01 | PT.IPTN ---
Current Diagnoses Hypokalemia (01/24/18) Essential (primary) hypertension (01/24/18) Lobar pneumonia, unspecified organism (01/24/18) Unspecified intestinal obstruction, unspecified as to partial versus complete obstruction (01/24/18) Age-related osteoporosis without current pathological fracture (01/24/18) Disorder of kidney and ureter, unspecified (01/24/18) Urinary tract infection, site not specified (01/24/18) Multiple fractures of ribs, left side, initial encounter for closed fracture (01/24/18) Acquired absence of kidney (01/24/18) Other specified postprocedural states (01/24/18) Surgery Performed Operation Date: 01/26/18 14:30 Actual Procedures p Exploratory Laparotomy - Joel Castaneda MD Physical Therapy Treatment Note M2 PT-IP Current Condition Start: 01/27/18 12:45 Freq: NEEDED Status: Active Protocol: Document 01/27/18 14:17 LRN (Rec: 01/27/18 14:49 LRN [id number]) Physical Therapy Current Condition Current Condition Evaluation Date 01/27/18 Treatment Diagnosis 01/24/18: L sided Chest Pain SBO Onset Date 01/24/18 Precautions Abdominal Surgery Precautions Log Roll Lifting Restrictions Other Precautions Gait belt high on chest due to PICC line and abdominal incision. M3 PT-IP Subjective Start: 01/27/18 12:45 Freq: NEEDED Status: Active Protocol: Document 01/29/18 12:00 GGD (Rec: 01/29/18 12:01 GGD [id number]) Subjective Physical Therapy Visit Type Notes Hold due to low Hgb and Hct, and pt to receive blood. Frequency Of Treatment Twice a Day Recommendations To Nursing Amount of Assist Needed 1 Person Assist Discharge Recommendations PT Discharge Recommendations SNF Rehab
[2018-01-29] MEDS: POTASSIUM PHOSPHATE 15 MMOL in DEXTROSE 5% IN WATER 250 ML 63.75 ML IV (12:47)
--- NOTE | 2018-01-29 15:48 | PC.NURSE ---
Shift summary: Per request from Dr Eid, patient's NG was backed out approx 2.5-3 inches after she had her xray this morning. NG to LIS and with scant output that appears bloody- MD Eid aware and stated that started after he fussed with it this morning. Getting first unit PRBC's, vitals stable at 15 min check and no reports new onset symptoms. There is Lasix ordered between units- IV fluids and TPN rates turned down during blood transfusion (to avoid fluid overload).
--- NOTE | 2018-01-29 16:45 | P.PN_ITS ---
Subjective Date Patient Seen: 01/29/18 Time Patient Seen: 14:46 Interval history: History of present illness Follow-up on patient with pneumonia as well as small-bowel obstruction Review of systems No chest pain or shortness of breath but there is still pain in the abdomen does modestly improved compared to yesterday No nausea at present Exam Vital Signs (past 8 hours): - 01/29/18 10:00 01/29/18 11:50 01/29/18 13:10 Temperature 97.1 F L Pulse Rate 86 75 Respiratory Rate 20 Blood Pressure 158/104 H 162/87 H Pulse Oximetry 97 99 01/29/18 14:10 01/29/18 14:25 01/29/18 15:15 Temperature 97.3 F L 96.4 F L 98.2 F Pulse Rate 80 80 86 Respiratory Rate 20 20 20 Blood Pressure 182/98 H 162/104 H 201/114 H Pulse Oximetry 98 Fraction of Inspired Oxygen 24 Oxygen Delivery Method Nasal Cannula Oxygen Flow Rate 2 Narrative Exam Narrative: General appearance patient is awake and alert in no apparent distress at rest Psychiatric well oriented to time place and person mood is pleasant affect is appropriate Respiratory fairly clear to auscultation no wheezes no crackles good airflow Cardiovascular regular rate rhythm no murmurs GI bandage noted, continued diminished bowel sounds and tenderness noted to mild palpation Neurologic no focal neurologic changes cranial nerves 2-12 grossly intact Objective Labs Result Diagrams: 01/29/18 05:02 01/29/18 05:02 Labs: Laboratory Results - last 24 hr 01/26/18 01/29/18 01/29/18 10:44 05:02 05:02 WBC 15.1 H RBC 2.02 L Hgb 6.2 L* Hct 18.5 L* MCV 91.6 MCH 30.6 MCHC 33.4 RDW 14.7 Plt Count 243 Neut % (Auto) Water Safety Teacher Lymph % (Auto) Water Safety Teacher [place] % (Auto) Water Safety Teacher Eos % (Auto) Water Safety Teacher Baso % (Auto) Water Safety Teacher Neut # (Auto) Water Safety Teacher Total Counted 100 Seg Neutrophils % 70.0 Band Neutrophils % 6.0 Lymphocytes % (Manual) 18.0 L Monocytes % (Manual) 3.0 Eosinophils % (Manual) 1.0 L Myelocytes % 2.0 H Neutrophils # (Manual) 03038 H RBC Morphology See below Polychromasia 1+ H Hypochromasia 1+ H Basophilic Stippling 1+ H Sodium 141 Potassium 3.8 Chloride 108 H Carbon Dioxide 27 BUN 12 Creatinine 0.90 Estimated GFR > 60.0 BUN/Creatinine Ratio 13.3 Glucose 280 H D Calcium 7.9 L Phosphorus 2.0 L Total Bilirubin 0.2 AST 28 ALT 18 Alkaline Phosphatase 37 L Total Protein 4.5 L Albumin 2.3 L Globulin 2.2 Albumin/Globulin Ratio 1.0 Blood Type AB Positive Antibody Screen Negative Crossmatch See Detail Assessment & Plan Plan: Assessment/Plan Narrative: Pneumonia: Zosyn given recent hospitalization lower lobe of lung is site of pneumonia Empiric treatment provided SBO (small bowel obstruction): S/p Exploratory Lap January 26 Patient is postop day 3 Today Patient NPO with continued fairly quiescent bowel sounds TPN started for nutrition Postoperative anemia Anemic state secondary to Debora operative blood loss 2 units of packed RBCs being provided for hemoglobin this morning of 6.2 Repeat labs in a.m. are pending Acute Renal insufficiency Improved with IV hydration Patient's serum creatinine is corrected to normal as of this morning January 28 Hypertension: IV Lopressor as needed Urinary tract infection: On Zosyn, growing citrobacter, awaiting sensitivities Time Spent With Patient Time with patient: 25 - 35 minutes (25 min)
[2018-01-29] MEDS: FUROSEMIDE 20 MG/2 ML VIAL IV (17:14)
[2018-01-29] MEDS: AA 5 %/CALCIUM/LYTES/DEXT 20 % 1,000 ML with MULTIVITAMIN 10 ML, TRACE ELEMENTS 1 ML, F... 42.258 ML IV (17:28)
[2018-01-29] MEDS: FAT EMULSIONS 50 GM/250 ML EMULSION IV (17:28)
[2018-01-29] MEDS: LATANOPROST 0.005% OPHTH 2.5 ML 1 DROPS EYE-BOTH (20:52)
[2018-01-30] VITALS (14 sets, daily range): BP systolic 128–186; BP diastolic 74–101; PULSE 82–107; RESP 16–20; TEMP 35.8–36.8; O2SAT 91–97
--- NOTE | 2018-01-30 | DI.RAD.S_ITS ---
PROCEDURE: XR ABDOMEN MIN 2V INDICATIONS: eval for increased free air TECHNIQUE: 2 views of the abdomen were acquired. COMPARISON: [facility], CR, XR CHEST 1V, 01/29/2018, 10:42. [facility], CR, XR ACUTE ABDOMEN SERIES, 01/29/2018, 5:36. FINDINGS: Surgical changes and devices: Aortoiliac stent graft is present. Right hip ORIF has been performed. Cholecystectomy clips are present. NGT, tip of which is in the gastric lumen. Anterior ventral pelvic staple line is present. Bowel: Decreased pneumoperitoneum. Moderately distended small bowel loops with air-fluid levels. Soft tissues: No masses; visualized solid organ contours appear normal in size. No suspicious abdominal calcifications. Bones: No suspicious bony abnormalities. IMPRESSION: 1. Decreased pneumoperitoneum. 2. Small bowel obstruction. Dictated by: Trent Gamboa M.D. on 01/30/2018 at 9:45 Approved by: Trent Gamboa M.D. on 01/30/2018 at 9:47
[2018-01-30] MEDS: INSULIN ASPART 100 UNIT/ML INSULN PEN SUBCUT ×4 (00:28→18:35)
[2018-01-30] MEDS: METOPROLOL TARTRATE 5 MG/5 ML INJ IV (00:29)
[2018-01-30] MEDS: BENZOCAINE/MENTHOL 1 LOZ PKT 1 EACH PO (02:07)
[2018-01-30] MEDS: PIPERACILLIN-TAZO 3.375 GM/50 ML FROZ.PIGGY IV ×2 (05:25→12:12)
[2018-01-30] MEDS: HYDROMORPHONE PCA 6 MG/30 ML PCA.VIAL IV ×3 (05:26→21:23)
[2018-01-30 05:40] LABS: Hematocrit 26.5 % (36-46); Hemoglobin 8.9 g/dL (12.0-16.0); Mean Corpuscular HGB Conc 33.5 % (30-36); Mean Corpuscular Hemoglobin 28.2 PG (26-34); Mean Corpuscular Volume 84.3 fL (80-100); Platelet Count 197 X10^3/uL (150-400); Red Blood Cell Count 3.14 X10^6/uL (4.0-5.2); Red Cell Distribution Width 18.2 % (11.6-14.8); White Blood Cell Count 20.3 X10^3/uL (4.5-11.0)
[2018-01-30 05:42] LABS: Add Manual Diff / Slide Review YES
[2018-01-30 05:51] LABS: Alanine Aminotransferase 21 IU/L (9-52); Albumin 2.4 g/dL (3.5-5.0); Alkaline Phosphatase 36 U/L (38-126); Aspartate Aminotransferase 30 IU/L (14-36); BUN Creatinine Ratio 18.9 (6-22); Bilirubin Total 0.4 mg/dL (0.2-1.3); Blood Urea Nitrogen 17 mg/dL (7-17); Carbon Dioxide 31 mmol/L (22-32); Chloride 102 mmol/L (98-107); Estimated Glomerular Filt Rate > 60.0 mL/min (>60); Globulin 2.4 g/dL (1.7-4.1); Glucose 166 mg/dL (80-110); HEMOLYSIS < 15 (0-50); Sodium 139 mmol/L (137-145); Total Protein 4.8 g/dL (6.3-8.2)
[2018-01-30 06:48] LABS: Nucleated Red Blood Cells 2 #/Diff
[2018-01-30] MEDS: SODIUM CHLORIDE 0.9% FLUSH 10 ML IV ×2 (08:32→21:10)
[2018-01-30] MEDS: PANTOPRAZOLE 40 MG VIAL IV (08:32)
[2018-01-30] MEDS: TIMOLOL 0.25% OPHTH 1 DROPS EYE-BOTH ×2 (08:33→21:09)
[2018-01-30 09:47] LABS: C-Reactive Protein Quant 3.3 mg/dL (<1.0)
[2018-01-30 09:51] LABS: Erythrocyte Sedimentation Rate 51 MM/HR (0-20)
--- NOTE | 2018-01-30 11:48 | PT.IPTN ---
Current Diagnoses Hypokalemia (01/24/18) Essential (primary) hypertension (01/24/18) Lobar pneumonia, unspecified organism (01/24/18) Unspecified intestinal obstruction, unspecified as to partial versus complete obstruction (01/24/18) Age-related osteoporosis without current pathological fracture (01/24/18) Disorder of kidney and ureter, unspecified (01/24/18) Urinary tract infection, site not specified (01/24/18) Multiple fractures of ribs, left side, initial encounter for closed fracture (01/24/18) Acquired absence of kidney (01/24/18) Other specified postprocedural states (01/24/18) Surgery Performed Operation Date: 01/26/18 14:30 Actual Procedures p Exploratory Laparotomy - Joel Castaneda MD Physical Therapy Treatment Note M2 PT-IP Current Condition Start: 01/27/18 12:45 Freq: NEEDED Status: Active Protocol: Document 01/27/18 14:17 LRN (Rec: 01/27/18 14:49 LRN [id number]) Physical Therapy Current Condition Current Condition Evaluation Date 01/27/18 Treatment Diagnosis 01/24/18: L sided Chest Pain SBO Onset Date 01/24/18 Precautions Abdominal Surgery Precautions Log Roll Lifting Restrictions Other Precautions Gait belt high on chest due to PICC line and abdominal incision. M3 PT-IP Subjective Start: 01/27/18 12:45 Freq: NEEDED Status: Active Protocol: Document 01/30/18 10:25 CLB (Rec: 01/30/18 11:48 CLB [id number]) Subjective Physical Therapy Visit Type Type Patient Refusal Notes Pt stated she was tired after having tests done and was in pain and would walk later.
--- NOTE | 2018-01-30 12:54 | P.PN_ITS ---
Subjective Date Patient Seen: 01/30/18 Time Patient Seen: 11:05 Interval history: History of present illness Patient is postop day 4. For small bowel obstruction with surgical intervention and lysis of adhesions Patient had postoperative anemia with 2 units of packed RBC blood given January 29 Patient being treated for pneumonia along with UTI. Review of systems Patient notes continued abdominal pain and discomfort. No chest pain or shortness of breath Exam Vital Signs (past 8 hours): - 01/30/18 07:30 01/30/18 08:00 01/30/18 08:15 Temperature 97.9 F Pulse Rate 88 Respiratory Rate 16 Blood Pressure 169/99 H Pulse Oximetry 95 95 97 01/30/18 10:45 Temperature Pulse Rate Respiratory Rate Blood Pressure Pulse Oximetry 95 Fraction of Inspired Oxygen 24 Oxygen Delivery Method Room Air Oxygen Flow Rate 3 Narrative Exam Narrative: General appearance patient is awake and alert in no apparent distress at rest Psychiatric well oriented to time place and person mood is pleasant affect is appropriate Respiratory fairly clear to auscultation no wheezes no crackles good airflow Cardiovascular regular rate rhythm no murmurs GI bandage noted, continued diminished bowel sounds and tenderness noted to mild palpation Neurologic no focal neurologic changes cranial nerves 2-12 grossly intact Objective Labs Result Diagrams: 01/30/18 05:10 01/30/18 05:10 Labs: Laboratory Results - last 24 hr 01/26/18 01/30/18 01/30/18 10:44 05:10 05:10 WBC 20.3 H RBC 3.14 L Hgb 8.9 L Hct 26.5 L MCV 84.3 D MCH 28.2 MCHC 33.5 RDW 18.2 H Plt Count 197 Neut % (Auto) Not Reportable Lymph % (Auto) Not Reportable [place] % (Auto) Not Reportable Eos % (Auto) Not Reportable Baso % (Auto) Not Reportable Seg Neutrophils % 76.0 H Band Neutrophils % 1.0 L Lymphocytes % (Manual) 19.0 L Monocytes % (Manual) 1.0 L Eosinophils % (Manual) 3.0 Nucleated RBCs 2 H RBC Morphology * ESR Sodium 139 Potassium 3.0 L Chloride 102 Carbon Dioxide 31 BUN 17 Creatinine 0.90 Estimated GFR > 60.0 BUN/Creatinine Ratio 18.9 Glucose 166 H D Calcium 8.0 L Total Bilirubin 0.4 AST 30 ALT 21 Alkaline Phosphatase 36 L C-Reactive Protein Total Protein 4.8 L Albumin 2.4 L Globulin 2.4 Albumin/Globulin Ratio 1.0 Procalcitonin Blood Type AB Positive Antibody Screen Negative Crossmatch See Detail 01/30/18 01/30/18 01/30/18 09:25 09:25 09:25 WBC RBC Hgb Hct MCV MCH MCHC RDW Plt Count Neut % (Auto) Lymph % (Auto) [place] % (Auto) Eos % (Auto) Baso % (Auto) Seg Neutrophils % Band Neutrophils % Lymphocytes % (Manual) Monocytes % (Manual) Eosinophils % (Manual) Nucleated RBCs RBC Morphology ESR 51 H Sodium Potassium Chloride Carbon Dioxide BUN Creatinine Estimated GFR BUN/Creatinine Ratio Glucose Calcium Total Bilirubin AST ALT Alkaline Phosphatase C-Reactive Protein 3.3 H Total Protein Albumin Globulin Albumin/Globulin Ratio Procalcitonin 0.40 Blood Type Antibody Screen Crossmatch Assessment & Plan Plan: Assessment/Plan Narrative: Pneumonia: Zosyn given recent hospitalization lower lobe of lung described as site of pneumonia Empiric treatment provided SBO (small bowel obstruction): S/p Exploratory Lap January 26 Patient is postop day 4 Today Patient NPO with continued fairly quiescent bowel sounds, TPN started for nutrition 2 view of Abdomen today notes clearing of pneumoperitoneum. WBC count increased to 20.3 today and yesterday's WBC was 15.1 Hypokalemia Pharmacy is provided TPN and can integrate the low potassium in the TPN being provided. Will add on daily Magnesium and Phosphorus lab work as well. Postoperative anemia Anemic state secondary to Debora-operative blood loss 2 units of packed RBCs being provided for hemoglobin AM morning of 01/29 for Hb of 6.2 Repeat labs in a.m. today note Hb of 8.9. Acute Renal insufficiency Improved with IV hydration Patient's serum creatinine is corrected to normal as of January 28 Hypertension: IV Lopressor as needed Urinary tract infection: On Zosyn, growing citrobacter, still awaiting sensitivities as of 01/30. Time Spent With Patient Time with patient: 25 - 35 minutes (25 min )
--- NOTE | 2018-01-30 13:09 | PM.PNPO.1 ---
Subjective Date Patient Seen: 01/30/18 Time Patient Seen: 13:09 Interval history: Patient is feeling okay. Still having some abdominal pain. Not severe. May feel little bit stronger after the blood transfusions. Has not seen any blood on her wound any longer. Exam Vital Signs (past 8 hours): - 01/30/18 07:30 01/30/18 08:00 01/30/18 08:15 Temperature 97.9 F Pulse Rate 88 Respiratory Rate 16 Blood Pressure 169/99 H Pulse Oximetry 95 95 97 01/30/18 10:45 01/30/18 11:55 Temperature 98.2 F Pulse Rate 92 H Respiratory Rate 18 Blood Pressure 143/94 H Pulse Oximetry 95 92 Fraction of Inspired Oxygen 24 Oxygen Delivery Method Room Air Oxygen Flow Rate 0 Narrative Exam Narrative: Pleasant cooperative woman in no apparent distress. Her lungs are clear to auscultation. Decreased in the bases. Heart regular rate and rhythm without murmur gallop. Took off her dressing today. Wound looks fine. No bleeding and no cellulitis. Objective Labs Result Diagrams: 01/30/18 05:10 01/30/18 05:10 Labs: Laboratory Results - last 24 hr 01/26/18 01/30/18 01/30/18 10:44 05:10 05:10 WBC 20.3 H RBC 3.14 L Hgb 8.9 L Hct 26.5 L MCV 84.3 D MCH 28.2 MCHC 33.5 RDW 18.2 H Plt Count 197 Neut % (Auto) Not Reportable Lymph % (Auto) Not Reportable [place] % (Auto) Not Reportable Eos % (Auto) Not Reportable Baso % (Auto) Not Reportable Seg Neutrophils % 76.0 H Band Neutrophils % 1.0 L Lymphocytes % (Manual) 19.0 L Monocytes % (Manual) 1.0 L Eosinophils % (Manual) 3.0 Nucleated RBCs 2 H RBC Morphology * ESR Sodium 139 Potassium 3.0 L Chloride 102 Carbon Dioxide 31 BUN 17 Creatinine 0.90 Estimated GFR > 60.0 BUN/Creatinine Ratio 18.9 Glucose 166 H D Calcium 8.0 L Total Bilirubin 0.4 AST 30 ALT 21 Alkaline Phosphatase 36 L C-Reactive Protein Total Protein 4.8 L Albumin 2.4 L Globulin 2.4 Albumin/Globulin Ratio 1.0 Procalcitonin Blood Type AB Positive Antibody Screen Negative Crossmatch See Detail 01/30/18 01/30/18 01/30/18 09:25 09:25 09:25 WBC RBC Hgb Hct MCV MCH MCHC RDW Plt Count Neut % (Auto) Lymph % (Auto) [place] % (Auto) Eos % (Auto) Baso % (Auto) Seg Neutrophils % Band Neutrophils % Lymphocytes % (Manual) Monocytes % (Manual) Eosinophils % (Manual) Nucleated RBCs RBC Morphology ESR 51 H Sodium Potassium Chloride Carbon Dioxide BUN Creatinine Estimated GFR BUN/Creatinine Ratio Glucose Calcium Total Bilirubin AST ALT Alkaline Phosphatase C-Reactive Protein 3.3 H Total Protein Albumin Globulin Albumin/Globulin Ratio Procalcitonin 0.40 Blood Type Antibody Screen Crossmatch Assessment & Plan Post-op Postoperative Procedures Operation Date: 01/26/18 14:30 Actual Procedures Side Surgeon p Exploratory Laparotomy GEN Joel Castaneda MD Postoperative status narrative: Rising white count. X-rays today show an ileus pattern with less free air than yesterday. Decreased gastric air as well. NG tube is in place. Shelley still in. Postoperative plan narrative: A quite concerned with rising white count. Her abdomen is really not showing any evidence of a problem on exam. She is softer and less tender than most people would be at this point. The wound looks fine. It is possible the rising white count has from her lungs though they seem to be improving. Her urine culture did grow Citrobacter. On review of this particular organism it appears to be developing resistance. An Endo by ritu raymundo of this particular organism from studies done elsewhere show that in a pen may be a mo effective antibiotic than others. This should also cover any pneumonia so switched her to in a phantom. We will also remove the Shelley which would probably prevent her from clearing her urinary tract. Encouraged her to ambulate. Will continue her TPN at present levels. Source of rising white count does not appear to be in her abdomen based on physical assessment. Also the fact that she has remained afebrile these me to think this is more likely to be urinary tract.
--- NOTE | 2018-01-30 15:01 | PC.NURSE ---
Post-op: Pt requires encouagement to get up and move. Did get up and amb x1 for a short distance. Refused to sit in a chair. Later did get up and shower. [place] much better after same. Karsten d/c at that time, about 1430, has not voided since. IS used to 1500. Will to do when reminded. Lungs are diminished through out and has a hx of recent rib fractures. Discussed importance of using IS due to increase risk of pneumonia due to fractures and post-op status. Pt verb understanding. Discussed getting up and amb as much as possible. She will do as much as she can. Did do x-rays today as well as her walk and shower. She reports this is the most activity she has done since surgery. Does have few Bt's, not much flatus but it is present. Wound intact, no drainage seen, minimal redness. Hopefully will cont to improve.
--- NOTE | 2018-01-30 16:46 | PT.IPTN ---
Current Diagnoses Hypokalemia (01/24/18) Essential (primary) hypertension (01/24/18) Lobar pneumonia, unspecified organism (01/24/18) Unspecified intestinal obstruction, unspecified as to partial versus complete obstruction (01/24/18) Age-related osteoporosis without current pathological fracture (01/24/18) Disorder of kidney and ureter, unspecified (01/24/18) Urinary tract infection, site not specified (01/24/18) Multiple fractures of ribs, left side, initial encounter for closed fracture (01/24/18) Acquired absence of kidney (01/24/18) Other specified postprocedural states (01/24/18) Surgery Performed Operation Date: 01/26/18 14:30 Actual Procedures p Exploratory Laparotomy - Joel Castaneda MD Physical Therapy Treatment Note M2 PT-IP Current Condition Start: 01/27/18 12:45 Freq: NEEDED Status: Active Protocol: Document 01/27/18 14:17 LRN (Rec: 01/27/18 14:49 LRN [email or web address]) Physical Therapy Current Condition Current Condition Evaluation Date 01/27/18 Treatment Diagnosis 01/24/18: L sided Chest Pain SBO Onset Date 01/24/18 Precautions Abdominal Surgery Precautions Log Roll Lifting Restrictions Other Precautions Gait belt high on chest due to PICC line and abdominal incision. M3 PT-IP Subjective Start: 01/27/18 12:45 Freq: NEEDED Status: Active Protocol: Document 01/30/18 16:15 CLB (Rec: 01/30/18 16:46 CLB [id number]) Subjective Physical Therapy Visit Type Type Treatment Note Visit Start Time 16:15 Visit Stop Time 16:30 Total Visit Minutes 15 Number of LANGUAGE TRANSLATOR Visits 2 Physical Therapy Visit Comments Patient Comments Pt hesitant but with encouragement pt agreed to get up for a walk. Therapy Pain Assessment Pain When Pain Assessed During Mobility Pain Present Pain Present Pain Reported M4 PT-IP Mobility and Gait Start: 01/27/18 12:45 Freq: NEEDED Status: Active Protocol: Document 01/30/18 16:15 CLB (Rec: 01/30/18 16:46 CLB [id number]) PT-Bed Mobility Assessment Rolling Type of Rolling Roll to Right Level of Assist Standby Assistance Supine to Sit Supine to Sit Contact Guard Assistance Head of Bed Elevated Bedrails Sit to Supine Sit to Supine Minimal Assistance 1 Person Assistance Scooting Scooting to Edge of Bed Standby Assistance Scooting Up and Down in Bed Standby Assistance PT-Transfer Assessment Sit to and From Stand Sit to and from Stand Contact Guard Assistance Equipment Transfer Assistive Device Gait Belt Front Wheeled Walker Orthotic/Prosthetic Devices or Brace: No Transfers Transfer Destination Bed Transfer Ability Level of Assist Minimal Assistance Gait Assessment Gait Gait Assistance Required: Contact Guard Assist Distance (Feet) 870 Able to Maintain Weight Bearing Status Yes During Gait Assistive Devices Assistive Device Gait Belt Front Wheeled Walker Orthotic/Prosthetic Devices or Brace: No Gait Deviations General Gait Pattern Decreased Stride Length Flexed Trunk Comments Gait Comments Pt ambulates slowly with small step through gait pattern. Pt needs assist with IV pole. M5 PT-IP Objective Assessments Start: 01/27/18 12:45 Freq: NEEDED Status: Active Protocol: Document 01/27/18 14:17 LRN (Rec: 01/27/18 14:49 LRN [email or web address]) Orientation Orientation/Cognition Level of Alertness Alert Orientation Name Place Situation Language Function Ability No Deficits Noted Safety Awareness Understands Safety Issues Memory Description No Deficits Noted Gross Range of Motion Upper Extremity ROM Assessment Within Functional Limits Lower Extremity ROM Assessment Within Functional Limits Impairments Movement of RLE limited due to L lateral trunk pain. Strength Upper Extremity Strength Assessment Bilaterally Impaired Lower Extremity Strength Assessment Bilaterally Impaired Comments Strength Comments Strength impaired due to rib fracture and abdominal incision pain. M7 PT-IP Assessment and Plan Start: 01/27/18 12:45 Freq: NEEDED Status: Active Protocol: Document 01/30/18 16:15 CLB (Rec: 01/30/18 16:46 CLB [id number]) PT Summary Assessment and Plan Potential Rehabilitation Potential Good Status of Condition at Evaluation Evolving Summary Assessment Summary Pt needs encouragement to participate with PT. Pt is improving with bed mobility and increased gait distance. Goals Bed Mobility Goal Standby Assistance Transfer Goal Standby Assistance Gait Goal Standby Assistance Front Wheel Walker Gait Distance 50' Days to Meet Goals 2 Frequency of Treatment Frequency Of Treatment Twice a Day Treatment Plan Physical Therapy Treatment Plan Transfer Training Gait Training Therapeutic Exercise Post Op Education Other Recommendations and Next Treatment Gait belt high due to Focus abdominal incision and PICC line. Teach pt deep breathing , start gentle LE/UE ROM ex's, progress to SBA for transfers and gait. Recommendations To Nursing Amount of Assist Needed 1 Person Assist Discharge Recommendations PT Discharge Recommendations SNF Rehab
[2018-01-30] MEDS: FAT EMULSIONS 50 GM/250 ML EMULSION IV (17:40)
[2018-01-30] MEDS: SODIUM CHLORIDE 0.9% IV (17:40)
[2018-01-30] MEDS: IMIPENEM IV (17:40)
[2018-01-30] MEDS: CILASTATIN IV (17:40)
[2018-01-30] MEDS: AA 5 %/CALCIUM/LYTES/DEXT 20 % 1,000 ML with MULTIVITAMIN 10 ML, TRACE ELEMENTS 1 ML, F... 42.885 ML IV (17:41)
[2018-01-30] MEDS: LATANOPROST 0.005% OPHTH 2.5 ML 1 DROPS EYE-BOTH (21:09)
[2018-01-30] MEDS: ONDANSETRON 4 MG/2 ML INJ IV (22:17)
[2018-01-31] VITALS (8 sets, daily range): BP systolic 119–136; BP diastolic 81–93; PULSE 88–110; RESP 16–18; TEMP 36.3–36.5; O2SAT 91–96; BMI 26.5
[2018-01-31] MEDS: IMIPENEM IV ×4 (00:39→18:07)
[2018-01-31] MEDS: SODIUM CHLORIDE 0.9% IV ×4 (00:39→18:07)
[2018-01-31] MEDS: CILASTATIN IV ×4 (00:39→18:07)
[2018-01-31] MEDS: INSULIN ASPART 100 UNIT/ML INSULN PEN SUBCUT ×4 (00:42→18:18)
[2018-01-31] MEDS: HYDROMORPHONE PCA 6 MG/30 ML PCA.VIAL IV ×3 (05:49→21:46)
[2018-01-31 05:54] LABS: Hemoglobin 8.2 g/dL (12.0-16.0); Mean Corpuscular Hemoglobin 28.4 PG (26-34); Mean Corpuscular Volume 86.2 fL (80-100); Platelet Count 200 X10^3/uL (150-400); Red Cell Distribution Width 18.2 % (11.6-14.8)
[2018-01-31 05:55] LABS: Add Manual Diff / Slide Review YES
[2018-01-31 06:10] LABS: C-Reactive Protein Quant 2.7 mg/dL (<1.0)
[2018-01-31 06:19] LABS: Erythrocyte Sedimentation Rate 55 MM/HR (0-20)
[2018-01-31 06:36] LABS: Alanine Aminotransferase 47 IU/L (9-52); Albumin 2.5 g/dL (3.5-5.0); Alkaline Phosphatase 70 U/L (38-126); Aspartate Aminotransferase 100 IU/L (14-36); Bilirubin Total 0.4 mg/dL (0.2-1.3); Blood Urea Nitrogen 25 mg/dL (7-17); Calcium 8.3 mg/dL (8.4-10.2); Carbon Dioxide 32 mmol/L (22-32); Chloride 102 mmol/L (98-107); Estimated Glomerular Filt Rate 53.9 mL/min (>60); Globulin 2.5 g/dL (1.7-4.1); Glucose 139 mg/dL (80-110); HEMOLYSIS < 15 (0-50); Phosphorous 2.3 mg/dL (2.8-4.1); Potassium 3.3 mmol/L (3.4-5.1); Sodium 140 mmol/L (137-145)
[2018-01-31 06:50] LABS: Procalcitonin 0.28 ng/mL (<0.5)
[2018-01-31 07:01] LABS: Neutrophils Absolute Manual 8700 /uL (3000-5900); Total Cells Counted 100
[2018-01-31 07:02] LABS: Anisocytosis 2+
[2018-01-31 08:14] LABS: Magnesium 1.6 mg/dL (1.6-2.3)
[2018-01-31] MEDS: SODIUM CHLORIDE 0.9% FLUSH 10 ML IV ×2 (08:45→21:34)
[2018-01-31] MEDS: TIMOLOL 0.25% OPHTH 1 DROPS EYE-BOTH ×2 (08:45→21:32)
[2018-01-31] MEDS: PANTOPRAZOLE 40 MG VIAL IV ×2 (08:45→21:34)
--- NOTE | 2018-01-31 09:36 | PT.IPTN ---
Current Diagnoses Hypokalemia (01/24/18) Essential (primary) hypertension (01/24/18) Lobar pneumonia, unspecified organism (01/24/18) Unspecified intestinal obstruction, unspecified as to partial versus complete obstruction (01/24/18) Age-related osteoporosis without current pathological fracture (01/24/18) Disorder of kidney and ureter, unspecified (01/24/18) Urinary tract infection, site not specified (01/24/18) Multiple fractures of ribs, left side, initial encounter for closed fracture (01/24/18) Acquired absence of kidney (01/24/18) Other specified postprocedural states (01/24/18) Surgery Performed Operation Date: 01/26/18 14:30 Actual Procedures p Exploratory Laparotomy GEN - Joel Castaneda MD Physical Therapy Treatment Note M2 PT-IP Current Condition Start: 01/27/18 12:45 Freq: NEEDED Status: Active Protocol: Document 01/31/18 09:30 AMB (Rec: 01/31/18 09:34 AMB [id number]) Physical Therapy Current Condition Current Condition Evaluation Date 01/27/18 Treatment Diagnosis 01/24/18: L sided Chest Pain SBO Onset Date 01/24/18 Precautions Abdominal Surgery Precautions Log Roll Lifting Restrictions Other Precautions Gait belt high on chest due to PICC line and abdominal incision. M3 PT-IP Subjective Start: 01/27/18 12:45 Freq: NEEDED Status: Active Protocol: Document 01/31/18 09:30 AMB (Rec: 01/31/18 09:34 AMB [id number]) Subjective Physical Therapy Visit Type Visit Start Time 09:10 Visit Stop Time 09:30 Total Visit Minutes 20 Number of BRUSH OR BROOM CUTTER Visits 0 Physical Therapy Visit Comments Patient Comments The patient has just gotten up with the CONTINUOUS PROCESS COFFEE ROASTER and is in her chair but is agreeable to exercises. Therapy Pain Assessment Pain When Pain Assessed During Mobility Pain Present Pain Present Pain Reported Location Abdomen Pain Management Techniques Timing of Activity with Medications M4 PT-IP Mobility and Gait Start: 01/27/18 12:45 Freq: NEEDED Status: Active Protocol: Document 01/31/18 09:30 AMB (Rec: 01/31/18 09:36 AMB [id number]) PT-Bed Mobility Assessment Scooting Scooting to Edge of Bed Standby Assistance PT-Transfer Assessment Sit to and From Stand Sit to and from Stand Contact Guard Assistance Use of Upper Extremities Equipment Transfer Assistive Device Gait Belt Front Wheeled Walker Orthotic/Prosthetic Devices or Brace: No Gait Assessment Comments Gait Comments Pt did not want to walk this morning, but agreed to walk this afternoon. M5 PT-IP Objective Assessments Start: 01/27/18 12:45 Freq: NEEDED Status: Active Protocol: Document 01/27/18 14:17 LRN (Rec: 01/27/18 14:49 LRN [email or web address]) Orientation Orientation/Cognition Level of Alertness Alert Orientation Name Place Situation Language Function Ability No Deficits Noted Safety Awareness Understands Safety Issues Memory Description No Deficits Noted Gross Range of Motion Upper Extremity ROM Assessment Within Functional Limits Lower Extremity ROM Assessment Within Functional Limits Impairments Movement of RLE limited due to L lateral trunk pain. Strength Upper Extremity Strength Assessment Bilaterally Impaired Lower Extremity Strength Assessment Bilaterally Impaired Comments Strength Comments Strength impaired due to rib fracture and abdominal incision pain. M6 PT-IP Treatment Start: 01/27/18 12:45 Freq: NEEDED Status: Active Protocol: Document 01/31/18 09:30 AMB (Rec: 01/31/18 09:34 AMB [id number]) Physical Therapy Treatment Exercises Exercises Ankle Pumps Heel Slides Supine Hip Abduction Seated Knee Flexion/Extension Other Treatments Other Treatment Performed Standing balance with CGA, standing marching M7 PT-IP Assessment and Plan Start: 01/27/18 12:45 Freq: NEEDED Status: Active Protocol: Document 01/31/18 09:30 AMB (Rec: 01/31/18 09:34 AMB [id number]) PT Summary Assessment and Plan Summary Assessment Summary Pt fatigued quickly today, but was willing to participate. Goals Bed Mobility Goal Standby Assistance Transfer Goal Standby Assistance Gait Goal Standby Assistance Front Wheel Walker Gait Distance 50' Days to Meet Goals 2
--- NOTE | 2018-01-31 10:10 | PC.NURSE ---
Addendum entered by Lien Zamora R.N. 01/31/18 15:00: family left and pt was assisted by this RN back into bed, 1 mod assist with fww, suppository given per md order. Call light within reach and bed alarm for safety. Original Note: Addendum entered by Lien Zamora R.N. 01/31/18 13:02: Dr phelps was notifed at 1020 of pt's ng output. dr castaneda up on floor and into see patient. Original Note: Day shift Pt is A&O able to make needs known. Rates pain to abdomen 11/26 encouraged use of OWNER MANAGER at this time. NG noted to have bright maroon in color, pt has had 400cc so far this shift. denies nausea. bowel tones are active x4, denies passing flatus. Paged dr Castaneda at [phone], sent fax to surgery at [phone]. Pt worked with therapy and is sitting up in chair at bedside. Denies any dizziness or lightheaded just feels weak. abdomen incision site is well approximated with steven and sutures. TPN infusing per order. Call light within reach and pt eating ice chips.
--- NOTE | 2018-01-31 13:02 | PM.PN.1 ---
Subjective Date Patient Seen: 01/31/18 Time Patient Seen: 12:02 Interval history: Complains of intermittent abdominal pain along the incision but well controlled with COMMUNICATIONS MEDIA PROFESSOR. Denies absolutely any flatus or bowel function since prior to surgery. No subjective fever chills. Denies chest pain or shortness of breath. No productive cough. Showered yesterday. No significant appetite as yet. No dysuria or difficulties with retention following Shelley catheter removal. Exam Vital Signs (past 8 hours): - 01/31/18 07:46 01/31/18 08:27 01/31/18 12:00 Temperature 97.4 F L 97.7 F Pulse Rate 88 98 H Respiratory Rate 16 16 Blood Pressure 136/85 119/81 Pulse Oximetry 93 93 93 Fraction of Inspired Oxygen 24 Oxygen Delivery Method Room Air Oxygen Flow Rate 0 Narrative Exam Narrative: Well-nourished well-developed female in no acute distress sitting comfortably in bedside chair. Alert oriented x3 Nasogastric tube continues to have significant output of nearly 600 cc per shift. Output is bilious but now is blood tinged as well. Chest clear to auscultation bilaterally. No crackles or wheezes. Abdomen is soft but relatively quiet with no significant bowel sounds. She is not significantly distended at all. Not tympanitic. Wound is clean, dry, and intact. No further bleeding or drainage. No erythema or ecchymosis. No hematoma or seroma. She is appropriately tender to palpation without guarding or rebound. Extremities show no clubbing or cyanosis Objective Labs Result Diagrams: 01/31/18 05:25 01/31/18 05:25 Labs: Laboratory Results - last 24 hr 01/26/18 01/31/18 01/31/18 10:44 05:25 05:25 WBC 15.0 H RBC 2.90 L Hgb 8.2 L Hct 25.0 L MCV 86.2 MCH 28.4 MCHC 33.0 RDW 18.2 H Plt Count 200 Neut % (Auto) Not Reportable Lymph % (Auto) Not Reportable [place] % (Auto) Not Reportable Eos % (Auto) Not Reportable Baso % (Auto) Not Reportable Total Counted 100 Seg Neutrophils % 58.0 Lymphocytes % (Manual) 25.0 Atypical Lymphs % 15.0 H Eosinophils % (Manual) 2.0 Neutrophils # (Manual) 8700 H RBC Morphology Not Reportable Anisocytosis 2+ H ESR Sodium 140 Potassium 3.3 L Chloride 102 Carbon Dioxide 32 BUN 25 H Creatinine 1.00 Estimated GFR 53.9 L BUN/Creatinine Ratio 25.0 H Glucose 139 H Calcium 8.3 L Phosphorus 2.3 L Magnesium 1.6 Total Bilirubin 0.4 AST 100 H ALT 47 Alkaline Phosphatase 70 C-Reactive Protein Total Protein 5.0 L Albumin 2.5 L Globulin 2.5 Albumin/Globulin Ratio 1.0 Procalcitonin Crossmatch See Detail 01/31/18 01/31/18 01/31/18 05:25 05:25 05:25 WBC RBC Hgb Hct MCV MCH MCHC RDW Plt Count Neut % (Auto) Lymph % (Auto) [place] % (Auto) Eos % (Auto) Baso % (Auto) Total Counted Seg Neutrophils % Lymphocytes % (Manual) Atypical Lymphs % Eosinophils % (Manual) Neutrophils # (Manual) RBC Morphology Anisocytosis ESR 55 H Sodium Potassium Chloride Carbon Dioxide BUN Creatinine Estimated GFR BUN/Creatinine Ratio Glucose Calcium Phosphorus Magnesium Total Bilirubin AST ALT Alkaline Phosphatase C-Reactive Protein 2.7 H Total Protein Albumin Globulin Albumin/Globulin Ratio Procalcitonin 0.28 Crossmatch Assessment & Plan Plan: Assessment/Plan Narrative: 77-year-old female postoperative day 5 from laparotomy with lysis of adhesions for small-bowel obstruction who continues to have ongoing ileus. We will administer rectal suppository today to try to stimulate bowel function. Continue nasogastric tube increased proton pump inhibitor to twice daily. She has been off Lovenox for several days now. No evidence of significant bleeding, but the nasogastric tube output is somewhat concerning. Continue Pepcid in the TPN. Increase potassium in TPN today. Administer lipids. Out of bed and ambulate as much as possible. Continue COMMUNICATIONS MEDIA PROFESSOR current settings, although I believe this is somewhat contributing to her ileus as well. Repeat laboratory studies and radiographic studies tomorrow. All the above discussed with the patient in detail. All questions answered to her satisfaction, and she voiced understanding. Orders were written.
--- NOTE | 2018-01-31 13:06 | P.PN_ITS ---
Subjective Date Patient Seen: 01/31/18 Time Patient Seen: 12:02 Interval history: Complains of intermittent abdominal pain along the incision but well controlled with BATTERY PARTS ASSEMBLER. Denies absolutely any flatus or bowel function since prior to surgery. No subjective fever chills. Denies chest pain or shortness of breath. No productive cough. Showered yesterday. No significant appetite as yet. No dysuria or difficulties with retention following Shelley catheter removal. Exam Vital Signs (past 8 hours): - 01/31/18 07:46 01/31/18 08:27 01/31/18 12:00 Temperature 97.4 F L 97.7 F Pulse Rate 88 98 H Respiratory Rate 16 16 Blood Pressure 136/85 119/81 Pulse Oximetry 93 93 93 Fraction of Inspired Oxygen 24 Oxygen Delivery Method Room Air Oxygen Flow Rate 0 Narrative Exam Narrative: Well-nourished well-developed female in no acute distress sitting comfortably in bedside chair. Alert oriented x3 Nasogastric tube continues to have significant output of nearly 600 cc per shift. Output is bilious but now is blood tinged as well. Chest clear to auscultation bilaterally. No crackles or wheezes. Abdomen is soft but relatively quiet with no significant bowel sounds. She is not significantly distended at all. Not tympanitic. Wound is clean, dry, and intact. No further bleeding or drainage. No erythema or ecchymosis. No hematoma or seroma. She is appropriately tender to palpation without guarding or rebound. Extremities show no clubbing or cyanosis Objective Labs Result Diagrams: 01/31/18 05:25 01/31/18 05:25 Labs: Laboratory Results - last 24 hr 01/26/18 01/31/18 01/31/18 10:44 05:25 05:25 WBC 15.0 H RBC 2.90 L Hgb 8.2 L Hct 25.0 L MCV 86.2 MCH 28.4 MCHC 33.0 RDW 18.2 H Plt Count 200 Neut % (Auto) Not Reportable Lymph % (Auto) Not Reportable [place] % (Auto) Not Reportable Eos % (Auto) Not Reportable Baso % (Auto) Not Reportable Total Counted 100 Seg Neutrophils % 58.0 Lymphocytes % (Manual) 25.0 Atypical Lymphs % 15.0 H Eosinophils % (Manual) 2.0 Neutrophils # (Manual) 8700 H RBC Morphology Not Reportable Anisocytosis 2+ H ESR Sodium 140 Potassium 3.3 L Chloride 102 Carbon Dioxide 32 BUN 25 H Creatinine 1.00 Estimated GFR 53.9 L BUN/Creatinine Ratio 25.0 H Glucose 139 H Calcium 8.3 L Phosphorus 2.3 L Magnesium 1.6 Total Bilirubin 0.4 AST 100 H ALT 47 Alkaline Phosphatase 70 C-Reactive Protein Total Protein 5.0 L Albumin 2.5 L Globulin 2.5 Albumin/Globulin Ratio 1.0 Procalcitonin Crossmatch See Detail 01/31/18 01/31/18 01/31/18 05:25 05:25 05:25 WBC RBC Hgb Hct MCV MCH MCHC RDW Plt Count Neut % (Auto) Lymph % (Auto) [place] % (Auto) Eos % (Auto) Baso % (Auto) Total Counted Seg Neutrophils % Lymphocytes % (Manual) Atypical Lymphs % Eosinophils % (Manual) Neutrophils # (Manual) RBC Morphology Anisocytosis ESR 55 H Sodium Potassium Chloride Carbon Dioxide BUN Creatinine Estimated GFR BUN/Creatinine Ratio Glucose Calcium Phosphorus Magnesium Total Bilirubin AST ALT Alkaline Phosphatase C-Reactive Protein 2.7 H Total Protein Albumin Globulin Albumin/Globulin Ratio Procalcitonin 0.28 Crossmatch Assessment & Plan Plan: Assessment/Plan Narrative: 77-year-old female postoperative day 5 from laparotomy with lysis of adhesions for small-bowel obstruction who continues to have ongoing ileus. We will administer rectal suppository today to try to stimulate bowel function. Continue nasogastric tube increased proton pump inhibitor to twice daily. She has been off Lovenox for several days now. No evidence of significant bleeding , but the nasogastric tube output is somewhat concerning. Continue Pepcid in the TPN. Increase potassium in TPN today. Administer lipids. Out of bed and ambulate as much as possible. Continue BATTERY PARTS ASSEMBLER current settings, although I believe this is somewhat contributing to her ileus as well. Repeat laboratory studies and radiographic studies tomorrow. All the above discussed with the patient in detail. All questions answered to her satisfaction, and she voiced understanding. Orders were written.
[2018-01-31] MEDS: BISACODYL 10 MG SUPP PR (14:30)
--- NOTE | 2018-01-31 15:41 | PT.IPTN ---
Current Diagnoses Hypokalemia (01/24/18) Essential (primary) hypertension (01/24/18) Lobar pneumonia, unspecified organism (01/24/18) Unspecified intestinal obstruction, unspecified as to partial versus complete obstruction (01/24/18) Age-related osteoporosis without current pathological fracture (01/24/18) Disorder of kidney and ureter, unspecified (01/24/18) Urinary tract infection, site not specified (01/24/18) Multiple fractures of ribs, left side, initial encounter for closed fracture (01/24/18) Acquired absence of kidney (01/24/18) Other specified postprocedural states (01/24/18) Surgery Performed Operation Date: 01/26/18 14:30 Actual Procedures p Exploratory Laparotomy GEN - Joel Castaneda MD Physical Therapy Treatment Note M2 PT-IP Current Condition Start: 01/27/18 12:45 Freq: NEEDED Status: Active Protocol: Document 01/31/18 09:30 AMB (Rec: 01/31/18 09:34 AMB [id number]) Physical Therapy Current Condition Current Condition Evaluation Date 01/27/18 Treatment Diagnosis 01/24/18: L sided Chest Pain SBO Onset Date 01/24/18 Precautions Abdominal Surgery Precautions Log Roll Lifting Restrictions Other Precautions Gait belt high on chest due to PICC line and abdominal incision. M3 PT-IP Subjective Start: 01/27/18 12:45 Freq: NEEDED Status: Active Protocol: Document 01/31/18 15:36 [facility] (Rec: 01/31/18 15:41 [facility] [id number]) Subjective Physical Therapy Visit Type Type Treatment Note Visit Start Time 14:55 Visit Stop Time 15:20 Total Visit Minutes 25 Number of REHABILITATION THERAPY AIDE Visits 0 Physical Therapy Visit Comments Patient Comments Pt agreeable to try to walk. Is hopeful that walking & the sapository help her with a BM Therapy Pain Assessment Pain When Pain Assessed At Rest Pain Present Pain Present Pain Reported Location Head Scale Used top of head after activity M4 PT-IP Mobility and Gait Start: 01/27/18 12:45 Freq: NEEDED Status: Active Protocol: Document 01/31/18 15:36 [facility] (Rec: 01/31/18 15:41 [facility] [id number]) PT-Bed Mobility Assessment Rolling Type of Rolling Log Rolling Roll to Right Level of Assist Contact Guard Assistance Supine to Sit Supine to Sit Contact Guard Assistance Head of Bed Elevated Bedrails Sit to Supine Sit to Supine Minimal Assistance Head of Bed Elevated Bedrails Scooting Scooting to Edge of Bed Standby Assistance PT-Transfer Assessment Sit to and From Stand Sit to and from Stand Contact Guard Assistance Minimal Assistance Equipment Transfer Assistive Device Gait Belt Front Wheeled Walker Orthotic/Prosthetic Devices or Brace: No Transfers Transfer Destination Bed Wheelchair Transfer Technique Amb about 5ft Transfer Ability Level of Assist Contact Guard Assistance Comments Mobility Comments Pt amb about 5 ft before feeling lightheaded so RN brought over W/c Which pt sat down in with min A. Pt transfered back to bed with min A and 2nd person to help with cords. Gait Assessment Gait Gait Assistance Required: Contact Guard Assist Distance (Feet) 5 Able to Maintain Weight Bearing Status No During Gait Assistive Devices Assistive Device Gait Belt Front Wheeled Walker Orthotic/Prosthetic Devices or Brace: No Gait Deviations General Gait Pattern Decreased Stride Length Decreased Feet Clearance Factors Limiting Gait Function Factors Limiting Gait Function Decreased Strength Pain Poor Balance Comments Gait Comments Limited d/t pt feeling light headed and drop in BP to 86/48 . Sitting at EOB prior to ambulation BP 123/67 and BP 124/76 after return to supine M5 PT-IP Objective Assessments Start: 01/27/18 12:45 Freq: NEEDED Status: Active Protocol: Document 01/27/18 14:17 LRN (Rec: 01/27/18 14:49 LRN [id number]) Orientation Orientation/Cognition Level of Alertness Alert Orientation Name Place Situation Language Function Ability No Deficits Noted Safety Awareness Understands Safety Issues Memory Description No Deficits Noted Gross Range of Motion Upper Extremity ROM Assessment Within Functional Limits Lower Extremity ROM Assessment Within Functional Limits Impairments Movement of RLE limited due to L lateral trunk pain. Strength Upper Extremity Strength Assessment Bilaterally Impaired Lower Extremity Strength Assessment Bilaterally Impaired Comments Strength Comments Strength impaired due to rib fracture and abdominal incision pain. M6 PT-IP Treatment Start: 01/27/18 12:45 Freq: NEEDED Status: Active Protocol: Document 01/31/18 09:30 AMB (Rec: 01/31/18 09:34 AMB [id number]) Physical Therapy Treatment Exercises Exercises Ankle Pumps Heel Slides Supine Hip Abduction Seated Knee Flexion/Extension Other Treatments Other Treatment Performed Standing balance with CGA, standing marching M7 PT-IP Assessment and Plan Start: 01/27/18 12:45 Freq: NEEDED Status: Active Protocol: Document 01/31/18 15:36 [facility] (Rec: 01/31/18 15:41 [facility] [id number]) PT Summary Assessment and Plan Summary Assessment Summary Pt was limited in her ability to participate today d/t feeling lightheaded Goals Bed Mobility Goal Standby Assistance Transfer Goal Standby Assistance Gait Goal Standby Assistance Front Wheel Walker Gait Distance 50' Days to Meet Goals 2 Frequency of Treatment Frequency Of Treatment Twice a Day Treatment Plan Physical Therapy Treatment Plan Transfer Training Gait Training Therapeutic Exercise Post Op Education Other Recommendations and Next Treatment Cont to work on gait as Focus tolerated and LE strengthening Recommendations To Nursing Amount of Assist Needed 1 Person Assist Discharge Recommendations PT Discharge Recommendations SNF Rehab
[2018-01-31] MEDS: FAT EMULSIONS 50 GM/250 ML EMULSION IV (18:07)
[2018-01-31] MEDS: AA 5 %/CALCIUM/LYTES/DEXT 20 % 1,000 ML with MULTIVITAMIN 10 ML, TRACE ELEMENTS 1 ML, F... 43.51 ML IV (18:07)
[2018-01-31 18:24] LABS: Hemoglobin 8.7 g/dL (12.0-16.0)
[2018-01-31 18:41] LABS: Hematocrit 26.9 % (36-46)
--- NOTE | 2018-01-31 18:43 | P.PN_ITS ---
Subjective Date Patient Seen: 01/31/18 Time Patient Seen: 15:41 Interval history: History of present illness Patient with a small-bowel obstruction with a very sluggish bowel since the surgery. Patient is postop day 4. Today Patient received 2 units of packed RBCs after the surgery postoperative bleeding Today patient is noting heme-positive NG tube aspirate that I did not note yesterday Review of systems No chest pain or shortness of breath patient notes tilt continued abdominal pain Exam Vital Signs (past 8 hours): - 01/31/18 12:00 01/31/18 16:11 Temperature 97.7 F 97.4 F L Pulse Rate 98 H 102 H Respiratory Rate 16 18 Blood Pressure 119/81 124/89 Pulse Oximetry 93 91 Fraction of Inspired Oxygen 24 Oxygen Delivery Method Room Air Oxygen Flow Rate 0 Narrative Exam Narrative: General appearance patient is awake and alert in no apparent distress at rest Psychiatric well oriented to time place and person mood is pleasant affect is appropriate Respiratory fairly clear to auscultation no wheezes no crackles good airflow Cardiovascular regular rate rhythm no murmurs GI bandage noted, continued diminished bowel sounds and tenderness noted to mild palpation Neurologic no focal neurologic changes cranial nerves 2-12 grossly intact Objective Labs Result Diagrams: 01/31/18 05:25 01/31/18 05:25 Labs: Laboratory Results - last 24 hr 01/26/18 01/31/18 01/31/18 10:44 05:25 05:25 WBC 15.0 H RBC 2.90 L Hgb 8.2 L Hct 25.0 L MCV 86.2 MCH 28.4 MCHC 33.0 RDW 18.2 H Plt Count 200 Neut % (Auto) Not Reportable Lymph % (Auto) Not Reportable [place] % (Auto) Not Reportable Eos % (Auto) Not Reportable Baso % (Auto) Not Reportable Total Counted 100 Seg Neutrophils % 58.0 Lymphocytes % (Manual) 25.0 Atypical Lymphs % 15.0 H Eosinophils % (Manual) 2.0 Neutrophils # (Manual) 8700 H RBC Morphology Not Reportable Anisocytosis 2+ H ESR Sodium 140 Potassium 3.3 L Chloride 102 Carbon Dioxide 32 BUN 25 H Creatinine 1.00 Estimated GFR 53.9 L BUN/Creatinine Ratio 25.0 H Glucose 139 H Calcium 8.3 L Phosphorus 2.3 L Magnesium 1.6 Total Bilirubin 0.4 AST 100 H ALT 47 Alkaline Phosphatase 70 C-Reactive Protein Total Protein 5.0 L Albumin 2.5 L Globulin 2.5 Albumin/Globulin Ratio 1.0 Procalcitonin Crossmatch See Detail 01/31/18 01/31/18 01/31/18 05:25 05:25 05:25 WBC RBC Hgb Hct MCV MCH MCHC RDW Plt Count Neut % (Auto) Lymph % (Auto) [place] % (Auto) Eos % (Auto) Baso % (Auto) Total Counted Seg Neutrophils % Lymphocytes % (Manual) Atypical Lymphs % Eosinophils % (Manual) Neutrophils # (Manual) RBC Morphology Anisocytosis ESR 55 H Sodium Potassium Chloride Carbon Dioxide BUN Creatinine Estimated GFR BUN/Creatinine Ratio Glucose Calcium Phosphorus Magnesium Total Bilirubin AST ALT Alkaline Phosphatase C-Reactive Protein 2.7 H Total Protein Albumin Globulin Albumin/Globulin Ratio Procalcitonin 0.28 Crossmatch Assessment & Plan Plan: Assessment/Plan Narrative: Pneumonia: Zosyn given recent hospitalization lower lobe of lung described as site of pneumonia Empiric treatment provided SBO (small bowel obstruction): S/p Exploratory Lap January 26 Patient is postop day 5 Today Patient NPO with continued fairly quiescent bowel sounds, today there is very mild bowel sounds for the 1st time noted TPN started for nutrition 2 view of Abdomen notes clearing of pneumoperitoneum. WBC count increased to 20.3 then trending downward. WBC today is 15,000 Hypokalemia Pharmacy is provided TPN and can integrate the low potassium in the TPN being provided. Will add on daily Magnesium and Phosphorus lab work as well. Postoperative anemia Anemic state secondary to Debora-operative blood loss 2 units of packed RBCs being provided for hemoglobin AM morning of 01/29 for Hb of 6.2 Repeat labs in a.m. today note Hb of 8.2 and was 8.9 yesterday Acute Renal insufficiency Improved with IV hydration Patient's serum creatinine is corrected to normal as of January 28 Hypertension: IV Lopressor as needed Urinary tract infection: On Zosyn, growing citrobacter, still awaiting sensitivities as of 01/31 Time Spent With Patient Time with patient: 25 - 35 minutes (25 min)
[2018-01-31] MEDS: LATANOPROST 0.005% OPHTH 2.5 ML 1 DROPS EYE-BOTH (21:34)
[2018-01-31] MEDS: DEXTROSE 5%-NS W/KCL 20MEQ 1,000 ML 100 MEQ IV (21:34)
[2018-02-01] VITALS (8 sets, daily range): BP systolic 124–160; BP diastolic 73–93; PULSE 86–97; RESP 15–24; TEMP 36.6–37.2; O2SAT 93–95
[2018-02-01] MEDS: IMIPENEM IV ×5 (00:59→23:46)
[2018-02-01] MEDS: CILASTATIN IV ×5 (00:59→23:46)
[2018-02-01] MEDS: SODIUM CHLORIDE 0.9% IV ×5 (00:59→23:46)
[2018-02-01 06:08] LABS: BUN Creatinine Ratio 24.4 (6-22); Blood Urea Nitrogen 22 mg/dL (7-17); C-Reactive Protein Quant 2.9 mg/dL (<1.0); Calcium 8.5 mg/dL (8.4-10.2); Carbon Dioxide 30 mmol/L (22-32); Chloride 105 mmol/L (98-107); Estimated Glomerular Filt Rate > 60.0 mL/min (>60); Glucose 124 mg/dL (80-110); HEMOLYSIS < 15 (0-50); Potassium 4.2 mmol/L (3.4-5.1); Sodium 141 mmol/L (137-145)
[2018-02-01 06:11] LABS: Hematocrit 23.2 % (36-46); Hemoglobin 7.8 g/dL (12.0-16.0); Mean Corpuscular HGB Conc 33.7 % (30-36); Platelet Count 221 X10^3/uL (150-400); Red Blood Cell Count 2.69 X10^6/uL (4.0-5.2); White Blood Cell Count 12.2 X10^3/uL (4.5-11.0)
[2018-02-01 06:16] LABS: Add Manual Diff / Slide Review YES
[2018-02-01 06:31] LABS: Erythrocyte Sedimentation Rate 64 MM/HR (0-20)
[2018-02-01] MEDS: HYDROMORPHONE PCA 6 MG/30 ML PCA.VIAL IV ×3 (06:47→21:18)
[2018-02-01 06:48] LABS: Neutrophils Absolute Manual 9394 /uL (3000-5900); Total Cells Counted 100
[2018-02-01] MEDS: INSULIN ASPART 100 UNIT/ML INSULN PEN SUBCUT ×2 (06:50→13:06)
[2018-02-01 07:09] LABS: Anisocytosis 2+; Ovalocytes 1+; Polychromasia 1+
--- NOTE | 2018-02-01 07:30 | DI.RAD.S_ITS ---
PROCEDURE: XR ABDOMEN MIN 2V INDICATIONS: ileus versus SBO after laparotomy TECHNIQUE: 2 views of the abdomen were acquired. COMPARISON: [facility], , XR ABDOMEN MIN 2V, 01/30/2018, 8:40. FINDINGS: Surgical changes and devices: None. Bowel: No pneumoperitoneum. The bowel gas pattern is again noted to demonstrate mild gaseous prominence in both the large and small bowel in a pattern considered more likely to represent ileus than obstruction.. Soft tissues: No masses; visualized solid organ contours appear normal in size. No suspicious abdominal calcifications. Bones: No suspicious bony abnormalities. IMPRESSION: Persistent large and small bowel mild ileus pattern, stable appearing aortic stent graft. No free air found. Dictated by: Michel Royal M.D. on 02/01/2018 at 8:43 Approved by: Michel Royal M.D. on 02/01/2018 at 8:44
--- NOTE | 2018-02-01 09:24 | PC.NURSE ---
Addendum entered by Lien Zamora R.N. 02/01/18 10:40: pt had sensation of having BM assisted with using BSC by Therapy. unable to pass stool at this time. Original Note: Day Shift Pt is A&O able to make needs known. NG clamped and pt transferred to w/c and went down for xrays. When patient arrived back used BSC noted to have loose stool dark brown/maroon in color was also mixed with urine. No c/o dizziness or lightheaded at this time. Abdomen is soft tender to touch, midline incision is well approximated with steven and sutures, NG output is clear/green in color, much more clear then yesterday, taking ice chips, denies nausea. TPN and fluids infusing per order. Call light within reach and bed alarm. encouraged use of I.S while in bed.
[2018-02-01] MEDS: TIMOLOL 0.25% OPHTH 1 DROPS EYE-BOTH (09:45)
[2018-02-01] MEDS: PANTOPRAZOLE 40 MG VIAL IV ×2 (09:46→20:34)
[2018-02-01] MEDS: SODIUM CHLORIDE 0.9% FLUSH 10 ML IV ×2 (09:46→20:34)
--- NOTE | 2018-02-01 11:29 | PT.IPTN ---
Current Diagnoses Hypokalemia (01/24/18) Essential (primary) hypertension (01/24/18) Lobar pneumonia, unspecified organism (01/24/18) Unspecified intestinal obstruction, unspecified as to partial versus complete obstruction (01/24/18) Age-related osteoporosis without current pathological fracture (01/24/18) Disorder of kidney and ureter, unspecified (01/24/18) Urinary tract infection, site not specified (01/24/18) Multiple fractures of ribs, left side, initial encounter for closed fracture (01/24/18) Acquired absence of kidney (01/24/18) Other specified postprocedural states (01/24/18) Surgery Performed Operation Date: 01/26/18 14:30 Actual Procedures p Exploratory Laparotomy GEN - Joel Castaneda MD Physical Therapy Treatment Note M2 PT-IP Current Condition Start: 01/27/18 12:45 Freq: NEEDED Status: Active Protocol: Document 01/31/18 09:30 AMB (Rec: 01/31/18 09:34 AMB [id number]) Physical Therapy Current Condition Current Condition Evaluation Date 01/27/18 Treatment Diagnosis 01/24/18: L sided Chest Pain SBO Onset Date 01/24/18 Precautions Abdominal Surgery Precautions Log Roll Lifting Restrictions Other Precautions Gait belt high on chest due to PICC line and abdominal incision. M3 PT-IP Subjective Start: 01/27/18 12:45 Freq: NEEDED Status: Active Protocol: Document 02/01/18 11:19 SA (Rec: 02/01/18 11:29 SA [email or web address]) Subjective Physical Therapy Visit Type Type Treatment Note Visit Start Time 10:13 Visit Stop Time 10:43 Total Visit Minutes 30 Number of METAL TURNER Visits 1 Physical Therapy Visit Comments Patient Comments Pt agreeable to walk and use BSC this AM. Therapy Pain Assessment Pain When Pain Assessed During Mobility Pain Present Pain Present Pain Reported Location Abdomen Intensity 3 Scale Used Numeric (1 - 10) Pain Management Techniques Re-positioning Timing of Activity with Medications M4 PT-IP Mobility and Gait Start: 01/27/18 12:45 Freq: NEEDED Status: Active Protocol: Document 02/01/18 11:19 SA (Rec: 02/01/18 11:29 SA [email or web address]) PT-Bed Mobility Assessment Rolling Type of Rolling Log Rolling Roll to Right Level of Assist Contact Guard Assistance Supine to Sit Supine to Sit Contact Guard Assistance Head of Bed Elevated Bedrails Sit to Supine Sit to Supine Minimal Assistance Head of Bed Elevated Bedrails Scooting Scooting to Edge of Bed Standby Assistance PT-Transfer Assessment Sit to and From Stand Sit to and from Stand Contact Guard Assistance Use of Upper Extremities Equipment Transfer Assistive Device Gait Belt Front Wheeled Walker Orthotic/Prosthetic Devices or Brace: No Transfers Transfer Destination Bed Bedside Commode Transfer Technique Stand Step Pivot Transfer Ability Level of Assist Contact Guard Assistance Comments Mobility Comments Pt denied dizziness/nausea with activity. Gait Assessment Gait Gait Assistance Required: Contact Guard Assist Distance (Feet) 65 Able to Maintain Weight Bearing Status Yes During Gait Assistive Devices Assistive Device Gait Belt Front Wheeled Walker Orthotic/Prosthetic Devices or Brace: No Gait Deviations General Gait Pattern Decreased Stride Length Decreased Feet Clearance Factors Limiting Gait Function Factors Limiting Gait Function Decreased Activity Tolerance Decreased Strength Poor Balance Comments Gait Comments Improved distance with noted decreased stride and foor clearance. Several standing rest breaks required. M5 PT-IP Objective Assessments Start: 01/27/18 12:45 Freq: NEEDED Status: Active Protocol: Document 01/27/18 14:17 LRN (Rec: 01/27/18 14:49 LRN [email or web address]) Orientation Orientation/Cognition Level of Alertness Alert Orientation Name Place Situation Language Function Ability No Deficits Noted Safety Awareness Understands Safety Issues Memory Description No Deficits Noted Gross Range of Motion Upper Extremity ROM Assessment Within Functional Limits Lower Extremity ROM Assessment Within Functional Limits Impairments Movement of RLE limited due to L lateral trunk pain. Strength Upper Extremity Strength Assessment Bilaterally Impaired Lower Extremity Strength Assessment Bilaterally Impaired Comments Strength Comments Strength impaired due to rib fracture and abdominal incision pain. M6 PT-IP Treatment Start: 01/27/18 12:45 Freq: NEEDED Status: Active Protocol: Document 02/01/18 11:19 SA (Rec: 02/01/18 11:29 SA [email or web address]) Physical Therapy Treatment Exercises Exercises Ankle Pumps Gluteal Sets Quad Sets Education Education Provided Safety Other Treatments Other Treatment Performed Standing balance with IV pole management. M7 PT-IP Assessment and Plan Start: 01/27/18 12:45 Freq: NEEDED Status: Active Protocol: Document 02/01/18 11:19 SA (Rec: 02/01/18 11:29 SA [email or web address]) PT Summary Assessment and Plan Potential Rehabilitation Potential Good Status of Condition at Evaluation Evolving Summary Assessment Summary Pt able to ambulate and stand pivot transfer on/off BSC, standing balance with functional tasks. Goals Bed Mobility Goal Standby Assistance Transfer Goal Standby Assistance Gait Goal Standby Assistance Front Wheel Walker Days to Meet Goals 2 Frequency of Treatment Frequency Of Treatment Twice a Day Treatment Plan Physical Therapy Treatment Plan Transfer Training Gait Training Therapeutic Exercise Post Op Education Other Recommendations and Next Treatment Cont to work on gait as Focus tolerated and LE strengthening Recommendations To Nursing Amount of Assist Needed 1 Person Assist Discharge Recommendations PT Discharge Recommendations SNF Rehab
[2018-02-01] MEDS: SODIUM CHLORIDE 0.9% 500 ML 42 ML IV (16:29)
--- NOTE | 2018-02-01 16:30 | PM.PN.1 ---
Subjective Date Patient Seen: 02/01/18 Time Patient Seen: 16:30 Interval history: FOLLOW UP ON PNEUMONIA, SBO, AND ACUTE RENAL INSUFFICIENCY Patient seen at bedside. She is doing well. No overnight events. She is still with NG tube in place. Still on TPN. Had small BM this morning. Producing Gas. No nausea/vomiting. Exam Vital Signs (past 8 hours): - 02/01/18 11:05 02/01/18 16:20 Temperature 98.1 F 98.1 F Pulse Rate 88 94 H Respiratory Rate 20 15 Blood Pressure 132/84 139/89 Pulse Oximetry 94 93 Fraction of Inspired Oxygen 24 Oxygen Delivery Method Room Air Oxygen Flow Rate 0 Narrative Exam Narrative: Gen: NAD, AAOx3 HEENT: PERRLA BL. NG tube in place Neck: Supple CV: RRR, no murmurs Resp: Breath sounds heard in all pichardo, no wheezing GI: Vertical incision wound with steven. clean. Healing well MSK: Normal ROM Skin: NO bruising Objective Labs Result Diagrams: 02/01/18 05:23 02/01/18 05:23 Labs: Laboratory Results - last 24 hr 01/31/18 02/01/18 02/01/18 17:58 05:23 05:23 WBC 12.2 H RBC 2.69 L Hgb 8.7 L 7.8 L Hct 26.9 L 23.2 L MCV 86.0 MCH 29.0 MCHC 33.7 RDW 18.0 H Plt Count 221 Neut % (Auto) Not Reportable Lymph % (Auto) Not Reportable [place] % (Auto) Not Reportable Eos % (Auto) Not Reportable Baso % (Auto) Not Reportable Total Counted 100 Seg Neutrophils % 73.0 H Band Neutrophils % 4.0 Lymphocytes % (Manual) 13.0 L Monocytes % (Manual) 5.0 Eosinophils % (Manual) 3.0 Metamyelocytes % 1.0 H Myelocytes % 1.0 H Neutrophils # (Manual) 9394 H RBC Morphology See below Polychromasia 1+ H Anisocytosis 2+ H Ovalocytes 1+ H ESR Sodium 141 Potassium 4.2 Chloride 105 Carbon Dioxide 30 BUN 22 H Creatinine 0.90 Estimated GFR > 60.0 BUN/Creatinine Ratio 24.4 H Glucose 124 H Calcium 8.5 C-Reactive Protein 02/01/18 02/01/18 05:23 05:23 WBC RBC Hgb Hct MCV MCH MCHC RDW Plt Count Neut % (Auto) Lymph % (Auto) [place] % (Auto) Eos % (Auto) Baso % (Auto) Total Counted Seg Neutrophils % Band Neutrophils % Lymphocytes % (Manual) Monocytes % (Manual) Eosinophils % (Manual) Metamyelocytes % Myelocytes % Neutrophils # (Manual) RBC Morphology Polychromasia Anisocytosis Ovalocytes ESR 64 H Sodium Potassium Chloride Carbon Dioxide BUN Creatinine Estimated GFR BUN/Creatinine Ratio Glucose Calcium C-Reactive Protein 2.9 H Assessment & Plan Plan: Assessment/Plan Narrative: 1. Pneumonia: - BL bases from CXR read on 01/24/18 - Continue Cilastatin/Imipenem 2. SBO (small bowel obstruction): - S/p Exploratory Lap January 26 - Patient is postop day 6 Today - WBC downtrending - 2 view of Abdomen notes clearing of pneumoperitoneum - Patient NPO with NG tube and TPN running through R PICC line - Bowel function starting to return 3. Hypokalemia - Resolved 4. Postoperative anemia - s/p 2U PRBC - Hb 7.8 today - Continue to monitor and transfuse as needed 5. Acute Kidney Injury - Resolved 6. Hypertension: - BP stable - Continue metoprolol IV PRN 7. Urinary tract infection: - Growing citrobacter, pending sensitivities - Continue Imipenem/Cilastatin until sensitivities are back Time Spent With Patient 25 min
--- NOTE | 2018-02-01 16:35 | PT.IPTN ---
Current Diagnoses Hypokalemia (01/24/18) Essential (primary) hypertension (01/24/18) Lobar pneumonia, unspecified organism (01/24/18) Unspecified intestinal obstruction, unspecified as to partial versus complete obstruction (01/24/18) Age-related osteoporosis without current pathological fracture (01/24/18) Disorder of kidney and ureter, unspecified (01/24/18) Urinary tract infection, site not specified (01/24/18) Multiple fractures of ribs, left side, initial encounter for closed fracture (01/24/18) Acquired absence of kidney (01/24/18) Other specified postprocedural states (01/24/18) Surgery Performed Operation Date: 01/26/18 14:30 Actual Procedures p Exploratory Laparotomy - Joel Castaneda MD Physical Therapy Treatment Note M2 PT-IP Current Condition Start: 01/27/18 12:45 Freq: NEEDED Status: Active Protocol: Document 01/31/18 09:30 AMB (Rec: 01/31/18 09:34 AMB [id number]) Physical Therapy Current Condition Current Condition Evaluation Date 01/27/18 Treatment Diagnosis 01/24/18: L sided Chest Pain SBO Onset Date 01/24/18 Precautions Abdominal Surgery Precautions Log Roll Lifting Restrictions Other Precautions Gait belt high on chest due to PICC line and abdominal incision. M3 PT-IP Subjective Start: 01/27/18 12:45 Freq: NEEDED Status: Active Protocol: Document 02/01/18 16:33 AB (Rec: 02/01/18 16:35 AB [id number]) Subjective Physical Therapy Visit Type Notes Pt with Hgb of 7.8. check with nurse and pt on hold due to low Hgb. nurse stated that she has to clarify with the doctor if pt is needing a transfusion. will f/u tomorrow . M
--- NOTE | 2018-02-01 17:39 | P.PN_ITS ---
Subjective Date Patient Seen: 02/01/18 Time Patient Seen: 17:36 Interval history: Complaining of occasional incisional pain. No abdominal pain otherwise. Did pass some flatus and small bowel movement early this morning. No significant subjective distention. No nausea or vomiting. Denies any subjective fever or chills. No chest pain or shortness of breath. No more issues with lightheadedness or evidence of orthostatic hypotension per Nursing. Exam Vital Signs (past 8 hours): - 02/01/18 11:05 02/01/18 16:20 Temperature 98.1 F 98.1 F Pulse Rate 88 94 H Respiratory Rate 20 15 Blood Pressure 132/84 139/89 Pulse Oximetry 94 93 Fraction of Inspired Oxygen 24 Oxygen Delivery Method Room Air Oxygen Flow Rate 0 Narrative Exam Narrative: Well-nourished well-developed female sitting comfortably in bedside chair in no acute distress. Alert oriented x3 Nasogastric tube is in place with no significant bloody output currently. Output remains at approximately 1 L per day however. Chest clear to auscultation bilaterally with regular rate and rhythm. No crackles or wheezes Abdomen is soft with active bowel sounds. Wound is clean, dry, and intact. Minimal ecchymosis. No erythema. No hematoma or seroma. She is appropriately tender without guarding or rebound. She has essentially nondistended. Extremities show no clubbing or significant edema. Objective Labs Result Diagrams: 02/01/18 05:23 02/01/18 05:23 Labs: Laboratory Results - last 24 hr 01/31/18 02/01/18 02/01/18 17:58 05:23 05:23 WBC 12.2 H RBC 2.69 L Hgb 8.7 L 7.8 L Hct 26.9 L 23.2 L MCV 86.0 MCH 29.0 MCHC 33.7 RDW 18.0 H Plt Count 221 Neut % (Auto) Not Reportable Lymph % (Auto) Not Reportable [place] % (Auto) Not Reportable Eos % (Auto) Not Reportable Baso % (Auto) Not Reportable Total Counted 100 Seg Neutrophils % 73.0 H Band Neutrophils % 4.0 Lymphocytes % (Manual) 13.0 L Monocytes % (Manual) 5.0 Eosinophils % (Manual) 3.0 Metamyelocytes % 1.0 H Myelocytes % 1.0 H Neutrophils # (Manual) 9394 H RBC Morphology See below Polychromasia 1+ H Anisocytosis 2+ H Ovalocytes 1+ H ESR Sodium 141 Potassium 4.2 Chloride 105 Carbon Dioxide 30 BUN 22 H Creatinine 0.90 Estimated GFR > 60.0 BUN/Creatinine Ratio 24.4 H Glucose 124 H Calcium 8.5 C-Reactive Protein 02/01/18 02/01/18 05:23 05:23 WBC RBC Hgb Hct MCV MCH MCHC RDW Plt Count Neut % (Auto) Lymph % (Auto) [place] % (Auto) Eos % (Auto) Baso % (Auto) Total Counted Seg Neutrophils % Band Neutrophils % Lymphocytes % (Manual) Monocytes % (Manual) Eosinophils % (Manual) Metamyelocytes % Myelocytes % Neutrophils # (Manual) RBC Morphology Polychromasia Anisocytosis Ovalocytes ESR 64 H Sodium Potassium Chloride Carbon Dioxide BUN Creatinine Estimated GFR BUN/Creatinine Ratio Glucose Calcium C-Reactive Protein 2.9 H Assessment & Plan Plan: Assessment/Plan Narrative: 77-year-old female postoperative day 6 from exploratory laparotomy with extensive lysis of adhesions now with slowly resolving postoperative ileus. We will clamp the NG tube and possibly discontinue tomorrow she tolerates this. Otherwise NPO except ice chips for now. Continue TPN. Electrolytes are corrected. Glucose well controlled. White blood cell count is trending down but hemoglobin has dropped to 7.8. I see no evidence of incisional or intra- abdominal hemorrhage. She may have upper gastrointestinal hemorrhage due to gastritis, gastric ulcer, or NG tube irritation. She is on proton pump inhibitor therapy as well as histamine stephanie therapy. I see no indication for upper endoscopy at this time, but I have no other explanation for the anemia of this magnitude. She may require further blood transfusion if her hemoglobin continues to decline. We will repeat the level tomorrow morning. I discussed all the above with the patient in detail. All questions were answered to her satisfaction, and she voiced understanding. Orders were written.
[2018-02-01] MEDS: FAT EMULSIONS 50 GM/250 ML EMULSION IV (18:31)
[2018-02-01] MEDS: AA 5 %/CALCIUM/LYTES/DEXT 20 % 1,000 ML with MULTIVITAMIN 10 ML, TRACE ELEMENTS 1 ML, F... 43.51 ML IV (18:31)
[2018-02-01] MEDS: LATANOPROST 0.005% OPHTH 2.5 ML 1 DROPS EYE-BOTH (21:10)
--- NOTE | 2018-02-01 22:28 | PC.NURSE ---
SHIFT NOTE Received pt sitting up in chair. A&Ox3, pleasant and cooperative. bowel sounds hypoactive. midline abdominal incision with steven, open to air and clean, dry and intact. pt reports having small BM during the day shift. pt rated pain 6-7/10, uses dilaudid PLAYER DEVELOPMENT MANAGER appropriately. NG clamped at approximately [address] Castaneda, pt denies any nausea or vomiting. double lumen PICC to RUE intact. TPN and lipids infused per JUN. pt had shower today with ARCHITECTURAL COATING FINISHER assist. call light within reach.
[2018-02-02] VITALS (9 sets, daily range): BP systolic 145–185; BP diastolic 81–99; PULSE 86–95; RESP 16–20; TEMP 36.1–37.4; O2SAT 95–99
[2018-02-02 05:59] LABS: BUN Creatinine Ratio 18.9 (6-22); Blood Urea Nitrogen 17 mg/dL (7-17); Calcium 8.5 mg/dL (8.4-10.2); Carbon Dioxide 27 mmol/L (22-32); Chloride 105 mmol/L (98-107); Estimated Glomerular Filt Rate > 60.0 mL/min (>60); Glucose 113 mg/dL (80-110); HEMOLYSIS < 15 (0-50); Potassium 4.5 mmol/L (3.4-5.1); Sodium 138 mmol/L (137-145)
[2018-02-02 06:01] LABS: Add Manual Diff / Slide Review YES; Hematocrit 22.8 % (36-46); Hemoglobin 7.9 g/dL (12.0-16.0); Mean Corpuscular HGB Conc 34.5 % (30-36); Mean Corpuscular Volume 86.8 fL (80-100); Platelet Count 252 X10^3/uL (150-400); Red Blood Cell Count 2.62 X10^6/uL (4.0-5.2); White Blood Cell Count 12.2 X10^3/uL (4.5-11.0)
[2018-02-02] MEDS: HYDROMORPHONE PCA 6 MG/30 ML PCA.VIAL IV ×2 (06:06→13:27)
[2018-02-02 06:07] LABS: Erythrocyte Sedimentation Rate 77 MM/HR (0-20)
[2018-02-02 06:08] LABS: C-Reactive Protein Quant 3.5 mg/dL (<1.0)
[2018-02-02] MEDS: INSULIN ASPART 100 UNIT/ML INSULN PEN SUBCUT ×2 (06:10→11:55)
[2018-02-02] MEDS: CILASTATIN IV ×2 (06:12→11:55)
[2018-02-02] MEDS: SODIUM CHLORIDE 0.9% IV ×2 (06:12→11:55)
[2018-02-02] MEDS: IMIPENEM IV ×2 (06:12→11:55)
[2018-02-02 06:43] LABS: Neutrophils Absolute Manual 10248 /uL (3000-5900); Total Cells Counted 100
[2018-02-02 06:44] LABS: Anisocytosis 2+
[2018-02-02 06:45] LABS: Ovalocytes 1+; Polychromasia 1+
[2018-02-02] MEDS: SODIUM CHLORIDE 0.9% 500 ML 42 ML IV ×2 (07:33→20:55)
--- NOTE | 2018-02-02 07:50 | PC.NURSE ---
Addendum entered by Lien Zamora R.N. 02/02/18 13:44: Pt assisted back to bed by PT reports pain 7/10 to abdomen medicated with 5mg oxycodone and assisted with repositioning. Pt used 2.2mg of dilaudid SOFTWARE ENGINEER WE[employer] SERVICES this shift. call light within reach. denies any nausea at this time is tolerating clear liquids. Original Note: Addendum entered by Lien Zamora R.N. 02/02/18 09:59: Pt reports pain is 7/10 to abdomen oxycodone given per new order. Pt ambulated in hallway with therapy, denies any dizziness or lightheaded with ambulation. Pt had 200ml out urine/stool with what appear coffee ground texture loose. color was dark black/green. Original Note: Addendum entered by Lien Zamora R.N. 02/02/18 08:40: Dr Castaneda removed NG, cleaned face and nose per pt request. Denies any nausea, requested apple juice given per new order for clear liquids. Original Note: Day Shift Pt is sitting up in bed reading. rats pain 8/10 to abdomen encouraged use of SOFTWARE ENGINEER WE[employer] SERVICES and assisted with repositioning. NG continues to be clamped at this time. Denies any nausea. Bowel tones are hypoactive to all quadrants, Denies passing flatus but reports she had 2 BM last night. Call light within reach and bed alarm on. IV fluids and TPN running per Emar. [id number]- re asses pain reports 4/10.
[2018-02-02] MEDS: PANTOPRAZOLE 40 MG VIAL IV ×2 (08:29→23:09)
[2018-02-02] MEDS: TIMOLOL 0.25% OPHTH 1 DROPS EYE-BOTH ×2 (08:30→20:57)
[2018-02-02] MEDS: SODIUM CHLORIDE 0.9% FLUSH 10 ML IV (08:30)
[2018-02-02] MEDS: OXYCODONE IR 5 MG TABLET PO ×3 (09:57→18:36)
[2018-02-02] MEDS: GABAPENTIN 300 MG CAPSULE PO ×2 (09:58→20:48)
[2018-02-02] MEDS: DOCUSATE 100 MG CAPSULE PO ×2 (09:58→20:48)
--- NOTE | 2018-02-02 10:09 | PT.IPTN ---
Current Diagnoses Hypokalemia (01/24/18) Essential (primary) hypertension (01/24/18) Lobar pneumonia, unspecified organism (01/24/18) Unspecified intestinal obstruction, unspecified as to partial versus complete obstruction (01/24/18) Age-related osteoporosis without current pathological fracture (01/24/18) Disorder of kidney and ureter, unspecified (01/24/18) Urinary tract infection, site not specified (01/24/18) Multiple fractures of ribs, left side, initial encounter for closed fracture (01/24/18) Acquired absence of kidney (01/24/18) Other specified postprocedural states (01/24/18) Surgery Performed Operation Date: 01/26/18 14:30 Actual Procedures p Exploratory Laparotomy - Joel Castaneda MD Physical Therapy Treatment Note M2 PT-IP Current Condition Start: 01/27/18 12:45 Freq: NEEDED Status: Active Protocol: Document 01/31/18 09:30 AMB (Rec: 01/31/18 09:34 AMB [id number]) Physical Therapy Current Condition Current Condition Evaluation Date 01/27/18 Treatment Diagnosis 01/24/18: L sided Chest Pain SBO Onset Date 01/24/18 Precautions Abdominal Surgery Precautions Log Roll Lifting Restrictions Other Precautions Gait belt high on chest due to PICC line and abdominal incision. M3 PT-IP Subjective Start: 01/27/18 12:45 Freq: NEEDED Status: Active Protocol: Document 02/02/18 09:49 SA (Rec: 02/02/18 10:06 SA [id number]) Subjective Physical Therapy Visit Type Type Treatment Note Visit Start Time 09:15 Visit Stop Time 09:40 Total Visit Minutes 25 Notes Spoke with Nursing regarding Hgb levels of patient. MD in this AM and no blood transfusion planned but he wants her to continue with activity. Hgb 7.9 and Hct 22.8 today. Educated pateint on close monitoring of symptoms and limiting activity for now untill levels improve. Number of SPEECH AND HEARING DIRECTOR Visits 1 Physical Therapy Visit Comments Patient Comments Pt wanting to ambulate and participate in PT this AM. Completee short distance walking in room. Therapy Pain Assessment Pain When Pain Assessed During Mobility Pain Present Pain Present Denied Pain M4 PT-IP Mobility and Gait Start: 01/27/18 12:45 Freq: NEEDED Status: Active Protocol: Document 02/02/18 09:49 (Rec: 02/02/18 10:06 [id number]) PT-Bed Mobility Assessment Rolling Type of Rolling Log Rolling Roll to Right Level of Assist Contact Guard Assistance Supine to Sit Supine to Sit Contact Guard Assistance Head of Bed Elevated Bedrails Scooting Scooting to Edge of Bed Standby Assistance PT-Transfer Assessment Sit to and From Stand Sit to and from Stand Standby Assistance Equipment Transfer Assistive Device Gait Belt Front Wheeled Walker Orthotic/Prosthetic Devices or Brace: No Transfers Transfer Destination Chair Bedside Commode Transfer Technique Stand Step Pivot Transfer Ability Level of Assist Contact Guard Assistance Comments Mobility Comments Pt denied symptoms of dizziness/light headed with activity. Gait Assessment Gait Gait Assistance Required: Contact Guard Assist Distance (Feet) 40 Able to Maintain Weight Bearing Status Yes During Gait Assistive Devices Assistive Device Gait Belt Front Wheeled Walker Orthotic/Prosthetic Devices or Brace: No Gait Deviations General Gait Pattern Decreased Stride Length Decreased Feet Clearance Factors Limiting Gait Function Factors Limiting Gait Function Decreased Activity Tolerance Decreased Strength Poor Balance Comments Gait Comments Short distance ambulation in room 20 feet x 2 with seated rest break between, cues for pacing and monitoring of symptoms. M5 PT-IP Objective Assessments Start: 01/27/18 12:45 Freq: NEEDED Status: Active Protocol: Document 01/27/18 14:17 LRN (Rec: 01/27/18 14:49 LRN [id number]) Orientation Orientation/Cognition Level of Alertness Alert Orientation Name Place Situation Language Function Ability No Deficits Noted Safety Awareness Understands Safety Issues Memory Description No Deficits Noted Gross Range of Motion Upper Extremity ROM Assessment Within Functional Limits Lower Extremity ROM Assessment Within Functional Limits Impairments Movement of RLE limited due to L lateral trunk pain. Strength Upper Extremity Strength Assessment Bilaterally Impaired Lower Extremity Strength Assessment Bilaterally Impaired Comments Strength Comments Strength impaired due to rib fracture and abdominal incision pain. M6 PT-IP Treatment Start: 01/27/18 12:45 Freq: NEEDED Status: Active Protocol: Document 02/02/18 09:49 (Rec: 02/02/18 10:06 [id number]) Physical Therapy Treatment Exercises Exercises Ankle Pumps Gluteal Sets Quad Sets Education Education Provided Precautions Safety Other Treatments Other Treatment Performed Standing balance with IV pole management. M7 PT-IP Assessment and Plan Start: 01/27/18 12:45 Freq: NEEDED Status: Active Protocol: Document 02/02/18 09:49 (Rec: 02/02/18 10:06 [id number]) PT Summary Assessment and Plan Potential Rehabilitation Potential Good Status of Condition at Evaluation Evolving Summary Assessment Summary Pt able to stand pivot tx to BSC and Chair usin gFWW safely , cues for pacing and safety. Frequency of Treatment Frequency Of Treatment Twice a Day Treatment Plan Physical Therapy Treatment Plan Transfer Training Gait Training Therapeutic Exercise Post Op Education Recommendations To Nursing Amount of Assist Needed 1 Person Assist Discharge Recommendations PT Discharge Recommendations SNF Rehab
--- NOTE | 2018-02-02 14:56 | PT.IPTN ---
Current Diagnoses Hypokalemia (01/24/18) Essential (primary) hypertension (01/24/18) Lobar pneumonia, unspecified organism (01/24/18) Unspecified intestinal obstruction, unspecified as to partial versus complete obstruction (01/24/18) Age-related osteoporosis without current pathological fracture (01/24/18) Disorder of kidney and ureter, unspecified (01/24/18) Urinary tract infection, site not specified (01/24/18) Multiple fractures of ribs, left side, initial encounter for closed fracture (01/24/18) Acquired absence of kidney (01/24/18) Other specified postprocedural states (01/24/18) Surgery Performed Operation Date: 01/26/18 14:30 Actual Procedures p Exploratory Laparotomy GEN - Joel Castaneda MD Physical Therapy Treatment Note M2 PT-IP Current Condition Start: 01/27/18 12:45 Freq: NEEDED Status: Active Protocol: Document 01/31/18 09:30 AMB (Rec: 01/31/18 09:34 AMB [id number]) Physical Therapy Current Condition Current Condition Evaluation Date 01/27/18 Treatment Diagnosis 01/24/18: L sided Chest Pain SBO Onset Date 01/24/18 Precautions Abdominal Surgery Precautions Log Roll Lifting Restrictions Other Precautions Gait belt high on chest due to PICC line and abdominal incision. M3 PT-IP Subjective Start: 01/27/18 12:45 Freq: NEEDED Status: Active Protocol: Document 02/02/18 14:53 SA (Rec: 02/02/18 14:56 SA [id number]) Subjective Physical Therapy Visit Type Type Patient Refusal Notes Pt reports abdominal pain as , nursing notified. First day with pt having juice/jello . Declined Pt this afternoon. M4 PT-IP Mobility and Gait Start: 01/27/18 12:45 Freq: NEEDED Status: Active Protocol: Document 02/02/18 09:49 SA (Rec: 02/02/18 10:06 SA [id number]) PT-Bed Mobility Assessment Rolling Type of Rolling Log Rolling Roll to Right Level of Assist Contact Guard Assistance Supine to Sit Supine to Sit Contact Guard Assistance Head of Bed Elevated Bedrails Scooting Scooting to Edge of Bed Standby Assistance PT-Transfer Assessment Sit to and From Stand Sit to and from Stand Standby Assistance Equipment Transfer Assistive Device Gait Belt Front Wheeled Walker Orthotic/Prosthetic Devices or Brace: No Transfers Transfer Destination Chair Bedside Commode Transfer Technique Stand Step Pivot Transfer Ability Level of Assist Contact Guard Assistance Comments Mobility Comments Pt denied symptoms of dizziness/light headed with activity. Gait Assessment Gait Gait Assistance Required: Contact Guard Assist Distance (Feet) 40 Able to Maintain Weight Bearing Status Yes During Gait Assistive Devices Assistive Device Gait Belt Front Wheeled Walker Orthotic/Prosthetic Devices or Brace: No Gait Deviations General Gait Pattern Decreased Stride Length Decreased Feet Clearance Factors Limiting Gait Function Factors Limiting Gait Function Decreased Activity Tolerance Decreased Strength Poor Balance Comments Gait Comments Short distance ambulation in room 20 feet x 2 with seated rest break between, cues for pacing and monitoring of symptoms. M5 PT-IP Objective Assessments Start: 01/27/18 12:45 Freq: NEEDED Status: Active Protocol: Document 01/27/18 14:17 LRN (Rec: 01/27/18 14:49 LRN [id number]) Orientation Orientation/Cognition Level of Alertness Alert Orientation Name Place Situation Language Function Ability No Deficits Noted Safety Awareness Understands Safety Issues Memory Description No Deficits Noted Gross Range of Motion Upper Extremity ROM Assessment Within Functional Limits Lower Extremity ROM Assessment Within Functional Limits Impairments Movement of RLE limited due to L lateral trunk pain. Strength Upper Extremity Strength Assessment Bilaterally Impaired Lower Extremity Strength Assessment Bilaterally Impaired Comments Strength Comments Strength impaired due to rib fracture and abdominal incision pain. M6 PT-IP Treatment Start: 01/27/18 12:45 Freq: NEEDED Status: Active Protocol: Document 02/02/18 09:49 SA (Rec: 02/02/18 10:06 [id number]) Physical Therapy Treatment Exercises Exercises Ankle Pumps Gluteal Sets Quad Sets Education Education Provided Precautions Safety Other Treatments Other Treatment Performed Standing balance with IV pole management. M7 PT-IP Assessment and Plan Start: 01/27/18 12:45 Freq: NEEDED Status: Active Protocol: Document 02/02/18 09:49 SA (Rec: 02/02/18 10:06 [id number]) PT Summary Assessment and Plan Potential Rehabilitation Potential Good Status of Condition at Evaluation Evolving Summary Assessment Summary Pt able to stand pivot tx to BSC and Chair usin gFWW safely , cues for pacing and safety. Frequency of Treatment Frequency Of Treatment Twice a Day Treatment Plan Physical Therapy Treatment Plan Transfer Training Gait Training Therapeutic Exercise Post Op Education Recommendations To Nursing Amount of Assist Needed 1 Person Assist Discharge Recommendations PT Discharge Recommendations SNF Rehab
--- NOTE | 2018-02-02 16:21 | PM.PN.1 ---
Subjective Date Patient Seen: 02/02/18 Time Patient Seen: 16:21 Interval history: FOLLOW UP ON PNEUMONIA, SBO WITH ADHESIONS, AND ACUTE RENAL INSUFFICIENCY Patient seen at bedside. She is doing well. No overnight events. NG tube removed Exam Vital Signs (past 8 hours): - 02/02/18 12:00 02/02/18 16:05 Temperature 97.8 F 98.1 F Pulse Rate 86 95 H Respiratory Rate 16 20 Blood Pressure 146/85 H 185/81 H Pulse Oximetry 99 Fraction of Inspired Oxygen 24 Oxygen Delivery Method Room Air Oxygen Flow Rate 0 Narrative Exam Narrative: Gen: NAD, AAOx3 HEENT: PERRLA BL. Neck: Supple CV: RRR, no murmurs Resp: Breath sounds heard in all pichardo, no wheezing GI: Vertical incision wound with steven. clean. Healing well MSK: Normal ROM Skin: NO bruising Objective Labs Result Diagrams: 02/02/18 05:22 02/02/18 05:22 Labs: Laboratory Results - last 24 hr 02/02/18 02/02/18 02/02/18 05:22 05:22 05:22 WBC 12.2 H RBC 2.62 L Hgb 7.9 L Hct 22.8 L MCV 86.8 MCH 30.0 MCHC 34.5 RDW 18.0 H Plt Count 252 Neut % (Auto) Not Reportable Lymph % (Auto) Not Reportable [place] % (Auto) Not Reportable Eos % (Auto) Not Reportable Baso % (Auto) Not Reportable Total Counted 100 Seg Neutrophils % 81.0 H Band Neutrophils % 3.0 Lymphocytes % (Manual) 11.0 L Monocytes % (Manual) 3.0 Eosinophils % (Manual) 1.0 L Myelocytes % 1.0 H Neutrophils # (Manual) 40938 H RBC Morphology See below Polychromasia 1+ H Anisocytosis 2+ H Ovalocytes 1+ H ESR 77 H D Sodium Potassium Chloride Carbon Dioxide BUN Creatinine Estimated GFR BUN/Creatinine Ratio Glucose Calcium C-Reactive Protein 3.5 H 02/02/18 05:22 WBC RBC Hgb Hct MCV MCH MCHC RDW Plt Count Neut % (Auto) Lymph % (Auto) [place] % (Auto) Eos % (Auto) Baso % (Auto) Total Counted Seg Neutrophils % Band Neutrophils % Lymphocytes % (Manual) Monocytes % (Manual) Eosinophils % (Manual) Myelocytes % Neutrophils # (Manual) RBC Morphology Polychromasia Anisocytosis Ovalocytes ESR Sodium 138 Potassium 4.5 Chloride 105 Carbon Dioxide 27 BUN 17 Creatinine 0.90 Estimated GFR > 60.0 BUN/Creatinine Ratio 18.9 Glucose 113 H Calcium 8.5 C-Reactive Protein Assessment & Plan Plan: Assessment/Plan Narrative: 1. Questionable PNA: - BL bases were questionable for infection on CXR read on 01/24/18, however subsequent CXRs were negative - Less likely PNA - Will finish therapy for UTI but will no longer treat for PNA 2. SBO (small bowel obstruction): - S/p Exploratory Lap January 26 and adhesion lysis - Patient is postop day 7 Today - WBC stable - 2 view of Abdomen notes clearing of pneumoperitoneum - Patient is on CLD now and TPN running through R PICC line - Bowel function starting to return 3. Postoperative anemia - s/p 2U PRBC - Hb 7.9 today, stabilized - Continue to monitor and transfuse as needed 4. Hypertension: - BP stable - Continue metoprolol IV PRN 5. Urinary tract infection: - Growing citrobacter - Will switch to bactrim DS 1 tab BID for 3 more days Time Spent evaluating and providing care for Patient 25 min
--- NOTE | 2018-02-02 18:20 | PM.PN.1 ---
Subjective Date Patient Seen: 02/02/18 Time Patient Seen: 18:21 Interval history: Patient seen and examined this morning at approximately 8:00 a.m. and seen again currently this evening. She has no new complaints. This morning she denied any nausea or vomiting and had tolerated NG tube clamping overnight. NG tube was removed this morning and she was begun on clear liquids. She has tolerated a clear liquid diet throughout the day today without issue. She reports flatus and stool. Pain is controlled on current regimen which was switched to oxycodone and DICE MANAGER for breakthrough. However the continuous mode of the DICE MANAGER was stopped. No dysuria or hematuria. Denies dizziness or lightheadedness. No chest pain or shortness of breath. Exam Vital Signs (past 8 hours): - 02/02/18 12:00 02/02/18 16:05 Temperature 97.8 F 98.1 F Pulse Rate 86 95 H Respiratory Rate 16 20 Blood Pressure 146/85 H 185/81 H Pulse Oximetry 99 Fraction of Inspired Oxygen 24 Oxygen Delivery Method Room Air Oxygen Flow Rate 0 Narrative Exam Narrative: Well-nourished well-developed elderly female in no acute distress. Alert oriented x3. She is sitting comfortably in bed. She ambulated with physical therapy today. Remains afebrile and hemodynamically stable with no tachycardia Telemetry shows sinus rhythm. Urine output is adequate Abdomen is soft, nondistended, no masses. She is appropriately tender without guarding or rebound. Wound is clean, dry, and intact without erythema or ecchymosis. Extremities show no clubbing, cyanosis, or significant edema Objective Labs Result Diagrams: 02/02/18 05:22 02/02/18 05:22 Labs: Laboratory Results - last 24 hr 02/02/18 02/02/18 02/02/18 05:22 05:22 05:22 WBC 12.2 H RBC 2.62 L Hgb 7.9 L Hct 22.8 L MCV 86.8 MCH 30.0 MCHC 34.5 RDW 18.0 H Plt Count 252 Neut % (Auto) Not Reportable Lymph % (Auto) Not Reportable [place] % (Auto) Not Reportable Eos % (Auto) Not Reportable Baso % (Auto) Not Reportable Total Counted 100 Seg Neutrophils % 81.0 H Band Neutrophils % 3.0 Lymphocytes % (Manual) 11.0 L Monocytes % (Manual) 3.0 Eosinophils % (Manual) 1.0 L Myelocytes % 1.0 H Neutrophils # (Manual) 65202 H RBC Morphology See below Polychromasia 1+ H Anisocytosis 2+ H Ovalocytes 1+ H ESR 77 H D Sodium Potassium Chloride Carbon Dioxide BUN Creatinine Estimated GFR BUN/Creatinine Ratio Glucose Calcium C-Reactive Protein 3.5 H 02/02/18 05:22 WBC RBC Hgb Hct MCV MCH MCHC RDW Plt Count Neut % (Auto) Lymph % (Auto) [place] % (Auto) Eos % (Auto) Baso % (Auto) Total Counted Seg Neutrophils % Band Neutrophils % Lymphocytes % (Manual) Monocytes % (Manual) Eosinophils % (Manual) Myelocytes % Neutrophils # (Manual) RBC Morphology Polychromasia Anisocytosis Ovalocytes ESR Sodium 138 Potassium 4.5 Chloride 105 Carbon Dioxide 27 BUN 17 Creatinine 0.90 Estimated GFR > 60.0 BUN/Creatinine Ratio 18.9 Glucose 113 H Calcium 8.5 C-Reactive Protein Remains significantly anemic but stable. No evidence of active ongoing bleeding. Assessment & Plan Plan: Assessment/Plan Narrative: 77-year-old female postoperative day 7 from exploratory laparotomy with lysis of adhesions. She is doing well and beginning to resolve her ileus. Continue clear liquid diet. If he tolerates this throughout the evening will advance to regular diet tomorrow. Will discontinue TPN once she is tolerating a regular diet, possibly tomorrow. Wean DICE MANAGER to discontinue possibly tomorrow. Agree with switching to Bactrim oral antibiotics and discontinuing after 3 days. No longer requires imipenem. No indication for transfusion currently. Will follow her clinically for any evidence of orthostatic hypotension or active bleeding at which point she would require transfusion. Continue proton pump inhibitor therapy. Discontinue telemetry. I discussed all of this with her in detail. She feels that she would benefit from ongoing outpatient physical therapy and occupational therapy in an extended care facility such as [facility]. Will ask patient service coordinator to evaluate for such, but I believe this is entirely reasonable. All questions were answered to her satisfaction, and she voiced understanding. Orders were written.
--- NOTE | 2018-02-02 18:26 | P.PN_ITS ---
Subjective Date Patient Seen: 02/02/18 Time Patient Seen: 18:21 Interval history: Patient seen and examined this morning at approximately 8:00 a.m. and seen again currently this evening. She has no new complaints. This morning she denied any nausea or vomiting and had tolerated NG tube clamping overnight. NG tube was removed this morning and she was begun on clear liquids. She has tolerated a clear liquid diet throughout the day today without issue. She reports flatus and stool. Pain is controlled on current regimen which was switched to oxycodone and CORE FINISHER for breakthrough. However the continuous mode of the CORE FINISHER was stopped. No dysuria or hematuria. Denies dizziness or lightheadedness. No chest pain or shortness of breath. Exam Vital Signs (past 8 hours): - 02/02/18 12:00 02/02/18 16:05 Temperature 97.8 F 98.1 F Pulse Rate 86 95 H Respiratory Rate 16 20 Blood Pressure 146/85 H 185/81 H Pulse Oximetry 99 Fraction of Inspired Oxygen 24 Oxygen Delivery Method Room Air Oxygen Flow Rate 0 Narrative Exam Narrative: Well-nourished well-developed elderly female in no acute distress. Alert oriented x3. She is sitting comfortably in bed. She ambulated with physical therapy today. Remains afebrile and hemodynamically stable with no tachycardia Telemetry shows sinus rhythm. Urine output is adequate Abdomen is soft, nondistended, no masses. She is appropriately tender without guarding or rebound. Wound is clean, dry, and intact without erythema or ecchymosis. Extremities show no clubbing, cyanosis, or significant edema Objective Labs Result Diagrams: 02/02/18 05:22 02/02/18 05:22 Labs: Laboratory Results - last 24 hr 02/02/18 02/02/18 02/02/18 05:22 05:22 05:22 WBC 12.2 H RBC 2.62 L Hgb 7.9 L Hct 22.8 L MCV 86.8 MCH 30.0 MCHC 34.5 RDW 18.0 H Plt Count 252 Neut % (Auto) Not Reportable Lymph % (Auto) Not Reportable [place] % (Auto) Not Reportable Eos % (Auto) Not Reportable Baso % (Auto) Not Reportable Total Counted 100 Seg Neutrophils % 81.0 H Band Neutrophils % 3.0 Lymphocytes % (Manual) 11.0 L Monocytes % (Manual) 3.0 Eosinophils % (Manual) 1.0 L Myelocytes % 1.0 H Neutrophils # (Manual) 69621 H RBC Morphology See below Polychromasia 1+ H Anisocytosis 2+ H Ovalocytes 1+ H ESR 77 H D Sodium Potassium Chloride Carbon Dioxide BUN Creatinine Estimated GFR BUN/Creatinine Ratio Glucose Calcium C-Reactive Protein 3.5 H 02/02/18 05:22 WBC RBC Hgb Hct MCV MCH MCHC RDW Plt Count Neut % (Auto) Lymph % (Auto) [place] % (Auto) Eos % (Auto) Baso % (Auto) Total Counted Seg Neutrophils % Band Neutrophils % Lymphocytes % (Manual) Monocytes % (Manual) Eosinophils % (Manual) Myelocytes % Neutrophils # (Manual) RBC Morphology Polychromasia Anisocytosis Ovalocytes ESR Sodium 138 Potassium 4.5 Chloride 105 Carbon Dioxide 27 BUN 17 Creatinine 0.90 Estimated GFR > 60.0 BUN/Creatinine Ratio 18.9 Glucose 113 H Calcium 8.5 C-Reactive Protein Remains significantly anemic but stable. No evidence of active ongoing bleeding. Assessment & Plan Plan: Assessment/Plan Narrative: 77-year-old female postoperative day 7 from exploratory laparotomy with lysis of adhesions. She is doing well and beginning to resolve her ileus. Continue clear liquid diet. If he tolerates this throughout the evening will advance to regular diet tomorrow. Will discontinue TPN once she is tolerating a regular diet, possibly tomorrow. Wean CORE FINISHER to discontinue possibly tomorrow. Agree with switching to Bactrim oral antibiotics and discontinuing after 3 days. No longer requires imipenem. No indication for transfusion currently. Will follow her clinically for any evidence of orthostatic hypotension or active bleeding at which point she would require transfusion. Continue proton pump inhibitor therapy. Discontinue telemetry. I discussed all of this with her in detail. She feels that she would benefit from ongoing outpatient physical therapy and occupational therapy in an extended care facility such as [facility]. Will ask cost coordinator to evaluate for such, but I believe this is entirely reasonable. All questions were answered to her satisfaction, and she voiced understanding. Orders were written.
[2018-02-02] MEDS: AA 5 %/CALCIUM/LYTES/DEXT 20 % 1,000 ML with MULTIVITAMIN 10 ML, TRACE ELEMENTS 1 ML, F... 43.51 ML IV (18:32)
[2018-02-02] MEDS: SENNOSIDES 8.6 MG TABLET PO (20:49)
[2018-02-02] MEDS: TRIMETH/SULFA 160/800 (DS) TABLET 1 TAB PO (20:50)
[2018-02-02] MEDS: LATANOPROST 0.005% OPHTH 2.5 ML 1 DROPS EYE-BOTH (20:58)
[2018-02-03] VITALS (13 sets, daily range): BP systolic 111–157; BP diastolic 64–99; PULSE 84–104; RESP 16–20; TEMP 36.3–37.1; O2SAT 92–99
--- NOTE | 2018-02-03 05:35 | PC.NURSE ---
Pt. denies any pain & nausea. Did not used her Dilaudid SEMICONDUCTOR DIES LOADER all shift, CBG 115 X2. Will cont. POC & monitor.
[2018-02-03 05:51] LABS: Add Manual Diff / Slide Review NO; Basophils Percent Auto 0.3 % (0-2); Eosinophils Percent Auto 1.8 % (2-4); Hematocrit 27.1 % (36-46); Hemoglobin 8.9 g/dL (12.0-16.0); Lymphocytes Percent Auto 20.5 % (25-40); Mean Corpuscular HGB Conc 32.8 % (30-36); Mean Corpuscular Hemoglobin 29.4 PG (26-34); Mean Corpuscular Volume 89.8 fL (80-100); Monocytes Percent Auto 11.5 % (3-14); Neutrophils Absolute Auto 7700 /uL (3000-5900); Neutrophils Percent Auto 65.9 % (50-75); Platelet Count 301 X10^3/uL (150-400); Red Blood Cell Count 3.02 X10^6/uL (4.0-5.2); Red Cell Distribution Width 17.5 % (11.6-14.8); White Blood Cell Count 11.7 X10^3/uL (4.5-11.0)
[2018-02-03 05:58] LABS: BUN Creatinine Ratio 13.6 (6-22); Blood Urea Nitrogen 15 mg/dL (7-17); Carbon Dioxide 26 mmol/L (22-32); Chloride 105 mmol/L (98-107); Estimated Glomerular Filt Rate 48.3 mL/min (>60); Glucose 115 mg/dL (80-110); HEMOLYSIS < 15 (0-50); Potassium 4.8 mmol/L (3.4-5.1); Sodium 138 mmol/L (137-145)
[2018-02-03] MEDS: TRIMETH/SULFA 160/800 (DS) TABLET 1 TAB PO ×2 (09:27→21:59)
[2018-02-03] MEDS: DOCUSATE 100 MG CAPSULE PO ×2 (09:27→21:59)
[2018-02-03] MEDS: GABAPENTIN 300 MG CAPSULE PO ×2 (09:28→21:54)
[2018-02-03] MEDS: CARVEDILOL 3.125 MG TABLET PO ×2 (09:48→21:54)
[2018-02-03] MEDS: DULOXETINE 30 MG CAPSULE 60 MG PO (09:49)
[2018-02-03] MEDS: TIMOLOL 0.25% OPHTH 1 DROPS EYE-BOTH ×2 (09:50→21:59)
[2018-02-03] MEDS: SODIUM CHLORIDE 0.9% FLUSH 10 ML IV (09:51)
--- NOTE | 2018-02-03 09:56 | PM.PN.1 ---
Subjective Date Patient Seen: 02/03/18 Time Patient Seen: 09:56 Interval history: Denies significant pain. Has not used her MEDICAL SCIENTIFIC LIAISON since yesterday. No nausea or vomiting. Reports flatus and small bowel movement yesterday. Passing flatus this morning. Tolerated clear liquids although her appetite is still somewhat minimal. Continues to feel somewhat weak and easily fatigued but is ambulating with assistance. No subjective fever or chills. No dysuria. Exam Vital Signs (past 8 hours): - 02/03/18 03:00 02/03/18 07:45 02/03/18 09:48 Temperature 97.6 F 97.7 F Pulse Rate 84 85 85 Respiratory Rate 16 18 Blood Pressure 144/83 H 157/99 H 155/99 H Pulse Oximetry 99 98 Fraction of Inspired Oxygen 24 Oxygen Delivery Method Room Air Oxygen Flow Rate 0 Narrative Exam Narrative: Well-nourished well-developed female in no acute distress sitting comfortably in bed. Alert oriented x3 Sclera nonicteric Abdomen soft, nondistended, no masses. She is appropriately tender to palpation without guarding or rebound. Wound is clean, dry, and intact. Extremities show no clubbing, cyanosis, or edema Objective Labs Result Diagrams: 02/03/18 05:15 02/03/18 05:15 Labs: Laboratory Results - last 24 hr 02/03/18 02/03/18 05:15 05:15 WBC 11.7 H RBC 3.02 L Hgb 8.9 L Hct 27.1 L MCV 89.8 D MCH 29.4 MCHC 32.8 RDW 17.5 H Plt Count 301 Neut % (Auto) 65.9 Lymph % (Auto) 20.5 L [place] % (Auto) 11.5 Eos % (Auto) 1.8 L Baso % (Auto) 0.3 Neut # (Auto) 7700 H Sodium 138 Potassium 4.8 Chloride 105 Carbon Dioxide 26 BUN 15 Creatinine 1.10 H Estimated GFR 48.3 L BUN/Creatinine Ratio 13.6 Glucose 115 H Calcium 9.0 Hemoglobin and electrolytes are stable. White blood cell count is returning to normal. Assessment & Plan Plan: Assessment/Plan Narrative: 77-year-old female with ongoing recovery from exploratory laparotomy with lysis of adhesions. Her ileus is resolving as anticipated at this point. Will advance to a regular diet. Saline lock the IV and discontinue the MEDICAL SCIENTIFIC LIAISON. Discontinue TPN after the current bag is infused. Add Ensure for nutritional supplementation. Out of bed and ambulate as much as possible. Continue bowel regimen. Restart home medications. Continue oral analgesia including gabapentin. If she continues to do this well and tolerates a regular diet then anticipate potential discharge from the hospital tomorrow to [facility] facility. I have discussed her case with discharge planning. Given her anemia, debilitation, need for ongoing physical therapy, and need for ongoing occupational therapy with rehabilitation she would be a good candidate for [facility]. She is agreeable to such. All questions were answered to her satisfaction, and she voiced understanding. Orders were written.
--- NOTE | 2018-02-03 10:00 | P.PN_ITS ---
Subjective Date Patient Seen: 02/03/18 Time Patient Seen: 09:56 Interval history: Denies significant pain. Has not used her WELDER PRODUCTION LINE COMBINATION since yesterday. No nausea or vomiting. Reports flatus and small bowel movement yesterday. Passing flatus this morning. Tolerated clear liquids although her appetite is still somewhat minimal. Continues to feel somewhat weak and easily fatigued but is ambulating with assistance. No subjective fever or chills. No dysuria. Exam Vital Signs (past 8 hours): - 02/03/18 03:00 02/03/18 07:45 02/03/18 09:48 Temperature 97.6 F 97.7 F Pulse Rate 84 85 85 Respiratory Rate 16 18 Blood Pressure 144/83 H 157/99 H 155/99 H Pulse Oximetry 99 98 Fraction of Inspired Oxygen 24 Oxygen Delivery Method Room Air Oxygen Flow Rate 0 Narrative Exam Narrative: Well-nourished well-developed female in no acute distress sitting comfortably in bed. Alert oriented x3 Sclera nonicteric Abdomen soft, nondistended, no masses. She is appropriately tender to palpation without guarding or rebound. Wound is clean, dry, and intact. Extremities show no clubbing, cyanosis, or edema Objective Labs Result Diagrams: 02/03/18 05:15 02/03/18 05:15 Labs: Laboratory Results - last 24 hr 02/03/18 02/03/18 05:15 05:15 WBC 11.7 H RBC 3.02 L Hgb 8.9 L Hct 27.1 L MCV 89.8 D MCH 29.4 MCHC 32.8 RDW 17.5 H Plt Count 301 Neut % (Auto) 65.9 Lymph % (Auto) 20.5 L [place] % (Auto) 11.5 Eos % (Auto) 1.8 L Baso % (Auto) 0.3 Neut # (Auto) 7700 H Sodium 138 Potassium 4.8 Chloride 105 Carbon Dioxide 26 BUN 15 Creatinine 1.10 H Estimated GFR 48.3 L BUN/Creatinine Ratio 13.6 Glucose 115 H Calcium 9.0 Hemoglobin and electrolytes are stable. White blood cell count is returning to normal. Assessment & Plan Plan: Assessment/Plan Narrative: 77-year-old female with ongoing recovery from exploratory laparotomy with lysis of adhesions. Her ileus is resolving as anticipated at this point. Will advance to a regular diet. Saline lock the IV and discontinue the WELDER PRODUCTION LINE COMBINATION. Discontinue TPN after the current bag is infused. Add Ensure for nutritional supplementation. Out of bed and ambulate as much as possible. Continue bowel regimen. Restart home medications. Continue oral analgesia including gabapentin. If she continues to do this well and tolerates a regular diet then anticipate potential [facility] I have discussed her case with discharge planning. Given her anemia , debilitation, need for ongoing physical therapy, and need for ongoing occupational therapy with rehabilitation she would be a good candidate for [facility]. She is agreeable to such. All questions were answered to her satisfaction, and she voiced understanding. Orders were written.
--- NOTE | 2018-02-03 10:30 | PT.IPTN ---
Current Diagnoses Hypokalemia (01/24/18) Essential (primary) hypertension (01/24/18) Lobar pneumonia, unspecified organism (01/24/18) Unspecified intestinal obstruction, unspecified as to partial versus complete obstruction (01/24/18) Age-related osteoporosis without current pathological fracture (01/24/18) Disorder of kidney and ureter, unspecified (01/24/18) Urinary tract infection, site not specified (01/24/18) Multiple fractures of ribs, left side, initial encounter for closed fracture (01/24/18) Acquired absence of kidney (01/24/18) Other specified postprocedural states (01/24/18) Surgery Performed Operation Date: 01/26/18 14:30 Actual Procedures p Exploratory Laparotomy GEN - Joel Castaneda MD Physical Therapy Treatment Note M2 PT-IP Current Condition Start: 01/27/18 12:45 Freq: NEEDED Status: Active Protocol: Document 01/31/18 09:30 AMB (Rec: 01/31/18 09:34 AMB [id number]) Physical Therapy Current Condition Current Condition Evaluation Date 01/27/18 Treatment Diagnosis 01/24/18: L sided Chest Pain SBO Onset Date 01/24/18 Precautions Abdominal Surgery Precautions Log Roll Lifting Restrictions Other Precautions Gait belt high on chest due to PICC line and abdominal incision. M3 PT-IP Subjective Start: 01/27/18 12:45 Freq: NEEDED Status: Active Protocol: Document 02/03/18 10:22 SA (Rec: 02/03/18 10:30 SA [email or web address]) Subjective Physical Therapy Visit Type Type Treatment Note Visit Start Time 08:39 Visit Stop Time 09:03 Total Visit Minutes 24 Notes Hgb 8.9 and Hct 27.1. improving levels. Number of REMELT FURNACE EXPEDITER Visits 2 Physical Therapy Visit Comments Patient Comments Pt states pain minimal this AM , agreeable to participate in PT. Therapy Pain Assessment Pain When Pain Assessed During Mobility Pain Present Pain Present Denied Pain M4 PT-IP Mobility and Gait Start: 01/27/18 12:45 Freq: NEEDED Status: Active Protocol: Document 02/03/18 10:22 SA (Rec: 02/03/18 10:30 SA [email or web address]) PT-Bed Mobility Assessment Rolling Type of Rolling Log Rolling Roll to Right Supine to Sit Supine to Sit Contact Guard Assistance Head of Bed Elevated Bedrails Scooting Scooting to Edge of Bed Standby Assistance PT-Transfer Assessment Sit to and From Stand Sit to and from Stand Standby Assistance Equipment Transfer Assistive Device Gait Belt Front Wheeled Walker Orthotic/Prosthetic Devices or Brace: No Transfers Transfer Destination Chair Transfer Technique Stand Step Pivot Transfer Ability Level of Assist Standby Assistance Comments Mobility Comments No symptoms today, decreased safety cues needed with mobility training. Gait Assessment Gait Gait Assistance Required: Contact Guard Assist Distance (Feet) 65 Able to Maintain Weight Bearing Status Yes During Gait Assistive Devices Assistive Device Gait Belt Front Wheeled Walker Orthotic/Prosthetic Devices or Brace: No Gait Deviations General Gait Pattern Decreased Stride Length Decreased Feet Clearance Factors Limiting Gait Function Factors Limiting Gait Function Decreased Activity Tolerance Decreased Strength Poor Balance Comments Gait Comments Gait training in room/pereira with turning and SBA-CGA with min cues for safety. M5 PT-IP Objective Assessments Start: 01/27/18 12:45 Freq: NEEDED Status: Active Protocol: Document 01/27/18 14:17 LRN (Rec: 01/27/18 14:49 LRN [email or web address]) Orientation Orientation/Cognition Level of Alertness Alert Orientation Name Place Situation Language Function Ability No Deficits Noted Safety Awareness Understands Safety Issues Memory Description No Deficits Noted Gross Range of Motion Upper Extremity ROM Assessment Within Functional Limits Lower Extremity ROM Assessment Within Functional Limits Impairments Movement of RLE limited due to L lateral trunk pain. Strength Upper Extremity Strength Assessment Bilaterally Impaired Lower Extremity Strength Assessment Bilaterally Impaired Comments Strength Comments Strength impaired due to rib fracture and abdominal incision pain. M6 PT-IP Treatment Start: 01/27/18 12:45 Freq: NEEDED Status: Active Protocol: Document 02/03/18 10:22 SA (Rec: 02/03/18 10:30 SA [email or web address]) Physical Therapy Treatment Exercises Exercises Ankle Pumps Gluteal Sets Quad Sets Heel Slides Education Education Provided Precautions Safety Other Treatments Other Treatment Performed Education for abdominal muscle recruitment with glut sets to perform in sitting. M7 PT-IP Assessment and Plan Start: 01/27/18 12:45 Freq: NEEDED Status: Active Protocol: Document 02/03/18 10:22 SA (Rec: 02/03/18 10:30 SA [email or web address]) PT Summary Assessment and Plan Potential Rehabilitation Potential Good Status of Condition at Evaluation Evolving Summary Assessment Summary Prgressing mobility with improving standing/ ambualtion ability. Goals Bed Mobility Goal Standby Assistance Transfer Goal Standby Assistance Gait Goal Standby Assistance Front Wheel Walker Frequency of Treatment Frequency Of Treatment Twice a Day Recommendations To Nursing Amount of Assist Needed 1 Person Assist Discharge Recommendations PT Discharge Recommendations SNF Rehab
[2018-02-03] MEDS: OXYCODONE IR 5 MG TABLET PO ×2 (11:16→19:20)
[2018-02-03] MEDS: INSULIN ASPART 100 UNIT/ML INSULN PEN SUBCUT ×2 (12:58→18:23)
--- NOTE | 2018-02-03 13:09 | CM.DPC ---
DCP Cont: Spoke to Dr. Castaneda this morning. Stated that patient could potentially be discharged tomorrow. Went ahead and updated Ashley at [facility]. She is aware. P: DCP to continue to follow closely. Plan is for patient to go to [facility]. Florencia Kent RN/Sponge Press Operator
--- NOTE | 2018-02-03 14:35 | PC.NURSE ---
Post-op: Pt reports she is doing much better. Has been up and amb in the hallways. Started a general diet and had no problems w/gi discomfort or nausea. Is passing flatus but no bm yet this shift. Po pain med x2 and effective. Up in the chair for a couple of hours. Pt reports feeling sleepier during the day today. IVF -> SL and RUBBER TESTER d/c. Has been more awake this afternoon. Currently reading. Denies any concerns. Cont w/poc.
--- NOTE | 2018-02-03 16:03 | PT.IPTN ---
Current Diagnoses Hypokalemia (01/24/18) Essential (primary) hypertension (01/24/18) Lobar pneumonia, unspecified organism (01/24/18) Unspecified intestinal obstruction, unspecified as to partial versus complete obstruction (01/24/18) Age-related osteoporosis without current pathological fracture (01/24/18) Disorder of kidney and ureter, unspecified (01/24/18) Urinary tract infection, site not specified (01/24/18) Multiple fractures of ribs, left side, initial encounter for closed fracture (01/24/18) Acquired absence of kidney (01/24/18) Other specified postprocedural states (01/24/18) Surgery Performed Operation Date: 01/26/18 14:30 Actual Procedures p Exploratory Laparotomy - Joel Castaneda MD Physical Therapy Treatment Note M2 PT-IP Current Condition Start: 01/27/18 12:45 Freq: NEEDED Status: Active Protocol: Document 01/31/18 09:30 AMB (Rec: 01/31/18 09:34 AMB [id number]) Physical Therapy Current Condition Current Condition Evaluation Date 01/27/18 Treatment Diagnosis 01/24/18: L sided Chest Pain SBO Onset Date 01/24/18 Precautions Abdominal Surgery Precautions Log Roll Lifting Restrictions Other Precautions Gait belt high on chest due to PICC line and abdominal incision. M3 PT-IP Subjective Start: 01/27/18 12:45 Freq: NEEDED Status: Active Protocol: Document 02/03/18 15:50 SA (Rec: 02/03/18 16:03 SA [id number]) Subjective Physical Therapy Visit Type Type Treatment Note Visit Start Time 13:53 Visit Stop Time 14:18 Total Visit Minutes 25 Notes Pt up in chair visiting with son. Number of ELEVATOR ERECTOR Visits 3 Physical Therapy Visit Comments Patient Comments Pt has some c/o abdominal pain but wants to get up for PT. Stated she had actual food for lunch today. Therapy Pain Assessment Pain When Pain Assessed During Mobility Pain Present Pain Present Pain Reported Location Abdomen Intensity 3 Scale Used Numeric (1 - 10) M4 PT-IP Mobility and Gait Start: 01/27/18 12:45 Freq: NEEDED Status: Active Protocol: Document 02/03/18 15:50 SA (Rec: 02/03/18 16:03 SA [id number]) PT-Bed Mobility Assessment Sit to Supine Sit to Supine Standby Assistance Scooting Scooting to Edge of Bed Standby Assistance PT-Transfer Assessment Sit to and From Stand Sit to and from Stand Standby Assistance Equipment Transfer Assistive Device Gait Belt Front Wheeled Walker Orthotic/Prosthetic Devices or Brace: Yes Transfers Transfer Destination Bed Transfer Technique Stand Step Pivot Transfer Ability Level of Assist Standby Assistance Comments Mobility Comments No symptoms this afternoon. Min cues for safety with stand pivot txs. Gait Assessment Gait Gait Assistance Required: Contact Guard Assist Distance (Feet) 55 Able to Maintain Weight Bearing Status Yes During Gait Assistive Devices Assistive Device Gait Belt Front Wheeled Walker Orthotic/Prosthetic Devices or Brace: No Gait Deviations General Gait Pattern Decreased Stride Length Factors Limiting Gait Function Factors Limiting Gait Function Decreased Activity Tolerance Decreased Strength Poor Balance Comments Gait Comments Pt using FWW safely with SBA- CGA. M5 PT-IP Objective Assessments Start: 01/27/18 12:45 Freq: NEEDED Status: Active Protocol: Document 01/27/18 14:17 LRN (Rec: 01/27/18 14:49 LRN [email or web address]) Orientation Orientation/Cognition Level of Alertness Alert Orientation Name Place Situation Language Function Ability No Deficits Noted Safety Awareness Understands Safety Issues Memory Description No Deficits Noted Gross Range of Motion Upper Extremity ROM Assessment Within Functional Limits Lower Extremity ROM Assessment Within Functional Limits Impairments Movement of RLE limited due to L lateral trunk pain. Strength Upper Extremity Strength Assessment Bilaterally Impaired Lower Extremity Strength Assessment Bilaterally Impaired Comments Strength Comments Strength impaired due to rib fracture and abdominal incision pain. M6 PT-IP Treatment Start: 01/27/18 12:45 Freq: NEEDED Status: Active Protocol: Document 02/03/18 15:50 SA (Rec: 02/03/18 16:03 [id number]) Physical Therapy Treatment Exercises Exercises Ankle Pumps Gluteal Sets Quad Sets Heel Slides Education Education Provided Precautions Safety Other Treatments Other Treatment Performed Sit to stands from chair, 3 reps with SBA and min cues. M7 PT-IP Assessment and Plan Start: 01/27/18 12:45 Freq: NEEDED Status: Active Protocol: Document 02/03/18 15:50 SA (Rec: 02/03/18 16:03 [id number]) PT Summary Assessment and Plan Potential Rehabilitation Potential Good Status of Condition at Evaluation Stable Summary Assessment Summary Pt demonstrates less fatigue today with activity. Frequency of Treatment Frequency Of Treatment Twice a Day Recommendations To Nursing Amount of Assist Needed 1 Person Assist Discharge Recommendations PT Discharge Recommendations SNF Rehab
--- NOTE | 2018-02-03 19:25 | P.PN_ITS ---
Subjective Date Patient Seen: 02/03/18 Time Patient Seen: 19:19 Interval history: FOLLOW UP ON SBO WITH ADHESIONS, AND ACUTE RENAL INSUFFICIENCY Patient seen at bedside. She is doing well. No overnight events. Diet advanced to regular and patient is tolerating well Exam Vital Signs (past 8 hours): - 02/03/18 11:45 02/03/18 16:42 02/03/18 16:46 Temperature 98.8 F 97.4 F L Pulse Rate 92 H 95 H Respiratory Rate 17 20 Blood Pressure 145/92 H 143/85 H Pulse Oximetry 96 97 97 Fraction of Inspired Oxygen 24 Oxygen Delivery Method Room Air Oxygen Flow Rate 0 Narrative Exam Narrative: Gen: NAD, AAOx3 HEENT: PERRLA BL. Neck: Supple CV: RRR, no murmurs Resp: Breath sounds heard in all pichardo, no wheezing GI: Vertical incision wound with steven. clean. Healing well MSK: Normal ROM Skin: NO bruising Objective Labs Result Diagrams: 02/03/18 05:15 02/03/18 05:15 Labs: Laboratory Results - last 24 hr 02/03/18 02/03/18 05:15 05:15 WBC 11.7 H RBC 3.02 L Hgb 8.9 L Hct 27.1 L MCV 89.8 D MCH 29.4 MCHC 32.8 RDW 17.5 H Plt Count 301 Neut % (Auto) 65.9 Lymph % (Auto) 20.5 L [place] % (Auto) 11.5 Eos % (Auto) 1.8 L Baso % (Auto) 0.3 Neut # (Auto) 7700 H Sodium 138 Potassium 4.8 Chloride 105 Carbon Dioxide 26 BUN 15 Creatinine 1.10 H Estimated GFR 48.3 L BUN/Creatinine Ratio 13.6 Glucose 115 H Calcium 9.0 Assessment & Plan Plan: Assessment/Plan Narrative: 1. Acute Kidney Injury: - Likely due to Dehydration, stabilizing - was likely due to dehydration and acute illness - now patient is back to normal diet. encourage hydration - continue to monitor renal function 2. SBO (small bowel obstruction): - S/p Exploratory Lap January 26 and adhesion lysis - Patient is postop day 8 Today - WBC stable - 2 view of Abdomen notes clearing of pneumoperitoneum - Advanced diet to regular, tolerating well 3. Postoperative anemia: - s/p 2U PRBC - Hb 8.9, stable - Continue to monitor and transfuse as needed 4. Hypertension: - BP stable - Continue Coreg scheduled and metoprolol IV PRN 5. Urinary tract infection: - Growing citrobacter - Continue bactrim DS 1 tab BID for 2 more days Time Spent evaluating and providing care for Patient 20 min Possible discharge back to [facility] tomorrow
[2018-02-03] MEDS: LATANOPROST 0.005% OPHTH 2.5 ML 1 DROPS EYE-BOTH (21:43)
[2018-02-03] MEDS: buPROPion SR 150 MG TAB PO (21:53)
[2018-02-03] MEDS: DULOXETINE 30 MG CAPSULE PO (21:59)
[2018-02-03] MEDS: SENNOSIDES 8.6 MG TABLET PO (21:59)
[2018-02-03] MEDS: PANTOPRAZOLE 40 MG TABLET PO (21:59)
[2018-02-04] VITALS (12 sets, daily range): BP systolic 100–111; BP diastolic 61–76; PULSE 78–93; RESP 16–18; TEMP 36.2–36.7; O2SAT 92–97
[2018-02-04] MEDS: OXYCODONE IR 5 MG TABLET PO ×3 (01:14→22:10)
[2018-02-04 05:50] LABS: Add Manual Diff / Slide Review NO; Basophils Percent Auto 0.6 % (0-2); Eosinophils Percent Auto 2.6 % (2-4); Hematocrit 26.4 % (36-46); Hemoglobin 8.8 g/dL (12.0-16.0); Lymphocytes Percent Auto 27.5 % (25-40); Mean Corpuscular HGB Conc 33.2 % (30-36); Mean Corpuscular Hemoglobin 29.7 PG (26-34); Mean Corpuscular Volume 89.5 fL (80-100); Monocytes Percent Auto 12.2 % (3-14); Neutrophils Absolute Auto 8000 /uL (3000-5900); Neutrophils Percent Auto 57.1 % (50-75); Platelet Count 342 X10^3/uL (150-400); Red Blood Cell Count 2.94 X10^6/uL (4.0-5.2); Red Cell Distribution Width 18.2 % (11.6-14.8); White Blood Cell Count 14.1 X10^3/uL (4.5-11.0)
[2018-02-04 05:57] LABS: BUN Creatinine Ratio 12.3 (6-22); Blood Urea Nitrogen 16 mg/dL (7-17); Calcium 8.8 mg/dL (8.4-10.2); Carbon Dioxide 23 mmol/L (22-32); Chloride 103 mmol/L (98-107); Estimated Glomerular Filt Rate 39.8 mL/min (>60); Glucose 109 mg/dL (80-110); HEMOLYSIS < 15 (0-50); Sodium 135 mmol/L (137-145)
[2018-02-04] MEDS: PANTOPRAZOLE 40 MG TABLET PO ×2 (07:01→21:04)
--- NOTE | 2018-02-04 08:57 | CM.DPC ---
Addendum entered by Jeannine Perez LPN 02/04/18 12:23: Dr. Poole reviewed case and was going to do the d/c but this was already in by Dr. Castaneda. RN coordinator Paramjit notes that the hosptitalist team is primary and surgeons are the consultants. Dr. Poole has now gone over the d/c orders, has written needed scripts and also signed the Medication List. She has written a progress note which does say pt will likely d/c tomorrow to the snf. She has also expressed concerns re pt's kidney function/labs. Has ordered a fluid bolus that YANA Mathis states will run for about 2 hours. Lab is ordered after this and with expectation that pt will then be ok to d/c to [facility] sometime later this afternoon. Initially [facility] had agreed to pick pt up at 1430 but once the addendum of the IV fluids and labs became part of the POC [facility] Ashley stated that she was no longer comfortable with the d/c today and, if pt remains stable for same she will accept pt tomorrow morning. Ashley does confirm that t repeat PASRR is not needed. Pt and her son Gumaro are updated. P: [facility] tomorrow, w/c van transport, likely in morning if pt medically stable for same. Original Note: DCP: continued: case again received and spoke with YANA Mathis. She confirms that pt is now on a general diet and doing well with same. She had a BM yesterday, large and completely liquid consistency. Spoke then with Dr. Castaneda re this. He notes this is to be expected at this point and will likely continue for a while. Ashley/[facility] confirms that they can accept pt back, she just wants to make sure her GI process is functioning well enough for the snf level care and that pt is tolerating diet now that she is off TPN. P: [facility] at d/c, likely today. Will follow.
[2018-02-04] MEDS: DULOXETINE 30 MG CAPSULE 60 MG PO (09:01)
[2018-02-04] MEDS: buPROPion SR 150 MG TAB PO ×2 (09:01→20:57)
[2018-02-04] MEDS: GABAPENTIN 300 MG CAPSULE PO ×2 (09:02→20:48)
[2018-02-04] MEDS: DOCUSATE 100 MG CAPSULE PO (09:02)
[2018-02-04] MEDS: SODIUM CHLORIDE 0.9% FLUSH 10 ML IV ×2 (09:02→20:57)
[2018-02-04] MEDS: CARVEDILOL 3.125 MG TABLET PO (09:02)
[2018-02-04] MEDS: TIMOLOL 0.25% OPHTH 1 DROPS EYE-BOTH ×2 (09:02→20:57)
[2018-02-04] MEDS: TRIMETH/SULFA 160/800 (DS) TABLET 1 TAB PO ×2 (09:03→20:58)
--- NOTE | 2018-02-04 10:21 | PM.DS.1 ---
History of Present Illness Date Patient Seen: 02/04/18 Time Patient Seen: 10:21 Chief complaint: L sided chest pain Narrative: 77 y/o female presented to ED with nausea, vomiting, and abdominal pain from [facility]. She has been unable to eat for the last 2 days because of the nausea. She felt chils but had no fever. She had a cough that was non productive. She denied any hemetemesis, bright red blood per rectum or melena. Patient has felt poorly and presented to the hospital for evaluation. Her right lower quadrant pain is dull, does not radiate is not worse with coughing and does not seem to improve with activity. She was evaulated in the Emergency Department with a Chest Xray/ ABD/ Pelvic CT which confirmed bibasilar infiltrates (have been present prior admission two weeks before) and a small bowel obstruction. The patient had her right kidney removed years ago. She also reported breathing more shallow since her rib fractures from her fall. Discharge Providers Date of admission: 01/24/18 17:48 Primary care physician: Maryanne Gaviria PA-C Consults: 01/24/18 17:39 Consult to General Surgery Stat Comment: Consulting Provider: Melanie Wheatley Reason for consultation: SBO Has provider been notified: Yes 01/26/18 13:15 Consult to Discharge Planning Routine Comment: Consult to Look Out Tower Fire Watcher Routine Comment: 01/27/18 08:06 Consult to PICC Line RN Routine Comment: picc line insertion please 01/27/18 08:08 Consult to Physical Therapy Evaluate & Treat Comment: Physician Instructions: Evaluate and Treat 01/29/18 11:18 Consult to Physical Therapy Evaluate & Treat Comment: do not ambulate today due to profound anemia. Physician Instructions: Evaluate and Treat 02/02/18 18:20 Consult to Discharge Planning Routine Comment: possible [facility] for PT/OT Discharge provider: Paula Poole MD Summary Discharge Diagnosis: Small Bowel Obstruction, s/p exploratory laparatomy and lysis of adhesions Pneumonia, resolved UTI, Resolving Exam Vital Signs (past 8 hours): - 02/04/18 04:30 02/04/18 07:50 Temperature 97.4 F L 98.0 F Pulse Rate 88 86 Respiratory Rate 16 18 Blood Pressure 111/72 111/76 Pulse Oximetry 96 93 Fraction of Inspired Oxygen 24 Oxygen Delivery Method Room Air Oxygen Flow Rate 0 Narrative Exam Narrative: Gen: NAD, AAOx3 HEENT: PERRLA BL, EOMI BL Neck: Supple, no LAD or JVD CV: RRR, no murmurs or gallops Resp: Breath sounds heard in all pichardo, no wheezing GI: Vertical incision wound with steven. clean. Healing well MSK: Normal ROM Psych: Appropriate mood, able to make her own decisions Neuro: NFD, CN II-XII intact Skin: NO bruising or lesions neted Objective Labs Result Diagrams: 02/04/18 05:20 02/04/18 05:20 Labs: Laboratory Results - last 24 hr 02/04/18 02/04/18 05:20 05:20 WBC 14.1 H RBC 2.94 L Hgb 8.8 L Hct 26.4 L MCV 89.5 MCH 29.7 MCHC 33.2 RDW 18.2 H Plt Count 342 Neut % (Auto) 57.1 Lymph % (Auto) 27.5 [place] % (Auto) 12.2 Eos % (Auto) 2.6 Baso % (Auto) 0.6 Neut # (Auto) 8000 H Sodium 135 L Potassium 5.0 Chloride 103 Carbon Dioxide 23 BUN 16 Creatinine 1.30 H Estimated GFR 39.8 L BUN/Creatinine Ratio 12.3 Glucose 109 Calcium 8.8 Discharge Plan Discharge Plan Patient Disposition: SNF Transfer to: [facility] Under care of provider: Joel Castaneda MD Transportation: Wheelchair Consult as needed: Dental, Hearing, Mental health, Podiatry and Vision I certify the postop hospital retirement care is medically necessary on a continuing basis for any conditions for which he/ she received care during this hospitalization.: Yes The receiving facility has agreed to accept transfer and provide medical treatment.: Yes Discharge Med Rec/Prescriptions Prescriptions: New sulfamethoxazole-trimethoprim 800-160 mg Tablet 1 tab PO BID Qty: 2 RF: 0 pantoprazole 40 mg Tablet,Delayed Release (Dr/Ec) 40 mg PO 0700,2100 Qty: 60 RF: 0 gabapentin [Neurontin] 300 mg Capsule 300 mg PO BID Qty: 40 RF: 0 oxycodone 5 mg tablet 10 mg PO Q4-6H PRN (Reason: pain) Qty: 40 RF: 0 Continue spironolactone 25 MG tablet 12.5 mg PO QDAY Qty: 0 RF: 0 simvastatin 20 MG tablet 20 mg PO HS Qty: 0 RF: 0 cholecalciferol (vitamin D3) [Vitamin D3] 2,000 UNIT tablet 1 tab PO QDAY Qty: 0 RF: 0 omega 7-bqz-hny-fish oil [Omera] 1 EACH capsule 1,200 mg PO QDAY Qty: 0 RF: 0 carvedilol [Coreg] 3.125 MG tablet 3.125 mg PO BID Qty: 0 RF: 0 ocpxiwu-chcpabmllxkrn-elkwqyel [Excedrin Extra Strength] 1 EACH tablet 2 tab PO Q6HP PRN (Reason: Pain, Moderate) Qty: 0 RF: 0 timolol maleate 0.5 % drops 1 drp OPHTH BID Qty: 0 RF: 0 latanoprost [Xalatan] 0.005 % drops 1 drp OPHTH HS Qty: 0 RF: 0 cetirizine 10 mg Tablet 10 mg PO DAILY RF: 0 zonisamide 100 mg Capsule 100 mg PO QPM RF: 0 duloxetine 30 mg Capsule,Delayed Release(Dr/Ec) 30 mg PO QPM RF: 0 bupropion HCl 150 mg Tablet Extended Release 12 Hr 150 mg PO BID RF: 0 aspirin 81 mg Tablet,Delayed Release (Dr/Ec) 81 mg PO DAILY RF: 0 magnesium hydroxide [Milk of Magnesia] 400 mg/5 mL Suspension 30 ml PO PRN PRN (Reason: Constipation) RF: 0 bisacodyl 10 mg Suppository 1 supp FL PRN PRN (Reason: Constipation) RF: 0 sodium phosphates [Fleet Enema] 19-7 gram/118 mL Enema 1 supp FL PRN PRN (Reason: Constipation) RF: 0 bisacodyl 5 mg Tablet 1 - 2 tab PO PRN PRN (Reason: mild to severe constipation) RF: 0 duloxetine 60 mg Capsule,Delayed Release(Dr/Ec) 60 mg PO QAM RF: 0 melatonin 10 mg Tablet 10 mg PO BEDTIME PRN (Reason: Sleep) RF: 0 erenumab-aooe [Aimovig Autoinjector] 70 mg/mL auto-injector 70 mg SUBCUT QMONTH Qty: 1 RF: 0 Discontinued omeprazole 20 mg Capsule,Delayed Release(Dr/Ec) 20 mg PO BID RF: 0 ondansetron HCl [Zofran] 4 mg Tablet 4 mg PO Q6H PRN (Reason: Nausea) RF: 0 hydrocodone-acetaminophen 5-325 mg tablet 2 tab PO Q4HR MDD 3000 mg PRN (Reason: Pain, Severe) RF: 0 Follow up/Referrals: Joel Castaneda MD [Physician] - 02/07/18 3:30 pm Discharge Health Status Brief summary of current health status: Small-bowel obstruction resolved after surgery. Bowel function now returned to baseline. Tolerating regular diet. Requires significant physical therapy and occupational therapy as well as wound monitoring for rehabilitation in retirement facility. Multidrug resistant organism: No MDRO Provider Discharge Instructions Diet: Diet as Tolerated Liquid consistency: Normal/Thin Food texture: Regular Activity: No lifting more than 20 lb for 2 more weeks May ambulate as desired May shower Do not soak incision in bathtub or pool for 2 weeks Cold/Heat Therapy: May apply ice packs or heating pad to incision as needed for comfort Skin/Wound/Dressing Care Report to your healthcare provider any signs of infection, such as:: chills, fever, increased pain and unusual drainage Dressing: Leave incision open to air [facility] Reason for rehabilitation: Recovery r/t decondition Rehab type: Physical therapy and Occupational therapy Restrictions to mobility: None except lifting restriction as above Discharge Data Primary Care Provider: Maryanne Gaviria Attending Provider: Roz Young Admit Date/Time: 01/24/18 17:48
--- NOTE | 2018-02-04 10:23 | P.DS_ITS ---
History of Present Illness Date Patient Seen: 02/04/18 Time Patient Seen: 10:21 Chief complaint: L sided chest pain Narrative: 77-year-old female who presented with abdominal pain and distention. She had nausea vomiting. Examination and evaluation were consistent with small-bowel obstruction. She was admitted for IV fluid resuscitation and nasogastric tube decompression. She did not improve. She therefore required laparotomy. Discharge Providers Date of admission: 01/24/18 17:48 Primary care physician: Maryanne Gaviria PA-C Consults: 01/24/18 17:39 Consult to General Surgery Stat Comment: Consulting Provider: Melanie Wheatley Reason for consultation: SBO Has provider been notified: Yes 01/26/18 13:15 Consult to Discharge Planning Routine Comment: Consult to Channeler Insole Routine Comment: 01/27/18 08:06 Consult to PICC Line RN Routine Comment: picc line insertion please 01/27/18 08:08 Consult to Physical Therapy Evaluate & Treat Comment: Physician Instructions: Evaluate and Treat 01/29/18 11:18 Consult to Physical Therapy Evaluate & Treat Comment: do not ambulate today due to profound anemia. Physician Instructions: Evaluate and Treat 02/02/18 18:20 Consult to Discharge Planning Routine Comment: possible 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, unilateral (Acute) Small bowel obstruction, partial (Acute) Age-related osteoporosis without current pathological fracture (Chronic) Aortic aneurysm of unspecified site, without rupture (Chronic) Chronic pain syndrome (Chronic) Essential (primary) hypertension (Chronic) GERD (gastroesophageal reflux disease) (Chronic) Headache (Chronic) Heart failure (Chronic) Hyperglycemia (Chronic) Hyperlipidemia (Chronic) Insomnia (Chronic) Major depressive disorder, recurrent, moderate (Chronic) Mixed hyperlipidemia (Chronic) 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 She tolerated these well. Postoperatively she was admitted to the intensive care unit then transferred to the regular surgical floor. She was monitored in the intensive care unit due to pneumonia. She remained stable was transferred back to the regular floor. While there she remained afebrile and hemodynamically stable. She did have some bleeding from her incision which required several stitches with subsequent resolution. Wound is otherwise healing without evidence of infection or other complications. She had progressive postoperative anemia, however, which possibly was related to gastrointestinal hemorrhage. Nevertheless there was no identifiable obvious bleeding source. Transfusion was required to which she responded well and her hemoglobin is stable at the time of discharge. She had postoperative ileus as anticipated which subsequently resolved spontaneously. By discharge she has had return of spontaneous bowel bladder function without issue. She is also tolerating a regular diet. She did have some dysuria with evidence of urinary tract infection as above. This responded nicely to antibiotics. She is ambulating with assistance. She requires physical therapy and occupational therapy. Because of her anemia, relative debilitation, protein malnutrition as above, and need for physical therapy she is transferred to residential facility. She is to follow up in surgery Clinic next week. However, they understand to have her return for fever, chills, progressive pain, inability to tolerated diet , or wound drainage. Status at Discharge Cognitive/behavioral status at discharge: Alert, oriented x3 Functional status at discharge: uses cane/walker Overall status at discharge: patient is progressing back to baseline Time Spent with Patient Less than 30 minutes Exam Vital Signs (past 8 hours): - 02/04/18 04:30 02/04/18 07:50 Temperature 97.4 F L 98.0 F Pulse Rate 88 86 Respiratory Rate 16 18 Blood Pressure 111/72 111/76 Pulse Oximetry 96 93 Fraction of Inspired Oxygen 24 Oxygen Delivery Method Room Air Oxygen Flow Rate 0 Narrative Exam Narrative: Well-nourished well-developed elderly female in no acute distress. Alert oriented x3 Chest clear to auscultation without wheezes Regular rate rhythm Abdomen soft and nondistended. She is appropriately tender to palpation without guarding or rebound. Wound is clean, dry, and intact without erythema or drainage. Minimal ecchymosis at the inferior aspect of the wound is noted. Extremities show no clubbing, cyanosis, or edema Objective Labs Result Diagrams: 02/04/18 05:20 02/04/18 05:20 Labs: Laboratory Results - last 24 hr 02/04/18 02/04/18 05:20 05:20 WBC 14.1 H RBC 2.94 L Hgb 8.8 L Hct 26.4 L MCV 89.5 MCH 29.7 MCHC 33.2 RDW 18.2 H Plt Count 342 Neut % (Auto) 57.1 Lymph % (Auto) 27.5 Owen % (Auto) 12.2 Eos % (Auto) 2.6 Baso % (Auto) 0.6 Neut # (Auto) 8000 H Sodium 135 L Potassium 5.0 Chloride 103 Carbon Dioxide 23 BUN 16 Creatinine 1.30 H Estimated GFR 39.8 L BUN/Creatinine Ratio 12.3 Glucose 109 Calcium 8.8 Discharge Plan Discharge Plan Patient Disposition: SNF Transfer to: [facility] Under care of provider: Joel Castaneda MD Transportation: Wheelchair Consult as needed: Dental, Hearing, Mental health, Podiatry and Vision I certify the postop hospital residential care is medically necessary on a continuing basis for any conditions for which he/ she received care during this hospitalization.: Yes The receiving facility has agreed to accept transfer and provide medical treatment.: Yes Discharge Med Rec/Prescriptions Prescriptions: New oxycodone 5 mg tablet 10 mg PO Q4-6H PRN (Reason: pain) Qty: 40 RF: 0 sulfamethoxazole-trimethoprim [Bactrim DS] 800-160 mg tablet 1 tab PO BID Qty: 3 RF: 0 pantoprazole 40 mg tablet,delayed release (DR/EC) 40 mg PO BID Qty: 60 RF: 0 gabapentin 300 mg capsule 300 mg PO BID Qty: 60 RF: 0 oxycodone 10 mg tablet 10 mg PO Q4-6H PRN (Reason: pain) Qty: 20 RF: 0 Continue spironolactone 25 MG tablet 12.5 mg PO QDAY Qty: 0 RF: 0 simvastatin 20 MG tablet 20 mg PO HS Qty: 0 RF: 0 cholecalciferol (vitamin D3) [Vitamin D3] 2,000 UNIT tablet 1 tab PO QDAY Qty: 0 RF: 0 omega 8-onw-mmm-fish oil [Omera] 1 EACH capsule 1,200 mg PO QDAY Qty: 0 RF: 0 carvedilol [Coreg] 3.125 MG tablet 3.125 mg PO BID Qty: 0 RF: 0 yxzdmvs-fmzjmjdlqivhk-serruanu [Excedrin Extra Strength] 1 EACH tablet 2 tab PO Q6HP PRN (Reason: Pain, Moderate) Qty: 0 RF: 0 timolol maleate 0.5 % drops 1 drp OPHTH BID Qty: 0 RF: 0 latanoprost [Xalatan] 0.005 % drops 1 drp OPHTH HS Qty: 0 RF: 0 cetirizine 10 mg Tablet 10 mg PO DAILY RF: 0 zonisamide 100 mg Capsule 100 mg PO QPM RF: 0 duloxetine 30 mg Capsule,Delayed Release(Dr/Ec) 30 mg PO QPM RF: 0 bupropion HCl 150 mg Tablet Extended Release 12 Hr 150 mg PO BID RF: 0 aspirin 81 mg Tablet,Delayed Release (Dr/Ec) 81 mg PO DAILY RF: 0 magnesium hydroxide [Milk of Magnesia] 400 mg/5 mL Suspension 30 ml PO PRN PRN (Reason: Constipation) RF: 0 bisacodyl 10 mg Suppository 1 supp [place] PRN PRN (Reason: Constipation) RF: 0 sodium phosphates [Fleet Enema] 19-7 gram/118 mL Enema 1 supp TN PRN PRN (Reason: Constipation) RF: 0 bisacodyl 5 mg Tablet 1 - 2 tab PO PRN PRN (Reason: mild to severe constipation) RF: 0 duloxetine 60 mg Capsule,Delayed Release(Dr/Ec) 60 mg PO QAM RF: 0 melatonin 10 mg Tablet 10 mg PO BEDTIME PRN (Reason: Sleep) RF: 0 erenumab-aooe [Aimovig Autoinjector] 70 mg/mL auto-injector 70 mg SUBCUT QMONTH Qty: 1 RF: 0 Discontinued omeprazole 20 mg Capsule,Delayed Release(Dr/Ec) 20 mg PO BID RF: 0 ondansetron HCl [Zofran] 4 mg Tablet 4 mg PO Q6H PRN (Reason: Nausea) RF: 0 hydrocodone-acetaminophen 5-325 mg tablet 2 tab PO Q4HR MDD 3000 mg PRN (Reason: Pain, Severe) RF: 0 Follow up/Referrals: Maryanne Gaviria PA-C [Primary Care Provider] - Joel Castaneda MD [Physician] - 02/07/18 3:30 pm Discharge Health Status Brief summary of current health status: Small-bowel obstruction resolved after surgery. Bowel function now returned to baseline. Tolerating regular diet. Requires significant physical therapy and occupational therapy as well as wound monitoring for rehabilitation in residential facility. Multidrug resistant organism: No MDRO Provider Discharge Instructions Diet: Diet as Tolerated Liquid consistency: Normal/Thin Food texture: Regular Activity: No lifting more than 20 lb for 2 more weeks May ambulate as desired May shower Do not soak incision in bathtub or pool for 2 weeks Cold/Heat Therapy: May apply ice packs or heating pad to incision as needed for comfort Skin/Wound/Dressing Care Report to your healthcare provider any signs of infection, such as:: chills, fever, increased pain and unusual drainage Dressing: Leave incision open to air Special Rehabilitation Services Reason for rehabilitation: Recovery r/t decondition Rehab type: Physical therapy and Occupational therapy Restrictions to mobility: None except lifting restriction as above Discharge Data Primary Care Provider: Maryanne Gaviria Attending Provider: Roz Young Admirma Date/Time: 01/24/18 17:48
--- NOTE | 2018-02-04 10:26 | P.DS_ITS ---
History of Present Illness Date Patient Seen: 02/04/18 Time Patient Seen: 10:21 Chief complaint: L sided chest pain Narrative: 77 y/o female presented to ED with nausea, vomiting, and abdominal pain from [facility]. She has been unable to eat for the last 2 days because of the nausea. She felt chils but had no fever. She had a cough that was non productive. She denied any hemetemesis, bright red blood per rectum or melena. Patient has felt poorly and presented to the hospital for evaluation. Her right lower quadrant pain is dull, does not radiate is not worse with coughing and does not seem to improve with activity. She was evaulated in the Emergency Department with a Chest Xray/ ABD/ Pelvic CT which confirmed bibasilar infiltrates (have been present prior admission two weeks before) and a small bowel obstruction. The patient had her right kidney removed years ago. She also reported breathing more shallow since her rib fractures from her fall. Discharge Providers Date of admission: 01/24/18 17:48 Primary care physician: Maryanne Gaviria PA-C Consults: 01/24/18 17:39 Consult to General Surgery Stat Comment: Consulting Provider: Melanie Wheatley Reason for consultation: SBO Has provider been notified: Yes 01/26/18 13:15 Consult to Discharge Planning Routine Comment: Consult to Machine Farmworker Routine Comment: 01/27/18 08:06 Consult to PICC Line RN Routine Comment: picc line insertion please 01/27/18 08:08 Consult to Physical Therapy Evaluate & Treat Comment: Physician Instructions: Evaluate and Treat 01/29/18 11:18 Consult to Physical Therapy Evaluate & Treat Comment: do not ambulate today due to profound anemia. Physician Instructions: Evaluate and Treat 02/02/18 18:20 Consult to Discharge Planning Routine Comment: possible [facility] for PT/OT Discharge provider: Paula Poole MD Summary Discharge Diagnosis: Small Bowel Obstruction, s/p exploratory laparatomy and lysis of adhesions Pneumonia, resolved UTI, Resolving Exam Vital Signs (past 8 hours): - 02/04/18 04:30 02/04/18 07:50 Temperature 97.4 F L 98.0 F Pulse Rate 88 86 Respiratory Rate 16 18 Blood Pressure 111/72 111/76 Pulse Oximetry 96 93 Fraction of Inspired Oxygen 24 Oxygen Delivery Method Room Air Oxygen Flow Rate 0 Narrative Exam Narrative: Gen: NAD, AAOx3 HEENT: PERRLA BL, EOMI BL Neck: Supple, no LAD or JVD CV: RRR, no murmurs or gallops Resp: Breath sounds heard in all pichardo, no wheezing GI: Vertical incision wound with steven. clean. Healing well MSK: Normal ROM Psych: Appropriate mood, able to make her own decisions Neuro: NFD, CN II-XII intact Skin: NO bruising or lesions neted Objective Labs Result Diagrams: 02/04/18 05:20 02/04/18 05:20 Labs: Laboratory Results - last 24 hr 02/04/18 02/04/18 05:20 05:20 WBC 14.1 H RBC 2.94 L Hgb 8.8 L Hct 26.4 L MCV 89.5 MCH 29.7 MCHC 33.2 RDW 18.2 H Plt Count 342 Neut % (Auto) 57.1 Lymph % (Auto) 27.5 Gaston % (Auto) 12.2 Eos % (Auto) 2.6 Baso % (Auto) 0.6 Neut # (Auto) 8000 H Sodium 135 L Potassium 5.0 Chloride 103 Carbon Dioxide 23 BUN 16 Creatinine 1.30 H Estimated GFR 39.8 L BUN/Creatinine Ratio 12.3 Glucose 109 Calcium 8.8 Discharge Plan Discharge Plan Patient Disposition: SNF Transfer to: [facility] Under care of provider: Joel Castaneda MD Transportation: Wheelchair Consult as needed: Dental, Hearing, Mental health, Podiatry and Vision I certify the postop hospital prison care is medically necessary on a continuing basis for any conditions for which he/ she received care during this hospitalization.: Yes The receiving facility has agreed to accept transfer and provide medical treatment.: Yes Discharge Med Rec/Prescriptions Prescriptions: New sulfamethoxazole-trimethoprim 800-160 mg Tablet 1 tab PO BID Qty: 2 RF: 0 pantoprazole 40 mg Tablet,Delayed Release (Dr/Ec) 40 mg PO 0700,2100 Qty: 60 RF: 0 gabapentin [Neurontin] 300 mg Capsule 300 mg PO BID Qty: 40 RF: 0 oxycodone 5 mg tablet 10 mg PO Q4-6H PRN (Reason: pain) Qty: 40 RF: 0 Continue spironolactone 25 MG tablet 12.5 mg PO QDAY Qty: 0 RF: 0 simvastatin 20 MG tablet 20 mg PO HS Qty: 0 RF: 0 cholecalciferol (vitamin D3) [Vitamin D3] 2,000 UNIT tablet 1 tab PO QDAY Qty: 0 RF: 0 omega 3-wrp-cqz-fish oil [Omera] 1 EACH capsule 1,200 mg PO QDAY Qty: 0 RF: 0 carvedilol [Coreg] 3.125 MG tablet 3.125 mg PO BID Qty: 0 RF: 0 sktlvqv-vngkcvhftsuex-fehxkmgo [Excedrin Extra Strength] 1 EACH tablet 2 tab PO Q6HP PRN (Reason: Pain, Moderate) Qty: 0 RF: 0 timolol maleate 0.5 % drops 1 drp OPHTH BID Qty: 0 RF: 0 latanoprost [Xalatan] 0.005 % drops 1 drp OPHTH HS Qty: 0 RF: 0 cetirizine 10 mg Tablet 10 mg PO DAILY RF: 0 zonisamide 100 mg Capsule 100 mg PO QPM RF: 0 duloxetine 30 mg Capsule,Delayed Release(Dr/Ec) 30 mg PO QPM RF: 0 bupropion HCl 150 mg Tablet Extended Release 12 Hr 150 mg PO BID RF: 0 aspirin 81 mg Tablet,Delayed Release (Dr/Ec) 81 mg PO DAILY RF: 0 magnesium hydroxide [Milk of Magnesia] 400 mg/5 mL Suspension 30 ml PO PRN PRN (Reason: Constipation) RF: 0 bisacodyl 10 mg Suppository 1 supp [place] PRN PRN (Reason: Constipation) RF: 0 sodium phosphates [Fleet Enema] 19-7 gram/118 mL Enema 1 supp [place] PRN PRN (Reason: Constipation) RF: 0 bisacodyl 5 mg Tablet 1 - 2 tab PO PRN PRN (Reason: mild to severe constipation) RF: 0 duloxetine 60 mg Capsule,Delayed Release(Dr/Ec) 60 mg PO QAM RF: 0 melatonin 10 mg Tablet 10 mg PO BEDTIME PRN (Reason: Sleep) RF: 0 erenumab-aooe [Aimovig Autoinjector] 70 mg/mL auto-injector 70 mg SUBCUT QMONTH Qty: 1 RF: 0 Discontinued omeprazole 20 mg Capsule,Delayed Release(Dr/Ec) 20 mg PO BID RF: 0 ondansetron HCl [Zofran] 4 mg Tablet 4 mg PO Q6H PRN (Reason: Nausea) RF: 0 hydrocodone-acetaminophen 5-325 mg tablet 2 tab PO Q4HR MDD 3000 mg PRN (Reason: Pain, Severe) RF: 0 Follow up/Referrals: Joel Castaneda MD [Physician] - 02/07/18 3:30 pm Discharge Health Status Brief summary of current health status: Small-bowel obstruction resolved after surgery. Bowel function now returned to baseline. Tolerating regular diet. Requires significant physical therapy and occupational therapy as well as wound monitoring for rehabilitation in prison facility. Multidrug resistant organism: No MDRO Provider Discharge Instructions Diet: Diet as Tolerated Liquid consistency: Normal/Thin Food texture: Regular Activity: No lifting more than 20 lb for 2 more weeks May ambulate as desired May shower Do not soak incision in bathtub or pool for 2 weeks Cold/Heat Therapy: May apply ice packs or heating pad to incision as needed for comfort Skin/Wound/Dressing Care Report to your healthcare provider any signs of infection, such as:: chills, fever, increased pain and unusual drainage Dressing: Leave incision open to air Special Rehabilitation Services Reason for rehabilitation: Recovery r/t decondition Rehab type: Physical therapy and Occupational therapy Restrictions to mobility: None except lifting restriction as above Discharge Data Primary Care Provider: Maryanne Gaviria Attending Provider: Roz Young Admit Date/Time: 01/24/18 17:48
--- NOTE | 2018-02-04 10:44 | P.PN_ITS ---
Subjective Date Patient Seen: 02/04/18 Time Patient Seen: 10:40 Interval history: FOLLOW UP ON SBO WITH ADHESIONS, ACUTE RENAL INSUFFICIENCY, UTI Patient seen at bedside. She is doing well. No overnight events. Diet advanced to regular and patient is tolerating well. Having loose bowel movements. Exam Vital Signs (past 8 hours): - 02/04/18 04:30 02/04/18 07:50 Temperature 97.4 F L 98.0 F Pulse Rate 88 86 Respiratory Rate 16 18 Blood Pressure 111/72 111/76 Pulse Oximetry 96 93 Fraction of Inspired Oxygen 24 Oxygen Delivery Method Room Air Oxygen Flow Rate 0 Narrative Exam Narrative: Gen: NAD, AAOx3 HEENT: PERRLA BL. Neck: Supple CV: RRR, no murmurs Resp: Breath sounds heard in all pichardo, no wheezing GI: Vertical incision wound with steven. clean. Healing well MSK: Normal ROM Skin: NO bruising Objective Labs Result Diagrams: 02/04/18 05:20 02/04/18 05:20 Labs: Laboratory Results - last 24 hr 02/04/18 02/04/18 05:20 05:20 WBC 14.1 H RBC 2.94 L Hgb 8.8 L Hct 26.4 L MCV 89.5 MCH 29.7 MCHC 33.2 RDW 18.2 H Plt Count 342 Neut % (Auto) 57.1 Lymph % (Auto) 27.5 Yates % (Auto) 12.2 Eos % (Auto) 2.6 Baso % (Auto) 0.6 Neut # (Auto) 8000 H Sodium 135 L Potassium 5.0 Chloride 103 Carbon Dioxide 23 BUN 16 Creatinine 1.30 H Estimated GFR 39.8 L BUN/Creatinine Ratio 12.3 Glucose 109 Calcium 8.8 Assessment & Plan Plan: Assessment/Plan Narrative: 1. Acute Kidney Injury: - Likely due to Dehydration, slightly worsened than yesterday - Will give 1L bolus at this time - repeat BMP after bolus, and if improving, proceed with discharge 2. SBO (small bowel obstruction): - S/p Exploratory Lap January 26 and adhesion lysis - Patient is postop day 9 Today - WBC stable - 2 view of Abdomen notes clearing of pneumoperitoneum - Advanced diet to regular, tolerating well - Oxycodone for pain control 3. Postoperative anemia: - s/p 2U PRBC - Hb 8.8, stable - Continue to monitor and transfuse as needed 4. Hypertension: - BP stable - Continue Coreg scheduled and metoprolol IV PRN 5. Urinary tract infection: - Growing citrobacter - Continue bactrim DS 1 tab BID for 1 more day after today Time Spent evaluating and providing care for Patient 20 min Possible discharge back to [facility] tomorrow
[2018-02-04] MEDS: SODIUM CHLORIDE 0.9% 1,000 ML 500 ML IV (11:00)
--- NOTE | 2018-02-04 11:10 | PT.IPTN ---
Current Diagnoses Hypokalemia (01/24/18) Essential (primary) hypertension (01/24/18) Lobar pneumonia, unspecified organism (01/24/18) Unspecified intestinal obstruction, unspecified as to partial versus complete obstruction (01/24/18) Age-related osteoporosis without current pathological fracture (01/24/18) Disorder of kidney and ureter, unspecified (01/24/18) Urinary tract infection, site not specified (01/24/18) Multiple fractures of ribs, left side, initial encounter for closed fracture (01/24/18) Acquired absence of kidney (01/24/18) Other specified postprocedural states (01/24/18) Surgery Performed Operation Date: 01/26/18 14:30 Actual Procedures p Exploratory Laparotomy GEN - Joel Castaneda MD Physical Therapy Treatment Note M2 PT-IP Current Condition Start: 01/27/18 12:45 Freq: NEEDED Status: Active Protocol: Document 01/31/18 09:30 AMB (Rec: 01/31/18 09:34 AMB [id number]) Physical Therapy Current Condition Current Condition Evaluation Date 01/27/18 Treatment Diagnosis 01/24/18: L sided Chest Pain SBO Onset Date 01/24/18 Precautions Abdominal Surgery Precautions Log Roll Lifting Restrictions Other Precautions Gait belt high on chest due to PICC line and abdominal incision. M3 PT-IP Subjective Start: 01/27/18 12:45 Freq: NEEDED Status: Active Protocol: Document 02/04/18 11:10 GGD (Rec: 02/04/18 14:16 GGD [email or web address]) Subjective Physical Therapy Visit Type Type Treatment Note Visit Start Time 10:50 Visit Stop Time 11:10 Total Visit Minutes 20 Number of TOURIST AGENT Visits 4 Physical Therapy Visit Comments Patient Comments Pt states she needs to use the bathroom. Therapy Pain Assessment Pain When Pain Assessed During Mobility Pain Present Pain Present Pain Reported Location Abdomen Intensity 6 Scale Used Numeric (1 - 10) M4 PT-IP Mobility and Gait Start: 01/27/18 12:45 Freq: NEEDED Status: Active Protocol: Document 02/04/18 11:10 GGD (Rec: 02/04/18 14:16 GGD [email or web address]) PT-Bed Mobility Assessment Supine to Sit Supine to Sit Contact Guard Assistance Bedrails Scooting Scooting to Edge of Bed Standby Assistance PT-Transfer Assessment Sit to and From Stand Sit to and from Stand Standby Assistance Equipment Transfer Assistive Device Gait Belt Front Wheeled Walker Orthotic/Prosthetic Devices or Brace: Yes Transfers Transfer Destination Chair Bedside Commode Transfer Ability Level of Assist Standby Assistance Gait Assessment Gait Gait Assistance Required: Contact Guard Assist Distance (Feet) 50 Able to Maintain Weight Bearing Status Yes During Gait Assistive Devices Assistive Device Gait Belt Front Wheeled Walker Orthotic/Prosthetic Devices or Brace: No Gait Deviations General Gait Pattern Decreased Stride Length Decreased Feet Clearance Factors Limiting Gait Function Factors Limiting Gait Function Decreased Activity Tolerance Decreased Strength Poor Balance M5 PT-IP Objective Assessments Start: 01/27/18 12:45 Freq: NEEDED Status: Active Protocol: Document 01/27/18 14:17 LRN (Rec: 01/27/18 14:49 LRN [id number]) Orientation Orientation/Cognition Level of Alertness Alert Orientation Name Place Situation Language Function Ability No Deficits Noted Safety Awareness Understands Safety Issues Memory Description No Deficits Noted Gross Range of Motion Upper Extremity ROM Assessment Within Functional Limits Lower Extremity ROM Assessment Within Functional Limits Impairments Movement of RLE limited due to L lateral trunk pain. Strength Upper Extremity Strength Assessment Bilaterally Impaired Lower Extremity Strength Assessment Bilaterally Impaired Comments Strength Comments Strength impaired due to rib fracture and abdominal incision pain. M6 PT-IP Treatment Start: 01/27/18 12:45 Freq: NEEDED Status: Active Protocol: Document 02/03/18 15:50 SA (Rec: 02/03/18 16:03 SA [id number]) Physical Therapy Treatment Exercises Exercises Ankle Pumps Gluteal Sets Quad Sets Heel Slides Education Education Provided Precautions Safety Other Treatments Other Treatment Performed Sit to stands from chair, 3 reps with SBA and min cues. M7 PT-IP Assessment and Plan Start: 01/27/18 12:45 Freq: NEEDED Status: Active Protocol: Document 02/04/18 11:10 GGD (Rec: 02/04/18 14:16 GGD [email or web address]) PT Summary Assessment and Plan Summary Assessment Summary Pt had increase in pain that limit her tolerance to gait. She did have mild unsteadiness with transfer to [facility]. Frequency of Treatment Frequency Of Treatment Twice a Day Recommendations To Nursing Amount of Assist Needed 1 Person Assist Discharge Recommendations PT Discharge Recommendations SNF Rehab
--- NOTE | 2018-02-04 12:39 | CM.DPC ---
D/C summary, signed med list, order, RX, etc all faxed to [facility] per Jeannine
[2018-02-04] MEDS: OXYCODONE IR 10 MG TABLET PO (12:45)
--- NOTE | 2018-02-04 14:00 | PT.IPTN ---
Current Diagnoses Hypokalemia (01/24/18) Essential (primary) hypertension (01/24/18) Lobar pneumonia, unspecified organism (01/24/18) Unspecified intestinal obstruction, unspecified as to partial versus complete obstruction (01/24/18) Age-related osteoporosis without current pathological fracture (01/24/18) Disorder of kidney and ureter, unspecified (01/24/18) Urinary tract infection, site not specified (01/24/18) Multiple fractures of ribs, left side, initial encounter for closed fracture (01/24/18) Acquired absence of kidney (01/24/18) Other specified postprocedural states (01/24/18) Surgery Performed Operation Date: 01/26/18 14:30 Actual Procedures p Exploratory Laparotomy GEN - Joel Castaneda MD Physical Therapy Treatment Note M2 PT-IP Current Condition Start: 01/27/18 12:45 Freq: NEEDED Status: Active Protocol: Document 01/31/18 09:30 AMB (Rec: 01/31/18 09:34 AMB [id number]) Physical Therapy Current Condition Current Condition Evaluation Date 01/27/18 Treatment Diagnosis 01/24/18: L sided Chest Pain SBO Onset Date 01/24/18 Precautions Abdominal Surgery Precautions Log Roll Lifting Restrictions Other Precautions Gait belt high on chest due to PICC line and abdominal incision. 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 Therapy Pain Assessment Pain When Pain Assessed At Rest Pain Present Pain Present Pain Reported Location Abdomen Intensity 5 Scale Used Numeric (1 - 10) M4 PT-IP Mobility and Gait Start: 01/27/18 12:45 Freq: NEEDED Status: Active Protocol: Document 02/04/18 14:00 GGD (Rec: 02/04/18 14:23 GGD [id number]) PT-Transfer Assessment Sit to and From Stand Sit to and from Stand Standby Assistance Equipment Transfer Assistive Device Gait Belt Front Wheeled Walker Orthotic/Prosthetic Devices or Brace: Yes Transfers Transfer Destination Chair Transfer Ability Level of Assist Standby Assistance Gait Assessment Gait Gait Assistance Required: Contact Guard Assist Distance (Feet) 60 Able to Maintain Weight Bearing Status Yes During Gait Assistive Devices Assistive Device Gait Belt Front Wheeled Walker Orthotic/Prosthetic Devices or Brace: No Gait Deviations General Gait Pattern Decreased Stride Length Decreased Feet Clearance Factors Limiting Gait Function Factors Limiting Gait Function Decreased Activity Tolerance Decreased Strength Poor Balance Comments Gait Comments Transfer to chair with ENGAGEMENT MANAGER in room to assist with shower. M5 PT-IP Objective Assessments Start: 01/27/18 12:45 Freq: NEEDED Status: Active Protocol: Document 01/27/18 14:17 LRN (Rec: 01/27/18 14:49 LRN [id number]) Orientation Orientation/Cognition Level of Alertness Alert Orientation Name Place Situation Language Function Ability No Deficits Noted Safety Awareness Understands Safety Issues Memory Description No Deficits Noted Gross Range of Motion Upper Extremity ROM Assessment Within Functional Limits Lower Extremity ROM Assessment Within Functional Limits Impairments Movement of RLE limited due to L lateral trunk pain. Strength Upper Extremity Strength Assessment Bilaterally Impaired Lower Extremity Strength Assessment Bilaterally Impaired Comments Strength Comments Strength impaired due to rib fracture and abdominal incision pain. M6 PT-IP Treatment Start: 01/27/18 12:45 Freq: NEEDED Status: Active Protocol: Document 02/03/18 15:50 SA (Rec: 02/03/18 16:03 SA [id number]) Physical Therapy Treatment Exercises Exercises Ankle Pumps Gluteal Sets Quad Sets Heel Slides Education Education Provided Precautions Safety Other Treatments Other Treatment Performed Sit to stands from chair, 3 reps with SBA and min cues. M7 PT-IP Assessment and Plan Start: 01/27/18 12:45 Freq: NEEDED Status: Active Protocol: Document 02/04/18 14:00 GGD (Rec: 02/04/18 14:23 GGD [email or web address]) PT Summary Assessment and Plan Summary Assessment Summary Pt was able to progress gait slightly. She was unstable, but no LOB. She fatigued quickly and had increase in pain. She would benifit from SNF rehab before return home. Frequency of Treatment Frequency Of Treatment Twice a Day Recommendations To Nursing Amount of Assist Needed 1 Person Assist Discharge Recommendations PT Discharge Recommendations SNF Rehab
[2018-02-04 14:15] LABS: BUN Creatinine Ratio 12.1 (6-22); Blood Urea Nitrogen 17 mg/dL (7-17); Calcium 8.4 mg/dL (8.4-10.2); Carbon Dioxide 21 mmol/L (22-32); Chloride 105 mmol/L (98-107); Estimated Glomerular Filt Rate 36.6 mL/min (>60); Glucose 137 mg/dL (80-110); HEMOLYSIS < 15 (0-50); Potassium 5.3 mmol/L (3.4-5.1); Sodium 135 mmol/L (137-145)
[2018-02-04] MEDS: DULOXETINE 30 MG CAPSULE PO (20:48)
[2018-02-04] MEDS: LATANOPROST 0.005% OPHTH 2.5 ML 1 DROPS EYE-BOTH (20:57)
[2018-02-05] VITALS (9 sets, daily range): BP systolic 92–131; BP diastolic 56–78; PULSE 82–88; RESP 16–18; TEMP 36.4–36.8; O2SAT 93–97
[2018-02-05] MEDS: PANTOPRAZOLE 40 MG TABLET PO ×2 (06:26→21:27)
[2018-02-05] MEDS: OXYCODONE IR 5 MG TABLET PO ×2 (06:26→21:27)
--- NOTE | 2018-02-05 06:35 | PC.NURSE ---
NOC patient asleep for a majority of the shift. Up to BSC at 0615, pt passed gas, voided and had a very loose/watery BM, moderate-large in volume. Patient was a little unable on her feet and wobbled. BP taken and was 131/78, HR 84, O2 94%. Patient c/o 7/10 pain in abdomen and left side rib area. Administered 5mg Oxycodone.
[2018-02-05] MEDS: CARVEDILOL 3.125 MG TABLET PO (08:36)
[2018-02-05] MEDS: buPROPion SR 150 MG TAB PO ×2 (08:36→21:27)
[2018-02-05] MEDS: DULOXETINE 30 MG CAPSULE 60 MG PO (08:36)
[2018-02-05] MEDS: GABAPENTIN 300 MG CAPSULE PO ×2 (08:37→21:27)
[2018-02-05] MEDS: SODIUM CHLORIDE 0.9% FLUSH 10 ML IV ×2 (08:37→21:28)
[2018-02-05] MEDS: TIMOLOL 0.25% OPHTH 1 DROPS EYE-BOTH ×2 (08:37→21:26)
[2018-02-05] MEDS: TRIMETH/SULFA 160/800 (DS) TABLET 1 TAB PO ×2 (08:41→21:26)
[2018-02-05] MEDS: FUROSEMIDE 40 MG/4 ML VIAL IV (09:44)
[2018-02-05 09:55] LABS: Blood Urea Nitrogen 15 mg/dL (7-17); Calcium 8.5 mg/dL (8.4-10.2); Carbon Dioxide 20 mmol/L (22-32); Chloride 104 mmol/L (98-107); Estimated Glomerular Filt Rate 33.8 mL/min (>60); Glucose 154 mg/dL (80-110); HEMOLYSIS < 15 (0-50); Potassium 4.7 mmol/L (3.4-5.1); Sodium 135 mmol/L (137-145)
--- NOTE | 2018-02-05 10:28 | P.PN_ITS ---
Subjective Date Patient Seen: 02/05/18 Time Patient Seen: 10:22 Interval history: FOLLOW UP ON SBO WITH ADHESIONS, ACUTE RENAL INSUFFICIENCY, UTI Patient seen at bedside. She is doing well. No overnight events. Diet advanced to regular and patient is tolerating well. Having loose bowel movements. Exam Vital Signs (past 8 hours): - 02/04/18 04:30 02/04/18 07:50 Temperature 97.4 F L 98.0 F Pulse Rate 88 86 Respiratory Rate 16 18 Blood Pressure 111/72 111/76 Pulse Oximetry 96 93 Fraction of Inspired Oxygen 24 Oxygen Delivery Method Room Air Oxygen Flow Rate 0 Narrative Exam Narrative: Gen: NAD, AAOx3 HEENT: PERRLA BL. Neck: Supple CV: RRR, no murmurs Resp: Breath sounds heard in all pichardo, no wheezing GI: Vertical incision wound with steven. clean. Healing well MSK: Normal ROM Skin: NO bruising Objective Labs Result Diagrams: 02/04/18 05:20 document embedded image 02/04/18 05:20 document embedded image Labs: Laboratory Results - last 24 hr 02/04/18 02/04/18 05:20 05:20 WBC 14.1 H RBC 2.94 L Hgb 8.8 L Hct 26.4 L MCV 89.5 MCH 29.7 MCHC 33.2 RDW 18.2 H Plt Count 342 Neut % (Auto) 57.1 Lymph % (Auto) 27.5 [place] % (Auto) 12.2 Eos % (Auto) 2.6 Baso % (Auto) 0.6 Neut # (Auto) 8000 H Sodium 135 L Potassium 5.0 Chloride 103 Carbon Dioxide 23 BUN 16 Creatinine 1.30 H Estimated GFR 39.8 L BUN/Creatinine Ratio 12.3 Glucose 109 Calcium 8.8 Assessment & Plan Plan: Assessment/Plan Narrative: 1. Acute Kidney Injury: - Likely due to Dehydration, slightly worsened than yesterday - Will give 1L bolus at this time - repeat BMP after bolus, and if improving, proceed with discharge 2. SBO (small bowel obstruction): - S/p Exploratory Lap January 26 and adhesion lysis - Patient is postop day 9 Today - WBC stable - 2 view of Abdomen notes clearing of pneumoperitoneum - Advanced diet to regular, tolerating well - Oxycodone for pain control 3. Postoperative anemia: - s/p 2U PRBC - Hb 8.8, stable - Continue to monitor and transfuse as needed 4. Hypertension: - BP stable - Continue Coreg scheduled and metoprolol IV PRN 5. Urinary tract infection: - Growing citrobacter - Continue bactrim DS 1 tab BID for 1 more day after today Time Spent evaluating and providing care for Patient 20 min Possible discharge back to [facility] tomorrow Signed By:<Electronically signed by Paula Poole MD> 02/04/18 1111 FOLLOW UP ON SBO WITH ADHESIONS, ACUTE RENAL INSUFFICIENCY, UTI Patient seen at bedside. She is doing well. No overnight events. Diet advanced to regular and patient is tolerating well. Having loose bowel movements. Exam Vital Signs (past 8 hours): - 02/04/18 04:30 02/04/18 07:50 Temperature 97.4 F L 98.0 F Pulse Rate 88 86 Respiratory Rate 16 18 Blood Pressure 111/72 111/76 Pulse Oximetry 96 93 Fraction of Inspired Oxygen 24 Oxygen Delivery Method Room Air Oxygen Flow Rate 0 Narrative Exam Narrative: Gen: NAD, AAOx3 HEENT: PERRLA BL. Neck: Supple CV: RRR, no murmurs Resp: Breath sounds heard in all pichardo, no wheezing GI: Vertical incision wound with steven. clean. Healing well MSK: Normal ROM Skin: NO bruising Objective Labs Result Diagrams: 02/04/18 05:20 document embedded image 02/04/18 05:20 document embedded image Labs: Laboratory Results - last 24 hr 02/04/18 02/04/18 05:20 05:20 WBC 14.1 H RBC 2.94 L Hgb 8.8 L Hct 26.4 L MCV 89.5 MCH 29.7 MCHC 33.2 RDW 18.2 H Plt Count 342 Neut % (Auto) 57.1 Lymph % (Auto) 27.5 [place] % (Auto) 12.2 Eos % (Auto) 2.6 Baso % (Auto) 0.6 Neut # (Auto) 8000 H Sodium 135 L Potassium 5.0 Chloride 103 Carbon Dioxide 23 BUN 16 Creatinine 1.30 H Estimated GFR 39.8 L BUN/Creatinine Ratio 12.3 Glucose 109 Calcium 8.8 Assessment & Plan Plan: Assessment/Plan Narrative: 1. Acute Kidney Injury: - Likely due to Dehydration, slightly worsened than yesterday - Will give 1L bolus at this time - repeat BMP after bolus, and if improving, proceed with discharge 2. SBO (small bowel obstruction): - S/p Exploratory Lap January 26 and adhesion lysis - Patient is postop day 9 Today - WBC stable - 2 view of Abdomen notes clearing of pneumoperitoneum - Advanced diet to regular, tolerating well - Oxycodone for pain control 3. Postoperative anemia: - s/p 2U PRBC - Hb 8.8, stable - Continue to monitor and transfuse as needed 4. Hypertension: - BP stable - Continue Coreg scheduled and metoprolol IV PRN 5. Urinary tract infection: - Growing citrobacter - Continue bactrim DS 1 tab BID for 1 more day after today Time Spent evaluating and providing care for Patient 20 min Possible discharge back to [facility] tomorrow Signed By:<Electronically signed by Paula Poole MD> 02/04/18 1111 FOLLOW UP ON SBO WITH ADHESIONS, ACUTE KIDNEY INJURY, UTI Patient seen at bedside. yesterday her Cr. was up on the rise again. She received 1L bolus with repeat Cr. worsening. This morning again Cr is getting worse. Will diurese patient and hold discharge. She currently does not complain of overnight events or any symptoms. Exam Vital Signs (past 8 hours): - 02/05/18 06:20 Temperature 97.6 F Pulse Rate 84 Respiratory Rate 18 Blood Pressure 131/78 Pulse Oximetry 94 Fraction of Inspired Oxygen 24 Oxygen Delivery Method Room Air Oxygen Flow Rate 0 Narrative Exam Narrative: Gen: NAD, AAOx3 HEENT: PERRLA BL. Neck: Supple CV: RRR, no murmurs Resp: Breath sounds heard in all pichardo, no wheezing GI: Vertical incision wound with steven. clean. Healing well MSK: Normal ROM Skin: NO bruising Objective Labs Result Diagrams: 02/04/18 05:20 02/05/18 09:35 Labs: Laboratory Results - last 24 hr 02/04/18 02/05/18 13:55 09:35 Sodium 135 L 135 L Potassium 5.3 H 4.7 Chloride 105 104 Carbon Dioxide 21 L 20 L BUN 17 15 Creatinine 1.40 H 1.50 H Estimated GFR 36.6 L 33.8 L BUN/Creatinine Ratio 12.1 10.0 Glucose 137 H 154 H Calcium 8.4 8.5 Assessment & Plan Plan: Assessment/Plan Narrative: 1. Acute Kidney Injury: - Worsening, but adequate UOP - Cr 1.5 - I/O reviewed: Patient is now in positive fluid balance - Will give Lasix 40mg IV now - repeat BMP at 2pm, as well as urine electrolytes for FeNa and FeUrea calculation to rule out intrarenal/postrenal injury 2. SBO (small bowel obstruction): - S/p Exploratory Lap January 26 and adhesion lysis - Patient is postop day 10 Today - WBC on the uprise, will review - Advanced diet to regular, tolerating well - Oxycodone for pain control 3. Postoperative anemia: - s/p 2U PRBC - Hb 8.8, stable - Continue to monitor and transfuse as needed 4. Hypertension: - BP stable - Continue Coreg scheduled and metoprolol IV PRN 5. Urinary tract infection: - Growing citrobacter - Bactrim will finish today Time Spent evaluating and providing care for Patient 20 min
[2018-02-05] MEDS: OXYCODONE IR 10 MG TABLET PO (11:57)
--- NOTE | 2018-02-05 12:10 | PM.PN.1 ---
Subjective Date Patient Seen: 02/05/18 Time Patient Seen: 12:11 Interval history: Denies significant pain. No nausea vomiting. Continues to pass flatus and liquid bowel movement. Tolerating a diet but states that the food does not taste very good. No subjective fever or chills. No chest pain or shortness of breath. No dysuria. Ambulating well. Exam Vital Signs (past 8 hours): - 02/05/18 06:20 Temperature 97.6 F Pulse Rate 84 Respiratory Rate 18 Blood Pressure 131/78 Pulse Oximetry 94 Fraction of Inspired Oxygen 24 Oxygen Delivery Method Room Air Oxygen Flow Rate 0 Narrative Exam Narrative: Well-nourished well-developed in no acute distress. Lying comfortably in bed. Alert oriented x3 Regular rate and rhythm Abdomen soft, nondistended, minimally tender. No masses. Wound is clean, dry, and intact. Baseline ecchymoses of the abdominal wall have not changed. No hematoma. No erythema. Extremities show no clubbing or cyanosis Objective Labs Result Diagrams: 02/04/18 05:20 02/05/18 09:35 Labs: Laboratory Results - last 24 hr 02/04/18 02/05/18 13:55 09:35 Sodium 135 L 135 L Potassium 5.3 H 4.7 Chloride 105 104 Carbon Dioxide 21 L 20 L BUN 17 15 Creatinine 1.40 H 1.50 H Estimated GFR 36.6 L 33.8 L BUN/Creatinine Ratio 12.1 10.0 Glucose 137 H 154 H Calcium 8.4 8.5 creatinine continues to rise slowly and is now 1.5. Origin of acute renal injury is unclear. Assessment & Plan Plan: Assessment/Plan Narrative: 77-year-old female doing well from surgical standpoint and is ready for discharge in that regard. However, acute renal injury persists and she requires ongoing inpatient care per the internal medicine service. I will defer to their judgment regarding management of her renal issues. Fortunately her urine output remains adequate. Electrolytes are stable. Hemoglobin is low but otherwise stable and unremarkable for any changes. No evidence of infectious complications. I removed her sutures and steven from the incision today. She tolerated this well. She may continue to ambulate and shower ad magdaleno. Continue regular diet as tolerated. Once the renal function has stabilized she may be discharged to the assisted facility at any time from a surgical perspective. I discussed all the above with her in detail. All questions were answered to her satisfaction, and she voiced understanding. Orders were written.
--- NOTE | 2018-02-05 13:01 | PT.IPTN ---
Current Diagnoses Hypokalemia (01/24/18) Essential (primary) hypertension (01/24/18) Lobar pneumonia, unspecified organism (01/24/18) Unspecified intestinal obstruction, unspecified as to partial versus complete obstruction (01/24/18) Age-related osteoporosis without current pathological fracture (01/24/18) Disorder of kidney and ureter, unspecified (01/24/18) Urinary tract infection, site not specified (01/24/18) Multiple fractures of ribs, left side, initial encounter for closed fracture (01/24/18) Acquired absence of kidney (01/24/18) Other specified postprocedural states (01/24/18) Surgery Performed Operation Date: 01/26/18 14:30 Actual Procedures p Exploratory Laparotomy GEN - Joel Castaneda MD Physical Therapy Treatment Note M2 PT-IP Current Condition Start: 01/27/18 12:45 Freq: NEEDED Status: Active Protocol: Document 02/05/18 12:47 NFW (Rec: 02/05/18 13:01 NFW [id number]) Physical Therapy Current Condition Current Condition Evaluation Date 02/05/18 Treatment Diagnosis 01/24/18: L sided Chest Pain SBO Onset Date 01/24/18 Precautions Abdominal Surgery Precautions Log Roll Lifting Restrictions Other Precautions Gait belt high on chest due to PICC line and abdominal incision. M3 PT-IP Subjective Start: 01/27/18 12:45 Freq: NEEDED Status: Active Protocol: Document 02/05/18 12:47 NFW (Rec: 02/05/18 13:01 NFW [id number]) Subjective Physical Therapy Visit Type Type Treatment Note Visit Start Time 10:40 Visit Stop Time 11:15 Total Visit Minutes 35 Number of INFRASTRUCTURE SOLUTIONS ARCHITECT Visits 0 Physical Therapy Visit Comments Patient Comments Patient continues to have abdominal pain that increases with any movement. Therapy Pain Assessment Pain When Pain Assessed At Rest Pain Present Pain Present Pain Reported Location Abdomen Intensity 4 Scale Used Numeric (1 - 10) M4 PT-IP Mobility and Gait Start: 01/27/18 12:45 Freq: NEEDED Status: Active Protocol: Document 02/05/18 12:47 NFW (Rec: 02/05/18 13:01 NFW [id number]) PT-Bed Mobility Assessment Rolling Type of Rolling Log Rolling Level of Assist Minimal Assistance Supine to Sit Supine to Sit Contact Guard Assistance Bedrails Sit to Supine Sit to Supine Contact Guard Assistance Scooting Scooting to Edge of Bed Standby Assistance Scooting Up and Down in Bed Standby Assistance PT-Transfer Assessment Sit to and From Stand Sit to and from Stand Standby Assistance Equipment Transfer Assistive Device Gait Belt Front Wheeled Walker Orthotic/Prosthetic Devices or Brace: No Transfers Transfer Destination Bed Chair Toilet Transfer Ability Level of Assist Standby Assistance Comments Mobility Comments Main dues of proper posture with each activity. Has tendency to list to the right in sitting, standing and ambulation. Gait Assessment Gait Gait Assistance Required: Contact Guard Assist Distance (Feet) 40 Able to Maintain Weight Bearing Status Yes During Gait Assistive Devices Assistive Device Gait Belt Front Wheeled Walker Orthotic/Prosthetic Devices or Brace: No Gait Deviations General Gait Pattern Decreased Stride Length Decreased Feet Clearance Lateral Trunk Lean Factors Limiting Gait Function Factors Limiting Gait Function Decreased Activity Tolerance Decreased Strength Poor Balance Comments Gait Comments With cuing patient able to correct list to right in ambulation. PT-Balance Assessment Sitting Balance and Reactions Static Sitting Balance Ability Fair Dynamic Sitting Balance Ability Fair Standing Balance and Reactions Static Standing Balance Ability Fair Dynamic Standing Balance Ability Fair Comments Other Balance Tests/Deviations/Treatment As stated previously, tends to : list to right. M5 PT-IP Objective Assessments Start: 01/27/18 12:45 Freq: NEEDED Status: Active Protocol: Document 01/27/18 14:17 LRN (Rec: 01/27/18 14:49 LRN [id number]) Orientation Orientation/Cognition Level of Alertness Alert Orientation Name Place Situation Language Function Ability No Deficits Noted Safety Awareness Understands Safety Issues Memory Description No Deficits Noted Gross Range of Motion Upper Extremity ROM Assessment Within Functional Limits Lower Extremity ROM Assessment Within Functional Limits Impairments Movement of RLE limited due to L lateral trunk pain. Strength Upper Extremity Strength Assessment Bilaterally Impaired Lower Extremity Strength Assessment Bilaterally Impaired Comments Strength Comments Strength impaired due to rib fracture and abdominal incision pain. M6 PT-IP Treatment Start: 01/27/18 12:45 Freq: NEEDED Status: Active Protocol: Document 02/05/18 12:47 NFW (Rec: 02/05/18 13:01 NFW [id number]) Physical Therapy Treatment Exercises Exercises Ankle Pumps Gluteal Sets Quad Sets Heel Slides Education Education Provided Precautions Safety Other Treatments Other Treatment Performed Added bridge exercise in bed. Standing exercises of weight shifting, overhead reach, marches. M7 PT-IP Assessment and Plan Start: 01/27/18 12:45 Freq: NEEDED Status: Active Protocol: Document 02/05/18 12:47 NFW (Rec: 02/05/18 13:01 NFW [id number]) PT Summary Assessment and Plan Potential Rehabilitation Potential Good Status of Condition at Evaluation Stable Summary Impairments Pain Strength Balance Coordination Gait Activity Tolerance Assessment Summary Concentration on balance in standing and sitting as patient habilitually leans to the right. Pateint pleased with her activity tolerance with treatment. Frequency of Treatment Frequency Of Treatment Twice a Day Recommendations To Nursing Amount of Assist Needed 1 Person Assist Discharge Recommendations PT Discharge Recommendations SNF Rehab
[2018-02-05 13:10] LABS: Bacteria Urine None Seen; RBC Urine None Seen (0-5/HPF); WBC Urine None Seen (0-5/HPF)
--- NOTE | 2018-02-05 13:19 | CM.DPC ---
DCP: continued: Spoke with Dr. Poole early this morning and alerted her to lab results of yesterday after the fluid bolus. Discussed case then later in Team Rounds and she noted that pt was not, today, stable for d/c to [facility]. [facility] was updated. She will continue to keep bed for pt but does say that with pt's many readmissions and the long LOS in the hospital and fragile medical status she would be more comfortable accepting pt on Wednesday when all staff is present in the facility. Agreed to discuss again tomorrow.
[2018-02-05 13:45] LABS: Add Manual Diff / Slide Review NO; Basophils Percent Auto 0.7 % (0-2); Eosinophils Percent Auto 2.5 % (2-4); Hematocrit 25.7 % (36-46); Hemoglobin 8.4 g/dL (12.0-16.0); Mean Corpuscular HGB Conc 32.7 % (30-36); Mean Corpuscular Hemoglobin 29.3 PG (26-34); Mean Corpuscular Volume 89.4 fL (80-100); Monocytes Percent Auto 12.6 % (3-14); Neutrophils Absolute Auto 8900 /uL (3000-5900); Neutrophils Percent Auto 66.2 % (50-75); Platelet Count 449 X10^3/uL (150-400); Red Blood Cell Count 2.87 X10^6/uL (4.0-5.2); Red Cell Distribution Width 19.2 % (11.6-14.8); White Blood Cell Count 13.4 X10^3/uL (4.5-11.0)
[2018-02-05 14:08] LABS: Culture Indicated Urine Cult Not Indicated; Urine Comments Microscopic Normal
[2018-02-05 15:06] LABS: Creatinine Urine Random 11.1 mg/dL; Potassium Urine Random 11.1 mmol/L; Sodium Urine Random 113 mmol/L (30-90)
[2018-02-05 15:11] LABS: Urea Nitrogen,Urine Random < 67 md/dL
--- NOTE | 2018-02-05 15:42 | PT.IPTN ---
Current Diagnoses Hypokalemia (01/24/18) Essential (primary) hypertension (01/24/18) Lobar pneumonia, unspecified organism (01/24/18) Unspecified intestinal obstruction, unspecified as to partial versus complete obstruction (01/24/18) Age-related osteoporosis without current pathological fracture (01/24/18) Disorder of kidney and ureter, unspecified (01/24/18) Urinary tract infection, site not specified (01/24/18) Multiple fractures of ribs, left side, initial encounter for closed fracture (01/24/18) Acquired absence of kidney (01/24/18) Other specified postprocedural states (01/24/18) Surgery Performed Operation Date: 01/26/18 14:30 Actual Procedures p Exploratory Laparotomy GEN - Joel Castaneda MD Physical Therapy Treatment Note M2 PT-IP Current Condition Start: 01/27/18 12:45 Freq: NEEDED Status: Active Protocol: Document 02/05/18 14:55 NFW (Rec: 02/05/18 15:42 NFW [id number]) Physical Therapy Current Condition Current Condition Evaluation Date 02/05/18 Treatment Diagnosis 01/24/18: L sided Chest Pain SBO Onset Date 01/24/18 Precautions Abdominal Surgery Precautions Log Roll Lifting Restrictions Other Precautions Gait belt high on chest due to PICC line and abdominal incision. 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 Willing to walk down hallway. M4 PT-IP Mobility and Gait Start: 01/27/18 12:45 Freq: NEEDED Status: Active Protocol: Document 02/05/18 14:55 NFW (Rec: 02/05/18 15:42 NFW [id number]) PT-Bed Mobility Assessment Rolling Type of Rolling Roll to Right Level of Assist Minimal Assistance Supine to Sit Supine to Sit Contact Guard Assistance Bedrails Scooting Scooting to Edge of Bed Standby Assistance Scooting Up and Down in Bed Standby Assistance PT-Transfer Assessment Sit to and From Stand Sit to and from Stand Standby Assistance Equipment Transfer Assistive Device Gait Belt Front Wheeled Walker Orthotic/Prosthetic Devices or Brace: No Transfers Transfer Destination Chair Toilet Transfer Ability Level of Assist Minimal Assistance Comments Mobility Comments Patient's LE progressively weaker with each transfer. Patient felt like her legs were going to give out. Gait Assessment Gait Gait Assistance Required: Minimum Assistance Distance (Feet) 20 Assistive Devices Assistive Device Gait Belt Front Wheeled Walker Orthotic/Prosthetic Devices or Brace: No Gait Deviations General Gait Pattern Decreased Stride Length Decreased Feet Clearance Lateral Trunk Lean Factors Limiting Gait Function Factors Limiting Gait Function Decreased Activity Tolerance Decreased Strength Poor Balance Comments Gait Comments Combination of general fatigue and weakness LEs, unable to perform has hoped. Walked only 20' with hopes of 60'. PT-Balance Assessment Standing Balance and Reactions Static Standing Balance Ability Fair Dynamic Standing Balance Ability Fair Comments Other Balance Tests/Deviations/Treatment As stated previously, tends to : list to right. M5 PT-IP Objective Assessments Start: 01/27/18 12:45 Freq: NEEDED Status: Active Protocol: Document 01/27/18 14:17 LRN (Rec: 01/27/18 14:49 LRN [id number]) Orientation Orientation/Cognition Level of Alertness Alert Orientation Name Place Situation Language Function Ability No Deficits Noted Safety Awareness Understands Safety Issues Memory Description No Deficits Noted Gross Range of Motion Upper Extremity ROM Assessment Within Functional Limits Lower Extremity ROM Assessment Within Functional Limits Impairments Movement of RLE limited due to L lateral trunk pain. Strength Upper Extremity Strength Assessment Bilaterally Impaired Lower Extremity Strength Assessment Bilaterally Impaired Comments Strength Comments Strength impaired due to rib fracture and abdominal incision pain. M6 PT-IP Treatment Start: 01/27/18 12:45 Freq: NEEDED Status: Active Protocol: Document 02/05/18 14:55 NFW (Rec: 02/05/18 15:42 NFW [id number]) Physical Therapy Treatment Other Treatments Other Treatment Performed Attempted standing balance exercises, after a few repetitions, patient felt like legs were going to buckle. M7 PT-IP Assessment and Plan Start: 01/27/18 12:45 Freq: NEEDED Status: Active Protocol: Document 02/05/18 14:55 NFW (Rec: 02/05/18 15:42 NFW [id number]) PT Summary Assessment and Plan Summary Impairments Pain Strength Balance Coordination Gait Activity Tolerance Assessment Summary Treatment not tolerated as well, c/o weakness into LEs with feeling of buckling. Nursing informed. Frequency of Treatment Frequency Of Treatment Twice a Day Treatment Plan Physical Therapy Treatment Plan Bed Mobility Training Transfer Training Gait Training Therapeutic Exercise Balance Retraining Recommendations To Nursing Amount of Assist Needed 1 Person Assist Discharge Recommendations PT Discharge Recommendations SNF Rehab
[2018-02-05 15:48] LABS: BUN Creatinine Ratio 9.4 (6-22); Blood Urea Nitrogen 16 mg/dL (7-17); Calcium 8.7 mg/dL (8.4-10.2); Carbon Dioxide 20 mmol/L (22-32); Chloride 103 mmol/L (98-107); Estimated Glomerular Filt Rate 29.2 mL/min (>60); Glucose 108 mg/dL (80-110); HEMOLYSIS < 15 (0-50); Sodium 134 mmol/L (137-145)
[2018-02-05 17:52] LABS: Appearance Urine UA CLEAR; Bilirubin Urine UA NEGATIVE (NEGATIVE); Color Urine UA YELLOW; Glucose Urine UA NEGATIVE (Normal); Ketones Urine UA NEGATIVE (NEGATIVE); Leukocyte Esterase Urine UA NEGATIVE (NEGATIVE); Nitrite Urine UA NEGATIVE (Negative); Occult Blood Urine UA NEGATIVE (Negative); Protein Urine UA NEGATIVE (Negative); Urobilinogen Urine UA 0.2 E.U./dL (0.2); pH Urine UA 5.5 (4.5-8.0)
[2018-02-05] MEDS: LATANOPROST 0.005% OPHTH 2.5 ML 1 DROPS EYE-BOTH (21:26)
[2018-02-05] MEDS: DULOXETINE 30 MG CAPSULE PO (21:27)
[2018-02-06] VITALS (9 sets, daily range): BP systolic 90–155; BP diastolic 54–87; PULSE 77–100; RESP 16–21; TEMP 36.3–36.9; O2SAT 91–96
[2018-02-06] MEDS: OXYCODONE IR 5 MG TABLET PO ×5 (03:58→21:27)
[2018-02-06] MEDS: SODIUM CHLORIDE 0.9% FLUSH 10 ML IV ×4 (05:50→21:20)
[2018-02-06 06:08] LABS: BUN Creatinine Ratio 7.9 (6-22); Blood Urea Nitrogen 15 mg/dL (7-17); Calcium 8.4 mg/dL (8.4-10.2); Carbon Dioxide 20 mmol/L (22-32); Chloride 104 mmol/L (98-107); Estimated Glomerular Filt Rate 25.7 mL/min (>60); Glucose 94 mg/dL (80-110); HEMOLYSIS < 15 (0-50); Potassium 4.2 mmol/L (3.4-5.1); Sodium 136 mmol/L (137-145)
[2018-02-06 06:15] LABS: Add Manual Diff / Slide Review NO; Basophils Percent Auto 0.6 % (0-2); Eosinophils Percent Auto 2.7 % (2-4); Hemoglobin 7.7 g/dL (12.0-16.0); Lymphocytes Percent Auto 17.5 % (25-40); Mean Corpuscular HGB Conc 32.1 % (30-36); Mean Corpuscular Hemoglobin 29.1 PG (26-34); Mean Corpuscular Volume 90.5 fL (80-100); Monocytes Percent Auto 13.8 % (3-14); Neutrophils Absolute Auto 7400 /uL (3000-5900); Neutrophils Percent Auto 65.4 % (50-75); Platelet Count 389 X10^3/uL (150-400); Red Blood Cell Count 2.63 X10^6/uL (4.0-5.2); Red Cell Distribution Width 19.9 % (11.6-14.8); White Blood Cell Count 11.3 X10^3/uL (4.5-11.0)
[2018-02-06 06:17] LABS: Hematocrit 23.9 % (36-46)
--- NOTE | 2018-02-06 07:03 | PC.NURSE ---
NOC pt AO and asleep for most of the shift. Patient was up to BSC x2 with FWW and moderately unstable/wobbly. 10/26 reported at 0350 and I administered 5mg oxycodone, pt able to fall back asleep.
--- NOTE | 2018-02-06 07:10 | PM.PN.1 ---
Subjective Date Patient Seen: 02/06/18 Time Patient Seen: 07:11 Interval history: FOLLOW UP ON SBO WITH ADHESIONS, ACUTE RENAL INSUFFICIENCY Patient seen at bedside. She is doing well, continues to produce good amount of urine. No pain at this time. No overnight events. Cr is still on the uprise- will have to hold discharge until renal function stabilizes Exam Vital Signs (past 8 hours): - 02/05/18 23:30 02/06/18 04:05 Temperature 97.9 F 97.5 F L Pulse Rate 82 78 Respiratory Rate 16 18 Blood Pressure 101/68 127/71 Pulse Oximetry 95 96 Fraction of Inspired Oxygen 24 Oxygen Delivery Method Room Air Oxygen Flow Rate 0 Narrative Exam Narrative: Gen: NAD, AAOx3 HEENT: PERRLA BL. Neck: Supple CV: RRR, no murmurs Resp: Breath sounds heard in all pichardo, no wheezing GI: Vertical incision wound with steven. clean. Healing well MSK: Normal ROM Skin: NO bruising Objective Labs Result Diagrams: 02/06/18 05:45 02/06/18 05:45 Labs: Laboratory Results - last 24 hr 02/05/18 02/05/18 02/05/18 09:35 12:45 12:45 WBC RBC Hgb Hct MCV MCH MCHC RDW Plt Count Neut % (Auto) Lymph % (Auto) [place] % (Auto) Eos % (Auto) Baso % (Auto) Neut # (Auto) Sodium 135 L Potassium 4.7 Chloride 104 Carbon Dioxide 20 L BUN 15 Creatinine 1.50 H Estimated GFR 33.8 L BUN/Creatinine Ratio 10.0 Glucose 154 H Calcium 8.5 Urine Color Urine Appearance Urine pH Ur Specific [place] Urine Protein Urine Glucose (UA) Urine Ketones Urine Occult Blood Urine Nitrate Urine Bilirubin Urine Urobilinogen Ur Leukocyte Esterase Urine RBC None seen Urine WBC None seen Urine Bacteria None seen Ur Culture Indicated? Cult not indicated Micro UA Comment Microscopic normal Ur Random Sodium 113 H Ur Random Potassium 11.1 Urine Creatinine 11.1 Urine Urea Nitrogen < 67 02/05/18 02/05/18 02/05/18 12:45 12:50 12:50 WBC 13.4 H RBC 2.87 L Hgb 8.4 L Hct 25.7 L MCV 89.4 MCH 29.3 MCHC 32.7 RDW 19.2 H Plt Count 449 H Neut % (Auto) 66.2 Lymph % (Auto) 18.0 L [place] % (Auto) 12.6 Eos % (Auto) 2.5 Baso % (Auto) 0.7 Neut # (Auto) 8900 H Sodium 134 L Potassium 5.0 Chloride 103 Carbon Dioxide 20 L BUN 16 Creatinine 1.70 H Estimated GFR 29.2 L BUN/Creatinine Ratio 9.4 Glucose 108 Calcium 8.7 Urine Color Yellow Urine Appearance Clear Urine pH 5.[address] [place] 1.010 Urine Protein Negative Urine Glucose (UA) Negative Urine Ketones Negative Urine Occult Blood Negative Urine Nitrate Negative Urine Bilirubin Negative Urine Urobilinogen 0.2 Ur Leukocyte Esterase Negative Urine RBC Urine WBC Urine Bacteria Ur Culture Indicated? Micro UA Comment Ur Random Sodium Ur Random Potassium Urine Creatinine Urine Urea Nitrogen 02/06/18 02/06/18 05:45 05:45 WBC 11.3 H RBC 2.63 L Hgb 7.7 L Hct 23.9 L MCV 90.5 MCH 29.1 MCHC 32.1 RDW 19.9 H Plt Count 389 Neut % (Auto) 65.4 Lymph % (Auto) 17.5 L [place] % (Auto) 13.8 Eos % (Auto) 2.7 Baso % (Auto) 0.6 Neut # (Auto) 7400 H Sodium 136 L Potassium 4.2 Chloride 104 Carbon Dioxide 20 L BUN 15 Creatinine 1.90 H Estimated GFR 25.7 L BUN/Creatinine Ratio 7.9 Glucose 94 Calcium 8.4 Urine Color Urine Appearance Urine pH Ur Specific [place] Urine Protein Urine Glucose (UA) Urine Ketones Urine Occult Blood Urine Nitrate Urine Bilirubin Urine Urobilinogen Ur Leukocyte Esterase Urine RBC Urine WBC Urine Bacteria Ur Culture Indicated? Micro UA Comment Ur Random Sodium Ur Random Potassium Urine Creatinine Urine Urea Nitrogen Assessment & Plan Plan: Assessment/Plan Narrative: 1. Acute Kidney Injury: - Patient's renal function continues to worsen despite hydration and then diuresis - Cr 1.9 - Urine studies done: according to FeUrea calculations, patient is with intrinsic injury; according to FeNa calcualations, patient is in post-obstructive injury - At this point, the only offending agent on patient's med list that has been shown to be associated with renal injury is Bactrim, which patient received for UTI - Bactrim is now finished...will monitor for renal improvement, and if Urine output worsens, may need to consult with nephrology 2. SBO (small bowel obstruction): - S/p Exploratory Lap January 26 and adhesion lysis - Patient is postop day 9 Today - WBC stable - Tolerating PO diet well - Oxycodone for pain control 3. Postoperative anemia: - s/p 2U PRBC - Hb 7.7, today but patient is asymptomatic - Continue to monitor and transfuse as needed 4. Hypertension: - BP stable - Continue Coreg scheduled and metoprolol IV PRN 5. Urinary tract infection: - Growing citrobacter - Finished the course of Bactrim Time Spent evaluating and providing care for Patient 20 min Discharge to [facility] when patient's renal function improves
--- NOTE | 2018-02-06 08:24 | CM.DANOTE ---
DCP: continued: Dr. Poole has seen pt this morning and identifies Acute Kidney Injury with ? offending agent Bactrim. P: as stated by Dr. Poole: moniter for renal improvement (Bactrim course is completed) and, if urine output worsens consider nephrology consult.. [facility] when renal function improves. Ashley/[facility] is faxed Dr. Poole's progress note and will update her later today via phone.
[2018-02-06] MEDS: DULOXETINE 30 MG CAPSULE 60 MG PO (08:30)
[2018-02-06] MEDS: PANTOPRAZOLE 40 MG TABLET PO ×2 (08:31→21:18)
[2018-02-06] MEDS: buPROPion SR 150 MG TAB PO ×2 (08:31→21:19)
[2018-02-06] MEDS: TIMOLOL 0.25% OPHTH 1 DROPS EYE-BOTH ×2 (08:32→21:20)
[2018-02-06] MEDS: GABAPENTIN 300 MG CAPSULE PO ×2 (08:33→21:18)
--- NOTE | 2018-02-06 12:32 | PT.IPTN ---
Current Diagnoses Hypokalemia (01/24/18) Essential (primary) hypertension (01/24/18) Lobar pneumonia, unspecified organism (01/24/18) Unspecified intestinal obstruction, unspecified as to partial versus complete obstruction (01/24/18) Age-related osteoporosis without current pathological fracture (01/24/18) Disorder of kidney and ureter, unspecified (01/24/18) Urinary tract infection, site not specified (01/24/18) Multiple fractures of ribs, left side, initial encounter for closed fracture (01/24/18) Acquired absence of kidney (01/24/18) Other specified postprocedural states (01/24/18) Surgery Performed Operation Date: 01/26/18 14:30 Actual Procedures p Exploratory Laparotomy GEN - Joel Castaneda MD Physical Therapy Treatment Note M2 PT-IP Current Condition Start: 01/27/18 12:45 Freq: NEEDED Status: Active Protocol: Document 02/05/18 14:55 NFW (Rec: 02/05/18 15:42 NFW [id number]) Physical Therapy Current Condition Current Condition Evaluation Date 02/05/18 Treatment Diagnosis 01/24/18: L sided Chest Pain SBO Onset Date 01/24/18 Precautions Abdominal Surgery Precautions Log Roll Lifting Restrictions Other Precautions Gait belt high on chest due to PICC line and abdominal incision. M3 PT-IP Subjective Start: 01/27/18 12:45 Freq: NEEDED Status: Active Protocol: Document 02/06/18 10:35 CLB (Rec: 02/06/18 12:32 CLB [id number]) Subjective Physical Therapy Visit Type Type Treatment Note Visit Start Time 10:35 Visit Stop Time 10:58 Total Visit Minutes 23 Number of HABILITATION ASSISTANT Visits 1 Physical Therapy Visit Comments Patient Comments Pt willing to sit up in chair. M4 PT-IP Mobility and Gait Start: 01/27/18 12:45 Freq: NEEDED Status: Active Protocol: Document 02/06/18 10:35 CLB (Rec: 02/06/18 12:32 CLB [id number]) PT-Bed Mobility Assessment Rolling Type of Rolling Roll to Right Level of Assist Standby Assistance Supine to Sit Supine to Sit Standby Assistance Bedrails Scooting Scooting to Edge of Bed Standby Assistance PT-Transfer Assessment Sit to and From Stand Sit to and from Stand Standby Assistance Equipment Transfer Assistive Device Gait Belt Front Wheeled Walker Orthotic/Prosthetic Devices or Brace: No Transfers Transfer Destination Chair Transfer Ability Level of Assist Standby Assistance Comments Mobility Comments Pt had mild dizziness upon standing that subsided quickly . Gait Assessment Gait Gait Assistance Required: Contact Guard Assist Distance (Feet) 40 Able to Maintain Weight Bearing Status Yes During Gait Assistive Devices Assistive Device Gait Belt Front Wheeled Walker Orthotic/Prosthetic Devices or Brace: No Gait Deviations General Gait Pattern Decreased Stride Length Decreased Feet Clearance Lateral Trunk Lean Factors Limiting Gait Function Factors Limiting Gait Function Decreased Activity Tolerance Decreased Strength Poor Balance Comments Gait Comments Pt ambulated 15ft before needing a seated rest break. Pt then ambulated another 15ft and stated she needed to sit down due to feeling lightheaded. Seated BP 109/69. Pt had slight LOB to right side with right turn. PT-Balance Assessment Comments Other Balance Tests/Deviations/Treatment As stated previously, tends to : list to right. M5 PT-IP Objective Assessments Start: 01/27/18 12:45 Freq: NEEDED Status: Active Protocol: Document 01/27/18 14:17 LRN (Rec: 01/27/18 14:49 LRN [id number]) Orientation Orientation/Cognition Level of Alertness Alert Orientation Name Place Situation Language Function Ability No Deficits Noted Safety Awareness Understands Safety Issues Memory Description No Deficits Noted Gross Range of Motion Upper Extremity ROM Assessment Within Functional Limits Lower Extremity ROM Assessment Within Functional Limits Impairments Movement of RLE limited due to L lateral trunk pain. Strength Upper Extremity Strength Assessment Bilaterally Impaired Lower Extremity Strength Assessment Bilaterally Impaired Comments Strength Comments Strength impaired due to rib fracture and abdominal incision pain. M6 PT-IP Treatment Start: 01/27/18 12:45 Freq: NEEDED Status: Active Protocol: Document 02/05/18 14:55 NFW (Rec: 02/05/18 15:42 NFW [id number]) Physical Therapy Treatment Other Treatments Other Treatment Performed Attempted standing balance exercises, after a few repetitions, patient felt like legs were going to buckle. M7 PT-IP Assessment and Plan Start: 01/27/18 12:45 Freq: NEEDED Status: Active Protocol: Document 02/06/18 10:35 CLB (Rec: 02/06/18 12:32 CLB [id number]) PT Summary Assessment and Plan Summary Impairments Pain Strength Balance Coordination Gait Activity Tolerance Assessment Summary Pt able to tolerate increased ambulation with one seated rest break before feeling lightheaded needing to sit. Pt had no buckling of LE but did have LOB to right during right turn. Pt left in elevated chair, call light and all needs within reach. Frequency of Treatment Frequency Of Treatment Twice a Day Treatment Plan Physical Therapy Treatment Plan Bed Mobility Training Transfer Training Gait Training Therapeutic Exercise Balance Retraining Recommendations To Nursing Amount of Assist Needed 1 Person Assist Discharge Recommendations PT Discharge Recommendations SNF Rehab
[2018-02-06] MEDS: CARVEDILOL 3.125 MG TABLET PO ×2 (12:55→21:18)
--- NOTE | 2018-02-06 16:09 | PT.IPTN ---
Current Diagnoses Hypokalemia (01/24/18) Essential (primary) hypertension (01/24/18) Lobar pneumonia, unspecified organism (01/24/18) Intestinal adhesions [bands], unspecified as to partial versus complete obstruction (01/24/18) Unspecified intestinal obstruction, unspecified as to partial versus complete obstruction (01/24/18) Age-related osteoporosis without current pathological fracture (01/24/18) Disorder of kidney and ureter, unspecified (01/24/18) Urinary tract infection, site not specified (01/24/18) Multiple fractures of ribs, left side, initial encounter for closed fracture (01/24/18) Other specified postprocedural states (01/24/18) Surgery Performed Operation Date: 01/26/18 14:30 Actual Procedures p Exploratory Laparotomy - Joel Castaneda MD Physical Therapy Treatment Note M2 PT-IP Current Condition Start: 01/27/18 12:45 Freq: NEEDED Status: Active Protocol: Document 02/05/18 14:55 NFW (Rec: 02/05/18 15:42 NFW [id number]) Physical Therapy Current Condition Current Condition Evaluation Date 02/05/18 Treatment Diagnosis 01/24/18: L sided Chest Pain SBO Onset Date 01/24/18 Precautions Abdominal Surgery Precautions Log Roll Lifting Restrictions Other Precautions Gait belt high on chest due to PICC line and abdominal incision. M3 PT-IP Subjective Start: 01/27/18 12:45 Freq: NEEDED Status: Active Protocol: Document 02/06/18 15:40 CLB (Rec: 02/06/18 16:07 CLB [id number]) Subjective Physical Therapy Visit Type Type Treatment Note Visit Start Time 15:40 Visit Stop Time 15:55 Total Visit Minutes 15 Number of ETIOLOGIST Visits 2 Physical Therapy Visit Comments Patient Comments Pt willing to sit up in chair. M4 PT-IP Mobility and Gait Start: 01/27/18 12:45 Freq: NEEDED Status: Active Protocol: Document 02/06/18 15:40 CLB (Rec: 02/06/18 16:07 CLB [id number]) PT-Bed Mobility Assessment Rolling Type of Rolling Roll to Right Level of Assist Standby Assistance Supine to Sit Supine to Sit Standby Assistance Bedrails Scooting Scooting to Edge of Bed Standby Assistance PT-Transfer Assessment Sit to and From Stand Sit to and from Stand Standby Assistance Equipment Transfer Assistive Device Gait Belt Front Wheeled Walker Orthotic/Prosthetic Devices or Brace: No Transfers Transfer Destination Chair Transfer Ability Level of Assist Standby Assistance Gait Assessment Gait Gait Assistance Required: Contact Guard Assist Distance (Feet) 15 Assistive Devices Assistive Device Gait Belt Front Wheeled Walker Gait Deviations General Gait Pattern Decreased Stride Length Decreased Feet Clearance Lateral Trunk Lean Factors Limiting Gait Function Factors Limiting Gait Function Decreased Activity Tolerance Decreased Strength Poor Balance Comments Gait Comments Pt with LOB during to right during ambulation. Pt needs CGA for ambulation. Pt fatigued quickly and needed to sit after 15ft. PT-Balance Assessment Comments Other Balance Tests/Deviations/Treatment As stated previously, tends to : list to right. M5 PT-IP Objective Assessments Start: 01/27/18 12:45 Freq: NEEDED Status: Active Protocol: Document 01/27/18 14:17 LRN (Rec: 01/27/18 14:49 LRN [id number]) Orientation Orientation/Cognition Level of Alertness Alert Orientation Name Place Situation Language Function Ability No Deficits Noted Safety Awareness Understands Safety Issues Memory Description No Deficits Noted Gross Range of Motion Upper Extremity ROM Assessment Within Functional Limits Lower Extremity ROM Assessment Within Functional Limits Impairments Movement of RLE limited due to L lateral trunk pain. Strength Upper Extremity Strength Assessment Bilaterally Impaired Lower Extremity Strength Assessment Bilaterally Impaired Comments Strength Comments Strength impaired due to rib fracture and abdominal incision pain. M6 PT-IP Treatment Start: 01/27/18 12:45 Freq: NEEDED Status: Active Protocol: Document 02/06/18 15:40 CLB (Rec: 02/06/18 16:07 CLB [id number]) Physical Therapy Treatment Exercises Exercises Gluteal Sets Quad Sets Education Education Provided Precautions Safety M7 PT-IP Assessment and Plan Start: 01/27/18 12:45 Freq: NEEDED Status: Active Protocol: Document 02/06/18 16:08 CLB (Rec: 02/06/18 16:09 CLB [id number]) PT Summary Assessment and Plan Summary Impairments Pain Strength Balance Coordination Gait Activity Tolerance Assessment Summary Pt had no dizziness with tx but fatigued after 15ft needing to sit down. Goals Bed Mobility Goal Standby Assistance Transfer Goal Standby Assistance Gait Goal Standby Assistance Front Wheel Walker Frequency of Treatment Frequency Of Treatment Twice a Day Treatment Plan Physical Therapy Treatment Plan Bed Mobility Training Transfer Training Gait Training Therapeutic Exercise Balance Retraining Recommendations To Nursing Amount of Assist Needed 1 Person Assist Discharge Recommendations PT Discharge Recommendations SNF Rehab
--- NOTE | 2018-02-06 17:53 | P.PN_ITS ---
Subjective Date Patient Seen: 02/06/18 Time Patient Seen: 17:51 Interval history: Patient has no new specific complaints. Pain is controlled. Creatinine continues to increase however. Discharge has therefore been held until this issue is stabilized. She continues to have good urine output spontaneously as well as bowel movements. Exam Vital Signs (past 8 hours): - 02/06/18 12:55 02/06/18 13:28 02/06/18 15:25 Temperature 98.4 F 98.1 F Pulse Rate 100 H 89 79 Respiratory Rate 16 17 Blood Pressure 155/72 H 155/87 H 102/65 Pulse Oximetry 91 Fraction of Inspired Oxygen 24 Oxygen Delivery Method Room Air Oxygen Flow Rate 0 Narrative Exam Narrative: Sitting comfortably in bed. She remains afebrile and otherwise hemodynamically stable. Alert oriented x3 Abdomen soft, nondistended, nontender. Wound clean, dry, and intact. Chest clear to auscultation Objective Labs Result Diagrams: 02/06/18 05:45 02/06/18 05:45 Labs: Laboratory Results - last 24 hr 02/05/18 02/06/18 02/06/18 12:45 05:45 05:45 WBC 11.3 H RBC 2.63 L Hgb 7.7 L Hct 23.9 L MCV 90.5 MCH 29.1 MCHC 32.1 RDW 19.9 H Plt Count 389 Neut % (Auto) 65.4 Lymph % (Auto) 17.5 L [place] % (Auto) 13.8 Eos % (Auto) 2.7 Baso % (Auto) 0.6 Neut # (Auto) 7400 H Sodium 136 L Potassium 4.2 Chloride 104 Carbon Dioxide 20 L BUN 15 Creatinine 1.90 H Estimated GFR 25.7 L BUN/Creatinine Ratio 7.9 Glucose 94 Calcium 8.4 Urine Color Yellow Urine Appearance Clear Urine pH 5.5 Ur Specific [place] 1.010 Urine Protein Negative Urine Glucose (UA) Negative Urine Ketones Negative Urine Occult Blood Negative Urine Nitrate Negative Urine Bilirubin Negative Urine Urobilinogen 0.2 Ur Leukocyte Esterase Negative Assessment & Plan Plan: Assessment/Plan Narrative: 77-year-old female status post exploratory laparotomy with lysis of adhesions for bowel obstruction who from a surgical standpoint is doing well. The rising creatinine and acute renal injury are of unclear etiology. Agree the Bactrim would be the only obvious issue at this point. Nevertheless continue to monitor closely. Will defer to the expertise of the internal medicine service in that regard. Once the acute renal injury has stabilized and she is stable from a medical standpoint then she may be discharged as indicated earlier. Patient agreeable to the plan.
[2018-02-06] MEDS: HYDROCORTISONE 1% CREAM 28 GM 1 APPLIC TOP (18:28)
[2018-02-06] MEDS: SENNOSIDES 8.6 MG TABLET PO (21:18)
[2018-02-06] MEDS: LATANOPROST 0.005% OPHTH 2.5 ML 1 DROPS EYE-BOTH (21:18)
[2018-02-06] MEDS: DOCUSATE 100 MG CAPSULE PO (21:18)
--- NOTE | 2018-02-07 | DI.US.S_ITS ---
PROCEDURE: US RENAL COMPLETE INDICATIONS: post-renal ALOK. Evaluate for obstruction TECHNIQUE: Real-time scanning was performed of the kidneys and bladder, with image documentation. COMPARISON: [facility], US, RENAL OR RETROPERITONEAL LIMIT, 05/22/2011, 11:05. [facility], US, RENAL OR RETROPERITONEAL LIMIT, 11/03/2014, 12:22. [facility], CT, CT ABDOMEN PELVIS W CON, 01/24/2018, 16:55. FINDINGS: Kidneys: The right kidney has been removed. No abnormalities are seen within the right nephrectomy bed. The left kidney measures 11.6 cm in length and demonstrates a normal cortical thickness. No stones or hydronephrosis can be seen. No solid left renal masses are seen by ultrasound. Bladder: Pre-void bladder volume is 750 mL. Post-void residual is 100 mL. Pre-void images demonstrate no intraluminal masses or stones. On pre-void images, neither of the ureteral jets are noted with color Doppler interrogation. (Of note, ureteral jets may not be detectable in up to 25% of cases due to insufficient differences in specific gravity between ureteral and bladder urine). Miscellaneous: No free pelvic fluid. IMPRESSION: Unremarkable left kidney, without hydronephrosis. Status post right nephrectomy. Moderate postvoid residual (100 cc). Dictated by: Dave Craft M.D. on 02/07/2018 at 9:49 Approved by: Dave Craft M.D. on 02/07/2018 at 9:51
[2018-02-07] MEDS: OXYCODONE IR 5 MG TABLET PO ×2 (00:38→12:04)
[2018-02-07 04:19] VITALS: BP 102/58; PULSE 68; RESP 18; TEMP 36.7; O2SAT 95
[2018-02-07] MEDS: PANTOPRAZOLE 40 MG TABLET PO (05:38)
[2018-02-07 05:52] LABS: BUN Creatinine Ratio 8.2 (6-22); Blood Urea Nitrogen 14 mg/dL (7-17); Calcium 8.7 mg/dL (8.4-10.2); Carbon Dioxide 20 mmol/L (22-32); Chloride 107 mmol/L (98-107); Estimated Glomerular Filt Rate 29.2 mL/min (>60); Glucose 90 mg/dL (80-110); HEMOLYSIS < 15 (0-50); Sodium 138 mmol/L (137-145)
[2018-02-07 06:01] LABS: Add Manual Diff / Slide Review NO; Eosinophils Percent Auto 2.5 % (2-4); Hemoglobin 7.6 g/dL (12.0-16.0); Lymphocytes Percent Auto 25.7 % (25-40); Mean Corpuscular Hemoglobin 29.9 PG (26-34); Mean Corpuscular Volume 90.6 fL (80-100); Monocytes Percent Auto 13.4 % (3-14); Neutrophils Absolute Auto 5300 /uL (3000-5900); Neutrophils Percent Auto 57.4 % (50-75); Platelet Count 398 X10^3/uL (150-400); Red Blood Cell Count 2.55 X10^6/uL (4.0-5.2); Red Cell Distribution Width 19.1 % (11.6-14.8); White Blood Cell Count 9.2 X10^3/uL (4.5-11.0)
[2018-02-07 06:04] LABS: Hematocrit 23.1 % (36-46)
[2018-02-07 09:00] VITALS: BP 101/64; PULSE 71; RESP 16; TEMP 36.6; O2SAT 96
[2018-02-07] MEDS: CARVEDILOL 3.125 MG TABLET PO (10:07)
[2018-02-07] MEDS: buPROPion SR 150 MG TAB PO (10:07)
[2018-02-07] MEDS: DULOXETINE 30 MG CAPSULE 60 MG PO (10:08)
[2018-02-07] MEDS: GABAPENTIN 300 MG CAPSULE PO (10:08)
[2018-02-07] MEDS: TIMOLOL 0.25% OPHTH 1 DROPS EYE-BOTH (10:09)
[2018-02-07] MEDS: SODIUM CHLORIDE 0.9% FLUSH 10 ML IV (10:11)
--- NOTE | 2018-02-07 10:44 | PM.PN.1 ---
Subjective Date Patient Seen: 02/07/18 Time Patient Seen: 10:45 Interval history: FOLLOW UP ON SBO WITH ADHESIONS, ACUTE RENAL INSUFFICIENCY Patient seen at bedside. She is doing well, continues to produce good amount of urine. No overnight events. Renal function is improving. Exam Vital Signs (past 8 hours): - 02/07/18 04:19 02/07/18 09:00 Temperature 98.1 F 97.9 F Pulse Rate 68 71 Respiratory Rate 18 16 Blood Pressure 102/58 L 101/64 Pulse Oximetry 95 96 Fraction of Inspired Oxygen 24 Oxygen Delivery Method Room Air Oxygen Flow Rate 0 Narrative Exam Narrative: Gen: NAD, AAOx3 HEENT: PERRLA BL Neck: Supple CV: RRR, no murmurs Resp: Breath sounds heard in all pichardo, no wheezing GI: Vertical incision wound with steven. clean. Healing well MSK: Normal ROM Skin: NO bruising Objective Labs Result Diagrams: 02/07/18 05:00 02/07/18 05:00 Labs: Laboratory Results - last 24 hr 02/07/18 02/07/18 05:00 05:00 WBC 9.2 RBC 2.55 L Hgb 7.6 L Hct 23.1 L MCV 90.6 MCH 29.9 MCHC 33.0 RDW 19.1 H Plt Count 398 Neut % (Auto) 57.4 Lymph % (Auto) 25.7 Person % (Auto) 13.4 Eos % (Auto) 2.5 Baso % (Auto) 1.0 Neut # (Auto) 5300 Sodium 138 Potassium 4.0 Chloride 107 Carbon Dioxide 20 L BUN 14 Creatinine 1.70 H Estimated GFR 29.2 L BUN/Creatinine Ratio 8.2 Glucose 90 Calcium 8.7 Assessment & Plan Plan: Assessment/Plan Narrative: 1. Acute Kidney Injury: - Likely bactrim induced - renal function is finally turning around, Cr 1.7 today - Patient is stable to go back to [facility] today but will need another BMP in 2 days to make sure renal function continues to improve 2. SBO (small bowel obstruction): - S/p Exploratory Lap January 26 and adhesion lysis - Patient is postop day 10 Today - WBC stable - Tolerating PO diet well - Oxycodone for pain control 3. Postoperative anemia: - s/p 2U PRBC - Hb 7.6, today but patient is asymptomatic - Should get H/H check in one week, and if continues to worsen, follow up with GI/PCP for further anemia work up 4. Hypertension: - BP stable - Continue Coreg scheduled and metoprolol IV PRN 5. Urinary tract infection: - Growing citrobacter - Finished the course of Bactrim Time Spent evaluating and providing care for Patient 20 min Patient is stable for discharge with repeat of BMP in 2 days and repeat of H/H in one week
[2018-02-07] MEDS: BENZOCAINE/MENTHOL 1 LOZ PKT 1 EACH PO (12:05)
--- NOTE | 2018-02-07 14:13 | CM.DPC ---
DCP Cont: Patient to be discharged today back to [facility]. Called and spoke to Ashley, and stated that they could pick her up at 1:30. Had hospitalist sign new med sheet, and faxed over to [facility]. Updated nurse on grain picker time, as well as white board. P: Discharge today back to [facility]. No PASSR needed, per Ashley, for patient was there before admit to hospital. Florencia Kent RN/Barrel Cutter
--- NOTE | 2018-03-09 15:55 | PM.DS.1 ---
History of Present Illness Date Patient Seen: 02/07/18 Time Patient Seen: 15:58 Chief complaint: L sided chest pain Narrative: 77 y/o female who was hospitalized last week following a fall for multiple rib fractures. She was discharged to [facility] where she was well until 2 days prior to admission. Patient reports she developed nausea, vomiting, and abdominal pain. She has been unable to eat for the last 2 days because of the nausea. She felt chilled but had no fever. She had a cough that was non productive. She denies any hemetemesis, bright red blood per rectum or melena. Patient has felt poorly and presented to the hospital for evaluation. Her right lower quadrant pain is dull, does not radiate is not worse with coughing and does not seem to improve with activity. Discharge Providers Date of admission: 01/24/18 17:48 Primary care physician: Maryanne Gaviria PA-C Consults: 01/24/18 17:39 Consult to General Surgery Stat Comment: Consulting Provider: Melanie Wheatley Reason for consultation: SBO Has provider been notified: Yes 01/26/18 13:15 Consult to Discharge Planning Routine Comment: Consult to Quality Control Analyst Routine Comment: 01/27/18 08:06 Consult to PICC Line RN Routine Comment: picc line insertion please 01/27/18 08:08 Consult to Physical Therapy Evaluate & Treat Comment: Physician Instructions: Evaluate and Treat 01/29/18 11:18 Consult to Physical Therapy Evaluate & Treat Comment: do not ambulate today due to profound anemia. Physician Instructions: Evaluate and Treat 02/02/18 18:20 Consult to Discharge Planning Routine Comment: possible [facility] for PT/OT Discharge provider: Paula Poole MD Discharge Date: 02/07/18 Summary Hospital Course: Patient was evaluated in Emergency Department with a Chest Xray/ ABD/ Pelvic CT which confirmed bibasilar infiltrates and a small bowel obstruction. The patient had her right kidney removed years ago. She also reports breathing more shallow since her rib fractures from her fall. She was intially admitted for medical management however did not improve and surgery was consulted for SBO. Patient was taken to the operating room for for the above surgical procedures. She tolerated these well. Postoperatively she was admitted to the intensive care unit then transferred to the regular surgical floor. She was monitored in the intensive care unit and treated for presumed pneumonia, which was later proved to be atelectasis instead. She remained stable was transferred back to the regular floor. While there she remained afebrile and hemodynamically stable. She did have some bleeding from her incision which required several stitches with subsequent resolution. Wound is otherwise healing without evidence of infection or other complications. She had progressive postoperative anemia, however, which possibly was related to gastrointestinal hemorrhage. Nevertheless there was no identifiable obvious bleeding source. Transfusion was required to which she responded well and her hemoglobin is stable at the time of discharge. She had postoperative ileus as anticipated which subsequently resolved spontaneously. By discharge she has had return of spontaneous bowel bladder function without issue. She is also tolerating a regular diet. She did have some dysuria with evidence of urinary tract infection as above, and was started on Bactrim, to which she responded nicely but developed ALOK. She is ambulating with assistance. She requires physical therapy and occupational therapy. Because of her anemia, relative debilitation, protein malnutrition as above, and need for physical therapy she is transferred to longterm facility. Patient was going to be discharged on 02/04, however ALOK continued to get worse and patient's discharge was held until 02/07, when Bactrim therapy finally finished and Renal function started improving. 1. Acute Kidney Injury: - Likely bactrim induced - renal function is finally turning around, Cr 1.7 today - Patient is stable to go back to [facility] today but will need another BMP in 2 days to make sure renal function continues to improve 2. SBO (small bowel obstruction): - S/p Exploratory Lap January 26 and adhesion lysis - Patient is postop day 10 Today - WBC stable - Tolerating PO diet well - Oxycodone for pain control 3. Postoperative anemia: - s/p 2U PRBC - Hb 7.6, today but patient is asymptomatic - Should get H/H check in one week, and if continues to worsen, follow up with GI/PCP for further anemia work up 4. Hypertension: - BP stable - Continue Coreg scheduled and metoprolol IV PRN 5. Urinary tract infection: - Growing citrobacter - Finished the course of Bactrim Status at Discharge Functional status at discharge: uses cane/walker Overall status at discharge: patient is progressing back to baseline Time Spent with Patient Less than 30 minutes Exam Vital Signs (past 8 hours): Fraction of Inspired Oxygen 24 Oxygen Delivery Method Room Air Oxygen Flow Rate 0 Narrative Exam Narrative: Gen: NAD, AAOx3 HEENT: PERRLA BL, EOMI BL. Moist mucous membranes Neck: Supple, no LAD or JVD CV: RRR, no murmurs Resp: Breath sounds heard in all pichardo, no wheezing GI: Vertical incision wound with steven. clean. Healing well. +BS, no organomegally MSK: Normal ROM Skin: NO bruising or lesions Neuro: NFD Psych: Appropriate mood Objective Labs Result Diagrams: 02/07/18 05:00 02/07/18 05:00 Discharge Plan Discharge Plan Patient Disposition: SNF Transfer to: [facility] Under care of provider: Joel Castaneda MD Transportation: Wheelchair Consult as needed: Dental, Hearing, Mental health, Podiatry and Vision I certify the postop hospital longterm care is medically necessary on a continuing basis for any conditions for which he/ she received care during this hospitalization.: Yes The receiving facility has agreed to accept transfer and provide medical treatment.: Yes Discharge Med Rec/Prescriptions Prescriptions: New pantoprazole 40 mg tablet,delayed release (DR/EC) 40 mg PO BID Qty: 60 RF: 0 gabapentin 300 mg capsule 300 mg PO BID Qty: 60 RF: 0 oxycodone 10 mg tablet 10 mg PO Q4-6H PRN (Reason: pain) Qty: 20 RF: 0 Continue spironolactone 25 MG tablet 12.5 mg PO QDAY Qty: 0 RF: 0 simvastatin 20 MG tablet 20 mg PO HS Qty: 0 RF: 0 cholecalciferol (vitamin D3) [Vitamin D3] 2,000 UNIT tablet 1 tab PO QDAY Qty: 0 RF: 0 omega 5-pce-dyz-fish oil [Omera] 1 EACH capsule 1,200 mg PO QDAY Qty: 0 RF: 0 carvedilol [Coreg] 3.125 MG tablet 3.125 mg PO BID Qty: 0 RF: 0 pxqcqxe-hvpeedkzlpbxl-aqdzylax [Excedrin Extra Strength] 1 EACH tablet 2 tab PO Q6HP PRN (Reason: Pain, Moderate) Qty: 0 RF: 0 timolol maleate 0.5 % drops 1 drp OPHTH BID Qty: 0 RF: 0 latanoprost [Xalatan] 0.005 % drops 1 drp OPHTH HS Qty: 0 RF: 0 cetirizine 10 mg Tablet 10 mg PO DAILY RF: 0 zonisamide 100 mg Capsule 100 mg PO QPM RF: 0 duloxetine 30 mg Capsule,Delayed Release(Dr/Ec) 30 mg PO QPM RF: 0 bupropion HCl 150 mg Tablet Extended Release 12 Hr 150 mg PO BID RF: 0 aspirin 81 mg Tablet,Delayed Release (Dr/Ec) 81 mg PO DAILY RF: 0 magnesium hydroxide [Milk of Magnesia] 400 mg/5 mL Suspension 30 ml PO PRN PRN (Reason: Constipation) RF: 0 bisacodyl 10 mg Suppository 1 supp MI PRN PRN (Reason: Constipation) RF: 0 sodium phosphates [Fleet Enema] 19-7 gram/118 mL Enema 1 supp MI PRN PRN (Reason: Constipation) RF: 0 bisacodyl 5 mg Tablet 1 - 2 tab PO PRN PRN (Reason: mild to severe constipation) RF: 0 duloxetine 60 mg Capsule,Delayed Release(Dr/Ec) 60 mg PO QAM RF: 0 melatonin 10 mg Tablet 10 mg PO BEDTIME PRN (Reason: Sleep) RF: 0 erenumab-aooe [Aimovig Autoinjector] 70 mg/mL auto-injector 70 mg SUBCUT QMONTH Qty: 1 RF: 0 Discontinued omeprazole 20 mg Capsule,Delayed Release(Dr/Ec) 20 mg PO BID RF: 0 ondansetron HCl [Zofran] 4 mg Tablet 4 mg PO Q6H PRN (Reason: Nausea) RF: 0 hydrocodone-acetaminophen 5-325 mg tablet 2 tab PO Q4HR MDD 3000 mg PRN (Reason: Pain, Severe) RF: 0 No Action gabapentin 300 mg capsule 300 mg PO BID RF: 0 Follow up/Referrals: Maryanne Gaviria PA-C [Primary Care Provider] - Joel Castaneda MD [Physician] - 02/07/18 3:30 pm Discharge Health Status Brief summary of current health status: Small-bowel obstruction resolved after surgery. Bowel function now returned to baseline. Tolerating regular diet. Requires significant physical therapy and occupational therapy as well as wound monitoring for rehabilitation in longterm facility. Found to have UTI on admission. Initially treated with IV therapy but then switched to PO Bactrim, which caused her to go into ALOK. Antibiotic course is complete. ALOK is improving. Multidrug resistant organism: No MDRO Provider Discharge Instructions Diet: Diet as Tolerated Liquid consistency: Normal/Thin Food texture: Regular Activity: No lifting more than 20 lb for 2 more weeks May ambulate as desired May shower Do not soak incision in bathtub or pool for 2 weeks Cold/Heat Therapy: May apply ice packs or heating pad to incision as needed for comfort Skin/Wound/Dressing Care Report to your healthcare provider any signs of infection, such as:: chills, fever, increased pain and unusual drainage Dressing: Leave incision open to air Special Rehabilitation Services Reason for rehabilitation: Recovery r/t decondition Rehab type: Physical therapy and Occupational therapy Restrictions to mobility: None except lifting restriction as above Discharge Data Primary Care Provider: Maryanne Gaviria Attending Provider: Roz Young Admit Date/Time: 01/24/18 17:48 Discharges patient from system. Discharge Date/Time: 02/07/18 13:51
--- NOTE | 2018-03-09 16:05 | P.DS_ITS ---
History of Present Illness Date Patient Seen: 02/07/18 Time Patient Seen: 15:58 Chief complaint: L sided chest pain Narrative: 77 y/o female who was hospitalized last week following a fall for multiple rib fractures. She was discharged to [facility] where she was well until 2 days prior to admission. Patient reports she developed nausea, vomiting, and abdominal pain. She has been unable to eat for the last 2 days because of the nausea. She felt chilled but had no fever. She had a cough that was non productive. She denies any hemetemesis, bright red blood per rectum or melena. Patient has felt poorly and presented to the hospital for evaluation. Her right lower quadrant pain is dull, does not radiate is not worse with coughing and does not seem to improve with activity. Discharge Providers Date of admission: 01/24/18 17:48 Primary care physician: Maryanne Gaviria PA-C Consults: 01/24/18 17:39 Consult to General Surgery Stat Comment: Consulting Provider: Melanie Wheatley Reason for consultation: SBO Has provider been notified: Yes 01/26/18 13:15 Consult to Discharge Planning Routine Comment: Consult to [employer] Operator Routine Comment: 01/27/18 08:06 Consult to PICC Line RN Routine Comment: picc line insertion please 01/27/18 08:08 Consult to Physical Therapy Evaluate & Treat Comment: Physician Instructions: Evaluate and Treat 01/29/18 11:18 Consult to Physical Therapy Evaluate & Treat Comment: do not ambulate today due to profound anemia. Physician Instructions: Evaluate and Treat 02/02/18 18:20 Consult to Discharge Planning Routine Comment: possible [facility] for PT/OT Discharge provider: Paula Poole MD Discharge Date: 02/07/18 Summary Hospital Course: Patient was evaluated in Emergency Department with a Chest Xray / ABD/ Pelvic CT which confirmed bibasilar infiltrates and a small bowel obstruction. The patient had her right kidney removed years ago. She also reports breathing more shallow since her rib fractures from her fall. She was intially admitted for medical management however did not improve and surgery was consulted for SBO. Patient was taken to the operating room for for the above surgical procedures. She tolerated these well. Postoperatively she was admitted to the intensive care unit then transferred to the regular surgical floor. She was monitored in the intensive care unit and treated for presumed pneumonia, which was later proved to be atelectasis instead. She remained stable was transferred back to the regular floor. While there she remained afebrile and hemodynamically stable. She did have some bleeding from her incision which required several stitches with subsequent resolution. Wound is otherwise healing without evidence of infection or other complications. She had progressive postoperative anemia, however, which possibly was related to gastrointestinal hemorrhage. Nevertheless there was no identifiable obvious bleeding source. Transfusion was required to which she responded well and her hemoglobin is stable at the time of discharge. She had postoperative ileus as anticipated which subsequently resolved spontaneously. By discharge she has had return of spontaneous bowel bladder function without issue. She is also tolerating a regular diet. She did have some dysuria with evidence of urinary tract infection as above, and was started on Bactrim, to which she responded nicely but developed ALOK. She is ambulating with assistance. She requires physical therapy and occupational therapy. Because of her anemia, relative debilitation, protein malnutrition as above, and need for physical therapy she is transferred to halfway facility. Patient was going to be discharged on 02/04, however ALOK continued to get worse and patient's discharge was held until 02/07, when Bactrim therapy finally finished and Renal function started improving. 1. Acute Kidney Injury: - Likely bactrim induced - renal function is finally turning around, Cr 1.7 today - Patient is stable to go back to [facility] today but will need another BMP in 2 days to make sure renal function continues to improve 2. SBO (small bowel obstruction): - S/p Exploratory Lap January 26 and adhesion lysis - Patient is postop day 10 Today - WBC stable - Tolerating PO diet well - Oxycodone for pain control 3. Postoperative anemia: - s/p 2U PRBC - Hb 7.6, today but patient is asymptomatic - Should get H/H check in one week, and if continues to worsen, follow up with GI/PCP for further anemia work up 4. Hypertension: - BP stable - Continue Coreg scheduled and metoprolol IV PRN 5. Urinary tract infection: - Growing citrobacter - Finished the course of Bactrim Status at Discharge Functional status at discharge: uses cane/walker Overall status at discharge: patient is progressing back to baseline Time Spent with Patient Less than 30 minutes Exam Vital Signs (past 8 hours): Fraction of Inspired Oxygen 24 Oxygen Delivery Method Room Air Oxygen Flow Rate 0 Narrative Exam Narrative: Gen: NAD, AAOx3 HEENT: PERRLA BL, EOMI BL. Moist mucous membranes Neck: Supple, no LAD or JVD CV: RRR, no murmurs Resp: Breath sounds heard in all pichardo, no wheezing GI: Vertical incision wound with steven. clean. Healing well. +BS, no organomegally MSK: Normal ROM Skin: NO bruising or lesions Neuro: NFD Psych: Appropriate mood Objective Labs Result Diagrams: 02/07/18 05:00 02/07/18 05:00 Discharge Plan Discharge Plan Patient Disposition: SNF Transfer to: [facility] Under care of provider: Joel Castaneda MD Transportation: Wheelchair Consult as needed: Dental, Hearing, Mental health, Podiatry and Vision I certify the postop hospital halfway care is medically necessary on a continuing basis for any conditions for which he/ she received care during this hospitalization.: Yes The receiving facility has agreed to accept transfer and provide medical treatment.: Yes Discharge Med Rec/Prescriptions Prescriptions: New pantoprazole 40 mg tablet,delayed release (DR/EC) 40 mg PO BID Qty: 60 RF: 0 gabapentin 300 mg capsule 300 mg PO BID Qty: 60 RF: 0 oxycodone 10 mg tablet 10 mg PO Q4-6H PRN (Reason: pain) Qty: 20 RF: 0 Continue spironolactone 25 MG tablet 12.5 mg PO QDAY Qty: 0 RF: 0 simvastatin 20 MG tablet 20 mg PO HS Qty: 0 RF: 0 cholecalciferol (vitamin D3) [Vitamin D3] 2,000 UNIT tablet 1 tab PO QDAY Qty: 0 RF: 0 omega 9-hzq-dtx-fish oil [Omera] 1 EACH capsule 1,200 mg PO QDAY Qty: 0 RF: 0 carvedilol [Coreg] 3.125 MG tablet 3.125 mg PO BID Qty: 0 RF: 0 fesqzod-fpoycylqjlwua-prjbciwj [Excedrin Extra Strength] 1 EACH tablet 2 tab PO Q6HP PRN (Reason: Pain, Moderate) Qty: 0 RF: 0 timolol maleate 0.5 % drops 1 drp OPHTH BID Qty: 0 RF: 0 latanoprost [Xalatan] 0.005 % drops 1 drp OPHTH HS Qty: 0 RF: 0 cetirizine 10 mg Tablet 10 mg PO DAILY RF: 0 zonisamide 100 mg Capsule 100 mg PO QPM RF: 0 duloxetine 30 mg Capsule,Delayed Release(Dr/Ec) 30 mg PO QPM RF: 0 bupropion HCl 150 mg Tablet Extended Release 12 Hr 150 mg PO BID RF: 0 aspirin 81 mg Tablet,Delayed Release (Dr/Ec) 81 mg PO DAILY RF: 0 magnesium hydroxide [Milk of Magnesia] 400 mg/5 mL Suspension 30 ml PO PRN PRN (Reason: Constipation) RF: 0 bisacodyl 10 mg Suppository 1 supp WI PRN PRN (Reason: Constipation) RF: 0 sodium phosphates [Fleet Enema] 19-7 gram/118 mL Enema 1 supp WI PRN PRN (Reason: Constipation) RF: 0 bisacodyl 5 mg Tablet 1 - 2 tab PO PRN PRN (Reason: mild to severe constipation) RF: 0 duloxetine 60 mg Capsule,Delayed Release(Dr/Ec) 60 mg PO QAM RF: 0 melatonin 10 mg Tablet 10 mg PO BEDTIME PRN (Reason: Sleep) RF: 0 erenumab-aooe [Aimovig Autoinjector] 70 mg/mL auto-injector 70 mg SUBCUT QMONTH Qty: 1 RF: 0 Discontinued omeprazole 20 mg Capsule,Delayed Release(Dr/Ec) 20 mg PO BID RF: 0 ondansetron HCl [Zofran] 4 mg Tablet 4 mg PO Q6H PRN (Reason: Nausea) RF: 0 hydrocodone-acetaminophen 5-325 mg tablet 2 tab PO Q4HR MDD 3000 mg PRN (Reason: Pain, Severe) RF: 0 No Action gabapentin 300 mg capsule 300 mg PO BID RF: 0 Follow up/Referrals: Maryanne Gaviria PA-C [Primary Care Provider] - Joel Castaneda MD [Physician] - 02/07/18 3:30 pm Discharge Health Status Brief summary of current health status: Small-bowel obstruction resolved after surgery. Bowel function now returned to baseline. Tolerating regular diet. Requires significant physical therapy and occupational therapy as well as wound monitoring for rehabilitation in halfway facility. Found to have UTI on admission. Initially treated with IV therapy but then switched to PO Bactrim, which caused her to go into ALOK. Antibiotic course is complete. ALOK is improving. Multidrug resistant organism: No MDRO Provider Discharge Instructions Diet: Diet as Tolerated Liquid consistency: Normal/Thin Food texture: Regular Activity: No lifting more than 20 lb for 2 more weeks May ambulate as desired May shower Do not soak incision in bathtub or pool for 2 weeks Cold/Heat Therapy: May apply ice packs or heating pad to incision as needed for comfort Skin/Wound/Dressing Care Report to your healthcare provider any signs of infection, such as:: chills, fever, increased pain and unusual drainage Dressing: Leave incision open to air Special Rehabilitation Services Reason for rehabilitation: Recovery r/t decondition Rehab type: Physical therapy and Occupational therapy Restrictions to mobility: None except lifting restriction as above Discharge Data Primary Care Provider: Maryanne Gaviria Attending Provider: Roz Young Admit Date/Time: 01/24/18 17:48 Discharges patient from system. Discharge Date/Time: 02/07/18 13:51
== END 2018-02-07 13:51 | DRG 336 ==
LOC: ED 17:48 → AC 17:50 → ICU 12-26 13:54
PROVIDERS: Internal Medicine; Surgery; Admitting Provider Internal Medicine; Emergency Provider Emergency Medicine; Family Provider Physician Assistant; PCP Physician Assistant; Visit Provider Internal Medicine
PROC: 0DNB0ZZ Release Ileum, Open Approach (ICD-10-PCS; CPT 49000; principal; 2018-01-26 14:30)
DX: K56.50 Intestinal adhesions [bands], unspecified as to partial versus complete obstruction (principal); N39.0 Urinary tract infection, site not specified; L76.22 Postprocedural hemorrhage of skin and subcutaneous tissue following other procedure; D62 Acute posthemorrhagic anemia; N17.9 Acute kidney failure, unspecified; E44.0 Moderate protein-calorie malnutrition; J98.11 Atelectasis; E87.6 Hypokalemia; M80.00XD Age-related osteoporosis with current pathological fracture, unspecified site, subsequent encounter for fracture with routine healing; G89.4 Chronic pain syndrome; B96.89 Other specified bacterial agents as the cause of diseases classified elsewhere; N18.2 Chronic kidney disease, stage 2 (mild); K21.9 Gastro-esophageal reflux disease without esophagitis; Z90.5 Acquired absence of kidney; Z87.891 Personal history of nicotine dependence; F32.9 Major depressive disorder, single episode, unspecified; K56.7 Ileus, unspecified; I12.9 Hypertensive chronic kidney disease with stage 1 through stage 4 chronic kidney disease, or unspecified chronic kidney disease; Z68.25 Body mass index [BMI] 25.0-25.9, adult
CPT/HCPCS: 36415; 36430; 36569; 36591; 44005; 71045; 71046; 74018; 74019; 74022; 74177; 76770; 80048; 80053; 81001; 81003; 81015; 82550; 82570; 82962; 83605; 83735; 83880; 84100; 84133; 84145; 84300; 84484; 84540; 85014; 85018; 85025; 85651; 86140; 86850; 86900; 86901; 87040; 87077; 87086; 87186; 87797; 93005; 94760; 96361; 96365; 96367; 97110; 97116; 97162; 97530; 99222; 99284; 99285; P9016; B4189; C9113; J0131; J0330; J0743; J1170; J1650; J1940; J2405; J2543; J2704; J3010; J3370; J3480

== ENCOUNTER → 2018-07-11 12:01 | Outpatient (CLI) | payer MEDICARE, SELFPAY ==
[2018-01-24 18:59] VITALS: BMI 25.8
[2018-07-11 12:57] LABS: Add Manual Diff / Slide Review NO; Basophils Absolute Auto 100 /uL (0-100); Basophils Percent Auto 0.7 % (0-2); Eosinophils Absolute Auto 100 /uL (0-450); Eosinophils Percent Auto 1.3 % (2-4); Hematocrit 36.1 % (36-46); Hemoglobin 11.6 g/dL (12.0-16.0); Lymphocytes Absolute Auto 2100 /uL (1100-4500); Lymphocytes Percent Auto 24.6 % (25-40); Mean Corpuscular HGB Conc 32.1 % (30-36); Mean Corpuscular Hemoglobin 26.5 PG (26-34); Mean Corpuscular Volume 82.4 fL (80-100); Monocytes Absolute Auto 600 /uL (0-900); Monocytes Percent Auto 6.8 % (3-14); Neutrophils Absolute Auto 5700 /uL (1500-7000); Neutrophils Percent Auto 66.6 % (50-75); Platelet Count 378 X10^3/uL (150-400); Red Blood Cell Count 4.38 X10^6/uL (4.0-5.2); Red Cell Distribution Width 21.4 % (11.6-14.8); White Blood Cell Count 8.6 X10^3/uL (4.5-11.0)
[2018-07-11 13:15] LABS: Anisocytosis 2+
[2018-07-11 13:33] LABS: Alanine Aminotransferase 13 IU/L (9-52); Albumin 4.3 g/dL (3.5-5.0); Albumin Globulin Ratio 1.3 (1.0-2.8); Alkaline Phosphatase 73 U/L (38-126); Aspartate Aminotransferase 76 IU/L (14-36); BUN Creatinine Ratio 19.2 (6-22); Bilirubin Total 0.4 mg/dL (0.2-1.3); Blood Urea Nitrogen 25 mg/dL (7-17); Carbon Dioxide 20 mmol/L (22-32); Chloride 106 mmol/L (98-107); Estimated Glomerular Filt Rate 39.7 mL/min (>60); Globulin 3.3 g/dL (1.7-4.1); Glucose 105 mg/dL (80-110); HEMOLYSIS < 15 (0-50); Potassium 5.1 mmol/L (3.4-5.1); Sodium 138 mmol/L (137-145); Total Protein 7.6 g/dL (6.3-8.2)
[2018-07-15 11:35] LABS: Cancer Antigen 27.29 26 U/mL (< 38)
== END ==
PROVIDERS: Family Provider Physician Assistant; PCP Physician Assistant; Visit Provider Nurse Practitioner Gerontology
DX: C50.919 Malignant neoplasm of unspecified site of unspecified female breast (principal)
CPT/HCPCS: 36415; 80053; 85025; 86300

== ENCOUNTER 2018-07-14 14:30 | Outpatient (RCR) | payer MEDICARE, SELFPAY ==
[2018-01-24 18:59] VITALS: BMI 25.8
--- NOTE | 2018-04-20 11:15 | PT.OPPOC ---
Current Diagnoses Repeated falls (04/20/18) Provider Visit Care Team Role Provider Type Maryanne Gaviria PA-C Attending Provider Advanced Structural Steel Worker Family Provider Primary Care Provider Specialty: Internal Medicine Address: [address] [place] [address], [id number] Email: Plan Of Care PT-OP-T Assessment and Plan Start: 04/20/18 12:26 Freq: Status: Active Protocol: Document 04/20/18 11:15 (Rec: 04/20/18 13:23 [email or web address]) Physical Therapy Assessment Rehab Potential Rehabilitation Potential Good Evaluation Complexity Number of Personal Factors/Comorbidities 3 or More Number of Body Systems Impaired 4 or More Clinical Presentation at Evaluation Evolving Impairments Impairments Activity Tolerance Balance Functional Activities Functional Mobility Gait Pain Posture ROM Soft Tissue Mobility Strength Transfers Other Concerns Fall Risk HOUSTON score 36 Goals 4 Impairment fall recovery Usp Goal (LTG) able to perform fall recovery independently with the use of chair LTG Duration 8 weeks 3 Impairment balance Short Term Goal (STG) Increase HOUSTON score by 4 points for fall prevention STG Duration 4 weeks Usp Goal (LTG) Increase HOUSTON score by 8 points for fall prevention LTG Duration 8 weeks 2 Impairment ROM Short Term Goal (STG) increase lumbar ROM by 20 % (B UE touch both knees) to be able to pick objects from floor STG Duration 4 weeks Stuffed Casing Tier Goal (LTG) increase lumbar ROM by 40 % (B UE touch both carreon shafts) to be able to pick objects from floor LTG Duration 8 weeks 1 Impairment pain Short Term Goal (STG) reduce LBP by 2 points during bending over counter and standing position STG Duration 4 Usp Goal (LTG) reduce LBP by 2 points during bending over counter and standing position LTG Duration 8 Assessment Summary Assessment Pt is a 77yo pleasant female who had chronic back pain and hx of falls due to poor balance and overall LE weakness. Upon assessment, pt presents significant FHP and increased thoracic kyphosis. Pt shows significant loss of lumbar flexion (able to reach mid thigh during standing flexion test) and extension due to pain and poor balance, along with poor overall trunk flexor and extensor strength. These aforementioned impairments increase overall mechanical stress at her lumbar paraspinals and segments during functional activities such as standing and bend over at the counter for cooking and dish washing. Pt also presents L hip generalized weakness who shows antalgic gait and R hip drop during gait assessment without SPC. Pt's HOUSTON score is 36 with significant balance deficits during single leg stance and tandem stance. In my professional opinion, pt requries skilled physical therapy to address her balance deficits and significant loss of trunk mobilty and strength in order to perform functional activities in a safe manner and pain free. POC include balance training, trunk ROM training, Core stability and strengthening and B hip stability strengthening Physical Therapy Plan Frequency and Duration Frequency of Treatment 2x/Week Duration of Treatment 8 weeks Plan of Care Start Date 04/20/18 Plan of Care End Date 06/18/18 Therapeutic Interventions Therapeutic Interventions Balance Training Gait Training Home Exercise Program Joint Mobilizations Manual Therapy Neuromuscular Re-education Patient/Caregiver Education Self-Care/Home Management Soft Tissue Mobilization Therapeutic Activities Therapeutic Exercises Modalities Cold Pack/Ice Massage Electric Stimulation Hot Packs Next Visit Focus/Plan Next Note Type Treatment Note Next Visit Plan thoracic extension, scap retraction lumbar flexion and extension L hip stability and strengthening single leg balance, tandem stance Plan of Care Dates Plan of Care Start Date 04/20/18 Plan of Care End Date 06/18/18 Please Sign and Return: I have reviewed this Plan of Care and certify that the skilled therapy services above are required to meet the patient?s needs. Physician Signature Date Printed Name and Credentials Clinical Instructor Signature Printed Name and Credentials
--- NOTE | 2018-04-20 13:23 | PT.OIE ---
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, unilateral (Acute) Small bowel obstruction, partial (Acute) Age-related osteoporosis without current pathological fracture (Chronic) Aortic aneurysm of unspecified site, without rupture (Chronic) Chronic pain syndrome (Chronic) Essential (primary) hypertension (Chronic) GERD (gastroesophageal reflux disease) (Chronic) Headache (Chronic) Heart failure (Chronic) Hyperglycemia (Chronic) Hyperlipidemia (Chronic) Insomnia (Chronic) Major depressive disorder, recurrent, moderate (Chronic) Mixed hyperlipidemia (Chronic) 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) Sleep apnea (Chronic) Spinal stenosis of lumbar region (Chronic) Vitamin D deficiency (Chronic) History of fracture of right hip (Resolved) Past Surgical History (Last Reviewed 01/25/18 @ 19:07 by Joel Castaneda MD) History of lumpectomy (Acute) History of nephrectomy (Acute) History of repair of aneurysm of abdominal aorta using endovascular stent graft (Acute) Provider Visit Care Team Role Provider Type Maryanne Gaviria PA-C Attending Provider Advanced Freight Engineer Family Provider Primary Care Provider Specialty: Internal Medicine Address: [address] [place] [address], [facility] Email: Physical Therapy Initial Evaluation PT-OP-A Visit Information Start: 04/20/18 12:26 Freq: Status: Active Protocol: Document 04/20/18 11:15 (Rec: 04/20/18 13:23 [email or web address]) Out-Patient Physical Therapy Visit Information Visit Information Visit Type Initial Evaluation Visit Start Time 11:15 Visit Stop Time 12:05 Total Visit Minutes 50 Visit Number 1 Number of CHARACTER IMPERSONATOR Visits 0 Evaluation Information Evaluation Date 04/20/18 PT-OP-B Current Condition Start: 04/20/18 12:26 Freq: Status: Active Protocol: Document 04/20/18 11:15 (Rec: 04/20/18 13:23 [email or web address]) Current Condition History of Current Condition Onset Date 2016 Current Complaints LBP Stenosis, frequent falls, difficulty in walking, generalized weakness History of Current Condition Pt is a 77 yo pleasant female with c/o chronic LBP 7/10 since years ago along with freqent falls due to poor balance since 2015. PMH includes R ORIF 11/04/17 after a fall, bowel abdominal surgery in Jan, L multiple rib fx in Dec after a fall, stent 4years ago and R kidney removal 2 years ago. Pt admitted to SNF to receive rehab from early December after her rib injury from a fall until 03/16/18. Pt has been receiving home health PT (Radha) for overall mobility and strength training for ADLs and IADLs until last week. Pt reports she has at least 4 falls over the past year due to her sense of poor balance and her L leg often gives out . Pt also reports she was not able to recover from her last two falls who had to call industrial economist. She states her back pain started years ago who is unable to stand >5 mins or maintain in trunk flexion position more than a minute while cooking. She currently lives at a 1 story house alone with 5 AUSTYN at front but no AUSTYN at backdoor. Pt uses back entrance at all time due to poor balance. Pt also have a walk in shower with slide in shower chair and grab around the bathroom. Pt states she uses wall and counters for support to amb around the house and uses SPC for community mobility. Pt also drives for IADLs. Treatment Goals Patient/Caregiver Goals To be able to perform fall recovery independently to be able to maintain standing in pain free > 5 mins to be able to bend over at the counter for dish washing and cooking without pain Prior Functional Status Baseline Function- ADL's Independent Baseline Function- Mobility Independent Baseline Function- Gait with SPC on R side Baseline Function- Work/School unable to stand >5 mins due to pain unable to bend over at the counter for dish washing and cooking more than a minute Current Functional Impairments (Reported) Functional Limitations- Mobility/Gait stair negotiation with increased time taken and use of handrails SPC on right side use of counter and wall for support for home mobility PT-OP-C Subjective Start: 04/20/18 12:26 Freq: Status: Active Protocol: Document 04/20/18 11:15 (Rec: 04/20/18 13:23 [email or web address]) Patient Questionnaires Lower Extremity Functional Scale LEFS Score 35 LEFS Impairment 40 to 59% Impaired (Score 32- 47) OP-PT Pain Assessment Location LbP Intensity 7 Scale Used Numeric (1 - 10) Description Aching Dull Frequency Frequent Pain Aggravating Factors ADL's Activity Exercise Standing Bending Lifting Pain Alleviating Factors Sitting Massage Patient Stated Pain Goal pain free for standing and cooking PT-OP-D Balance Start: 04/20/18 12:26 Freq: Status: Active Protocol: Document 04/20/18 11:15 (Rec: 04/20/18 13:23 [email or web address]) [place] Balance Assessment Evaluation Sitting to Standing Ability Independent w/Hands Unsupported Stance Safely- 2 minutes Standing to Sitting Ability Assist, Control w/Hands Transfer Ability Safely, Hand Use Unsupported Stance- Eyes Closed Supervision, 10 seconds Unsupported Stance- Eyes Open Independent, 1 minute Reaching Forward Standing Confidently, 10 inches Pick- Up Object From Floor Supervision Look Behind Shoulder - Standing Shifts Weight Unilateral Turning 360 Degrees Turns slowly, but safely Unsupported Stance, Alternating Feet on 4 Steps w/Supervision Stair Unsupported Tandem Stance Balance Lost- Step/Stand Unilateral Leg Stance Lifts Leg/Holds > 3 secs Total Score [place] Total Score (out of 56 points) 36 [place] Impairment Rating 20 to 39% Impaired (Score 34- 44) PT-OP-G Mobility & Gait Start: 04/20/18 12:26 Freq: Status: Active Protocol: Document 04/20/18 11:15 (Rec: 04/20/18 13:23 [email or web address]) OP Gait Assessment Gait Deviations General Gait Pattern Decreased Stride Length Decreased Feet Clearance Flexed Trunk Factors Limiting Gait Function Factors Limiting Gait Function Decreased Activity Tolerance Decreased Strength Limited Range of Motion Pain Poor Balance Poor Safety Awareness Comments Gait Comments amb with SPC on right side with R hip drop PT-OP-J Posture/Palpation/Skin Start: 04/20/18 12:26 Freq: Status: Active Protocol: Document 04/20/18 11:15 (Rec: 04/20/18 13:23 [email or web address]) Posture Evaluation Position Standing Evaluation View Lateral Head/C-Spine Posture Forward Head T-Spine Posture Increased Kyphosis L-Spine Posture Flattened Shoulder Posture (L) Rounded (R) Rounded (L) Forward (R) Forward Scapula Posture (L) Protracted (R) Protracted Comments Posture Comments significant thoracic kyphosis PT-OP-K Range of Motion Start: 04/20/18 12:26 Freq: Status: Active Protocol: Document 04/20/18 11:15 (Rec: 04/20/18 13:23 [email or web address]) Lumbar Spine Range of Motion Lumbar Spine Percentage Flexion 20 Extension 40 Rotation Left 60 Rotation Right 60 Lateral Flexion Left 60 Lateral Flexion Right 60 ROM Limitations Soft Tissue Tightness Muscle Weakness Pain PT-OP-M Strength Start: 04/20/18 12:26 Freq: Status: Active Protocol: Document 04/20/18 11:15 (Rec: 04/20/18 13:23 [email or web address]) Trunk Strength Trunk Manual Muscle Testing Testing Position Sitting Flexion 3+ Fair+ Extension 3+ Fair+ Rotation Left 4 Good Rotation Right 4 Good Lateral Flexion Left 4 Good Lateral Flexion Right 4 Good Hip Strength Hip Manual Muscle Testing Right Flexion (L2) 4 Good Extension (S1) 4 Good Abduction 4 Good Adduction 4 Good External Rotation 4 Good Internal Rotation 4 Good Left Flexion (L2) 4- Good- Extension (S1) 3+ Fair+ Abduction 3+ Fair+ Adduction 4- Good- External Rotation 4- Good- Internal Rotation 4- Good- PT-OP-Q Treatments Start: 04/20/18 12:26 Freq: Status: Active Protocol: Document 04/20/18 11:15 (Rec: 04/20/18 13:23 [email or web address]) Therapeutic Exercises Sitting Exercises sit to stand Side bilateral Reps/Minutes 8 reps Comments with UE support at counter trunk flexion Sitting Exercise Name with legs extended Side bilateral Comments floor touch thoracic ext Sitting Exercise Name arms behind head Side bilateral Equipment Used chair with backseat Reps/Minutes 10 x 2 Standing Exercises single leg stance Side bilateral Reps/Minutes 3-5 secs hold Comments UE support at counter as needed PT-OP-T Assessment and Plan Start: 04/20/18 12:26 Freq: Status: Active Protocol: Document 04/20/18 11:15 (Rec: 04/20/18 13:23 [email or web address]) Physical Therapy Assessment Rehab Potential Rehabilitation Potential Good Evaluation Complexity Number of Personal Factors/Comorbidities 3 or More Number of Body Systems Impaired 4 or More Clinical Presentation at Evaluation Evolving Impairments Impairments Activity Tolerance Balance Functional Activities Functional Mobility Gait Pain Posture ROM Soft Tissue Mobility Strength Transfers Other Concerns Fall Risk HOUSTON score 36 Goals 4 Impairment fall recovery Fci Goal (LTG) able to perform fall recovery independently with the use of chair LTG Duration 8 weeks 3 Impairment balance Short Term Goal (STG) Increase HOUSTON score by 4 points for fall prevention STG Duration 4 weeks Women'S Studies Professor Goal (LTG) Increase HOUSTON score by 8 points for fall prevention LTG Duration 8 weeks 2 Impairment ROM Short Term Goal (STG) increase lumbar ROM by 20 % (B UE touch both knees) to be able to pick objects from floor STG Duration 4 weeks Fci Goal (LTG) increase lumbar ROM by 40 % (B UE touch both carreon shafts) to be able to pick objects from floor LTG Duration 8 weeks 1 Impairment pain Short Term Goal (STG) reduce LBP by 2 points during bending over counter and standing position STG Duration 4 Women'S Studies Professor Goal (LTG) reduce LBP by 2 points during bending over counter and standing position LTG Duration 8 Assessment Summary Assessment Pt is a 77yo pleasant female who had chronic back pain and hx of falls due to poor balance and overall LE weakness. Upon assessment, pt presents significant FHP and increased thoracic kyphosis. Pt shows significant loss of lumbar flexion (able to reach mid thigh during standing flexion test) and extension due to pain and poor balance, along with poor overall trunk flexor and extensor strength. These aforementioned impairments increase overall mechanical stress at her lumbar paraspinals and segments during functional activities such as standing and bend over at the counter for cooking and dish washing. Pt also presents L hip generalized weakness who shows antalgic gait and R hip drop during gait assessment without SPC. Pt's HOUSTON score is 36 with significant balance deficits during single leg stance and tandem stance. In my professional opinion, pt requries skilled physical therapy to address her balance deficits and significant loss of trunk mobilty and strength in order to perform functional activities in a safe manner and pain free. POC include balance training, trunk ROM training, Core stability and strengthening and B hip stability strengthening Physical Therapy Plan Frequency and Duration Frequency of Treatment 2x/Week Duration of Treatment 8 weeks Plan of Care Start Date 04/20/18 Plan of Care End Date 06/18/18 Therapeutic Interventions Therapeutic Interventions Balance Training Gait Training Home Exercise Program Joint Mobilizations Manual Therapy Neuromuscular Re-education Patient/Caregiver Education Self-Care/Home Management Soft Tissue Mobilization Therapeutic Activities Therapeutic Exercises Modalities Cold Pack/Ice Massage Electric Stimulation Hot Packs Next Visit Focus/Plan Next Note Type Treatment Note Next Visit Plan thoracic extension, scap retraction lumbar flexion and extension L hip stability and strengthening single leg balance, tandem stance
--- NOTE | 2018-04-22 15:15 | PT.OTN ---
Current Diagnoses Repeated falls (04/22/18) Physical Therapy Treatment Note PT-OP-A Visit Information Start: 04/20/18 12:26 Freq: Status: Active Protocol: Document 04/22/18 15:15 RCC (Rec: 04/22/18 16:34 RCC [email or web address]) Out-Patient Physical Therapy Visit Information Visit Information Visit Type Treatment Note Visit Start Time 14:30 Visit Stop Time 15:21 Total Visit Minutes 51 Visit Number 2 Number of VISUAL EDUCATION DIRECTOR Visits 0 Evaluation Information Evaluation Date 04/20/18 PT-OP-B Current Condition Start: 04/20/18 12:26 Freq: Status: Active Protocol: Document 04/20/18 11:15 HH (Rec: 04/20/18 13:23 HH [email or web address]) Current Condition History of Current Condition Onset Date 2015 Current Complaints LBP Stenosis, frequent falls, difficulty in walking, generalized weakness History of Current Condition Pt is a 77 yo pleasant female with 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 PMH includes R ORIF 11/04/17 after a fall, bowel abdominal surgery in Jan, L multiple rib fx in Dec after a fall, stent 4years ago and R kidney removal 2 years ago. Pt admitted to SNF to receive rehab from early December after her rib injury from a fall until 03/16/18. Pt has been receiving home health PT (Radha) for overall mobility and strength training for ADLs and IADLs until last week. Pt reports she has at least 4 falls over the past year due to her sense of poor balance and her L leg often gives out . Pt also reports she was not able to recover from her last two falls who had to call screen operator. She states her back pain started years ago who is unable to stand >5 mins or maintain in trunk flexion position more than a minute while cooking. She currently lives at a 1 story house alone with 5 AUSTYN at front but no AUSTYN at backdoor. Pt uses back entrance at all time due to poor balance. Pt also have a walk in shower with slide in shower chair and grab around the bathroom. Pt states she uses wall and counters for support to amb around the house and uses SPC for community mobility. Pt also drives for IADLs. Treatment Goals Patient/Caregiver Goals To be able to perform fall recovery independently to be able to maintain standing in pain free > 5 mins to be able to bend over at the counter for dish washing and cooking without pain Prior Functional Status Baseline Function- ADL's Independent Baseline Function- Mobility Independent Baseline Function- Gait with SPC on R side Baseline Function- Work/School unable to stand >5 mins due to pain unable to bend over at the counter for dish washing and cooking more than a minute Current Functional Impairments (Reported) Functional Limitations- Mobility/Gait stair negotiation with increased time taken and use of handrails SPC on right side use of counter and wall for support for home mobility PT-OP-C Subjective Start: 04/20/18 12:26 Freq: Status: Active Protocol: Document 04/22/18 15:15 RCC (Rec: 04/22/18 16:34 RCC [email or web address]) OP-PT Subjective Patient Comments Patient Comments Pt reports compliance with HEP . Her back is still a little painful today but no new complaints. PT-OP-D Balance Start: 04/20/18 12:26 Freq: Status: Active Protocol: Document 04/20/18 11:15 HH (Rec: 04/20/18 13:23 HH [email or web address]) [place] Balance Assessment Evaluation Sitting to Standing Ability Independent w/Hands Unsupported Stance Safely- 2 minutes Standing to Sitting Ability Assist, Control w/Hands Transfer Ability Safely, Hand Use Unsupported Stance- Eyes Closed Supervision, 10 seconds Unsupported Stance- Eyes Open Independent, 1 minute Reaching Forward Standing Confidently, 10 inches Pick- Up Object From Floor Supervision Look Behind Shoulder - Standing Shifts Weight Unilateral Turning 360 Degrees Turns slowly, but safely Unsupported Stance, Alternating Feet on 4 Steps w/Supervision Stair Unsupported Tandem Stance Balance Lost- Step/Stand Unilateral Leg Stance Lifts Leg/Holds > 3 secs Total Score [place] Total Score (out of 56 points) 36 [place] Impairment Rating 20 to 39% Impaired (Score 34- 44) PT-OP-G Mobility & Gait Start: 04/20/18 12:26 Freq: Status: Active Protocol: Document 04/20/18 11:15 HH (Rec: 04/20/18 13:23 [email or web address]) OP Gait Assessment Gait Deviations General Gait Pattern Decreased Stride Length Decreased Feet Clearance Flexed Trunk Factors Limiting Gait Function Factors Limiting Gait Function Decreased Activity Tolerance Decreased Strength Limited Range of Motion Pain Poor Balance Poor Safety Awareness Comments Gait Comments amb with SPC on right side with R hip drop PT-OP-J Posture/Palpation/Skin Start: 04/20/18 12:26 Freq: Status: Active Protocol: Document 04/20/18 11:15 HH (Rec: 04/20/18 13:23 HH [email or web address]) Posture Evaluation Position Standing Evaluation View Lateral Head/C-Spine Posture Forward Head T-Spine Posture Increased Kyphosis L-Spine Posture Flattened Shoulder Posture (L) Rounded (R) Rounded (L) Forward (R) Forward Scapula Posture (L) Protracted (R) Protracted Comments Posture Comments significant thoracic kyphosis PT-OP-K Range of Motion Start: 04/20/18 12:26 Freq: Status: Active Protocol: Document 04/20/18 11:15 HH (Rec: 04/20/18 13:23 HH [email or web address]) Lumbar Spine Range of Motion Lumbar Spine Percentage Flexion 20 Extension 40 Rotation Left 60 Rotation Right 60 Lateral Flexion Left 60 Lateral Flexion Right 60 ROM Limitations Soft Tissue Tightness Muscle Weakness Pain PT-OP-M Strength Start: 04/20/18 12:26 Freq: Status: Active Protocol: Document 04/20/18 11:15 HH (Rec: 04/20/18 13:23 [email or web address]) Trunk Strength Trunk Manual Muscle Testing Testing Position Sitting Flexion 3+ Fair+ Extension 3+ Fair+ Rotation Left 4 Good Rotation Right 4 Good Lateral Flexion Left 4 Good Lateral Flexion Right 4 Good Hip Strength Hip Manual Muscle Testing Right Flexion (L2) 4 Good Extension (S1) 4 Good Abduction 4 Good Adduction 4 Good External Rotation 4 Good Internal Rotation 4 Good Left Flexion (L2) 4- Good- Extension (S1) 3+ Fair+ Abduction 3+ Fair+ Adduction 4- Good- External Rotation 4- Good- Internal Rotation 4- Good- PT-OP-Q Treatments Start: 04/20/18 12:26 Freq: Status: Active Protocol: Document 04/22/18 15:15 RCC (Rec: 04/22/18 16:34 RCC [email or web address]) Cardio Equipment Recumbent Elliptical (Biodex) Duration (Minutes) 6 Resistance 1 Gym Equipment Shuttle Recovery Unilateral Squats Resistance 25 Shuttle Recovery Platform Stable Reps/Time 2x12 Bilateral Squats Resistance 50 Shuttle Recovery Platform Stable Reps/Time 2x12 Therapeutic Exercises Sitting Exercises sit to stand Side bilateral Reps/Minutes 8 reps Comments hands on thighs (from chair, no rail) Standing Exercises scapular retraction/rows Side bilateral Resistance L1 Reps/Minutes x10 Comments CGA standing balance Neuro Re-Education Treatment Balance Activities tandem walking Details forward Surface firm Equipment // bars Reps/Duration 4 laps tandem standing Surface firm Equipment // bars SLS Surface firm Equipment // bars Other Activities Hurdles Details firm, on blue foam with 2 lb Susy Reps/Duration 4 laps each Comments 1 foot per step PT-OP-R Modalities Start: 04/20/18 12:26 Freq: Status: Active Protocol: Document 04/22/18 15:15 RCC (Rec: 04/22/18 16:35 RCC [email or web address]) Hot Pack/Cold Pack Treatment Hot Pack Location low and upper back Patient Position Hooklying Treatment Duration (minutes) 10 Comments extra layer on lumbar- pt reported that she may need an additional layer next session but less discomfort after heat PT-OP-T Assessment and Plan Start: 04/20/18 12:26 Freq: Status: Active Protocol: Document 04/22/18 15:15 RCC (Rec: 04/22/18 16:34 RCC [email or web address]) Physical Therapy Assessment Assessment Summary Assessment Pt able to perform tandem walking, but does require mild to moderate UE support. She fatigued quickly with hurdles when having 2 lb ankle weights on each LE. Pt required cuing for upper trapezius inhibition during row/scapular retraction, and requires CGA when performing this in standing. Physical Therapy Plan Frequency and Duration Frequency of Treatment 2x/Week Duration of Treatment 8 weeks Plan of Care Start Date 04/20/18 Plan of Care End Date 06/18/18 Next Visit Focus/Plan Next Note Type Treatment Note Next Visit Plan postural awareness, progress LE strength and balance ( Shuttle Balance).
--- NOTE | 2018-04-29 16:42 | PT.OTN ---
Current Diagnoses Repeated falls (04/29/18) Physical Therapy Treatment Note PT-OP-A Visit Information Start: 04/20/18 12:26 Freq: Status: Active Protocol: Document 04/29/18 15:15 DCW (Rec: 04/29/18 16:31 DCW [id number]) Out-Patient Physical Therapy Visit Information Visit Information Visit Type Treatment Note Visit Start Time 15:15 Visit Stop Time 16:00 Total Visit Minutes 45 Visit Number 3 Number of DEV MANAGER Visits 0 Evaluation Information Evaluation Date 04/20/18 PT-OP-B Current Condition Start: 04/20/18 12:26 Freq: Status: Active Protocol: Document 04/20/18 11:15 HH (Rec: 04/20/18 13:23 HH [email or web address]) Current Condition History of Current Condition Onset Date 2015 Current Complaints LBP Stenosis, frequent falls, difficulty in walking, generalized weakness History of Current Condition Pt is a 77 yo pleasant female with 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 PMH includes R ORIF 11/04/17 after a fall, bowel abdominal surgery in Jan, L multiple rib fx in Dec after a fall, stent 4years ago and R kidney removal 2 years ago. Pt admitted to SNF to receive rehab from early December after her rib injury from a fall until 03/16/18. Pt has been receiving home health PT (Radha) for overall mobility and strength training for ADLs and IADLs until last week. Pt reports she has at least 4 falls over the past year due to her sense of poor balance and her L leg often gives out . Pt also reports she was not able to recover from her last two falls who had to call pump runner. She states her back pain started years ago who is unable to stand >5 mins or maintain in trunk flexion position more than a minute while cooking. She currently lives at a 1 story house alone with 5 AUSTYN at front but no AUSTYN at backdoor. Pt uses back entrance at all time due to poor balance. Pt also have a walk in shower with slide in shower chair and grab around the bathroom. Pt states she uses wall and counters for support to amb around the house and uses SPC for community mobility. Pt also drives for IADLs. Treatment Goals Patient/Caregiver Goals To be able to perform fall recovery independently to be able to maintain standing in pain free > 5 mins to be able to bend over at the counter for dish washing and cooking without pain Prior Functional Status Baseline Function- ADL's Independent Baseline Function- Mobility Independent Baseline Function- Gait with SPC on R side Baseline Function- Work/School unable to stand >5 mins due to pain unable to bend over at the counter for dish washing and cooking more than a minute Current Functional Impairments (Reported) Functional Limitations- Mobility/Gait stair negotiation with increased time taken and use of handrails SPC on right side use of counter and wall for support for home mobility PT-OP-C Subjective Start: 04/20/18 12:26 Freq: Status: Active Protocol: Document 04/29/18 15:15 DCW (Rec: 04/29/18 16:31 DCW [id number]) OP-PT Subjective Patient Comments Patient Comments Pt notes that other than a headache earlier today, she's not really having any pain today. PT-OP-D Balance Start: 04/20/18 12:26 Freq: Status: Active Protocol: Document 04/20/18 11:15 HH (Rec: 04/20/18 13:23 HH [email or web address]) [place] Balance Assessment Evaluation Sitting to Standing Ability Independent w/Hands Unsupported Stance Safely- 2 minutes Standing to Sitting Ability Assist, Control w/Hands Transfer Ability Safely, Hand Use Unsupported Stance- Eyes Closed Supervision, 10 seconds Unsupported Stance- Eyes Open Independent, 1 minute Reaching Forward Standing Confidently, 10 inches Pick- Up Object From Floor Supervision Look Behind Shoulder - Standing Shifts Weight Unilateral Turning 360 Degrees Turns slowly, but safely Unsupported Stance, Alternating Feet on 4 Steps w/Supervision Stair Unsupported Tandem Stance Balance Lost- Step/Stand Unilateral Leg Stance Lifts Leg/Holds > 3 secs Total Score [place] Total Score (out of 56 points) 36 [place] Impairment Rating 20 to 39% Impaired (Score 34- 44) PT-OP-G Mobility & Gait Start: 04/20/18 12:26 Freq: Status: Active Protocol: Document 04/20/18 11:15 HH (Rec: 04/20/18 13:23 HH [email or web address]) OP Gait Assessment Gait Deviations General Gait Pattern Decreased Stride Length Decreased Feet Clearance Flexed Trunk Factors Limiting Gait Function Factors Limiting Gait Function Decreased Activity Tolerance Decreased Strength Limited Range of Motion Pain Poor Balance Poor Safety Awareness Comments Gait Comments amb with SPC on right side with R hip drop PT-OP-J Posture/Palpation/Skin Start: 04/20/18 12:26 Freq: Status: Active Protocol: Document 04/20/18 11:15 HH (Rec: 04/20/18 13:23 HH [email or web address]) Posture Evaluation Position Standing Evaluation View Lateral Head/C-Spine Posture Forward Head T-Spine Posture Increased Kyphosis L-Spine Posture Flattened Shoulder Posture (L) Rounded (R) Rounded (L) Forward (R) Forward Scapula Posture (L) Protracted (R) Protracted Comments Posture Comments significant thoracic kyphosis PT-OP-K Range of Motion Start: 04/20/18 12:26 Freq: Status: Active Protocol: Document 04/20/18 11:15 HH (Rec: 04/20/18 13:23 HH [email or web address]) Lumbar Spine Range of Motion Lumbar Spine Percentage Flexion 20 Extension 40 Rotation Left 60 Rotation Right 60 Lateral Flexion Left 60 Lateral Flexion Right 60 ROM Limitations Soft Tissue Tightness Muscle Weakness Pain PT-OP-M Strength Start: 04/20/18 12:26 Freq: Status: Active Protocol: Document 04/20/18 11:15 HH (Rec: 04/20/18 13:23 [email or web address]) Trunk Strength Trunk Manual Muscle Testing Testing Position Sitting Flexion 3+ Fair+ Extension 3+ Fair+ Rotation Left 4 Good Rotation Right 4 Good Lateral Flexion Left 4 Good Lateral Flexion Right 4 Good Hip Strength Hip Manual Muscle Testing Right Flexion (L2) 4 Good Extension (S1) 4 Good Abduction 4 Good Adduction 4 Good External Rotation 4 Good Internal Rotation 4 Good Left Flexion (L2) 4- Good- Extension (S1) 3+ Fair+ Abduction 3+ Fair+ Adduction 4- Good- External Rotation 4- Good- Internal Rotation 4- Good- PT-OP-O Vestibular Start: 04/20/18 12:26 Freq: Status: Active Protocol: Document 04/29/18 15:15 DCW (Rec: 04/29/18 16:32 DCW [id number]) Vestibular Assessment Screening Tests Vestibular Artery Screen Negative Visual Testing Smooth Pursuits Horizontal Negative Smooth Pursuits Vertical Negative Saccades Horizontal Negative Positional Testing [place]-Hallpike Positive Right Negative Left Upbeating < 60 Seconds PT-OP-Q Treatments Start: 04/20/18 12:26 Freq: Status: Active Protocol: Document 04/29/18 15:15 DCW (Rec: 04/29/18 16:31 DCW [id number]) Cardio Equipment Recumbent Elliptical (Biodex) Duration (Minutes) 6 Resistance 3 Seat Position 7 Gym Equipment Shuttle Recovery Unilateral Squats Resistance 37# Shuttle Recovery Platform Stable Reps/Time 2x12 Bilateral Squats Resistance 50# Shuttle Recovery Platform Stable Reps/Time 2x12 Therapeutic Exercises Sitting Exercises sit to stand Side bilateral Reps/Minutes 8 reps Comments hands on thighs (from chair, no rail) Neuro Re-Education Treatment Balance Activities tandem walking Details forward Surface firm Equipment // bars Reps/Duration 4 laps tandem standing Surface firm Equipment // bars SLS Surface firm Equipment // bars Canalithic Repositioning BPPV Treatment Evaristo Affected Canal(s) Right Posterior Reps x1 PT-OP-R Modalities Start: 04/20/18 12:26 Freq: Status: Active Protocol: Document 04/22/18 15:15 RCC (Rec: 04/22/18 16:35 RCC [email or web address]) Hot Pack/Cold Pack Treatment Hot Pack Location low and upper back Patient Position Hooklying Treatment Duration (minutes) 10 Comments extra layer on lumbar- pt reported that she may need an additional layer next session but less discomfort after heat PT-OP-T Assessment and Plan Start: 04/20/18 12:26 Freq: Status: Active Protocol: Document 04/29/18 15:15 DCW (Rec: 04/29/18 16:31 DCW [id number]) Physical Therapy Assessment Impairments Impairments Activity Tolerance Balance Functional Activities Functional Mobility Gait Pain Posture ROM Soft Tissue Mobility Strength Transfers Goals 5 Impairment [place]-Hallpike Short Term Goal (STG) Negative right hallpike STG Duration 4 weeks 4 Impairment fall recovery Financial Planning Assistant Goal (LTG) able to perform fall recovery independently with the use of chair LTG Duration 8 weeks 3 Impairment balance Short Term Goal (STG) Increase [place] score by 4 points for fall prevention STG Duration 4 weeks Financial Planning Assistant Goal (LTG) Increase [place] score by 8 points for fall prevention LTG Duration 8 weeks 2 Impairment ROM Short Term Goal (STG) increase lumbar ROM by 20 % (B UE touch both knees) to be able to pick objects from floor STG Duration 4 weeks Senior Care Goal (LTG) increase lumbar ROM by 40 % (B UE touch both carreon shafts) to be able to pick objects from floor LTG Duration 8 weeks 1 Impairment pain Short Term Goal (STG) reduce LBP by 2 points during bending over counter and standing position STG Duration 4 Senior Care Goal (LTG) reduce LBP by 2 points during bending over counter and standing position LTG Duration 8 Assessment Summary Assessment Pt's complaints during her PT session were suggestive of possible BPPV. Upon testing, pt complained of vertigo and displayed up-beating, torsional nystagmus lasting approximately 10 seconds, suggestive of posterior-canal BPPV, canalithisis-type. A right-sided Evaristo maneuver was performed, and pt displayed symptoms in the first and third positions, suggestive of a successful treatment. Pt should be reassessed at a later date for effectiveness of BPPV treatment. Physical Therapy Plan Frequency and Duration Frequency of Treatment 2x/Week Duration of Treatment 8 weeks Plan of Care Start Date 04/20/18 Plan of Care End Date 06/18/18 Next Visit Focus/Plan Next Note Type Treatment Note Next Visit Plan postural awareness, progress LE strength and balance ( Shuttle Balance).
--- NOTE | 2018-05-03 16:35 | PT.OTN ---
Current Diagnoses Repeated falls (05/03/18) Physical Therapy Treatment Note PT-OP-A Visit Information Start: 04/20/18 12:26 Freq: Status: Active Protocol: Document 05/03/18 15:15 HH (Rec: 05/03/18 16:35 HH [email or web address]) Out-Patient Physical Therapy Visit Information Visit Information Visit Type Treatment Note Visit Start Time 15:15 Visit Stop Time 16:00 Total Visit Minutes 45 Visit Number 4 Number of CONTRACTS OFFICER Visits 0 PT-OP-B Current Condition Start: 04/20/18 12:26 Freq: Status: Active Protocol: Document 04/20/18 11:15 HH (Rec: 04/20/18 13:23 HH [email or web address]) Current Condition History of Current Condition Onset Date 2015 Current Complaints LBP Stenosis, frequent falls, difficulty in walking, generalized weakness History of Current Condition Pt is a 77 yo pleasant female with 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 PMH includes R ORIF 11/04/17 after a fall, bowel abdominal surgery in Jan, L multiple rib fx in Dec after a fall, stent 4years ago and R kidney removal 2 years ago. Pt admitted to SNF to receive rehab from early December after her rib injury from a fall until 03/16/18. Pt has been receiving home health PT (Radha) for overall mobility and strength training for ADLs and IADLs until last week. Pt reports she has at least 4 falls over the past year due to her sense of poor balance and her L leg often gives out . Pt also reports she was not able to recover from her last two falls who had to call non destructive testing scientist. She states her back pain started years ago who is unable to stand >5 mins or maintain in trunk flexion position more than a minute while cooking. She currently lives at a 1 story house alone with 5 AUSTYN at front but no AUSTYN at backdoor. Pt uses back entrance at all time due to poor balance. Pt also have a walk in shower with slide in shower chair and grab around the bathroom. Pt states she uses wall and counters for support to amb around the house and uses SPC for community mobility. Pt also drives for IADLs. Treatment Goals Patient/Caregiver Goals To be able to perform fall recovery independently to be able to maintain standing in pain free > 5 mins to be able to bend over at the counter for dish washing and cooking without pain Prior Functional Status Baseline Function- ADL's Independent Baseline Function- Mobility Independent Baseline Function- Gait with SPC on R side Baseline Function- Work/School unable to stand >5 mins due to pain unable to bend over at the counter for dish washing and cooking more than a minute Current Functional Impairments (Reported) Functional Limitations- Mobility/Gait stair negotiation with increased time taken and use of handrails SPC on right side use of counter and wall for support for home mobility PT-OP-C Subjective Start: 04/20/18 12:26 Freq: Status: Active Protocol: Document 05/03/18 15:15 HH (Rec: 05/03/18 16:35 [email or web address]) OP-PT Subjective Patient Comments Patient Comments Pt reports her dizziness has resolved since last visit after Evaristo maneuver. She denies any vertigo during rolling in bed. Pt also states she is more aware of her increased kyphotic posture. She noticed her pain tends to go away if she stays upright and scap retraction. Patient Reported Progress Improving PT-OP-D Balance Start: 04/20/18 12:26 Freq: Status: Active Protocol: Document 04/20/18 11:15 HH (Rec: 04/20/18 13:23 [email or web address]) [place] Balance Assessment Evaluation Sitting to Standing Ability Independent w/Hands Unsupported Stance Safely- 2 minutes Standing to Sitting Ability Assist, Control w/Hands Transfer Ability Safely, Hand Use Unsupported Stance- Eyes Closed Supervision, 10 seconds Unsupported Stance- Eyes Open Independent, 1 minute Reaching Forward Standing Confidently, 10 inches Pick- Up Object From Floor Supervision Look Behind Shoulder - Standing Shifts Weight Unilateral Turning 360 Degrees Turns slowly, but safely Unsupported Stance, Alternating Feet on 4 Steps w/Supervision Stair Unsupported Tandem Stance Balance Lost- Step/Stand Unilateral Leg Stance Lifts Leg/Holds > 3 secs Total Score [place] Total Score (out of 56 points) 36 [place] Impairment Rating 20 to 39% Impaired (Score 34- 44) PT-OP-G Mobility & Gait Start: 04/20/18 12:26 Freq: Status: Active Protocol: Document 04/20/18 11:15 HH (Rec: 04/20/18 13:23 [email or web address]) OP Gait Assessment Gait Deviations General Gait Pattern Decreased Stride Length Decreased Feet Clearance Flexed Trunk Factors Limiting Gait Function Factors Limiting Gait Function Decreased Activity Tolerance Decreased Strength Limited Range of Motion Pain Poor Balance Poor Safety Awareness Comments Gait Comments amb with SPC on right side with R hip drop PT-OP-J Posture/Palpation/Skin Start: 04/20/18 12:26 Freq: Status: Active Protocol: Document 04/20/18 11:15 HH (Rec: 04/20/18 13:23 HH [email or web address]) Posture Evaluation Position Standing Evaluation View Lateral Head/C-Spine Posture Forward Head T-Spine Posture Increased Kyphosis L-Spine Posture Flattened Shoulder Posture (L) Rounded (R) Rounded (L) Forward (R) Forward Scapula Posture (L) Protracted (R) Protracted Comments Posture Comments significant thoracic kyphosis PT-OP-K Range of Motion Start: 04/20/18 12:26 Freq: Status: Active Protocol: Document 04/20/18 11:15 HH (Rec: 04/20/18 13:23 HH [email or web address]) Lumbar Spine Range of Motion Lumbar Spine Percentage Flexion 20 Extension 40 Rotation Left 60 Rotation Right 60 Lateral Flexion Left 60 Lateral Flexion Right 60 ROM Limitations Soft Tissue Tightness Muscle Weakness Pain PT-OP-M Strength Start: 04/20/18 12:26 Freq: Status: Active Protocol: Document 04/20/18 11:15 HH (Rec: 04/20/18 13:23 [email or web address]) Trunk Strength Trunk Manual Muscle Testing Testing Position Sitting Flexion 3+ Fair+ Extension 3+ Fair+ Rotation Left 4 Good Rotation Right 4 Good Lateral Flexion Left 4 Good Lateral Flexion Right 4 Good Hip Strength Hip Manual Muscle Testing Right Flexion (L2) 4 Good Extension (S1) 4 Good Abduction 4 Good Adduction 4 Good External Rotation 4 Good Internal Rotation 4 Good Left Flexion (L2) 4- Good- Extension (S1) 3+ Fair+ Abduction 3+ Fair+ Adduction 4- Good- External Rotation 4- Good- Internal Rotation 4- Good- PT-OP-O Vestibular Start: 04/20/18 12:26 Freq: Status: Active Protocol: Document 04/29/18 15:15 DCW (Rec: 04/29/18 16:32 DCW [id number]) Vestibular Assessment Screening Tests Vestibular Artery Screen Negative Visual Testing Smooth Pursuits Horizontal Negative Smooth Pursuits Vertical Negative Saccades Horizontal Negative Positional Testing [place]-Hallpike Positive Right Negative Left Upbeating < 60 Seconds PT-OP-Q Treatments Start: 04/20/18 12:26 Freq: Status: Active Protocol: Document 05/03/18 15:15 HH (Rec: 05/03/18 16:35 HH [email or web address]) Cardio Equipment Recumbent Stepper (Sci-Fit) Duration (Minutes) 3 Resistance 3 Therapeutic Exercises Sitting Exercises trunk flexion Sitting Exercise Name with legs extended Side bilateral Comments floor touch thoracic ext Sitting Exercise Name with shoulder flexion Side bilateral Equipment Used against therapy ball Reps/Minutes 10 x 2 Standing Exercises standing hip hinge against wall Standing Exercise Name hip hinge against wall Reps/Minutes 5 x 3 Comments with scap retraction OH shoulder flexion with hip hinge Standing Exercise Name to increase thoracic extension Equipment Used UE support on staircase grab bar Comments elbow extened with hip hinge scapular retraction/rows Side bilateral Resistance L1 Reps/Minutes x10 Comments CGA standing balance Manual Therapy Treatment Soft Tissue Mobilization lumbar paraspinals Mobilization Type Strumming Sustained Pressure Trigger Point Release Intensity/Depth Moderate Body Position Sitting PT-OP-R Modalities Start: 04/20/18 12:26 Freq: Status: Active Protocol: Document 04/22/18 15:15 RCC (Rec: 04/22/18 16:35 RCC [email or web address]) Hot Pack/Cold Pack Treatment Hot Pack Location low and upper back Patient Position Hooklying Treatment Duration (minutes) 10 Comments extra layer on lumbar- pt reported that she may need an additional layer next session but less discomfort after heat PT-OP-T Assessment and Plan Start: 04/20/18 12:26 Freq: Status: Active Protocol: Document 05/03/18 15:15 HH (Rec: 05/03/18 16:35 HH [email or web address]) Physical Therapy Assessment Assessment Summary Assessment Pt's previous vertigo symptom has resolved after last visit. Pt also demonstrates improved understanding of body mechanics and resting posture. Pt states her pain goes away with scap retraction with neutral spine during amb. Pt laurel tx well today with improved segmental control. Physical Therapy Plan Next Visit Focus/Plan Next Note Type Treatment Note Next Visit Plan postural buddhist (to increase thoracic extension and lumbar flexion.) cont cardio/ LE strengthening as laurel review hip hinge pattern and HEP with pt
--- NOTE | 2018-05-12 10:30 | PT.OTN ---
Current Diagnoses Repeated falls (05/12/18) Physical Therapy Treatment Note PT-OP-A Visit Information Start: 04/20/18 12:26 Freq: Status: Active Protocol: Document 05/12/18 09:45 DCW (Rec: 05/12/18 10:30 DCW [id number]) Out-Patient Physical Therapy Visit Information Visit Information Visit Type Treatment Note Visit Start Time 09:45 Visit Stop Time 10:35 Total Visit Minutes 50 Visit Number 5 Number of GAS PLANT DISPATCHER Visits 0 Evaluation Information Evaluation Date 04/20/18 PT-OP-B Current Condition Start: 04/20/18 12:26 Freq: Status: Active Protocol: Document 04/20/18 11:15 HH (Rec: 04/20/18 13:23 HH [email or web address]) Current Condition History of Current Condition Onset Date 2015 Current Complaints LBP Stenosis, frequent falls, difficulty in walking, generalized weakness History of Current Condition Pt is a 77 yo pleasant female with 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 PMH includes R ORIF 11/04/17 after a fall, bowel abdominal surgery in Jan, L multiple rib fx in Dec after a fall, stent 4years ago and R kidney removal 2 years ago. Pt admitted to SNF to receive rehab from early December after her rib injury from a fall until 03/16/18. Pt has been receiving home health PT ([facility]) for overall mobility and strength training for ADLs and IADLs until last week. Pt reports she has at least 4 falls over the past year due to her sense of poor balance and her L leg often gives out . Pt also reports she was not able to recover from her last two falls who had to call human resource professional. She states her back pain started years ago who is unable to stand >5 mins or maintain in trunk flexion position more than a minute while cooking. She currently lives at a 1 story house alone with 5 AUSTYN at front but no AUSTYN at backdoor. Pt uses back entrance at all time due to poor balance. Pt also have a walk in shower with slide in shower chair and grab around the bathroom. Pt states she uses wall and counters for support to amb around the house and uses SPC for community mobility. Pt also drives for IADLs. Treatment Goals Patient/Caregiver Goals To be able to perform fall recovery independently to be able to maintain standing in pain free > 5 mins to be able to bend over at the counter for dish washing and cooking without pain Prior Functional Status Baseline Function- ADL's Independent Baseline Function- Mobility Independent Baseline Function- Gait with SPC on R side Baseline Function- Work/School unable to stand >5 mins due to pain unable to bend over at the counter for dish washing and cooking more than a minute Current Functional Impairments (Reported) Functional Limitations- Mobility/Gait stair negotiation with increased time taken and use of handrails SPC on right side use of counter and wall for support for home mobility PT-OP-C Subjective Start: 04/20/18 12:26 Freq: Status: Active Protocol: Document 05/12/18 09:45 DCW (Rec: 05/12/18 10:30 DCW [id number]) OP-PT Subjective Patient Comments Patient Comments Pt reports she still has no dizziness since her Evaristo maneuver. Pt notes that overall, she believes she is getting better, but her legs still feel pretty weak. PT-OP-D Balance Start: 04/20/18 12:26 Freq: Status: Active Protocol: Document 04/20/18 11:15 HH (Rec: 04/20/18 13:23 HH [email or web address]) [place] Balance Assessment Evaluation Sitting to Standing Ability Independent w/Hands Unsupported Stance Safely- 2 minutes Standing to Sitting Ability Assist, Control w/Hands Transfer Ability Safely, Hand Use Unsupported Stance- Eyes Closed Supervision, 10 seconds Unsupported Stance- Eyes Open Independent, 1 minute Reaching Forward Standing Confidently, 10 inches Pick- Up Object From Floor Supervision Look Behind Shoulder - Standing Shifts Weight Unilateral Turning 360 Degrees Turns slowly, but safely Unsupported Stance, Alternating Feet on 4 Steps w/Supervision Stair Unsupported Tandem Stance Balance Lost- Step/Stand Unilateral Leg Stance Lifts Leg/Holds > 3 secs Total Score [place] Total Score (out of 56 points) 36 [place] Impairment Rating 20 to 39% Impaired (Score 34- 44) PT-OP-G Mobility & Gait Start: 04/20/18 12:26 Freq: Status: Active Protocol: Document 04/20/18 11:15 HH (Rec: 04/20/18 13:23 HH [email or web address]) OP Gait Assessment Gait Deviations General Gait Pattern Decreased Stride Length Decreased Feet Clearance Flexed Trunk Factors Limiting Gait Function Factors Limiting Gait Function Decreased Activity Tolerance Decreased Strength Limited Range of Motion Pain Poor Balance Poor Safety Awareness Comments Gait Comments amb with SPC on right side with R hip drop PT-OP-J Posture/Palpation/Skin Start: 04/20/18 12:26 Freq: Status: Active Protocol: Document 04/20/18 11:15 HH (Rec: 04/20/18 13:23 HH [email or web address]) Posture Evaluation Position Standing Evaluation View Lateral Head/C-Spine Posture Forward Head T-Spine Posture Increased Kyphosis L-Spine Posture Flattened Shoulder Posture (L) Rounded (R) Rounded (L) Forward (R) Forward Scapula Posture (L) Protracted (R) Protracted Comments Posture Comments significant thoracic kyphosis PT-OP-K Range of Motion Start: 04/20/18 12:26 Freq: Status: Active Protocol: Document 04/20/18 11:15 HH (Rec: 04/20/18 13:23 HH [email or web address]) Lumbar Spine Range of Motion Lumbar Spine Percentage Flexion 20 Extension 40 Rotation Left 60 Rotation Right 60 Lateral Flexion Left 60 Lateral Flexion Right 60 ROM Limitations Soft Tissue Tightness Muscle Weakness Pain PT-OP-M Strength Start: 04/20/18 12:26 Freq: Status: Active Protocol: Document 04/20/18 11:15 HH (Rec: 04/20/18 13:23 [email or web address]) Trunk Strength Trunk Manual Muscle Testing Testing Position Sitting Flexion 3+ Fair+ Extension 3+ Fair+ Rotation Left 4 Good Rotation Right 4 Good Lateral Flexion Left 4 Good Lateral Flexion Right 4 Good Hip Strength Hip Manual Muscle Testing Right Flexion (L2) 4 Good Extension (S1) 4 Good Abduction 4 Good Adduction 4 Good External Rotation 4 Good Internal Rotation 4 Good Left Flexion (L2) 4- Good- Extension (S1) 3+ Fair+ Abduction 3+ Fair+ Adduction 4- Good- External Rotation 4- Good- Internal Rotation 4- Good- PT-OP-O Vestibular Start: 04/20/18 12:26 Freq: Status: Active Protocol: Document 04/29/18 15:15 DCW (Rec: 04/29/18 16:32 DCW [id number]) Vestibular Assessment Screening Tests Vestibular Artery Screen Negative Visual Testing Smooth Pursuits Horizontal Negative Smooth Pursuits Vertical Negative Saccades Horizontal Negative Positional Testing [place]-Hallpike Positive Right Negative Left Upbeating < 60 Seconds PT-OP-Q Treatments Start: 04/20/18 12:26 Freq: Status: Active Protocol: Document 05/12/18 09:45 DCW (Rec: 05/12/18 10:30 DCW [id number]) Cardio Equipment Recumbent Bicycle Duration (Minutes) 5 Resistance 3 Seat Position 5 Gym Equipment Shuttle Recovery Unilateral Squats Resistance 37# Shuttle Recovery Platform Stable Reps/Time 2x12 Bilateral Squats Resistance 50# Shuttle Recovery Platform Stable Reps/Time 2x12 Therapeutic Exercises Other Exercises Resisted Forward/Retro-walking Other Exercise Name Resisted Forward/Retro-walking Side bilateral Resistance Yellow Equipment Used T-band Resisted Side-stepping Other Exercise Name Resisted Side-stepping Side bilateral Resistance Yellow Equipment Used T-band Neuro Re-Education Treatment Balance Activities tandem walking Details forward/backward Surface firm Equipment // bars Reps/Duration 4 laps tandem standing Details head turns Surface firm Equipment // bars SLS Surface firm Equipment // bars PT-OP-R Modalities Start: 04/20/18 12:26 Freq: Status: Active Protocol: Document 05/12/18 09:45 DCW (Rec: 05/12/18 10:30 DCW [id number]) Hot Pack/Cold Pack Treatment Hot Pack Location low and upper back Patient Position Sitting Treatment Duration (minutes) 10 PT-OP-T Assessment and Plan Start: 04/20/18 12:26 Freq: Status: Active Protocol: Document 05/12/18 09:45 DCW (Rec: 05/12/18 10:30 DCW [id number]) Physical Therapy Assessment Impairments Impairments Activity Tolerance Balance Functional Activities Functional Mobility Gait Pain Posture ROM Soft Tissue Mobility Strength Transfers Goals 5 Impairment [place]-Hallpike Short Term Goal (STG) Negative right hallpike STG Duration 4 weeks 4 Impairment fall recovery [place] Goal (LTG) able to perform fall recovery independently with the use of chair LTG Duration 8 weeks 3 Impairment balance Short Term Goal (STG) Increase [place] score by 4 points for fall prevention STG Duration 4 weeks Assisted Goal (LTG) Increase [place] score by 8 points for fall prevention LTG Duration 8 weeks 2 Impairment ROM Short Term Goal (STG) increase lumbar ROM by 20 % (B UE touch both knees) to be able to pick objects from floor STG Duration 4 weeks Assisted Goal (LTG) increase lumbar ROM by 40 % (B UE touch both carreon shafts) to be able to pick objects from floor LTG Duration 8 weeks 1 Impairment pain Short Term Goal (STG) reduce LBP by 2 points during bending over counter and standing position STG Duration 4 [place] Goal (LTG) reduce LBP by 2 points during bending over counter and standing position LTG Duration 8 Assessment Summary Assessment Pt making appropriate improvement with balance and leg strength, will schedule more appointments today to continue progress. Physical Therapy Plan Frequency and Duration Frequency of Treatment 2x/Week Duration of Treatment 8 weeks Plan of Care Start Date 04/20/18 Plan of Care End Date 06/18/18 Next Visit Focus/Plan Next Note Type Treatment Note Next Visit Plan postural awareness, progress LE strength and balance ( Shuttle Balance).
--- NOTE | 2018-05-19 12:05 | PT.OTN ---
Current Diagnoses Repeated falls (05/19/18) Physical Therapy Treatment Note PT-OP-A Visit Information Start: 04/20/18 12:26 Freq: Status: Active Protocol: Document 05/19/18 12:05 RCC (Rec: 05/19/18 13:42 RCC [email or web address]) Out-Patient Physical Therapy Visit Information Visit Information Visit Type Treatment Note Visit Start Time 12:05 Visit Stop Time 12:45 Total Visit Minutes 40 Visit Number 6 Number of OPEN SHANK COVERER Visits 0 Evaluation Information Evaluation Date 04/20/18 Precautions Precautions pt requested to have assistance back to car today. 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 PMH includes R ORIF 11/04/17 after a fall, bowel abdominal surgery in Jan, L multiple rib fx in Dec after a fall, stent 4years ago and R kidney removal 2 years ago. Pt admitted to SNF to receive rehab from early December after her rib injury from a fall until 03/16/18. Pt has been receiving home health PT ([facility]) for overall mobility and strength training for ADLs and IADLs until last week. Pt reports she has at least 4 falls over the past year due to her sense of poor balance and her L leg often gives out . Pt also reports she was not able to recover from her last two falls who had to call sandwich wrapper. She states her back pain started years ago who is unable to stand >5 mins or maintain in trunk flexion position more than a minute while cooking. She currently lives at a 1 story house alone with 5 AUSTYN at front but no AUSTYN at backdoor. Pt uses back entrance at all time due to poor balance. Pt also have a walk in shower with slide in shower chair and grab around the bathroom. Pt states she uses wall and counters for support to amb around the house and uses SPC for community mobility. Pt also drives for IADLs. Treatment Goals Patient/Caregiver Goals To be able to perform fall recovery independently to be able to maintain standing in pain free > 5 mins to be able to bend over at the counter for dish washing and cooking without pain Prior Functional Status Baseline Function- ADL's Independent Baseline Function- Mobility Independent Baseline Function- Gait with SPC on R side Baseline Function- Work/School unable to stand >5 mins due to pain unable to bend over at the counter for dish washing and cooking more than a minute Current Functional Impairments (Reported) Functional Limitations- Mobility/Gait stair negotiation with increased time taken and use of handrails SPC on right side use of counter and wall for support for home mobility PT-OP-C Subjective Start: 04/20/18 12:26 Freq: Status: Active Protocol: Document 05/19/18 12:05 RCC (Rec: 05/19/18 13:42 RCC [email or web address]) OP-PT Subjective Patient Comments Patient Comments Pt staets her dizziness is better but still comes occasionally more so lightheadedness. She is doing her HEP. PT-OP-D Balance Start: 04/20/18 12:26 Freq: Status: Active Protocol: Document 04/20/18 11:15 HH (Rec: 04/20/18 13:23 HH [email or web address]) [place] Balance Assessment Evaluation Sitting to Standing Ability Independent w/Hands Unsupported Stance Safely- 2 minutes Standing to Sitting Ability Assist, Control w/Hands Transfer Ability Safely, Hand Use Unsupported Stance- Eyes Closed Supervision, 10 seconds Unsupported Stance- Eyes Open Independent, 1 minute Reaching Forward Standing Confidently, 10 inches Pick- Up Object From Floor Supervision Look Behind Shoulder - Standing Shifts Weight Unilateral Turning 360 Degrees Turns slowly, but safely Unsupported Stance, Alternating Feet on 4 Steps w/Supervision Stair Unsupported Tandem Stance Balance Lost- Step/Stand Unilateral Leg Stance Lifts Leg/Holds > 3 secs Total Score [place] Total Score (out of 56 points) 36 [place] Impairment Rating 20 to 39% Impaired (Score 34- 44) PT-OP-G Mobility & Gait Start: 04/20/18 12:26 Freq: Status: Active Protocol: Document 04/20/18 11:15 HH (Rec: 04/20/18 13:23 HH [email or web address]) OP Gait Assessment Gait Deviations General Gait Pattern Decreased Stride Length Decreased Feet Clearance Flexed Trunk Factors Limiting Gait Function Factors Limiting Gait Function Decreased Activity Tolerance Decreased Strength Limited Range of Motion Pain Poor Balance Poor Safety Awareness Comments Gait Comments amb with SPC on right side with R hip drop PT-OP-J Posture/Palpation/Skin Start: 04/20/18 12:26 Freq: Status: Active Protocol: Document 04/20/18 11:15 HH (Rec: 04/20/18 13:23 HH [email or web address]) Posture Evaluation Position Standing Evaluation View Lateral Head/C-Spine Posture Forward Head T-Spine Posture Increased Kyphosis L-Spine Posture Flattened Shoulder Posture (L) Rounded (R) Rounded (L) Forward (R) Forward Scapula Posture (L) Protracted (R) Protracted Comments Posture Comments significant thoracic kyphosis PT-OP-K Range of Motion Start: 04/20/18 12:26 Freq: Status: Active Protocol: Document 04/20/18 11:15 HH (Rec: 04/20/18 13:23 HH [email or web address]) Lumbar Spine Range of Motion Lumbar Spine Percentage Flexion 20 Extension 40 Rotation Left 60 Rotation Right 60 Lateral Flexion Left 60 Lateral Flexion Right 60 ROM Limitations Soft Tissue Tightness Muscle Weakness Pain PT-OP-M Strength Start: 04/20/18 12:26 Freq: Status: Active Protocol: Document 04/20/18 11:15 HH (Rec: 04/20/18 13:23 [email or web address]) Trunk Strength Trunk Manual Muscle Testing Testing Position Sitting Flexion 3+ Fair+ Extension 3+ Fair+ Rotation Left 4 Good Rotation Right 4 Good Lateral Flexion Left 4 Good Lateral Flexion Right 4 Good Hip Strength Hip Manual Muscle Testing Right Flexion (L2) 4 Good Extension (S1) 4 Good Abduction 4 Good Adduction 4 Good External Rotation 4 Good Internal Rotation 4 Good Left Flexion (L2) 4- Good- Extension (S1) 3+ Fair+ Abduction 3+ Fair+ Adduction 4- Good- External Rotation 4- Good- Internal Rotation 4- Good- PT-OP-O Vestibular Start: 04/20/18 12:26 Freq: Status: Active Protocol: Document 04/29/18 15:15 DCW (Rec: 04/29/18 16:32 DCW [id number]) Vestibular Assessment Screening Tests Vestibular Artery Screen Negative Visual Testing Smooth Pursuits Horizontal Negative Smooth Pursuits Vertical Negative Saccades Horizontal Negative Positional Testing [place]-Hallpike Positive Right Negative Left Upbeating < 60 Seconds PT-OP-Q Treatments Start: 04/20/18 12:26 Freq: Status: Active Protocol: Document 05/19/18 12:05 RCC (Rec: 05/19/18 13:42 RCC [email or web address]) Cardio Equipment Recumbent Elliptical (Biodex) Duration (Minutes) 6 Resistance 5 Seat Position 7 Gym Equipment Shuttle Recovery Unilateral Squats Resistance 37# Shuttle Recovery Platform Stable Reps/Time 2x12 Bilateral Squats Resistance 50# Shuttle Recovery Platform Stable Reps/Time 2x12 Therapeutic Exercises Other Exercises Resisted Forward/Retro-walking Other Exercise Name Resisted Forward/Retro-walking Side bilateral Resistance Yellow Equipment Used T-band Resisted Side-stepping Other Exercise Name Resisted Side-stepping Side bilateral Resistance Yellow Equipment Used T-band Neuro Re-Education Treatment Balance Activities DL standing Details [id number] foam and tilt board A/P and lateral Equipment // bars tandem walking Details forward/backward Surface firm Equipment // bars Reps/Duration 4 laps tandem standing Details head turns Surface firm Equipment // bars PT-OP-R Modalities Start: 04/20/18 12:26 Freq: Status: Active Protocol: Document 05/12/18 09:45 DCW (Rec: 05/12/18 10:30 DCW [id number]) Hot Pack/Cold Pack Treatment Hot Pack Location low and upper back Patient Position Sitting Treatment Duration (minutes) 10 PT-OP-T Assessment and Plan Start: 04/20/18 12:26 Freq: Status: Active Protocol: Document 05/19/18 12:05 RCC (Rec: 05/19/18 13:42 RCC [email or web address]) Physical Therapy Assessment Assessment Summary Assessment Pt requested assistance walking back to her car today for increased confidence although she denied having any pain or increased weakness. Pt overall tolerated head turns without dizziness, but does use UE support occasionally for balance training activities. Physical Therapy Plan Frequency and Duration Frequency of Treatment 2x/Week Duration of Treatment 8 weeks Plan of Care Start Date 04/20/18 Plan of Care End Date 06/18/18 Next Visit Focus/Plan Next Note Type Treatment Note Next Visit Plan progress balance (tilt board vs Shuttle Balance), LE strength- sit<->stand.
--- NOTE | 2018-05-24 16:05 | PT.OTN ---
Current Diagnoses Repeated falls (05/24/18) Physical Therapy Treatment Note PT-OP-A Visit Information Start: 04/20/18 12:26 Freq: Status: Active Protocol: Document 05/24/18 15:49 SA (Rec: 05/24/18 16:04 SA [email or web address]) Out-Patient Physical Therapy Visit Information Visit Information Visit Type Treatment Note Visit Start Time 13:45 Visit Stop Time 14:29 Total Visit Minutes 44 Visit Number 7 Number of GARBAGE COLLECTOR DRIVER Visits 1 PT-OP-B Current Condition Start: 04/20/18 12:26 Freq: Status: Active Protocol: Document 04/20/18 11:15 HH (Rec: 04/20/18 13:23 HH [email or web address]) Current Condition History of Current Condition Onset Date 2015 Current Complaints LBP Stenosis, frequent falls, difficulty in walking, generalized weakness History of Current Condition Pt is a 77 yo pleasant female with 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 PMH includes R ORIF 11/04/17 after a fall, bowel abdominal surgery in Jan, L multiple rib fx in Dec after a fall, stent 4years ago and R kidney removal 2 years ago. Pt admitted to SNF to receive rehab from early December after her rib injury from a fall until 03/16/18. Pt has been receiving home health PT ([facility]) for overall mobility and strength training for ADLs and IADLs until last week. Pt reports she has at least 4 falls over the past year due to her sense of poor balance and her L leg often gives out . Pt also reports she was not able to recover from her last two falls who had to call batterboard setter. She states her back pain started years ago who is unable to stand >5 mins or maintain in trunk flexion position more than a minute while cooking. She currently lives at a 1 story house alone with 5 AUSTYN at front but no AUSTYN at backdoor. Pt uses back entrance at all time due to poor balance. Pt also have a walk in shower with slide in shower chair and grab around the bathroom. Pt states she uses wall and counters for support to amb around the house and uses SPC for community mobility. Pt also drives for IADLs. Treatment Goals Patient/Caregiver Goals To be able to perform fall recovery independently to be able to maintain standing in pain free > 5 mins to be able to bend over at the counter for dish washing and cooking without pain Prior Functional Status Baseline Function- ADL's Independent Baseline Function- Mobility Independent Baseline Function- Gait with SPC on R side Baseline Function- Work/School unable to stand >5 mins due to pain unable to bend over at the counter for dish washing and cooking more than a minute Current Functional Impairments (Reported) Functional Limitations- Mobility/Gait stair negotiation with increased time taken and use of handrails SPC on right side use of counter and wall for support for home mobility PT-OP-C Subjective Start: 04/20/18 12:26 Freq: Status: Active Protocol: Document 05/24/18 15:49 SA (Rec: 05/24/18 16:04 SA [email or web address]) OP-PT Subjective Patient Comments Patient Comments Pt reports having a fall last after PT and going to grocery store, describes fall as her L knee giving out and denies dizziness at the time. She was in her living room at the time of fall, used her life alert to have title processor come help her up. PT-OP-D Balance Start: 04/20/18 12:26 Freq: Status: Active Protocol: Document 04/20/18 11:15 HH (Rec: 04/20/18 13:23 HH [email or web address]) [place] Balance Assessment Evaluation Sitting to Standing Ability Independent w/Hands Unsupported Stance Safely- 2 minutes Standing to Sitting Ability Assist, Control w/Hands Transfer Ability Safely, Hand Use Unsupported Stance- Eyes Closed Supervision, 10 seconds Unsupported Stance- Eyes Open Independent, 1 minute Reaching Forward Standing Confidently, 10 inches Pick- Up Object From Floor Supervision Look Behind Shoulder - Standing Shifts Weight Unilateral Turning 360 Degrees Turns slowly, but safely Unsupported Stance, Alternating Feet on 4 Steps w/Supervision Stair Unsupported Tandem Stance Balance Lost- Step/Stand Unilateral Leg Stance Lifts Leg/Holds > 3 secs Total Score [place] Total Score (out of 56 points) 36 [place]elles Impairment Rating 20 to 39% Impaired (Score 34- 44) PT-OP-G Mobility & Gait Start: 04/20/18 12:26 Freq: Status: Active Protocol: Document 04/20/18 11:15 HH (Rec: 04/20/18 13:23 HH [email or web address]) OP Gait Assessment Gait Deviations General Gait Pattern Decreased Stride Length Decreased Feet Clearance Flexed Trunk Factors Limiting Gait Function Factors Limiting Gait Function Decreased Activity Tolerance Decreased Strength Limited Range of Motion Pain Poor Balance Poor Safety Awareness Comments Gait Comments amb with SPC on right side with R hip drop PT-OP-J Posture/Palpation/Skin Start: 04/20/18 12:26 Freq: Status: Active Protocol: Document 04/20/18 11:15 HH (Rec: 04/20/18 13:23 HH [email or web address]) Posture Evaluation Position Standing Evaluation View Lateral Head/C-Spine Posture Forward Head T-Spine Posture Increased Kyphosis L-Spine Posture Flattened Shoulder Posture (L) Rounded (R) Rounded (L) Forward (R) Forward Scapula Posture (L) Protracted (R) Protracted Comments Posture Comments significant thoracic kyphosis PT-OP-K Range of Motion Start: 04/20/18 12:26 Freq: Status: Active Protocol: Document 04/20/18 11:15 HH (Rec: 04/20/18 13:23 HH [email or web address]) Lumbar Spine Range of Motion Lumbar Spine Percentage Flexion 20 Extension 40 Rotation Left 60 Rotation Right 60 Lateral Flexion Left 60 Lateral Flexion Right 60 ROM Limitations Soft Tissue Tightness Muscle Weakness Pain PT-OP-M Strength Start: 04/20/18 12:26 Freq: Status: Active Protocol: Document 04/20/18 11:15 HH (Rec: 04/20/18 13:23 [email or web address]) Trunk Strength Trunk Manual Muscle Testing Testing Position Sitting Flexion 3+ Fair+ Extension 3+ Fair+ Rotation Left 4 Good Rotation Right 4 Good Lateral Flexion Left 4 Good Lateral Flexion Right 4 Good Hip Strength Hip Manual Muscle Testing Right Flexion (L2) 4 Good Extension (S1) 4 Good Abduction 4 Good Adduction 4 Good External Rotation 4 Good Internal Rotation 4 Good Left Flexion (L2) 4- Good- Extension (S1) 3+ Fair+ Abduction 3+ Fair+ Adduction 4- Good- External Rotation 4- Good- Internal Rotation 4- Good- PT-OP-O Vestibular Start: 04/20/18 12:26 Freq: Status: Active Protocol: Document 04/29/18 15:15 DCW (Rec: 04/29/18 16:32 DCW [id number]) Vestibular Assessment Screening Tests Vestibular Artery Screen Negative Visual Testing Smooth Pursuits Horizontal Negative Smooth Pursuits Vertical Negative Saccades Horizontal Negative Positional Testing Kamala-Hallpike Positive Right Negative Left Upbeating < 60 Seconds PT-OP-Q Treatments Start: 04/20/18 12:26 Freq: Status: Active Protocol: Document 05/24/18 15:49 SA (Rec: 05/24/18 16:04 SA [email or web address]) Cardio Equipment Recumbent Elliptical (Biodex) Duration (Minutes) 6 Resistance 5 Seat Position 7 Therapeutic Exercises Standing Exercises Hip ABD and hip EXT Side bilateral Resistance YEllow TB Reps/Minutes 15 x each Comments in //bars standing hip hinge against wall Standing Exercise Name hip hinge against wall Reps/Minutes 5 x 3 Comments with scap retraction Other Exercises Resisted Forward/Retro-walking Other Exercise Name Resisted Forward/Retro-walking Side bilateral Resistance Yellow Equipment Used T-band Reps/Minutes 4 lengths of //bars Resisted Side-stepping Other Exercise Name Resisted Side-stepping Side bilateral Resistance Yellow Equipment Used T-band Reps/Minutes 4 lengths of //bars Neuro Re-Education Treatment Balance Activities Rocker board Surface firm Equipment ant/posterior Reps/Duration 2 min Comments in // bars tandem walking Details forward/backward Surface firm Equipment // bars Reps/Duration 4 laps SLS Surface firm Equipment // bars Self-Care/Home Management Treatment Education Patient Education Body Mechanics Safety Other Education Fall recovery education. Strategies for getting up into quadriped position after a GLF. Visual/verbal demonstration. Pt declined attempting on mat, stating that she was too tired after exercises. PT-OP-R Modalities Start: 04/20/18 12:26 Freq: Status: Active Protocol: Document 05/12/18 09:45 DCW (Rec: 05/12/18 10:30 DCW [id number]) Hot Pack/Cold Pack Treatment Hot Pack Location low and upper back Patient Position Sitting Treatment Duration (minutes) 10 PT-OP-T Assessment and Plan Start: 04/20/18 12:26 Freq: Status: Active Protocol: Document 05/24/18 15:49 SA (Rec: 05/24/18 16:04 SA [email or web address]) Physical Therapy Assessment Assessment Summary Assessment Pt reports recent fall, review of fall recovery with patient , she does live alone but has life alert. Pt denies pain with exercise but noted that L hip had been sore after fall but was better today. Also educated on activity planning during the day, pt stated that the last time she had a fall prior to this one she had also had PT and a trip to grocery store that day. Possible fatigue related and she may want to plan grocery store trips on non-PT days, If able. Physical Therapy Plan Next Visit Focus/Plan Next Note Type Treatment Note Next Visit Plan progress balance (tilt board vs Shuttle Balance), LE strength- sit<->stand.
--- NOTE | 2018-06-21 15:17 | PT.OTN ---
Current Diagnoses Repeated falls (06/21/18) Physical Therapy Treatment Note PT-OP-A Visit Information Start: 04/20/18 12:26 Freq: Status: Active Protocol: Document 06/21/18 14:30 DCW (Rec: 06/21/18 15:17 DCW [id number]) Out-Patient Physical Therapy Visit Information Visit Information Visit Type Progress Note Visit Start Time 14:30 Visit Stop Time 15:15 Total Visit Minutes 45 Visit Number 8 Number of HIGH SCHOOL BAND DIRECTOR Visits 0 Evaluation Information Evaluation Date 04/20/18 PT-OP-B Current Condition Start: 04/20/18 12:26 Freq: Status: Active Protocol: Document 04/20/18 11:15 HH (Rec: 04/20/18 13:23 HH [email or web address]) Current Condition History of Current Condition Onset Date 2015 Current Complaints LBP Stenosis, frequent falls, difficulty in walking, generalized weakness History of Current Condition Pt is a 77 yo pleasant female with 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 PMH includes R ORIF 11/04/17 after a fall, bowel abdominal surgery in Jan, L multiple rib fx in Dec after a fall, stent 4years ago and R kidney removal 2 years ago. Pt admitted to SNF to receive rehab from early December after her rib injury from a fall until 03/16/18. Pt has been receiving home health PT ([facility]) for overall mobility and strength training for ADLs and IADLs until last week. Pt reports she has at least 4 falls over the past year due to her sense of poor balance and her L leg often gives out . Pt also reports she was not able to recover from her last two falls who had to call mender knit goods. She states her back pain started years ago who is unable to stand >5 mins or maintain in trunk flexion position more than a minute while cooking. She currently lives at a 1 story house alone with 5 AUSTYN at front but no AUSTYN at backdoor. Pt uses back entrance at all time due to poor balance. Pt also have a walk in shower with slide in shower chair and grab around the bathroom. Pt states she uses wall and counters for support to amb around the house and uses SPC for community mobility. Pt also drives for IADLs. Treatment Goals Patient/Caregiver Goals To be able to perform fall recovery independently to be able to maintain standing in pain free > 5 mins to be able to bend over at the counter for dish washing and cooking without pain Prior Functional Status Baseline Function- ADL's Independent Baseline Function- Mobility Independent Baseline Function- Gait with SPC on R side Baseline Function- Work/School unable to stand >5 mins due to pain unable to bend over at the counter for dish washing and cooking more than a minute Current Functional Impairments (Reported) Functional Limitations- Mobility/Gait stair negotiation with increased time taken and use of handrails SPC on right side use of counter and wall for support for home mobility PT-OP-C Subjective Start: 04/20/18 12:26 Freq: Status: Active Protocol: Document 06/21/18 14:30 DCW (Rec: 06/21/18 15:17 DCW [id number]) OP-PT Subjective Patient Comments Patient Comments Pt returns to therapy today following a three week vacation to her kid's house in [place]. Pt notes that shortly after getting to [place], she began having BPPV symptoms again. PT-OP-D Balance Start: 04/20/18 12:26 Freq: Status: Active Protocol: Document 06/21/18 14:30 DCW (Rec: 06/21/18 15:03 DCW [id number]) Balance Tests [place] Balance Test [place] Balance Test Score 46/56 [place] Impairment Rating 1 to 19% Impaired (Score 45-55 ) [place] Balance Assessment Evaluation Sitting to Standing Ability Independent w/out Hands Unsupported Stance Safely- 2 minutes Sitting Unsupported, Feet on Floor Safely- 2 minutes Standing to Sitting Ability Safely, Minimal Hand Use Transfer Ability Safely, Minimal Hand Use Unsupported Stance- Eyes Closed Safely, 10 seconds Unsupported Stance- Eyes Open Independent, 1 minute Reaching Forward Standing Safely, 5 inches Pick- Up Object From Floor Independent/Safe Look Behind Shoulder - Standing Shifts Weight Well Turning 360 Degrees Turns slowly, but safely Unsupported Stance, Alternating Feet on 4 Steps w/Supervision Stair Unsupported Tandem Stance Small Step- 30 seconds Unilateral Leg Stance Lifts Leg/Unable to Hold Total Score [place] Total Score (out of 56 points) 46 [place] Impairment Rating 1 to 19% Impaired (Score 45-55 ) PT-OP-G Mobility & Gait Start: 04/20/18 12:26 Freq: Status: Active Protocol: Document 04/20/18 11:15 HH (Rec: 04/20/18 13:23 HH [email or web address]) OP Gait Assessment Gait Deviations General Gait Pattern Decreased Stride Length Decreased Feet Clearance Flexed Trunk Factors Limiting Gait Function Factors Limiting Gait Function Decreased Activity Tolerance Decreased Strength Limited Range of Motion Pain Poor Balance Poor Safety Awareness Comments Gait Comments amb with SPC on right side with R hip drop PT-OP-J Posture/Palpation/Skin Start: 04/20/18 12:26 Freq: Status: Active Protocol: Document 06/21/18 14:30 DCW (Rec: 06/21/18 15:03 DCW [id number]) Posture Evaluation Position Standing Evaluation View Lateral Head/C-Spine Posture Forward Head T-Spine Posture Increased Kyphosis L-Spine Posture Flattened Shoulder Posture (L) Rounded (R) Rounded (L) Forward (R) Forward Scapula Posture (L) Protracted (R) Protracted Comments Posture Comments significant thoracic kyphosis PT-OP-K Range of Motion Start: 04/20/18 12:26 Freq: Status: Active Protocol: Document 04/20/18 11:15 (Rec: 04/20/18 13:23 [email or web address]) Lumbar Spine Range of Motion Lumbar Spine Percentage Flexion 20 Extension 40 Rotation Left 60 Rotation Right 60 Lateral Flexion Left 60 Lateral Flexion Right 60 ROM Limitations Soft Tissue Tightness Muscle Weakness Pain PT-OP-M Strength Start: 04/20/18 12:26 Freq: Status: Active Protocol: Document 06/21/18 14:30 DCW (Rec: 06/21/18 15:03 DCW [id number]) Trunk Strength Trunk Manual Muscle Testing Testing Position Sitting Flexion 4- Good- Extension 4 Good Rotation Left 4 Good Rotation Right 4 Good Lateral Flexion Left 4 Good Lateral Flexion Right 4 Good Hip Strength Hip Manual Muscle Testing Right Flexion (L2) 4- Good- Abduction 4- Good- Adduction 4 Good Left Flexion (L2) 4 Good Abduction 4- Good- Adduction 4 Good External Rotation 4 Good Internal Rotation 4 Good PT-OP-O Vestibular Start: 04/20/18 12:26 Freq: Status: Active Protocol: Document 06/21/18 14:30 DCW (Rec: 06/21/18 15:03 DCW [id number]) Vestibular Assessment Positional Testing [place]-Hallpike Positive Left Positive Right Upbeating < 60 Seconds PT-OP-Q Treatments Start: 04/20/18 12:26 Freq: Status: Active Protocol: Document 06/21/18 14:30 DCW (Rec: 06/21/18 15:17 DCW [id number]) Cardio Equipment Recumbent Elliptical (BiodSeatID) Duration (Minutes) 8 Resistance 5 Seat Position 9 Manual Therapy Treatment Other Other Manual Treatments Positional testing Neuro Re-Education Treatment Balance Activities [place] Testing Comments 46/56 Canalithic Repositioning BPPV Treatment Evaristo Affected Canal(s) Right Posterior Reps x2 PT-OP-R Modalities Start: 04/20/18 12:26 Freq: Status: Active Protocol: Document 05/12/18 09:45 DCW (Rec: 05/12/18 10:30 DCW [id number]) Hot Pack/Cold Pack Treatment Hot Pack Location low and upper back Patient Position Sitting Treatment Duration (minutes) 10 PT-OP-T Assessment and Plan Start: 04/20/18 12:26 Freq: Status: Active Protocol: Document 06/21/18 14:30 DCW (Rec: 06/21/18 15:17 DCW [id number]) Physical Therapy Assessment Impairments Impairments Activity Tolerance Balance Functional Activities Functional Mobility Gait Pain Posture ROM Soft Tissue Mobility Strength Transfers Vestibular Goals 5 Impairment Kamala-Hallpike Short Term Goal (STG) Negative right hallpike STG Duration 07/22/18 4 Impairment fall recovery Usp Goal (LTG) able to perform fall recovery independently with the use of chair LTG Duration 08/21/18 3 Impairment balance Short Term Goal (STG) Increase [place] score by 4 points for fall prevention STG Duration Met Off Track Betting Manager Goal (LTG) Increase [place] score to 50/56 for fall prevention LTG Duration 8 weeks 2 Impairment ROM Short Term Goal (STG) increase lumbar ROM by 20 % (B UE touch both knees) to be able to pick objects from floor STG Duration 07/22/18 Off Track Betting Manager Goal (LTG) increase lumbar ROM by 40 % (B UE touch both carreon shafts) to be able to pick objects from floor LTG Duration 08/21/18 1 Impairment pain Short Term Goal (STG) reduce LBP by 2 points during bending over counter and standing position STG Duration 07/22/18 Usp Goal (LTG) reduce LBP by 2 points during bending over counter and standing position LTG Duration 08/21/18 Assessment Summary Assessment During right Kamala-Hallpike, pt complained of vertigo and demonstrated up-beating, torsional nystagmus lasting approximately 30 seconds, consistent with diagnosis of right-sided posterior canal BPPV. During the right-sided Evaristo maneuver, pt also displayed symptoms in position two, which may be suggestive of left-sided BPPV. Following the Evaristo, pt was tested with a left-Hallpike, which was then negative. A second right- sided Evaristo was performed, and further testing was negative. Pt demonstrated during her reassessment an 8 point improvement in her [place] Balance Scale, and an overall improvement in her LE and core strength. Continued therapy should help to improve pt's functional mobility, limit vertigo, improve strength, and decrease falls risk. Physical Therapy Plan Frequency and Duration Frequency of Treatment 2x/Week Duration of Treatment 3 months Plan of Care Start Date 06/21/18 Plan of Care End Date 09/21/18 Next Visit Focus/Plan Next Note Type Treatment Note Next Visit Plan progress balance (tilt board vs Shuttle Balance), LE strength- sit<->stand.
--- NOTE | 2018-06-21 15:18 | PT.OPPOC ---
Current Diagnoses Repeated falls (06/21/18) Provider Visit Care Team Role Provider Type Maryanne Gaviria PA-C Attending Provider [facility] Registered Nurse Family Provider Primary Care Provider Specialty: Internal Medicine Address: [address] [place] [address], [id number] Email: Plan Of Care PT-OP-T Assessment and Plan Start: 04/20/18 12:26 Freq: Status: Active Protocol: Document 06/21/18 14:30 DCW (Rec: 06/21/18 15:17 DCW [id number]) Physical Therapy Assessment Impairments Impairments Activity Tolerance Balance Functional Activities Functional Mobility Gait Pain Posture ROM Soft Tissue Mobility Strength Transfers Vestibular Goals 5 Impairment Kamala-Hallpike Short Term Goal (STG) Negative right hallpike STG Duration 07/22/18 4 Impairment fall recovery Snf Goal (LTG) able to perform fall recovery independently with the use of chair LTG Duration 08/21/18 3 Impairment balance Short Term Goal (STG) Increase [place] score by 4 points for fall prevention STG Duration Met Snf Goal (LTG) Increase [place]STON score to 50/56 for fall prevention LTG Duration 8 weeks 2 Impairment ROM Short Term Goal (STG) increase lumbar ROM by 20 % (B UE touch both knees) to be able to pick objects from floor STG Duration 07/22/18 Event Marketing Manager Goal (LTG) increase lumbar ROM by 40 % (B UE touch both carreon shafts) to be able to pick objects from floor LTG Duration 08/21/18 1 Impairment pain Short Term Goal (STG) reduce LBP by 2 points during bending over counter and standing position STG Duration 07/22/18 Event Marketing Manager Goal (LTG) reduce LBP by 2 points during bending over counter and standing position LTG Duration 08/21/18 Assessment Summary Assessment During right Kamala-Hallpike, pt complained of vertigo and demonstrated up-beating, torsional nystagmus lasting approximately 30 seconds, consistent with diagnosis of right-sided posterior canal BPPV. During the right-sided Evaristo maneuver, pt also displayed symptoms in position two, which may be suggestive of left-sided BPPV. Following the Evaristo, pt was tested with a left-Hallpike, which was then negative. A second right- sided Evaristo was performed, and further testing was negative. Pt demonstrated during her reassessment an 8 point improvement in her [place] Balance Scale, and an overall improvement in her LE and core strength. Continued therapy should help to improve pt's functional mobility, limit vertigo, improve strength, and decrease falls risk. Physical Therapy Plan Frequency and Duration Frequency of Treatment 2x/Week Duration of Treatment 3 months Plan of Care Start Date 06/21/18 Plan of Care End Date 09/21/18 Next Visit Focus/Plan Next Note Type Treatment Note Next Visit Plan progress balance (tilt board vs Shuttle Balance), LE strength- sit<->stand. Plan of Care Dates Plan of Care Start Date 06/21/18 Plan of Care End Date 09/21/18 Please Sign and Return: I have reviewed this Plan of Care and certify that the skilled therapy services above are required to meet the patient?s needs. Physician Signature Date Printed Name and Credentials Clinical Instructor Signature Printed Name and Credentials
--- NOTE | 2018-06-23 15:09 | PT.OTN ---
Current Diagnoses Repeated falls (06/23/18) Physical Therapy Treatment Note PT-OP-A Visit Information Start: 04/20/18 12:26 Freq: Status: Active Protocol: Document 06/23/18 14:30 DCW (Rec: 06/23/18 15:09 DCW [id number]) Out-Patient Physical Therapy Visit Information Visit Information Visit Type Treatment Note Visit Note 2019 visit 9 Visit Start Time 14:30 Visit Stop Time 15:15 Total Visit Minutes 45 Visit Number 2/10 Number of AUTOMATION ENGINEER Visits 0 Evaluation Information Evaluation Date 04/20/18 PT-OP-B Current Condition Start: 04/20/18 12:26 Freq: Status: Active Protocol: Document 04/20/18 11:15 HH (Rec: 04/20/18 13:23 HH [email or web address]) Current Condition History of Current Condition Onset Date 2015 Current Complaints LBP Stenosis, frequent falls, difficulty in walking, generalized weakness History of Current Condition Pt is a 77 yo pleasant female with 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 PMH includes R ORIF 11/04/17 after a fall, bowel abdominal surgery in Jan, L multiple rib fx in Dec after a fall, stent 4years ago and R kidney removal 2 years ago. Pt admitted to SNF to receive rehab from early December after her rib injury from a fall until 03/16/18. Pt has been receiving home health PT ([facility]) for overall mobility and strength training for ADLs and IADLs until last week. Pt reports she has at least 4 falls over the past year due to her sense of poor balance and her L leg often gives out . Pt also reports she was not able to recover from her last two falls who had to call video operator. She states her back pain started years ago who is unable to stand >5 mins or maintain in trunk flexion position more than a minute while cooking. She currently lives at a 1 story house alone with 5 AUSTYN at front but no AUSTYN at backdoor. Pt uses back entrance at all time due to poor balance. Pt also have a walk in shower with slide in shower chair and grab around the bathroom. Pt states she uses wall and counters for support to amb around the house and uses SPC for community mobility. Pt also drives for IADLs. Treatment Goals Patient/Caregiver Goals To be able to perform fall recovery independently to be able to maintain standing in pain free > 5 mins to be able to bend over at the counter for dish washing and cooking without pain Prior Functional Status Baseline Function- ADL's Independent Baseline Function- Mobility Independent Baseline Function- Gait with SPC on R side Baseline Function- Work/School unable to stand >5 mins due to pain unable to bend over at the counter for dish washing and cooking more than a minute Current Functional Impairments (Reported) Functional Limitations- Mobility/Gait stair negotiation with increased time taken and use of handrails SPC on right side use of counter and wall for support for home mobility PT-OP-C Subjective Start: 04/20/18 12:26 Freq: Status: Active Protocol: Document 06/23/18 14:30 DCW (Rec: 06/23/18 15:09 DCW [id number]) OP-PT Subjective Patient Comments Patient Comments I'm not sure, but I think the vertigo is still there. PT-OP-D Balance Start: 04/20/18 12:26 Freq: Status: Active Protocol: Document 06/21/18 14:30 DCW (Rec: 06/21/18 15:03 DCW [id number]) Balance Tests [place] Balance Test [place] Balance Test Score 46/56 [place] Impairment Rating 1 to 19% Impaired (Score 45-55 ) [place] Balance Assessment Evaluation Sitting to Standing Ability Independent w/out Hands Unsupported Stance Safely- 2 minutes Sitting Unsupported, Feet on Floor Safely- 2 minutes Standing to Sitting Ability Safely, Minimal Hand Use Transfer Ability Safely, Minimal Hand Use Unsupported Stance- Eyes Closed Safely, 10 seconds Unsupported Stance- Eyes Open Independent, 1 minute Reaching Forward Standing Safely, 5 inches Pick- Up Object From Floor Independent/Safe Look Behind Shoulder - Standing Shifts Weight Well Turning 360 Degrees Turns slowly, but safely Unsupported Stance, Alternating Feet on 4 Steps w/Supervision Stair Unsupported Tandem Stance Small Step- 30 seconds Unilateral Leg Stance Lifts Leg/Unable to Hold Total Score [place] Total Score (out of 56 points) 46 [place] Impairment Rating 1 to 19% Impaired (Score 45-55 ) PT-OP-G Mobility & Gait Start: 04/20/18 12:26 Freq: Status: Active Protocol: Document 04/20/18 11:15 HH (Rec: 04/20/18 13:23 HH [email or web address]) OP Gait Assessment Gait Deviations General Gait Pattern Decreased Stride Length Decreased Feet Clearance Flexed Trunk Factors Limiting Gait Function Factors Limiting Gait Function Decreased Activity Tolerance Decreased Strength Limited Range of Motion Pain Poor Balance Poor Safety Awareness Comments Gait Comments amb with SPC on right side with R hip drop PT-OP-J Posture/Palpation/Skin Start: 04/20/18 12:26 Freq: Status: Active Protocol: Document 06/21/18 14:30 DCW (Rec: 06/21/18 15:03 DCW [id number]) Posture Evaluation Position Standing Evaluation View Lateral Head/C-Spine Posture Forward Head T-Spine Posture Increased Kyphosis L-Spine Posture Flattened Shoulder Posture (L) Rounded (R) Rounded (L) Forward (R) Forward Scapula Posture (L) Protracted (R) Protracted Comments Posture Comments significant thoracic kyphosis PT-OP-K Range of Motion Start: 04/20/18 12:26 Freq: Status: Active Protocol: Document 04/20/18 11:15 HH (Rec: 04/20/18 13:23 HH [email or web address]) Lumbar Spine Range of Motion Lumbar Spine Percentage Flexion 20 Extension 40 Rotation Left 60 Rotation Right 60 Lateral Flexion Left 60 Lateral Flexion Right 60 ROM Limitations Soft Tissue Tightness Muscle Weakness Pain PT-OP-M Strength Start: 04/20/18 12:26 Freq: Status: Active Protocol: Document 06/21/18 14:30 DCW (Rec: 06/21/18 15:03 DCW [id number]) Trunk Strength Trunk Manual Muscle Testing Testing Position Sitting Flexion 4- Good- Extension 4 Good Rotation Left 4 Good Rotation Right 4 Good Lateral Flexion Left 4 Good Lateral Flexion Right 4 Good Hip Strength Hip Manual Muscle Testing Right Flexion (L2) 4- Good- Abduction 4- Good- Adduction 4 Good Left Flexion (L2) 4 Good Abduction 4- Good- Adduction 4 Good External Rotation 4 Good Internal Rotation 4 Good PT-OP-O Vestibular Start: 04/20/18 12:26 Freq: Status: Active Protocol: Document 06/21/18 14:30 DCW (Rec: 06/21/18 15:03 DCW [id number]) Vestibular Assessment Positional Testing Kamala-Hallpike Positive Left Positive Right Upbeating < 60 Seconds PT-OP-Q Treatments Start: 04/20/18 12:26 Freq: Status: Active Protocol: Document 06/23/18 14:30 DCW (Rec: 06/23/18 15:09 DCW [id number]) Cardio Equipment Recumbent Elliptical (Biodex) Duration (Minutes) 6 Resistance 5 Seat Position 7 Gym Equipment Shuttle Recovery Unilateral Squats Resistance 37# Shuttle Recovery Platform Stable Reps/Time 2x12 Bilateral Squats Resistance 50# Shuttle Recovery Platform Stable Reps/Time 2x12 Therapeutic Exercises Other Exercises Resisted Forward/Retro-walking Other Exercise Name Resisted Forward/Retro-walking Side bilateral Resistance Yellow Equipment Used T-band Reps/Minutes 4 lengths of //bars Resisted Side-stepping Other Exercise Name Resisted Side-stepping Side bilateral Resistance Yellow Equipment Used T-band Reps/Minutes 4 lengths of //bars Manual Therapy Treatment Other Other Manual Treatments Positional testing; Bilateral Flint-Hallpike, Bilateral Roll Test all negative Neuro Re-Education Treatment Balance Activities Rocker board Surface firm Equipment lateral Comments in // bars DL standing Surface Ervin foam tandem walking Details forward/backward Surface firm Equipment // bars Reps/Duration 4 laps tandem standing Surface firm Equipment // bars SLS Surface firm Equipment // bars PT-OP-R Modalities Start: 04/20/18 12:26 Freq: Status: Active Protocol: Document 05/12/18 09:45 DCW (Rec: 05/12/18 10:30 DCW [id number]) Hot Pack/Cold Pack Treatment Hot Pack Location low and upper back Patient Position Sitting Treatment Duration (minutes) 10 PT-OP-T Assessment and Plan Start: 04/20/18 12:26 Freq: Status: Active Protocol: Document 06/23/18 14:30 DCW (Rec: 06/23/18 15:09 DCW [id number]) Physical Therapy Assessment Impairments Impairments Activity Tolerance Balance Functional Activities Functional Mobility Gait Pain Posture ROM Soft Tissue Mobility Strength Transfers Vestibular Goals 5 Impairment Flint-Hallpike Short Term Goal (STG) Negative right hallpike STG Duration 07/22/18 4 Impairment fall recovery Snf Goal (LTG) able to perform fall recovery independently with the use of chair LTG Duration 08/21/18 3 Impairment balance Short Term Goal (STG) Increase [place]ST[place] score by 4 points for fall prevention STG Duration Met Business Process Manager Goal (LTG) Increase [place] score to 50/56 for fall prevention LTG Duration 8 weeks 2 Impairment ROM Short Term Goal (STG) increase lumbar ROM by 20 % (B UE touch both knees) to be able to pick objects from floor STG Duration 07/22/18 Snf Goal (LTG) increase lumbar ROM by 40 % (B UE touch both carreon shafts) to be able to pick objects from floor LTG Duration 08/21/18 1 Impairment pain Short Term Goal (STG) reduce LBP by 2 points during bending over counter and standing position STG Duration 07/22/18 Snf Goal (LTG) reduce LBP by 2 points during bending over counter and standing position LTG Duration 08/21/18 Assessment Summary Assessment Pt's positional testing was negative today, tolerated TherEx well, however did complain of right hip pain with tandem stance and SLS. Physical Therapy Plan Frequency and Duration Frequency of Treatment 2x/Week Duration of Treatment 3 months Plan of Care Start Date 06/21/18 Plan of Care End Date 09/21/18 Next Visit Focus/Plan Next Note Type Treatment Note Next Visit Plan progress balance (tilt board vs Shuttle Balance), LE strength- sit<->stand.
--- NOTE | 2018-06-28 15:14 | PT.OTN ---
Current Diagnoses Repeated falls (06/28/18) Physical Therapy Treatment Note PT-OP-A Visit Information Start: 04/20/18 12:26 Freq: Status: Active Protocol: Document 06/28/18 14:30 DCW (Rec: 06/28/18 15:14 DCW [id number]) Out-Patient Physical Therapy Visit Information Visit Information Visit Type Treatment Note Visit Note 2019 visit 10 Visit Start Time 14:30 Visit Stop Time 15:15 Total Visit Minutes 45 Visit Number 3/10 Number of CELL LEAD Visits 0 Evaluation Information Evaluation Date 04/20/18 PT-OP-B Current Condition Start: 04/20/18 12:26 Freq: Status: Active Protocol: Document 04/20/18 11:15 HH (Rec: 04/20/18 13:23 HH [email or web address]) Current Condition History of Current Condition Onset Date 2015 Current Complaints LBP Stenosis, frequent falls, difficulty in walking, generalized weakness History of Current Condition Pt is a 77 yo pleasant female with 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 PMH includes R ORIF 11/04/17 after a fall, bowel abdominal surgery in Jan, L multiple rib fx in Dec after a fall, stent 4years ago and R kidney removal 2 years ago. Pt admitted to SNF to receive rehab from early December after her rib injury from a fall until 03/16/18. Pt has been receiving home health PT ([facility]) for overall mobility and strength training for ADLs and IADLs until last week. Pt reports she has at least 4 falls over the past year due to her sense of poor balance and her L leg often gives out . Pt also reports she was not able to recover from her last two falls who had to call boiling tub operator. She states her back pain started years ago who is unable to stand >5 mins or maintain in trunk flexion position more than a minute while cooking. She currently lives at a 1 story house alone with 5 AUSTYN at front but no AUSTYN at backdoor. Pt uses back entrance at all time due to poor balance. Pt also have a walk in shower with slide in shower chair and grab around the bathroom. Pt states she uses wall and counters for support to amb around the house and uses SPC for community mobility. Pt also drives for IADLs. Treatment Goals Patient/Caregiver Goals To be able to perform fall recovery independently to be able to maintain standing in pain free > 5 mins to be able to bend over at the counter for dish washing and cooking without pain Prior Functional Status Baseline Function- ADL's Independent Baseline Function- Mobility Independent Baseline Function- Gait with SPC on R side Baseline Function- Work/School unable to stand >5 mins due to pain unable to bend over at the counter for dish washing and cooking more than a minute Current Functional Impairments (Reported) Functional Limitations- Mobility/Gait stair negotiation with increased time taken and use of handrails SPC on right side use of counter and wall for support for home mobility PT-OP-C Subjective Start: 04/20/18 12:26 Freq: Status: Active Protocol: Document 06/28/18 14:30 DCW (Rec: 06/28/18 15:14 DCW [id number]) OP-PT Subjective Patient Comments Patient Comments I'm still having a little dizziness when I lay back in bed, but I do it anyway. PT-OP-D Balance Start: 04/20/18 12:26 Freq: Status: Active Protocol: Document 06/21/18 14:30 DCW (Rec: 06/21/18 15:03 DCW [id number]) Balance Tests [place] Balance Test [place] Balance Test Score 46/56 [place] Impairment Rating 1 to 19% Impaired (Score 45-55 ) [place] Balance Assessment Evaluation Sitting to Standing Ability Independent w/out Hands Unsupported Stance Safely- 2 minutes Sitting Unsupported, Feet on Floor Safely- 2 minutes Standing to Sitting Ability Safely, Minimal Hand Use Transfer Ability Safely, Minimal Hand Use Unsupported Stance- Eyes Closed Safely, 10 seconds Unsupported Stance- Eyes Open Independent, 1 minute Reaching Forward Standing Safely, 5 inches Pick- Up Object From Floor Independent/Safe Look Behind Shoulder - Standing Shifts Weight Well Turning 360 Degrees Turns slowly, but safely Unsupported Stance, Alternating Feet on 4 Steps w/Supervision Stair Unsupported Tandem Stance Small Step- 30 seconds Unilateral Leg Stance Lifts Leg/Unable to Hold Total Score [place] Total Score (out of 56 points) 46 [place] Impairment Rating 1 to 19% Impaired (Score 45-55 ) PT-OP-G Mobility & Gait Start: 04/20/18 12:26 Freq: Status: Active Protocol: Document 04/20/18 11:15 HH (Rec: 04/20/18 13:23 HH [email or web address]) OP Gait Assessment Gait Deviations General Gait Pattern Decreased Stride Length Decreased Feet Clearance Flexed Trunk Factors Limiting Gait Function Factors Limiting Gait Function Decreased Activity Tolerance Decreased Strength Limited Range of Motion Pain Poor Balance Poor Safety Awareness Comments Gait Comments amb with SPC on right side with R hip drop PT-OP-J Posture/Palpation/Skin Start: 04/20/18 12:26 Freq: Status: Active Protocol: Document 06/21/18 14:30 DCW (Rec: 06/21/18 15:03 DCW [id number]) Posture Evaluation Position Standing Evaluation View Lateral Head/C-Spine Posture Forward Head T-Spine Posture Increased Kyphosis L-Spine Posture Flattened Shoulder Posture (L) Rounded (R) Rounded (L) Forward (R) Forward Scapula Posture (L) Protracted (R) Protracted Comments Posture Comments significant thoracic kyphosis PT-OP-K Range of Motion Start: 04/20/18 12:26 Freq: Status: Active Protocol: Document 04/20/18 11:15 HH (Rec: 04/20/18 13:23 HH [email or web address]) Lumbar Spine Range of Motion Lumbar Spine Percentage Flexion 20 Extension 40 Rotation Left 60 Rotation Right 60 Lateral Flexion Left 60 Lateral Flexion Right 60 ROM Limitations Soft Tissue Tightness Muscle Weakness Pain PT-OP-M Strength Start: 04/20/18 12:26 Freq: Status: Active Protocol: Document 06/21/18 14:30 DCW (Rec: 06/21/18 15:03 DCW [id number]) Trunk Strength Trunk Manual Muscle Testing Testing Position Sitting Flexion 4- Good- Extension 4 Good Rotation Left 4 Good Rotation Right 4 Good Lateral Flexion Left 4 Good Lateral Flexion Right 4 Good Hip Strength Hip Manual Muscle Testing Right Flexion (L2) 4- Good- Abduction 4- Good- Adduction 4 Good Left Flexion (L2) 4 Good Abduction 4- Good- Adduction 4 Good External Rotation 4 Good Internal Rotation 4 Good PT-OP-O Vestibular Start: 04/20/18 12:26 Freq: Status: Active Protocol: Document 06/21/18 14:30 DCW (Rec: 06/21/18 15:03 DCW [id number]) Vestibular Assessment Positional Testing Morton-Hallpike Positive Left Positive Right Upbeating < 60 Seconds PT-OP-Q Treatments Start: 04/20/18 12:26 Freq: Status: Active Protocol: Document 06/28/18 14:30 DCW (Rec: 06/28/18 15:14 DCW [id number]) Cardio Equipment Recumbent Elliptical (Biodex) Duration (Minutes) 6 Resistance 5 Seat Position 7 Gym Equipment Shuttle Balance Red Details Wide GENIE, Staggered Stance Therapeutic Exercises Other Exercises Resisted Forward/Retro-walking Other Exercise Name Resisted Forward/Retro-walking Side bilateral Resistance Yellow Equipment Used T-band Reps/Minutes 4 lengths of //bars Resisted Side-stepping Other Exercise Name Resisted Side-stepping Side bilateral Resistance Yellow Equipment Used T-band Reps/Minutes 4 lengths of //bars Manual Therapy Treatment Other Other Manual Treatments Positional Testing: Positive R Morton-Hallpike Neuro Re-Education Treatment Balance Activities tandem walking Details forward/backward Surface firm Equipment // bars Reps/Duration 4 laps Canalithic Repositioning BPPV Treatment Evaristo Affected Canal(s) Right Posterior Reps x2 PT-OP-R Modalities Start: 04/20/18 12:26 Freq: Status: Active Protocol: Document 05/12/18 09:45 DCW (Rec: 05/12/18 10:30 DCW [id number]) Hot Pack/Cold Pack Treatment Hot Pack Location low and upper back Patient Position Sitting Treatment Duration (minutes) 10 PT-OP-T Assessment and Plan Start: 04/20/18 12:26 Freq: Status: Active Protocol: Document 06/28/18 14:30 DCW (Rec: 06/28/18 15:14 DCW [id number]) Physical Therapy Assessment Impairments Impairments Activity Tolerance Balance Functional Activities Functional Mobility Gait Pain Posture ROM Soft Tissue Mobility Strength Transfers Vestibular Goals 5 Impairment Kamala-Hallpike Short Term Goal (STG) Negative right hallpike STG Duration 07/22/18 4 Impairment fall recovery Prison Goal (LTG) able to perform fall recovery independently with the use of chair LTG Duration 08/21/18 3 Impairment balance Short Term Goal (STG) Increase [place] score by 4 points for fall prevention STG Duration Met Education Professional Goal (LTG) Increase [place] score to 50/56 for fall prevention LTG Duration 8 weeks 2 Impairment ROM Short Term Goal (STG) increase lumbar ROM by 20 % (B UE touch both knees) to be able to pick objects from floor STG Duration 07/22/18 Prison Goal (LTG) increase lumbar ROM by 40 % (B UE touch both carreon shafts) to be able to pick objects from floor LTG Duration 08/21/18 1 Impairment pain Short Term Goal (STG) reduce LBP by 2 points during bending over counter and standing position STG Duration 07/22/18 Education Professional Goal (LTG) reduce LBP by 2 points during bending over counter and standing position LTG Duration 08/21/18 Assessment Summary Assessment 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 A right-sided Evaristo maneuver was performed, and a second test was still positive , however much less severe. A second Evaristo was the performed . Physical Therapy Plan Frequency and Duration Frequency of Treatment 2x/Week Duration of Treatment 3 months Plan of Care Start Date 06/21/18 Plan of Care End Date 09/21/18 Next Visit Focus/Plan Next Note Type Treatment Note Next Visit Plan progress balance (tilt board vs Shuttle Balance), LE strength- sit<->stand.
--- NOTE | 2018-06-30 15:10 | PT.OTN ---
Current Diagnoses Repeated falls (06/30/18) Physical Therapy Treatment Note PT-OP-A Visit Information Start: 04/20/18 12:26 Freq: Status: Active Protocol: Document 06/30/18 14:30 DCW (Rec: 06/30/18 15:09 DCW [id number]) Out-Patient Physical Therapy Visit Information Visit Information Visit Type Treatment Note Visit Note 2019 visit 11 Visit Start Time 14:30 Visit Stop Time 15:15 Total Visit Minutes 45 Visit Number 4/10 Number of MEDICAL OPERATIONS SUPERVISOR Visits 0 Evaluation Information Evaluation Date 04/20/18 PT-OP-B Current Condition Start: 04/20/18 12:26 Freq: Status: Active Protocol: Document 04/20/18 11:15 HH (Rec: 04/20/18 13:23 HH [email or web address]) Current Condition History of Current Condition Onset Date 2015 Current Complaints LBP Stenosis, frequent falls, difficulty in walking, generalized weakness History of Current Condition Pt is a 77 yo pleasant female with 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 PMH includes R ORIF 11/04/17 after a fall, bowel abdominal surgery in Jan, L multiple rib fx in Dec after a fall, stent 4years ago and R kidney removal 2 years ago. Pt admitted to SNF to receive rehab from early December after her rib injury from a fall until 03/16/18. Pt has been receiving home health PT ([facility]) for overall mobility and strength training for ADLs and IADLs until last week. Pt reports she has at least 4 falls over the past year due to her sense of poor balance and her L leg often gives out . Pt also reports she was not able to recover from her last two falls who had to call [employer]. She states her back pain started years ago who is unable to stand >5 mins or maintain in trunk flexion position more than a minute while cooking. She currently lives at a 1 story house alone with 5 AUSTYN at front but no AUSTYN at backdoor. Pt uses back entrance at all time due to poor balance. Pt also have a walk in shower with slide in shower chair and grab around the bathroom. Pt states she uses wall and counters for support to amb around the house and uses SPC for community mobility. Pt also drives for IADLs. Treatment Goals Patient/Caregiver Goals To be able to perform fall recovery independently to be able to maintain standing in pain free > 5 mins to be able to bend over at the counter for dish washing and cooking without pain Prior Functional Status Baseline Function- ADL's Independent Baseline Function- Mobility Independent Baseline Function- Gait with SPC on R side Baseline Function- Work/School unable to stand >5 mins due to pain unable to bend over at the counter for dish washing and cooking more than a minute Current Functional Impairments (Reported) Functional Limitations- Mobility/Gait stair negotiation with increased time taken and use of handrails SPC on right side use of counter and wall for support for home mobility PT-OP-C Subjective Start: 04/20/18 12:26 Freq: Status: Active Protocol: Document 06/30/18 14:30 DCW (Rec: 06/30/18 15:09 DCW [id number]) OP-PT Subjective Patient Comments Patient Comments I think I still have a touch of dizziness. It was pretty bad yesterday, but seems to be better today. PT-OP-D Balance Start: 04/20/18 12:26 Freq: Status: Active Protocol: Document 06/21/18 14:30 DCW (Rec: 06/21/18 15:03 DCW [id number]) Balance Tests [place] Balance Test [place] Balance Test Score 46/56 [place] Impairment Rating 1 to 19% Impaired (Score 45-55 ) [place] Balance Assessment Evaluation Sitting to Standing Ability Independent w/out Hands Unsupported Stance Safely- 2 minutes Sitting Unsupported, Feet on Floor Safely- 2 minutes Standing to Sitting Ability Safely, Minimal Hand Use Transfer Ability Safely, Minimal Hand Use Unsupported Stance- Eyes Closed Safely, 10 seconds Unsupported Stance- Eyes Open Independent, 1 minute Reaching Forward Standing Safely, 5 inches Pick- Up Object From Floor Independent/Safe Look Behind Shoulder - Standing Shifts Weight Well Turning 360 Degrees Turns slowly, but safely Unsupported Stance, Alternating Feet on 4 Steps w/Supervision Stair Unsupported Tandem Stance Small Step- 30 seconds Unilateral Leg Stance Lifts Leg/Unable to Hold Total Score [place] Total Score (out of 56 points) 46 [place] Impairment Rating 1 to 19% Impaired (Score 45-55 ) PT-OP-G Mobility & Gait Start: 04/20/18 12:26 Freq: Status: Active Protocol: Document 04/20/18 11:15 HH (Rec: 04/20/18 13:23 HH [email or web address]) OP Gait Assessment Gait Deviations General Gait Pattern Decreased Stride Length Decreased Feet Clearance Flexed Trunk Factors Limiting Gait Function Factors Limiting Gait Function Decreased Activity Tolerance Decreased Strength Limited Range of Motion Pain Poor Balance Poor Safety Awareness Comments Gait Comments amb with SPC on right side with R hip drop PT-OP-J Posture/Palpation/Skin Start: 04/20/18 12:26 Freq: Status: Active Protocol: Document 06/21/18 14:30 DCW (Rec: 06/21/18 15:03 DCW [id number]) Posture Evaluation Position Standing Evaluation View Lateral Head/C-Spine Posture Forward Head T-Spine Posture Increased Kyphosis L-Spine Posture Flattened Shoulder Posture (L) Rounded (R) Rounded (L) Forward (R) Forward Scapula Posture (L) Protracted (R) Protracted Comments Posture Comments significant thoracic kyphosis PT-OP-K Range of Motion Start: 04/20/18 12:26 Freq: Status: Active Protocol: Document 04/20/18 11:15 HH (Rec: 04/20/18 13:23 HH [email or web address]) Lumbar Spine Range of Motion Lumbar Spine Percentage Flexion 20 Extension 40 Rotation Left 60 Rotation Right 60 Lateral Flexion Left 60 Lateral Flexion Right 60 ROM Limitations Soft Tissue Tightness Muscle Weakness Pain PT-OP-M Strength Start: 04/20/18 12:26 Freq: Status: Active Protocol: Document 06/21/18 14:30 DCW (Rec: 06/21/18 15:03 DCW [id number]) Trunk Strength Trunk Manual Muscle Testing Testing Position Sitting Flexion 4- Good- Extension 4 Good Rotation Left 4 Good Rotation Right 4 Good Lateral Flexion Left 4 Good Lateral Flexion Right 4 Good Hip Strength Hip Manual Muscle Testing Right Flexion (L2) 4- Good- Abduction 4- Good- Adduction 4 Good Left Flexion (L2) 4 Good Abduction 4- Good- Adduction 4 Good External Rotation 4 Good Internal Rotation 4 Good PT-OP-O Vestibular Start: 04/20/18 12:26 Freq: Status: Active Protocol: Document 06/21/18 14:30 DCW (Rec: 06/21/18 15:03 DCW [id number]) Vestibular Assessment Positional Testing [place]-Hallpike Positive Left Positive Right Upbeating < 60 Seconds PT-OP-Q Treatments Start: 04/20/18 12:26 Freq: Status: Active Protocol: Document 06/30/18 14:30 DCW (Rec: 06/30/18 15:09 DCW [id number]) Cardio Equipment Recumbent Elliptical (Biodex) Duration (Minutes) 6 Resistance 5 Seat Position 7 Gym Equipment Shuttle Recovery Unilateral Squats Resistance 37# Shuttle Recovery Platform Stable Reps/Time 2x12 Bilateral Squats Resistance 50# Shuttle Recovery Platform Stable Reps/Time 2x12 Shuttle Balance Red Details Wide GENIE Therapeutic Exercises Sitting Exercises Piriformis Stretch Sitting Exercise Name Seated Figure-4 Side bilateral Other Exercises Resisted Forward/Retro-walking Other Exercise Name Resisted Forward/Retro-walking Side bilateral Resistance Yellow Equipment Used T-band Reps/Minutes 4 lengths of //bars Resisted Side-stepping Other Exercise Name Resisted Side-stepping Side bilateral Resistance Yellow Equipment Used T-band Reps/Minutes 4 lengths of //bars Manual Therapy Treatment Other Other Manual Treatments Positional Testing: Positive R [place]-Hallpike Canalithic Repositioning BPPV Treatment Evaristo Affected Canal(s) Right Posterior Reps x2 PT-OP-R Modalities Start: 04/20/18 12:26 Freq: Status: Active Protocol: Document 05/12/18 09:45 DCW (Rec: 05/12/18 10:30 DCW [id number]) Hot Pack/Cold Pack Treatment Hot Pack Location low and upper back Patient Position Sitting Treatment Duration (minutes) 10 PT-OP-T Assessment and Plan Start: 04/20/18 12:26 Freq: Status: Active Protocol: Document 06/30/18 14:30 DCW (Rec: 06/30/18 15:09 DCW [id number]) Physical Therapy Assessment Impairments Impairments Activity Tolerance Balance Functional Activities Functional Mobility Gait Pain Posture ROM Soft Tissue Mobility Strength Transfers Vestibular Goals 5 Impairment [place]-Hallpike Short Term Goal (STG) Negative right hallpike STG Duration 07/22/18 4 Impairment fall recovery Alf Goal (LTG) able to perform fall recovery independently with the use of chair LTG Duration 08/21/18 3 Impairment balance Short Term Goal (STG) Increase [place] score by 4 points for fall prevention STG Duration Met Surgical First Assistant Goal (LTG) Increase [place] score to 50/56 for fall prevention LTG Duration 8 weeks 2 Impairment ROM Short Term Goal (STG) increase lumbar ROM by 20 % (B UE touch both knees) to be able to pick objects from floor STG Duration 07/22/18 Surgical First Assistant Goal (LTG) increase lumbar ROM by 40 % (B UE touch both carreon shafts) to be able to pick objects from floor LTG Duration 08/21/18 1 Impairment pain Short Term Goal (STG) reduce LBP by 2 points during bending over counter and standing position STG Duration 07/22/18 Surgical First Assistant Goal (LTG) reduce LBP by 2 points during bending over counter and standing position LTG Duration 08/21/18 Assessment Summary Assessment Again, pt displayed a positive R [place]-Hallpike today, indicating posterior canal BPPV. A right-sided Evaristo maneuver was performed. Further testing was negative. A second Evaristo was then performed. Additionally, pt was experiencing increased hip pain bilaterally with her TherEx today, and needed to stop using the Shuttle Balance early due to increased pain. Physical Therapy Plan Frequency and Duration Frequency of Treatment 2x/Week Duration of Treatment 3 months Plan of Care Start Date 06/21/18 Plan of Care End Date 09/21/18 Next Visit Focus/Plan Next Note Type Treatment Note Next Visit Plan Progress balance, reassess positional testing, LE strengthening.
--- NOTE | 2018-07-05 15:13 | PT.OTN ---
Current Diagnoses Repeated falls (07/05/18) Physical Therapy Treatment Note PT-OP-A Visit Information Start: 04/20/18 12:26 Freq: Status: Active Protocol: Document 07/05/18 14:35 DCW (Rec: 07/05/18 15:11 DCW [id number]) Out-Patient Physical Therapy Visit Information Visit Information Visit Type Treatment Note Visit Note 2019 visit 11 Visit Start Time 14:35 Visit Stop Time 15:15 Total Visit Minutes 40 Visit Number 5/10 Number of TANK BUILDER SUPERVISOR Visits 0 Evaluation Information Evaluation Date 04/20/18 PT-OP-B Current Condition Start: 04/20/18 12:26 Freq: Status: Active Protocol: Document 04/20/18 11:15 HH (Rec: 04/20/18 13:23 HH [email or web address]) Current Condition History of Current Condition Onset Date 2015 Current Complaints LBP Stenosis, frequent falls, difficulty in walking, generalized weakness History of Current Condition Pt is a 77 yo pleasant female with 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 PMH includes R ORIF 11/04/17 after a fall, bowel abdominal surgery in Jan, L multiple rib fx in Dec after a fall, stent 4years ago and R kidney removal 2 years ago. Pt admitted to SNF to receive rehab from early December after her rib injury from a fall until 03/16/18. Pt has been receiving home health PT ([facility]) for overall mobility and strength training for ADLs and IADLs until last week. Pt reports she has at least 4 falls over the past year due to her sense of poor balance and her L leg often gives out . Pt also reports she was not able to recover from her last two falls who had to call statistics intern. She states her back pain started years ago who is unable to stand >5 mins or maintain in trunk flexion position more than a minute while cooking. She currently lives at a 1 story house alone with 5 AUSTYN at front but no AUSTYN at backdoor. Pt uses back entrance at all time due to poor balance. Pt also have a walk in shower with slide in shower chair and grab around the bathroom. Pt states she uses wall and counters for support to amb around the house and uses SPC for community mobility. Pt also drives for IADLs. Treatment Goals Patient/Caregiver Goals To be able to perform fall recovery independently to be able to maintain standing in pain free > 5 mins to be able to bend over at the counter for dish washing and cooking without pain Prior Functional Status Baseline Function- ADL's Independent Baseline Function- Mobility Independent Baseline Function- Gait with SPC on R side Baseline Function- Work/School unable to stand >5 mins due to pain unable to bend over at the counter for dish washing and cooking more than a minute Current Functional Impairments (Reported) Functional Limitations- Mobility/Gait stair negotiation with increased time taken and use of handrails SPC on right side use of counter and wall for support for home mobility PT-OP-C Subjective Start: 04/20/18 12:26 Freq: Status: Active Protocol: Document 07/05/18 14:35 DCW (Rec: 07/05/18 15:11 DCW [id number]) OP-PT Subjective Patient Comments Patient Comments I feel like the dizziness is still there. PT-OP-D Balance Start: 04/20/18 12:26 Freq: Status: Active Protocol: Document 06/21/18 14:30 DCW (Rec: 06/21/18 15:03 DCW [id number]) Balance Tests [place] Balance Test [place] Balance Test Score 46/56 [place] Impairment Rating 1 to 19% Impaired (Score 45-55 ) [place] Balance Assessment Evaluation Sitting to Standing Ability Independent w/out Hands Unsupported Stance Safely- 2 minutes Sitting Unsupported, Feet on Floor Safely- 2 minutes Standing to Sitting Ability Safely, Minimal Hand Use Transfer Ability Safely, Minimal Hand Use Unsupported Stance- Eyes Closed Safely, 10 seconds Unsupported Stance- Eyes Open Independent, 1 minute Reaching Forward Standing Safely, 5 inches Pick- Up Object From Floor Independent/Safe Look Behind Shoulder - Standing Shifts Weight Well Turning 360 Degrees Turns slowly, but safely Unsupported Stance, Alternating Feet on 4 Steps w/Supervision Stair Unsupported Tandem Stance Small Step- 30 seconds Unilateral Leg Stance Lifts Leg/Unable to Hold Total Score [place] Total Score (out of 56 points) 46 [place] Impairment Rating 1 to 19% Impaired (Score 45-55 ) PT-OP-G Mobility & Gait Start: 04/20/18 12:26 Freq: Status: Active Protocol: Document 04/20/18 11:15 HH (Rec: 04/20/18 13:23 HH [email or web address]) OP Gait Assessment Gait Deviations General Gait Pattern Decreased Stride Length Decreased Feet Clearance Flexed Trunk Factors Limiting Gait Function Factors Limiting Gait Function Decreased Activity Tolerance Decreased Strength Limited Range of Motion Pain Poor Balance Poor Safety Awareness Comments Gait Comments amb with SPC on right side with R hip drop PT-OP-J Posture/Palpation/Skin Start: 04/20/18 12:26 Freq: Status: Active Protocol: Document 06/21/18 14:30 DCW (Rec: 06/21/18 15:03 DCW [id number]) Posture Evaluation Position Standing Evaluation View Lateral Head/C-Spine Posture Forward Head T-Spine Posture Increased Kyphosis L-Spine Posture Flattened Shoulder Posture (L) Rounded (R) Rounded (L) Forward (R) Forward Scapula Posture (L) Protracted (R) Protracted Comments Posture Comments significant thoracic kyphosis PT-OP-K Range of Motion Start: 04/20/18 12:26 Freq: Status: Active Protocol: Document 04/20/18 11:15 HH (Rec: 04/20/18 13:23 HH [email or web address]) Lumbar Spine Range of Motion Lumbar Spine Percentage Flexion 20 Extension 40 Rotation Left 60 Rotation Right 60 Lateral Flexion Left 60 Lateral Flexion Right 60 ROM Limitations Soft Tissue Tightness Muscle Weakness Pain PT-OP-M Strength Start: 04/20/18 12:26 Freq: Status: Active Protocol: Document 06/21/18 14:30 DCW (Rec: 06/21/18 15:03 DCW [id number]) Trunk Strength Trunk Manual Muscle Testing Testing Position Sitting Flexion 4- Good- Extension 4 Good Rotation Left 4 Good Rotation Right 4 Good Lateral Flexion Left 4 Good Lateral Flexion Right 4 Good Hip Strength Hip Manual Muscle Testing Right Flexion (L2) 4- Good- Abduction 4- Good- Adduction 4 Good Left Flexion (L2) 4 Good Abduction 4- Good- Adduction 4 Good External Rotation 4 Good Internal Rotation 4 Good PT-OP-O Vestibular Start: 04/20/18 12:26 Freq: Status: Active Protocol: Document 06/21/18 14:30 DCW (Rec: 06/21/18 15:03 DCW [id number]) Vestibular Assessment Positional Testing [place]-Hallpike Positive Left Positive Right Upbeating < 60 Seconds PT-OP-Q Treatments Start: 04/20/18 12:26 Freq: Status: Active Protocol: Document 07/05/18 14:35 DCW (Rec: 07/05/18 15:11 DCW [id number]) Cardio Equipment Recumbent Elliptical (Biodex) Duration (Minutes) 6 Resistance 5 Seat Position 7 Gym Equipment Shuttle Recovery Unilateral Squats Resistance 37# Shuttle Recovery Platform Stable Reps/Time 2x12 Bilateral Squats Resistance 62# Shuttle Recovery Platform Stable Reps/Time 2x12 Shuttle Balance Red Details Wide GENIE, Staggered Stance Therapeutic Exercises Sitting Exercises Piriformis Stretch Sitting Exercise Name Seated Figure-4 Side bilateral Other Exercises Resisted Forward/Retro-walking Other Exercise Name Resisted Forward/Retro-walking Side bilateral Resistance Yellow Equipment Used T-band Reps/Minutes 4 lengths of //bars Resisted Side-stepping Other Exercise Name Resisted Side-stepping Side bilateral Resistance Yellow Equipment Used T-band Reps/Minutes 4 lengths of //bars Manual Therapy Treatment Other Other Manual Treatments Positional Testing: Positive R [place]-Hallpike Canalithic Repositioning BPPV Treatment Evaristo Affected Canal(s) Right Posterior Reps x1 PT-OP-R Modalities Start: 04/20/18 12:26 Freq: Status: Active Protocol: Document 05/12/18 09:45 DCW (Rec: 05/12/18 10:30 DCW [id number]) Hot Pack/Cold Pack Treatment Hot Pack Location low and upper back Patient Position Sitting Treatment Duration (minutes) 10 PT-OP-T Assessment and Plan Start: 04/20/18 12:26 Freq: Status: Active Protocol: Document 07/05/18 14:35 DCW (Rec: 07/05/18 15:11 DCW [id number]) Physical Therapy Assessment Impairments Impairments Activity Tolerance Balance Functional Activities Functional Mobility Gait Pain Posture ROM Soft Tissue Mobility Strength Transfers Vestibular Goals 5 Impairment [place]-Hallpike Short Term Goal (STG) Negative right hallpike STG Duration 07/22/18 4 Impairment fall recovery [facility] Goal (LTG) able to perform fall recovery independently with the use of chair LTG Duration 08/21/18 3 Impairment balance Short Term Goal (STG) Increase [place] score by 4 points for fall prevention STG Duration Met [facility] Goal (LTG) Increase [place] score to 50/56 for fall prevention LTG Duration 8 weeks 2 Impairment ROM Short Term Goal (STG) increase lumbar ROM by 20 % (B UE touch both knees) to be able to pick objects from floor STG Duration 07/22/18 Still Pump Operator Goal (LTG) increase lumbar ROM by 40 % (B UE touch both carreon shafts) to be able to pick objects from floor LTG Duration 08/21/18 1 Impairment pain Short Term Goal (STG) reduce LBP by 2 points during bending over counter and standing position STG Duration 07/22/18 Still Pump Operator Goal (LTG) reduce LBP by 2 points during bending over counter and standing position LTG Duration 08/21/18 Assessment Summary Assessment Pt continues to require repeated Evaristo maneuvers for treatment of ongoing BPPV, which could indicate that her symptoms are caused by a separate condition, however she is improving severity-enriquez , and all her symptoms continue to be very consistent with BPPV. Will continue treatment as tolerated, with occasional reassessments to ensure no other causes. Physical Therapy Plan Frequency and Duration Frequency of Treatment 2x/Week Duration of Treatment 3 months Plan of Care Start Date 06/21/18 Plan of Care End Date 09/21/18 Next Visit Focus/Plan Next Note Type Treatment Note Next Visit Plan Progress balance, reassess positional testing, LE strengthening.
--- NOTE | 2018-07-07 15:15 | PT.OTN ---
Current Diagnoses Repeated falls (07/07/18) Physical Therapy Treatment Note PT-OP-A Visit Information Start: 04/20/18 12:26 Freq: Status: Active Protocol: Document 07/07/18 14:35 DCW (Rec: 07/07/18 15:14 DCW [id number]) Out-Patient Physical Therapy Visit Information Visit Information Visit Type Treatment Note Visit Note 2019 visit 13 Visit Start Time 14:35 Visit Stop Time 15:15 Total Visit Minutes 40 Visit Number 6/10 Number of EXCAVATOR BACKHOE OPERATOR Visits 0 Evaluation Information Evaluation Date 04/20/18 PT-OP-B Current Condition Start: 04/20/18 12:26 Freq: Status: Active Protocol: Document 04/20/18 11:15 HH (Rec: 04/20/18 13:23 HH [id number]) Current Condition History of Current Condition Onset Date 2015 Current Complaints LBP Stenosis, frequent falls, difficulty in walking, generalized weakness History of Current Condition Pt is a 77 yo pleasant female with 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 PMH includes R ORIF 11/04/17 after a fall, bowel abdominal surgery in Jan, L multiple rib fx in Dec after a fall, stent 4years ago and R kidney removal 2 years ago. Pt admitted to SNF to receive rehab from early December after her rib injury from a fall until 03/16/18. Pt has been receiving home health PT (Radha) for overall mobility and strength training for ADLs and IADLs until last week. Pt reports she has at least 4 falls over the past year due to her sense of poor balance and her L leg often gives out . Pt also reports she was not able to recover from her last two falls who had to call car ferrier. She states her back pain started years ago who is unable to stand >5 mins or maintain in trunk flexion position more than a minute while cooking. She currently lives at a 1 story house alone with 5 AUSTYN at front but no AUSTYN at backdoor. Pt uses back entrance at all time due to poor balance. Pt also have a walk in shower with slide in shower chair and grab around the bathroom. Pt states she uses wall and counters for support to amb around the house and uses SPC for community mobility. Pt also drives for IADLs. Treatment Goals Patient/Caregiver Goals To be able to perform fall recovery independently to be able to maintain standing in pain free > 5 mins to be able to bend over at the counter for dish washing and cooking without pain Prior Functional Status Baseline Function- ADL's Independent Baseline Function- Mobility Independent Baseline Function- Gait with SPC on R side Baseline Function- Work/School unable to stand >5 mins due to pain unable to bend over at the counter for dish washing and cooking more than a minute Current Functional Impairments (Reported) Functional Limitations- Mobility/Gait stair negotiation with increased time taken and use of handrails SPC on right side use of counter and wall for support for home mobility PT-OP-C Subjective Start: 04/20/18 12:26 Freq: Status: Active Protocol: Document 07/07/18 14:35 DCW (Rec: 07/07/18 15:14 DCW [id number]) OP-PT Subjective Patient Comments Patient Comments Pt reports her hips are a little sore today after a Wii Bowling tournement yesterday, but notes that she has been a lot less dizzy this week. PT-OP-D Balance Start: 04/20/18 12:26 Freq: Status: Active Protocol: Document 06/21/18 14:30 DCW (Rec: 06/21/18 15:03 DCW [id number]) Balance Tests [place] Balance Test [place] Balance Test Score 46/56 [place] Impairment Rating 1 to 19% Impaired (Score 45-55 ) [place] Balance Assessment Evaluation Sitting to Standing Ability Independent w/out Hands Unsupported Stance Safely- 2 minutes Sitting Unsupported, Feet on Floor Safely- 2 minutes Standing to Sitting Ability Safely, Minimal Hand Use Transfer Ability Safely, Minimal Hand Use Unsupported Stance- Eyes Closed Safely, 10 seconds Unsupported Stance- Eyes Open Independent, 1 minute Reaching Forward Standing Safely, 5 inches Pick- Up Object From Floor Independent/Safe Look Behind Shoulder - Standing Shifts Weight Well Turning 360 Degrees Turns slowly, but safely Unsupported Stance, Alternating Feet on 4 Steps w/Supervision Stair Unsupported Tandem Stance Small Step- 30 seconds Unilateral Leg Stance Lifts Leg/Unable to Hold Total Score [place] Total Score (out of 56 points) 46 [place] Impairment Rating 1 to 19% Impaired (Score 45-55 ) PT-OP-G Mobility & Gait Start: 04/20/18 12:26 Freq: Status: Active Protocol: Document 04/20/18 11:15 HH (Rec: 04/20/18 13:23 HH [email or web address]) OP Gait Assessment Gait Deviations General Gait Pattern Decreased Stride Length Decreased Feet Clearance Flexed Trunk Factors Limiting Gait Function Factors Limiting Gait Function Decreased Activity Tolerance Decreased Strength Limited Range of Motion Pain Poor Balance Poor Safety Awareness Comments Gait Comments amb with SPC on right side with R hip drop PT-OP-J Posture/Palpation/Skin Start: 04/20/18 12:26 Freq: Status: Active Protocol: Document 06/21/18 14:30 DCW (Rec: 06/21/18 15:03 DCW [id number]) Posture Evaluation Position Standing Evaluation View Lateral Head/C-Spine Posture Forward Head T-Spine Posture Increased Kyphosis L-Spine Posture Flattened Shoulder Posture (L) Rounded (R) Rounded (L) Forward (R) Forward Scapula Posture (L) Protracted (R) Protracted Comments Posture Comments significant thoracic kyphosis PT-OP-K Range of Motion Start: 04/20/18 12:26 Freq: Status: Active Protocol: Document 04/20/18 11:15 HH (Rec: 04/20/18 13:23 HH [email or web address]) Lumbar Spine Range of Motion Lumbar Spine Percentage Flexion 20 Extension 40 Rotation Left 60 Rotation Right 60 Lateral Flexion Left 60 Lateral Flexion Right 60 ROM Limitations Soft Tissue Tightness Muscle Weakness Pain PT-OP-M Strength Start: 04/20/18 12:26 Freq: Status: Active Protocol: Document 06/21/18 14:30 DCW (Rec: 06/21/18 15:03 DCW [id number]) Trunk Strength Trunk Manual Muscle Testing Testing Position Sitting Flexion 4- Good- Extension 4 Good Rotation Left 4 Good Rotation Right 4 Good Lateral Flexion Left 4 Good Lateral Flexion Right 4 Good Hip Strength Hip Manual Muscle Testing Right Flexion (L2) 4- Good- Abduction 4- Good- Adduction 4 Good Left Flexion (L2) 4 Good Abduction 4- Good- Adduction 4 Good External Rotation 4 Good Internal Rotation 4 Good PT-OP-O Vestibular Start: 04/20/18 12:26 Freq: Status: Active Protocol: Document 06/21/18 14:30 DCW (Rec: 06/21/18 15:03 DCW [id number]) Vestibular Assessment Positional Testing Raymond-Hallpike Positive Left Positive Right Upbeating < 60 Seconds PT-OP-Q Treatments Start: 04/20/18 12:26 Freq: Status: Active Protocol: Document 07/07/18 14:35 DCW (Rec: 07/07/18 15:14 DCW [id number]) Cardio Equipment Recumbent Elliptical (Biodex) Duration (Minutes) 6 Resistance 5 Seat Position 7 Gym Equipment Shuttle Recovery Unilateral Squats Resistance 37# Shuttle Recovery Platform Stable Reps/Time 2x15 Bilateral Squats Resistance 62# Shuttle Recovery Platform Stable Reps/Time 2x15 Shuttle Balance Red Details Wide GENIE (EO/EC), Staggered Stance, Lateral weight shift Therapeutic Exercises Other Exercises Resisted Forward/Retro-walking Other Exercise Name Resisted Forward/Retro-walking Side bilateral Resistance Yellow Equipment Used T-band Reps/Minutes 4 lengths of //bars Resisted Side-stepping Other Exercise Name Resisted Side-stepping Side bilateral Resistance Yellow Equipment Used T-band Reps/Minutes 4 lengths of //bars Neuro Re-Education Treatment Balance Activities Rocker board Surface firm Equipment lateral Comments in // bars DL standing Surface Ervin foam Comments EO/EC PT-OP-R Modalities Start: 04/20/18 12:26 Freq: Status: Active Protocol: Document 05/12/18 09:45 DCW (Rec: 05/12/18 10:30 DCW [id number]) Hot Pack/Cold Pack Treatment Hot Pack Location low and upper back Patient Position Sitting Treatment Duration (minutes) 10 PT-OP-T Assessment and Plan Start: 04/20/18 12:26 Freq: Status: Active Protocol: Document 07/07/18 14:35 DCW (Rec: 07/07/18 15:14 DCW [id number]) Physical Therapy Assessment Impairments Impairments Activity Tolerance Balance Functional Activities Functional Mobility Gait Pain Posture ROM Soft Tissue Mobility Strength Transfers Vestibular Goals 5 Impairment Raymond-Hallpike Short Term Goal (STG) Negative right hallpike STG Duration 07/22/18 4 Impairment fall recovery Supervisor Of Officials Goal (LTG) able to perform fall recovery independently with the use of chair LTG Duration 08/21/18 3 Impairment balance Short Term Goal (STG) Increase [place] score by 4 points for fall prevention STG Duration Met Supervisor Of Officials Goal (LTG) Increase [place] score to 50/56 for fall prevention LTG Duration 8 weeks 2 Impairment ROM Short Term Goal (STG) increase lumbar ROM by 20 % (B UE touch both knees) to be able to pick objects from floor STG Duration 07/22/18 Supervisor Of Officials Goal (LTG) increase lumbar ROM by 40 % (B UE touch both carreon shafts) to be able to pick objects from floor LTG Duration 08/21/18 1 Impairment pain Short Term Goal (STG) reduce LBP by 2 points during bending over counter and standing position STG Duration 07/22/18 Supervisor Of Officials Goal (LTG) reduce LBP by 2 points during bending over counter and standing position LTG Duration 08/21/18 Assessment Summary Assessment Pt had reduced symptoms of vertigo today, no positional testing performed, will retest next week. Physical Therapy Plan Frequency and Duration Frequency of Treatment 2x/Week Duration of Treatment 3 months Plan of Care Start Date 06/21/18 Plan of Care End Date 09/21/18 Next Visit Focus/Plan Next Note Type Treatment Note Next Visit Plan Progress balance, reassess positional testing, LE strengthening.
--- NOTE | 2018-07-12 15:11 | PT.OTN ---
Current Diagnoses Repeated falls (07/12/18) Physical Therapy Treatment Note PT-OP-A Visit Information Start: 04/20/18 12:26 Freq: Status: Active Protocol: Document 07/12/18 14:30 DCW (Rec: 07/12/18 15:11 DCW [id number]) Out-Patient Physical Therapy Visit Information Visit Information Visit Type Treatment Note Visit Note 2019 visit 14 Visit Start Time 14:30 Visit Stop Time 15:15 Total Visit Minutes 45 Visit Number 7 Number of CHARGEBACK SPECIALIST Visits 0 Evaluation Information Evaluation Date 04/20/18 PT-OP-B Current Condition Start: 04/20/18 12:26 Freq: Status: Active Protocol: Document 04/20/18 11:15 HH (Rec: 04/20/18 13:23 HH [email or web address]) Current Condition History of Current Condition Onset Date 2015 Current Complaints LBP Stenosis, frequent falls, difficulty in walking, generalized weakness History of Current Condition Pt is a 77 yo pleasant female with 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 PMH includes R ORIF 11/04/17 after a fall, bowel abdominal surgery in Jan, L multiple rib fx in Dec after a fall, stent 4years ago and R kidney removal 2 years ago. Pt admitted to SNF to receive rehab from early December after her rib injury from a fall until 03/16/18. Pt has been receiving home health PT (Radha) for overall mobility and strength training for ADLs and IADLs until last week. Pt reports she has at least 4 falls over the past year due to her sense of poor balance and her L leg often gives out . Pt also reports she was not able to recover from her last two falls who had to call earth science technician. She states her back pain started years ago who is unable to stand >5 mins or maintain in trunk flexion position more than a minute while cooking. She currently lives at a 1 story house alone with 5 AUSTYN at front but no AUSTYN at backdoor. Pt uses back entrance at all time due to poor balance. Pt also have a walk in shower with slide in shower chair and grab around the bathroom. Pt states she uses wall and counters for support to amb around the house and uses SPC for community mobility. Pt also drives for IADLs. Treatment Goals Patient/Caregiver Goals To be able to perform fall recovery independently to be able to maintain standing in pain free > 5 mins to be able to bend over at the counter for dish washing and cooking without pain Prior Functional Status Baseline Function- ADL's Independent Baseline Function- Mobility Independent Baseline Function- Gait with SPC on R side Baseline Function- Work/School unable to stand >5 mins due to pain unable to bend over at the counter for dish washing and cooking more than a minute Current Functional Impairments (Reported) Functional Limitations- Mobility/Gait stair negotiation with increased time taken and use of handrails SPC on right side use of counter and wall for support for home mobility PT-OP-C Subjective Start: 04/20/18 12:26 Freq: Status: Active Protocol: Document 07/12/18 14:30 DCW (Rec: 07/12/18 15:11 DCW [id number]) OP-PT Subjective Patient Comments Patient Comments Pt reports she is still having a few dizziness symptoms, but overall feels she is improving. PT-OP-D Balance Start: 04/20/18 12:26 Freq: Status: Active Protocol: Document 06/21/18 14:30 DCW (Rec: 06/21/18 15:03 DCW [id number]) Balance Tests [place] Balance Test [place] Balance Test Score 46/56 [place] Impairment Rating 1 to 19% Impaired (Score 45-55 ) [place] Balance Assessment Evaluation Sitting to Standing Ability Independent w/out Hands Unsupported Stance Safely- 2 minutes Sitting Unsupported, Feet on Floor Safely- 2 minutes Standing to Sitting Ability Safely, Minimal Hand Use Transfer Ability Safely, Minimal Hand Use Unsupported Stance- Eyes Closed Safely, 10 seconds Unsupported Stance- Eyes Open Independent, 1 minute Reaching Forward Standing Safely, 5 inches Pick- Up Object From Floor Independent/Safe Look Behind Shoulder - Standing Shifts Weight Well Turning 360 Degrees Turns slowly, but safely Unsupported Stance, Alternating Feet on 4 Steps w/Supervision Stair Unsupported Tandem Stance Small Step- 30 seconds Unilateral Leg Stance Lifts Leg/Unable to Hold Total Score [place] Total Score (out of 56 points) 46 [place] Impairment Rating 1 to 19% Impaired (Score 45-55 ) PT-OP-G Mobility & Gait Start: 04/20/18 12:26 Freq: Status: Active Protocol: Document 04/20/18 11:15 HH (Rec: 01/02/19 13:23 HH [email or web address]) OP Gait Assessment Gait Deviations General Gait Pattern Decreased Stride Length Decreased Feet Clearance Flexed Trunk Factors Limiting Gait Function Factors Limiting Gait Function Decreased Activity Tolerance Decreased Strength Limited Range of Motion Pain Poor Balance Poor Safety Awareness Comments Gait Comments amb with SPC on right side with R hip drop PT-OP-J Posture/Palpation/Skin Start: 04/20/18 12:26 Freq: Status: Active Protocol: Document 06/21/18 14:30 DCW (Rec: 06/21/18 15:03 DCW [id number]) Posture Evaluation Position Standing Evaluation View Lateral Head/C-Spine Posture Forward Head T-Spine Posture Increased Kyphosis L-Spine Posture Flattened Shoulder Posture (L) Rounded (R) Rounded (L) Forward (R) Forward Scapula Posture (L) Protracted (R) Protracted Comments Posture Comments significant thoracic kyphosis PT-OP-K Range of Motion Start: 04/20/18 12:26 Freq: Status: Active Protocol: Document 04/20/18 11:15 HH (Rec: 04/20/18 13:23 HH [email or web address]) Lumbar Spine Range of Motion Lumbar Spine Percentage Flexion 20 Extension 40 Rotation Left 60 Rotation Right 60 Lateral Flexion Left 60 Lateral Flexion Right 60 ROM Limitations Soft Tissue Tightness Muscle Weakness Pain PT-OP-M Strength Start: 04/20/18 12:26 Freq: Status: Active Protocol: Document 06/21/18 14:30 DCW (Rec: 06/21/18 15:03 DCW [id number]) Trunk Strength Trunk Manual Muscle Testing Testing Position Sitting Flexion 4- Good- Extension 4 Good Rotation Left 4 Good Rotation Right 4 Good Lateral Flexion Left 4 Good Lateral Flexion Right 4 Good Hip Strength Hip Manual Muscle Testing Right Flexion (L2) 4- Good- Abduction 4- Good- Adduction 4 Good Left Flexion (L2) 4 Good Abduction 4- Good- Adduction 4 Good External Rotation 4 Good Internal Rotation 4 Good PT-OP-O Vestibular Start: 04/20/18 12:26 Freq: Status: Active Protocol: Document 06/21/18 14:30 DCW (Rec: 06/21/18 15:03 DCW [id number]) Vestibular Assessment Positional Testing [place]-Hallpike Positive Left Positive Right Upbeating < 60 Seconds PT-OP-Q Treatments Start: 04/20/18 12:26 Freq: Status: Active Protocol: Document 07/12/18 14:30 DCW (Rec: 07/12/18 15:11 DCW [id number]) Cardio Equipment Recumbent Elliptical (Biodex) Duration (Minutes) 6 Resistance 5 Seat Position 9 Gym Equipment Shuttle Recovery Unilateral Squats Resistance 37# Shuttle Recovery Platform Stable Reps/Time 2x15 Bilateral Squats Resistance 62# Shuttle Recovery Platform Stable Reps/Time 2x15 Shuttle Balance Red Details Wide GENIE (EO/EC), Staggered Stance Therapeutic Exercises Other Exercises Resisted Forward/Retro-walking Other Exercise Name Resisted Forward/Retro-walking Side bilateral Resistance Yellow Equipment Used T-band Reps/Minutes 4 lengths of //bars Resisted Side-stepping Other Exercise Name Resisted Side-stepping Side bilateral Resistance Yellow Equipment Used T-band Reps/Minutes 4 lengths of //bars Manual Therapy Treatment Other Other Manual Treatments Positional Testing: Negative R [place]-Hallpike Neuro Re-Education Treatment Balance Activities DL standing Surface Ervin foam Comments EO/EC tandem standing Details Tandem Stance Surface firm PT-OP-R Modalities Start: 04/20/18 12:26 Freq: Status: Active Protocol: Document 05/12/18 09:45 DCW (Rec: 05/12/18 10:30 DCW [id number]) Hot Pack/Cold Pack Treatment Hot Pack Location low and upper back Patient Position Sitting Treatment Duration (minutes) 10 PT-OP-T Assessment and Plan Start: 04/20/18 12:26 Freq: Status: Active Protocol: Document 07/12/18 14:30 DCW (Rec: 07/12/18 15:11 DCW [id number]) Physical Therapy Assessment Impairments Impairments Activity Tolerance Balance Functional Activities Functional Mobility Gait Pain Posture ROM Soft Tissue Mobility Strength Transfers Vestibular Goals 5 Impairment [place]-Hallpike Short Term Goal (STG) Negative right hallpike STG Duration 07/22/18 4 Impairment fall recovery Longterm Goal (LTG) able to perform fall recovery independently with the use of chair LTG Duration 08/21/18 3 Impairment balance Short Term Goal (STG) Increase [place] score by 4 points for fall prevention STG Duration Met Senior Stock Plan Administrator Goal (LTG) Increase [place] score to 50/56 for fall prevention LTG Duration 8 weeks 2 Impairment ROM Short Term Goal (STG) increase lumbar ROM by 20 % (B UE touch both knees) to be able to pick objects from floor STG Duration 07/22/18 Longterm Goal (LTG) increase lumbar ROM by 40 % (B UE touch both carreon shafts) to be able to pick objects from floor LTG Duration 08/21/18 1 Impairment pain Short Term Goal (STG) reduce LBP by 2 points during bending over counter and standing position STG Duration 07/22/18 Longterm Goal (LTG) reduce LBP by 2 points during bending over counter and standing position LTG Duration 08/21/18 Assessment Summary Assessment Positional testing negative today, pt did very well during balance training. Physical Therapy Plan Frequency and Duration Frequency of Treatment 2x/Week Duration of Treatment 3 months Plan of Care Start Date 06/21/18 Plan of Care End Date 09/21/18 Next Visit Focus/Plan Next Note Type Treatment Note Next Visit Plan Progress balance, reassess positional testing, LE strengthening.
--- NOTE | 2018-07-14 15:04 | PT.OTN ---
Current Diagnoses Repeated falls (07/14/18) Physical Therapy Treatment Note PT-OP-A Visit Information Start: 04/20/18 12:26 Freq: Status: Active Protocol: Document 07/14/18 14:30 DCW (Rec: 07/14/18 15:02 DCW [id number]) Out-Patient Physical Therapy Visit Information Visit Information Visit Type Discharge Summary Visit Note 2019 visit 15 Visit Start Time 14:30 Visit Stop Time 15:15 Total Visit Minutes 45 Visit Number 8/10 Number of HAIRSPRING CUTTER Visits 0 Evaluation Information Evaluation Date 04/20/18 PT-OP-B Current Condition Start: 04/20/18 12:26 Freq: Status: Active Protocol: Document 04/20/18 11:15 HH (Rec: 04/20/18 13:23 HH [email or web address]) Current Condition History of Current Condition Onset Date 2015 Current Complaints LBP Stenosis, frequent falls, difficulty in walking, generalized weakness History of Current Condition Pt is a 77 yo pleasant female with 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 PMH includes R ORIF 11/04/17 after a fall, bowel abdominal surgery in Jan, L multiple rib fx in Dec after a fall, stent 4years ago and R kidney removal 2 years ago. Pt admitted to SNF to receive rehab from early December after her rib injury from a fall until 03/16/18. Pt has been receiving home health PT (Radha) for overall mobility and strength training for ADLs and IADLs until last week. Pt reports she has at least 4 falls over the past year due to her sense of poor balance and her L leg often gives out . Pt also reports she was not able to recover from her last two falls who had to call button puncher. She states her back pain started years ago who is unable to stand >5 mins or maintain in trunk flexion position more than a minute while cooking. She currently lives at a 1 story house alone with 5 AUSTYN at front but no AUSTYN at backdoor. Pt uses back entrance at all time due to poor balance. Pt also have a walk in shower with slide in shower chair and grab around the bathroom. Pt states she uses wall and counters for support to amb around the house and uses SPC for community mobility. Pt also drives for IADLs. Treatment Goals Patient/Caregiver Goals To be able to perform fall recovery independently to be able to maintain standing in pain free > 5 mins to be able to bend over at the counter for dish washing and cooking without pain Prior Functional Status Baseline Function- ADL's Independent Baseline Function- Mobility Independent Baseline Function- Gait with SPC on R side Baseline Function- Work/School unable to stand >5 mins due to pain unable to bend over at the counter for dish washing and cooking more than a minute Current Functional Impairments (Reported) Functional Limitations- Mobility/Gait stair negotiation with increased time taken and use of handrails SPC on right side use of counter and wall for support for home mobility PT-OP-C Subjective Start: 04/20/18 12:26 Freq: Status: Active Protocol: Document 07/14/18 14:30 DCW (Rec: 07/14/18 15:02 DCW [id number]) OP-PT Subjective Patient Comments Patient Comments Pt notes that today is her last scheduled appointment, and she has mixed feelings about it. Acknowledges that she is better than she used to be, feels much more secure walking with her cane, and is no longer fearful about falling, but admits she is just not quite as good as I'd like to be. PT-OP-D Balance Start: 04/20/18 12:26 Freq: Status: Active Protocol: Document 07/14/18 14:30 DCW (Rec: 07/14/18 15:04 DCW [id number]) Balance Tests [place] Balance Test [place] Balance Test Score 49/56 [place] Impairment Rating 1 to 19% Impaired (Score 45-55 ) [place] Balance Assessment Evaluation Sitting to Standing Ability Independent w/out Hands Unsupported Stance Safely- 2 minutes Sitting Unsupported, Feet on Floor Safely- 2 minutes Standing to Sitting Ability Safely, Minimal Hand Use Transfer Ability Safely, Minimal Hand Use Unsupported Stance- Eyes Closed Safely, 10 seconds Unsupported Stance- Eyes Open Independent, 1 minute Reaching Forward Standing Safely, 5 inches Pick- Up Object From Floor Independent/Safe Look Behind Shoulder - Standing Shifts Weight Well Turning 360 Degrees Turns Bilateral, < 4 secs Unsupported Stance, Alternating Feet on 4 Steps w/Supervision Stair Unsupported Tandem Stance Holds Tandem- 30 seconds Unilateral Leg Stance Lifts Leg/Unable to Hold Total Score [place] Total Score (out of 56 points) 49 [place] Impairment Rating 1 to 19% Impaired (Score 45-55 ) PT-OP-G Mobility & Gait Start: 04/20/18 12:26 Freq: Status: Active Protocol: Document 04/20/18 11:15 HH (Rec: 04/20/18 13:23 HH [email or web address]) OP Gait Assessment Gait Deviations General Gait Pattern Decreased Stride Length Decreased Feet Clearance Flexed Trunk Factors Limiting Gait Function Factors Limiting Gait Function Decreased Activity Tolerance Decreased Strength Limited Range of Motion Pain Poor Balance Poor Safety Awareness Comments Gait Comments amb with SPC on right side with R hip drop PT-OP-J Posture/Palpation/Skin Start: 04/20/18 12:26 Freq: Status: Active Protocol: Document 06/21/18 14:30 DCW (Rec: 06/21/18 15:03 DCW [id number]) Posture Evaluation Position Standing Evaluation View Lateral Head/C-Spine Posture Forward Head T-Spine Posture Increased Kyphosis L-Spine Posture Flattened Shoulder Posture (L) Rounded (R) Rounded (L) Forward (R) Forward Scapula Posture (L) Protracted (R) Protracted Comments Posture Comments significant thoracic kyphosis PT-OP-K Range of Motion Start: 04/20/18 12:26 Freq: Status: Active Protocol: Document 07/14/18 14:30 DCW (Rec: 07/14/18 15:04 DCW [id number]) Lumbar Spine Range of Motion Lumbar Spine Percentage Flexion 50 Comments Pt able to reach down bilaterally to mid-calf, meeting original goal PT-OP-M Strength Start: 04/20/18 12:26 Freq: Status: Active Protocol: Document 06/21/18 14:30 DCW (Rec: 06/21/18 15:03 DCW [id number]) Trunk Strength Trunk Manual Muscle Testing Testing Position Sitting Flexion 4- Good- Extension 4 Good Rotation Left 4 Good Rotation Right 4 Good Lateral Flexion Left 4 Good Lateral Flexion Right 4 Good Hip Strength Hip Manual Muscle Testing Right Flexion (L2) 4- Good- Abduction 4- Good- Adduction 4 Good Left Flexion (L2) 4 Good Abduction 4- Good- Adduction 4 Good External Rotation 4 Good Internal Rotation 4 Good PT-OP-O Vestibular Start: 04/20/18 12:26 Freq: Status: Active Protocol: Document 07/14/18 14:30 DCW (Rec: 07/14/18 15:04 DCW [id number]) Vestibular Assessment Positional Testing [place]-Hallpike Negative Left Negative Right PT-OP-Q Treatments Start: 04/20/18 12:26 Freq: Status: Active Protocol: Document 07/14/18 14:30 DCW (Rec: 07/14/18 15:02 DCW [id number]) Cardio Equipment Recumbent Elliptical (Biodex) Duration (Minutes) 6 Resistance 5 Seat Position 9 Therapeutic Exercises Other Exercises Resisted Forward/Retro-walking Other Exercise Name Resisted Forward/Retro-walking Side bilateral Resistance Yellow Equipment Used T-band Reps/Minutes 4 lengths of //bars Resisted Side-stepping Other Exercise Name Resisted Side-stepping Side bilateral Resistance Yellow Equipment Used T-band Reps/Minutes 4 lengths of //bars Manual Therapy Treatment Other Other Manual Treatments Positional Testing: Negative R [place]-Hallpike Neuro Re-Education Treatment Balance Activities [place] Testing Comments 49/56 PT-OP-R Modalities Start: 04/20/18 12:26 Freq: Status: Active Protocol: Document 05/12/18 09:45 DCW (Rec: 05/12/18 10:30 DCW [id number]) Hot Pack/Cold Pack Treatment Hot Pack Location low and upper back Patient Position Sitting Treatment Duration (minutes) 10 PT-OP-T Assessment and Plan Start: 04/20/18 12:26 Freq: Status: Active Protocol: Document 07/14/18 14:30 DCW (Rec: 07/14/18 15:02 DCW [id number]) Physical Therapy Assessment Goals 5 Impairment [place]-Hallpike Short Term Goal (STG) Negative right hallpike STG Duration Met 4 Impairment fall recovery Family Dinner Service Specialist Goal (LTG) able to perform fall recovery independently with the use of chair LTG Duration Met 3 Impairment balance Short Term Goal (STG) Increase [place] score by 4 points for fall prevention STG Duration Met Family Dinner Service Specialist Goal (LTG) Increase [place] score to 50/56 for fall prevention LTG Duration Nearly met - 49/56 2 Impairment ROM Short Term Goal (STG) increase lumbar ROM by 20 % (B UE touch both knees) to be able to pick objects from floor STG Duration Met Family Dinner Service Specialist Goal (LTG) increase lumbar ROM by 40 % (B UE touch both carreon shafts) to be able to pick objects from floor LTG Duration Met 1 Impairment pain Short Term Goal (STG) reduce LBP by 2 points during bending over counter and standing position STG Duration Met Half-Way Goal (LTG) reduce LBP by 2 points during bending over counter and standing position LTG Duration Met Progress Towards Goals Progress Towards Goals Goals Met Progress Comments Pt met all goals except [place] score, one point away from goal of 50/56 Assessment Summary Assessment Pt met all goals, doing very well, reports she has a greatly reduced fear of falling and has felt like her walking has been much more stable. Pt appropriate for discharge at this time, will require a new referral in order to return to physical therapy in the future. Physical Therapy Plan Frequency and Duration Frequency of Treatment 2x/Week Duration of Treatment 3 months Plan of Care Start Date 06/21/18 Plan of Care End Date 09/21/18 Discharge Physical Therapy Discharge Reasons Goals Met Next Visit Focus/Plan Next Note Type Discharge Summary
== END 2018-11-03 13:50 ==
LOC: PHYS 14:30
PROVIDERS: Family Provider Physician Assistant; PCP Physician Assistant; Visit Provider Physician Assistant
DX: R29.6 Repeated falls (principal)
CPT/HCPCS: 95992; 97110; 97112; 97140; 97163

== ENCOUNTER → 2018-11-23 14:28 | Oncology outpatient (ONC) | payer MEDICARE, SELFPAY ==
[2018-01-24 18:59] VITALS: BMI 25.8
[2018-11-23 15:21] VITALS: BP 161/101; PULSE 81; RESP 20; TEMP 37.3; O2SAT 97
[2018-11-23] MEDS: ZOLEDRONIC ACID 5 MG in SODIUM CHLORIDE 0.9% 100 ML 318.75 ML IV (15:53)
== END ==
LOC: ONC 14:32
PROVIDERS: Family Provider Physician Assistant; PCP Physician Assistant; Visit Provider Physician Assistant
DX: M81.0 Age-related osteoporosis without current pathological fracture (principal)
CPT/HCPCS: 96365; J3489

== ENCOUNTER 2018-11-29 12:00 | Outpatient (RCR) | payer MEDICARE, SELFPAY ==
[2018-01-24 18:59] VITALS: BMI 25.8
--- NOTE | 2018-11-24 13:00 | PT.OIE ---
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, unilateral (Acute) Small bowel obstruction, partial (Acute) Age-related osteoporosis without current pathological fracture (Chronic) Aortic aneurysm of unspecified site, without rupture (Chronic) Chronic pain syndrome (Chronic) Essential (primary) hypertension (Chronic) GERD (gastroesophageal reflux disease) (Chronic) Headache (Chronic) Heart failure (Chronic) Hyperglycemia (Chronic) Hyperlipidemia (Chronic) Insomnia (Chronic) Major depressive disorder, recurrent, moderate (Chronic) Mixed hyperlipidemia (Chronic) 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) Sleep apnea (Chronic) Spinal stenosis of lumbar region (Chronic) Vitamin D deficiency (Chronic) History of fracture of right hip (Resolved) Past Surgical History (Last Reviewed 01/25/18 @ 19:07 by Joel Castaneda MD) History of lumpectomy (Acute) History of nephrectomy (Acute) History of repair of aneurysm of abdominal aorta using endovascular stent graft (Acute) Provider Visit Care Team Role Provider Type Maryanne Gaviria PA-C Attending Provider Advanced Salesperson Burial Needs Primary Care Provider Specialty: Internal Medicine Address: [address] [place] [address], [facility] Email: Physical Therapy Initial Evaluation PT-OP-A Visit Information Start: 11/24/18 09:40 Freq: Status: Active Protocol: Document 11/24/18 12:00 DC (Rec: 11/25/18 09:45 [facility] [id number]) Out-Patient Physical Therapy Visit Information Visit Information Visit Type Initial Evaluation Visit Start Time 12:00 Visit Stop Time 13:00 Total Visit Minutes 60 Visit Number 1 Number of LAB AIDE Visits 0 Evaluation Information Evaluation Date 11/24/18 PT-OP-B Current Condition Start: 11/24/18 09:40 Freq: Status: Active Protocol: Document 11/24/18 12:00 DCW (Rec: 11/25/18 09:45 [facility] [id number]) Current Condition History of Current Condition Onset Date a few months Current Complaints Position-dependent vertigo History of Current Condition Pt is a 78 year old female complaining of a few month history of vertigo. 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 Symptoms are provoked when first laying down in bed, but also she will feel generalized imbalance when up walking around. Pt denies recent hearing changes, tinnitus, diplopia, dysarthria , discoordination, or decreased mentation/ consciousness. Admits that she has fallen recently when she was in her bathroom in the middle of the night. She was sitting on her toilet, and then fell into the tub. Pt is unable to provide any further information about the fall, and is unable to say if she was dizzy at the time or not. Prior Treatments and Tests Prior treatment of R-sided posterior canal BPPV Prior Functional Status Baseline Function- ADL's Modified Independent Baseline Function- Mobility Modified Independent PT-OP-C Subjective Start: 11/24/18 09:40 Freq: Status: Active Protocol: Document 11/24/18 12:00 DCW (Rec: 11/25/18 09:45 DCW [id number]) OP-PT Subjective Patient Comments Patient Comments I think it might be worse than it was last time. Patient Questionnaires Dizziness Handicap Inventory DHI Score 60% DHI Functional Impairment 60 to 79% Impaired (Score 60- 79) PT-OP-O Vestibular Start: 11/24/18 09:40 Freq: Status: Active Protocol: Document 11/24/18 12:00 DCW (Rec: 11/25/18 09:45 DCW [id number]) Vestibular Assessment Screening Tests Vestibular Artery Screen Negative Auditory Tests Parnell Test Negative Rinne Test Negative Air Conduction Results Equal Visual Testing Smooth Pursuits Horizontal Negative Smooth Pursuits Vertical Negative Saccades Horizontal Negative Gaze Evoked Nystagmus With Fixation Negative Gaze Evoked Nystagmus Without Fixation Negative Positional Testing Amelia-Hallpike Positive Left Positive Right Upbeating Downbeating < 60 Seconds > 60 Seconds Rolling Test Positive Left Positive Right > 60 Seconds Comments Vestibular Comments During Kamala-hallpike testing, pt complained of vertigo and demonstrated strong up-beating , torsional nystagmus lasting approximately 10 seconds, which then became a mild, slow downbeating nystagmus which remained until pt was taken out of the postion. This occurred bilaterally. Following Evaristo maneuver, pt then had a conversion to horizontal canal BPPV, shown with geotropic horizontal nystagmus. When laying pt down for a Gufoni maneuver, this geotropic nystagmus became ageotropic nystagmus, which lasted 60+ seconds PT-OP-Q Treatments Start: 11/24/18 09:40 Freq: Status: Active Protocol: Document 11/24/18 12:00 DCW (Rec: 11/25/18 09:45 DCW [id number]) Canalithic Repositioning BPPV Treatment Gufoni Affected Canal(s) Right horizontal canal Reps x1 for cupulolithiasis, x1 for canalithiasis Evaristo Affected Canal(s) Bilateral posterior canal Reps L x1, R x1 PT-OP-T Assessment and Plan Start: 11/24/18 09:40 Freq: Status: Active Protocol: Document 11/24/18 12:00 DCW (Rec: 11/25/18 09:45 DCW [id number]) Physical Therapy Assessment Rehab Potential Rehabilitation Potential Good Evaluation Complexity Number of Personal Factors/Comorbidities 1-2 Number of Body Systems Impaired 3 Clinical Presentation at Evaluation Unstable Impairments Impairments Balance Vestibular Goals 3 Impairment Positive Roll test Rail Transit Operator Goal (LTG) Pt to display negative Roll tetst bilaterally LTG Duration 12/25/18 2 Impairment Positive bilateral Kamala- Hallpike Usp Goal (LTG) Pt to display negative Kamala- hallpike bilaterally LTG Duration 12/25/18 1 Impairment Pt experiences symptoms of vertigo when laying down in bed Usp Goal (LTG) Pt to report no vertigo when in bed over a period of two weeks LTG Duration 12/25/18 Assessment Summary Assessment During left Kamala-Hallpike test, pt complained of vertigo and demonstrated up-beating, torsional nystagmus lasting approximately 10 seconds, which then became a mild, slow downbeating nystagmus which remained until pt was taken out of the position. A left Evaristo was begun, however in position two, pt demonstrated the same consistent down- beating nystagmus. The left Evaristo maneuver was completed, with pt complaining of symptoms in the first and third position, which is normally indicative of a successful treatment. Upon re- testing of the left side, no downbeating or upbeating nystagmus was seen. Due to the downbeating in position two, a right-sided Hallpike was then performed. Pt again complained of vertigo and demonstrated up-beating, torsional nystagmus lasting approximately 10 seconds, which then became a mild, slow downbeating nystagmus which remained until pt was taken out of the position. A right- sided Evaristo was begun. When pt was placed in position two, she displayed geotropic horizontal nystagmus. The Evaristo maneuver was completed. Due to the geotropic nystagmus indicating a conversion to horizontal canal BPPV, a bow test was performed, which indicating a left-sided BPPV. However, upon attempting a left-sided Gufoni maneuver, pt demonstrated ageotropic nystagmus, indicating a conversion from canalithiasis to cupulolithiasis, and as this effects what the bow test shows, she was actually showing right-sided horizontal canal cupulolithiasis. A right sided Gufoni for cupulolithiasis was performed, with pt converting from ageotropic to geotropic, and then a right sided Gufoni for canalithiasis was performed. Pt did not indicate any symptoms upon return to sitting. As pt had already undergone much more testing and CRM than normal, a decision was made at this time to end the therapy session, let pt rest, and schedule a follow-up visit for tomorrow for further testing and CRM as needed. Pending results of next positional tests, most likely cause of sustained downbeating nystagmus would actually be due to an artifact of the loose otoconia on the contralateral side from the side being tested resting on the cupula. Physical Therapy Plan Frequency and Duration Frequency of Treatment 2x/Week Duration of Treatment 8 weeks Plan of Care Start Date 11/24/18 Plan of Care End Date 01/19/19 Therapeutic Interventions Therapeutic Interventions Balance Training Canalithic Repositioning Manual Therapy Neuromuscular Re-education Vestibular Rehabilitation Next Visit Focus/Plan Next Note Type Treatment Note Next Visit Plan Positional testing, CRM
--- NOTE | 2018-11-24 13:00 | PT.OPPOC ---
Current Diagnoses Benign paroxysmal vertigo, unspecified ear (11/24/18) Provider Visit Care Team Role Provider Type Maryanne Gaviria PA-C Attending Provider Advanced Director Of Culture Primary Care Provider Specialty: Internal Medicine Address: [address] [place] [address], [id number] Email: Plan Of Care PT-OP-T Assessment and Plan Start: 11/24/18 09:40 Freq: Status: Active Protocol: Document 11/24/18 12:00 DCW (Rec: 11/25/18 09:45 DCW [id number]) Physical Therapy Assessment Rehab Potential Rehabilitation Potential Good Evaluation Complexity Number of Personal Factors/Comorbidities 1-2 Number of Body Systems Impaired 3 Clinical Presentation at Evaluation Unstable Impairments Impairments Balance Vestibular Goals 3 Impairment Positive Roll test Snf Goal (LTG) Pt to display negative Roll tetst bilaterally LTG Duration 12/25/18 2 Impairment Positive bilateral Kamala- Hallpike Snf Goal (LTG) Pt to display negative Kamala- hallpike bilaterally LTG Duration 12/25/18 1 Impairment Pt experiences symptoms of vertigo when laying down in bed Snf Goal (LTG) Pt to report no vertigo when in bed over a period of two weeks LTG Duration 12/25/18 Assessment Summary Assessment During left [place]-Hallpike test, pt complained of vertigo and demonstrated up-beating, torsional nystagmus lasting approximately 10 seconds, which then became a mild, slow downbeating nystagmus which remained until pt was taken out of the position. A left Evaristo was begun, however in position two, pt demonstrated the same consistent down- beating nystagmus. The left Evaristo maneuver was completed, with pt complaining of symptoms in the first and third position, which is normally indicative of a successful treatment. UPt complained of symptoms in the first and third position, which is normally indicative of a successful treatment. On re-testing of the left side, no downbeating or upbeating nystagmus was seen. Due to the downbeating in position two, a right-sided Hallpike was then performed. Pt again complained of vertigo and demonstrated up-beating, torsional nystagmus lasting approximately 10 seconds, which then became a mild, slow downbeating nystagmus which remained until pt was taken out of the position. A right- sided Evaristo was begun. When pt was placed in position two, she displayed geotropic horizontal nystagmus. The Evaristo maneuver was completed. Due to the geotropic nystagmus indicating a conversion to horizontal canal BPPV, a bow test was performed, which indicating a left-sided BPPV. However, upon attempting a left-sided Gufoni maneuver, pt demonstrated ageotropic nystagmus, indicating a conversion from canalithiasis to cupulolithiasis, and as this effects what the bow test shows, she was actually showing right-sided horizontal canal cupulolithiasis. A right sided Gufoni for cupulolithiasis was performed, with pt converting from ageotropic to geotropic, and then a right sided Gufoni for canalithiasis was performed. Pt did not indicate any symptoms upon return to sitting. As pt had already undergone much more testing and CRM than normal, a decision was made at this time to end the therapy session, let pt rest, and schedule a follow-up visit for tomorrow for further testing and CRM as needed. Physical Therapy Plan Frequency and Duration Frequency of Treatment 2x/Week Duration of Treatment 8 weeks Plan of Care Start Date 11/24/18 Plan of Care End Date 01/19/19 Therapeutic Interventions Therapeutic Interventions Balance Training Canalithic Repositioning Manual Therapy Neuromuscular Re-education Vestibular Rehabilitation Next Visit Focus/Plan Next Note Type Treatment Note Next Visit Plan Positional testing, CRM Plan of Care Dates Plan of Care Start Date 11/24/18 Plan of Care End Date 01/19/19 Please Sign and Return: I have reviewed this Plan of Care and certify that the skilled therapy services above are required to meet the patient?s needs. Physician Signature Date Printed Name and Credentials Clinical Instructor Signature Printed Name and Credentials
--- NOTE | 2018-11-24 13:00 | PT.OIE ---
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, unilateral (Acute) Small bowel obstruction, partial (Acute) Age-related osteoporosis without current pathological fracture (Chronic) Aortic aneurysm of unspecified site, without rupture (Chronic) Chronic pain syndrome (Chronic) Essential (primary) hypertension (Chronic) GERD (gastroesophageal reflux disease) (Chronic) Headache (Chronic) Heart failure (Chronic) Hyperglycemia (Chronic) Hyperlipidemia (Chronic) Insomnia (Chronic) Major depressive disorder, recurrent, moderate (Chronic) Mixed hyperlipidemia (Chronic) 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) Sleep apnea (Chronic) Spinal stenosis of lumbar region (Chronic) Vitamin D deficiency (Chronic) History of fracture of right hip (Resolved) Past Surgical History (Last Reviewed 01/25/18 @ 19:07 by Joel Castaneda MD) History of lumpectomy (Acute) History of nephrectomy (Acute) History of repair of aneurysm of abdominal aorta using endovascular stent graft (Acute) Provider Visit Care Team Role Provider Type Maryanne Gaviria PA-C Attending Provider Advanced Production Editor Primary Care Provider Specialty: Internal Medicine Address: [address] [place] [address], [facility] Email: Physical Therapy Initial Evaluation PT-OP-A Visit Information Start: 11/24/18 09:40 Freq: Status: Active Protocol: Document 11/24/18 12:00 DC (Rec: 11/25/18 09:45 [facility] [id number]) Out-Patient Physical Therapy Visit Information Visit Information Visit Type Initial Evaluation Visit Start Time 12:00 Visit Stop Time 13:00 Total Visit Minutes 60 Visit Number 1 Number of HEALTH OUTCOMES LIAISON Visits 0 Evaluation Information Evaluation Date 11/24/18 PT-OP-B Current Condition Start: 11/24/18 09:40 Freq: Status: Active Protocol: Document 11/24/18 12:00 DCW (Rec: 11/25/18 09:45 [facility] [id number]) Current Condition History of Current Condition Onset Date a few months Current Complaints Position-dependent vertigo History of Current Condition Pt is a 78 year old female complaining of a few month history of vertigo. 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 Symptoms are provoked when first laying down in bed, but also she will feel generalized imbalance when up walking around. Pt denies recent hearing changes, tinnitus, diplopia, dysarthria , discoordination, or decreased mentation/ consciousness. Admits that she has fallen recently when she was in her bathroom in the middle of the night. She was sitting on her toilet, and then fell into the tub. Pt is unable to provide any further information about the fall, and is unable to say if she was dizzy at the time or not. Prior Treatments and Tests Prior treatment of R-sided posterior canal BPPV Prior Functional Status Baseline Function- ADL's Modified Independent Baseline Function- Mobility Modified Independent PT-OP-C Subjective Start: 11/24/18 09:40 Freq: Status: Active Protocol: Document 11/24/18 12:00 DCW (Rec: 11/25/18 09:45 DCW [id number]) OP-PT Subjective Patient Comments Patient Comments I think it might be worse than it was last time. Patient Questionnaires Dizziness Handicap Inventory DHI Score 60% DHI Functional Impairment 60 to 79% Impaired (Score 60- 79) PT-OP-O Vestibular Start: 11/24/18 09:40 Freq: Status: Active Protocol: Document 11/24/18 12:00 DCW (Rec: 11/25/18 09:45 DCW [id number]) Vestibular Assessment Screening Tests Vestibular Artery Screen Negative Auditory Tests Parnell Test Negative Rinne Test Negative Air Conduction Results Equal Visual Testing Smooth Pursuits Horizontal Negative Smooth Pursuits Vertical Negative Saccades Horizontal Negative Gaze Evoked Nystagmus With Fixation Negative Gaze Evoked Nystagmus Without Fixation Negative Positional Testing Brandon-Hallpike Positive Left Positive Right Upbeating Downbeating < 60 Seconds > 60 Seconds Rolling Test Positive Left Positive Right > 60 Seconds Comments Vestibular Comments During Kamala-hallpike testing, pt complained of vertigo and demonstrated strong up-beating , torsional nystagmus lasting approximately 10 seconds, which then became a mild, slow downbeating nystagmus which remained until pt was taken out of the position. This occurred bilaterally. Following Evaristo maneuver, pt then had a conversion to horizontal canal BPPV, shown with geotropic horizontal nystagmus. When laying pt down for a Gufoni maneuver, this geotropic nystagmus became ageotropic nystagmus, which lasted 60+ seconds PT-OP-Q Treatments Start: 11/24/18 09:40 Freq: Status: Active Protocol: Document 11/24/18 12:00 DCW (Rec: 11/25/18 09:45 DCW [id number]) Canalithic Repositioning BPPV Treatment Gufoni Affected Canal(s) Right horizontal canal Reps x1 for cupulolithiasis, x1 for canalithiasis Evaristo Affected Canal(s) Bilateral posterior canal Reps L x1, R x1 PT-OP-T Assessment and Plan Start: 11/24/18 09:40 Freq: Status: Active Protocol: Document 11/24/18 12:00 DCW (Rec: 11/25/18 09:45 DCW [id number]) Physical Therapy Assessment Rehab Potential Rehabilitation Potential Good Evaluation Complexity Number of Personal Factors/Comorbidities 1-2 Number of Body Systems Impaired 3 Clinical Presentation at Evaluation Unstable Impairments Impairments Balance Vestibular Goals 3 Impairment Positive Roll test Wheat Inspector Goal (LTG) Pt to display negative Roll tetst bilaterally LTG Duration 12/25/18 2 Impairment Positive bilateral Brandon- Hallpike Jail Goal (LTG) Pt to display negative Brandon- hallpike bilaterally LTG Duration 12/25/18 1 Impairment Pt experiences symptoms of vertigo when laying down in bed Wheat Inspector Goal (LTG) Pt to report no vertigo when in bed over a period of two weeks LTG Duration 12/25/18 Assessment Summary Assessment During left Brandon-Hallpike test, pt complained of vertigo and demonstrated up-beating, torsional nystagmus lasting approximately 10 seconds, which then became a mild, slow downbeating nystagmus which remained until pt was taken out of the position. A left Evaristo was begun, however in position two, pt demonstrated the same consistent down- beating nystagmus. The left Evaristo maneuver was completed, with pt complaining of symptoms in the first and third position, which is normally indicative of a successful treatment. UPt complained of symptoms in the first and third position, which is normally indicative of a successful treatment on re -testing of the left side, no downbeating or upbeating nystagmus was seen. Due to the downbeating in position two, a right-sided Hallpike was then performed. Pt again complained of vertigo and demonstrated up-beating, torsional nystagmus lasting approximately 10 seconds, which then became a mild, slow downbeating nystagmus which remained until pt was taken out of the postion. A right- sided Evaristo was begun. When pt was placed in position two, she displayed geotropic horizontal nystagmus. The Evaristo maneuver was completed. Due to the geotropic nystagmus indicating a conversion to horizontal canal BPPV, a bow test was performed, which indicating a left-sided BPPV. However, upon attempting a left-sided Gufoni maneuver, pt demonstrated ageotropic nystagmus, indicating a conversion from canalithiasis to cupulolithiasis, and as this effects what the bow test shows, she was actually showing right-sided horizontal canal cupulolithiasis. A right sided Gufoni for cupulolithiasis was performed, with pt converting from ageotropic to geotropic, and then a right sided Gufoni for canalithiasis was performed. Pt did not indicate any symptoms upon return to sitting. As pt had already undergone much more testing and CRM than normal, a decision was made at this time to end the therapy session, let pt rest, and schedule a follow-up visit for tomorrow for further testing and CRM as needed. Physical Therapy Plan Frequency and Duration Frequency of Treatment 2x/Week Duration of Treatment 8 weeks Plan of Care Start Date 11/24/18 Plan of Care End Date 01/19/19 Therapeutic Interventions Therapeutic Interventions Balance Training Canalithic Repositioning Manual Therapy Neuromuscular Re-education Vestibular Rehabilitation Next Visit Focus/Plan Next Note Type Treatment Note Next Visit Plan Positional testing, CRM
--- NOTE | 2018-11-25 13:43 | PT.OTN ---
Current Diagnoses Benign paroxysmal vertigo, unspecified ear (11/25/18) Physical Therapy Treatment Note PT-OP-A Visit Information Start: 11/24/18 09:40 Freq: Status: Active Protocol: Document 11/25/18 10:30 DCW (Rec: 11/25/18 13:43 DCW [id number]) Out-Patient Physical Therapy Visit Information Visit Information Visit Type Treatment Note Visit Start Time 10:30 Visit Stop Time 11:00 Total Visit Minutes 30 Visit Number 2 Number of FARM INSTRUCTOR Visits 0 Evaluation Information Evaluation Date 11/24/18 PT-OP-B Current Condition Start: 11/24/18 09:40 Freq: Status: Active Protocol: Document 11/24/18 12:00 DCW (Rec: 11/25/18 09:45 DCW [id number]) Current Condition History of Current Condition Onset Date a few months Current Complaints Position-dependent vertigo History of Current Condition Pt is a 78 year old female complaining of a few month history of vertigo. 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 Symptoms are provoked when first laying down in bed, but also she will feel generalized imbalance when up walking around. Pt denies recent hearing changes, tinnitus, diplopia, dysarthria , discoordination, or decreased mentation/ consciousness. Admits that she has fallen recently when she was in her bathroom in the middle of the night. She was sitting on her toilet, and then fell into the tub. Pt is unable to provide any further information about the fall, and is unable to say if she was dizzy at the time or not. Prior Treatments and Tests Prior treatment of R-sided posterior canal BPPV Prior Functional Status Baseline Function- ADL's Modified Independent Baseline Function- Mobility Modified Independent PT-OP-C Subjective Start: 11/24/18 09:40 Freq: Status: Active Protocol: Document 11/25/18 10:30 DCW (Rec: 11/25/18 13:43 DCW [id number]) OP-PT Subjective Patient Comments Patient Comments I'm still very dizzy today. PT-OP-O Vestibular Start: 11/24/18 09:40 Freq: Status: Active Protocol: Document 11/25/18 10:30 DCW (Rec: 11/25/18 13:43 [facility] [id number]) Vestibular Assessment Positional Testing [place]-Hallpike Positive Right Upbeating < 60 Seconds Rolling Test Positive Left Positive Right < 60 Seconds Comments Vestibular Comments During left Kamala-Hallpike test, pt complained of vertigo and demonstrated up-beating, torsional nystagmus lasting approximately 10 seconds, consistent with diagnosis of left-sided posterior canal BPPV, canalithiasis-type. During Evaristo, pt also demonstrated geotropic nystagmus, L>R. Following the Evaristo maneuver, pt noted that she felt much better immediately upon sitting. Testing, however, did still show geotropic nystagmus L>R with roll testing. Left-sided Gufoni maneuver was performed, and pt still reported feeling much better. PT-OP-Q Treatments Start: 11/24/18 09:40 Freq: Status: Active Protocol: Document 11/25/18 10:30 DCW (Rec: 11/25/18 13:43 [facility] [id number]) Canalithic Repositioning BPPV Treatment Gufoni Affected Canal(s) Left horizontal canal Reps x1 Evaristo Affected Canal(s) Left Posterior Reps x2 PT-OP-T Assessment and Plan Start: 11/24/18 09:40 Freq: Status: Active Protocol: Document 11/25/18 10:30 DCW (Rec: 11/25/18 13:43 [facility] [id number]) Physical Therapy Assessment Impairments Impairments Balance Vestibular Goals 3 Impairment Positive Roll test Circuit Breaker Assembler Goal (LTG) Pt to display negative Roll tetst bilaterally LTG Duration 12/25/18 2 Impairment Positive bilateral Kamala- Hallpike Mcc Goal (LTG) Pt to display negative [place]- hallpike bilaterally LTG Duration 12/25/18 1 Impairment Pt experiences symptoms of vertigo when laying down in bed Mcc Goal (LTG) Pt to report no vertigo when in bed over a period of two weeks LTG Duration 12/25/18 Assessment Summary Assessment Pt responded much better today to CRM than yesterday, felt much more stable walking out of the clinic today. Pt was instructed to take it easy, and to return for a follow-up at her scheduled appointment next week. Do to pt's unusual presentation, pt was instructed to keep track of her symptoms, and with any sudden change or worsening, pt should go to the ER. Physical Therapy Plan Frequency and Duration Frequency of Treatment 2x/Week Duration of Treatment 8 weeks Plan of Care Start Date 11/24/18 Plan of Care End Date 01/19/19 Therapeutic Interventions Therapeutic Interventions Balance Training Canalithic Repositioning Manual Therapy Neuromuscular Re-education Vestibular Rehabilitation Next Visit Focus/Plan Next Note Type Treatment Note Next Visit Plan Positional testing, CRM
--- NOTE | 2018-11-29 12:34 | PT.OTN ---
Current Diagnoses Benign paroxysmal vertigo, unspecified ear (11/29/18) Physical Therapy Treatment Note PT-OP-A Visit Information Start: 11/24/18 09:40 Freq: Status: Active Protocol: Document 11/29/18 12:00 DCW (Rec: 11/29/18 12:34 DCW [id number]) Out-Patient Physical Therapy Visit Information Visit Information Visit Type Treatment Note Visit Start Time 12:00 Visit Stop Time 12:25 Total Visit Minutes 25 Visit Number 3 Number of RIDES ATTENDANT Visits 0 Evaluation Information Evaluation Date 11/24/18 PT-OP-B Current Condition Start: 11/24/18 09:40 Freq: Status: Active Protocol: Document 11/24/18 12:00 DCW (Rec: 11/25/18 09:45 DCW [id number]) Current Condition History of Current Condition Onset Date a few months Current Complaints Position-dependent vertigo History of Current Condition Pt is a 78 year old female complaining of a few month history of vertigo. 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 Symptoms are provoked when first laying down in bed, but also she will feel generalized imbalance when up walking around. Pt denies recent hearing changes, tinnitus, diplopia, dysarthria , discoordination, or decreased mentation/ consciousness. Admits that she has fallen recently when she was in her bathroom in the middle of the night. She was sitting on her toilet, and then fell into the tub. Pt is unable to provide any further information about the fall, and is unable to say if she was dizzy at the time or not. Prior Treatments and Tests Prior treatment of R-sided posterior canal BPPV Prior Functional Status Baseline Function- ADL's Modified Independent Baseline Function- Mobility Modified Independent PT-OP-C Subjective Start: 11/24/18 09:40 Freq: Status: Active Protocol: Document 11/29/18 12:00 DCW (Rec: 11/29/18 12:34 DCW [id number]) OP-PT Subjective Patient Comments Patient Comments Pt suffered a fall Wednesday trying to use her 4WW to carry in groceries when she, the walker, and the groceries all tipped backward. Pt reports soreness and bruising along her right shoulder and hip, and well as some cervical stiffness. Pt notes she is still getting dizzy when getting up or bending over, though admits it seems to be more when she is standing back up from bending over. PT-OP-O Vestibular Start: 11/24/18 09:40 Freq: Status: Active Protocol: Document 11/29/18 12:00 DCW (Rec: 11/29/18 12:34 DCW [id number]) Vestibular Assessment Positional Testing [place]-Hallpike Negative Left Negative Right Rolling Test Negative Left Negative Right Supine to Sit Negative Comments Vestibular Comments Positional testing negative PT-OP-Q Treatments Start: 11/24/18 09:40 Freq: Status: Active Protocol: Document 11/29/18 12:00 DCW (Rec: 11/29/18 12:34 DCW [id number]) Manual Therapy Treatment Other Other Manual Treatments Positional testing, orthostatic BP measurements ( 119/98 seated, 96/72 standing) PT-OP-T Assessment and Plan Start: 11/24/18 09:40 Freq: Status: Active Protocol: Document 11/29/18 12:00 DCW (Rec: 11/29/18 12:34 DCW [id number]) Physical Therapy Assessment Impairments Impairments Balance Vestibular Goals 3 Impairment Positive Roll test Prison Goal (LTG) Pt to display negative Roll tetst bilaterally LTG Duration 12/25/18 2 Impairment Positive bilateral Kamala- Hallpike Prison Goal (LTG) Pt to display negative Kam[place]- hallpike bilaterally LTG Duration 12/25/18 1 Impairment Pt experiences symptoms of vertigo when laying down in bed Coding Machine Operator Goal (LTG) Pt to report no vertigo when in bed over a period of two weeks LTG Duration 12/25/18 Assessment Summary Assessment Positional testing entirely negative today, no indication of ongoing vestibular issues. Pt's complaint of dizziness with standing was then described as more of a lightheadedness. Due to her complaints, orthostatic BP measurements were taken, and pt demonstrated a decreased in systolic BP by 23 points (119 ->96) when standing. Safety was reviewed, including standing and waiting for a moment before beginning to walk, and a recommendation to discuss this with her PCP. Pt noted she would keep an eye on it at home before going into her PCP. As pt's BPPV history is so complicated, therapist felt better with leaving her chart open for 1-1.5 months , pt will call for a follow-up appointment with any changes in symptoms occur. Physical Therapy Plan Frequency and Duration Frequency of Treatment 2x/Week Duration of Treatment 8 weeks Plan of Care Start Date 11/24/18 Plan of Care End Date 01/19/19 Therapeutic Interventions Therapeutic Interventions Balance Training Canalithic Repositioning Manual Therapy Neuromuscular Re-education Vestibular Rehabilitation Next Visit Focus/Plan Next Note Type Treatment Note Next Visit Plan Positional testing, CRM
--- NOTE | 2019-01-30 15:47 | PT.OTN ---
Current Diagnoses Benign paroxysmal vertigo, unspecified ear (11/29/18) Physical Therapy Treatment Note PT-OP-A Visit Information Start: 11/24/18 09:40 Freq: Status: Active Protocol: Document 11/29/18 12:00 DCW (Rec: 11/29/18 12:34 DCW [id number]) Out-Patient Physical Therapy Visit Information Visit Information Visit Type Treatment Note Visit Start Time 12:00 Visit Stop Time 12:25 Total Visit Minutes 25 Visit Number 3 Number of SANITATION MANAGER Visits 0 Evaluation Information Evaluation Date 11/24/18 PT-OP-B Current Condition Start: 11/24/18 09:40 Freq: Status: Active Protocol: Document 11/24/18 12:00 DCW (Rec: 11/25/18 09:45 DCW [id number]) Current Condition History of Current Condition Onset Date a few months Current Complaints Position-dependent vertigo History of Current Condition Pt is a 78 year old female complaining of a few month history of vertigo. 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 Symptoms are provoked when first laying down in bed, but also she will feel generalized imbalance when up walking around. Pt denies recent hearing changes, tinnitus, diplopia, dysarthria , discoordination, or decreased mentation/ consciousness. Admits that she has fallen recently when she was in her bathroom in the middle of the night. She was sitting on her toilet, and then fell into the tub. Pt is unable to provide any further information about the fall, and is unable to say if she was dizzy at the time or not. Prior Treatments and Tests Prior treatment of R-sided posterior canal BPPV Prior Functional Status Baseline Function- ADL's Modified Independent Baseline Function- Mobility Modified Independent PT-OP-C Subjective Start: 11/24/18 09:40 Freq: Status: Active Protocol: Document 11/29/18 12:00 DCW (Rec: 11/29/18 12:34 DCW [id number]) OP-PT Subjective Patient Comments Patient Comments Pt suffered a fall Wednesday trying to use her 4WW to carry in groceries when she, the walker, and the groceries all tipped backward. Pt reports soreness and bruising along her right shoulder and hip, and well as some cervical stiffness. Pt notes she is still getting dizzy when getting up or bending over, though admits it seems to be more when she is standing back up from bending over. PT-OP-O Vestibular Start: 11/24/18 09:40 Freq: Status: Active Protocol: Document 11/29/18 12:00 DCW (Rec: 11/29/18 12:34 DCW [id number]) Vestibular Assessment Positional Testing [place]-Hallpike Negative Left,Negative Right Rolling Test Negative Left,Negative Right Supine to Sit Negative Comments Vestibular Comments Positional testing negative PT-OP-Q Treatments Start: 11/24/18 09:40 Freq: Status: Active Protocol: Document 11/29/18 12:00 DCW (Rec: 11/29/18 12:34 DCW [id number]) Manual Therapy Treatment Other Other Manual Treatments Positional testing, orthostatic BP measurements ( 119/98 seated, 96/72 standing) PT-OP-T Assessment and Plan Start: 11/24/18 09:40 Freq: Status: Active Protocol: Document 01/30/19 15:44 DCW (Rec: 01/30/19 15:47 DCW [id number]) Physical Therapy Assessment Goals 3 Impairment Positive Roll test Laminate Floor Installer Goal (LTG) Pt to display negative Roll tetst bilaterally LTG Duration 12/25/18 2 Impairment Positive bilateral Kamala- Hallpike Laminate Floor Installer Goal (LTG) Pt to display negative [place]- hallpike bilaterally LTG Duration 12/25/18 1 Impairment Pt experiences symptoms of vertigo when laying down in bed Laminate Floor Installer Goal (LTG) Pt to report no vertigo when in bed over a period of two weeks LTG Duration 12/25/18 Assessment Summary Assessment Spoke with pt by phone today. Pt noted that she has been doing much better, no longer experiencing anything like I was when I came in to see you. Pt will be discharged at this time, will require a new referral in order to return. Physical Therapy Plan Frequency and Duration Frequency of Treatment 2x/Week Duration of Treatment 8 weeks Plan of Care Start Date 11/24/18 Plan of Care End Date 01/19/19 Therapeutic Interventions Therapeutic Interventions Balance Training,Canalithic Repositioning,Manual Therapy, Neuromuscular Re-education, Vestibular Rehabilitation Discharge Physical Therapy Discharge Reasons No Longer Attending PT Next Visit Focus/Plan Next Note Type Discharge Summary
== END 2019-01-29 13:00 ==
LOC: PHYS 12:00
PROVIDERS: PCP Physician Assistant; Visit Provider Physician Assistant
DX: H81.10 Benign paroxysmal vertigo, unspecified ear (principal)
CPT/HCPCS: 95992; 97140; 97162

== ENCOUNTER → 2019-01-17 12:56 | Outpatient (CLI) | payer MEDICARE, SELFPAY ==
[2018-01-24 18:59] VITALS: BMI 25.8
[2019-01-17 13:18] LABS: Add Manual Diff / Slide Review NO; Basophils Absolute Auto 100 /uL (0-100); Basophils Percent Auto 0.7 % (0-2); Eosinophils Absolute Auto 200 /uL (0-450); Eosinophils Percent Auto 1.8 % (2-4); Hematocrit 36.5 % (36-46); Hemoglobin 11.6 g/dL (12.0-16.0); Lymphocytes Absolute Auto 3800 /uL (1100-4500); Lymphocytes Percent Auto 31.1 % (25-40); Mean Corpuscular HGB Conc 31.7 % (30-36); Mean Corpuscular Hemoglobin 27.4 PG (26-34); Mean Corpuscular Volume 86.4 fL (80-100); Monocytes Absolute Auto 1000 /uL (0-900); Monocytes Percent Auto 8.3 % (3-14); Neutrophils Absolute Auto 7200 /uL (1500-7000); Neutrophils Percent Auto 58.1 % (50-75); Platelet Count 388 X10^3/uL (150-400); Red Blood Cell Count 4.22 X10^6/uL (4.0-5.2); White Blood Cell Count 12.4 X10^3/uL (4.5-11.0)
[2019-01-17 13:46] LABS: Alanine Aminotransferase 16 IU/L (9-52); Albumin 3.7 g/dL (3.5-5.0); Albumin Globulin Ratio 1.2 (1.0-2.8); Alkaline Phosphatase 69 U/L (38-126); Aspartate Aminotransferase 40 IU/L (14-36); BUN Creatinine Ratio 13.8 (6-22); Bilirubin Total 0.3 mg/dL (0.2-1.3); Blood Urea Nitrogen 18 mg/dL (7-17); Calcium 9.3 mg/dL (8.4-10.2); Carbon Dioxide 25 mmol/L (22-32); Chloride 105 mmol/L (98-107); Estimated Glomerular Filt Rate 39.7 mL/min (>60); Glucose 107 mg/dL (80-110); HEMOLYSIS < 15 (0-50); Potassium 4.3 mmol/L (3.4-5.1); Sodium 139 mmol/L (137-145); Total Protein 6.7 g/dL (6.3-8.2)
== END ==
PROVIDERS: PCP Physician Assistant
DX: C50.919 Malignant neoplasm of unspecified site of unspecified female breast (principal)
CPT/HCPCS: 36415; 80053; 85025

== ENCOUNTER → 2019-02-08 13:40 | Oncology outpatient (ONC) | payer MEDICARE, SELFPAY ==
[2017-09-20 13:33] VITALS: BP 103/61; PULSE 62; RESP 18; TEMP 36.8; O2SAT 96
--- NOTE | 2017-09-20 14:06 | ONC.APRN.PN ---
Assessment and Plan (1) Urothelial carcinoma Current visit: Yes Status: Acute 09/20/17 14:13 Yaneth is a very pleasant 77-year-old female who we follow for a diagnosis of invasive urethral carcinoma. She is status post radical nephro ureter ectomy 2015. She is followed by urology Dr. Lopez. She had a cystoscopy 2 weeks ago per patient report Dr. Lopez informed her everything looks good. She has an appointment to return to Dr. Lopez in 3 months for visit and cystoscopy. On exam today there are no clinical signs of disease recurrence. She did not have blood work today before exam, she does see her primary care provider regularly. I will order blood work for her next appointment. She has no new complaints on exam today. Return to clinic in 6 months time for provider visit CBC, CMP, CA 27-29. 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 December 2015 she underwent radical nephroureterectomy with open right distal ureterectomy and excision of bladder cuff. This was a T2 N0 M0 lesion. The decision was made in conjunction with Dr. Jerry and Dr Ware/John to forego adjuvant chemotherapy. She presents today for six-month clinical evaluation. She saw urology Dr. Lopez 2 weeks ago at which time she had a cystoscopy. Per patient report Dr. Lopez informed her everything looks good. Plan is for her to see Dr Lopez again in 3 months, also with cystoscopy. Patient is also followed closely by her primary care provider Maryanne Gaviria PA-C whom she saw last week and has follow up appt next week. Overall Yaneth feels she is doing well. She is struggling with depression for which she has started a new medication. This was prescribed by her primary care provider the patient is unable to recall the name presently. Otherwise no problems. No change in her bladder or bowel habits. No change with activity tolerance. Appetite is very stable, weight is stable. No new pain. No new lumps or bumps. No recent illnesses or infections. TIMELINE: She had been followed by Dr. Ware for microhematuria and the discovery of a right renal pelvis tumor based on right ureteroscopy right retrograde pyelogram right ureteral and right renal pelvis washings and biopsy of right renal pelvis mass on 09/27/2015 showing a poorly differentiated tumor consistent with urothelial origin. 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 CT abdomen and pelvis angiogram plus minus IV contrast Jan 30, 2016 showed a persistent 12 mm right renal pelvis lesion highly suspicious for TCCA, normal left kidney normal unchanged and endograft partially covering the SMA origins. 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 Recovery progressed to the point where she was able to be discharged to the SNF on 02/19/2016. She is now back home. Results - Imaging Additional studies: Procedures Colonoscopy (01/10/13) Excision of nipple (01/16/15) Injection or infusion of other therapeutic or prophylactic substance (05/29/11) Local excision of lesion of breast (01/16/15) Resection of quadrant of breast (01/16/15) Subtotal mastectomy (01/16/15) Home Medications and Allergies Home Medications Medication Instructions Recorded Confirmed Type citalopram 40 mg PO QDAY #0 10/29/09 History cholecalciferol (vitamin D3) 1 tab PO QDAY #0 05/29/11 History [Vitamin D3] melatonin 10 mg PO HSP PRN #0 05/29/11 History multivitamin [Multiple Vitamins] 1 tab PO QDAY #0 05/29/11 History omeprazole 40 mg PO QDAY #0 05/29/11 History simvastatin 20 mg PO HS #0 05/29/11 History spironolactone 12.5 mg PO QDAY #0 05/29/11 History aspirin 81 mg PO QDAY #0 11/04/16 History [HAIR,SKIN &NAILS] 1 tab PO QDAY #0 01/12/17 History kpmezdg-blzguhsqyowso-belwxvkr 2 tab PO Q6HP PRN #0 01/12/17 History [Excedrin Extra Strength] carvedilol [Coreg] 3.125 mg PO QPM #0 01/12/17 History cetirizine 10 mg PO QDAY #0 01/12/17 History meloxicam [Mobic] 15 mg PO AMCC #0 01/12/17 History omega 3-tlj-ddw-fish oil [Omera] 1,200 mg PO QDAY #0 01/12/17 History timolol maleate 1 drp OPHTH BID #0 01/12/17 History zonisamide 25 mg PO SEE INSTRUCTIONS #24 cap 07/13/17 Rx oxycodone-acetaminophen [Percocet] 1 tab PO Q8HP PRN #21 07/21/17 Rx divalproex 250 mg PO QDAY #0 07/26/17 History latanoprost [Xalatan] 1 drp OPHTH HS #0 08/10/17 History lisinopril 5 mg PO QDAY #0 08/10/17 History Exam Vital signs: Last Vital Signs Temp 98.2 F 09/20/17 13:33 Pulse 62 09/20/17 13:33 Resp 18 09/20/17 13:33 BP 103/61 09/20/17 13:33 Pulse Ox 96 09/20/17 13:33 Narrative: well appearing - Constitutional positive no acute distress, positive average body habitus - Routine HEENT Exam Head: Present: normocephalic, atraumatic Eye: Present: conjunctivae pink. Absent: conjunctival icterus, scleral injection ENT: Present: mucous membranes moist - Routine Neck Exam Present: supple. Absent: lymphadenopathy - Routine Chest/Breast/Axilla Exam Axillae: Absent: lymphadenopathy, mass - Routine Respiratory Exam Present: Clear to auscultation bilaterally, decreased breath sounds - Routine Cardiovascular Exam Present: RRR, S1, S2 - Routine Abdominal Exam Present: soft, normoactive bowel sounds. Absent: tenderness, distended, organomegaly - Routine Extremities Exam Absent: edema, calf tenderness - Routine Skin Exam Present: intact, normal turgor. Absent: petechiae, rash - Routine Neurological Exam Present: alert, oriented X3 - Routine Psychiatric Exam Present: normal affect
--- NOTE | 2018-05-05 16:19 | ONC.SCHED ---
called pt on 03/18/18 to schedule 6 month follow up pt declined and wanted me to wait until after the first of the year. Called patient today she now wants to wait until after she comes back from her vacation in [place] she states she will either stop by after PT to schedule or call.
[2018-07-12 13:24] VITALS: BP 115/78; PULSE 76; RESP 16; TEMP 36.6; O2SAT 97
--- NOTE | 2018-07-12 13:40 | ONC.PN ---
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 Nephrectomy and ureterectomy in December 2015. 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 December 2015 she underwent radical nephroureterectomy with open right distal ureterectomy and excision of bladder cuff. This was a T2 N0 M0 lesion. The decision was made in conjunction with Dr. Jerry and Dr Ware/John to forego adjuvant chemotherapy. Since her last visit here, she has been hospitalized after a fall that she had a hip fracture. Shortly thereafter, she developed an bowel obstruction requiring surgical intervention. She has since recovered from that surgery and is feeling well today. She denies any new aches or pains. Strength and energy level have been low but stable. She has not noticed any adenopathy. No fevers chills or sweats. No shortness of breath or cough. She denies any urinary complaints and has not noticed any hematuria. She denies any other changes in her health. Her past medical history is notable for previous hysterectomy. She has had a AAA. She has had a prior cholecystectomy. She has had falls with multiple fractures. 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 Her current medications include aspirin carvedilol citalopram divalproex lisinopril omeprazole simvastatin spironolactone and vitamins. - Patient Self-Reported Symptoms SR ears, nose, mouth, throat issues: Ears ringing SR Skin issues: Skin rash or itching, Hair loss or scalp prob SR Gastrointestinal issues: Diarrhea SR Musculoskeletal issues: Joint pain or swelling, Muscle weakness, Muscle pain or cramps, Back or neck pain SR Neuro issues: Headache, Lightheaded/dizzy, Difficulty balancing Home Medications and Allergies Home Medications Medication Instructions Recorded Confirmed Type cholecalciferol (vitamin D3) 1 tab PO QDAY #0 05/29/11 02/17/18 History [Vitamin D3] simvastatin 20 mg PO HS #0 05/29/11 02/17/18 History spironolactone 12.5 mg PO QDAY #0 05/29/11 02/17/18 History almprys-mzsbalndddhzl-crinkkts 2 tab PO Q6HP PRN #0 01/12/17 02/17/18 History [Excedrin Extra Strength] carvedilol [Coreg] 3.125 mg PO BID #0 01/12/17 02/17/18 History omega 2-etf-xgy-fish oil [Omera] 1,200 mg PO QDAY #0 01/12/17 02/17/18 History timolol maleate 1 drp OPHTH BID #0 01/12/17 02/17/18 History latanoprost [Xalatan] 1 drp OPHTH HS #0 08/10/17 02/17/18 History erenumab-aooe 70 mg/mL 70 mg SUBCUT QMONTH #1 ml 10/28/17 01/24/18 Rx subcutaneous auto-injector aspirin 81 mg PO DAILY 11/02/17 02/17/18 History bupropion HCl 150 mg PO BID 11/02/17 02/17/18 History cetirizine 10 mg PO DAILY 11/02/17 02/17/18 History duloxetine 30 mg PO QPM 11/02/17 01/24/18 History zonisamide 100 mg PO QPM 11/02/17 02/17/18 History bisacodyl 1 - 2 tab PO PRN PRN 01/24/18 02/17/18 History bisacodyl 1 supp ID PRN PRN 01/24/18 02/17/18 History duloxetine 60 mg PO QAM 01/24/18 02/17/18 History magnesium hydroxide [Milk of 30 ml PO PRN PRN 01/24/18 02/17/18 History Magnesia] melatonin 10 mg PO BEDTIME PRN 01/24/18 02/17/18 History sodium phosphates [Fleet Enema] 1 supp ID PRN PRN 01/24/18 02/17/18 History oxycodone 10 mg PO Q4-6H PRN #20 tab 02/04/18 02/17/18 Rx pantoprazole 40 mg PO BID #60 tab 02/04/18 02/17/18 Rx gabapentin 300 mg capsule 300 mg PO BID 02/17/18 02/17/18 History Allergies Allergy/AdvReac Type Severity Reaction Status Date / Time No Known Drug Allergies Allergy Verified 02/17/18 10:51 Exam Vital signs: Vital Signs Temp Pulse Resp BP Pulse Ox 07/12/18 13:24 97.9 F 76 16 115/78 97 Intake and Output 07/11/18 07/12/18 07/12/18 23:59 07:59 15:59 Other: Weight 72.4 kg Patient Weight 07/12/18 23:59 Weight 72.4 kg - Constitutional positive no acute distress, positive obese - Routine HEENT Exam Head: Present: normocephalic, atraumatic Eye: Present: EOMI, PERRL. Absent: conjunctival icterus, scleral injection ENT: Present: mucous membranes moist, oropharynx clear - Routine Neck Exam Present: supple. Absent: lymphadenopathy, thyromegaly - Routine Respiratory Exam Present: Clear to auscultation bilaterally. Absent: rales, wheezes - Routine Cardiovascular Exam Present: RRR, S1, S2. Absent: murmur - Routine Abdominal Exam Present: soft, normoactive bowel sounds. Absent: tenderness, organomegaly, mass - Routine Extremities Exam Absent: cyanosis, clubbing, edema - Routine Skin Exam Present: intact. Absent: petechiae, rash - Routine Neurological Exam Present: alert, oriented X3 - Routine Psychiatric Exam Present: normal affect, normal thought process Results - Imaging Additional studies: Procedures Colonoscopy (01/10/13) Injection or infusion of other therapeutic or prophylactic substance (05/29/11) Insertion of Infusion Device into Superior Vena Cava, Percutaneous Approach (01/24/18) Introduction of Nutritional Substance into Central Vein, Percutaneous Approach (01/24/18) Release Ileum, Open Approach (01/24/18) Transfusion of Nonautologous Red Blood Cells into Peripheral Vein, Percutaneous Approach (01/24/18) Assessment and Plan (1) Urothelial carcinoma Current visit: Yes Status: Chronic 78-year-old woman with a history of a T2 N0 transitional cell carcinoma involving the right renal pelvis. She is about 2 and half years out from her surgery. She has no evidence of recurrence. She will return to clinic in about 6 months for follow-up.
[2019-02-08 13:40] VITALS: BP 139/88; PULSE 69; RESP 18; TEMP 36.8; O2SAT 98
--- NOTE | 2019-02-08 13:58 | P.PNONC_ITS ---
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 Nephrectomy and ureterectomy in December 2015. 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 December 2015 she underwent radical nephroureterectomy with open right distal ureterectomy and excision of bladder cuff. This was a T2 N0 M0 lesion. The decision was made in conjunction with Dr. Jerry and Dr Ware/John to forego adjuvant chemotherapy. Since her last visit here, she has been feeling reasonably well. She did have another fall with some bruising on her shoulder and hip but did not injure herself more severely. She denies any other new aches or pains. Her appetite and energy level have been stable. She has not noticed any adenopathy. No shortness of breath or cough. No GI complaints. She has not noted any christine turia or dysuria. She has not seen a urologist in some time. She has had some trouble with depression over the last year. She has been working with her primary care provider and has been changing some medications. She denies any other changes in her health. Her past medical history is notable for previous hysterectomy. She has had a AAA. She has had a prior cholecystectomy. She has had falls with multiple fractures. 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 - Patient Self-Reported Symptoms SR Constitution: Weight loss/gain, Fatigue/Malaise SR ears, nose, mouth, throat issues: Ears ringing, Mouth sores SR Skin issues: Nail changes SR Gastrointestinal issues: Diarrhea SR Genitourinary issues: Incontinence SR Musculoskeletal issues: Joint pain or swelling, Muscle weakness, Difficulty walking SR Neuro issues: Headache, Lightheaded/dizzy, Difficulty balancing Home Medications and Allergies Home Medications Medication Instructions Recorded Confirmed Type simvastatin 20 mg PO HS #0 05/29/11 02/08/19 History spironolactone 12.5 mg PO QDAY #0 05/29/11 02/08/19 History carvedilol [Coreg] 3.125 mg PO BID #0 01/12/17 02/08/19 History erenumab-aooe 70 mg/mL 70 mg SUBCUT QMONTH #1 ml 10/28/17 02/08/19 Rx subcutaneous auto-injector aspirin 81 mg PO DAILY 11/02/17 02/08/19 History bupropion HCl 150 mg PO BID 11/02/17 02/08/19 History cetirizine 10 mg PO DAILY 11/02/17 02/08/19 History duloxetine 30 mg PO QPM 11/02/17 02/08/19 History duloxetine 60 mg PO QAM 01/24/18 02/08/19 History melatonin 10 mg PO BEDTIME PRN 01/24/18 02/08/19 History cholecalciferol (vitamin D3) 5,000 5,000 unit PO DAILY 11/08/18 02/08/19 History unit capsule omeprazole 20 mg capsule,delayed 20 mg PO BID cap 11/08/18 02/08/19 History release oxycodone-acetaminophen 5 mg-325 1 tab PO Q12H PRN tab 11/08/18 02/08/19 History mg tablet Allergies Allergy/AdvReac Type Severity Reaction Status Date / Time No Known Drug Allergies Allergy Verified 11/08/18 11:14 Exam Vital signs: Vital Signs Temp Pulse Resp BP Pulse Ox 02/08/19 13:40 98.3 F 69 18 139/88 98 Intake and Output 02/07/19 02/08/19 02/08/19 23:59 07:59 15:59 Other: Weight 75 kg Patient Weight 02/08/19 23:59 Weight 75 kg - Constitutional positive no acute distress, positive average body habitus - Routine HEENT Exam Head: Present: normocephalic, atraumatic Eye: Present: EOMI, PERRL. Absent: conjunctival icterus, scleral injection ENT: Present: mucous membranes moist, oropharynx clear - Routine Neck Exam Present: supple. Absent: lymphadenopathy, thyromegaly - Routine Respiratory Exam Present: Clear to auscultation bilaterally. Absent: rales, wheezes - Routine Cardiovascular Exam Present: RRR, S1, S2. Absent: murmur - Routine Abdominal Exam Present: soft, normoactive bowel sounds. Absent: tenderness, organomegaly - Routine Extremities Exam Absent: cyanosis, clubbing, edema - Routine Back/Spine Exam Back/Spine: Absent: vertebral tenderness - Routine Skin Exam Present: intact. Absent: petechiae, rash - Routine Neurological Exam Present: alert, oriented X3 - Routine Psychiatric Exam Present: normal affect, normal thought process Results - Imaging Additional studies: Procedures Colonoscopy (01/10/13) Injection or infusion of other therapeutic or prophylactic substance (05/29/11) Assessment and Plan (1) Urothelial carcinoma Current visit: Yes Status: Chronic 78-year-old woman with a history of a T2 N0 transitional cell carcinoma involving the right renal pelvis. She is about 3 years out from her surgery. She has no evidence of recurrence. She will return to clinic in about 6 months for follow-up. I think she is probably due for cystoscopy. Will make referral back to urology for that.
== END ==
PROVIDERS: PCP Physician Assistant
DX: Z08 Encounter for follow-up examination after completed treatment for malignant neoplasm (principal); Z85.53 Personal history of malignant neoplasm of renal pelvis; Z86.000 Personal history of in-situ neoplasm of breast
CPT/HCPCS: 99214

== ENCOUNTER → 2019-02-17 11:02 | Outpatient (CLI) | payer MEDICARE, SELFPAY ==
[2018-01-24 18:59] VITALS: BMI 25.8
--- NOTE | 2019-02-17 | DI.MG.S_ITS ---
BILATERAL DIGITAL SCREENING MAMMOGRAM 3D/2D WITH CAD: 02/17/2019 CLINICAL: Routine screening. Personal history of breast cancer. Comparison is made to exams dated: 09/17/2017 mammogram, 05/13/2016 mammogram, 09/14/2014 mammogram, 05/22/2011 mammogram, 03/06/2010 mammogram, and 11/30/2008 mammogram - [facility]. There are scattered fibroglandular elements in both breasts. Current study was also evaluated with a Computer Aided Detection (CAD) system. There are benign post operative findings in the left breast. There is a mole marker on the right breast. No significant masses, calcifications, or other findings are seen in either breast. There has been no significant interval change. IMPRESSION: There is no mammographic evidence of malignancy. A 1 year screening mammogram is recommended. This exam was interpreted at Station ID: [id number]. NOTE: For mammograms, a report in lay terms will be sent to the patient. Approximately 15% of breast malignancies will not be visualized mammographically. In the management of a palpable breast mass, a negative mammogram must not discourage biopsy of a clinically suspicious lesion. Electronically Signed By: Jeet oneill/nishant:02/19/2019 19:35:01 copy to: ERNA JORGE letter sent: Normal Exam ACR BI-RADS Category 2: Benign Finding(s) 3342F
== END ==
PROVIDERS: PCP Physician Assistant; Visit Provider Physician Assistant
DX: Z12.31 Encounter for screening mammogram for malignant neoplasm of breast (principal); Z85.3 Personal history of malignant neoplasm of breast
CPT/HCPCS: 77063; 77067

== ENCOUNTER → 2019-02-20 14:49 | Outpatient (CLI) | payer MEDICARE, SELFPAY ==
[2018-01-24 18:59] VITALS: BMI 25.8
--- NOTE | 2019-02-20 | DI.RAD.S_ITS ---
PROCEDURE: XR SHOULDER RT MIN 2V INDICATIONS: PAIN IN RIGHT SHOULDER TECHNIQUE: 3 views of the shoulder were acquired. COMPARISON: None. FINDINGS: Bones: No fractures or dislocations. No suspicious bony lesions. Visualized ribs appear intact. Mild glenohumeral joint and a.c. joint degenerative change. Soft tissues: No suspicious soft tissue calcifications. IMPRESSION: Degenerative change. No acute fracture dislocation or suspicious bony lesion. If clinical suspicion and/or symptoms persist, further assessment with repeat plain films, or advanced imaging (e.g., CT, MRI, or bone scan) may be helpful for further assessment. Dictated by: Dequan Hickey M.D. on 02/20/2019 at 16:21 Approved by: Dequan Hickey M.D. on 02/20/2019 at 16:23
== END ==
PROVIDERS: PCP Physician Assistant; Visit Provider Physician Assistant
DX: M25.511 Pain in right shoulder (principal)
CPT/HCPCS: 73030

== ENCOUNTER 2019-03-01 09:09 | Day surgery (SDC) | payer MEDICARE, SELFPAY ==
[2018-01-24 18:59] VITALS: BMI 25.8
[2019-03-01] VITALS (8 sets, daily range): BP systolic 85–140; BP diastolic 63–92; PULSE 83–101; RESP 12–20; TEMP 36–36.3; O2SAT 92–97; BMI 34.4
--- NOTE | 2019-03-01 | PATH_ITS ---
[facility] Accession Number: [id number] . 01 Material submitted: . PART A: gastrointestinal site - BODY AND ANTRUM BIOPSY PART B: colon - RANDOM COLON BIOPSY . 01 Clinical history: . A. FOR H. PYLORI B. R/O MICROSCOPIC COLITIS COLONOSCOPY/EGD . 02 Diagnosis: A. Stomach, Body and Antrum, Biopsies: Antral and body-type mucosa with no diagnostic abnormality. Negative for Helicobacter organisms by immunohistochemistry. Negative for intestinal metaplasia. Negative for dysplasia and malignancy. . B. Random Colon Biopsy: Collagenous colitis. Negative for granulomas, dysplasia and malignancy. MRV 03/03/2019 1428 Local . 02 Electronically signed: . Lien Sarah MD, Pathologist NPI- [id number] . 01 Gross description: . Part A: BODY AND ANTRUM BIOPSY: Received in formalin are 3 fragment(s) of charles, soft tissue measuring 0.1 x 0.1 x 0.1 cm to 0.3 x 0.2 x 0.2 cm submitted entirely in 1 cassette(s) Part B: RANDOM COLON BIOPSY: Received in formalin are multiple fragment(s) of charles, soft tissue measuring 0.1 x 0.1 x 0.1 cm to 0.3 x 0.2 x 0.2 cm submitted entirely in 1 cassette(s) /[facility] 03/01/2019 1922 Local . 02 Microscopic: . A. An immunohistochemical stain was performed to evaluate for Helicobacter organisms and is negative. The control stain showed appropriate reactivity. . * This test was developed and its performance characteristics determined by [employer]. It has not been cleared or approved by the U.S. Food and Drug Administration. The FDA has determined that such clearance or approval is not necessary. This test is used for clinical purposes. It should not be regarded as investigational or for research. . 02 Pathologist provided ICD-10: K52.89, R19.7, R10.13 . 02 CPT . 073511, 875717, [id number] Performed at: 01 [facility] [address] [id number] MD Ryan Saldivar MD Phone: [phone] Performed at: 02 [facility] [address] [place] [id number] MD Lien Sarah MD Phone: [phone]
--- NOTE | 2019-03-01 07:55 | PM.HP.1 ---
History of Present Illness History of Present Illness Date Patient Seen: 03/01/19 Chief complaint: [id number] COLONOSCOPY/EGD Narrative: 78-year-old female who was seen in our office 12/27/[address] Pina for complaints of epigastric pain and chronic diarrhea. She is here for further evaluation by means of upper endoscopy and colonoscopy. Please refer to that office note for further details. 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) Essential (primary) hypertension (Chronic) GERD (gastroesophageal reflux disease) (Chronic) Headache (Chronic) Heart failure (Chronic) History of fracture of right hip (Resolved) History of nephrectomy, unilateral (Acute) Hyperglycemia (Chronic) Hyperlipidemia (Chronic) Insomnia (Chronic) Major depressive disorder, recurrent, moderate (Chronic) Mixed hyperlipidemia (Chronic) 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) Sleep apnea (Chronic) Small bowel obstruction, partial (Acute) Spinal stenosis of lumbar region (Chronic) Vitamin D deficiency (Chronic) Family & Social History Social History: household members none Tobacco & Substance use: Smoking Status Former smoker alcohol intake current alcohol intake frequency holiday/special occasion Substance Use Type does not use Meds Home Medications and Allergies Home Medications Medication Instructions Recorded Confirmed Type simvastatin 20 mg PO HS #0 05/29/11 03/01/19 History spironolactone 12.5 mg PO QDAY #0 05/29/11 03/01/19 History carvedilol [Coreg] 3.125 mg PO BID #0 01/12/17 03/01/19 History erenumab-aooe 70 mg/mL 70 mg SUBCUT QMONTH #1 ml 10/28/17 03/01/19 Rx subcutaneous auto-injector aspirin 81 mg PO DAILY 11/02/17 03/01/19 History bupropion HCl 150 mg PO BID 11/02/17 03/01/19 History cetirizine 10 mg PO DAILY 11/02/17 03/01/19 History duloxetine 30 mg PO QPM 11/02/17 03/01/19 History duloxetine 60 mg PO QAM 01/24/18 03/01/19 History melatonin 10 mg PO BEDTIME PRN 01/24/18 03/01/19 History cholecalciferol (vitamin D3) 5,000 5,000 unit PO DAILY 11/08/18 03/01/19 History unit capsule omeprazole 20 mg capsule,delayed 20 mg PO BID cap 11/08/18 03/01/19 History release oxycodone-acetaminophen 5 mg-325 1 tab PO Q12H PRN tab 11/08/18 03/01/19 History mg tablet Allergies Allergy/AdvReac Type Severity Reaction Status Date / Time No Known Drug Allergies Allergy Verified 03/01/19 09:27 Exam Narrative Exam Narrative: General: Patient is obese, not in apparent distress Cardiovascular: Regular rate and rhythm, no murmurs, rubs, or gallops; no evidence of edema; no palpable abdominal aortic aneurysm Gastrointestinal: Normoactive bowel sounds, soft, nontender, nondistended, no rebound tenderness, no hepatosplenomegaly, no evidence of hernia Assessment & Plan Assessment & Plan narrative: 78-year-old female here for further evaluation of epigastric pain and chronic diarrhea by means of upper endoscopy and colonoscopy with biopsies Regarding the procedure(s), the risks and potential complications, benefits, and alternatives (including not doing the procedure) were discussed with the patient. The risks include but are not limited to bleeding, splenic injury, infection, perforation which may require surgical intervention, missed lesions, and adverse reactions to sedative medicines. After a question and answer period, the patient agreed to proceed with the procedure(s) and gives informed consent.
[2019-03-01] MEDS: SODIUM CHLORIDE 0.9% 1,000 ML 70 ML IV (09:28)
--- NOTE | 2019-03-01 10:03 | PM.OP.ENDO ---
Operative Date/Time/Diagnoses Date of procedure: 03/01/19 Procedure Notes Procedure in detail: Surgeon: Eldon Turner MD Procedure: Esophagogastroduodenoscopy with gastric biopsy Preoperative diagnosis: Epigastric pain Postoperative diagnosis: Small hiatal hernia; J-shaped stomach; otherwise unremarkable EGD Medications: Conscious sedation using 4 mg IV of Midazolam and 100 mcg IV of Fentanyl Preanesthesia Assessment An H and P was performed and the Px?s ASA class is 2. The procedure was discussed in detail with the patient. The potential risks and complications including infection, bleeding, missed lesions, perforation, need for surgery in case of perforation, prolonged hospital stay, and were explained. A brief question and answer period was allotted and once all questions were answered, informed consent was obtained. The patient was brought back to the procedure room and placed on standard monitoring. The patient?s vital signs were monitored continuously throughout the entire procedure. Prior to starting, a timeout was performed to confirm the patient?s identity, allergies, medications, and procedure. Procedure in detail The patient was placed in left lateral decubitus position and a bite block was inserted. The tip of the upper endoscope was placed into the mouth and advanced without difficulty under direct visualization into the esophagus. Esophagus: The distal esophagus was moderately tortuous. Otherwise there was no evidence of mucosal abnormality. The Z-line was regular Stomach: There was note of a J-shaped stomach and a small hiatal hernia. The gastric mucosa appeared unremarkable. Biopsies were taken from the body and antrum to rule out H pylori Duodenum: The visualized duodenal mucosa to the 2nd portion of the duodenum appeared normal. Complications There were no complications and estimated blood loss was minimal. Recommendations: Proceed with colonoscopy Continue outPx medications Follow up pathology results Office follow up with Dr. Pina at next available appointment
--- NOTE | 2019-03-01 10:05 | PM.OP.ENDO ---
Operative Date/Time/Diagnoses Date of procedure: 03/01/19 Procedure Notes Procedure in detail: Surgeon: Eldon Turner MD Procedure: Colonoscopy with biopsies Preoperative diagnosis: Chronic diarrhea Postoperative diagnosis: Sigmoid diverticulosis, grade 1 internal hemorrhoids Medications: Conscious sedation using 4 mg IV of Midazolam and 100 mcg IV of Fentanyl; total for EGD and colonoscopy Preanesthesia Assessment An H and P was performed and the Px?s ASA class is 2. The procedure was discussed in detail with the patient. The potential risks and complications including infection, bleeding, missed lesions, perforation, need for surgery in case of perforation, prolonged hospital stay, and were explained. A brief question and answer period was allotted and once all questions were answered, informed consent was obtained. The patient was brought back to the procedure room and placed on standard monitoring. The patient?s vital signs were monitored continuously throughout the entire procedure. Prior to starting, a timeout was performed to confirm the patient?s identity, allergies, medications, and procedure. Procedure in detail After the EGD, The patient was kept in left lateral decubitus position and once adequate sedation was obtained a JOSE LUIS was performed. The digital rectal examination did not reveal any palpable lesions. The tip of the colonoscope was placed in the anal canal and advanced without difficulty all the way to the cecum which was identified by the appendiceal orifice and the ileocecal valve. The terminal ileum was intubated to a distance of 5 cm from the ileocecal valve and the mucosa appeared normal. The colonoscope was then withdrawn back into the cecum. Careful examination of all sweeney of the colon was performed with irrigation of any residual stool. The colon mucosa appeared normal throughout the entire colon. Random colon biopsies were taken from the left and right colon to check for microscopic colitis. There was minimal bleeding associated with biopsies In the sigmoid colon there was note of multiple medium-size diverticula Retroflexion in the rectum revealed grade 2 internal hemorrhoids The patient tolerated the procedure well and will be brought back to the recovery area to be discharged once criteria are met. The prep was judged to be good and adequate to identify polyps less than 5 mm. The withdrawal time was 9 minutes. The total physician intraservice time was 31 minutes. Complications There were no complications and estimated blood loss was minimal. Recommendations: Resume previous diet Continue outPx medications Follow up pathology results No repeat screening colonoscopy recommended given patient's age and findings on present exam Office follow up with Dr. Pina at next available appointment An emergency contact number was given to the patient for any complications related to the procedure
[2019-03-01] MEDS: fentaNYL 250 MCG/5 ML INJ IV (10:38)
[2019-03-01] MEDS: MIDAZOLAM 5 MG/5 ML VIAL IV (10:39)
--- NOTE | 2019-03-01 11:21 | SUR.PHASEII ---
pt arrived to phase II via stretcher. pt sitting up, alert and talking to RN. pt denies any pain/discomfort or nausea at this time. bed in lowest position and call light given to pt.
== END 2019-03-01 12:02 | disposition home or self-care (01) ==
PROVIDERS: Family Provider Physician Assistant; PCP Physician Assistant; Visit Provider Internal Medicine Gastroenterology
PROC: 0DJ08ZZ Inspection of Upper Intestinal Tract, Via Natural or Artificial Opening Endoscopic (ICD-10-PCS; CPT 43235; principal; 2019-03-01 10:00)
PROC: 0DJD8ZZ Inspection of Lower Intestinal Tract, Via Natural or Artificial Opening Endoscopic (ICD-10-PCS; CPT 45378; 2019-03-01 10:00)
DX: R19.7 Diarrhea, unspecified (principal); K44.9 Diaphragmatic hernia without obstruction or gangrene; K64.0 First degree hemorrhoids; K52.89 Other specified noninfective gastroenteritis and colitis
CPT/HCPCS: 45380; 43239; J2250; J3010

== ENCOUNTER 2019-06-19 11:15 | Outpatient (RCR) | payer MEDICARE, SELFPAY ==
[2018-01-24 18:59] VITALS: BMI 25.8
--- NOTE | 2019-04-25 15:15 | PT.OPPOC ---
Physical, Occupational & Speech Therapy At [facility] Current Diagnoses Stiffness of right shoulder, not elsewhere classified (04/25/19) Other injury of muscle(s) and tendon(s) of the rotator cuff of right shoulder, subsequent encounter (04/25/19) History of falling (04/25/19) Visit Care Team Role Provider Type Maryanne Gaviria PA-C Attending Provider Advanced Delivery Stock Clerk Family Provider Primary Care Provider Specialty: Internal Medicine Address: [address] [place] [address], [facility] Email: [email or web address] Plan Of Care PT-OP-T Assessment and Plan Start: 04/25/19 17:48 Freq: Status: Active Protocol: Document 04/25/19 14:30 DCW (Rec: 04/26/19 12:26 DCW [id number]) Physical Therapy Assessment Rehab Potential Rehabilitation Potential Good Evaluation Complexity Number of Personal Factors/Comorbidities 1-2 Number of Body Systems Impaired 1-2 Clinical Presentation at Evaluation Stable Impairments Impairments Functional Mobility,Pain,ROM, Soft Tissue Mobility Other Concerns Fall Risk History of multiple falls Goals 3 Impairment Pt shoulder pain limits sleep Supervisor Reactor Fueling Goal (LTG) Pt to sleep on right side uninturrupted for 6 hours. LTG Duration 07/19/19 2 Impairment Pt has limited ROM which creates functional mobility limitations Short Term Goal (STG) Pt to don jacket with no increased shoulder pain STG Duration 06/07/19 Supervisor Reactor Fueling Goal (LTG) Pt to reach overhead and turn off her closet light without increased shoulder pain. LTG Duration 07/19/19 1 Impairment Pt does not have an appropriate home exercise program Short Term Goal (STG) Pt to be independent and compliant with an appropriate HEP STG Duration 05/27/19 Assessment Summary Assessment Pt presents with signs and symptoms of a soft tissue strain in her right shoulder. Pt exhibits limited ROM and tenderness in her infraspinatus and supraspinatus, as well as along her subacromial space, likely indicating impingement. Overhead and internal rotation motions tend to cause the most pain. Overall, pt feels like her shoulder has improved over the last few months, and should benefit from skilled therapy focusing on shoulder strengthening, ROM /flexibility, STM, joint mobilizations, and pain- control modalities. Physical Therapy Plan Frequency and Duration Frequency of Treatment 2x/Week Duration of Treatment 12 weeks Plan of Care Start Date 04/25/19 Plan of Care End Date 07/19/19 Therapeutic Interventions Therapeutic Interventions Home Exercise Program,Joint Mobilizations,Manual Therapy, Patient/Caregiver Education, Self-Care/Home Management,Soft Tissue Mobilization, Therapeutic Exercises Modalities Cold Pack/Ice Massage,Electric Stimulation,Hot Packs, Ultrasound Next Visit Focus/Plan Next Note Type Treatment Note Next Visit Plan STM, Shoulder ROM, Strengthening Plan of Care Dates Plan of Care Start Date 04/25/19 Plan of Care End Date 07/19/19 Electronically Signed by: Graeme Tilley, PT 04/26/19 [id number] Please Sign and Return: I have reviewed this Plan of Care and certify that the skilled therapy services above are required to meet the patient?s needs. Physician Signature Date Printed Name and Credentials Clinical Instructor Signature Printed Name and Credentials
--- NOTE | 2019-04-25 15:15 | PT.OIE ---
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) Essential (primary) hypertension (Chronic) GERD (gastroesophageal reflux disease) (Chronic) Headache (Chronic) Heart failure (Chronic) History of fracture of right hip (Resolved) History of nephrectomy, unilateral (Acute) Hyperglycemia (Chronic) Hyperlipidemia (Chronic) Insomnia (Chronic) Major depressive disorder, recurrent, moderate (Chronic) Mixed hyperlipidemia (Chronic) 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) Sleep apnea (Chronic) Small bowel obstruction, partial (Acute) Spinal stenosis of lumbar region (Chronic) Vitamin D deficiency (Chronic) Past Surgical History (Last Reviewed 01/25/18 @ 19:07 by Joel Castaneda MD) History of lumpectomy (Acute) History of nephrectomy (Acute) History of repair of aneurysm of abdominal aorta using endovascular stent graft (Acute) Visit Care Team Role Provider Type Maryanne Gaviria PA-C Attending Provider Advanced Correctional Medicine Physician Family Provider Primary Care Provider Specialty: Internal Medicine Address: [address] [place] [address] Email: [email or web address] Physical Therapy Initial Evaluation PT-OP-A Visit Information Start: 04/25/19 17:48 Freq: Status: Active Protocol: Document 04/25/19 14:30 DCW (Rec: 04/25/19 17:55 DCW [id number]) Out-Patient Physical Therapy Visit Information Visit Information Visit Type Initial Evaluation Visit Start Time 14:30 Visit Stop Time 15:15 Total Visit Minutes 45 Visit Number 1 Number of COPY PREPARER Visits 0 Evaluation Information Evaluation Date 04/25/19 PT-OP-B Current Condition Start: 04/25/19 17:48 Freq: Status: Active Protocol: Document 04/25/19 14:30 DCW (Rec: 04/26/19 12:26 DCW [id number]) Current Condition History of Current Condition Onset Date 2-3 months Current Complaints R shoulder pain History of Current Condition Pt is a 78 year old female presenting with a 2-3 month history of right shoulder pain . Pt notes it comes and goes, and most of the time really isn't all that bad, but has occasional very very bad pain with certain movements. Pt has difficulty with reaching overhead to turn off a light, or reaching back to don her jacket. Pt admits to some recent falls, the most recent one on , which was me making a bad decision to walk on very clean, shiny floors while wearing socks. Pt thinks one of her falls may have been the cause of her shoulder pain, but she isn't really sure. Prior Treatments and Tests Shoulder x-ray: IMPRESSION: Degenerative change. No acute fracture dislocation or suspicious bony lesion. Per: Dequan Hickey M.D. on 02/20/2019 PT-OP-C Subjective Start: 04/25/19 17:48 Freq: Status: Active Protocol: Document 04/25/19 14:30 DCW (Rec: 04/26/19 09:39 [facility] [id number]) OP-PT Subjective Patient Comments Patient Comments It really isn't all that bad, but she (Maryanne Gaviria PA-C) said I should go to PT. Patient Reported Progress Improving Patient Questionnaires Quick Dash- Upper Extremity Quick Dash UE Score 38.64% Quick Dash UE Impairment 20 to 39% Impaired (Score 20- 39) OP-PT Pain Assessment Location Right Shoulder Intensity 4 Scale Used Numeric (1 - 10) PT-OP-E Functional Tests Start: 04/25/19 17:48 Freq: Status: Active Protocol: Document 04/25/19 14:30 DCW (Rec: 04/26/19 09:34 DCW [id number]) Functional Tests Apley's Scratch Test Action 1- Left Lateral opposite shoulder Action 1- Right Lateral opposite shoulder Action 2- Left T2 Action 2- Right C6 Action 3- Left T7 Action 3- Right T12 PT-OP-F Manual Assessment Start: 04/25/19 17:48 Freq: Status: Active Protocol: Document 04/25/19 14:30 DCW (Rec: 04/26/19 09:29 DCW [id number]) Manual Assessments Soft Tissue Assessment Soft Tissue Mobility Assessment Tenderness to palpation: 3/4 - Wincing and withdraw along right supraspinatus and infraspinatus Joint Mobility Assessment Joint Mobility Assessment Tenderness to palpation: 2/4 - Pain with wincing along subacromial space PT-OP-K Range of Motion Start: 04/25/19 17:48 Freq: Status: Active Protocol: Document 04/25/19 14:30 DCW (Rec: 04/25/19 18:00 SCW [id number]) Shoulder Goniometric Range of Motion Shoulder Right Active Testing Position Sitting Flexion 140 Extension 108 External Rotation at 0 degrees Abduction 55 Left Active Shoulder ROM WFL Yes Testing Position Sitting Flexion 180 Abduction 180 External Rotation at 0 degrees Abduction 53 PT-OP-L Special Tests Start: 04/25/19 17:48 Freq: Status: Active Protocol: Document 04/25/19 14:30 DCW (Rec: 04/26/19 09:29 [facility] [id number]) Special Tests Shoulder Special Tests Passive ER Rotator Cuff Test Results Mild R pain Drop Arm Rotator Cuff Test Results Negative Carvalho Bharath Impingement Test Results Positive Right Painful Arc Test Results Positive Right Lift-Off Rotator Cuff Test Results Negative Belly Press Test Results Negative PT-OP-M Strength Start: 04/25/19 17:48 Freq: Status: Active Protocol: Document 04/25/19 14:30 DCW (Rec: 04/25/19 17:59 [id number] Shoulder Strength Shoulder Manual Muscle Testing Right Flexion 4 Good Abduction (C5) 4 Good External Rotation 4+ Good+ Internal Rotation 4+ Good+ Left Flexion 4+ Good+ Abduction (C5) 4+ Good+ External Rotation 4+ Good+ Internal Rotation 4+ Good+ PT-OP-Q Treatments Start: 04/25/19 17:48 Freq: Status: Active Protocol: Document 04/25/19 14:30 DCW (Rec: 04/25/19 17:58 SCW [id number]) Therapeutic Exercises Sitting Exercises Table stretch Sitting Exercise Name Flexion table stretch Side right Standing Exercises ER/IR Standing Exercise Name Shoulder ER/IR Side right Resistance Lv 2 Equipment Used T-band Pendulums Standing Exercise Name Pendulums Side right PT-OP-T Assessment and Plan Start: 04/25/19 17:48 Freq: Status: Active Protocol: Document 04/25/19 14:30 DCW (Rec: 04/26/19 12:26 DCW [id number]) Physical Therapy Assessment Rehab Potential Rehabilitation Potential Good Evaluation Complexity Number of Personal Factors/Comorbidities 1-2 Number of Body Systems Impaired 1-2 Clinical Presentation at Evaluation Stable Impairments Impairments Functional Mobility,Pain,ROM, Soft Tissue Mobility Other Concerns Fall Risk History of multiple falls Goals 3 Impairment Pt shoulder pain limits sleep Digital Controls Technical Officer Goal (LTG) Pt to sleep on right side uninturrupted for 6 hours. LTG Duration 07/19/19 2 Impairment Pt has limited ROM which creates functional mobility limitations Short Term Goal (STG) Pt to don jacket with no increased shoulder pain STG Duration 06/07/19 Digital Controls Technical Officer Goal (LTG) Pt to reach overhead and turn off her closet light without increased shoulder pain. LTG Duration 07/19/19 1 Impairment Pt does not have an appropriate home exercise program Short Term Goal (STG) Pt to be independent and compliant with an appropriate HEP STG Duration 05/27/19 Assessment Summary Assessment Pt presents with signs and symptoms of a soft tissue strain in her right shoulder. Pt exhibits limited ROM and tenderness in her infraspinatus and supraspinatus, as well as along her subacromial space, likely indicating impingement. Overhead and internal rotation motions tend to cause the most pain. Overall, pt feels like her shoulder has improved over the last few months, and should benefit from skilled therapy focusing on shoulder strengthening, ROM /flexibility, STM, joint mobilizations, and pain- control modalities. Physical Therapy Plan Frequency and Duration Frequency of Treatment 2x/Week Duration of Treatment 12 weeks Plan of Care Start Date 04/26/19 Plan of Care End Date 07/19/19 Therapeutic Interventions Therapeutic Interventions Home Exercise Program,Joint Mobilizations,Manual Therapy, Patient/Caregiver Education, Self-Care/Home Management,Soft Tissue Mobilization, Therapeutic Exercises Modalities Cold Pack/Ice Massage,Electric Stimulation,Hot Packs, Ultrasound Next Visit Focus/Plan Next Note Type Treatment Note Next Visit Plan STM, Shoulder ROM, Strengthening
--- NOTE | 2019-04-25 15:15 | PT.OPPOC ---
Physical, Occupational & Speech Therapy At [facility] Current Diagnoses Stiffness of right shoulder, not elsewhere classified (04/25/19) Other injury of muscle(s) and tendon(s) of the rotator cuff of right shoulder, subsequent encounter (04/25/19) History of falling (04/25/19) Visit Care Team Role Provider Type Maryanne Gaviria PA-C Attending Provider Advanced Hardwood Finisher Family Provider Primary Care Provider Specialty: Internal Medicine Address: [address] [place] [address], [facility] Email: [email or web address] Plan Of Care PT-OP-T Assessment and Plan Start: 04/25/19 17:48 Freq: Status: Active Protocol: Document 04/25/19 14:30 DCW (Rec: 04/26/19 12:26 DCW [id number]) Physical Therapy Assessment Rehab Potential Rehabilitation Potential Good Evaluation Complexity Number of Personal Factors/Comorbidities 1-2 Number of Body Systems Impaired 1-2 Clinical Presentation at Evaluation Stable Impairments Impairments Functional Mobility,Pain,ROM, Soft Tissue Mobility Other Concerns Fall Risk History of multiple falls Goals 3 Impairment Pt shoulder pain limits sleep Print Developer Goal (LTG) Pt to sleep on right side uninturrupted for 6 hours. LTG Duration 07/19/19 2 Impairment Pt has limited ROM which creates functional mobility limitations Short Term Goal (STG) Pt to don jacket with no increased shoulder pain STG Duration 06/07/19 Print Developer Goal (LTG) Pt to reach overhead and turn off her closet light without increased shoulder pain. LTG Duration 07/19/19 1 Impairment Pt does not have an appropriate home exercise program Short Term Goal (STG) Pt to be independent and compliant with an appropriate HEP STG Duration 05/27/19 Assessment Summary Assessment Pt presents with signs and symptoms of a soft tissue strain in her right shoulder. Pt exhibits limited ROM and tenderness in her infraspinatus and supraspinatus, as well as along her subacromial space, likely indicating impingement. Overhead and internal rotation motions tend to cause the most pain. Overall, pt feels like her shoulder has improved over the last few months, and should benefit from skilled therapy focusing on shoulder strengthening, ROM /flexibility, STM, joint mobilizations, and pain- control modalities. Physical Therapy Plan Frequency and Duration Frequency of Treatment 2x/Week Duration of Treatment 12 weeks Plan of Care Start Date 04/26/19 Plan of Care End Date 07/19/19 Therapeutic Interventions Therapeutic Interventions Home Exercise Program,Joint Mobilizations,Manual Therapy, Patient/Caregiver Education, Self-Care/Home Management,Soft Tissue Mobilization, Therapeutic Exercises Modalities Cold Pack/Ice Massage,Electric Stimulation,Hot Packs, Ultrasound Next Visit Focus/Plan Next Note Type Treatment Note Next Visit Plan STM, Shoulder ROM, Strengthening Plan of Care Dates Plan of Care Start Date 04/26/19 Plan of Care End Date 07/19/19 Electronically Signed by: Graeme Tilley, PT 04/26/19 [id number] Please Sign and Return: I have reviewed this Plan of Care and certify that the skilled therapy services above are required to meet the patient?s needs. Physician Signature Date Printed Name and Credentials Clinical Instructor Signature Printed Name and Credentials
--- NOTE | 2019-04-25 15:15 | PT.OIE ---
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) Essential (primary) hypertension (Chronic) GERD (gastroesophageal reflux disease) (Chronic) Headache (Chronic) Heart failure (Chronic) History of fracture of right hip (Resolved) History of nephrectomy, unilateral (Acute) Hyperglycemia (Chronic) Hyperlipidemia (Chronic) Insomnia (Chronic) Major depressive disorder, recurrent, moderate (Chronic) Mixed hyperlipidemia (Chronic) 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) Sleep apnea (Chronic) Small bowel obstruction, partial (Acute) Spinal stenosis of lumbar region (Chronic) Vitamin D deficiency (Chronic) Past Surgical History (Last Reviewed 01/25/18 @ 19:07 by Joel Castaneda MD) History of lumpectomy (Acute) History of nephrectomy (Acute) History of repair of aneurysm of abdominal aorta using endovascular stent graft (Acute) Visit Care Team Role Provider Type Maryanne Gaviria PA-C Attending Provider Advanced Alliance Consultant Family Provider Primary Care Provider Specialty: Internal Medicine Address: [address] [place] [address] Email: [email or web address] Physical Therapy Initial Evaluation PT-OP-A Visit Information Start: 04/25/19 17:48 Freq: Status: Active Protocol: Document 04/25/19 14:30 DCW (Rec: 04/25/19 17:55 DCW [id number]) Out-Patient Physical Therapy Visit Information Visit Information Visit Type Initial Evaluation Visit Start Time 14:30 Visit Stop Time 15:15 Total Visit Minutes 45 Visit Number 1 Number of PSYCHOLOGY PHYSICIAN Visits 0 Evaluation Information Evaluation Date 04/25/19 PT-OP-B Current Condition Start: 04/25/19 17:48 Freq: Status: Active Protocol: Document 04/25/19 14:30 DCW (Rec: 04/26/19 12:26 DCW [id number]) Current Condition History of Current Condition Onset Date 2-3 months Current Complaints R shoulder pain History of Current Condition Pt is a 78 year old female presenting with a 2-3 month history of right shoulder pain . Pt notes it comes and goes, and most of the time really isn't all that bad, but has occasional very very bad pain with certain movements. Pt has difficulty with reaching overhead to turn off a light, or reaching back to don her jacket. Pt admits to some recent falls, the most recent one on , which was me making a bad decision to walk on very clean, shiny floors while wearing socks. Pt thinks one of her falls may have been the cause of her shoulder pain, but she isn't really sure. Prior Treatments and Tests Shoulder x-ray: IMPRESSION: Degenerative change. No acute fracture dislocation or suspicious bony lesion. Per: Dequan Hickey M.D. on 02/20/2019 PT-OP-C Subjective Start: 04/25/19 17:48 Freq: Status: Active Protocol: Document 04/25/19 14:30 DCW (Rec: 04/26/19 09:39 [facility] [id number]) OP-PT Subjective Patient Comments Patient Comments It really isn't all that bad, but she (Maryanne Gaviria PA-C) said I should go to PT. Patient Reported Progress Improving Patient Questionnaires Quick Dash- Upper Extremity Quick Dash UE Score 38.64% Quick Dash UE Impairment 20 to 39% Impaired (Score 20- 39) OP-PT Pain Assessment Location Right Shoulder Intensity 4 Scale Used Numeric (1 - 10) PT-OP-E Functional Tests Start: 04/25/19 17:48 Freq: Status: Active Protocol: Document 04/25/19 14:30 DCW (Rec: 04/26/19 09:34 DCW [id number]) Functional Tests Apley's Scratch Test Action 1- Left Lateral opposite shoulder Action 1- Right Lateral opposite shoulder Action 2- Left T2 Action 2- Right C6 Action 3- Left T7 Action 3- Right T12 PT-OP-F Manual Assessment Start: 04/25/19 17:48 Freq: Status: Active Protocol: Document 04/25/19 14:30 DCW (Rec: 04/26/19 09:29 DCW [id number]) Manual Assessments Soft Tissue Assessment Soft Tissue Mobility Assessment Tenderness to palpation: 3/4 - Wincing and withdraw along right supraspinatus and infraspinatus Joint Mobility Assessment Joint Mobility Assessment Tenderness to palpation: 2/4 - Pain with wincing along subacromial space PT-OP-K Range of Motion Start: 04/25/19 17:48 Freq: Status: Active Protocol: Document 04/25/19 14:30 DCW (Rec: 04/25/19 18:00 GAW [id number]) Shoulder Goniometric Range of Motion Shoulder Right Active Testing Position Sitting Flexion 140 Extension 108 External Rotation at 0 degrees Abduction 55 Left Active Shoulder ROM WFL Yes Testing Position Sitting Flexion 180 Abduction 180 External Rotation at 0 degrees Abduction 53 PT-OP-L Special Tests Start: 04/25/19 17:48 Freq: Status: Active Protocol: Document 04/25/19 14:30 DCW (Rec: 04/26/19 09:29 [facility] [id number]) Special Tests Shoulder Special Tests Passive ER Rotator Cuff Test Results Mild R pain Drop Arm Rotator Cuff Test Results Negative Carvalho Bharath Impingement Test Results Positive Right Painful Arc Test Results Positive Right Lift-Off Rotator Cuff Test Results Negative Belly Press Test Results Negative PT-OP-M Strength Start: 04/25/19 17:48 Freq: Status: Active Protocol: Document 04/25/19 14:30 DCW (Rec: 04/25/19 17:59 [id number]) Shoulder Strength Shoulder Manual Muscle Testing Right Flexion 4 Good Abduction (C5) 4 Good External Rotation 4+ Good+ Internal Rotation 4+ Good+ Left Flexion 4+ Good+ Abduction (C5) 4+ Good+ External Rotation 4+ Good+ Internal Rotation 4+ Good+ PT-OP-Q Treatments Start: 04/25/19 17:48 Freq: Status: Active Protocol: Document 04/25/19 14:30 DCW (Rec: 04/25/19 17:58 GAW [id number]) Therapeutic Exercises Sitting Exercises Table stretch Sitting Exercise Name Flexion table stretch Side right Standing Exercises ER/IR Standing Exercise Name Shoulder ER/IR Side right Resistance Lv 2 Equipment Used T-band Pendulums Standing Exercise Name Pendulums Side right PT-OP-T Assessment and Plan Start: 04/25/19 17:48 Freq: Status: Active Protocol: Document 04/25/19 14:30 DCW (Rec: 04/26/19 12:26 DCW [id number]) Physical Therapy Assessment Rehab Potential Rehabilitation Potential Good Evaluation Complexity Number of Personal Factors/Comorbidities 1-2 Number of Body Systems Impaired 1-2 Clinical Presentation at Evaluation Stable Impairments Impairments Functional Mobility,Pain,ROM, Soft Tissue Mobility Other Concerns Fall Risk History of multiple falls Goals 3 Impairment Pt shoulder pain limits sleep Wig Dresser Goal (LTG) Pt to sleep on right side uninturrupted for 6 hours. LTG Duration 07/19/19 2 Impairment Pt has limited ROM which creates functional mobility limitations Short Term Goal (STG) Pt to don jacket with no increased shoulder pain STG Duration 06/07/19 Wig Dresser Goal (LTG) Pt to reach overhead and turn off her closet light without increased shoulder pain. LTG Duration 07/19/19 1 Impairment Pt does not have an appropriate home exercise program Short Term Goal (STG) Pt to be independent and compliant with an appropriate HEP STG Duration 05/27/19 Assessment Summary Assessment Pt presents with signs and symptoms of a soft tissue strain in her right shoulder. Pt exhibits limited ROM and tenderness in her infraspinatus and supraspinatus, as well as along her subacromial space, likely indicating impingement. Overhead and internal rotation motions tend to cause the most pain. Overall, pt feels like her shoulder has improved over the last few months, and should benefit from skilled therapy focusing on shoulder strengthening, ROM /flexibility, STM, joint mobilizations, and pain- control modalities. Physical Therapy Plan Frequency and Duration Frequency of Treatment 2x/Week Duration of Treatment 12 weeks Plan of Care Start Date 04/25/19 Plan of Care End Date 07/19/19 Therapeutic Interventions Therapeutic Interventions Home Exercise Program,Joint Mobilizations,Manual Therapy, Patient/Caregiver Education, Self-Care/Home Management,Soft Tissue Mobilization, Therapeutic Exercises Modalities Cold Pack/Ice Massage,Electric Stimulation,Hot Packs, Ultrasound Next Visit Focus/Plan Next Note Type Treatment Note Next Visit Plan STM, Shoulder ROM, Strengthening
--- NOTE | 2019-04-26 12:34 | PT.OIE ---
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) Essential (primary) hypertension (Chronic) GERD (gastroesophageal reflux disease) (Chronic) Headache (Chronic) Heart failure (Chronic) History of fracture of right hip (Resolved) History of nephrectomy, unilateral (Acute) Hyperglycemia (Chronic) Hyperlipidemia (Chronic) Insomnia (Chronic) Major depressive disorder, recurrent, moderate (Chronic) Mixed hyperlipidemia (Chronic) 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) Sleep apnea (Chronic) Small bowel obstruction, partial (Acute) Spinal stenosis of lumbar region (Chronic) Vitamin D deficiency (Chronic) Past Surgical History (Last Reviewed 01/25/18 @ 19:07 by Joel Castaneda MD) History of lumpectomy (Acute) History of nephrectomy (Acute) History of repair of aneurysm of abdominal aorta using endovascular stent graft (Acute) Visit Care Team Role Provider Type Maryanne Gaviria PA-C Attending Provider Advanced [employer] Truck Driver Family Provider Primary Care Provider Specialty: Internal Medicine Address: [address] [place] [address] Email: [email or web address] Physical Therapy Initial Evaluation PT-OP-A Visit Information Start: 04/25/19 17:48 Freq: Status: Active Protocol: Document 04/25/19 14:30 DCW (Rec: 04/25/19 17:55 DCW [id number]) Out-Patient Physical Therapy Visit Information Visit Information Visit Type Initial Evaluation Visit Start Time 14:30 Visit Stop Time 15:15 Total Visit Minutes 45 Visit Number 1 Number of CARPENTER/LABOR Visits 0 Evaluation Information Evaluation Date 04/25/19 PT-OP-B Current Condition Start: 04/25/19 17:48 Freq: Status: Active Protocol: Document 04/25/19 14:30 DCW (Rec: 04/26/19 12:26 DCW [id number]) Current Condition History of Current Condition Onset Date 2-3 months Current Complaints R shoulder pain History of Current Condition Pt is a 78 year old female presenting with a 2-3 month history of right shoulder pain . Pt notes it comes and goes, and most of the time really isn't all that bad, but has occasional very very bad pain with certain movements. Pt has difficulty with reaching overhead to turn off a light, or reaching back to don her jacket. Pt admits to some recent falls, the most recent one on , which was me making a bad decision to walk on very clean, shiny floors while wearing socks. Pt thinks one of her falls may have been the cause of her shoulder pain, but she isn't really sure. Prior Treatments and Tests Shoulder x-ray: IMPRESSION: Degenerative change. No acute fracture dislocation or suspicious bony lesion. Per: Dequan Hickey M.D. on 02/20/2019 PT-OP-C Subjective Start: 04/25/19 17:48 Freq: Status: Active Protocol: Document 04/25/19 14:30 DCW (Rec: 04/26/19 09:39 [facility] [id number]) OP-PT Subjective Patient Comments Patient Comments It really isn't all that bad, but she (Maryanne Gaviria PA-C) said I should go to PT. Patient Reported Progress Improving Patient Questionnaires Quick Dash- Upper Extremity Quick Dash UE Score 38.64% Quick Dash UE Impairment 20 to 39% Impaired (Score 20- 39) OP-PT Pain Assessment Location Right Shoulder Intensity 4 Scale Used Numeric (1 - 10) PT-OP-E Functional Tests Start: 04/25/19 17:48 Freq: Status: Active Protocol: Document 04/25/19 14:30 DCW (Rec: 04/26/19 09:34 DCW [id number]) Functional Tests Apley's Scratch Test Action 1- Left Lateral opposite shoulder Action 1- Right Lateral opposite shoulder Action 2- Left T2 Action 2- Right C6 Action 3- Left T7 Action 3- Right T12 PT-OP-F Manual Assessment Start: 04/25/19 17:48 Freq: Status: Active Protocol: Document 04/25/19 14:30 DCW (Rec: 04/26/19 09:29 DCW [id number]) Manual Assessments Soft Tissue Assessment Soft Tissue Mobility Assessment Tenderness to palpation: 3/4 - Wincing and withdraw along right supraspinatus and infraspinatus Joint Mobility Assessment Joint Mobility Assessment Tenderness to palpation: 2/4 - Pain with wincing along subacromial space PT-OP-K Range of Motion Start: 04/25/19 17:48 Freq: Status: Active Protocol: Document 04/25/19 14:30 DCW (Rec: 04/25/19 18:00 CAW [id number]) Shoulder Goniometric Range of Motion Shoulder Right Active Testing Position Sitting Flexion 140 Extension 108 External Rotation at 0 degrees Abduction 55 Left Active Shoulder ROM WFL Yes Testing Position Sitting Flexion 180 Abduction 180 External Rotation at 0 degrees Abduction 53 PT-OP-L Special Tests Start: 04/25/19 17:48 Freq: Status: Active Protocol: Document 04/25/19 14:30 DCW (Rec: 04/26/19 09:29 [facility] [id number]) Special Tests Shoulder Special Tests Passive ER Rotator Cuff Test Results Mild R pain Drop Arm Rotator Cuff Test Results Negative Carvalho Bharath Impingement Test Results Positive Right Painful Arc Test Results Positive Right Lift-Off Rotator Cuff Test Results Negative Belly Press Test Results Negative PT-OP-M Strength Start: 04/25/19 17:48 Freq: Status: Active Protocol: Document 04/25/19 14:30 DCW (Rec: 04/25/19 17:59 [id number] Shoulder Strength Shoulder Manual Muscle Testing Right Flexion 4 Good Abduction (C5) 4 Good External Rotation 4+ Good+ Internal Rotation 4+ Good+ Left Flexion 4+ Good+ Abduction (C5) 4+ Good+ External Rotation 4+ Good+ Internal Rotation 4+ Good+ PT-OP-Q Treatments Start: 04/25/19 17:48 Freq: Status: Active Protocol: Document 04/25/19 14:30 DCW (Rec: 04/25/19 17:58 CAW [id number]) Therapeutic Exercises Sitting Exercises Table stretch Sitting Exercise Name Flexion table stretch Side right Standing Exercises ER/IR Standing Exercise Name Shoulder ER/IR Side right Resistance Lv 2 Equipment Used T-band Pendulums Standing Exercise Name Pendulums Side right PT-OP-T Assessment and Plan Start: 04/25/19 17:48 Freq: Status: Active Protocol: Document 04/25/19 14:30 DCW (Rec: 04/26/19 12:26 DCW [id number]) Physical Therapy Assessment Rehab Potential Rehabilitation Potential Good Evaluation Complexity Number of Personal Factors/Comorbidities 1-2 Number of Body Systems Impaired 1-2 Clinical Presentation at Evaluation Stable Impairments Impairments Functional Mobility,Pain,ROM, Soft Tissue Mobility Other Concerns Fall Risk History of multiple falls Goals 3 Impairment Pt shoulder pain limits sleep Stationary Engineer Apprentice Goal (LTG) Pt to sleep on right side uninturrupted for 6 hours. LTG Duration 07/19/19 2 Impairment Pt has limited ROM which creates functional mobility limitations Short Term Goal (STG) Pt to don jacket with no increased shoulder pain STG Duration 06/07/19 Stationary Engineer Apprentice Goal (LTG) Pt to reach overhead and turn off her closet light without increased shoulder pain. LTG Duration 07/19/19 1 Impairment Pt does not have an appropriate home exercise program Short Term Goal (STG) Pt to be independent and compliant with an appropriate HEP STG Duration 05/27/19 Assessment Summary Assessment Pt presents with signs and symptoms of a soft tissue strain in her right shoulder. Pt exhibits limited ROM and tenderness in her infraspinatus and supraspinatus, as well as along her subacromial space, likely indicating impingement. Overhead and internal rotation motions tend to cause the most pain. Overall, pt feels like her shoulder has improved over the last few months, and should benefit from skilled therapy focusing on shoulder strengthening, ROM /flexibility, STM, joint mobilizations, and pain- control modalities. Physical Therapy Plan Frequency and Duration Frequency of Treatment 2x/Week Duration of Treatment 12 weeks Plan of Care Start Date 04/25/19 Plan of Care End Date 07/19/19 Therapeutic Interventions Therapeutic Interventions Home Exercise Program,Joint Mobilizations,Manual Therapy, Patient/Caregiver Education, Self-Care/Home Management,Soft Tissue Mobilization, Therapeutic Exercises Modalities Cold Pack/Ice Massage,Electric Stimulation,Hot Packs, Ultrasound Next Visit Focus/Plan Next Note Type Treatment Note Next Visit Plan STM, Shoulder ROM, Strengthening
--- NOTE | 2019-04-28 15:18 | PT.OTN ---
Current Diagnoses Stiffness of right shoulder, not elsewhere classified (04/28/19) Other injury of muscle(s) and tendon(s) of the rotator cuff of right shoulder, subsequent encounter (04/28/19) History of falling (04/28/19) Physical Therapy Treatment Note PT-OP-A Visit Information Start: 04/25/19 17:48 Freq: Status: Active Protocol: Document 04/28/19 14:30 DCW (Rec: 04/28/19 15:18 DCW [id number]) Out-Patient Physical Therapy Visit Information Visit Information Visit Type Treatment Note Visit Start Time 14:30 Visit Stop Time 15:15 Total Visit Minutes 45 Visit Number 2 Number of IRONWORKER APPRENTICE SHOP Visits 0 Evaluation Information Evaluation Date 04/25/19 PT-OP-B Current Condition Start: 04/25/19 17:48 Freq: Status: Active Protocol: Document 04/25/19 14:30 DCW (Rec: 04/26/19 12:26 DCW [id number]) Current Condition History of Current Condition Onset Date 2-3 months Current Complaints R shoulder pain History of Current Condition Pt is a 78 year old female presenting with a 2-3 month history of right shoulder pain . Pt notes it comes and goes, and most of the time really isn't all that bad, but has occasional very very bad pain with certain movements. Pt has difficulty with reaching overhead to turn off a light, or reaching back to don her jacket. Pt admits to some recent falls, the most recent one on , which was me making a bad decision to walk on very clean, shiny floors while wearing socks. Pt thinks one of her falls may have been the cause of her shoulder pain, but she isn't really sure. Prior Treatments and Tests Shoulder x-ray: IMPRESSION: Degenerative change. No acute fracture dislocation or suspicious bony lesion. Per: Dequan Hickey M.D. on 02/20/2019 PT-OP-C Subjective Start: 04/25/19 17:48 Freq: Status: Active Protocol: Document 04/28/19 14:30 DCW (Rec: 04/28/19 15:18 DCW [id number]) OP-PT Subjective Patient Comments Patient Comments Pt notes her shoulder doesn't hurt today, but she has been having a lot of back pain, which even woke her up this morning.Pt's description, however, confirms pain is actually located on right scapula, and likely associated with her shoulder symptoms. PT-OP-E Functional Tests Start: 04/25/19 17:48 Freq: Status: Active Protocol: Document 04/25/19 14:30 DCW (Rec: 04/26/19 09:34 DCW [id number]) Functional Tests Apley's Scratch Test Action 1- Left Lateral opposite shoulder Action 1- Right Lateral opposite shoulder Action 2- Left T2 Action 2- Right C6 Action 3- Left T7 Action 3- Right T12 PT-OP-F Manual Assessment Start: 04/25/19 17:48 Freq: Status: Active Protocol: Document 04/25/19 14:30 DCW (Rec: 04/26/19 09:29 DCW [id number]) Manual Assessments Soft Tissue Assessment Soft Tissue Mobility Assessment Tenderness to palpation: 3/4 - Wincing and withdraw along right supraspinatus and infraspinatus Joint Mobility Assessment Joint Mobility Assessment Tenderness to palpation: 2/4 - Pain with wincing along subacromial space PT-OP-K Range of Motion Start: 04/25/19 17:48 Freq: Status: Active Protocol: Document 04/25/19 14:30 DCW (Rec: 04/25/19 18:00 DCW [id number]) Shoulder Goniometric Range of Motion Shoulder Right Active Testing Position Sitting Flexion 140 Extension 108 External Rotation at 0 degrees Abduction 55 Left Active Shoulder ROM WFL Yes Testing Position Sitting Flexion 180 Abduction 180 External Rotation at 0 degrees Abduction 53 PT-OP-L Special Tests Start: 04/25/19 17:48 Freq: Status: Active Protocol: Document 04/25/19 14:30 DCW (Rec: 04/26/19 09:29 DCW [id number]) Special Tests Shoulder Special Tests Passive ER Rotator Cuff Test Results Mild R pain Drop Arm Rotator Cuff Test Results Negative Carvalho Bharath Impingement Test Results Positive Right Painful Arc Test Results Positive Right Lift-Off Rotator Cuff Test Results Negative Belly Press Test Results Negative PT-OP-M Strength Start: 04/25/19 17:48 Freq: Status: Active Protocol: Document 04/25/19 14:30 DCW (Rec: 04/25/19 17:59 DCW [id number]) Shoulder Strength Shoulder Manual Muscle Testing Right Flexion 4 Good Abduction (C5) 4 Good External Rotation 4+ Good+ Internal Rotation 4+ Good+ Left Flexion 4+ Good+ Abduction (C5) 4+ Good+ External Rotation 4+ Good+ Internal Rotation 4+ Good+ PT-OP-Q Treatments Start: 04/25/19 17:48 Freq: Status: Active Protocol: Document 04/28/19 14:30 DCW (Rec: 04/28/19 15:18 DCW [id number]) Cardio Equipment Upper Body Ergometer (UBE) Duration (Minutes) 6 RPM 60 Seat Position 12 Height 2 Therapeutic Exercises Sitting Exercises Pulleys Sitting Exercise Name Shoulder Flexion, Abduction Side bilateral Equipment Used Pulleys Standing Exercises Extension Standing Exercise Name Extension Side bilateral Resistance Lv 2 Equipment Used T-band ER/IR Standing Exercise Name Shoulder ER/IR Side right Resistance Lv 2 Equipment Used T-band scapular retraction/rows Standing Exercise Name Rows Side bilateral Resistance Lv 2 Equipment Used T-band Manual Therapy Treatment Soft Tissue Mobilization Rhomboids Body Location R Rhomboids Mobilization Type Strumming,Sustained Pressure Supraspinatus Body Location R Supraspinatus Mobilization Type Strumming,Sustained Pressure Joint Mobilizations Scapulothoracic Joint Scapulothoracic Direction Lateral Grade III Body Position Hooklying PT-OP-T Assessment and Plan Start: 04/25/19 17:48 Freq: Status: Active Protocol: Document 04/28/19 14:30 DCW (Rec: 04/28/19 15:18 DCW [id number]) Physical Therapy Assessment Impairments Impairments Functional Mobility,Pain,ROM, Soft Tissue Mobility Goals 3 Impairment Pt shoulder pain limits sleep Penitentiary Goal (LTG) Pt to sleep on right side uninturrupted for 6 hours. LTG Duration 07/19/19 2 Impairment Pt has limited ROM which creates functional mobility limitations Short Term Goal (STG) Pt to don jacket with no increased shoulder pain STG Duration 06/07/19 Penitentiary Goal (LTG) Pt to reach overhead and turn off her closet light without increased shoulder pain. LTG Duration 07/19/19 1 Impairment Pt does not have an appropriate home exercise program Short Term Goal (STG) Pt to be independent and compliant with an appropriate HEP STG Duration 05/27/19 Assessment Summary Assessment Pt tolerated treatment well, noticeable tenderness with STM , however pt felt like things loosened up following session. Physical Therapy Plan Frequency and Duration Frequency of Treatment 2x/Week Duration of Treatment 12 weeks Plan of Care Start Date 04/25/19 Plan of Care End Date 07/19/19 Therapeutic Interventions Therapeutic Interventions Home Exercise Program,Joint Mobilizations,Manual Therapy, Patient/Caregiver Education, Self-Care/Home Management,Soft Tissue Mobilization, Therapeutic Exercises Modalities Cold Pack/Ice Massage,Electric Stimulation,Hot Packs, Ultrasound Next Visit Focus/Plan Next Note Type Treatment Note Next Visit Plan STM, Shoulder ROM, Strengthening
--- NOTE | 2019-05-05 15:14 | PT.OTN ---
Current Diagnoses Stiffness of right shoulder, not elsewhere classified (05/05/19) Other injury of muscle(s) and tendon(s) of the rotator cuff of right shoulder, subsequent encounter (05/05/19) History of falling (05/05/19) Physical Therapy Treatment Note PT-OP-A Visit Information Start: 04/25/19 17:48 Freq: Status: Active Protocol: Document 05/05/19 14:30 DCW (Rec: 05/05/19 15:12 DCW [id number]) Out-Patient Physical Therapy Visit Information Visit Information Visit Type Treatment Note Visit Start Time 14:30 Visit Stop Time 15:15 Total Visit Minutes 45 Visit Number 3 Number of WATER POLLUTION CONTROL TECHNICIAN Visits 0 Evaluation Information Evaluation Date 04/25/19 PT-OP-B Current Condition Start: 04/25/19 17:48 Freq: Status: Active Protocol: Document 04/25/19 14:30 DCW (Rec: 04/26/19 12:26 DCW [id number]) Current Condition History of Current Condition Onset Date 2-3 months Current Complaints R shoulder pain History of Current Condition Pt is a 78 year old female presenting with a 2-3 month history of right shoulder pain . Pt notes it comes and goes, and most of the time really isn't all that bad, but has occasional very very bad pain with certain movements. Pt has difficulty with reaching overhead to turn off a light, or reaching back to don her jacket. Pt admits to some recent falls, the most recent one on , which was me making a bad decision to walk on very clean, shiny floors while wearing socks. Pt thinks one of her falls may have been the cause of her shoulder pain, but she isn't really sure. Prior Treatments and Tests Shoulder x-ray: IMPRESSION: Degenerative change. No acute fracture dislocation or suspicious bony lesion. Per: Dequan Hickey M.D. on 02/20/2019 PT-OP-C Subjective Start: 04/25/19 17:48 Freq: Status: Active Protocol: Document 05/05/19 14:30 DCW (Rec: 05/05/19 15:12 DCW [id number]) OP-PT Subjective Patient Comments Patient Comments Pt feels her shoulder does seem to be getting a little better. PT-OP-E Functional Tests Start: 04/25/19 17:48 Freq: Status: Active Protocol: Document 04/25/19 14:30 DCW (Rec: 04/26/19 09:34 DCW [id number]) Functional Tests Apley's Scratch Test Action 1- Left Lateral opposite shoulder Action 1- Right Lateral opposite shoulder Action 2- Left T2 Action 2- Right C6 Action 3- Left T7 Action 3- Right T12 PT-OP-F Manual Assessment Start: 04/25/19 17:48 Freq: Status: Active Protocol: Document 04/25/19 14:30 DCW (Rec: 04/26/19 09:29 DCW [id number]) Manual Assessments Soft Tissue Assessment Soft Tissue Mobility Assessment Tenderness to palpation: 3/4 - Wincing and withdraw along right supraspinatus and infraspinatus Joint Mobility Assessment Joint Mobility Assessment Tenderness to palpation: 2/4 - Pain with wincing along subacromial space PT-OP-K Range of Motion Start: 04/25/19 17:48 Freq: Status: Active Protocol: Document 04/25/19 14:30 DCW (Rec: 04/25/19 18:00 DCW [id number]) Shoulder Goniometric Range of Motion Shoulder Right Active Testing Position Sitting Flexion 140 Extension 108 External Rotation at 0 degrees Abduction 55 Left Active Shoulder ROM WFL Yes Testing Position Sitting Flexion 180 Abduction 180 External Rotation at 0 degrees Abduction 53 PT-OP-L Special Tests Start: 04/25/19 17:48 Freq: Status: Active Protocol: Document 04/25/19 14:30 DCW (Rec: 04/26/19 09:29 DCW [id number]) Special Tests Shoulder Special Tests Passive ER Rotator Cuff Test Results Mild R pain Drop Arm Rotator Cuff Test Results Negative Carvalho Bharath Impingement Test Results Positive Right Painful Arc Test Results Positive Right Lift-Off Rotator Cuff Test Results Negative Belly Press Test Results Negative PT-OP-M Strength Start: 04/25/19 17:48 Freq: Status: Active Protocol: Document 04/25/19 14:30 DCW (Rec: 04/25/19 17:59 DCW [id number]) Shoulder Strength Shoulder Manual Muscle Testing Right Flexion 4 Good Abduction (C5) 4 Good External Rotation 4+ Good+ Internal Rotation 4+ Good+ Left Flexion 4+ Good+ Abduction (C5) 4+ Good+ External Rotation 4+ Good+ Internal Rotation 4+ Good+ PT-OP-Q Treatments Start: 04/25/19 17:48 Freq: Status: Active Protocol: Document 05/05/19 14:30 DCW (Rec: 05/05/19 15:12 DCW [id number]) Cardio Equipment Upper Body Ergometer (UBE) Duration (Minutes) 6 RPM 60 Seat Position 12 Height 3 Therapeutic Exercises Supine Exercises 2 Supine Exercise Name Horizontal Adduction Side bilateral Resistance 2# 1 Supine Exercise Name Serratus Punch Side bilateral Resistance 2# Sitting Exercises Pulleys Sitting Exercise Name Shoulder Flexion, Abduction Side bilateral Equipment Used Pulleys Standing Exercises Extension Standing Exercise Name Extension Side bilateral Resistance Lv 2 Equipment Used T-band ER/IR Standing Exercise Name Shoulder ER/IR Side right Resistance Lv 2 Equipment Used T-band scapular retraction/rows Standing Exercise Name Rows Side bilateral Resistance Lv 2 Equipment Used T-band Other Exercises Resisted Side-stepping Other Exercise Name Resisted UE Side-stepping Resistance Yellow Equipment Used T-band Manual Therapy Treatment Soft Tissue Mobilization Rhomboids Body Location R Rhomboids Mobilization Type Strumming,Sustained Pressure Supraspinatus Body Location R Supraspinatus Mobilization Type Strumming,Sustained Pressure Joint Mobilizations Scapulothoracic Joint Scapulothoracic Direction Lateral Grade III Body Position Hooklying PT-OP-T Assessment and Plan Start: 04/25/19 17:48 Freq: Status: Active Protocol: Document 05/05/19 14:30 DCW (Rec: 05/05/19 15:12 DCW [id number]) Physical Therapy Assessment Impairments Impairments Functional Mobility,Pain,ROM, Soft Tissue Mobility Goals 3 Impairment Pt shoulder pain limits sleep Senior Regulatory Affairs Specialist Goal (LTG) Pt to sleep on right side uninturrupted for 6 hours. LTG Duration 07/19/19 2 Impairment Pt has limited ROM which creates functional mobility limitations Short Term Goal (STG) Pt to don jacket with no increased shoulder pain STG Duration 06/07/19 Prison Goal (LTG) Pt to reach overhead and turn off her closet light without increased shoulder pain. LTG Duration 07/19/19 1 Impairment Pt does not have an appropriate home exercise program Short Term Goal (STG) Pt to be independent and compliant with an appropriate HEP STG Duration 05/27/19 Assessment Summary Assessment Pt showing improvement with strength and ROM, has been sleeping better, able to position herself with her right arm overhead without pain waking her up. Physical Therapy Plan Frequency and Duration Frequency of Treatment 2x/Week Duration of Treatment 12 weeks Plan of Care Start Date 04/25/19 Plan of Care End Date 07/19/19 Therapeutic Interventions Therapeutic Interventions Home Exercise Program,Joint Mobilizations,Manual Therapy, Patient/Caregiver Education, Self-Care/Home Management,Soft Tissue Mobilization, Therapeutic Exercises Modalities Cold Pack/Ice Massage,Electric Stimulation,Hot Packs, Ultrasound Next Visit Focus/Plan Next Note Type Treatment Note Next Visit Plan STM, Shoulder ROM, Strengthening
--- NOTE | 2019-05-12 15:12 | PT.OTN ---
Current Diagnoses Stiffness of right shoulder, not elsewhere classified (05/12/19) Other injury of muscle(s) and tendon(s) of the rotator cuff of right shoulder, subsequent encounter (05/12/19) History of falling (05/12/19) Physical Therapy Treatment Note PT-OP-A Visit Information Start: 04/25/19 17:48 Freq: Status: Active Protocol: Document 05/12/19 14:30 DCW (Rec: 05/12/19 15:11 DCW [id number]) Out-Patient Physical Therapy Visit Information Visit Information Visit Type Treatment Note Visit Start Time 14:30 Visit Stop Time 15:15 Total Visit Minutes 45 Visit Number 4 Number of [employer]ERGY Visits 0 Evaluation Information Evaluation Date 04/25/19 PT-OP-B Current Condition Start: 04/25/19 17:48 Freq: Status: Active Protocol: Document 04/25/19 14:30 DCW (Rec: 04/26/19 12:26 DCW [id number]) Current Condition History of Current Condition Onset Date 2-3 months Current Complaints R shoulder pain History of Current Condition Pt is a 78 year old female presenting with a 2-3 month history of right shoulder pain . Pt notes it comes and goes, and most of the time really isn't all that bad, but has occasional very very bad pain with certain movements. Pt has difficulty with reaching overhead to turn off a light, or reaching back to don her jacket. Pt admits to some recent falls, the most recent one on , which was me making a bad decision to walk on very clean, shiny floors while wearing socks. Pt thinks one of her falls may have been the cause of her shoulder pain, but she isn't really sure. Prior Treatments and Tests Shoulder x-ray: IMPRESSION: Degenerative change. No acute fracture dislocation or suspicious bony lesion. Per: Dequan Hickey M.D. on 02/20/2019 PT-OP-C Subjective Start: 04/25/19 17:48 Freq: Status: Active Protocol: Document 05/12/19 14:30 DCW (Rec: 05/12/19 15:11 DCW [id number]) OP-PT Subjective Patient Comments Patient Comments I'm not feeling very good this week. I get really woozy if I'm standing too long, I'm just not right. PT-OP-E Functional Tests Start: 04/25/19 17:48 Freq: Status: Active Protocol: Document 04/25/19 14:30 DCW (Rec: 04/26/19 09:34 DCW [id number]) Functional Tests Apley's Scratch Test Action 1- Left Lateral opposite shoulder Action 1- Right Lateral opposite shoulder Action 2- Left T2 Action 2- Right C6 Action 3- Left T7 Action 3- Right T12 PT-OP-F Manual Assessment Start: 04/25/19 17:48 Freq: Status: Active Protocol: Document 04/25/19 14:30 DCW (Rec: 04/26/19 09:29 DCW [id number]) Manual Assessments Soft Tissue Assessment Soft Tissue Mobility Assessment Tenderness to palpation: 3/4 - Wincing and withdraw along right supraspinatus and infraspinatus Joint Mobility Assessment Joint Mobility Assessment Tenderness to palpation: 2/4 - Pain with wincing along subacromial space PT-OP-K Range of Motion Start: 04/25/19 17:48 Freq: Status: Active Protocol: Document 04/25/19 14:30 DCW (Rec: 04/25/19 18:00 DCW [id number]) Shoulder Goniometric Range of Motion Shoulder Right Active Testing Position Sitting Flexion 140 Extension 108 External Rotation at 0 degrees Abduction 55 Left Active Shoulder ROM WFL Yes Testing Position Sitting Flexion 180 Abduction 180 External Rotation at 0 degrees Abduction 53 PT-OP-L Special Tests Start: 04/25/19 17:48 Freq: Status: Active Protocol: Document 04/25/19 14:30 DCW (Rec: 04/26/19 09:29 DCW [id number]) Special Tests Shoulder Special Tests Passive ER Rotator Cuff Test Results Mild R pain Drop Arm Rotator Cuff Test Results Negative Carvalho Bharath Impingement Test Results Positive Right Painful Arc Test Results Positive Right Lift-Off Rotator Cuff Test Results Negative Belly Press Test Results Negative PT-OP-M Strength Start: 04/25/19 17:48 Freq: Status: Active Protocol: Document 04/25/19 14:30 DCW (Rec: 04/25/19 17:59 DCW [id number]) Shoulder Strength Shoulder Manual Muscle Testing Right Flexion 4 Good Abduction (C5) 4 Good External Rotation 4+ Good+ Internal Rotation 4+ Good+ Left Flexion 4+ Good+ Abduction (C5) 4+ Good+ External Rotation 4+ Good+ Internal Rotation 4+ Good+ PT-OP-Q Treatments Start: 04/25/19 17:48 Freq: Status: Active Protocol: Document 05/12/19 14:30 DCW (Rec: 05/12/19 15:11 DCW [id number]) Cardio Equipment Upper Body Ergometer (UBE) Duration (Minutes) 6 RPM 60 Seat Position 12 Height 3 Therapeutic Exercises Supine Exercises 3 Supine Exercise Name Shoulder AROM /c wand Side bilateral 2 Supine Exercise Name Horizontal Adduction Side bilateral Resistance 2# 1 Supine Exercise Name Serratus Punch Side bilateral Resistance 2# Sitting Exercises Pulleys Sitting Exercise Name Shoulder Flexion, Abduction Side bilateral Equipment Used Pulleys Manual Therapy Treatment Soft Tissue Mobilization Rhomboids Body Location R Rhomboids Mobilization Type Strumming,Sustained Pressure Supraspinatus Body Location R Supraspinatus Mobilization Type Strumming,Sustained Pressure Joint Mobilizations Glenohumeral Joint R GH Direction Inferior Grade III Body Position Hooklying Scapulothoracic Joint Scapulothoracic Direction Lateral Grade III Body Position Hooklying PT-OP-T Assessment and Plan Start: 04/25/19 17:48 Freq: Status: Active Protocol: Document 05/12/19 14:30 DCW (Rec: 05/12/19 15:11 DCW [id number]) Physical Therapy Assessment Impairments Impairments Functional Mobility,Pain,ROM, Soft Tissue Mobility Goals 3 Impairment Pt shoulder pain limits sleep Assisted Goal (LTG) Pt to sleep on right side uninturrupted for 6 hours. LTG Duration 07/19/19 2 Impairment Pt has limited ROM which creates functional mobility limitations Short Term Goal (STG) Pt to don jacket with no increased shoulder pain STG Duration 06/07/19 Assisted Goal (LTG) Pt to reach overhead and turn off her closet light without increased shoulder pain. LTG Duration 07/19/19 1 Impairment Pt does not have an appropriate home exercise program Short Term Goal (STG) Pt to be independent and compliant with an appropriate HEP STG Duration 05/27/19 Assessment Summary Assessment Pt making progress, showing general improvement with pain control and mobility. Did avoid majority of standing activity due to pt not feeling well today. Physical Therapy Plan Frequency and Duration Frequency of Treatment 2x/Week Duration of Treatment 12 weeks Plan of Care Start Date 04/25/19 Plan of Care End Date 07/19/19 Therapeutic Interventions Therapeutic Interventions Home Exercise Program,Joint Mobilizations,Manual Therapy, Patient/Caregiver Education, Self-Care/Home Management,Soft Tissue Mobilization, Therapeutic Exercises Modalities Cold Pack/Ice Massage,Electric Stimulation,Hot Packs, Ultrasound Next Visit Focus/Plan Next Note Type Treatment Note Next Visit Plan STM, Shoulder ROM, Strengthening
--- NOTE | 2019-05-16 13:00 | PT.OTN ---
Current Diagnoses Stiffness of right shoulder, not elsewhere classified (05/16/19) Other injury of muscle(s) and tendon(s) of the rotator cuff of right shoulder, subsequent encounter (05/16/19) History of falling (05/16/19) Physical Therapy Treatment Note PT-OP-A Visit Information Start: 04/25/19 17:48 Freq: Status: Active Protocol: Document 05/16/19 12:18 SP (Rec: 05/16/19 13:10 SP [id number]) Out-Patient Physical Therapy Visit Information Visit Information Visit Type Treatment Note Visit Start Time 12:18 Visit Stop Time 13:00 Total Visit Minutes 42 Visit Number 5 Number of BACK ROLL LATHE OPERATOR Visits 1 PT-OP-B Current Condition Start: 04/25/19 17:48 Freq: Status: Active Protocol: Document 04/25/19 14:30 DCW (Rec: 04/26/19 12:26 DCW [id number]) Current Condition History of Current Condition Onset Date 2-3 months Current Complaints R shoulder pain History of Current Condition Pt is a 78 year old female presenting with a 2-3 month history of right shoulder pain . Pt notes it comes and goes, and most of the time really isn't all that bad, but has occasional very very bad pain with certain movements. Pt has difficulty with reaching overhead to turn off a light, or reaching back to don her jacket. Pt admits to some recent falls, the most recent one on , which was me making a bad decision to walk on very clean, shiny floors while wearing socks. Pt thinks one of her falls may have been the cause of her shoulder pain, but she isn't really sure. Prior Treatments and Tests Shoulder x-ray: IMPRESSION: Degenerative change. No acute fracture dislocation or suspicious bony lesion. Per: Dequan Hickey M.D. on 02/20/2019 PT-OP-C Subjective Start: 04/25/19 17:48 Freq: Status: Active Protocol: Document 05/16/19 12:18 SP (Rec: 05/16/19 13:10 SP [id number]) OP-PT Subjective Patient Comments Patient Comments Pt stated her LB has been hurting more today, but hasn't stopped her from playing pool . PT-OP-E Functional Tests Start: 04/25/19 17:48 Freq: Status: Active Protocol: Document 04/25/19 14:30 DCW (Rec: 04/26/19 09:34 DCW [id number]) Functional Tests Apley's Scratch Test Action 1- Left Lateral opposite shoulder Action 1- Right Lateral opposite shoulder Action 2- Left T2 Action 2- Right C6 Action 3- Left T7 Action 3- Right T12 PT-OP-F Manual Assessment Start: 04/25/19 17:48 Freq: Status: Active Protocol: Document 04/25/19 14:30 DCW (Rec: 04/26/19 09:29 DCW [id number]) Manual Assessments Soft Tissue Assessment Soft Tissue Mobility Assessment Tenderness to palpation: 3/4 - Wincing and withdraw along right supraspinatus and infraspinatus Joint Mobility Assessment Joint Mobility Assessment Tenderness to palpation: 2/4 - Pain with wincing along subacromial space PT-OP-K Range of Motion Start: 04/25/19 17:48 Freq: Status: Active Protocol: Document 04/25/19 14:30 DCW (Rec: 04/25/19 18:00 DCW [id number]) Shoulder Goniometric Range of Motion Shoulder Right Active Testing Position Sitting Flexion 140 Extension 108 External Rotation at 0 degrees Abduction 55 Left Active Shoulder ROM WFL Yes Testing Position Sitting Flexion 180 Abduction 180 External Rotation at 0 degrees Abduction 53 PT-OP-L Special Tests Start: 04/25/19 17:48 Freq: Status: Active Protocol: Document 04/25/19 14:30 DCW (Rec: 04/26/19 09:29 DCW [id number]) Special Tests Shoulder Special Tests Passive ER Rotator Cuff Test Results Mild R pain Drop Arm Rotator Cuff Test Results Negative Carvlaho Bharath Impingement Test Results Positive Right Painful Arc Test Results Positive Right Lift-Off Rotator Cuff Test Results Negative Belly Press Test Results Negative PT-OP-M Strength Start: 04/25/19 17:48 Freq: Status: Active Protocol: Document 04/25/19 14:30 DCW (Rec: 04/25/19 17:59 DCW [id number]) Shoulder Strength Shoulder Manual Muscle Testing Right Flexion 4 Good Abduction (C5) 4 Good External Rotation 4+ Good+ Internal Rotation 4+ Good+ Left Flexion 4+ Good+ Abduction (C5) 4+ Good+ External Rotation 4+ Good+ Internal Rotation 4+ Good+ PT-OP-Q Treatments Start: 04/25/19 17:48 Freq: Status: Active Protocol: Document 05/16/19 12:18 SP (Rec: 05/16/19 13:10 SP [id number]) Cardio Equipment Upper Body Ergometer (UBE) Duration (Minutes) 6 RPM 60 Seat Position 12 Height 3 Therapeutic Exercises Supine Exercises R shld PROM Supine Exercise Name FF, ABD, ER Reps/Minutes several each direction Bilateral HABD Side bilateral Resistance TB #1 Reps/Minutes x10 Comments cued scap retract/depress 2 Supine Exercise Name Horizontal Adduction Side right Resistance 2# x5, #1 x10 Comments cued for scap depression/ retraction Sitting Exercises Pulleys Sitting Exercise Name Shoulder Flexion, Abduction Side bilateral Equipment Used Pulleys Standing Exercises Extension Standing Exercise Name Extension Side bilateral Resistance Lv 2 Equipment Used T-band ER/IR Standing Exercise Name Shoulder ER/IR Side right Resistance Lv 2 Equipment Used T-band Pendulums Standing Exercise Name Pendulums Side right Comments F/B/R and L scapular retraction/rows Standing Exercise Name Rows Side bilateral Resistance Lv 2 Equipment Used T-band Reps/Minutes x10 Manual Therapy Treatment Joint Mobilizations Glenohumeral Joint R GH Direction Inferior Grade III Body Position Hooklying PT-OP-T Assessment and Plan Start: 04/25/19 17:48 Freq: Status: Active Protocol: Document 05/16/19 12:18 SP (Rec: 05/16/19 13:10 SP [id number]) Physical Therapy Assessment Goals 3 Impairment Pt shoulder pain limits sleep Correction Goal (LTG) Pt to sleep on right side uninturrupted for 6 hours. LTG Duration 07/19/19 2 Impairment Pt has limited ROM which creates functional mobility limitations Short Term Goal (STG) Pt to don jacket with no increased shoulder pain STG Duration 06/07/19 Correction Goal (LTG) Pt to reach overhead and turn off her closet light without increased shoulder pain. LTG Duration 07/19/19 1 Impairment Pt does not have an appropriate home exercise program Short Term Goal (STG) Pt to be independent and compliant with an appropriate HEP STG Duration 05/27/19 Assessment Summary Assessment Tx focused on HEP standing ex required cuing for scap retract/depression stabilization and elbow 90* during IR/ER proper form with slow control with improvement in self postural corrections, no pain reported when asked. Physical Therapy Plan Frequency and Duration Frequency of Treatment 2x/Week Duration of Treatment 12 weeks Plan of Care Start Date 04/25/19 Plan of Care End Date 07/19/19 Therapeutic Interventions Therapeutic Interventions Home Exercise Program,Joint Mobilizations,Manual Therapy, Patient/Caregiver Education, Self-Care/Home Management,Soft Tissue Mobilization, Therapeutic Exercises Modalities Cold Pack/Ice Massage,Electric Stimulation,Hot Packs, Ultrasound Next Visit Focus/Plan Next Note Type Treatment Note Next Visit Plan STM, Shoulder ROM, Strengthening
--- NOTE | 2019-05-19 15:14 | PT.OTN ---
Current Diagnoses Stiffness of right shoulder, not elsewhere classified (05/19/19) Other injury of muscle(s) and tendon(s) of the rotator cuff of right shoulder, subsequent encounter (05/19/19) History of falling (05/19/19) Physical Therapy Treatment Note PT-OP-A Visit Information Start: 04/25/19 17:48 Freq: Status: Active Protocol: Document 05/19/19 14:30 DCW (Rec: 05/19/19 15:14 DCW [id number]) Out-Patient Physical Therapy Visit Information Visit Information Visit Type Treatment Note Visit Start Time 14:30 Visit Stop Time 15:15 Total Visit Minutes 45 Visit Number 6 Number of PHYSICIAN EXECUTIVE Visits 0 Evaluation Information Evaluation Date 04/25/19 PT-OP-B Current Condition Start: 04/25/19 17:48 Freq: Status: Active Protocol: Document 04/25/19 14:30 DCW (Rec: 04/26/19 12:26 DCW [id number]) Current Condition History of Current Condition Onset Date 2-3 months Current Complaints R shoulder pain History of Current Condition Pt is a 78 year old female presenting with a 2-3 month history of right shoulder pain . Pt notes it comes and goes, and most of the time really isn't all that bad, but has occasional very very bad pain with certain movements. Pt has difficulty with reaching overhead to turn off a light, or reaching back to don her jacket. Pt admits to some recent falls, the most recent one on , which was me making a bad decision to walk on very clean, shiny floors while wearing socks. Pt thinks one of her falls may have been the cause of her shoulder pain, but she isn't really sure. Prior Treatments and Tests Shoulder x-ray: IMPRESSION: Degenerative change. No acute fracture dislocation or suspicious bony lesion. Per: Dequan Hickey M.D. on 02/20/2019 PT-OP-C Subjective Start: 04/25/19 17:48 Freq: Status: Active Protocol: Document 05/19/19 14:30 DCW (Rec: 05/19/19 15:14 DCW [id number]) OP-PT Subjective Patient Comments Patient Comments Pt reports that overall she is doing well, but feels like she needs to strengthen her legs, and I haven't been doing a good job with that on my own. Admits she had to grab onto a stranger yesterday to prevent herself from falling. PT-OP-E Functional Tests Start: 04/25/19 17:48 Freq: Status: Active Protocol: Document 04/25/19 14:30 DCW (Rec: 04/26/19 09:34 DCW [id number]) Functional Tests Apley's Scratch Test Action 1- Left Lateral opposite shoulder Action 1- Right Lateral opposite shoulder Action 2- Left T2 Action 2- Right C6 Action 3- Left T7 Action 3- Right T12 PT-OP-F Manual Assessment Start: 04/25/19 17:48 Freq: Status: Active Protocol: Document 04/25/19 14:30 DCW (Rec: 04/26/19 09:29 DCW [id number]) Manual Assessments Soft Tissue Assessment Soft Tissue Mobility Assessment Tenderness to palpation: 3/4 - Wincing and withdraw along right supraspinatus and infraspinatus Joint Mobility Assessment Joint Mobility Assessment Tenderness to palpation: 2/4 - Pain with wincing along subacromial space PT-OP-K Range of Motion Start: 04/25/19 17:48 Freq: Status: Active Protocol: Document 04/25/19 14:30 DCW (Rec: 04/25/19 18:00 DCW [id number]) Shoulder Goniometric Range of Motion Shoulder Right Active Testing Position Sitting Flexion 140 Extension 108 External Rotation at 0 degrees Abduction 55 Left Active Shoulder ROM WFL Yes Testing Position Sitting Flexion 180 Abduction 180 External Rotation at 0 degrees Abduction 53 PT-OP-L Special Tests Start: 04/25/19 17:48 Freq: Status: Active Protocol: Document 04/25/19 14:30 DCW (Rec: 04/26/19 09:29 DCW [id number]) Special Tests Shoulder Special Tests Passive ER Rotator Cuff Test Results Mild R pain Drop Arm Rotator Cuff Test Results Negative Carvalho Bharath Impingement Test Results Positive Right Painful Arc Test Results Positive Right Lift-Off Rotator Cuff Test Results Negative Belly Press Test Results Negative PT-OP-M Strength Start: 04/25/19 17:48 Freq: Status: Active Protocol: Document 04/25/19 14:30 DCW (Rec: 04/25/19 17:59 DCW [id number]) Shoulder Strength Shoulder Manual Muscle Testing Right Flexion 4 Good Abduction (C5) 4 Good External Rotation 4+ Good+ Internal Rotation 4+ Good+ Left Flexion 4+ Good+ Abduction (C5) 4+ Good+ External Rotation 4+ Good+ Internal Rotation 4+ Good+ PT-OP-Q Treatments Start: 04/25/19 17:48 Freq: Status: Active Protocol: Document 05/19/19 14:30 DCW (Rec: 05/19/19 15:14 DCW [id number]) Cardio Equipment Upper Body Ergometer (UBE) Duration (Minutes) 6 RPM 60 Seat Position 12 Height 3.5 Therapeutic Exercises Supine Exercises 3 Supine Exercise Name Shoulder AROM /c wand Side bilateral 2 Supine Exercise Name Horizontal Adduction Side bilateral Resistance 2# 1 Supine Exercise Name Serratus Punch Side bilateral Resistance 2# Sitting Exercises Pulleys Sitting Exercise Name Shoulder Flexion, Abduction Side bilateral Equipment Used Pulleys Standing Exercises Extension Standing Exercise Name Extension Side bilateral Resistance Lv 2 Equipment Used T-band scapular retraction/rows Standing Exercise Name Rows Side bilateral Resistance Lv 2 Equipment Used T-band Reps/Minutes x10 Manual Therapy Treatment Soft Tissue Mobilization Rhomboids Body Location R Rhomboids Mobilization Type Strumming,Sustained Pressure Supraspinatus Body Location R Supraspinatus Mobilization Type Strumming,Sustained Pressure Joint Mobilizations Glenohumeral Joint R GH Direction Inferior Grade III Body Position Hooklying Scapulothoracic Joint Scapulothoracic Direction Lateral Grade III Body Position Hooklying PT-OP-T Assessment and Plan Start: 04/25/19 17:48 Freq: Status: Active Protocol: Document 05/19/19 14:30 DCW (Rec: 05/19/19 15:14 DCW [id number]) Physical Therapy Assessment Impairments Impairments Functional Mobility,Pain,ROM, Soft Tissue Mobility Goals 3 Impairment Pt shoulder pain limits sleep Alf Goal (LTG) Pt to sleep on right side uninturrupted for 6 hours. LTG Duration 07/19/19 2 Impairment Pt has limited ROM which creates functional mobility limitations Short Term Goal (STG) Pt to don jacket with no increased shoulder pain STG Duration 06/07/19 Alf Goal (LTG) Pt to reach overhead and turn off her closet light without increased shoulder pain. LTG Duration 07/19/19 1 Impairment Pt does not have an appropriate home exercise program Short Term Goal (STG) Pt to be independent and compliant with an appropriate HEP STG Duration 05/27/19 Assessment Summary Assessment Pt continuing to show progress in her functional mobility of her right shoulder. Pt was noticeably more unsteady today , requiring hand-hold assist to ambulate around the gym after leaving her walking stick at the locker. Physical Therapy Plan Frequency and Duration Frequency of Treatment 2x/Week Duration of Treatment 12 weeks Plan of Care Start Date 04/25/19 Plan of Care End Date 07/19/19 Therapeutic Interventions Therapeutic Interventions Home Exercise Program,Joint Mobilizations,Manual Therapy, Patient/Caregiver Education, Self-Care/Home Management,Soft Tissue Mobilization, Therapeutic Exercises Modalities Cold Pack/Ice Massage,Electric Stimulation,Hot Packs, Ultrasound Next Visit Focus/Plan Next Note Type Treatment Note Next Visit Plan STM, Shoulder ROM, Strengthening
--- NOTE | 2019-05-26 16:17 | PT.OTN ---
Current Diagnoses Stiffness of right shoulder, not elsewhere classified (05/26/19) Other injury of muscle(s) and tendon(s) of the rotator cuff of right shoulder, subsequent encounter (05/26/19) History of falling (05/26/19) Physical Therapy Treatment Note PT-OP-A Visit Information Start: 04/25/19 17:48 Freq: Status: Active Protocol: Document 05/26/19 14:38 HH (Rec: 05/26/19 16:17 [id number]) Out-Patient Physical Therapy Visit Information Visit Information Visit Type Treatment Note Visit Note Pt presetns with SPC Visit Start Time 14:32 Visit Stop Time 15:15 Total Visit Minutes 43 Visit Number 7 Number of STATISTICAL ANALYST Visits 0 PT-OP-B Current Condition Start: 04/25/19 17:48 Freq: Status: Active Protocol: Document 04/25/19 14:30 DCW (Rec: 04/26/19 12:26 DCW [id number]) Current Condition History of Current Condition Onset Date 2-3 months Current Complaints R shoulder pain History of Current Condition Pt is a 78 year old female presenting with a 2-3 month history of right shoulder pain . Pt notes it comes and goes, and most of the time really isn't all that bad, but has occasional very very bad pain with certain movements. Pt has difficulty with reaching overhead to turn off a light, or reaching back to don her jacket. Pt admits to some recent falls, the most recent one on , which was me making a bad decision to walk on very clean, shiny floors while wearing socks. Pt thinks one of her falls may have been the cause of her shoulder pain, but she isn't really sure. Prior Treatments and Tests Shoulder x-ray: IMPRESSION: Degenerative change. No acute fracture dislocation or suspicious bony lesion. Per: Dequan Hickey M.D. on 02/20/2019 PT-OP-C Subjective Start: 04/25/19 17:48 Freq: Status: Active Protocol: Document 05/26/19 14:38 HH (Rec: 05/26/19 16:17 [id number]) OP-PT Subjective Patient Comments Patient Comments My shoulder has been doing really good and my balance for today as well. But i have this new pain from my front of R neck. Patient Reported Progress Improving PT-OP-E Functional Tests Start: 04/25/19 17:48 Freq: Status: Active Protocol: Document 04/25/19 14:30 DCW (Rec: 04/26/19 09:34 DCW [id number]) Functional Tests Apley's Scratch Test Action 1- Left Lateral opposite shoulder Action 1- Right Lateral opposite shoulder Action 2- Left T2 Action 2- Right C6 Action 3- Left T7 Action 3- Right T12 PT-OP-F Manual Assessment Start: 04/25/19 17:48 Freq: Status: Active Protocol: Document 04/25/19 14:30 DCW (Rec: 04/26/19 09:29 DCW [id number]) Manual Assessments Soft Tissue Assessment Soft Tissue Mobility Assessment Tenderness to palpation: 3/4 - Wincing and withdraw along right supraspinatus and infraspinatus Joint Mobility Assessment Joint Mobility Assessment Tenderness to palpation: 2/4 - Pain with wincing along subacromial space PT-OP-K Range of Motion Start: 04/25/19 17:48 Freq: Status: Active Protocol: Document 04/25/19 14:30 DCW (Rec: 04/25/19 18:00 DCW [id number]) Shoulder Goniometric Range of Motion Shoulder Right Active Testing Position Sitting Flexion 140 Extension 108 External Rotation at 0 degrees Abduction 55 Left Active Shoulder ROM WFL Yes Testing Position Sitting Flexion 180 Abduction 180 External Rotation at 0 degrees Abduction 53 PT-OP-L Special Tests Start: 04/25/19 17:48 Freq: Status: Active Protocol: Document 04/25/19 14:30 DCW (Rec: 04/26/19 09:29 DCW [id number]) Special Tests Shoulder Special Tests Passive ER Rotator Cuff Test Results Mild R pain Drop Arm Rotator Cuff Test Results Negative Carvalho Bharath Impingement Test Results Positive Right Painful Arc Test Results Positive Right Lift-Off Rotator Cuff Test Results Negative Belly Press Test Results Negative PT-OP-M Strength Start: 04/25/19 17:48 Freq: Status: Active Protocol: Document 04/25/19 14:30 DCW (Rec: 04/25/19 17:59 DCW [id number]) Shoulder Strength Shoulder Manual Muscle Testing Right Flexion 4 Good Abduction (C5) 4 Good External Rotation 4+ Good+ Internal Rotation 4+ Good+ Left Flexion 4+ Good+ Abduction (C5) 4+ Good+ External Rotation 4+ Good+ Internal Rotation 4+ Good+ PT-OP-Q Treatments Start: 04/25/19 17:48 Freq: Status: Active Protocol: Document 05/26/19 14:38 (Rec: 05/26/19 16:17 [id number]) Cardio Equipment Upper Body Ergometer (UBE) Duration (Minutes) 6 RPM 60 Seat Position 12 Height 3.5 Therapeutic Exercises Supine Exercises chest press Side bilateral Equipment Used with PVC pipe 3 Supine Exercise Name Shoulder AROM /c wand Side bilateral 2 Supine Exercise Name Horizontal Adduction Side bilateral Resistance 2# 1 Supine Exercise Name Serratus Punch Side bilateral Resistance with PVC pipe Sidelying Exercises shd horizontal abd Side right Equipment Used 1lb Reps/Minutes 10 x2 shd ER Side right Equipment Used 1-2lbs Reps/Minutes 10 x2 Sitting Exercises Pulleys Sitting Exercise Name Shoulder Flexion, Abduction Side bilateral Equipment Used Pulleys Manual Therapy Treatment Soft Tissue Mobilization Supraspinatus Body Location R Supraspinatus Mobilization Type Strumming,Sustained Pressure PT-OP-T Assessment and Plan Start: 04/25/19 17:48 Freq: Status: Active Protocol: Document 05/26/19 14:38 (Rec: 05/26/19 16:17 [id number]) Physical Therapy Assessment Goals 3 Impairment Pt shoulder pain limits sleep Group Home Goal (LTG) Pt to sleep on right side uninturrupted for 6 hours. LTG Duration 07/19/19 2 Impairment Pt has limited ROM which creates functional mobility limitations Short Term Goal (STG) Pt to don jacket with no increased shoulder pain STG Duration 06/07/19 Trim Carpenter Goal (LTG) Pt to reach overhead and turn off her closet light without increased shoulder pain. LTG Duration 07/19/19 1 Impairment Pt does not have an appropriate home exercise program Short Term Goal (STG) Pt to be independent and compliant with an appropriate HEP STG Duration 05/27/19 Assessment Summary Assessment Pt cont to improve with pain free ROM but still has discomfort at end range of flexion and abd. Added sidelying resisted shd ex for ER, ABD and horizontal abd. Pt [place] tx very well Physical Therapy Plan Next Visit Focus/Plan Next Note Type Treatment Note Next Visit Plan STM, Shoulder ROM, Strengthening
--- NOTE | 2019-05-29 16:55 | PT.OTN ---
Current Diagnoses Stiffness of right shoulder, not elsewhere classified (05/29/19) Other injury of muscle(s) and tendon(s) of the rotator cuff of right shoulder, subsequent encounter (05/29/19) History of falling (05/29/19) Physical Therapy Treatment Note PT-OP-A Visit Information Start: 04/25/19 17:48 Freq: Status: Active Protocol: Document 05/29/19 13:36 LRN (Rec: 05/29/19 14:18 LRN [id number]) Out-Patient Physical Therapy Visit Information Visit Information Visit Type Treatment Note Visit Start Time 13:36 Visit Stop Time 14:17 Total Visit Minutes 41 Visit Number 8 Number of CUSTOMER SUCCESS SPECIALIST Visits 0 PT-OP-B Current Condition Start: 04/25/19 17:48 Freq: Status: Active Protocol: Document 04/25/19 14:30 DCW (Rec: 04/26/19 12:26 DCW [id number]) Current Condition History of Current Condition Onset Date 2-3 months Current Complaints R shoulder pain History of Current Condition Pt is a 78 year old female presenting with a 2-3 month history of right shoulder pain . Pt notes it comes and goes, and most of the time really isn't all that bad, but has occasional very very bad pain with certain movements. Pt has difficulty with reaching overhead to turn off a light, or reaching back to don her jacket. Pt admits to some recent falls, the most recent one on , which was me making a bad decision to walk on very clean, shiny floors while wearing socks. Pt thinks one of her falls may have been the cause of her shoulder pain, but she isn't really sure. Prior Treatments and Tests Shoulder x-ray: IMPRESSION: Degenerative change. No acute fracture dislocation or suspicious bony lesion. Per: Dequan Hickey M.D. on 02/20/2019 PT-OP-C Subjective Start: 04/25/19 17:48 Freq: Status: Active Protocol: Document 05/29/19 13:36 LRN (Rec: 05/29/19 14:18 LRN [id number]) OP-PT Subjective Patient Comments Patient Comments R shoulder is a lot better. Can now lie on R side with hand under pillow. PT-OP-E Functional Tests Start: 04/25/19 17:48 Freq: Status: Active Protocol: Document 04/25/19 14:30 DCW (Rec: 04/26/19 09:34 DCW [id number]) Functional Tests Apley's Scratch Test Action 1- Left Lateral opposite shoulder Action 1- Right Lateral opposite shoulder Action 2- Left T2 Action 2- Right C6 Action 3- Left T7 Action 3- Right T12 PT-OP-F Manual Assessment Start: 04/25/19 17:48 Freq: Status: Active Protocol: Document 04/25/19 14:30 DCW (Rec: 04/26/19 09:29 DCW [id number]) Manual Assessments Soft Tissue Assessment Soft Tissue Mobility Assessment Tenderness to palpation: 3/4 - Wincing and withdraw along right supraspinatus and infraspinatus Joint Mobility Assessment Joint Mobility Assessment Tenderness to palpation: 2/4 - Pain with wincing along subacromial space PT-OP-K Range of Motion Start: 04/25/19 17:48 Freq: Status: Active Protocol: Document 04/25/19 14:30 DCW (Rec: 04/25/19 18:00 DCW [id number]) Shoulder Goniometric Range of Motion Shoulder Right Active Testing Position Sitting Flexion 140 Extension 108 External Rotation at 0 degrees Abduction 55 Left Active Shoulder ROM WFL Yes Testing Position Sitting Flexion 180 Abduction 180 External Rotation at 0 degrees Abduction 53 PT-OP-L Special Tests Start: 04/25/19 17:48 Freq: Status: Active Protocol: Document 04/25/19 14:30 DCW (Rec: 04/26/19 09:29 DCW [id number]) Special Tests Shoulder Special Tests Passive ER Rotator Cuff Test Results Mild R pain Drop Arm Rotator Cuff Test Results Negative Carvalho Bharath Impingement Test Results Positive Right Painful Arc Test Results Positive Right Lift-Off Rotator Cuff Test Results Negative Belly Press Test Results Negative PT-OP-M Strength Start: 04/25/19 17:48 Freq: Status: Active Protocol: Document 04/25/19 14:30 DCW (Rec: 04/25/19 17:59 DCW [id number]) Shoulder Strength Shoulder Manual Muscle Testing Right Flexion 4 Good Abduction (C5) 4 Good External Rotation 4+ Good+ Internal Rotation 4+ Good+ Left Flexion 4+ Good+ Abduction (C5) 4+ Good+ External Rotation 4+ Good+ Internal Rotation 4+ Good+ PT-OP-Q Treatments Start: 04/25/19 17:48 Freq: Status: Active Protocol: Document 05/29/19 13:36 LRN (Rec: 05/29/19 14:18 LRN [id number]) Cardio Equipment Upper Body Ergometer (UBE) Duration (Minutes) 7 RPM 60 Seat Position 12 Height 3.5 Other fwd/bkwd Therapeutic Exercises Supine Exercises Lat Pull Down Supine Exercise Name Lat Pull Down Reps/Minutes 15x chest press Supine Exercise Name Chest Press Side bilateral Equipment Used with PVC pipe Reps/Minutes 15 x 2 3 Supine Exercise Name Shoulder AROM /c wand Side bilateral 2 Supine Exercise Name Horizontal Adduction Side bilateral Resistance 2# 1 Supine Exercise Name Serratus Punch Side bilateral Resistance 2#, with PVC pipe Reps/Minutes 15x 2 Sidelying Exercises shd horizontal abd Side right Equipment Used 1lb Reps/Minutes 10 x2 shd ER Side right Equipment Used 2lbs, 1# Reps/Minutes 10 x each Manual Therapy Treatment Soft Tissue Mobilization Deltoid Body Location R Deltoid Mobilization Type Strumming Rhomboids Body Location R Rhomboids Mobilization Type Strumming,Sustained Pressure PT-OP-T Assessment and Plan Start: 04/25/19 17:48 Freq: Status: Active Protocol: Document 05/29/19 13:36 LRN (Rec: 05/29/19 14:18 LRN [id number]) Physical Therapy Assessment Goals 3 Impairment Pt shoulder pain limits sleep Correction Goal (LTG) Pt to sleep on right side uninturrupted for 6 hours. LTG Duration 07/19/19 2 Impairment Pt has limited ROM which creates functional mobility limitations Short Term Goal (STG) Pt to don jacket with no increased shoulder pain STG Duration 06/07/19 Cabin Worker Goal (LTG) Pt to reach overhead and turn off her closet light without increased shoulder pain. LTG Duration 07/19/19 1 Impairment Pt does not have an appropriate home exercise program Short Term Goal (STG) Pt to be independent and compliant with an appropriate HEP STG Duration 05/27/19 Assessment Summary Assessment Pt improving with less pain and improved function. No pain at Supraspinatus; therefore deferred STM. She is now able to lie on her R side with pillow under her hand. Physical Therapy Plan Frequency and Duration Frequency of Treatment 2x/Week Duration of Treatment 12 weeks Plan of Care Start Date 04/25/19 Plan of Care End Date 07/19/19 Next Visit Focus/Plan Next Note Type Treatment Note Next Visit Plan STM, Shoulder ROM, progress strengthening
--- NOTE | 2019-06-02 14:37 | PT.OTN ---
Current Diagnoses Stiffness of right shoulder, not elsewhere classified (06/02/19) Other injury of muscle(s) and tendon(s) of the rotator cuff of right shoulder, subsequent encounter (06/02/19) History of falling (06/02/19) Physical Therapy Treatment Note PT-OP-A Visit Information Start: 04/25/19 17:48 Freq: Status: Active Protocol: Document 06/02/19 13:03 HH (Rec: 06/02/19 14:36 [id number]) Out-Patient Physical Therapy Visit Information Visit Information Visit Type Treatment Note Visit Note Pt requested to leave 5 mins early due to her [employer] party. Visit Start Time 13:03 Visit Stop Time 13:40 Total Visit Minutes 37 Visit Number 9 Number of PROFESSOR OF PHYSICS Visits 0 PT-OP-B Current Condition Start: 04/25/19 17:48 Freq: Status: Active Protocol: Document 04/25/19 14:30 DCW (Rec: 04/26/19 12:26 DCW [id number]) Current Condition History of Current Condition Onset Date 2-3 months Current Complaints R shoulder pain History of Current Condition Pt is a 78 year old female presenting with a 2-3 month history of right shoulder pain . Pt notes it comes and goes, and most of the time really isn't all that bad, but has occasional very very bad pain with certain movements. Pt has difficulty with reaching overhead to turn off a light, or reaching back to don her jacket. Pt admits to some recent falls, the most recent one on , which was me making a bad decision to walk on very clean, shiny floors while wearing socks. Pt thinks one of her falls may have been the cause of her shoulder pain, but she isn't really sure. Prior Treatments and Tests Shoulder x-ray: IMPRESSION: Degenerative change. No acute fracture dislocation or suspicious bony lesion. Per: Dequan Hickey M.D. on 02/20/2019 PT-OP-C Subjective Start: 04/25/19 17:48 Freq: Status: Active Protocol: Document 06/02/19 13:03 HH (Rec: 06/02/19 14:36 [id number]) OP-PT Subjective Patient Comments Patient Comments My shoulder is doing good and it doesnt hurt. Its like 90% better. However, my back is bothering me lately. Patient Reported Progress Improving PT-OP-E Functional Tests Start: 04/25/19 17:48 Freq: Status: Active Protocol: Document 04/25/19 14:30 DCW (Rec: 04/26/19 09:34 DCW [id number]) Functional Tests Apley's Scratch Test Action 1- Left Lateral opposite shoulder Action 1- Right Lateral opposite shoulder Action 2- Left T2 Action 2- Right C6 Action 3- Left T7 Action 3- Right T12 PT-OP-F Manual Assessment Start: 04/25/19 17:48 Freq: Status: Active Protocol: Document 04/25/19 14:30 DCW (Rec: 04/26/19 09:29 DCW [id number]) Manual Assessments Soft Tissue Assessment Soft Tissue Mobility Assessment Tenderness to palpation: 3/4 - Wincing and withdraw along right supraspinatus and infraspinatus Joint Mobility Assessment Joint Mobility Assessment Tenderness to palpation: 2/4 - Pain with wincing along subacromial space PT-OP-K Range of Motion Start: 04/25/19 17:48 Freq: Status: Active Protocol: Document 04/25/19 14:30 DCW (Rec: 04/25/19 18:00 DCW [id number]) Shoulder Goniometric Range of Motion Shoulder Right Active Testing Position Sitting Flexion 140 Extension 108 External Rotation at 0 degrees Abduction 55 Left Active Shoulder ROM WFL Yes Testing Position Sitting Flexion 180 Abduction 180 External Rotation at 0 degrees Abduction 53 PT-OP-L Special Tests Start: 04/25/19 17:48 Freq: Status: Active Protocol: Document 04/25/19 14:30 DCW (Rec: 04/26/19 09:29 DCW [id number]) Special Tests Shoulder Special Tests Passive ER Rotator Cuff Test Results Mild R pain Drop Arm Rotator Cuff Test Results Negative Carvalho Bharath Impingement Test Results Positive Right Painful Arc Test Results Positive Right Lift-Off Rotator Cuff Test Results Negative Belly Press Test Results Negative PT-OP-M Strength Start: 04/25/19 17:48 Freq: Status: Active Protocol: Document 04/25/19 14:30 DCW (Rec: 04/25/19 17:59 DCW [id number]) Shoulder Strength Shoulder Manual Muscle Testing Right Flexion 4 Good Abduction (C5) 4 Good External Rotation 4+ Good+ Internal Rotation 4+ Good+ Left Flexion 4+ Good+ Abduction (C5) 4+ Good+ External Rotation 4+ Good+ Internal Rotation 4+ Good+ PT-OP-Q Treatments Start: 04/25/19 17:48 Freq: Status: Active Protocol: Document 06/02/19 13:03 (Rec: 06/02/19 14:36 [id number]) Cardio Equipment Upper Body Ergometer (UBE) Duration (Minutes) 7 RPM 60 Seat Position 12 Height 3.5 Other fwd/bkwd Therapeutic Exercises Supine Exercises chest press Supine Exercise Name Chest Press Side bilateral Equipment Used with PVC pipe Reps/Minutes 15 x 2 Sidelying Exercises shd horizontal abd Side right Equipment Used 1lb Reps/Minutes 10 x2 shd ER Side right Equipment Used 2lbs Reps/Minutes 10 x each Sitting Exercises Pulleys Sitting Exercise Name Shoulder Flexion, Abduction Side bilateral Equipment Used Pulleys Standing Exercises shd flexion /abd Standing Exercise Name staggered stance Resistance 1# ankle weight at wrists Reps/Minutes 30 sec x 6 shoulder press Side bilateral Equipment Used PVC bar Reps/Minutes 10 x2 ball hit Standing Exercise Name balloon Side bilateral Resistance 1lb ankle weight at wrists Reps/Minutes 3 mins x 3 scapular retraction/rows Resistance level 1 Reps/Minutes 8 x2 Comments cues on scap squeeze Manual Therapy Treatment Soft Tissue Mobilization Deltoid Body Location R Deltoid Mobilization Type Strumming Rhomboids Body Location R Rhomboids Mobilization Type Strumming,Sustained Pressure PT-OP-T Assessment and Plan Start: 04/25/19 17:48 Freq: Status: Active Protocol: Document 06/02/19 13:03 (Rec: 06/02/19 14:36 [id number]) Physical Therapy Assessment Goals 3 Impairment Pt shoulder pain limits sleep Assisted Goal (LTG) Pt to sleep on right side uninturrupted for 6 hours. LTG Duration 07/19/19 2 Impairment Pt has limited ROM which creates functional mobility limitations Short Term Goal (STG) Pt to don jacket with no increased shoulder pain STG Duration 06/07/19 Assisted Goal (LTG) Pt to reach overhead and turn off her closet light without increased shoulder pain. LTG Duration 07/19/19 1 Impairment Pt does not have an appropriate home exercise program Short Term Goal (STG) Pt to be independent and compliant with an appropriate HEP STG Duration 05/27/19 Assessment Summary Assessment Pt cont to show improve shoulder strenght. She tolerates well with gravity position. Added ankle weights for shoulder abd and flexion today for ball toss. Physical Therapy Plan Next Visit Focus/Plan Next Note Type Treatment Note Next Visit Plan STM, Shoulder ROM, progress strengthening
--- NOTE | 2019-06-06 16:05 | PT.OTN ---
Current Diagnoses Stiffness of right shoulder, not elsewhere classified (06/06/19) Other injury of muscle(s) and tendon(s) of the rotator cuff of right shoulder, subsequent encounter (06/06/19) History of falling (06/06/19) Physical Therapy Treatment Note PT-OP-A Visit Information Start: 04/25/19 17:48 Freq: Status: Active Protocol: Document 06/06/19 13:51 HH (Rec: 06/06/19 16:05 [id number]) Out-Patient Physical Therapy Visit Information Visit Information Visit Type Progress Note Visit Note pt is 5 mins late Visit Start Time 13:50 Visit Stop Time 14:30 Total Visit Minutes 40 Visit Number 10 Number of METAL SPRAYER [employer]OTECTIVE COATING Visits 0 PT-OP-B Current Condition Start: 04/25/19 17:48 Freq: Status: Active Protocol: Document 04/25/19 14:30 DCW (Rec: 04/26/19 12:26 DCW [id number]) Current Condition History of Current Condition Onset Date 2-3 months Current Complaints R shoulder pain History of Current Condition Pt is a 78 year old female presenting with a 2-3 month history of right shoulder pain . Pt notes it comes and goes, and most of the time really isn't all that bad, but has occasional very very bad pain with certain movements. Pt has difficulty with reaching overhead to turn off a light, or reaching back to don her jacket. Pt admits to some recent falls, the most recent one on , which was me making a bad decision to walk on very clean, shiny floors while wearing socks. Pt thinks one of her falls may have been the cause of her shoulder pain, but she isn't really sure. Prior Treatments and Tests Shoulder x-ray: IMPRESSION: Degenerative change. No acute fracture dislocation or suspicious bony lesion. Per: Dequan Hickey M.D. on 02/20/2019 PT-OP-C Subjective Start: 04/25/19 17:48 Freq: Status: Active Protocol: Document 06/06/19 13:51 HH (Rec: 06/06/19 16:05 [id number]) OP-PT Subjective Patient Comments Patient Comments My shoulders are doing good and it didnt bother me from last visit. Patient Reported Progress Improving PT-OP-E Functional Tests Start: 04/25/19 17:48 Freq: Status: Active Protocol: Document 04/25/19 14:30 DCW (Rec: 04/26/19 09:34 DCW [id number]) Functional Tests Apley's Scratch Test Action 1- Left Lateral opposite shoulder Action 1- Right Lateral opposite shoulder Action 2- Left T2 Action 2- Right C6 Action 3- Left T7 Action 3- Right T12 PT-OP-F Manual Assessment Start: 04/25/19 17:48 Freq: Status: Active Protocol: Document 04/25/19 14:30 DCW (Rec: 04/26/19 09:29 DCW [id number]) Manual Assessments Soft Tissue Assessment Soft Tissue Mobility Assessment Tenderness to palpation: 3/4 - Wincing and withdraw along right supraspinatus and infraspinatus Joint Mobility Assessment Joint Mobility Assessment Tenderness to palpation: 2/4 - Pain with wincing along subacromial space PT-OP-K Range of Motion Start: 04/25/19 17:48 Freq: Status: Active Protocol: Document 04/25/19 14:30 DCW (Rec: 04/25/19 18:00 DCW [id number]) Shoulder Goniometric Range of Motion Shoulder Right Active Testing Position Sitting Flexion 140 Extension 108 External Rotation at 0 degrees Abduction 55 Left Active Shoulder ROM WFL Yes Testing Position Sitting Flexion 180 Abduction 180 External Rotation at 0 degrees Abduction 53 PT-OP-L Special Tests Start: 04/25/19 17:48 Freq: Status: Active Protocol: Document 04/25/19 14:30 DCW (Rec: 04/26/19 09:29 DCW [id number]) Special Tests Shoulder Special Tests Passive ER Rotator Cuff Test Results Mild R pain Drop Arm Rotator Cuff Test Results Negative Carvalho Bharath Impingement Test Results Positive Right Painful Arc Test Results Positive Right Lift-Off Rotator Cuff Test Results Negative Belly Press Test Results Negative PT-OP-M Strength Start: 04/25/19 17:48 Freq: Status: Active Protocol: Document 04/25/19 14:30 DCW (Rec: 04/25/19 17:59 DCW [id number]) Shoulder Strength Shoulder Manual Muscle Testing Right Flexion 4 Good Abduction (C5) 4 Good External Rotation 4+ Good+ Internal Rotation 4+ Good+ Left Flexion 4+ Good+ Abduction (C5) 4+ Good+ External Rotation 4+ Good+ Internal Rotation 4+ Good+ PT-OP-Q Treatments Start: 04/25/19 17:48 Freq: Status: Active Protocol: Document 06/06/19 13:51 (Rec: 06/06/19 16:05 [id number]) Therapeutic Exercises Supine Exercises shoulder flexion Side bilateral Equipment Used 2# DB Reps/Minutes 10 x2 Comments cues on eccentric control Sidelying Exercises shd horizontal abd Side right Equipment Used 2 lbs DB Reps/Minutes 10 x2 shd ER Side right Equipment Used 2lbs Reps/Minutes 10 x each Sitting Exercises Pulleys Sitting Exercise Name Shoulder Flexion, Abduction Side bilateral Equipment Used Pulleys Standing Exercises shd flexion /abd Standing Exercise Name staggered stance (next to grab bar) Resistance 2# ankle weight at wrists Reps/Minutes 30 sec x 4 Comments ball toss shoulder press Side bilateral Equipment Used PVC bar Reps/Minutes 10 x2 Extension Side bilateral Equipment Used PVC bar Reps/Minutes 10 x2 Manual Therapy Treatment Soft Tissue Mobilization Supraspinatus Mobilization Type Sustained Pressure,Trigger Point Release Intensity/Depth Moderate Body Position Sitting PT-OP-T Assessment and Plan Start: 04/25/19 17:48 Freq: Status: Active Protocol: Document 06/06/19 13:51 (Rec: 06/06/19 16:05 [id number]) Physical Therapy Assessment Goals 3 Impairment Pt shoulder pain limits sleep Elementary Substitute Teacher Goal (LTG) 06/06 goal met: Pt is able to sleep on right side uninturrupted for 6 hours . LTG Duration 07/19/19 2 Impairment Pt has limited ROM which creates functional mobility limitations Short Term Goal (STG) Pt to don jacket with no increased shoulder pain STG Duration 06/07/19 Elementary Substitute Teacher Goal (LTG) 06/06 goal met: Pt is able to reach overhead and turn off her closet light without increased shoulder pain. LTG Duration 07/19/19 1 Impairment Pt does not have an appropriate home exercise program Short Term Goal (STG) 06/06 goal met: Pt is independent and compliant with an appropriate HEP STG Duration 05/27/19 Assessment Summary Assessment Pt improving with strength and ROM without any discomfort. Currently does not c/o any significant discomfort at home with functional activities. She was able to laurel gravity position with ankle weight 2# at wrist, along with 2# DB at SL position. Will reassess pt' s ROM/ strength within 2 visits. Physical Therapy Plan Next Visit Focus/Plan Next Note Type Treatment Note Next Visit Plan STM, Shoulder ROM, progress strengthening
--- NOTE | 2019-06-08 09:57 | PT-OP ANOTE ---
Called pt via phone and pt stated she has diarrhea since last night and feels somewhat weak. Rec pt to consult PCP if it gets worse. Pt will attend next session to possibly discuss d/c planning.
--- NOTE | 2019-06-13 16:50 | PT.OTN ---
Current Diagnoses Stiffness of right shoulder, not elsewhere classified (06/13/19) Other injury of muscle(s) and tendon(s) of the rotator cuff of right shoulder, subsequent encounter (06/13/19) History of falling (06/13/19) Physical Therapy Treatment Note PT-OP-A Visit Information Start: 04/25/19 17:48 Freq: Status: Active Protocol: Document 06/13/19 16:00 DCW (Rec: 06/13/19 16:49 DCW [id number]) Out-Patient Physical Therapy Visit Information Visit Information Visit Type Treatment Note Visit Start Time 16:00 Visit Stop Time 16:45 Total Visit Minutes 45 Visit Number 11 Number of HISTORICAL ARCHEOLOGIST Visits 0 Evaluation Information Evaluation Date 04/25/19 PT-OP-B Current Condition Start: 04/25/19 17:48 Freq: Status: Active Protocol: Document 04/25/19 14:30 DCW (Rec: 04/26/19 12:26 DCW [id number]) Current Condition History of Current Condition Onset Date 2-3 months Current Complaints R shoulder pain History of Current Condition Pt is a 78 year old female presenting with a 2-3 month history of right shoulder pain . Pt notes it comes and goes, and most of the time really isn't all that bad, but has occasional very very bad pain with certain movements. Pt has difficulty with reaching overhead to turn off a light, or reaching back to don her jacket. Pt admits to some recent falls, the most recent one on , which was me making a bad decision to walk on very clean, shiny floors while wearing socks. Pt thinks one of her falls may have been the cause of her shoulder pain, but she isn't really sure. Prior Treatments and Tests Shoulder x-ray: IMPRESSION: Degenerative change. No acute fracture dislocation or suspicious bony lesion. Per: Dequan Hickey M.D. on 02/20/2019 PT-OP-C Subjective Start: 04/25/19 17:48 Freq: Status: Active Protocol: Document 06/13/19 16:00 DCW (Rec: 06/13/19 16:49 DCW [id number]) OP-PT Subjective Patient Comments Patient Comments I'm in pain a good share of the time, and I don't really enjoy that. Pt notes that between her head, back, and a recent pain along her right ribs, she is in pain about 85 % of the time. PT-OP-E Functional Tests Start: 04/25/19 17:48 Freq: Status: Active Protocol: Document 04/25/19 14:30 DCW (Rec: 04/26/19 09:34 DCW [id number]) Functional Tests Apley's Scratch Test Action 1- Left Lateral opposite shoulder Action 1- Right Lateral opposite shoulder Action 2- Left T2 Action 2- Right C6 Action 3- Left T7 Action 3- Right T12 PT-OP-F Manual Assessment Start: 04/25/19 17:48 Freq: Status: Active Protocol: Document 04/25/19 14:30 DCW (Rec: 04/26/19 09:29 DCW [id number]) Manual Assessments Soft Tissue Assessment Soft Tissue Mobility Assessment Tenderness to palpation: 3/4 - Wincing and withdraw along right supraspinatus and infraspinatus Joint Mobility Assessment Joint Mobility Assessment Tenderness to palpation: 2/4 - Pain with wincing along subacromial space PT-OP-K Range of Motion Start: 04/25/19 17:48 Freq: Status: Active Protocol: Document 04/25/19 14:30 DCW (Rec: 04/25/19 18:00 DCW [id number]) Shoulder Goniometric Range of Motion Shoulder Right Active Testing Position Sitting Flexion 140 Extension 108 External Rotation at 0 degrees Abduction 55 Left Active Shoulder ROM WFL Yes Testing Position Sitting Flexion 180 Abduction 180 External Rotation at 0 degrees Abduction 53 PT-OP-L Special Tests Start: 04/25/19 17:48 Freq: Status: Active Protocol: Document 04/25/19 14:30 DCW (Rec: 04/26/19 09:29 DCW [id number]) Special Tests Shoulder Special Tests Passive ER Rotator Cuff Test Results Mild R pain Drop Arm Rotator Cuff Test Results Negative Carvalho Bharath Impingement Test Results Positive Right Painful Arc Test Results Positive Right Lift-Off Rotator Cuff Test Results Negative Belly Press Test Results Negative PT-OP-M Strength Start: 04/25/19 17:48 Freq: Status: Active Protocol: Document 04/25/19 14:30 DCW (Rec: 04/25/19 17:59 DCW [id number]) Shoulder Strength Shoulder Manual Muscle Testing Right Flexion 4 Good Abduction (C5) 4 Good External Rotation 4+ Good+ Internal Rotation 4+ Good+ Left Flexion 4+ Good+ Abduction (C5) 4+ Good+ External Rotation 4+ Good+ Internal Rotation 4+ Good+ PT-OP-Q Treatments Start: 04/25/19 17:48 Freq: Status: Active Protocol: Document 06/13/19 16:00 DCW (Rec: 06/13/19 16:49 DCW [id number]) Cardio Equipment Upper Body Ergometer (UBE) Duration (Minutes) 6 RPM 60 Seat Position 10 Height 3 Other fwd/bkwd Therapeutic Exercises Supine Exercises shoulder flexion Side bilateral Equipment Used 2# DB Reps/Minutes 10 x2 Comments cues on eccentric control Sidelying Exercises shd abd Side right Equipment Used 2lbs Reps/Minutes 15 x shd horizontal abd Side right Equipment Used 2 lbs DB Reps/Minutes 10 x2 shd ER Side right Equipment Used 2lbs Reps/Minutes 10 x each Sitting Exercises Pulleys Sitting Exercise Name Shoulder Flexion, Abduction Side bilateral Equipment Used Pulleys Standing Exercises shoulder press Side bilateral Equipment Used PVC bar Reps/Minutes 10 x2 ball hit Standing Exercise Name balloon Side bilateral Resistance 2lb ankle weight at wrists Reps/Minutes 3 mins x 3 Extension Side bilateral Equipment Used PVC bar Reps/Minutes 10 x2 ER/IR Standing Exercise Name IR - PVC up back Side bilateral Manual Therapy Treatment Soft Tissue Mobilization Supraspinatus Mobilization Type Sustained Pressure,Trigger Point Release Intensity/Depth Moderate Body Position Sitting PT-OP-T Assessment and Plan Start: 04/25/19 17:48 Freq: Status: Active Protocol: Document 06/13/19 16:00 DCW (Rec: 06/13/19 16:49 DCW [id number]) Physical Therapy Assessment Impairments Impairments Functional Mobility,Pain,ROM, Soft Tissue Mobility Goals 3 Impairment Pt shoulder pain limits sleep Mcfp Goal (LTG) 06/06 goal met: Pt is able to sleep on right side uninturrupted for 6 hours . LTG Duration 07/19/19 2 Impairment Pt has limited ROM which creates functional mobility limitations Short Term Goal (STG) Pt to don jacket with no increased shoulder pain STG Duration 06/07/19 Mcfp Goal (LTG) 06/06 goal met: Pt is able to reach overhead and turn off her closet light without increased shoulder pain. LTG Duration 07/19/19 1 Impairment Pt does not have an appropriate home exercise program Short Term Goal (STG) 06/06 goal met: Pt is independent and compliant with an appropriate HEP STG Duration 05/27/19 Assessment Summary Assessment Pt's shoulder continues to improve, showing decreased pain and improved mobility. Pt having increased difficulty with other areas, mainly her back and head. Physical Therapy Plan Frequency and Duration Frequency of Treatment 2x/Week Duration of Treatment 12 weeks Plan of Care Start Date 04/25/19 Plan of Care End Date 07/19/19 Therapeutic Interventions Therapeutic Interventions Home Exercise Program,Joint Mobilizations,Manual Therapy, Patient/Caregiver Education, Self-Care/Home Management,Soft Tissue Mobilization, Therapeutic Exercises Modalities Cold Pack/Ice Massage,Electric Stimulation,Hot Packs, Ultrasound Next Visit Focus/Plan Next Note Type Treatment Note Next Visit Plan STM, Shoulder ROM, progress strengthening
--- NOTE | 2019-06-15 12:50 | PT.OTN ---
Current Diagnoses Stiffness of right shoulder, not elsewhere classified (06/15/19) Other injury of muscle(s) and tendon(s) of the rotator cuff of right shoulder, subsequent encounter (06/15/19) History of falling (06/15/19) Physical Therapy Treatment Note PT-OP-A Visit Information Start: 04/25/19 17:48 Freq: Status: Active Protocol: Document 06/15/19 12:00 DCW (Rec: 06/15/19 12:50 DCW [id number]) Out-Patient Physical Therapy Visit Information Visit Information Visit Type Treatment Note Visit Start Time 12:00 Visit Stop Time 12:45 Total Visit Minutes 45 Visit Number 12 Number of DIETARY MANAGER Visits 0 Evaluation Information Evaluation Date 04/25/19 PT-OP-B Current Condition Start: 04/25/19 17:48 Freq: Status: Active Protocol: Document 04/25/19 14:30 DCW (Rec: 04/26/19 12:26 DCW [id number]) Current Condition History of Current Condition Onset Date 2-3 months Current Complaints R shoulder pain History of Current Condition Pt is a 78 year old female presenting with a 2-3 month history of right shoulder pain . Pt notes it comes and goes, and most of the time really isn't all that bad, but has occasional very very bad pain with certain movements. Pt has difficulty with reaching overhead to turn off a light, or reaching back to don her jacket. Pt admits to some recent falls, the most recent one on , which was me making a bad decision to walk on very clean, shiny floors while wearing socks. Pt thinks one of her falls may have been the cause of her shoulder pain, but she isn't really sure. Prior Treatments and Tests Shoulder x-ray: IMPRESSION: Degenerative change. No acute fracture dislocation or suspicious bony lesion. Per: Dequan Hickey M.D. on 02/20/2019 PT-OP-C Subjective Start: 04/25/19 17:48 Freq: Status: Active Protocol: Document 06/15/19 12:00 DCW (Rec: 06/15/19 12:50 DCW [id number]) OP-PT Subjective Patient Comments Patient Comments Pt notes she felt okay following PT on Wednesday, but is still in a lot of pain, it 's just not anything from physical therapy. PT-OP-E Functional Tests Start: 04/25/19 17:48 Freq: Status: Active Protocol: Document 04/25/19 14:30 DCW (Rec: 04/26/19 09:34 DCW [id number]) Functional Tests Apley's Scratch Test Action 1- Left Lateral opposite shoulder Action 1- Right Lateral opposite shoulder Action 2- Left T2 Action 2- Right C6 Action 3- Left T7 Action 3- Right T12 PT-OP-F Manual Assessment Start: 04/25/19 17:48 Freq: Status: Active Protocol: Document 04/25/19 14:30 DCW (Rec: 04/26/19 09:29 DCW [id number]) Manual Assessments Soft Tissue Assessment Soft Tissue Mobility Assessment Tenderness to palpation: 3/4 - Wincing and withdraw along right supraspinatus and infraspinatus Joint Mobility Assessment Joint Mobility Assessment Tenderness to palpation: 2/4 - Pain with wincing along subacromial space PT-OP-K Range of Motion Start: 04/25/19 17:48 Freq: Status: Active Protocol: Document 04/25/19 14:30 DCW (Rec: 04/25/19 18:00 DCW [id number]) Shoulder Goniometric Range of Motion Shoulder Right Active Testing Position Sitting Flexion 140 Extension 108 External Rotation at 0 degrees Abduction 55 Left Active Shoulder ROM WFL Yes Testing Position Sitting Flexion 180 Abduction 180 External Rotation at 0 degrees Abduction 53 PT-OP-L Special Tests Start: 04/25/19 17:48 Freq: Status: Active Protocol: Document 04/25/19 14:30 DCW (Rec: 04/26/19 09:29 DCW [id number]) Special Tests Shoulder Special Tests Passive ER Rotator Cuff Test Results Mild R pain Drop Arm Rotator Cuff Test Results Negative Carvalho Bharath Impingement Test Results Positive Right Painful Arc Test Results Positive Right Lift-Off Rotator Cuff Test Results Negative Belly Press Test Results Negative PT-OP-M Strength Start: 04/25/19 17:48 Freq: Status: Active Protocol: Document 04/25/19 14:30 DCW (Rec: 04/25/19 17:59 DCW [id number]) Shoulder Strength Shoulder Manual Muscle Testing Right Flexion 4 Good Abduction (C5) 4 Good External Rotation 4+ Good+ Internal Rotation 4+ Good+ Left Flexion 4+ Good+ Abduction (C5) 4+ Good+ External Rotation 4+ Good+ Internal Rotation 4+ Good+ PT-OP-Q Treatments Start: 04/25/19 17:48 Freq: Status: Active Protocol: Document 06/15/19 12:00 DCW (Rec: 06/15/19 12:50 DCW [id number]) Cardio Equipment Upper Body Ergometer (UBE) Duration (Minutes) 6 RPM 60 Seat Position 10 Height 3 Other fwd/bkwd Therapeutic Exercises Sitting Exercises Pulleys Sitting Exercise Name Shoulder Flexion, Abduction Side bilateral Equipment Used Pulleys Standing Exercises shd flexion /abd Standing Exercise Name staggered stance (next to grab bar) Resistance 2# ankle weight at wrists Reps/Minutes 30 sec x 4 Comments ball toss shoulder press Side bilateral Equipment Used PVC bar Reps/Minutes 10 x2 Extension Side bilateral Equipment Used PVC bar Reps/Minutes 10 x2 ER/IR Standing Exercise Name IR - PVC up back Side bilateral Manual Therapy Treatment Soft Tissue Mobilization Deltoid Body Location R Deltoid Mobilization Type Strumming Rhomboids Body Location R Rhomboids Mobilization Type Strumming,Sustained Pressure Supraspinatus Mobilization Type Sustained Pressure,Trigger Point Release Intensity/Depth Moderate Body Position Sitting PT-OP-T Assessment and Plan Start: 04/25/19 17:48 Freq: Status: Active Protocol: Document 06/15/19 12:00 DCW (Rec: 06/15/19 12:50 DCW [id number]) Physical Therapy Assessment Impairments Impairments Functional Mobility,Pain,ROM, Soft Tissue Mobility Goals 3 Impairment Pt shoulder pain limits sleep Prison Goal (LTG) 06/06 goal met: Pt is able to sleep on right side uninturrupted for 6 hours . LTG Duration 07/19/19 2 Impairment Pt has limited ROM which creates functional mobility limitations Short Term Goal (STG) Pt to don jacket with no increased shoulder pain STG Duration 06/07/19 Humane Agent Goal (LTG) 06/06 goal met: Pt is able to reach overhead and turn off her closet light without increased shoulder pain. LTG Duration 07/19/19 1 Impairment Pt does not have an appropriate home exercise program Short Term Goal (STG) 06/06 goal met: Pt is independent and compliant with an appropriate HEP STG Duration 05/27/19 Assessment Summary Assessment Pt still complaining of pain in her side and back, but her shoulder ROM and strength are much improved. Physical Therapy Plan Frequency and Duration Frequency of Treatment 2x/Week Duration of Treatment 12 weeks Plan of Care Start Date 04/25/19 Plan of Care End Date 07/19/19 Therapeutic Interventions Therapeutic Interventions Home Exercise Program,Joint Mobilizations,Manual Therapy, Patient/Caregiver Education, Self-Care/Home Management,Soft Tissue Mobilization, Therapeutic Exercises Modalities Cold Pack/Ice Massage,Electric Stimulation,Hot Packs, Ultrasound Next Visit Focus/Plan Next Note Type Treatment Note Next Visit Plan STM, Shoulder ROM, progress strengthening
--- NOTE | 2019-06-19 11:54 | PT.OTN ---
Current Diagnoses Stiffness of right shoulder, not elsewhere classified (06/19/19) Other injury of muscle(s) and tendon(s) of the rotator cuff of right shoulder, subsequent encounter (06/19/19) History of falling (06/19/19) Physical Therapy Treatment Note PT-OP-A Visit Information Start: 04/25/19 17:48 Freq: Status: Active Protocol: Document 06/19/19 11:15 DCW (Rec: 06/19/19 11:51 DCW [id number]) Out-Patient Physical Therapy Visit Information Visit Information Visit Type Discharge Summary Visit Start Time 11:15 Visit Stop Time 11:32 Total Visit Minutes 17 Visit Number 13 Number of GIFTS OFFICER Visits 0 Evaluation Information Evaluation Date 04/25/19 PT-OP-B Current Condition Start: 04/25/19 17:48 Freq: Status: Active Protocol: Document 04/25/19 14:30 DCW (Rec: 04/26/19 12:26 DCW [id number]) Current Condition History of Current Condition Onset Date 2-3 months Current Complaints R shoulder pain History of Current Condition Pt is a 78 year old female presenting with a 2-3 month history of right shoulder pain . Pt notes it comes and goes, and most of the time really isn't all that bad, but has occasional very very bad pain with certain movements. Pt has difficulty with reaching overhead to turn off a light, or reaching back to don her jacket. Pt admits to some recent falls, the most recent one on , which was me making a bad decision to walk on very clean, shiny floors while wearing socks. Pt thinks one of her falls may have been the cause of her shoulder pain, but she isn't really sure. Prior Treatments and Tests Shoulder x-ray: IMPRESSION: Degenerative change. No acute fracture dislocation or suspicious bony lesion. Per: Dequan Hickey M.D. on 02/20/2019 PT-OP-C Subjective Start: 04/25/19 17:48 Freq: Status: Active Protocol: Document 06/19/19 11:15 DCW (Rec: 06/19/19 11:51 DCW [id number]) OP-PT Subjective Patient Comments Patient Comments Pt reports she was visiting [place] over the weekend, where her son is moving, and put in a deposit on a unit at an Independent Living Facility . Pt notes her shoulder continues to feel much better. PT-OP-E Functional Tests Start: 04/25/19 17:48 Freq: Status: Active Protocol: Document 06/19/19 11:15 DCW (Rec: 06/19/19 11:54 DCW [id number]) Functional Tests Apley's Scratch Test Action 1- Left Lateral opposite shoulder Action 1- Right Lateral opposite shoulder Action 2- Left T2 Action 2- Right T4 Action 3- Left T7 Action 3- Right T6 PT-OP-F Manual Assessment Start: 04/25/19 17:48 Freq: Status: Active Protocol: Document 06/19/19 11:15 DCW (Rec: 06/19/19 11:54 DCW [id number]) Manual Assessments Soft Tissue Assessment Soft Tissue Mobility Assessment Tenderness to palpation: 1/4 - complaint of pain along right infraspinatus Joint Mobility Assessment Joint Mobility Assessment Tenderness to palpation: 1/4 - Complaint of pain along subacromial space PT-OP-K Range of Motion Start: 04/25/19 17:48 Freq: Status: Active Protocol: Document 06/19/19 11:15 DCW (Rec: 06/19/19 11:54 DCW [id number]) Shoulder Goniometric Range of Motion Shoulder Right Active Testing Position Sitting Flexion 170 Extension 180 External Rotation at 0 degrees Abduction 55 Left Active Shoulder ROM WFL Yes Testing Position Sitting Flexion 180 Abduction 180 External Rotation at 0 degrees Abduction 53 PT-OP-L Special Tests Start: 04/25/19 17:48 Freq: Status: Active Protocol: Document 06/19/19 11:15 DCW (Rec: 06/19/19 11:54 DCW [id number]) Special Tests Shoulder Special Tests Passive ER Rotator Cuff Test Results Negative Drop Arm Rotator Cuff Test Results Negative Carvalho Bharath Impingement Test Results Negative Painful Arc Test Results Negative Lift-Off Rotator Cuff Test Results Negative Belly Press Test Results Negative PT-OP-M Strength Start: 04/25/19 17:48 Freq: Status: Active Protocol: Document 06/19/19 11:15 DCW (Rec: 06/19/19 11:54 DCW [id number]) Shoulder Strength Shoulder Manual Muscle Testing Right Flexion 4 Good Abduction (C5) 4+ Good+ External Rotation 4+ Good+ Internal Rotation 5 Normal Left Flexion 4+ Good+ Abduction (C5) 5 Normal External Rotation 4+ Good+ Internal Rotation 5 Normal PT-OP-Q Treatments Start: 04/25/19 17:48 Freq: Status: Active Protocol: Document 06/19/19 11:15 DCW (Rec: 06/19/19 11:51 DCW [id number]) Cardio Equipment Upper Body Ergometer (UBE) Duration (Minutes) 6 RPM 60 Seat Position 10 Height 3 Other fwd/bkwd Therapeutic Exercises Sitting Exercises Pulleys Sitting Exercise Name Shoulder Flexion, Abduction Side bilateral Equipment Used Pulleys Manual Therapy Treatment Other Other Manual Treatments ROM, MMT, SPecial testing PT-OP-T Assessment and Plan Start: 04/25/19 17:48 Freq: Status: Active Protocol: Document 06/19/19 11:15 DCW (Rec: 06/19/19 11:51 DCW [id number]) Physical Therapy Assessment Impairments Impairments Functional Mobility,Pain,ROM, Soft Tissue Mobility Goals 3 Impairment Pt shoulder pain limits sleep Plugger Worker Goal (LTG) 06/06 goal met: Pt is able to sleep on right side uninturrupted for 6 hours . LTG Duration Met 2 Impairment Pt has limited ROM which creates functional mobility limitations Short Term Goal (STG) Pt to don jacket with no increased shoulder pain STG Duration Met Penitentiary Goal (LTG) 06/06 goal met: Pt is able to reach overhead and turn off her closet light without increased shoulder pain. LTG Duration Met 1 Impairment Pt does not have an appropriate home exercise program Short Term Goal (STG) 2 goal met: Pt is independent and compliant with an appropriate HEP STG Duration Met Assessment Summary Assessment Pt shoulder doing very well, and pt has met all her goals. Between her great progress and her busy life getting ready to move to [place], she is agreeable to discharge at this time. After learning she would be discharging, pt reported that she would prefer to just leave early, so she could continue packing. Physical Therapy Plan Frequency and Duration Frequency of Treatment 2x/Week Duration of Treatment 12 weeks Plan of Care Start Date 04/25/19 Plan of Care End Date 07/19/19 Therapeutic Interventions Therapeutic Interventions Home Exercise Program,Joint Mobilizations,Manual Therapy, Patient/Caregiver Education, Self-Care/Home Management,Soft Tissue Mobilization, Therapeutic Exercises Modalities Cold Pack/Ice Massage,Electric Stimulation,Hot Packs, Ultrasound Next Visit Focus/Plan Next Note Type Treatment Note Next Visit Plan STM, Shoulder ROM, progress strengthening
--- NOTE | 2019-06-19 11:54 | PT.OPPOC ---
Physical, Occupational & Speech Therapy At [facility] Current Diagnoses Stiffness of right shoulder, not elsewhere classified (06/19/19) Other injury of muscle(s) and tendon(s) of the rotator cuff of right shoulder, subsequent encounter (06/19/19) History of falling (06/19/19) Visit Care Team Role Provider Type Maryanne Gaviria PA-C Attending Provider Advanced Preload Supervisor Family Provider Primary Care Provider Specialty: Internal Medicine Address: [address] [place] [address], [facility] Email: [email or web address] PT-OP-T Assessment and Plan Start: 04/25/19 17:48 Freq: Status: Active Protocol: Document 06/19/19 11:15 DCW (Rec: 06/19/19 11:51 DCW [id number]) Physical Therapy Assessment Impairments Impairments Functional Mobility,Pain,ROM, Soft Tissue Mobility Goals 3 Impairment Pt shoulder pain limits sleep Hvac Service Technician Goal (LTG) 06/06 goal met: Pt is able to sleep on right side uninturrupted for 6 hours . LTG Duration Met 2 Impairment Pt has limited ROM which creates functional mobility limitations Short Term Goal (STG) Pt to don jacket with no increased shoulder pain STG Duration Met Hvac Service Technician Goal (LTG) 06/06 goal met: Pt is able to reach overhead and turn off her closet light without increased shoulder pain. LTG Duration Met 1 Impairment Pt does not have an appropriate home exercise program Short Term Goal (STG) 06/06 goal met: Pt is independent and compliant with an appropriate HEP STG Duration Met Assessment Summary Assessment Pt shoulder doing very well, and pt has met all her goals. Between her great progress and her busy life getting ready to move to [place], she is agreeable to discharge at this time. After learning she would be discharging, pt reported that she would prefer to just leave early, so she could continue packing. Physical Therapy Plan Frequency and Duration Frequency of Treatment 2x/Week Duration of Treatment 12 weeks Plan of Care Start Date 04/25/19 Plan of Care End Date 07/19/19 Therapeutic Interventions Therapeutic Interventions Home Exercise Program,Joint Mobilizations,Manual Therapy, Patient/Caregiver Education, Self-Care/Home Management,Soft Tissue Mobilization, Therapeutic Exercises Modalities Cold Pack/Ice Massage,Electric Stimulation,Hot Packs, Ultrasound Next Visit Focus/Plan Next Note Type Treatment Note Next Visit Plan STM, Shoulder ROM, progress strengthening Plan of Care Dates Plan of Care Start Date 04/25/19 Plan of Care End Date 07/19/19 Electronically Signed by: Graeme Tilley, PT 06/19/19 2730 Please Sign and Return: I have reviewed this Plan of Care and certify that the skilled therapy services above are required to meet the patient?s needs. Physician Signature Date Printed Name and Credentials Clinical Instructor Signature Printed Name and Credentials
== END 2019-06-20 13:13 | disposition home health service (06) ==
LOC: PHYS 11:15
PROVIDERS: Family Provider Physician Assistant; PCP Physician Assistant; Visit Provider Physician Assistant
DX: M25.611 Stiffness of right shoulder, not elsewhere classified (principal); S46.091D Other injury of muscle(s) and tendon(s) of the rotator cuff of right shoulder, subsequent encounter; Z91.81 History of falling
CPT/HCPCS: 97110; 97140; 97161

== ENCOUNTER → 2019-06-22 18:42 | Outpatient (ROUT) | payer MEDICARE, SELFPAY ==
[2018-01-24 18:59] VITALS: BMI 25.8
[2019-06-22 18:55] LABS: Add Manual Diff / Slide Review NO; Basophils Absolute Auto 100 /uL (0-100); Eosinophils Absolute Auto 200 /uL (0-450); Eosinophils Percent Auto 2.2 % (2-4); Hematocrit 38.3 % (36-46); Hemoglobin 12.6 g/dL (12.0-16.0); Lymphocytes Absolute Auto 2700 /uL (1100-4500); Lymphocytes Percent Auto 34.2 % (25-40); Mean Corpuscular HGB Conc 32.8 % (30-36); Mean Corpuscular Hemoglobin 29.2 PG (26-34); Mean Corpuscular Volume 88.8 fL (80-100); Monocytes Absolute Auto 1000 /uL (0-900); Monocytes Percent Auto 13.2 % (3-14); Neutrophils Absolute Auto 3900 /uL (1500-7000); Neutrophils Percent Auto 49.4 % (50-75); Platelet Count 333 X10^3/uL (150-400); Red Blood Cell Count 4.31 X10^6/uL (4.0-5.2); Red Cell Distribution Width 16.1 % (11.6-14.8); White Blood Cell Count 7.9 X10^3/uL (4.5-11.0)
[2019-06-22 19:06] LABS: Alanine Aminotransferase 12 IU/L (<35); Albumin 3.7 g/dL (3.5-5.0); Albumin Globulin Ratio 1.1 (1.0-2.8); Alkaline Phosphatase 66 U/L (38-126); Aspartate Aminotransferase 43 IU/L (14-36); BUN Creatinine Ratio 23.3 (6-22); Bilirubin Total 0.4 mg/dL (0.2-1.3); Blood Urea Nitrogen 28 mg/dL (7-17); C-Reactive Protein Quant 1.3 mg/dL (<1.0); Calcium 9.7 mg/dL (8.4-10.2); Carbon Dioxide 21 mmol/L (22-32); Chloride 107 mmol/L (98-107); Estimated Glomerular Filt Rate 43.4 mL/min (>60); Globulin 3.5 g/dL (1.7-4.1); Glucose 54 mg/dL (80-110); HEMOLYSIS 19 (0-50); Sodium 136 mmol/L (137-145); Total Protein 7.2 g/dL (6.3-8.2)
[2019-06-22 19:09] LABS: Potassium 5.5 mmol/L (3.4-5.1)
[2019-06-22 19:21] LABS: Vitamin D 25 Hydroxy (D3) 38.7 ng/mL (30.0-100.0)
[2019-06-22 19:31] LABS: Erythrocyte Sedimentation Rate 56 MM/HR (0-20)
[2019-06-22 19:35] LABS: TSH w/ Reflex to FT4 0.34 uIU/mL (0.47-4.68)
[2019-06-22 20:02] LABS: Free T4, Direct Thyroxine 1.04 ng/dL (0.78-2.19)
== END ==
PROVIDERS: Family Provider Physician Assistant; PCP Physician Assistant; Visit Provider Physician Assistant
DX: G89.4 Chronic pain syndrome (principal); M79.10 Myalgia, unspecified site; M13.0 Polyarthritis, unspecified; E78.5 Hyperlipidemia, unspecified; R53.83 Other fatigue
CPT/HCPCS: 80053; 82306; 84439; 84443; 85025; 85651; 86140

== ENCOUNTER → 2019-06-27 18:27 | Outpatient (ROUT) | payer MEDICARE, SELFPAY ==
[2018-01-24 18:59] VITALS: BMI 25.8
[2019-06-27 18:55] LABS: Add Manual Diff / Slide Review NO; Basophils Absolute Auto 100 /uL (0-100); Basophils Percent Auto 0.8 % (0-2); Eosinophils Absolute Auto 0 /uL (0-450); Eosinophils Percent Auto 0.3 % (2-4); Hematocrit 36.6 % (36-46); Lymphocytes Absolute Auto 1600 /uL (1100-4500); Lymphocytes Percent Auto 16.3 % (25-40); Mean Corpuscular HGB Conc 32.7 % (30-36); Mean Corpuscular Volume 88.7 fL (80-100); Monocytes Absolute Auto 400 /uL (0-900); Monocytes Percent Auto 3.6 % (3-14); Neutrophils Absolute Auto 7800 /uL (1500-7000); Platelet Count 377 X10^3/uL (150-400); Red Blood Cell Count 4.13 X10^6/uL (4.0-5.2); Red Cell Distribution Width 16.3 % (11.6-14.8); White Blood Cell Count 9.8 X10^3/uL (4.5-11.0)
[2019-06-27 19:01] LABS: Alanine Aminotransferase 14 IU/L (<35); Albumin 3.7 g/dL (3.5-5.0); Alkaline Phosphatase 68 U/L (38-126); Aspartate Aminotransferase 38 IU/L (14-36); BUN Creatinine Ratio 19.5 (6-22); Bilirubin Total 0.4 mg/dL (0.2-1.3); Blood Urea Nitrogen 23 mg/dL (7-17); Calcium 9.8 mg/dL (8.4-10.2); Carbon Dioxide 24 mmol/L (22-32); Chloride 103 mmol/L (98-107); Estimated Glomerular Filt Rate 44.3 mL/min (>60); Globulin 3.6 g/dL (1.7-4.1); Glucose 176 mg/dL (80-110); HEMOLYSIS < 15 (0-50); Potassium 5.2 mmol/L (3.4-5.1); Sodium 136 mmol/L (137-145); Total Protein 7.3 g/dL (6.3-8.2)
[2019-06-27 19:31] LABS: TSH w/ Reflex to FT4 0.49 uIU/mL (0.47-4.68)
[2019-06-28 10:32] LABS: Hemoglobin A1C% w Est Avg Glu 5.9 % (4.0-6.0)
[2019-06-30 13:26] LABS: Cytoplasmic C-ANCA <1:20 titer (Neg:<1:20); Perinuclear P-ANCA <1:20 titer (Neg:<1:20)
[2019-06-30 20:33] LABS: CCP Antibodies IgG/IgA >250 units (0-19)
[2019-07-01 13:30] LABS: ANA Screen, IFA Negative (.); Parathyroid Hormone Int 62 pg/mL (15-65)
== END ==
PROVIDERS: Family Provider Physician Assistant; PCP Physician Assistant; Visit Provider Physician Assistant
DX: E78.5 Hyperlipidemia, unspecified (principal); R79.89 Other specified abnormal findings of blood chemistry; R73.09 Other abnormal glucose; R79.82 Elevated C-reactive protein (CRP)
CPT/HCPCS: 80053; 83036; 83970; 84443; 85025; 86038; 86200